=== PATIENT | male | born 1930 | race Hispanic/Latino ===

== ENCOUNTER 2016-05-16 09:26 | Inpatient (IN) | payer MEDICARE, MEDICAID ==
--- NOTE | 2016-05-16 10:05 | ED PDOC ---
Arrival/HPI - General Chief Complaint: Abnormal Labs Time Seen by Provider: 05/16/16 09:47 Historian: Patient - History of Present Illness Narrative History of Present Illness (Text): 05/16/16 10:06 Blair Juarez is an 85 year old male who presents to the emergency department sent from [facility] for history of abdominal pain and reportedly recent abnormal Abdomen CT. Patient complains of having diffused abdominal pain although he is an extremely poor historian due to dementia and reported history of mental retardation. PMD: Codi Pringle MD Past Medical History - Provider Review Nursing Documentation Reviewed: Yes - Cardiac Hx Pacemaker: No - Neurological Hx Paralysis: No - Hematological/Oncological Hx Blood Transfusions: No - Musculoskeletal/Rheumatological Hx Musculoskeletal Disorders: No - Psychiatric Hx Substance Use: No - Anesthesia Hx Anesthesia Reactions: No Hx Malignant Hyperthermia: No Family/Social History - Physician Review Nursing Documentation Reviewed: Yes Family/Social History: No Known Family HX Smoking Status: Unknown If Ever Smoked Hx Alcohol Use: No Hx Substance Use: No Allergies/Home Meds Allergies/Adverse Reactions: Allergies No Known Allergies Allergy (Verified 05/16/16 09:31) Home Medications: Home Meds Medication Instructions Recorded Confirmed Acetaminophen [Tylenol] 2 tab PO Q4H PRN 02/19/15 04/07/16 Docusate [Colace] 100 mg PO BID 02/19/15 04/07/16 Magnesium Hydroxide [Milk Of 30 ml PO PRN PRN 02/19/15 04/07/16 Magnesia] Ferrous Sulfate [Feosol] 324 mg PO DAILY 03/31/16 04/07/16 Review of Systems - Review of Systems Systems not reviewed;Unavailable: Dementia Constitutional: absent: Fevers Respiratory: absent: SOB, Cough Cardiovascular: absent: Chest Pain Gastrointestinal: Abdominal Pain. absent: Diarrhea, Nausea, Vomiting Genitourinary Male: absent: Dysuria, Frequency, Hematuria, Urinary Output Changes Musculoskeletal: absent: Back Pain, Neck Pain Neurological: absent: Headache, Dizziness Physical Exam - Physical Exam Narrative Physical Exam (Text): 05/16/16 10:04 Head: Atraumatic. Normocephalic. Eyes: PERRL. EOMI. Conjunctivae are not pale. ENT: Mucous membranes are moist and intact. No drooling or pooling of secretions. Neck: Supple. Full ROM. No JVD. No lymphadenopathy. No midline tenderness. Cardiovascular: Regular rate. Regular rhythm. Systolic murmur. Pulmonary/Chest: No evidence of respiratory distress. Clear to auscultation bilaterally. No wheezing, rales or rhonchi. Abdominal: Soft and non-distended. There is mild tenderness, but no focal rebound or guarding. There is fullness to bilateral inguinal regions, mild tenderness to palpation but soft. Genitourinary: bilateral scrotal swelling, right greater than left, no significant pain on palpation, no skin ulcerations, no penile drainage Back: No CVA tenderness. No midline tenderness. Extremities: No cyanosis. No clubbing. Full range of motion in all extremities. No calf tenderness. Distal pulses intact. Skin: Skin is warm and dry. No petechiae. No purpura. Neurological: Alert, awake. No facial droop. No slurred speech. No focal weakness noted. Psychiatric: Answers questions. Poor interaction. Does not follow all commands but answers some questions. Nontoxic appearing. Vital Signs Reviewed: Yes Vital Signs Temp Pulse Resp BP Pulse Ox 05/16/16 11:26 97 H 18 138/65 98 05/16/16 09:45 97.4 F L 107 H 18 140/68 98 Temperature: Afebrile Blood Pressure: Normal Pulse: Tachycardic Respiratory Rate: Normal Appearance: Positive for: Well-Appearing, Non-Toxic, Comfortable Pain Distress: None Medical Decision Making ED Course and Treatment: 05/16/16 10:06 Impression: 85 year old male presenting from [facility]term for abnormal Abdomen CT & and diffuse abdominal pain. Differential Diagnosis included but are not limited to: hernia, abdominal mass Plan: -- consult with PMD and package winder with review of recent ct abdomen -- Reassess and disposition CT Abdomen and Pelvis without intravenous contrast on 05/12/16 Dictator : Tyler Harris MD Impression: Right inguinal hernia containing distal/terminal ileum and cecum/ proximal ascending colon. Irregular thickening of the ileocecal valve suspicious for malignancy. Small pericolonic nodes are noted adjacent to the herniated cecum. There is also a small amount of stranding of the pericecal fat. No evidence of incarceration. Left inguinal hernia containing distal descending/ sigmoid colon. No evidence of incarceration. No bowel obstruction. The findings in this examination were discussed by telephone with Dr. Luna at 9:48 a.m. on 05/15/2016. Progress Notes: Patient sent from [facility]. snf report reviewed and further history obtained from PMD Dr. Himanshu Pringle. I reviewed patient's recent CT abdomen. On exam, there is lower abdominal inguinal swelling with scrotal swelling, although no vomiting, no melena or bright red blood per rectum. Patient with no pain on testicular palpation. Given ct findings, will consult GI, Henrietta Manueles from GI notified, and patient has been initiated on iv fluids. Repeat heart rate 88. Re-exam, no peritoneal signs. Will admit for evaluation for possible abdominal mass, re-eval hernias. 05/16/16 14:03 05/16/16 14:07 Hemoglobin 10.4. Most recent labs available from several years ago. NO MELENA OR BRIGHT RED BLOOD PER RECTUM NOTED. Cardiovascularly stable in ED with no hypotension. - Lab Interpretations Lab Results: 05/16/16 11:00 05/16/16 11:00 Lab Results 05/16/16 12:25: Blood Type Confirm O POSITIVE 05/16/16 11:15: Urine Color Yellow, Urine Appearance Clear, Urine pH 6.0, Ur Specific [place] 1.020, Urine Protein Negative, Urine Glucose (UA) Negative, Urine Ketones Negative, Urine Blood Negative, Urine Nitrate Negative, Urine Bilirubin Negative, Urine Urobilinogen 0.2, Ur Leukocyte Esterase Small H, Urine RBC 0 - 2, Urine WBC 2 - 5, Ur Epithelial Cells 0 - 2, Urine Bacteria Few 05/16/16 11:00: WBC 13.5 H, RBC 4.18, Hgb 10.4 L, Hct 34.1 L, MCV 81.6, MCH 24.9 L, MCHC 30.5 L, RDW 16.5 H, Plt Count 397, MPV 10.3, Gran % 72.5 H, Lymph % (Auto) 7.7 L, Dixon % (Auto) 16.2 H, Eos % (Auto) 3.4, Baso % (Auto) 0.2, Gran # 9.75 H, Lymph # 1.0 L, Dixon # 2.2 H, Eos # 0.5, Baso # 0.03, PT 11.9 H, INR 1.10 H, APTT 28.5, Sodium 140, Potassium 4.1, Chloride 104, Carbon Dioxide 27, Anion Gap 13, BUN 13, Creatinine 0.8, Est GFR ( Amer) > 60, Est GFR (Non- Af Amer) > 60, Random Glucose 85, Calcium 8.7, Total Bilirubin 0.3, AST 28, ALT 15, Alkaline Phosphatase 80, Lactate Dehydrogenase 445, Total Creatine Kinase 43 , Troponin I 0.01, Total Protein 7.1, Albumin 3.5, Globulin 3.6, Albumin/ Globulin Ratio 1.0 L, Blood Type O POSITIVE, Antibody Screen Negative, BBK History Checked No verified bt - RAD Interpretation Narrative RAD Interpretations (Text): 05/12/16 09:49 Procedure: CT Abdomen and Pelvis without intravenous contrast Dictator : Tyler Harris MD FINDINGS: LOWER THORAX: Unremarkable. LIVER: Unremarkable. No gross lesion or ductal dilatation. GALLBLADDER AND BILE DUCTS: Unremarkable. PANCREAS: Unremarkable. No gross lesion or ductal dilatation. SPLEEN: Unremarkable. ADRENALS: Unremarkable. No mass. KIDNEYS AND URETERS: Unremarkable. No hydronephrosis. No solid mass. VASCULATURE: Unremarkable. No aortic aneurysm. BOWEL: There are bilateral inguinal hernias. The right inguinal hernia contains the cecum and proximal ascending colon as well as a long segment of distal and terminal ileum. There is irregular mural thickening of the ileocecal valve suspicious for malignancy. There are multiple nonspecific small nodes in the pericolonic fat within the hernia sac. There is slight stranding of the adjacent pericolonic at the anterior inferior aspect of the ileocecal valve ( series 2, image 195 through 199). There is no evidence of incarceration. There is a loop of descending/sigmoid colon within the left hernia sac. Again, there is no evidence of incarceration. There are no other abnormal bowel loops identified. APPENDIX: Unremarkable. Normal appendix. PERITONEUM: Unremarkable. No free fluid. No free air. LYMPH NODES: No retroperitoneal or pelvic lymphadenopathy. BLADDER: Unremarkable. REPRODUCTIVE: Normal prostate BONES: No acute fracture. OTHER FINDINGS: None. Impression: Right inguinal hernia containing distal/terminal ileum and cecum/proximal ascending colon. Irregular thickening of the ileocecal valve suspicious for malignancy. Small pericolonic nodes are noted adjacent to the herniated cecum. There is also a small amount of stranding of the pericecal fat. No evidence of incarceration. Left inguinal hernia containing distal descending/ sigmoid colon. No evidence of incarceration. No bowel obstruction. The findings in this examination were discussed by telephone with Dr. Luna at 9:48 a.m. on 05/15/2016. Radiology Orders: 05/16/16 10:33 CHEST PORTABLE [RAD] Stat Regional Program Manager: Radiologist - EKG Interpretation EKG Interpretation (Text): 05/16/16 14:01 EKG at 1309 sinus tachycardia with premature atrial complexes, left anterior fascicular block Interpreted by ED Physician: Yes Type: 12 lead EKG - Medication Orders Current Medication Orders: Discontinued Medications Famotidine (Pepcid) 20 mg IVP STAT STA Stop: 05/16/16 14:09 - Scribe Statement The provider has reviewed the documentation as recorded by the Destiniibe Duglas Krishnan Provider Attestation: All medical record entries made by the Destiniibmaliha were at my direction and personally dictated by me. I have reviewed the chart and agree that the record accurately reflects my personal performance of the history, physical exam, medical decision making, and the department course for this patient. I have also personally directed, reviewed, and agree with the discharge instructions and disposition. Disposition/Present on Arrival - Present on Arrival Any Indicators Present on Arrival: No History of DVT/PE: No History of Uncontrolled Diabetes: No Urinary Catheter: No History of Decub. Ulcer: No History Surgical Site Infection Following: None - Disposition Have Diagnosis and Disposition been Completed?: Yes Diagnosis: Abdominal mass, Inguinal hernia Disposition Time: 12:00 Patient Plan: Admission Patient Problems: Current Active Problems Problem Status Diagnosed Abdominal mass Acute Inguinal hernia Acute Condition: FAIR
[2016-05-16 10:28] VITALS: BMI 21.6
[2016-05-16 11:23] LABS: ADD MANUAL DIFF? NO
[2016-05-16 11:34] LABS: BASO # 0.03 K/mm3 (0.0-2.0); BASO % 0.2 % (0.0-3.0); EOS # 0.5 (0.0-0.7); EOS % 3.4 % (1.5-5.0); GRAN # 9.75 (1.4-6.5); GRAN % 72.5 % (50.0-68.0); HEMATOCRIT 34.1 % (42.0-52.0); LYMPH % 7.7 % (22.0-35.0); MEAN CELL VOLUME 81.6 fL (80.0-105.0); MEAN CORPUSCULAR HEMOGLOBIN 24.9 pg (25.0-35.0); MEAN CORPUSCULAR HGB CONC 30.5 g/dl (31.0-37.0); MEAN PLATELET VOLUME 10.3 fl (7.0-11.0); MONO # 2.2 (0.1-0.6); MONO % 16.2 % (1.0-6.0); PLATELET COUNT 397 10^3/uL (120.0-450.0); RED CELL DISTRIBUTION WIDTH 16.5 % (11.5-14.5); WHITE BLOOD COUNT 13.5 10^3/ul (4.5-11.0)
[2016-05-16 11:39] LABS: ALKALINE PHOSPHATASE 80 U/L (38-133); ALT/SGPT 15 U/L (7-56); AST/SGOT 28 U/L (15-59); BILIRUBIN,TOTAL 0.3 mg/dL (0.2-1.3); BLOOD UREA NITROGEN 13 mg/dL (7-21); CALCIUM 8.7 mg/dL (8.4-10.5); CARBON DIOXIDE 27 mmol/L (21-33); CHLORIDE 104 mmol/L (98-107); GFR AFRICAN-AMERICAN > 60; GLUCOSE,RANDOM 85 mg/dL (70-110); POTASSIUM 4.1 mmol/L (3.6-5.0); SODIUM 140 mmol/L (132-148); TOTAL PROTEIN 7.1 g/dL (5.8-8.3)
[2016-05-16 11:41] LABS: INR 1.1 (0.93-1.08); PARTIAL THROMBOPLASTIN TIME 28.5 Seconds (23.7-30.8)
[2016-05-16 11:47] LABS: URINE BILIRUBIN NEGATIVE (NEGATIVE); URINE BLOOD NEGATIVE (NEGATIVE); URINE GLUCOSE (UA) NEGATIVE (NEGATIVE); URINE KETONE NEGATIVE (NEGATIVE); URINE LEUKOCYTE ESTERASE SMALL Leu/uL (NEGATIVE); URINE PROTEIN NEGATIVE mg/dL (<30 mg/dL); URINE UROBILINOGEN 0.2 E.U./dL (<1 E.U./dL)
[2016-05-16 11:51] LABS: TROPONIN I 0.01 ng/mL
[2016-05-16 11:54] LABS: URINE APPEARANCE CLEAR (CLEAR); URINE COLOR YELLOW (YELLOW)
[2016-05-16 11:56] LABS: URINE RBC 0 - 2 /hpf (0-2)
[2016-05-16 11:57] LABS: URINE BACTERIA FEW (NEG); URINE EPITHELIAL CELLS 0 - 2 /hpf (0-5)
--- NOTE | 2016-05-16 12:03 | RAD ---
HISTORY: abdominal pain COMPARISON: No prior. FINDINGS: LUNGS: No active pulmonary disease. PLEURA: No significant pleural effusion identified, no pneumothorax apparent. CARDIOVASCULAR: Normal. OSSEOUS STRUCTURES: No significant abnormalities. VISUALIZED UPPER ABDOMEN: Normal. OTHER FINDINGS: None. IMPRESSION: No active disease.
[2016-05-16] MEDS: Dextrose 5%/0.45% NS 1,000 ML IV SCH (15:18)
[2016-05-16] MEDS ORDERED: Pneumococcal 23-Valent Vaccine IM ONE (18:58)
[2016-05-16] MEDS ORDERED: Influenza Vaccine 45 MCG/0.5 ml IM ONE (18:58)
--- NOTE | 2016-05-16 23:50 | CON ---
DATE: 05/16/2016 The patient was seen and examined in chart reviewed this afternoon. REQUEST FOR CONSULT: For abdominal mass with hernia. HISTORY OF PRESENT ILLNESS: This is an 85-year-old male, who was sent from [facility] with history of abdominal pain and recent abnormal CT scan. The patient does complain of diffuse abdominal pain. He does have history of dementia and mental retardation and is a poor historian. History obtained from the nursing staff and medical chart. He had an endoscopy and a colonoscopy back in 04/07/16 for anemia. He was found to have internal hemorrhoids, diverticulosis, although it was an incomplete colonoscopy, due to hernia with redundancy of the sigmoid colon. So, the patient was sent for a CT scan of abdomen and pelvis that reported bilateral inguinal hernia with the right inguinal hernia containing cecum and proximal ascending colon. There was also irregular mural thickening of the IC valve, suspicious for malignancy; see CT scan report. 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 The polyps were removed by cold forceps, as well as nonbleeding angioectasias with APC. His gastric biopsies showed mild chronic gastritis with H. pylori negative. The gastric polyp shows mild chronic inflammation and was H. pylori negative. The patient does not complain of any nausea, minimal abdominal discomfort, but he does not appear to be in any distress. No shortness of breath or chest pain. PAST MEDICAL HISTORY: As stated above. PAST SURGICAL HISTORY: EGD, colonoscopy, 04/15/2016, as mentioned above. ALLERGIES: No known drug allergies. MEDICATIONS: Reviewed as per MAR. SOCIAL HISTORY: He comes from [facility]. He has no history of smoking, EtOH, or substance abuse. REVIEW OF SYSTEMS: Positive findings, see HPI. The patient is a poor historian. VITAL SIGNS: Temperature is 97.4, blood pressure 138/65, pulse 97, respirations 18, 98% on room air. LABORATORY WORK: WBC is 13.5, H and H is 10.4 and 34.1, platelets 397. PT 11.9 , INR 1.10, PTT 28.5. Sodium 140, K 4.1, chloride 104, BUN 13, creatinine is 0.8. Urinalysis did show small leukocyte esterase, negative for blood, ketones He had chest x-ray on admission and it did not show any active disease. PHYSICAL EXAMINATION: HEENT: Sclerae are anicteric. NECK: Supple. CARDIAC: S1, S2. LUNGS: Sounds with decreased breath sounds. Good air entry. No rales or wheeze. ABDOMEN: With bowel sounds, soft, nondistended, some mild tenderness, and visible and palpable bilateral inguinal hernia with tenderness and it is soft. He does have bilateral scrotal swelling, right feeling larger than left. EXTREMITIES: Positive pulses. No edema, no calf tenderness. NEUROLOGIC: He is awake and alert. Answers some questions, but does not follow commands well. Poor historian. ASSESSMENT: This is an 85-year-old male, from [facility], with history of anemia, dementia, and history of mental retardation, who came for further evaluation for abnormal CT scan. He has a history of inguinal hernia. PLAN: The patient can start on clear liquid diet. Monitor H and H and probably would recommend surgical evaluation. We will put him on some GI prophylaxis and DVT prophylaxis and put some SCD boots on. Thank you for this consult and for allowing us to participate in your patient's care. We will make further recommendations based upon the patient's clinical course. The patient was seen and case discussed with Dr. Luna. Henrietta KIRBY cc: [id number] TT: 05/16/2016 23:49:34 Confirmation # [id number] Dictation # [id number] GOFF
--- NOTE | 2016-05-17 05:50 | HP ---
HISTORY OF PRESENT ILLNESS: This 85-year-old male was examined earlier and discussed in detail with Dr. Hendrix from the Emergency Room and Dr. Ann Luna from GI. The patient is an 85-year-old and a resident of the [facility] in [place], [place]. He has chronic mental retardation, and there are no family members that I am aware of that can be called on his behalf. Recently, he was noted to have iron deficiency anemia, which prompted GI workup with Dr. Luna. He was unable to do a colonoscopy because of poor prep and proceed with an abdominal CAT scan that revealed bilateral inguinal hernias with the right inguinal hernia containing cecum and proximal ascending colon and showing irregular mural thickening of the ileocecal valve suspicious for malignancy. Dr. Luna was notified, and the patient was brought to the [facility] for further evaluation of the above. It should be noted that the patient does give his own consents and that there are no next of kin family members that are able to be reached on his behalf. PAST MEDICAL HISTORY: Also significant for mental retardation, probable dementia,degenerative arthritis and anemia. REVIEW OF SYSTEMS: HEAD: There was no headache or seizures. EYES: No change in visual acuity. EARS: No hearing loss. THROAT: No swallowing difficulty. NECK: No stiffness. CARDIAC: No chest pain. PULMONARY: No cough, no hemoptysis. GASTROINTESTINAL: No nausea, no vomiting, no bright red blood per rectum, no melena. GENITOURINARY: No dysuria. Bilateral inguinal hernias. SKIN: Without rash. VASCULAR: No claudication. PSYCHOLOGICAL: No anxiety. NEUROLOGICAL: No knowledge of stroke. ALLERGIES AND MEDICATIONS: He has no known allergies to medication and is on no chronic medications at this time. PHYSICAL EXAMINATION: VITAL SIGNS: Temperature 97.4, respirations 18, pulse 92, blood pressure 135/ 65 with a pulse ox of 98% on room air. HEENT: Head normocephalic, atraumatic. Eyes show no icterus. Ears were clear. Throat not injected. NECK: Supple. HEART: Regular S1, S2. No pathological rubs, murmurs, or gallops. LUNGS: Clear to auscultation. ABDOMEN: Obese, nontender, without palpable organomegaly. There was no rebound , no guarding, no tenderness. Audible bowel sounds in all 4 quadrants. GENITOURINARY: His scrotum showed bilateral inguinal hernias, right greater than left. EXTREMITIES: Showed no clubbing, no cyanosis, no edema. SKIN: Warm and dry with good turgor. VASCULAR: Legs warm to touch. PSYCHOLOGICAL: Alert. NEUROLOGIC: Grossly intact. LABORATORY DATA: White count 13,500; hemoglobin 10.4; hematocrit 34.1; platelets 397,000. Sodium 140, K 4.1, chloride 104, bicarb 27, BUN 13, creatinine 0.8. Random blood sugar was 85. All liver function testing was normal including bilirubin 0.3, AST 28, ALT 15 and alk phos 80. His CPK was normal at 43, and troponin was normal at 0.01. Urinalysis was unremarkable. IMPRESSION: An 85-year-old male with iron deficiency anemia, bilateral inguinal hernias and a suggestion of an ileocecal mass on his abdominal CT performed by Dr. Luna as an outpatient with the cecum being located in his scrotum because of the inguinal hernia. PLAN: At present consult Dr. Ann Luna regarding further evaluation of the CAT scan and what his next step will be to further evaluate these CAT scan findings. The patient has been placed on gentle IV fluids. He is receiving Pepcid 20 mg IV daily and a clear liquid diet and has been ordered to have blood and urine cultures given his recent leukocytosis in the absence of obvious infection, and we will repeat a CBC in the a.m., and I will hold on parenteral antibiotics at the present time. The patient is ordered also to have a repeat comprehensive metabolic panel, CBC. He will be placed on anti- embolism stockings and physical therapy for ambulation safety. I will place the patient on fall precautions and discuss further workup and interventions with Dr. Luna based on his clinical workup and progress. Overall prognosis is poor, but stable at present, and the patient does have some sense of the issues involved. Surgical and cardiology consults will be obtained. Greater than forty five minutes was spent in the care, review and discussion of this case with nursing, social service, case management and coconsultants. Codi Pringle MD cc: :[id number] TT: 05/17/2016 05:49:30 hn MTDD
[2016-05-17 07:32] LABS: ADD MANUAL DIFF? NO
[2016-05-17 07:35] LABS: BASO # 0.05 K/mm3 (0.0-2.0); BASO % 0.5 % (0.0-3.0); EOS # 0.7 (0.0-0.7); GRAN # 5.88 (1.4-6.5); GRAN % 59.3 % (50.0-68.0); HEMATOCRIT 32.3 % (42.0-52.0); LYMPH # 1.6 (1.2-3.4); LYMPH % 16.1 % (22.0-35.0); MEAN CELL VOLUME 81.8 fL (80.0-105.0); MEAN CORPUSCULAR HEMOGLOBIN 24.8 pg (25.0-35.0); MEAN CORPUSCULAR HGB CONC 30.3 g/dl (31.0-37.0); MEAN PLATELET VOLUME 9.7 fl (7.0-11.0); MONO # 1.7 (0.1-0.6); MONO % 17.1 % (1.0-6.0); PLATELET COUNT 369 10^3/uL (120.0-450.0); RED CELL DISTRIBUTION WIDTH 16.5 % (11.5-14.5); WHITE BLOOD COUNT 9.9 10^3/ul (4.5-11.0)
[2016-05-17 08:20] LABS: ALB/GLOB RATIO 0.9 (1.1-1.8); ALKALINE PHOSPHATASE 67 U/L (38-133); ALT/SGPT 16 U/L (7-56); AST/SGOT 30 U/L (15-59); BILIRUBIN,TOTAL 0.5 mg/dL (0.2-1.3); BLOOD UREA NITROGEN 8 mg/dL (7-21); CALCIUM 8.6 mg/dL (8.4-10.5); CARBON DIOXIDE 29 mmol/L (21-33); CHLORIDE 107 mmol/L (98-107); GFR AFRICAN-AMERICAN > 60; GLUCOSE,RANDOM 99 mg/dL (70-110); POTASSIUM 4.6 mmol/L (3.6-5.0); SODIUM 142 mmol/L (132-148); TOTAL PROTEIN 6.7 g/dL (5.8-8.3)
--- NOTE | 2016-05-17 09:06 | CARD ---
APPROVED REPORT EKG Measurement Heart [id number] CT [id number] <Conclusion> Sinus tachycardia with premature atrial complexes Left anterior fascicular block Abnormal ECG
--- NOTE | 2016-05-17 09:30 | CON ---
DATE: 05/16/2016 SUBJECTIVE: This patient was seen and evaluated earlier. The patient was initially seen in our offi ce for evaluation of iron deficiency anemia. Subsequently, the patient had an incomplete colonoscopy due to the large inguinal hernia which cannot be reduced. The patient had a CT scan done as an outp atient and found to have a large ileocecal area lesion and a large ventral hernia. The patient was a dmitted now for further evaluation. The patient also has anemia with a drop in blood count from 14.1 -10.4. PHYSICAL EXAMINATION: On examination, the patient does have bilateral large inguinal hernia which is not reducible. ABDOMEN: Softly distended. RECOMMENDATION: Iron deficiency anemia, large inguinal hernia, incomplete colonoscopy. The CT showe d a lesion in the ileocecal valve area. This patient would benefit from surgical evaluation in view of this large hernia in the cecal region. Follow up of the hemoglobin and hematocrit. We will start the patient on clear liquid diet. Thank you very much for allowing us to participate in the care of the patient. We will continue to c losely follow up his care and suggest further management based on the clinical course. Ann Luna MD cc: [id number] TT: 05/17/2016 09:30:16 Confirmation # [id number] Dictation # [id number]
--- NOTE | 2016-05-17 12:30 | PN ---
DATE: 05/17/2016 Seen and examined at the bedside earlier late this morning. Apparently, the patient did not sleep th roughout the night and currently is now sleeping, but he is arousable. No acute overnight events are reported. No reports of nausea, vomiting or abdominal pain or overt GI bleed. No shortness of pooja th or chest pain. VITAL SIGNS: Temperature is 98, his blood pressure is 103/54, pulse is 90, respirations 20, 95 on ro om air. LABORATORY DATA: Today, WBC is 9.9, his WBCs are improved, H and H is 9.8 and 32.3, platelets are 36 9. Sodium 142, K 4.6, chloride 107, carbon dioxide 29, BUN is 8, creatinine 0.7, total bilirubin 0.5 , AST 30, ALT 16, alk phos is 67. Urinalysis shows small leuko esterase. He did have a urine cultur e done which is showing gram-negative li. PHYSICAL EXAMINATION: HEENT: Sclerae are nonicteric. NECK: Supple. CARDIAC: S1, S2. LUNGS: With decreased breath sounds, but good air entry, no rales or wheeze. ABDOMEN: With bowel sounds. It is soft, nontender. Right now visible inguinal hernia. EXTREMITIES: No edema. NEUROLOGIC: Awake and alert. ASSESSMENT: This is an 85-year-old male with history of dementia who is a poor historian with histor y of iron deficiency anemia with abnormal CT scan. He has history of inguinal hernia, status post in complete colonoscopy. He had a CAT scan showing lesion in the ileocecal valve. Now, he is positive urinary tract infection with gram-negative li. PLAN: Right now, we will continue the clear liquid diet. He is going to be evaluated by surgery as well as cardiology for cardiac evaluation for possible surgery. Continue GI prophylaxis. He is on P epcid and on IV fluids, getting iron supplements. The patient was seen and case discussed with Dr. Nakita cherry. Henrietta Natali KOFI cc: [id number] TT: 05/17/2016 12:29:35 Confirmation # [id number] Dictation # [id number]
--- NOTE | 2016-05-17 12:58 | PN ---
DATE: 05/17/2016 This 85-year-old male was examined at the bedside in the presence of his nurse, Kim Valdez. Sabrina jett is admitted because of bilateral inguinal hernias and a questionable cecal mass on outpatient CAT s brittney that was performed by Dr. Ann Luna from GI. The patient has anemia. He was unable to have a successful colonoscopy, and the dilemma is how to proceed regarding these abnormal CAT scan fi ndings in an 85-year-old male who is retarded with dementia and no guardian. PHYSICAL EXAMINATION: VITAL SIGNS: At present, temperature 98, respirations 20, pulse 90, blood pressure 103/54 with a pul se ox of 95%. HEAD: Normocephalic, atraumatic. EYES: Show no icterus. EARS: Clear. THROAT: Noninjected. NECK: Supple. HEART: Regular S1, S2. LUNGS: Clear. ABDOMEN: Soft, nontender, no palpable organomegaly. He has bilateral inguinal hernias, right greate r than left. EXTREMITIES: Show no clubbing, no cyanosis, no edema. SKIN: Without rash. NEUROLOGIC: Intact. PSYCHOLOGICAL: Retarded and mild dementia. VASCULAR: Legs warm to touch. LABORATORY DATA: Urinalysis unremarkable except for few bacteria, white count 9900, hemoglobin 9.8, hematocrit 32.3, platelets 369,000. Chemistry: Sodium 142, K 4.6, chloride 107, bicarbonate 29, BUN 8, creatinine 0.7, random blood sugar is 99. Bilirubin 0.5, AST 30, ALT 16, alkaline phosphatase 67 . MICROBIOLOGY: Blood cultures show no growth and his urine is showing a gram-negative il. ID and se nsitivity to follow. IMPRESSION: An 85-year-old male with no legal guardian, chronic dementia, retardation and now with b ilateral inguinal hernias and a questionable cecal mass on outpatient CAT scan, as well as anemia. I have consulted Dr. Ann Luna from GI, Dr. Alberto Peterson from surgery and Dr. Edi Ayers from cardiology regarding the above. The patient will be treated with Ativan 0.5 mg IV q. 6 hours p.r.n. agitation, Colace 100 mg p.o. b.i.d., D5 0.45 saline at 80 mL per hour, Feosol 324 mg p.o. daily, Pe pcid 20 mg IV daily and he is on a liquid diet at present. He remains on fall precautions. I will o rder Bactrim for presumed urinary tract infections and check on his ID and sensitivity report. I praneeth l order a routine PSA, and it remains challenging how best to proceed in the care of this challenged patient. I will be discussing with all of the consultants and I did have a lengthy bedside discussio n with his nurse. Greater than 40 minutes was spent in the care, coordination of care, review of car e for this patient today. Codi Pringle MD cc: [id number] TT: 05/17/2016 12:58:26 Confirmation # [id number] Dictation # [id number] mn
[2016-05-17] MEDS: Tmp-Smz 400 mg-80 mg SS Tab PO SCH ×2 (14:54→22:05)
--- NOTE | 2016-05-17 15:08 | CP.PCM.CON ---
History of Present Illness - History of Present Illness History of Present Illness: Surgery: Dr. Peterson CC: Abd pain HPI: 85M w. pmh of mental retardation and Iron deficiency anemia presents to ED from [facility] w. abd pain. Pt is a poor historian and history was gathered from review of medical chart. Pt was initially seen by Dr. Luna for workup of iron deficiency anemia. A colonoscopy was attempted and was incomplete 2/2 a large inguinal hernia that could not be reduced. A CT of the abd and pelvis was subsequently performed and showed large B/L inguinal hernias containing bowel, R side concerning for mass. Per review of medical records, prior attempts to make contact w. family members has been unsuccessful. Attempts were made today to reach out to Sagar and Demetri Potter, and this too was unsuccessful. We will tentatively plan for OR this upcoming sunday for resection of cecal mass and repair of hernia. PMH: Iron deficiency anemia, MR, gastritis PSH: none Meds: MAR reviewed NKDA Social: lives in [place], no ETOH, tobacco, or drugs Fhx: Unknown Review of Systems - Review of Systems Systems not reviewed;Unavailable: Dementia Past Patient History - Past Social History Smoking Status: Former Smoker - CARDIAC Hx Cardiac Disorders: No Hx Pacemaker: No - PULMONARY Hx Respiratory Disorders: No - NEUROLOGICAL Hx Neurological Disorder: Yes Hx Dementia: Yes - HEENT Hx HEENT Problems: No - ENDOCRINE/METABOLIC Hx Endocrine Disorders: No - HEMATOLOGICAL/ONCOLOGICAL Hx Blood Disorders: Yes Hx Anemia: Yes - INTEGUMENTARY Hx Dermatological Problems: No - MUSCULOSKELETAL/RHEUMATOLOGICAL Hx Musculoskeletal Disorders: No Hx Falls: Yes Hx Unsteady Gait: Yes - GASTROINTESTINAL Hx Gastrointestinal Disorders: Yes (HERNIA) - GENITOURINARY/GYNECOLOGICAL Hx Genitourinary Disorders: Yes (ENLARGED PROSTATE) - PSYCHIATRIC Hx Psychophysiologic Disorder: No Hx Substance Use: No - SURGICAL HISTORY Hx Surgeries: No - ANESTHESIA Hx Anesthesia Reactions: No Hx Malignant Hyperthermia: No Meds Allergies/Adverse Reactions: Allergies Allergy/AdvReac Type Severity Reaction Status Date / Time No Known Allergies Allergy Verified 05/16/16 17:12 - Medications Medications: Current Medications Acetaminophen (Tylenol 325mg Tab) 650 mg PO Q4H PRN PRN Reason: FEVER, PAIN Docusate Sodium (Colace) 100 mg PO BID [facility] Last Admin: 05/17/16 11:09 Dose: Not Given Famotidine (Pepcid) 20 mg IVP DAILY [facility] Last Admin: 05/17/16 11:10 Dose: 20 mg Ferrous Sulfate (Feosol) 324 mg PO DAILY [facility] Last Admin: 05/17/16 11:09 Dose: Not Given Dextrose/Sodium Chloride (Dextrose 5%/0.45% Ns 1000 Ml) 1,000 mls @ 80 mls/hr IV .[id number] [facility] Last Admin: 05/16/16 15:18 Dose: 80 mls/hr Lorazepam (Ativan) 0.5 mg IVP Q6H PRN; Protocol PRN Reason: Anxiety Trimethoprim/Sulfamethoxazole (Bactrim Ss Tab) 1 tab PO Q12 [facility] PRN Reason: Protocol Physical Exam - Constitutional Appears: Non-toxic, No Acute Distress - Head Exam Head Exam: ATRAUMATIC, NORMOCEPHALIC - Eye Exam Eye Exam: EOMI - ENT Exam ENT Exam: Mucous Membranes Moist, Normal External Ear Exam - Neck Exam Neck exam: Positive for: Full Rom - Respiratory Exam Respiratory Exam: NORMAL BREATHING PATTERN. absent: Accessory Muscle Use, Respiratory Distress - GI/Abdominal Exam GI & Abdominal Exam: Soft. absent: Distended, Firm, Guarding, Rigid, Tenderness Additional comments: Large B/L inguinal hernias, non-reducible, non-tender - Extremities Exam Extremities exam: Negative for: calf tenderness, pedal edema - Neurological Exam Neurological exam: Alert - Psychiatric Exam Psychiatric exam: Normal Affect, Normal Mood Results - Vital Signs Recent Vital Signs: Last Vital Signs Temp 98.0 F 05/17/16 07:43 Pulse 90 05/17/16 07:43 Resp 20 05/17/16 07:43 BP 103/54 L 05/17/16 07:43 Pulse Ox 95 05/17/16 07:43 - Labs Result Diagrams: 05/17/16 07:24 05/17/16 07:24 Labs: Laboratory Results - last 24 hr 05/17/16 05/17/16 07:24 12:57 WBC 9.9 D RBC 3.95 Hgb 9.8 L Hct 32.3 L MCV 81.8 MCH 24.8 L MCHC 30.3 L RDW 16.5 H Plt Count 369 MPV 9.7 Gran % 59.3 Lymph % (Auto) 16.1 L [place] % (Auto) 17.1 H Eos % (Auto) 7.0 H Baso % (Auto) 0.5 Gran # 5.88 Lymph # 1.6 [place] # 1.7 H Eos # 0.7 Baso # 0.05 Sodium 142 Potassium 4.6 Chloride 107 Carbon Dioxide 29 Anion Gap 11 BUN 8 Creatinine 0.7 Est GFR ( Amer) > 60 Est GFR (Non-Af Amer) > 60 Random Glucose 99 Calcium 8.6 Total Bilirubin 0.5 AST 30 ALT 16 Alkaline Phosphatase 67 Total Protein 6.7 Albumin 3.2 Globulin 3.5 Albumin/Globulin Ratio 0.9 L Prostate Specific Ag 1.5 - Imaging and Cardiology CT scan - abdomen Status: Image reviewed by me, Report reviewed by me Assessment & Plan - Assessment and Plan (Free Text) Assessment: 85M w. B/L inguinal hernia and cecal mass -will tentatively plan for OR on Sunday for resection of cecal mass and hernia repair -c/w current medical management -will d/w attending Mily PGY2 Surgery
--- NOTE | 2016-05-17 15:20 | CON ---
DATE: 05/17/2016 REQUESTING PHYSICIAN: Dr. Pringle REASON FOR CONSULTATION: Preoperative cardiac evaluation. HISTORY OF PRESENT ILLNESS: This is an 85-year-old man, who has a history of mental retardation and is a fpc resident at [facility]. He apparently was recently found to have iron deficiency anemia and a GI workup was initiated. Colonoscopy was inconclusive because of a poor preparation. A CT of the abdomen revealed large bilateral inguinal hernias with the right inguinal hernia containing cecum and proximal ascending colon and showing evidence of mural thickening suspicious for malignancy. The patient is seen resting in bed on 5R. He gives very little history and is somewhat somnolent, but arousable. Attempts to contact next of kin, Sagar and Demetri Potter, but was unsuccessful. The rest of the history is obtained via the chart. PAST MEDICAL HISTORY: Notable for the problems mentioned above. He reportedly has a history of arthritis as well. CURRENT MEDICATIONS: Include Ativan p.r.n., Bactrim, Colace, ferrous sulfate, Pepcid and IV fluids. ALLERGIES: He has no reported allergies. SOCIAL HISTORY: He denies alcohol or tobacco use. FAMILY HISTORY: He cannot recall. REVIEW OF SYSTEMS: A 10-point is limited, but adds no further information. PHYSICAL EXAMINATION: GENERAL: He is an elderly man who appears comfortable at rest. VITAL SIGNS: His blood pressure is 102/50 with a pulse of 90, respirations are 14. He is afebrile. HEENT: Normocephalic, atraumatic. NECK: Supple, no JVD. CHEST: Bilateral scattered rhonchi. HEART: PMI normal position. No pathologic murmur or gallops noted. ABDOMEN: Soft with normoactive bowel sounds. Very large bilateral inguinal hernias are noted. EXTREMITIES: 1+ ankle edema is present. SKIN: Warm and dry. PSYCHIATRIC: Flat affect. NEUROLOGIC: No gross motor or sensory deficits appreciable. However, full evaluation is limited because of patient cooperation. DIAGNOSTIC DATA: Potassium is 4.6. BUN and creatinine are 8 and 0.7. Hemoglobin and hematocrit are 9.8 and 32.3 with a platelet count of 269,000, white count is 9.9. Troponin is 0.01. Electrocardiogram revealed sinus tachycardia with occasional supraventricular premature beats and left anterior hemiblock. Chest x-ray reveals a normal cardiac silhouette with clear lung carranza. IMPRESSION: 1. Iron deficiency anemia with large bilateral inguinal hernias and a suspicious area in his ileocecum suggestive of possible malignancy. 2. History of mental retardation. 3. No clear history of cardiac disorder. RECOMMENDATIONS: Attempts will be made to contact family members for further information. If surgery is to be undertaken, consideration may need to be given to a preoperative stress test given his advanced age and uncertain presence of cardiac risk factors. At the very least, an echocardiogram to assess his left ventricular function would be reasonable. Further recommendations will be made after decision has been made as to the appropriateness of surgery at this time. We will follow along and make further recommendations as appropriate. Vishal Fraser MD cc: [phone] TT: 05/17/2016 15:19:29 Confirmation # [id number] Dictation # [id number] en MTDD
[2016-05-17] MEDS: Dextrose 5%/0.45% NS 1,000 ML IV SCH (17:57)
--- NOTE | 2016-05-17 22:46 | PN ---
DATE: 05/17/2016 ADDENDUM This is an addendum to the GI progress report dictated by GUY Billy. The patient was seen and evaluated earlier. The patient does have the large, irreducible inguinal h ernia, and left inguinal hernia at the loop of sigmoid colon was in the hernia sac. This prevented t he advancement of the scope. Colonoscopy was incomplete. The CT scan showed a lesion in the ileocec al valve area. This patient further attempt of colonoscopy is not possible in view of the findings, and will discuss with the surgeon. The reasonable option is to consider intraoperative evaluation. Thank you very much for allowing us to participate in the care of the patient. Ann Luna MD cc: [phone] TT: 05/17/2016 22:45:59 Confirmation # [id number] Dictation # [id number] kate
[2016-05-18] MEDS: Dextrose 5%/0.45% NS 1,000 ML IV SCH ×2 (03:54→18:03)
--- NOTE | 2016-05-18 08:03 | CP.PCM.PN ---
Subjective - Date & Time of Evaluation Date of Evaluation: 05/18/16 Time of Evaluation: 08:00 - Subjective Subjective: Stable on 5R. No CP or SOB. Poor historian. Case D/W Dr. Pringle and Dr. Fraser. V/S noted PE: Lungs: clear Cor.: S1S2 Abd.: soft Ext.: mild edema Neuro.; alert ECG 05/16: RSR, LAHB, NSSTW changes CXR: NAD BC x2 NG at 48 hrs. Urine C+S + GNR Objective - Vital Signs/Intake and Output Vital Signs (last 24 hours): Temp Pulse Resp BP Pulse Ox 98.2 F 91 H 20 128/73 97 05/17/16 16:00 05/17/16 16:00 05/17/16 16:00 05/17/16 16:00 05/17/16 16:00 Intake and Output: 05/18/16 05/18/16 06:59 18:59 Intake Total 2280 Balance 2280 - Medications Medications: Current Medications Acetaminophen (Tylenol 325mg Tab) 650 mg PO Q4H PRN PRN Reason: FEVER, PAIN Docusate Sodium (Colace) 100 mg PO BID [facility] Last Admin: 05/17/16 17:25 Dose: 100 mg Famotidine (Pepcid) 20 mg IVP DAILY [facility] Last Admin: 05/17/16 11:10 Dose: 20 mg Ferrous Sulfate (Feosol) 324 mg PO DAILY [facility] Last Admin: 05/17/16 11:09 Dose: Not Given Dextrose/Sodium Chloride (Dextrose 5%/0.45% Ns 1000 Ml) 1,000 mls @ 80 mls/hr IV .[id number] [facility] Last Admin: 05/18/16 03:54 Dose: 80 mls/hr Lorazepam (Ativan) 0.5 mg IVP Q6H PRN; Protocol PRN Reason: Anxiety Last Admin: 05/18/16 01:08 Dose: 0.5 mg Trimethoprim/Sulfamethoxazole (Bactrim Ss Tab) 1 tab PO Q12 [facility] PRN Reason: Protocol Last Admin: 05/17/16 22:05 Dose: 1 tab - Labs Labs: 05/17/16 07:24 05/17/16 07:24 PT 11.9 Seconds (9.9-11.8) H 05/16/16 11:00 INR 1.10 (0.93-1.08) H 05/16/16 11:00 APTT 28.5 Seconds (23.7-30.8) 05/16/16 11:00 Assessment and Plan - Assessment and Plan (Free Text) Plan: Assessment: Bilat IHRs with incarcerated bowel and with 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 Anemia Mental Retardation/Dementia Limited medical history Abnormal ECG with LAHB UTI Plan: As per Dr. Pringle, Dr. Luna, Surgery Check echocardiogram If surgery is deemed necessary he should be considered at least moderately increased cardiac risk. Would contact nephews if possible to get their input on how to proceed. Perhaps a conservative approach would be best given his overall poor prognosis and limited quality of life. Case d/w Dr. Pringle and Dr. fraser.
--- NOTE | 2016-05-18 08:52 | CP.PCM.PN ---
Subjective - Date & Time of Evaluation Date of Evaluation: 05/18/16 Time of Evaluation: 08:47 - Subjective Subjective: SURGERY NOTE FOR DR. HERBERT 85M seen and examined at bedside. Patient resting comfortably. Complains of scrotal discomfort secondary to inguinal hernia. Denies nausea and vomiting, fevers and chills. Objective - Vital Signs/Intake and Output Vital Signs (last 24 hours): Temp Pulse Resp BP Pulse Ox 97.3 F L 87 18 111/69 94 L 05/18/16 08:00 05/18/16 08:00 05/18/16 08:00 05/18/16 08:00 05/18/16 08:00 Intake and Output: 05/18/16 05/18/16 06:59 18:59 Intake Total 2280 Balance 2280 - Medications Medications: Current Medications Acetaminophen (Tylenol 325mg Tab) 650 mg PO Q4H PRN PRN Reason: FEVER, PAIN Docusate Sodium (Colace) 100 mg PO BID [facility] Last Admin: 05/17/16 17:25 Dose: 100 mg Famotidine (Pepcid) 20 mg IVP DAILY [facility] Last Admin: 05/17/16 11:10 Dose: 20 mg Ferrous Sulfate (Feosol) 324 mg PO DAILY [facility] Last Admin: 05/17/16 11:09 Dose: Not Given Dextrose/Sodium Chloride (Dextrose 5%/0.45% Ns 1000 Ml) 1,000 mls @ 80 mls/hr IV .[id number] [facility] Last Admin: 05/18/16 03:54 Dose: 80 mls/hr Lorazepam (Ativan) 0.5 mg IVP Q6H PRN; Protocol PRN Reason: Anxiety Last Admin: 05/18/16 01:08 Dose: 0.5 mg Trimethoprim/Sulfamethoxazole (Bactrim Ss Tab) 1 tab PO Q12 [facility] PRN Reason: Protocol Last Admin: 05/17/16 22:05 Dose: 1 tab - Labs Labs: 05/17/16 07:24 05/17/16 07:24 PT 11.9 Seconds (9.9-11.8) H 05/16/16 11:00 INR 1.10 (0.93-1.08) H 05/16/16 11:00 APTT 28.5 Seconds (23.7-30.8) 05/16/16 11:00 - Constitutional Appears: Well, Non-toxic, No Acute Distress - Head Exam Head Exam: ATRAUMATIC - Respiratory Exam Respiratory Exam: Clear to Ausculation Bilateral, NORMAL BREATHING PATTERN - Cardiovascular Exam Cardiovascular Exam: REGULAR RHYTHM, +S1, +S2 - GI/Abdominal Exam GI & Abdominal Exam: Soft. absent: Distended, Firm, Guarding, Rigid, Tenderness , Rebound - Exam Exam: Testicular Tenderness (tenderness, hernia sac, mass felt within hernia , bowel within hernia) - Neurological Exam Neurological Exam: Alert, Awake - Skin Skin Exam: Dry, Intact, Normal Color, Warm Assessment and Plan - Assessment and Plan (Free Text) Assessment: 85M w. B/L inguinal hernia and cecal mass - tentatively plan for OR on Sunday - c/w current medical management - will d/w attending Further recs discuss with Dr. Nicholas Cordero, PGY1
[2016-05-18] MEDS: Tmp-Smz 400 mg-80 mg SS Tab PO SCH ×2 (11:06→22:10)
--- NOTE | 2016-05-18 11:40 | PN ---
DATE: 05/18/2016 This 85-year-old male was examined at his bedside. He remains alert, in no acute distress and is currently on a clear liquid diet as well as oral Bactrim for a urinary tract infection that is showing Proteus vulgaris sensitive to Bactrim. The patient has no fever or chills. 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 It should be noted that the patient has no next of kin that can be reached. He has no legal guardian that is available. Innumerable attempts have been made to try to reach a blood relative that have been unsuccessful and the patient has been undergoing testing for the above issues with administrative consents. PHYSICAL EXAMINATION: VITAL SIGNS: Temperature is 97.3, respirations 18, pulse 87 and blood pressure 111/69 with a pulse ox of 97% on room air. HEAD: Normocephalic, atraumatic. EYES: Show no icterus. EARS: Clear. THROAT: Noninjected. NECK: Supple. HEART: S1, S2. LUNGS: Clear. ABDOMEN: Soft. EXTREMITIES: Show no clubbing, no cyanosis, no edema. SKIN: Without rash. NEUROLOGICAL: Unchanged. PSYCHOLOGICAL: Alert. VASCULAR: Legs warm to touch. GENITOURINARY: He has bilateral inguinal hernias, right greater than left. They are not reducible. His PSA is 1.5. Sodium 142, K 4.6, chloride 107, bicarbonate 29, BUN 8, creatinine 0.7, random blood sugar is 99. All liver function testing is normal including bilirubin 0.5, AST 30, ALT 16, alkaline phosphatase 67. White count 9900, hemoglobin 9.8, hematocrit 32.3, platelets 369,000. Blood cultures show no growth at 24 hours. Urine culture shows Proteus vulgaris sensitive to Bactrim. IMPRESSION: An 85-year-old male with mental retardation, iron deficiency anemia , bilateral inguinal hernias, nonreducible, with a questionable cecal mass on outpatient CAT scan, Proteus vulgaris urinary tract infection and probable moderate risk for surgery intervention given advanced age and abnormal EKG. Consultants on case include Dr. Edi Ayers from cardiology, Dr. Alberto Peterson from surgery, Dr. Ann Luna from GI. The patient is undergoing elective workup including 2D echocardiogram and should his 2D echocardiogram be acceptable, he will still be a moderate risk for any surgical intervention. 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 He will be treated presently with Bactrim 1 tablet b.i.d., Colace 100 mg b.i.d., D5 0.45 saline at 80 mL per hour, Feosol 324 mg p.o. daily, Pepcid 20 mg IV daily. He remains on clear liquid diet, fall precautions, anti-embolism stockings and will have an order for physical therapy for gait training and prevention of deep venous thrombosis. Surgery tentatively has the patient on schedule for surgery on Sunday should he be cleared by cardiology evaluation. Overall prognosis remains poor, but stable at present. Greater than 40 minutes was spent in the care, coordination of care, discussion of care with co- consultants and review of testings and workup on this patient to date. Codi Pringle MD cc: [phone] TT: 05/18/2016 11:39:33 Confirmation # [id number] Dictation # [id number] MTDD
--- NOTE | 2016-05-18 17:05 | PN ---
DATE: 05/18/2016 Seen and examined at the bedside earlier today. The patient is more awake. No acute overnight event s. The patient denies nausea. No vomiting or abdominal pain, although the patient is a poor histori an, remains on full liquids. No complaints of difficulty swallowing. No reports of any diarrhea or overt GI bleed. VITAL SIGNS: Temperature is 97.3, blood pressure 111/69, pulse 87, respirations 18, and 94 on room a ir. LABORATORY DATA: WBC is 9.9, hemoglobin 9.8, hematocrit is 32.3, platelets of 369. No new labs toda y. PHYSICAL EXAMINATION: HEENT: Sclerae are anicteric. NECK: Supple. CARDIAC: S1, S2. LUNGS: With decreased breath sounds, but no rales or wheeze. ABDOMEN: With bowel sounds, soft, nontender, positive inguinal hernia. EXTREMITIES: Trace edema. NEUROLOGIC: He is awake and alert. Poor historian. ASSESSMENT: The patient with anemia, history of mental retardation, dementia, large unreducible ingu inal hernia and left inguinal hernia, loop of sigmoid colon with hernia sac and abnormal CT scan show ing lesion at the ileocecal valve. PLAN: The patient is tentatively scheduled for the OR on Sunday. Continue the full liquid diet. Mo nitor his H and H. Continue GI prophylaxis. He is on Pepcid. He is on iron p.o. and stool softener s. He is also on Bactrim, positive UTI, Proteus vulgaris as per surgery, cardiology. The patient wa s seen and case discussed with Dr. Luna. Henrietta KIRBY cc: [phone] TT: 05/18/2016 17:05:23 Confirmation # [id number] Dictation # [id number] tn
[2016-05-18] MEDS ORDERED: Peg-Electrolyte Oral Soln 4L (Golytely) PO ONE (20:22)
--- NOTE | 2016-05-18 21:01 | CP.PCM.PCO ---
Physician Communication Note - Physician Communication Note Physician Communication Note: Left Hernia Reduced(Sigmoid)=Starting bowel prep/ OK Colonoscopy
--- NOTE | 2016-05-19 06:37 | CP.PCM.PCO ---
Physician Communication Note - Physician Communication Note Physician Communication Note: L Hernia(Sigmoid)reduced-Pt refusing Golytely for colonoscopy
[2016-05-19 07:33] LABS: ADD MANUAL DIFF? NO
--- NOTE | 2016-05-19 07:33 | CARD ---
APPROVED REPORT EXAM: Two-dimensional and M-mode echocardiogram with Doppler and color Doppler. Other Information Quality : FairRhythm : INDICATION Edema, PRE-OP colon surgery. 2D DIMENSIONS Left Atrium (2D)3.7 (1.6-4.0cm)IVSd1.2 (0.7-1.1cm) LVDd3.3 (3.9-5.9cm)PWd1.2 (0.7-1.1cm) LVDs2.4 (2.5-4.0cm)FS (%) 21.8 % LVEF (%)55.0 (>50%) M-Mode DIMENSIONS Aortic Root3.20 (2.2-3.7cm)Aortic Cusp Exc.2.00 (1.5-2.0cm) Aortic Valve AoV Peak Wlfhdpqu781.0cm/s Mitral Valve MV E Quhljuqi78.5cm/sMV A Zmbzuipj74.5cm/sE/A ratio0.7 TDI E/Lateral E'0.0E/Medial E'0.0 Tricuspid Valve TR Peak [id number]/sRAP [id number] Peak Gr.32mmHg [id number] LEFT VENTRICLE The left ventricle is normal size. There is normal left ventricular wall thickness. The left ventricular function is normal. The left ventricular ejection fraction is in the low normal range. There is normal LV segmental wall motion. RIGHT VENTRICLE The right ventricle is normal size. ATRIA The left atrium size is normal. The right atrium size is normal. The interatrial septum is intact with no evidence for an atrial septal defect. AORTIC VALVE The aortic valve is normal in structure. MITRAL VALVE The mitral valve is normal in structure. Mitral regurgitation is trace. TRICUSPID VALVE The tricuspid valve is normal in structure. There is trace tricuspid regurgitation. PULMONIC VALVE The pulmonic valve is not well visualized. GREAT VESSELS The aortic root is normal in size. PERICARDIAL EFFUSION There is no pericardial effusion. <Conclusion> The left ventricle is normal size. There is normal left ventricular wall thickness. The left ventricular function is normal. The left ventricular ejection fraction is in the low normal range.
[2016-05-19 07:51] LABS: ALB/GLOB RATIO 0.9 (1.1-1.8); ALKALINE PHOSPHATASE 77 U/L (38-133); ALT/SGPT 18 U/L (7-56); AST/SGOT 32 U/L (15-59); BILIRUBIN,TOTAL 0.4 mg/dL (0.2-1.3); BLOOD UREA NITROGEN 6 mg/dL (7-21); CALCIUM 8.9 mg/dL (8.4-10.5); CARBON DIOXIDE 27 mmol/L (21-33); CHLORIDE 106 mmol/L (98-107); GFR AFRICAN-AMERICAN > 60; GLUCOSE,RANDOM 94 mg/dL (70-110); POTASSIUM 4.3 mmol/L (3.6-5.0); SODIUM 142 mmol/L (132-148)
[2016-05-19 08:04] LABS: BASO # 0.03 K/mm3 (0.0-2.0); BASO % 0.3 % (0.0-3.0); EOS % 8.8 % (1.5-5.0); GRAN # 6.56 (1.4-6.5); GRAN % 60.4 % (50.0-68.0); HEMATOCRIT 34.5 % (42.0-52.0); LYMPH # 1.7 (1.2-3.4); LYMPH % 15.7 % (22.0-35.0); MEAN CELL VOLUME 80.8 fL (80.0-105.0); MEAN CORPUSCULAR HEMOGLOBIN 24.6 pg (25.0-35.0); MEAN CORPUSCULAR HGB CONC 30.4 g/dl (31.0-37.0); MEAN PLATELET VOLUME 10.6 fl (7.0-11.0); MONO # 1.6 (0.1-0.6); MONO % 14.8 % (1.0-6.0); PLATELET COUNT 378 10^3/uL (120.0-450.0); RED CELL DISTRIBUTION WIDTH 16.6 % (11.5-14.5); WHITE BLOOD COUNT 10.9 10^3/ul (4.5-11.0)
[2016-05-19] MEDS: Tmp-Smz 400 mg-80 mg SS Tab PO SCH ×2 (09:54→21:54)
--- NOTE | 2016-05-19 10:19 | PN ---
DATE: 05/18/2016 This patient was seen and evaluated earlier during the rounds. This 85-year-old patient underwent CAT scan to evaluate iron deficiency anemia. The patient has a la rge inguinal hernia with a loop of the sigmoid colon in that preventing full colonoscopy to be comple edd. The patient subsequently had a CAT scan done, which showed abnormalities of the ileocecal area, rule out a mass lesion, rule out carcinoma. The patient is admitted for further evaluation. The pa yaneth is tolerating the liquid diet. He does have still large hernia present on examination. RECOMMENDATIONS: If the patient's hernia could be reduced completely, then we can reattempt a colono scopy. Otherwise, the patient needs surgical intervention as such. Will discuss with the surgical t eam again regarding this. Thank you very much for allowing me to participate in the care of the patient. Ann Luna MD cc: [phone] TT: 05/19/2016 10:18:08 Confirmation # [id number] Dictation # [id number] en
--- NOTE | 2016-05-19 12:08 | CP.PCM.PN ---
<JamiejohnAlbert rangel - Last Filed: 05/19/16 12:04> Subjective - Date & Time of Evaluation Date of Evaluation: 05/19/16 Time of Evaluation: 12:05 - Subjective Subjective: Surgery: Dr. Estrada covering for Dr. Peterson Pt seen and examined. Poor historian 04/20 MR. Per nursing no acute events overnight. Pt L side hernia was reduced yesterday. Would like GI to reattempt colonoscopy prior to OR. Pt currently refusing Go-Lytely Objective - Vital Signs/Intake and Output Vital Signs (last 24 hours): Temp Pulse Resp BP Pulse Ox 97.7 F 94 H 20 122/61 94 L 05/19/16 07:54 05/19/16 07:54 05/19/16 07:54 05/19/16 07:54 05/19/16 07:54 Intake and Output: 05/19/16 05/19/16 06:59 18:59 Intake Total 480 Balance 480 - Medications Medications: Current Medications Acetaminophen (Tylenol 325mg Tab) 650 mg PO Q4H PRN PRN Reason: FEVER, PAIN Docusate Sodium (Colace) 100 mg PO BID [facility] Last Admin: 05/19/16 09:53 Dose: 100 mg Famotidine (Pepcid) 20 mg IVP DAILY [facility] Last Admin: 05/19/16 09:54 Dose: 20 mg Ferrous Sulfate (Feosol) 324 mg PO DAILY [facility] Last Admin: 05/19/16 09:54 Dose: 324 mg Dextrose/Sodium Chloride (Dextrose 5%/0.45% Ns 1000 Ml) 1,000 mls @ 80 mls/hr IV .[id number] [facility] Last Admin: 05/18/16 18:03 Dose: 80 mls/hr Lorazepam (Ativan) 0.5 mg IVP Q6H PRN; Protocol PRN Reason: Anxiety Last Admin: 05/18/16 22:09 Dose: 0.5 mg Trimethoprim/Sulfamethoxazole (Bactrim Ss Tab) 1 tab PO Q12 SHARIF PRN Reason: Protocol Last Admin: 05/19/16 09:54 Dose: 1 tab - Labs Labs: 05/19/16 07:30 05/19/16 07:30 PT 11.9 Seconds (9.9-11.8) H 05/16/16 11:00 INR 1.10 (0.93-1.08) H 05/16/16 11:00 APTT 28.5 Seconds (23.7-30.8) 05/16/16 11:00 - Constitutional Appears: Non-toxic, No Acute Distress - Head Exam Head Exam: ATRAUMATIC, NORMOCEPHALIC - Eye Exam Eye Exam: EOMI - ENT Exam ENT Exam: Mucous Membranes Moist - Neck Exam Neck Exam: Full ROM - Respiratory Exam Respiratory Exam: NORMAL BREATHING PATTERN. absent: Accessory Muscle Use, Respiratory Distress - GI/Abdominal Exam GI & Abdominal Exam: Soft. absent: Distended, Firm, Guarding, Rigid, Tenderness - Rectal Exam Additional comments: Large R scrotal/inguinal hernia w. firm palpable mass in scrotum - Extremities Exam Extremities Exam: absent: Calf Tenderness, Pedal Edema - Neurological Exam Neurological Exam: Alert, Awake. absent: Oriented x3 Assessment and Plan - Assessment and Plan (Free Text) Assessment: 85M w. cecal mass -OR tentatively scheduled for this Sunday -Recommend GI reattempt colonoscopy -c/w current medical management -d/w attending Mily PGY2 <Fuentes Estrada - Last Filed: 05/26/16 09:39> Objective - Vital Signs/Intake and Output Vital Signs (last 24 hours): Temp Pulse Resp BP Pulse Ox 97.4 F L 84 28 H 132/73 96 05/26/16 04:00 05/26/16 06:00 05/26/16 06:00 05/26/16 06:00 05/26/16 06:00 Intake and Output: 05/26/16 05/26/16 06:59 18:59 Intake Total 1140 Balance 1140 - Medications Medications: Current Medications Acetaminophen (Tylenol 325mg Tab) 650 mg PO Q4H PRN PRN Reason: FEVER, PAIN Docusate Sodium (Colace) 100 mg PO BID [facility] Last Admin: 05/25/16 17:43 Dose: 100 mg Famotidine (Pepcid) 20 mg PO HS [facility] Last Admin: 05/25/16 21:34 Dose: 20 mg Ferrous Sulfate (Feosol) 324 mg PO DAILY [facility] Last Admin: 05/25/16 09:55 Dose: 324 mg Heparin Sodium (Porcine) (Heparin) 5,000 units SC 0100,1300 [facility] PRN Reason: Protocol Last Admin: 05/26/16 01:00 Dose: Not Given Potassium Chloride 20 meq/ (Dextrose/Sodium Chloride) 1,010 mls @ 70 mls/hr IV .[id number] [facility] Last Admin: 05/26/16 01:30 Dose: 70 mls/hr Metronidazole (Flagyl) 100 mls @ 100 mls/hr IVPB Q8 [facility]AR[facility] PRN Reason: Protocol Last Admin: 05/26/16 05:33 Dose: 100 mls/hr Cefepime HCl (Maxipime 1gm) 100 mls @ 100 mls/hr IVPB Q12 SHARIF PRN Reason: Protocol Last Admin: 05/26/16 09:23 Dose: 100 mls/hr Acetaminophen (Ofirmev) 100 mls @ 400 mls/hr IVPB Q6H PRN PRN Reason: Fever >100.4 F Stop: 05/28/16 03:33 Lorazepam (Ativan) 0.5 mg IVP Q6H PRN; Protocol PRN Reason: Anxiety Last Admin: 05/26/16 09:31 Dose: 0.5 mg Morphine Sulfate (Morphine) 2 mg IVP Q4H PRN PRN Reason: Pain, moderate (4-7) Last Admin: 05/26/16 03:48 Dose: 2 mg Ondansetron HCl (Zofran Inj) 4 mg IVP Q4H PRN PRN Reason: Nausea/Vomiting Last Admin: 05/25/16 17:53 Dose: 4 mg Oxycodone/Acetaminophen (Percocet 5/325 Mg Tab) 1 tab PO Q6H PRN PRN Reason: Pain, severe (8-10) Stop: 05/28/16 09:48 Last Admin: 05/25/16 09:55 Dose: 1 tab Pantoprazole Sodium (Protonix Inj) 40 mg IVP DAILY [facility] Last Admin: 05/26/16 09:24 Dose: 40 mg - Labs Labs: 05/26/16 07:30 05/26/16 04:00 PT 11.9 Seconds (9.9-11.8) H 05/16/16 11:00 INR 1.10 (0.93-1.08) H 05/16/16 11:00 APTT 28.5 Seconds (23.7-30.8) 05/16/16 11:00 Assessment and Plan - Assessment and Plan (Free Text) Plan: Left Inguinal Hernia reduced(sigmoid) but GI cant do Colonoscopy Consultation done under my direct supervision Nakita Estrada MD FACS
--- NOTE | 2016-05-19 14:39 | PN ---
DATE: 05/19/2016 Seen and examined earlier today. The patient refused to drink the GoLYTELY. He is out of bed to the chair this morning. Denies nausea, vomiting, or abdominal pain. The patient was reported to have a bowel movement. No reports of any overt GI bleed. LABORATORY DATA: WBC is 10.9, H and H is 10.5 and 34.5, platelets of 378. Sodium 142, K 4.3, BUN 6, creatinine is 0.7. LFTs are within normal limits. CEA is 2.5. PHYSICAL EXAMINATION: HEENT: Sclerae are anicteric. NECK: Supple. CARDIAC: S1, S2. LUNGS: With decreased breath sounds, but no rales or wheeze. ABDOMEN: With bowel sounds, soft, nontender, positive inguinal hernia. NEUROLOGIC: He is awake and alert. Poor historian. ASSESSMENT: The patient with cecal mass and inguinal hernia that was reduced by surgery yesterday. The patient refused to drink GoLYTELY prep for a possible colonoscopy. He has history of iron deficiency anemia, history of dementia. PLAN: The patient refusing to drink bowel prep. Currently, he is on liquid diet. He is on IV fluids at 80 mL an hour. He is on stool softeners, Bactrim, getting iron supple and on Pepcid. Surgery recommending repeat colonoscopy. Currently, patient is refusing to drink bowel prep. Tentatively on schedule for OR on Sunday Seen and discussed with Dr. Martinez who is covering rounds. Henrietta KIRBY cc: [phone] TT: 05/19/2016 14:38:51 Confirmation # [id number] Dictation # [id number] jessica GOFF
--- NOTE | 2016-05-19 15:03 | PN ---
DATE: 05/19/2016 This 85-year-old male was examined at his bedside with his nurse, Gabriela Braun. The patient was seen earlier today by Dr. Fuentes Estrada who was covering for Dr. Alberto Peterson for surgery, and he commented that he was able to reduce his inguinal hernia. I have called the surgical technology instructor, Albert Minor, to further discuss this case and have told him to discuss with Dr. 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 It is my feeling that if the patient does not have cecal carcinoma and is not obstructed, perhaps nothing further should be done at this time. Of note, I did reach a cousin of the patient, Sagar Potter (phone number [phone]), and I had a very lengthy discussion with him regarding all of the above. The cousin states that the patient has no legal guardian but this is his only living family that could be tracked down, and I am not sure if he is even appropriate for any consents on this case. The patient has completed a 2D echocardiogram by Dr. Edi Ayers from cardiology, which reveals that his left ventricular function is in the low normal range and that his left ventricular wall thickness is normal, and left ventricular function appears normal as well. I do feel that the patient would be at an increased risk for any elective surgery and feel that it should only proceed if absolutely necessary. PHYSICAL EXAMINATION: VITAL SIGNS: Temperature is 97.7, respirations 20, pulse 94 and blood pressure is 122/61 with a pulse ox of 95% on room air. HEAD: Normocephalic, atraumatic. EYES: Show no icterus. EARS: Clear. THROAT: Noninjected. NECK: Supple. HEART: Regular S1, S2. LUNGS: Clear. ABDOMEN: Soft. EXTREMITIES: Show no edema. SKIN: Without rash. NEUROLOGIC: Intact. PSYCHOLOGICAL: Retarded. VASCULAR: Legs warm to touch. LABORATORY DATA: White count 10,900, hemoglobin 10.5, hematocrit 34.5, platelets 378,000. Sodium 142, K 4.3, chloride 106, bicarbonate 27, BUN 6, creatinine 0.7, random blood sugar is 94. All liver function testing is normal including bilirubin 0.4, AST 32, ALT 18 and alkaline phosphatase 77. PSA is normal at 1.5. CEA is normal at 2.5. 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 Luna for iron deficiency anemia, also with a urinary tract infection. PLAN: At present, as I discussed with Dr. Albert Minor, surgical technology instructor, is for surgery to further discuss with Dr. Luna a plan for a possible colonoscopy to further evaluate the purported cecal mass on his CAT scan as an outpatient. I would not giraldo to do any elective surgery in the absence of obstruction or possible cancer on this patient, given his advanced age and high risk for morbidity and mortality. Unfortunately, he has no guardian that can help in this decision and the patient remains challenged to make an informed consent on his own. He will be treated in a conservative and supportive way at present with medication including Bactrim 1 tablet b.i.d. for urinary tract infection, Colace 100 mg b.i.d., D5 0.45 saline at 80 mL per hour, Feosol 324 mg p.o. daily, Pepcid 20 mg IV daily and a liquid diet until determined differently by GI. Greater than 40 minutes was spent in the care, discussion of care, coordination of care for this significantly ill and challenged gentleman with multiple risks for morbidity and mortality, given his advanced age and deconditioned state. I favor a conservative compassionate course. Codi Pringle MD cc: [phone] TT: 05/19/2016 15:02:41 Confirmation # [id number] Dictation # [id number] [email or web address] GOFF
[2016-05-20] MEDS: Dextrose 5%/0.45% NS 1,000 ML IV SCH (09:50)
[2016-05-20] MEDS: Tmp-Smz 400 mg-80 mg SS Tab PO SCH ×2 (09:50→21:41)
--- NOTE | 2016-05-20 11:55 | PN ---
DATE: 05/20/[address] Luna, I am covering this weekend. SUBJECTIVE: The patient is lying in bed. He appears comfortable. He is known to have bilateral ing uinal hernias. The left hernia apparently was reduced, the right-sided inguinal hernia contains a se gment of bowel and is nonreducible. The patient has anemia as well as a recent CT scan showing an ab normal cecum with possible mass. The cecum; however, is incarcerated in the right scrotum. PHYSICAL EXAMINATION: VITAL SIGNS: Reveal temperature of 97.8, blood pressure 126/71, heart rate of 89. ABDOMEN: Soft, nontender. GENITOURINARY: He has an incarcerated hernia in the right side of his scrotum which is firm and hard . LABORATORY DATA: Reveal hemoglobin 10.5 from 05/19. No new laboratory data are available for this mor kaylee. IMPRESSION: An 85-year-old male with anemia, an abnormal CT scan showing possible mass in the cecum with cecum incarcerated in a right scrotal hernia. The patient has been refusing a bowel prep for co lonoscopy; however, I do not believe that the cecum can be reached due to its position in the right s crotum with a colonoscopy. RECOMMENDATIONS: To obtain consent from his power of tread builder for surgery for a surgical reduction o f right scrotal hernia and at the same time right hemicolectomy given the suspicion for cecal cancer. Dontae Martinez MD cc: [phone] TT: 05/20/2016 11:55:07 Confirmation # [id number] Dictation # [id number] kate
--- NOTE | 2016-05-20 14:18 | PN ---
DATE: 05/20/2016 This 85-year-old male remains hospitalized. He has bilateral inguinal hernias and a questionable cec al carcinoma on outpatient CAT scan. I have reviewed the [facility] who feels that the patient will not be able to have a colonoscopy to reach his cecum due to a non reducible right scrotal hernia that would make it impossible to be reached on colonoscopy. It is his opinion that a surgical reduction of the right scrotal hernia be performed and at the same time, a r ight hemicolectomy for suspicion of cecal cancer. How to prep this patient who is refusing a bowel p rep is an issue as well. PHYSICAL EXAMINATION: VITAL SIGNS: His temperature is 97.8, respirations 20, pulse 89, and blood pressure 126/71 with a pu lse ox of 97% on room air. HEAD: Normocephalic, atraumatic. EYES: No icterus. EARS: Clear. THROAT: Noninjected. NECK: Supple. HEART: S1, S2. LUNGS: Clear. ABDOMEN: Soft. EXTREMITIES: No edema. SKIN: Without rash. NEUROLOGIC: Intact. PSYCHOLOGICAL: Alert. VASCULAR: Legs warm to touch. LABORATORY DATA: White count 10,900, hemoglobin 10.5, hematocrit 34.5, platelets 378,000. Sodium 14 2, K 4.3, chloride 106, bicarb 27, BUN 6, creatinine 0.7, random blood sugar is 94. All liver functi on testing is normal including bilirubin 0.4, AST 32, ALT 18 and alk phos 77. CEA is normal at 2.8, prostate antigen is normal at 1.5. IMPRESSION: An 85-year-old man with mental retardation and an iron deficiency anemia with a possible cecal mass and a nonreducible right inguinal hernia that makes it impossible for evaluation of cecal mass by colonoscopy. I will discuss this case further with Dr. Luna. He will discuss with surg tye the best next step. The patient, at present, will continue on Pepcid 20 mg p.o. at bedtime, ferr ous sulfate 324 mg p.o. daily, Colace 100 mg b.i.d. and Bactrim 1 tablet p.o. b.i.d. as well. I have requested a repeat urine culture. The patient remains on fall precautions. He remains on a clear l iquid diet and anti-embolism stockings. An order for physical therapy for ambulation safety has been ordered. Overall prognosis is poor, but stable at present. Codi Pringle MD cc: [phone] TT: 05/20/2016 14:17:11 Confirmation # [id number] Dictation # [id number] tn
--- NOTE | 2016-05-20 17:34 | CP.PCM.PN ---
Subjective - Date & Time of Evaluation Date of Evaluation: 05/20/16 Time of Evaluation: 17:31 - Subjective Subjective: Surgery for Dr. Peterson Pt s&e. ALIX. Denies pain. Tolerating PO. Denies F/C/N/V/D. +BM. Objective - Vital Signs/Intake and Output Vital Signs (last 24 hours): Temp Pulse Resp BP Pulse Ox 97.8 F 89 20 126/71 97 05/20/16 08:00 05/20/16 08:00 05/20/16 08:00 05/20/16 08:00 05/20/16 08:00 Intake and Output: 05/20/16 05/20/16 06:59 18:59 Intake Total 240 1000 Output Total 250 300 Balance -10 700 - Medications Medications: Current Medications Acetaminophen (Tylenol 325mg Tab) 650 mg PO Q4H PRN PRN Reason: FEVER, PAIN Docusate Sodium (Colace) 100 mg PO BID [facility] Last Admin: 05/20/16 17:24 Dose: Not Given Famotidine (Pepcid) 20 mg PO HS [facility] Ferrous Sulfate (Feosol) 324 mg PO DAILY [facility] Last Admin: 05/20/16 09:51 Dose: 324 mg Lorazepam (Ativan) 0.5 mg IVP Q6H PRN; Protocol PRN Reason: Anxiety Last Admin: 05/18/16 22:09 Dose: 0.5 mg Trimethoprim/Sulfamethoxazole (Bactrim Ss Tab) 1 tab PO Q12 [facility] PRN Reason: Protocol Last Admin: 05/20/16 09:50 Dose: 1 tab - Labs Labs: 05/19/16 07:30 05/19/16 07:30 PT 11.9 Seconds (9.9-11.8) H 05/16/16 11:00 INR 1.10 (0.93-1.08) H 05/16/16 11:00 APTT 28.5 Seconds (23.7-30.8) 05/16/16 11:00 - Constitutional Appears: No Acute Distress - Head Exam Head Exam: ATRAUMATIC, NORMAL INSPECTION, NORMOCEPHALIC - Eye Exam Eye Exam: EOMI, Normal appearance, PERRL Pupil Exam: NORMAL ACCOMODATION, PERRL - ENT Exam ENT Exam: Mucous Membranes Moist, Normal Exam - Neck Exam Neck Exam: Full ROM, Normal Inspection. absent: Lymphadenopathy - Respiratory Exam Respiratory Exam: Clear to Ausculation Bilateral, NORMAL BREATHING PATTERN. absent: Accessory Muscle Use, Respiratory Distress - Cardiovascular Exam Cardiovascular Exam: REGULAR RHYTHM, +S1, +S2. absent: Murmur - GI/Abdominal Exam GI & Abdominal Exam: Soft. absent: Distended, Firm, Tenderness, Rebound - Exam Exam: absent: Testicular Tenderness Additional comments: large R inguinal hernia. NT. non-reducible. - Extremities Exam Extremities Exam: Full ROM. absent: Tenderness - Neurological Exam Neurological Exam: Alert, Awake. absent: Altered - Psychiatric Exam Psychiatric exam: Normal Mood - Skin Skin Exam: Dry, Intact, Normal Color, Warm Assessment and Plan - Assessment and Plan (Free Text) Assessment: 85M w. cecal mass and inguinal hernia -OR tentatively scheduled for this Sunday -c/w current medical management -d/w attending
--- NOTE | 2016-05-20 22:42 | CP.PCM.PCO ---
Physician Communication Note - Physician Communication Note Physician Communication Note: OR Mon:R colectomy-herniorraphy:Cyndi
--- NOTE | 2016-05-21 11:28 | CP.PCM.PN ---
Subjective - Date & Time of Evaluation Date of Evaluation: 05/21/16 Time of Evaluation: 08:00 - Subjective Subjective: Surgery: Dr. Peterson Pt seen and examined. No acute events overnight. Pt denies any complaints at this time. Due to hx of MR pt is unaware of his health issues and current problem he is admitted for. Objective - Vital Signs/Intake and Output Vital Signs (last 24 hours): Temp Pulse Resp BP Pulse Ox 97.4 F L 84 18 118/68 94 L 05/21/16 07:30 05/21/16 07:30 05/21/16 07:30 05/21/16 07:30 05/21/16 07:30 - Medications Medications: Current Medications Acetaminophen (Tylenol 325mg Tab) 650 mg PO Q4H PRN PRN Reason: FEVER, PAIN Docusate Sodium (Colace) 100 mg PO BID [facility] Last Admin: 05/21/16 09:59 Dose: 100 mg Erythromycin (Erythromycin) 500 mg PO Q4 [facility]AR[facility] PRN Reason: Protocol Stop: 05/21/16 20:01 Last Admin: 05/21/16 09:59 Dose: 500 mg Famotidine (Pepcid) 20 mg PO HS [facility] Last Admin: 05/20/16 21:42 Dose: 20 mg Ferrous Sulfate (Feosol) 324 mg PO DAILY [facility] Last Admin: 05/21/16 10:00 Dose: 324 mg Lorazepam (Ativan) 0.5 mg IVP Q6H PRN; Protocol PRN Reason: Anxiety Last Admin: 05/20/16 23:00 Dose: 0.5 mg Neomycin Sulfate (Neomycin Tab) 1,000 mg PO Q6 SHARIF Stop: 05/22/16 00:01 Last Admin: 05/21/16 05:50 Dose: 1,000 mg Trimethoprim/Sulfamethoxazole (Bactrim Ss Tab) 1 tab PO Q12 [facility]AR[facility] PRN Reason: Protocol Last Admin: 05/20/16 21:41 Dose: 1 tab - Labs Labs: 05/19/16 07:30 05/19/16 07:30 PT 11.9 Seconds (9.9-11.8) H 05/16/16 11:00 INR 1.10 (0.93-1.08) H 05/16/16 11:00 APTT 28.5 Seconds (23.7-30.8) 05/16/16 11:00 - Constitutional Appears: No Acute Distress - Eye Exam Eye Exam: Normal appearance - ENT Exam ENT Exam: Mucous Membranes Moist - Respiratory Exam Respiratory Exam: NORMAL BREATHING PATTERN - Cardiovascular Exam Cardiovascular Exam: RRR - GI/Abdominal Exam GI & Abdominal Exam: Soft. absent: Distended, Tenderness - Exam Additional comments: incarcerated R inguinal hernia - Neurological Exam Neurological Exam: Awake - Skin Skin Exam: Dry, Warm Assessment and Plan - Assessment and Plan (Free Text) Assessment: 85M with b/l inguinal hernias and incarcerated R inguinal hernia with cecum/mass Plan: - pt is tentatively scheduled for OR tomorrow - however he is unable to consent himself and attempts to reach out to the family have been futile - will discuss further with Dr. Peterson regarding this issue Miryam James, PGY-2 Surgery
[2016-05-21] MEDS: Tmp-Smz 400 mg-80 mg SS Tab PO SCH (11:40)
--- NOTE | 2016-05-21 17:37 | PN ---
DATE: 05/21/2016 This 85-year-old male was examined at his bedside. He was agitated earlier today and according to vt s nurse, Kim Valdez, she spoke with Dr. Alberto Peterson from surgery who did explain the surgic al procedure to his nephew, Sagar Gar, from whom he obtained permission and consent. The patient is currently on a clear liquid diet, and he was ordered to receive neomycin and erythromycin preoper atively. PHYSICAL EXAMINATION: VITAL SIGNS: Temperature 97.4, respirations 18, pulse 84, blood pressure 118/68, pulse ox 96% on latosha m air. HEAD: Normocephalic, atraumatic. EYES: No icterus. EARS: Clear. THROAT: Noninjected. NECK: Supple. HEART: S1, S2. LUNGS: Clear. ABDOMEN: Soft. EXTREMITIES: No edema. SKIN: Without rash. Scrotal area with bilateral inguinal hernias. VASCULAR: Legs warm to touch. PSYCHOLOGICAL: Anxious. NEUROLOGIC: Intact. LABORATORY DATA: White count 10,900, hemoglobin 10.5, hematocrit 34.5, platelets 378,000. PT/INR 1. 10, PTT 28.5. Sodium 142, K 4.3, chloride 106, bicarbonate 27, BUN 6, creatinine 0.7. Random blood sugar is 94. All liver function testing is normal including bilirubin 0.4, AST 32, ALT 18, and alk p hos 77. Repeat urine culture shows no growth. Blood cultures show no growth. IMPRESSION: An 85-year-old male with bilateral inguinal hernias, a nonreducible right inguinal herni a with a cecal mass that could not be reached on outpatient colonoscopy for which the patient is wilfred le scheduled for elective hernia repair and right hemicolectomy; also with iron deficiency anemia; men jane retardation and anxiety neurosis. I have reviewed this case in detail with his nephew since he h as no next of kin that is closer, no guardian and no power of sports attorney. Dr. Peterson has obtained con sent from the nephew. The patient will continue on Ativan 0.5 mg IV q. 6 hours p.r.n. agitation, Col barrington 100 mg p.o. b.i.d., ferrous sulfate 324 mg p.o. daily, Pepcid 20 mg p.o. at bedtime, clear liquid diet preop, fall precautions. He is scheduled n.p.o. after midnight. He is wearing anti-embolism s tockings, receiving physical therapy for ambulation safety. He remains an increased risk for surgery given his advanced age and comorbidities, and ultimate plan will be to manage the patient postop and hopefully return him to his skilled nursing care at the [facility] where he is a resident. His o verall prognosis remains poor but stable at present. Codi Pringle MD cc: [phone] TT: 05/21/2016 17:36:39 Confirmation # [id number] Dictation # [id number] mn
--- NOTE | 2016-05-21 18:58 | PN ---
DATE: 05/21/2016 The patient is seen on the floor. We are planning an operation tomorrow, however, have been unable to contact the family for treatment. He has a Demetri and Sagar listed as relatives. However, we are not able to get consent at this time. I feel very uncomfortable using him as the consent. The plan is to get a consent, as this is not an emergency, from the family if possible and if not, to proceed to get a power of claims attorney through the matzo forming machine operator in the hospital and the oil well cable tool driller. This will mean delaying the case. We will try to get it today though. Alberto Peterson MD cc: [phone] TT: 05/21/2016 18:57:02 en MTDD
[2016-05-22 06:45] LABS: HEMATOCRIT 35.1 % (42.0-52.0); MEAN CELL VOLUME 81.4 fL (80.0-105.0); MEAN CORPUSCULAR HEMOGLOBIN 24.1 pg (25.0-35.0); MEAN CORPUSCULAR HGB CONC 29.6 g/dl (31.0-37.0); MEAN PLATELET VOLUME 9.9 fl (7.0-11.0); RED CELL DISTRIBUTION WIDTH 15.7 % (11.5-14.5); WHITE BLOOD COUNT 11.3 10^3/ul (4.5-11.0)
[2016-05-22 07:03] LABS: BLOOD UREA NITROGEN 7 mg/dL (7-21); CALCIUM 8.8 mg/dL (8.4-10.5); CARBON DIOXIDE 29 mmol/L (21-33); CHLORIDE 104 mmol/L (98-107); GFR AFRICAN-AMERICAN > 60; GLUCOSE,RANDOM 99 mg/dL (70-110); POTASSIUM 4.4 mmol/L (3.6-5.0); SODIUM 140 mmol/L (132-148)
[2016-05-22] MEDS ORDERED: ePHEDrine 50 mg/ml Inj ONE (12:26)
[2016-05-22] MEDS ORDERED: Propofol 10 mg/ml Inj (20 ML) ONE (12:26)
[2016-05-22] MEDS ORDERED: Succinylcholine 200 mg/10 ml Inj IV ONE (12:26)
[2016-05-22] MEDS ORDERED: Phenylephrine 10 mg/ml Inj ONE (12:26)
[2016-05-22] MEDS ORDERED: Sevoflurane - Inhalation Anesthetic Liq (250 ml) ONE (12:36)
--- NOTE | 2016-05-22 13:09 | PN ---
DATE: 05/22/2016 This 85-year-old male is on schedule for surgical repair of incarcerated right inguinal hernia and a cecal mass. I have discussed this case in detail with Dr. Alberto Peterson from surgery today who has spoken with his next of kin, his nephew (Sagar Potter), and has obtained consent for his surgery fr om him. Dr. Peterson feels comfortable with this consent and both he and I have expressed to his neph ew that the patient remains at an increased surgical risks given his advanced age and comorbidities. PHYSICAL EXAMINATION: VITAL SIGNS: Temperature is 97, respirations 20, pulse 92 and blood pressure 114/75 with a pulse ox of 97% room air. HEAD: Normocephalic, atraumatic. EYES: No icterus. NECK: Supple. HEART: S1, S2. LUNGS: Clear. ABDOMEN: Soft. Right inguinal hernia remains nonreducible. EXTREMITIES: No edema. SKIN: Without rash. NEUROLOGIC: Intact. PSYCHOLOGICAL: Unchanged. VASCULAR: Warm to touch. LABORATORY DATA: Latest urine culture shows no growth. White count 11,300, hemoglobin 10.4, hemato crit 35.1, platelets 384,000. Sodium 140, K 4.4, chloride 104, bicarb 29, BUN 7, creatinine 0.8, ran dom blood sugar is 99. IMPRESSION AND PLAN: An 85-year-old male with an incarcerated right inguinal hernia, a CAT scan show ing a cecal mass, rule out carcinoma, iron deficiency anemia, in need of surgical repair. He remains at increased risk for surgical intervention. This has been discussed with the patient's family and next of kin. He will be continued postoperatively on Colace, iron, Pepcid and pain meds. He is bein g followed by GI, surgery, cardiology. Overall prognosis, though poor, is stable at present. Codi Pringle MD cc: [id number] TT: 05/22/2016 13:08:31 Confirmation # [id number] Dictation # [id number] mn
[2016-05-22] MEDS ORDERED: Bupivacaine 0.5% Inj(30mL) ONE (13:15)
[2016-05-22] MEDS ORDERED: Ampicillin/Sulbactam 3 gm Inj ONE (13:33)
[2016-05-22] MEDS ORDERED: Rocuronium 10 mg/ml (5 ml) ONE ×2 (13:38→14:33)
[2016-05-22] MEDS ORDERED: Neostigmine Methylsulfate 3mg/3ml Syringe IV ONE (14:46)
[2016-05-22] MEDS ORDERED: Naloxone 0.4 mg/ml Inj (Adult) ONE (15:17)
--- NOTE | 2016-05-22 15:28 | PCM.SURG1 ---
Surgeon's Initial Post Op Note - Surgeon's Notes Surgeon: Nicholas Manager User Interface: Mily PGY1, Abundarin Type of Anesthesia: General Endo, Local Pre-Operative Diagnosis: Cecal mass and B/L inguinal hernias Operative Findings: Cecal mass and large B/L inguinal hernias Post-Operative Diagnosis: same Operation Performed: exploratory laparotomy w. right hemicolectomy and primary anastomosis Specimen/Specimens Removed: right colon Estimated Blood Loss: EBL {In ML}: 25 Blood Products Given: N/A Drains Used: No Drains Post-Op Condition: Good Date of Surgery/Procedure: 05/22/16 Time of Surgery/Procedure: 15:28
[2016-05-22] MEDS ORDERED: Lactated Ringer's 1,000 ML IV SCH ×2 (15:45)
[2016-05-22] MEDS: HYDROmorphone 0.5 mg/0.5 ml ISec IVP PRN ×4 (15:45→17:15)
[2016-05-22] MEDS ORDERED: HYDROmorphone 0.5 mg/0.5 ml ISec ONE ×3 (16:15→17:14)
--- NOTE | 2016-05-22 17:53 | PN ---
DATE: 05/22/2016 SUBJECTIVE: Seen and examined at the bedside earlier today. He is n.p.o. awaiting to go to OR, markel ent with no new complaints. LABORATORY DATA: WBC 11.3, H and H is 10.4 and 35.1, platelets is 384. Sodium 140, K is 4.4, BUN 7, creatinine is 0.8. PHYSICAL EXAMINATION: VITAL SIGNS: Temperature was 97, blood pressure 114/75, pulse 103, respirations 20, 97 on room air. HEENT: Sclera is anicteric. NECK: Supple. CARDIAC: S1, S2. LUNGS: Decreased breath sounds, but no rales or wheeze. ABDOMEN: With bowel sounds, soft right inguinal hernia present, nonreducible. EXTREMITIES: No edema. NEUROLOGIC: Awake and alert. ASSESSMENT: This is an 85-year-old male with incarcerated right inguinal hernia, also had abnormal C AT scan showing a cecal mass. He also had iron deficiency anemia. PLAN: The patient is going for surgery today with Dr. Peterson for surgical repair of incarcerated ri ght inguinal hernia and cecal mass. Dr. Luna spoke with Dr. Pringle after review again of CT scan. Recommendations were given. Currently, patient is on Pepcid for GI prophylaxis. He is getting sto ol softeners and iron supplements as per surgery. The patient was seen and case discussed with Dr. Nakita cherry. Henrietta KIRBY cc: [id number] TT: 05/22/2016 17:53:03 Confirmation # [id number] Dictation # [id number] hn
[2016-05-22] MEDS: metroNIDAZOLE IV 500 mg/100 ml 100 ML IVPB SCH (21:48)
[2016-05-23] MEDS: HYDROmorphone 1 mg/ml ISec IVP PRN (04:27)
[2016-05-23] MEDS: metroNIDAZOLE IV 500 mg/100 ml 100 ML IVPB SCH (05:29)
[2016-05-23 07:08] LABS: BLOOD UREA NITROGEN 8 mg/dL (7-21); CALCIUM 7.8 mg/dL (8.4-10.5); CARBON DIOXIDE 26 mmol/L (21-33); CHLORIDE 107 mmol/L (98-107); GFR AFRICAN-AMERICAN > 60; GLUCOSE,RANDOM 102 mg/dL (70-110); POTASSIUM 4.1 mmol/L (3.6-5.0); SODIUM 141 mmol/L (132-148)
[2016-05-23 07:18] LABS: HEMATOCRIT 23.7 % (42.0-52.0)
--- NOTE | 2016-05-23 10:41 | PN ---
DATE: 05/22/2016 ADDENDUM This is an addendum to the GE report dictated by Henrietta Hurst NP. This patient was seen and evaluated earlier, discussed with Dr. Pringle and also with Dr. Peterson in [facility]. PHYSICAL EXAMINATION: Showed bilateral inguinal hernia. The concern is even though the left hernia could be reduced, the right hernia is ____ into the scrotu m. This patient clearly will need a surgical intervention. The patient was already scheduled for [facility] in the afternoon at the time of surgery. The patient was reevaluated at 10:00 a.m. on 7. Ann Luna MD cc: [id number] TT: 05/23/2016 10:40:11 Confirmation # [id number] Dictation # [id number] kate
--- NOTE | 2016-05-23 14:00 | CP.PCM.PN ---
Subjective - Date & Time of Evaluation Date of Evaluation: 05/23/16 Time of Evaluation: 13:54 - Subjective Subjective: Surgery: Dr. Peterson Pt seen and examined. Resting comfortably in bed. Pain controlled. Pt states that he is hungry. Denies N/V. No Flatus/BM. Objective - Vital Signs/Intake and Output Vital Signs (last 24 hours): Temp Pulse Resp BP Pulse Ox 97.8 F 109 H 18 130/62 91 L 05/23/16 13:06 05/23/16 13:06 05/23/16 13:06 05/23/16 13:06 05/23/16 08:00 Intake and Output: 05/23/16 05/23/16 06:59 18:59 Intake Total 1300 0 Output Total 150 Balance 1150 0 - Medications Medications: Current Medications Acetaminophen (Tylenol 325mg Tab) 650 mg PO Q4H PRN PRN Reason: FEVER, PAIN Docusate Sodium (Colace) 100 mg PO BID [facility] Last Admin: 05/23/16 12:14 Dose: 100 mg Famotidine (Pepcid) 20 mg PO HS [facility] Last Admin: 05/22/16 21:49 Dose: Not Given Ferrous Sulfate (Feosol) 324 mg PO DAILY [facility] Last Admin: 05/23/16 12:14 Dose: 324 mg Heparin Sodium (Porcine) (Heparin) 5,000 units SC 0100,1300 SHARIF PRN Reason: Protocol Last Admin: 05/23/16 13:15 Dose: 5,000 units Hydromorphone HCl (Dilaudid) 1 mg IVP Q4H PRN PRN Reason: Pain, moderate (4-7) Last Admin: 05/23/16 04:27 Dose: 1 mg Potassium Chloride 20 meq/ (Dextrose/Sodium Chloride) 1,010 mls @ 70 mls/hr IV .[id number] [facility] Lorazepam (Ativan) 0.5 mg IVP Q6H PRN; Protocol PRN Reason: Anxiety Last Admin: 05/22/16 01:06 Dose: 0.5 mg Ondansetron HCl (Zofran Inj) 4 mg IVP Q4H PRN PRN Reason: Nausea/Vomiting - Labs Labs: 05/23/16 06:30 05/23/16 06:30 PT 11.9 Seconds (9.9-11.8) H 05/16/16 11:00 INR 1.10 (0.93-1.08) H 05/16/16 11:00 APTT 28.5 Seconds (23.7-30.8) 05/16/16 11:00 - Constitutional Appears: Non-toxic, No Acute Distress - Head Exam Head Exam: ATRAUMATIC, NORMOCEPHALIC - Eye Exam Eye Exam: EOMI. absent: Scleral icterus - ENT Exam ENT Exam: Mucous Membranes Moist - Neck Exam Neck Exam: Full ROM - Respiratory Exam Respiratory Exam: NORMAL BREATHING PATTERN. absent: Accessory Muscle Use, Respiratory Distress - GI/Abdominal Exam GI & Abdominal Exam: Soft, Tenderness (mild nuno-incisional ). absent: Distended, Firm, Guarding, Rigid, Rebound - Extremities Exam Extremities Exam: absent: Calf Tenderness, Pedal Edema - Neurological Exam Neurological Exam: Alert, Awake. absent: Oriented x3 - Psychiatric Exam Psychiatric exam: Normal Affect, Normal Mood - Skin Skin Exam: Dry, Normal Color, Warm Assessment and Plan - Assessment and Plan (Free Text) Assessment: 85M w. B/L inguinal hernias and cecal mass, s/p ex-lap w. R hemicolectomy, POD#1 -D/C Gleason -Start CLD, ADAT -Hgb 7.1, receiving PRBCs -OOB to chair -Encourage IS use -GI/DVT prophylaxis -d/w attending Amadeoitis PGY2
--- NOTE | 2016-05-23 14:24 | PN ---
DATE: 05/23/2016 Seen and examined at the bedside earlier today. The patient is postop day #1. He is status post exploratory laparotomy with reduction of the right inguinal hernia and a right hemicolectomy. The patient does have some postop pain, but is not in any acute distress. No reports of nausea, vomiting, fever or chills, shortness of breath or chest pain. He has not passed any flatus. No bowel movement. VITAL SIGNS: Temperature is 98.9, blood pressure is 111/61, respiratory rate is 20. LABORATORY DATA: His hemoglobin is 7.1, hematocrit is 23.7. Sodium 141, K is 4.1, BUN 8, creatinine is 0.7. PHYSICAL EXAMINATION: HEENT: Sclerae are anicteric. NECK: Supple. CARDIAC: S1, S2. LUNGS: Clear. ABDOMEN: He does have bowel sounds. Abdominal binder with surgical dressing that looks dry and intact. ASSESSMENT/PLAN: This is an 85-year-old male with incarcerated right inguinal hernia with history of iron deficiency anemia and abnormal CT scan reporting a cecal mass. The patient is status post exploratory laparotomy and right hemicolectomy. The patient is also going to be typed and crossed. He is on iron, on Pepcid. Continue stool softener. He is on IV fluids and as per surgery, he is going to start on clear liquid. Yesterday, the patient received 2 bags of Ancef. The last dose was today at 6:00 a.m. as per surgery. The patient was seen and case discussed with Dr. Luna. Henrietta KIRBY cc: [id number] TT: 05/23/2016 14:24:14 Confirmation # [id number] Dictation # [id number] jessica MTDChely
--- NOTE | 2016-05-23 14:40 | PN ---
DATE: 05/23/2016 This 85-year-old male is status post abdominal surgery where he had exploratory laparotomy, reduction of right inguinal hernia and a right hemicolectomy by Dr. Peterson who commented that the patient did have a cecal mass. This was excised. The patient is now day 1 postoperative. He was noted to be severely anemic this morning, part of which is felt to be dilutional secondary to IV fluids, but he is receiving a blood cell transfusion because of hemoglobin of 7.1 and hematocrit of 23.7. PHYSICAL EXAMINATION: VITAL SIGNS: Temperature was 98.9, respirations 20, pulse 105, blood pressure 111/61. HEAD: Normocephalic, atraumatic. EYES: Show no icterus. NECK: Supple. HEART: S1, S2. LUNGS: Clear. ABDOMEN: Soft. There is a surgical dressing in place. EXTREMITIES: Show no clubbing, no cyanosis, no edema. SKIN: Without rash. NEUROLOGIC: Intact. PSYCHOLOGICAL: Alert. VASCULAR: Legs warm to touch. LABORATORY DATA: Hemoglobin 7.1, hematocrit 23.7. Sodium 141, K 4.1, chloride 107, bicarbonate 26, BUN 8, creatinine 0.7, random blood sugar is 102. 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 PLAN: Transfuse 2 units of packed red blood cells. The patient continues on 0.45 saline at 70 mL per hour. He is receiving heparin 5000 units subQ b.i.d., Pepcid 20 mg p.o. at bedtime. He has been instructed on incentive spirometry. He has been advanced to a clear liquid diet by Dr. Peterson from surgery. He is wearing anti-embolism/SCD stockings. He remains on fall precautions and will have basic metabolic panel and hemoglobin, hematocrit in the a.m. Once pathology report is released, I will discuss in consultation with Dr. Barillas from oncology, if any further steps are necessary. All of this was discussed in detail and in person with Dr. Alberto ePterson from surgery. Greater than 40 minutes was spent in the care, coordination of care and discussion of care regarding this patient with Dr. Luna from GI, Dr. Peterson from surgery, nursing staff, and patient at bedside. Codi Pringle MD cc: [phone] TT: 05/23/2016 14:39:19 Confirmation # [id number] Dictation # [id number] mn MTDD
[2016-05-23] MEDS ORDERED: Potassium Chloride 20 MEQ in Dextrose 5%/0.45% NS 1,000 ML IV SCH (15:45)
[2016-05-23] MEDS: Potassium Chloride 20 MEQ in Dextrose 5%/0.45% NS 1,000 ML IV SCH (20:16)
--- NOTE | 2016-05-24 01:28 | PN ---
DATE: 05/23/2016 SUBJECTIVE: This patient was seen and evaluated earlier. This is an addendum to the GI progress rep ort dictated by Henrietta Hurst NP. The patient is status post hernia repair done and status post right hemicolectomy. PHYSICAL EXAMINATION: ABDOMEN: Soft. Surgical dressing present. Labs reviewed. IMPRESSION: This is an 85-year-old patient with post-op as per surgery and follow up of the pa thology. Thank you very much for allowing us to participate in the care of the patient. Ann Luna MD cc: [phone] TT: 05/24/2016 01:28:22 Confirmation # [id number] Dictation # [id number] hn
[2016-05-24 07:46] LABS: HEMATOCRIT 28.9 % (42.0-52.0); MEAN CORPUSCULAR HEMOGLOBIN 26.4 pg (25.0-35.0); MEAN CORPUSCULAR HGB CONC 31.8 g/dl (31.0-37.0); MEAN PLATELET VOLUME 10.5 fl (7.0-11.0); PLATELET COUNT 274 10^3/uL (120.0-450.0); RED CELL DISTRIBUTION WIDTH 15.7 % (11.5-14.5); WHITE BLOOD COUNT 21.3 10^3/ul (4.5-11.0)
[2016-05-24 07:48] LABS: ADD MANUAL DIFF? YES
[2016-05-24 08:03] LABS: BLOOD UREA NITROGEN 7 mg/dL (7-21); CARBON DIOXIDE 29 mmol/L (21-33); CHLORIDE 103 mmol/L (98-107); GFR AFRICAN-AMERICAN > 60; GLUCOSE,RANDOM 132 mg/dL (70-110); POTASSIUM 3.9 mmol/L (3.6-5.0); SODIUM 136 mmol/L (132-148)
[2016-05-24 08:46] LABS: ANISOCYTOSIS 1+; BAND 2 % (0-2); HYPOCHROMIA 1+; MICROCYTOSIS 1+; NEUTROPHIL 88 % (50.0-70.0); OVALOCYTES SLIGHT; PLATELET ESTIMATE NORMAL (NORMAL); POLYCHROMASIA SLIGHT
--- NOTE | 2016-05-24 08:58 | OP ---
PROCEDURE DATE: 05/22/2016 PREOPERATIVE DIAGNOSIS: Mass in the right scrotum that is not reducible. POSTOPERATIVE DIAGNOSIS: Mass in the right scrotum that is not reducible, almost certainly a cancer. OPERATION PERFORMED: Exploratory laparotomy, reduction of the hernia and right hemicolectomy. SURGEON: Dr. Peterson. CONSTRUCTION CRAFT LABORER: Dr. Minor. DRAINS: None. DESCRIPTION OF PROCEDURE: The patient is seen in the operating room and successful timeout is obtain ed. After the abdomen was prepped and draped, Gleason placed and an NG tube. The patient was identifi ed by name, number, procedure, laterality, my consent, his name, number and wrist band. Perioperativ e antibiotics according to the SKIP protocol. A lower midline incision was made. The scrotum having been prepped into the wound facilitated reduction of the mass. Liver was unremarkable. The abdomen was entered, crossing the midline during the opening. However, the abdomen was entered without issu e. The right colon was stuck into the scrotal defect and it required bimanual reduction, starting on the distal small bowel and the mass became mobile when we reduced the proximal colon and this allowe d the mass to squeeze out. The mass was obviously tumor. It was brought up. The line of Toldt was divided and the entire mass became very mobile. The mesentery was serially scored and taken with the LigaSure and the SLICK proximally and distally on the small bowel allowed removal of the entire right colon. The transverse colon was lined up with the distal ileum with silk. The mesentery was closed with 3-0 Vicryl and the GIAs were run in and fired through the edge of the intestines. It was closed with an Allis and a TA 60. It was reinforced with silk. This was flopped back. I elected not to d eal with the hernia at this time. The abdomen was closed with a running PDS above and below, tied in the middle. The incision was closed with fabiana in a subcuticular stitch. The patient was taken t o recovery room in good condition after sponge and needle count was declared correct. Alberto Peterson MD cc: [phone] TT: 05/23/2016 15:33:34 tn
[2016-05-24] MEDS: HYDROmorphone 1 mg/ml ISec IVP PRN ×2 (09:31→22:44)
[2016-05-24] MEDS: metroNIDAZOLE IV 500 mg/100 ml 100 ML IVPB SCH ×3 (09:41→22:35)
[2016-05-24] MEDS ORDERED: Ciprofloxacin 200mg/100ml D5W 100 ML IVPB SCH (10:00)
--- NOTE | 2016-05-24 10:36 | RAD ---
HISTORY: leukocystosis COMPARISON: No prior. FINDINGS: LUNGS: There is a small amount of free air beneath the right hemidiaphragm. I checked with the patient's nurse. The patient had abdominal surgery 2 days ago which explains the free air. PLEURA: No significant pleural effusion identified, no pneumothorax apparent. CARDIOVASCULAR: Normal. OSSEOUS STRUCTURES: No significant abnormalities. VISUALIZED UPPER ABDOMEN: Normal. OTHER FINDINGS: None. IMPRESSION: No active disease. Small amount of postoperative free air beneath the right hemidiaphragm. No evidence of pneumonia
[2016-05-24 11:24] LABS: URINE BILIRUBIN NEGATIVE (NEGATIVE); URINE BLOOD NEGATIVE (NEGATIVE); URINE GLUCOSE (UA) NEGATIVE (NEGATIVE); URINE KETONE NEGATIVE (NEGATIVE); URINE LEUKOCYTE ESTERASE NEGATIVE Leu/uL (NEGATIVE); URINE PROTEIN NEGATIVE mg/dL (<30 mg/dL); URINE UROBILINOGEN 0.2 E.U./dL (<1 E.U./dL)
[2016-05-24 11:27] LABS: URINE APPEARANCE CLEAR (CLEAR); URINE COLOR YELLOW (YELLOW)
--- NOTE | 2016-05-24 12:22 | PN ---
DATE: 05/24/2016 This 85-year-old male was examined at his bedside. He was out of bed to chair, wearing his abdominal binder and anti-embolism stockings. He had his incentive spirometer at his side. He is on a clear liquid diet. He denies any fever, chills, cough, dysuria, but was noted to have a postoperative white blood cell count of 21,300. He did undergo a chest x-ray that was reviewed by Dr. Rosario from radiology and shows no evidence of pneumonia, and no active disease. A small amount of postoperative free air being at the right hemidiaphragm was noted and expected. PHYSICAL EXAMINATION: VITAL SIGNS: Temperature is 97.7, respirations 22, pulse 98, blood pressure 140 /78 with a pulse ox of 95% on room air. HEAD: Normocephalic, atraumatic. EYES: No icterus. NECK: Supple. HEART: S1, S2. LUNGS: Clear. ABDOMEN: Without rebound, without guarding. Decreased breath sounds present. EXTREMITIES: No clubbing, no cyanosis, no edema. SKIN: Without rash. NEUROLOGIC: Unchanged. PSYCHOLOGICAL: Alert. VASCULAR: Legs warm to touch. LABORATORY DATA: White count 21,300, hemoglobin 9.2, hematocrit 28.9, platelets 274,000. Sodium 136, K 3.9, chloride 103, bicarb 29, BUN 7, creatinine 0.6, random blood sugar 132. Urinalysis unremarkable. IMPRESSION: An 85-year-old male status post right hemicolectomy for cecal mass and incarcerated right inguinal hernia with postoperative anemia, leukocytosis, iron deficiency anemia, chronic mental retardation. The patient has received blood cell transfusion. PLAN: At present is to continue Colace 100 mg b.i.d., D5.45 saline at 70 mL per hour, Feosol 324 mg p.o. daily, heparin 5000 units subQ b.i.d., Pepcid 20 mg p.o. at bedtime. Procalcitonin level has been drawn. Blood and urine cultures have been sent. Repeat CBC has been ordered for the a.m. I have discussed this case in detail with Dr. Fuentes Victoria from infectious disease who will evaluate the patient and determine antibiotic and duration. He has been instructed to incentive spirometry. His diet has been adjusted by surgery. He remains on fall precautions, and will have an order for physical therapy for ambulation safety. Pathology reports are pending on his cecal mass. Once this is determined, if any cancer is present, an oncological consultation will be obtained. The patient's overall prognosis remains poor, but stable at present. Greater than 40 minutes was spent in the care, coordination of care, review of care, and discussion of care for this patient today with nurse, the patient, and co-consultants today. Codi Pringle MD cc: [phone] TT: 05/24/2016 12:21:56 Confirmation # [id number] Dictation # [id number] jn MTDD
--- NOTE | 2016-05-24 12:51 | PN ---
DATE: 05/24/2016 Seen and examined at the bedside earlier today, postop day #2. The patient has no complaints of nausea, vomiting. Does have abdominal discomfort, but is in no acute distress. He is status post 2 units of packed RBC. Reported to have small BM per nursing staff. No report of overt GI bleed. VITAL SIGNS: Temperature is 97.7, blood pressure 140/78, pulse rate 98, respirations 22, and 95% on room air. LABORATORY DATA: WBC is 21.3, H and H is 9.2 and 28.9, platelets are 274. His sodium is 136, K is 3.9, BUN 7, creatinine is 0.6. The patient went for a chest x-ray, no active disease. Small amount postop free air beneath the right hemidiaphragm. No evidence of pneumonia. PHYSICAL EXAMINATION: HEENT: Sclera is anicteric. NECK: Supple. CARDIAC: S1, S2. LUNGS: Clear. ABDOMEN: He does have bowel sounds. A surgical dressing is in place with abdominal binder. Not much tenderness noted, although patient is a poor historian. EXTREMITIES: No edema. NEUROLOGIC: Awake, alert. ASSESSMENT AND PLAN: This is an 85-year-old male with history of iron deficiency anemia, incarcerated right inguinal hernia and abnormal CT scan reporting cecal mass, he is status post exploratory laparotomy with right hemicolectomy. The patient is status post 2 units of packed RBCs. His diet was advanced to a regular diet. He remains on antibiotics, Flagyl. He is also on iron and stool softeners as well as GI prophylaxis with Pepcid and gets Dilaudid for pain. He is on deep venous thrombosis prophylaxis, heparin SQ, incentive spirometer. He is noted to have leukocytosis. His blood culture and urine culture is pending. Follow up surgical pathology. Seen and examined with Dr. Luna, who is covering rounds. Henrietta KIRBY cc: [phone] TT: 05/24/2016 12:50:48 Confirmation # [id number] Dictation # [id number] cortez GOFF
[2016-05-24] MEDS: Potassium Chloride 20 MEQ in Dextrose 5%/0.45% NS 1,000 ML IV SCH ×2 (15:35→23:12)
--- NOTE | 2016-05-24 15:41 | CP.PCM.PN ---
Subjective - Date & Time of Evaluation Date of Evaluation: 05/24/16 Time of Evaluation: 08:30 - Subjective Subjective: General Surgery Dr. Peterson Pt S&E @bedside. 1 episode vomiting early this AM w/ bloody BM. pt has developmental delay - unable to answer all questions appropriately. denies abd pain. unsure if passing gas. denied vomiting though it is recorded in the nursing notes. unable to use incentive spirometer. Objective - Vital Signs/Intake and Output Vital Signs (last 24 hours): Temp Pulse Resp BP Pulse Ox 97.7 F 98 H 22 140/78 95 05/24/16 08:14 05/24/16 08:14 05/24/16 08:14 05/24/16 08:14 05/24/16 08:14 Intake and Output: 05/24/16 05/24/16 06:59 18:59 Intake Total 865 760 Output Total 200 Balance 665 760 - Medications Medications: Current Medications Acetaminophen (Tylenol 325mg Tab) 650 mg PO Q4H PRN PRN Reason: FEVER, PAIN Docusate Sodium (Colace) 100 mg PO BID [facility] Last Admin: 05/24/16 09:30 Dose: 100 mg Famotidine (Pepcid) 20 mg PO HS [facility] Last Admin: 05/23/16 21:59 Dose: 20 mg Ferrous Sulfate (Feosol) 324 mg PO DAILY [facility] Last Admin: 05/24/16 09:31 Dose: 324 mg Heparin Sodium (Porcine) (Heparin) 5,000 units SC 0100,1300 SHARIF PRN Reason: Protocol Last Admin: 05/24/16 14:30 Dose: 5,000 units Hydromorphone HCl (Dilaudid) 1 mg IVP Q4H PRN PRN Reason: Pain, moderate (4-7) Last Admin: 05/24/16 09:31 Dose: 1 mg Potassium Chloride 20 meq/ (Dextrose/Sodium Chloride) 1,010 mls @ 70 mls/hr IV .[id number] [facility] Last Admin: 05/23/16 20:16 Dose: 70 mls/hr Metronidazole (Flagyl) 100 mls @ 100 mls/hr IVPB Q8 SHARIF PRN Reason: Protocol Last Admin: 05/24/16 14:26 Dose: 100 mls/hr Lorazepam (Ativan) 0.5 mg IVP Q6H PRN; Protocol PRN Reason: Anxiety Last Admin: 05/22/16 01:06 Dose: 0.5 mg Ondansetron HCl (Zofran Inj) 4 mg IVP Q4H PRN PRN Reason: Nausea/Vomiting - Labs Labs: 05/24/16 06:55 05/24/16 06:55 Laboratory Tests 05/24/16 05/24/16 06:55 11:09 Calcium 8.0 L Urine Color Yellow Urine Appearance Clear Urine pH 8.0 Ur Specific [place] 1.020 Urine Protein Negative Urine Glucose (UA) Negative Urine Ketones Negative Urine Blood Negative Urine Nitrate Negative Urine Bilirubin Negative Urine Urobilinogen 0.2 Ur Leukocyte Esterase Negative - Constitutional Appears: Non-toxic, No Acute Distress - Head Exam Head Exam: NORMAL INSPECTION - Eye Exam Eye Exam: Normal appearance - ENT Exam ENT Exam: Mucous Membranes Moist - Respiratory Exam Respiratory Exam: NORMAL BREATHING PATTERN. absent: Accessory Muscle Use, Respiratory Distress - GI/Abdominal Exam GI & Abdominal Exam: Soft, Tenderness (RLQ). absent: Distended, Guarding, Rebound - Exam Exam: Scrotal Swelling External exam: Erythema (b/l inguinal hernia) - Neurological Exam Neurological Exam: Alert, Awake - Psychiatric Exam Psychiatric exam: Normal Affect, Normal Mood - Skin Skin Exam: Dry, Intact, Normal Color, Warm Assessment and Plan - Assessment and Plan (Free Text) Assessment: 85 y/o M w/ B/L inguinal hernias and cecal mass, POD#2 s/p ex-lap w/ R hemicolectomy - ADAT - chronic anemia - transfuse per primary - worsening leukocytosis - trend - cont abx - UA wnl - OOB to chair/Amb - Encourage IS use - GI/DVT prophylaxis Pt see and discussed w/ attending. Flor Holloway DO PGY1
--- NOTE | 2016-05-24 20:18 | CP.PCM.CON ---
History of Present Illness - History of Present Illness History of Present Illness: Infectious Disease Consultation: May 24, 2016 85 yo male with initial presentation for abdominal pain and abnormal CT scan sent from [facility] facility (I think [facility] [place]). 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 Currently the patient appears comfortable. He is unable to give any relevant information due to a severe developmental delay. Patient is currently post-operative day #2 and has been displaying increasing leukocytosis since the surgery. Patient himself is awake and alert and does not appear to be making any major complaints. PMHx: Iron deficiency anemia, Developmental delay, gastritis PSHx: none prior to the exploratory laparotomy on this hospitalization Allergies: NKDA Social Hx: no tobacco, EtOH, or illicit drug use. Shelter resident Active Medications Acetaminophen (Tylenol 325mg Tab) 650 mg PO Q4H PRN PRN Reason: FEVER, PAIN Docusate Sodium (Colace) 100 mg PO BID [facility] Last Admin: 05/24/16 17:38 Dose: 100 mg Famotidine (Pepcid) 20 mg PO HS [facility] Last Admin: 05/23/16 21:59 Dose: 20 mg Ferrous Sulfate (Feosol) 324 mg PO DAILY [facility] Last Admin: 05/24/16 09:31 Dose: 324 mg Heparin Sodium (Porcine) (Heparin) 5,000 units SC 0100,1300 SHARIF PRN Reason: Protocol Last Admin: 05/24/16 14:30 Dose: 5,000 units Hydromorphone HCl (Dilaudid) 1 mg IVP Q4H PRN PRN Reason: Pain, moderate (4-7) Last Admin: 05/24/16 09:31 Dose: 1 mg Potassium Chloride 20 meq/ (Dextrose/Sodium Chloride) 1,010 mls @ 70 mls/hr IV .[id number] [facility] Last Admin: 05/24/16 15:35 Dose: 70 mls/hr Metronidazole (Flagyl) 100 mls @ 100 mls/hr IVPB Q8 SHARIF PRN Reason: Protocol Last Admin: 05/24/16 14:26 Dose: 100 mls/hr Lorazepam (Ativan) 0.5 mg IVP Q6H PRN; Protocol PRN Reason: Anxiety Last Admin: 05/22/16 01:06 Dose: 0.5 mg Ondansetron HCl (Zofran Inj) 4 mg IVP Q4H PRN PRN Reason: Nausea/Vomiting Family Hx: Unable to obtain from the patient ROS: Unable to obtain from the patient Past Patient History - Past Social History Smoking Status: Former Smoker - CARDIAC Hx Pacemaker: No - PULMONARY Hx Respiratory Disorders: No - NEUROLOGICAL Hx Paralysis: No - HEENT Hx HEENT Problems: No - ENDOCRINE/METABOLIC Hx Endocrine Disorders: No - HEMATOLOGICAL/ONCOLOGICAL Hx Blood Transfusions: No Hx Blood Transfusion Reaction: No - INTEGUMENTARY Hx Dermatological Problems: No - MUSCULOSKELETAL/RHEUMATOLOGICAL Hx Musculoskeletal Disorders: No - GASTROINTESTINAL Hx Gastrointestinal Disorders: Yes (HERNIA) - GENITOURINARY/GYNECOLOGICAL Hx Genitourinary Disorders: Yes (ENLARGED PROSTATE) - PSYCHIATRIC Hx Substance Use: No - SURGICAL HISTORY Hx Surgeries: No - ANESTHESIA Hx Anesthesia Reactions: No Hx Malignant Hyperthermia: No Meds Allergies/Adverse Reactions: Allergies Allergy/AdvReac Type Severity Reaction Status Date / Time No Known Allergies Allergy Verified 05/16/16 17:12 - Medications Medications: Current Medications Acetaminophen (Tylenol 325mg Tab) 650 mg PO Q4H PRN PRN Reason: FEVER, PAIN Docusate Sodium (Colace) 100 mg PO BID [facility] Last Admin: 05/24/16 17:38 Dose: 100 mg Famotidine (Pepcid) 20 mg PO HS [facility] Last Admin: 05/23/16 21:59 Dose: 20 mg Ferrous Sulfate (Feosol) 324 mg PO DAILY [facility] Last Admin: 05/24/16 09:31 Dose: 324 mg Heparin Sodium (Porcine) (Heparin) 5,000 units SC 0100,1300 [facility] PRN Reason: Protocol Last Admin: 05/24/16 14:30 Dose: 5,000 units Hydromorphone HCl (Dilaudid) 1 mg IVP Q4H PRN PRN Reason: Pain, moderate (4-7) Last Admin: 05/24/16 09:31 Dose: 1 mg Potassium Chloride 20 meq/ (Dextrose/Sodium Chloride) 1,010 mls @ 70 mls/hr IV .[id number] [facility] Last Admin: 05/24/16 15:35 Dose: 70 mls/hr Metronidazole (Flagyl) 100 mls @ 100 mls/hr IVPB Q8 SHARIF PRN Reason: Protocol Last Admin: 03/08/17 14:26 Dose: 100 mls/hr Lorazepam (Ativan) 0.5 mg IVP Q6H PRN; Protocol PRN Reason: Anxiety Last Admin: 05/22/16 01:06 Dose: 0.5 mg Ondansetron HCl (Zofran Inj) 4 mg IVP Q4H PRN PRN Reason: Nausea/Vomiting Physical Exam - Constitutional Appears: Non-toxic, No Acute Distress, Confused, Chronically Ill - Head Exam Head Exam: ATRAUMATIC, NORMOCEPHALIC - Eye Exam Eye Exam: EOMI, PERRL Pupil Exam: NORMAL ACCOMODATION, PERRL - ENT Exam ENT Exam: Mucous Membranes Moist, Normal External Ear Exam, TM's Normal Bilaterally - Neck Exam Neck exam: Positive for: Full Rom, Normal Inspection - Respiratory Exam Respiratory Exam: Clear to Auscultation Bilateral, NORMAL BREATHING PATTERN. absent: Rales, Rhonchi, Wheezes - Cardiovascular Exam Cardiovascular Exam: REGULAR RHYTHM, RRR, +S1, +S2 - GI/Abdominal Exam Additional comments: abdominal binder in place. Recent exploratory laparotomy. He is not indicating any abdominal pain. - Extremities Exam Extremities exam: Positive for: full ROM, normal inspection - Neurological Exam Neurological exam: Alert, CN II-XII Intact Additional comments: mental retardation. Expresses what he wants to say. He doesn't necessarily answer questions given to him. Results - Vital Signs Recent Vital Signs: Last Vital Signs Temp 98 F 05/24/16 16:00 Pulse 95 H 05/24/16 16:00 Resp 21 05/24/16 16:00 BP 126/70 05/24/16 16:00 Pulse Ox 93 L 05/24/16 16:00 - Labs Result Diagrams: 05/24/16 06:55 05/24/16 06:55 Labs: Laboratory Results - last 24 hr 05/23/16 05/24/16 05/24/16 09:50 06:55 09:00 WBC 21.3 H D RBC 3.48 L Hgb 9.2 L Hct 28.9 L MCV 83.0 MCH 26.4 MCHC 31.8 RDW 15.7 H Plt Count 274 MPV 10.5 Neutrophils % (Manual) 88 H Band Neutrophils % 2 Lymphocytes % (Manual) 5 L Monocytes % (Manual) 5 Platelet Evaluation Normal Polychromasia Slight Hypochromasia 1+ Anisocytosis (manual) 1+ Microcytosis (manual) 1+ Ovalocytes Slight Sodium 136 Potassium 3.9 Chloride 103 Carbon Dioxide 29 Anion Gap 8 L BUN 7 Creatinine 0.6 Est GFR ( Amer) > 60 Est GFR (Non-Af Amer) > 60 Random Glucose 132 H Calcium 8.0 L Procalcitonin 0.10 L Urine Color Urine Appearance Urine pH Ur Specific [place] Urine Protein Urine Glucose (UA) Urine Ketones Urine Blood Urine Nitrate Urine Bilirubin Urine Urobilinogen Ur Leukocyte Esterase Crossmatch See Detail 05/24/16 11:09 WBC RBC Hgb Hct MCV MCH MCHC RDW Plt Count MPV Neutrophils % (Manual) Band Neutrophils % Lymphocytes % (Manual) Monocytes % (Manual) Platelet Evaluation Polychromasia Hypochromasia Anisocytosis (manual) Microcytosis (manual) Ovalocytes Sodium Potassium Chloride Carbon Dioxide Anion Gap BUN Creatinine Est GFR ( Amer) Est GFR (Non-Af Amer) Random Glucose Calcium Procalcitonin Urine Color Yellow Urine Appearance Clear Urine pH 8.0 Ur Specific [place] 1.020 Urine Protein Negative Urine Glucose (UA) Negative Urine Ketones Negative Urine Blood Negative Urine Nitrate Negative Urine Bilirubin Negative Urine Urobilinogen 0.2 Ur Leukocyte Esterase Negative Crossmatch Assessment & Plan - Assessment and Plan (Free Text) Assessment: 85 yo male with cecal mass and bilateral hernia had exploratory laparotomy with right hemicolectomy. The patient is unable to give any significant information when speaking with him. He is not complaining of pain. The patient had a sudden rise in his leukocytosis to 21.3. There is a mild left shift to the leukocytosis. Supportive care. Silva cultures sent. Had Proteus in urine culture over a week ago but more recent urine culture is negative for growth. Currently on Flagyl for antibiotic coverage. Will add Cefepime for now. Leukocytosis is more likely to be reactionary. Supportive care. Thank you for allowing me to participate in the care of the patient, we will follow with you.
[2016-05-24] MEDS: Cefepime 1gm in NS 100ml 100 ML IVPB SCH (22:35)
[2016-05-25] MEDS: HYDROmorphone 1 mg/ml ISec IVP PRN (03:52)
[2016-05-25] MEDS: metroNIDAZOLE IV 500 mg/100 ml 100 ML IVPB SCH ×3 (05:15→21:33)
[2016-05-25 07:26] LABS: ADD MANUAL DIFF? NO
[2016-05-25 07:31] LABS: BASO # 0.03 K/mm3 (0.0-2.0); BASO % 0.1 % (0.0-3.0); EOS % 0.1 % (1.5-5.0); GRAN # 20.25 (1.4-6.5); HEMATOCRIT 27.5 % (42.0-52.0); LYMPH # 2.2 (1.2-3.4); LYMPH % 8.7 % (22.0-35.0); MEAN CELL VOLUME 83.8 fL (80.0-105.0); MEAN CORPUSCULAR HEMOGLOBIN 26.8 pg (25.0-35.0); MEAN PLATELET VOLUME 10.4 fl (7.0-11.0); MONO # 3.1 (0.1-0.6); MONO % 12.1 % (1.0-6.0); PLATELET COUNT 280 10^3/uL (120.0-450.0); RED CELL DISTRIBUTION WIDTH 16.3 % (11.5-14.5)
[2016-05-25 07:38] LABS: WHITE BLOOD COUNT 25.6 10^3/ul (4.5-11.0)
[2016-05-25] MEDS ORDERED: Oxycodone/Acetaminophen 5/325 mg Tab PO PRN (09:47)
[2016-05-25] MEDS: Cefepime 1gm in NS 100ml 100 ML IVPB SCH ×2 (09:54→22:09)
[2016-05-25] MEDS: Potassium Chloride 20 MEQ in Dextrose 5%/0.45% NS 1,000 ML IV SCH (11:00)
--- NOTE | 2016-05-25 12:33 | CP.PCM.PN ---
Subjective - Date & Time of Evaluation Date of Evaluation: 05/25/16 Time of Evaluation: 12:31 - Subjective Subjective: Surgery: Dr. Peterson Pt seen and examined. Per nursing pt is having BM and blood per rectum. Pt is not a reliable historian but he denies any pain and denies N/V. Objective - Vital Signs/Intake and Output Vital Signs (last 24 hours): Temp Pulse Resp BP Pulse Ox 98.2 F 110 H 22 134/52 L 99 05/25/16 08:45 05/25/16 08:45 05/25/16 08:45 05/25/16 08:45 05/25/16 08:45 Intake and Output: 05/25/16 05/25/16 06:59 18:59 Intake Total 1500 Output Total 350 Balance 1150 - Medications Medications: Current Medications Acetaminophen (Tylenol 325mg Tab) 650 mg PO Q4H PRN PRN Reason: FEVER, PAIN Docusate Sodium (Colace) 100 mg PO BID [facility] Last Admin: 05/25/16 09:54 Dose: 100 mg Famotidine (Pepcid) 20 mg PO HS [facility] Last Admin: 05/24/16 22:35 Dose: 20 mg Ferrous Sulfate (Feosol) 324 mg PO DAILY [facility] Last Admin: 05/25/16 09:55 Dose: 324 mg Heparin Sodium (Porcine) (Heparin) 5,000 units SC 0100,1300 SHARIF PRN Reason: Protocol Last Admin: 05/25/16 02:11 Dose: 5,000 units Potassium Chloride 20 meq/ (Dextrose/Sodium Chloride) 1,010 mls @ 70 mls/hr IV .[id number] [facility] Last Admin: 05/24/16 23:12 Dose: Not Given Metronidazole (Flagyl) 100 mls @ 100 mls/hr IVPB Q8 SHARIF PRN Reason: Protocol Last Admin: 05/25/16 05:15 Dose: 100 mls/hr Cefepime HCl (Maxipime 1gm) 100 mls @ 100 mls/hr IVPB Q12 SHARIF PRN Reason: Protocol Last Admin: 05/25/16 09:54 Dose: 100 mls/hr Lorazepam (Ativan) 0.5 mg IVP Q6H PRN; Protocol PRN Reason: Anxiety Last Admin: 05/22/16 01:06 Dose: 0.5 mg Ondansetron HCl (Zofran Inj) 4 mg IVP Q4H PRN PRN Reason: Nausea/Vomiting Oxycodone/Acetaminophen (Percocet 5/325 Mg Tab) 1 tab PO Q6H PRN PRN Reason: Pain, severe (8-10) Stop: 05/28/16 09:48 Last Admin: 05/25/16 09:55 Dose: 1 tab - Labs Labs: 05/25/16 06:30 05/24/16 06:55 PT 11.9 Seconds (9.9-11.8) H 05/16/16 11:00 INR 1.10 (0.93-1.08) H 05/16/16 11:00 APTT 28.5 Seconds (23.7-30.8) 05/16/16 11:00 - Constitutional Appears: Non-toxic, No Acute Distress - Head Exam Head Exam: ATRAUMATIC, NORMOCEPHALIC - Eye Exam Eye Exam: EOMI. absent: Scleral icterus - ENT Exam ENT Exam: Mucous Membranes Moist, Normal External Ear Exam - Neck Exam Neck Exam: Full ROM - Respiratory Exam Respiratory Exam: NORMAL BREATHING PATTERN. absent: Accessory Muscle Use, Respiratory Distress - GI/Abdominal Exam GI & Abdominal Exam: Soft. absent: Distended, Firm, Guarding, Rigid, Tenderness Additional comments: incision C/D/I w. fabiana - Extremities Exam Extremities Exam: absent: Calf Tenderness, Pedal Edema - Neurological Exam Neurological Exam: Alert, Awake. absent: Oriented x3 Assessment and Plan - Assessment and Plan (Free Text) Assessment: 85M w. B/L inguinal hernias and cecal mass, s/p ex-lap w. R hemicolectomy, POD#3 -wbc trending up, pt is afebrile, no signs of surgical site infection, abd is soft and benign, likely reactive process vs. atelectasis, c/w abx -encourage OOB to chair, IS use, and c/w PT -c/w GI/DVT prophylaxis -will continue to follow closely -d/w attending Zemaitis PGY2
[2016-05-25] MEDS ORDERED: Barium Sulfate Susp 2.1% w/v, 2.0% w/w 450 mL Bottle PO ONE (12:34)
--- NOTE | 2016-05-25 12:52 | PN ---
DATE: 05/25/2016 The patient just returned from PT, no reports of acute overnight events. The patient was reported to have a bloody bowel movement last night. No further episodes reported this morning. The patient denies any nausea, vomiting, or any pain at this time. He is out of bed into the Ronit chair. VITAL SIGNS: Temperature 98.2, blood pressure 134/52, pulse 110, respirations 22, 99 on room air. His urine culture and blood cultures yesterday were negative. His white count was elevated yesterday. PHYSICAL EXAMINATION: HEENT: Sclerae anicteric. NECK: Supple. CARDIAC: S1, S2. LUNGS: Decreased breath sounds but good aeration, no rales or wheeze. ABDOMEN: With bowel sounds, soft with some tenderness, but no rebound or guarding. He has abdominal binder on right now. His Incision is clean and dry. EXTREMITIES: No edema. NEUROLOGIC: He is awake and alert. ASSESSMENT: An 85-year-old male with bilateral inguinal hernia and a cecal mass. He is status post exploratory lap with right hemicolectomy. He is also noted with anemia. He had status post blood transfusion of 2 units and increasing leukocytosis. His blood cultures and urine cultures are negative. He had a chest x-ray yesterday, which did not show any active disease, no evidence of pneumonia. PLAN: He is on IV antibiotics, Maxipime. He is on Flagyl. His heparin is currently on hold. Follow up pathology. He is on stool softener and getting Pepcid and iron supplement. The patient's WBCs are increasing. The patient is not reported to have any loose stools. If he has episodes, we will request stool for C. diff , ? repeat CT scan of abdomen and pelvis? Will discuss with attending, Dr. Luna. ADDENDUM: rectal exam: (+) violet blood with clots. STAT request for Bleeding scan and ct scan abdomen and pelvis no contrast. Diet changed to clear liquid. Henrietta Hurst KOFI cc: [id number] TT: 05/25/2016 12:51:37 Confirmation # [id number] Dictation # [id number] kate [facility]
--- NOTE | 2016-05-25 14:03 | PN ---
DATE: 05/25/2016 This 85-year-old male was examined at his bedside and the case was reviewed with Dr. Luna who is here as well. It was reported that the patient had a blood-tinged bowel movement yesterday as well as today and on further inspection , he is having bright red blood with clots on rectal exam as per Dr. Luna on his inspection today. The plan at present is to stop his subQ heparin. He is being ordered for an abdominal CAT scan with oral contrast as able and Dr. Luna is considering ordering a bleeding scan and will discuss further workup and intervention with Dr. Peterson from surgery. PHYSICAL EXAMINATION: VITAL SIGNS: Showed temperature 98.2, respirations 22, pulse 110, and blood pressure 134/52 with a pulse ox of 99%. HEAD: Normocephalic, atraumatic. EYES: Show no icterus. EARS: Clear. THROAT: Noninjected. NECK: Supple. HEART: S1, S2. LUNGS: Clear. ABDOMEN: With decreased bowel sounds. No rebound, no guarding. EXTREMITIES: No edema. SKIN: Without rash. NEUROLOGIC: Unchanged. PSYCHOLOGICAL: Alert. Chronic mental retardation. VASCULAR: Legs warm to touch. LABORATORY DATA: White count 25,600, hemoglobin 8.8, hematocrit 27.5, platelets 280,000. Sodium 136, K 3.9, chloride 103, bicarb is 29, BUN 7, creatinine 0.6, random blood sugar was 132. Procalcitonin level was low at 0.10. Urinalysis is negative. Urine culture is negative. Repeat blood cultures are negative. IMPRESSION: An 85-year-old mentally challenged male status post right hemicolectomy for cecal mass that was incarcerated in his right scrotum that has now been reduced with postoperative active gastrointestinal bleeding as well as leukocytosis. Rule out hemorrhage from the anastomosis site, rule out diverticulitis, rule out a gastrointestinal source of bleeding with probable dilutional anemia, iron deficiency anemia and no obvious source of sepsis at this time. PLAN: As discussed with nurse and Dr. Luna is to continue D5 0.45 saline at 70 mL per hour. He is also receiving Maxipime 1 gram IV q. 12, Flagyl 500 mg IV q. 8, Feosol 324 mg daily, Pepcid 20 mg p.o. daily. He is ordered to have a GI bleeding scan for this rectal bleeding, a CT of the abdomen stat and he has been downgraded to clear liquid diet as tolerated. He remains on fall precautions. I have discussed this case in detail with Dr. Peterson from surgery , Dr. Victoria from infectious disease and Dr. Luna who is at the patient's bedside with me at present. He will have a repeat CBC and a basic metabolic panel in the a.m. His prognosis is guarded at present. Greater than 40 minutes were spent in the care, discussion of care, coordination of care and review of this patient's chart presently today. Codi Pringle MD cc: [id number] TT: 05/25/2016 14:03:22 Confirmation # [id number] Dictation # [id number] tn MTDD
--- NOTE | 2016-05-25 14:50 | CT ---
PROCEDURE: CT Abdomen and Pelvis without intravenous contrast HISTORY: Rectal bleeding. Relevant surgical history: Exploratory laparotomy and right hemicolectomy. COMPARISON: 05/12/2016. TECHNIQUE: Unenhanced study. Neither oral nor intravenous contrast administered. Sensitivity and specificity for acute inflammatory processes limited by the absence of oral and intravenous contrast. Radiation dose: Total exam DLP = 986.33 MGy-cm. FINDINGS: LOWER THORAX: Lower lobe atelectasis/ infiltrates and small bilateral pleural effusions. These represent new findings compared to the preoperative CT scan 05/12/2016. LIVER: Unremarkable. No gross lesion or ductal dilatation. GALLBLADDER AND BILE DUCTS: Unremarkable. PANCREAS: Unremarkable. No gross lesion or ductal dilatation. SPLEEN: Unremarkable. ADRENALS: Unremarkable. No mass. KIDNEYS AND URETERS: Unremarkable. No hydronephrosis. No solid mass. VASCULATURE: Unremarkable. No aortic aneurysm. BOWEL: Bilateral inguinal hernias right larger than left again identified. Postoperative findings related to right hemicolectomy. No abnormalities at the anastomotic suture line. Likely incarcerated hernia on the right with proximal small bowel obstruction. Small bowel distal to the hernia is of normal luminal caliber. Fluid in the colon has an attenuation value of 59 compared to Hounsfield unit values of 15 and small bowel. This likely indicates a component of blood, hemorrhagic products throughout the colon. Approximately stable left inguinal hernia containing unremarkable loops of bowel. APPENDIX: Unremarkable. Normal appendix. PERITONEUM: Intra-abdominal free air related to recent surgery. LYMPH NODES: Unremarkable. No enlarged lymph nodes. BLADDER: Unremarkable. REPRODUCTIVE: Unremarkable. BONES: No acute fracture. OTHER FINDINGS: None. IMPRESSION: Small bowel obstruction proximal to the right hernia sac which contains dilated loops of small bowel. Findings are consistent with incarceration and secondary proximal bowel obstruction. Status post right hemicolectomy you with no abnormalities of consequence apparent at the anastomotic suture line. High attenuation fluid, blood throughout the colon. Critical results protocol: Study completed 14:10 Results conveyed verbally at 14:41. Interpretation finalized and available for review 14:47.
--- NOTE | 2016-05-25 16:42 | NM ---
PROCEDURE: Nuclear medicine gastrointestinal bleeding scan. HISTORY: rectal bleeding COMPARISON: None available. TECHNIQUE: 4 cc of patient blood was withdrawn and mixed with 25 mCi of technetium ultra tagged. Images of the abdomen and pelvis were obtained in the anterior and projection at 1 min intervals over a period of 45 min. FINDINGS: Focal accumulation of the radionuclide is seen on both sides of the pelvis. There is moderate activity which is seen early on the right side and more intense focal accumulation on the left side consistent with active hemorrhage in the sigmoid colon. Physiologic activity is seen in the vascular system. IMPRESSION: Active GI bleed on both sides of the pelvis probably within the sigmoid colon
--- NOTE | 2016-05-25 19:00 | CP.PCM.PN ---
Subjective - Date & Time of Evaluation Date of Evaluation: 05/25/16 Time of Evaluation: 17:15 - Subjective Subjective: Infectious Disease Follow Up: May 25, 2016 85 yo male with initial presentation for abdominal pain and abnormal CT scan sent from [facility] facility (I think [facility] [place]). 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 Currently the patient appears comfortable. He is unable to give any relevant information due to a severe developmental delay. Patient is currently post-operative day #3 and has been displaying increasing leukocytosis since the surgery. Patient himself is awake and alert and does not appear to be making any major complaints. Nursing reports BM but also blood in BM. Objective - Vital Signs/Intake and Output Vital Signs (last 24 hours): Temp Pulse Resp BP Pulse Ox 98 F 98 H 20 153/92 H 92 L 05/25/16 16:15 05/25/16 16:15 05/25/16 16:15 05/25/16 16:15 05/25/16 16:15 Intake and Output: 05/25/16 05/25/16 06:59 18:59 Intake Total 1500 640 Output Total 350 Balance 1150 640 - Medications Medications: Current Medications Acetaminophen (Tylenol 325mg Tab) 650 mg PO Q4H PRN PRN Reason: FEVER, PAIN Docusate Sodium (Colace) 100 mg PO BID [facility] Last Admin: 05/25/16 17:43 Dose: 100 mg Famotidine (Pepcid) 20 mg PO HS [facility] Last Admin: 05/24/16 22:35 Dose: 20 mg Ferrous Sulfate (Feosol) 324 mg PO DAILY [facility] Last Admin: 05/25/16 09:55 Dose: 324 mg Heparin Sodium (Porcine) (Heparin) 5,000 units SC 0100,1300 SHARIF PRN Reason: Protocol Last Admin: 05/25/16 02:11 Dose: 5,000 units Potassium Chloride 20 meq/ (Dextrose/Sodium Chloride) 1,010 mls @ 70 mls/hr IV .[id number] [facility] Last Admin: 05/25/16 11:00 Dose: 70 mls/hr Metronidazole (Flagyl) 100 mls @ 100 mls/hr IVPB Q8 SHARIF PRN Reason: Protocol Last Admin: 05/25/16 14:00 Dose: 100 mls/hr Cefepime HCl (Maxipime 1gm) 100 mls @ 100 mls/hr IVPB Q12 SHARIF PRN Reason: Protocol Last Admin: 05/25/16 09:54 Dose: 100 mls/hr Lorazepam (Ativan) 0.5 mg IVP Q6H PRN; Protocol PRN Reason: Anxiety Last Admin: 05/22/16 01:06 Dose: 0.5 mg Ondansetron HCl (Zofran Inj) 4 mg IVP Q4H PRN PRN Reason: Nausea/Vomiting Last Admin: 05/25/16 17:53 Dose: 4 mg Oxycodone/Acetaminophen (Percocet 5/325 Mg Tab) 1 tab PO Q6H PRN PRN Reason: Pain, severe (8-10) Stop: 05/28/16 09:48 Last Admin: 05/25/16 09:55 Dose: 1 tab - Labs Labs: 05/25/16 06:30 05/24/16 06:55 PT 11.9 Seconds (9.9-11.8) H 05/16/16 11:00 INR 1.10 (0.93-1.08) H 05/16/16 11:00 APTT 28.5 Seconds (23.7-30.8) 05/16/16 11:00 - Constitutional Appears: Non-toxic, No Acute Distress, Confused, Chronically Ill - Head Exam Head Exam: ATRAUMATIC, NORMOCEPHALIC - Eye Exam Eye Exam: EOMI, PERRL Pupil Exam: NORMAL ACCOMODATION, PERRL - ENT Exam ENT Exam: Mucous Membranes Moist, Normal External Ear Exam, TM's Normal Bilaterally - Neck Exam Neck Exam: Full ROM, Normal Inspection - Respiratory Exam Respiratory Exam: Clear to Ausculation Bilateral, NORMAL BREATHING PATTERN. absent: Rales, Rhonchi, Wheezes - Cardiovascular Exam Cardiovascular Exam: REGULAR RHYTHM, RRR, +S1, +S2 - GI/Abdominal Exam Additional comments: abdominal binder in place. Recent exploratory laparotomy. He is not indicating any abdominal pain. - Extremities Exam Extremities Exam: Full ROM, Normal Inspection - Neurological Exam Neurological Exam: Alert, Awake, CN II-XII Intact Additional comments: mental retardation. Expresses what he wants to say. He doesn't necessarily answer questions given to him. Assessment and Plan - Assessment and Plan (Free Text) Assessment: 85 yo male with cecal mass and bilateral hernia had exploratory laparotomy with right hemicolectomy. The patient is unable to give any significant information when speaking with him. He is not complaining of pain. The patient had a sudden rise in his leukocytosis to 21.3 and now to 25.6 today. There is a mild left shift to the leukocytosis. Supportive care. Silva cultures sent. Had Proteus in urine culture over a week ago but more recent urine culture is negative for growth. Currently on Cefepime and Flagyl for antibiotic coverage. Supportive care. CT Scan results noted with small bowel obstruction proximal to the right hernia sac containing dilated loops of small bowel. Findings consistent with incarceration and secondary proximal bowel obstruction. GI bleeding scan showing active bleed on both sides of the pelvis probably within the sigmoid colon. Surgery aware of findings. Thank you for allowing me to participate in the care of the patient, we will follow with you.
[2016-05-25 19:43] LABS: HEMATOCRIT 29.3 % (42.0-52.0); MEAN CORPUSCULAR HEMOGLOBIN 26.9 pg (25.0-35.0); MEAN CORPUSCULAR HGB CONC 32.1 g/dl (31.0-37.0); MEAN PLATELET VOLUME 10.4 fl (7.0-11.0); RED CELL DISTRIBUTION WIDTH 16.6 % (11.5-14.5); WHITE BLOOD COUNT 23.2 10^3/ul (4.5-11.0)
[2016-05-26 00:37] LABS: HEMATOCRIT 28.7 % (42.0-52.0); MEAN CELL VOLUME 84.2 fL (80.0-105.0); MEAN CORPUSCULAR HEMOGLOBIN 27.3 pg (25.0-35.0); MEAN CORPUSCULAR HGB CONC 32.4 g/dl (31.0-37.0); MEAN PLATELET VOLUME 10.3 fl (7.0-11.0); PLATELET COUNT 302 10^3/uL (120.0-450.0); RED CELL DISTRIBUTION WIDTH 16.6 % (11.5-14.5); WHITE BLOOD COUNT 22.6 10^3/ul (4.5-11.0)
[2016-05-26 00:39] LABS: ADD MANUAL DIFF? YES
[2016-05-26 01:07] LABS: ANISOCYTOSIS 1+; HYPOCHROMIA 1+; NEUTROPHIL 86 % (50.0-70.0); PLATELET ESTIMATE NORMAL (NORMAL)
[2016-05-26 01:08] LABS: POLYCHROMASIA 1+
[2016-05-26] MEDS: Potassium Chloride 20 MEQ in Dextrose 5%/0.45% NS 1,000 ML IV SCH (01:30)
--- NOTE | 2016-05-26 03:08 | CP.PCM.CON ---
<Addis Kelley - Last Filed: 05/26/16 03:04> History of Present Illness - History of Present Illness History of Present Illness: This is an 85Y M with PMH of mental retardation, dementia, degenerative arthritis and anemia admitted on 05/16/16 for a large, bilateral, non-reducible inguinal hernia with cecal mass seen on CT. The patient underwent a ex lap for the cecal mass (R Hemicolectomy) and bilateral hernia was not able to be repaired on 05/23/16. It was noted today that patient's WBC was trending upwards. Repeat CT was done which showed small bowel obstruction proximal to the R hernia sac which contains dilated looks of small bowel consistent to incarcerated hernia and large amount of fluid/blood throughout colon. A bleeding scan was done which was positive for bleed in pelvis in sigmoid colon. Patient was noted to have large blood bowel movement as well. He is a poor historian and will not answer to questioning. History obtained from records. 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 PMH: Anemia, MR, Dementia, Degenerative arthritis PSH: EGD, colonoscopy 03/2016 Meds: Please see MAR All: NKDA SH: Denies PMD: Dr. Pringle Review of Systems - Review of Systems Systems not reviewed;Unavailable: Dementia, Other (Mental Retardation) Past Patient History - Past Social History Smoking Status: Former Smoker - CARDIAC Hx Pacemaker: No - PULMONARY Hx Respiratory Disorders: No - NEUROLOGICAL Hx Paralysis: No - HEENT Hx HEENT Problems: No - ENDOCRINE/METABOLIC Hx Endocrine Disorders: No - HEMATOLOGICAL/ONCOLOGICAL Hx Blood Transfusions: No Hx Blood Transfusion Reaction: No - INTEGUMENTARY Hx Dermatological Problems: No - MUSCULOSKELETAL/RHEUMATOLOGICAL Hx Arthritis: Yes - GASTROINTESTINAL Hx Gastrointestinal Disorders: Yes (HERNIA) - GENITOURINARY/GYNECOLOGICAL Hx Genitourinary Disorders: Yes (ENLARGED PROSTATE) - PSYCHIATRIC Hx Substance Use: No - SURGICAL HISTORY Hx Surgeries: No - ANESTHESIA Hx Anesthesia Reactions: No Hx Malignant Hyperthermia: No Meds Allergies/Adverse Reactions: Allergies Allergy/AdvReac Type Severity Reaction Status Date / Time No Known Allergies Allergy Verified 05/16/16 17:12 - Medications Medications: Current Medications Acetaminophen (Tylenol 325mg Tab) 650 mg PO Q4H PRN PRN Reason: FEVER, PAIN Docusate Sodium (Colace) 100 mg PO BID [facility] Last Admin: 05/25/16 17:43 Dose: 100 mg Famotidine (Pepcid) 20 mg PO HS [facility] Last Admin: 05/25/16 21:34 Dose: 20 mg Ferrous Sulfate (Feosol) 324 mg PO DAILY [facility] Last Admin: 05/25/16 09:55 Dose: 324 mg Heparin Sodium (Porcine) (Heparin) 5,000 units SC 0100,1300 SH[facility] PRN Reason: Protocol Last Admin: 05/25/16 02:11 Dose: 5,000 units Potassium Chloride 20 meq/ (Dextrose/Sodium Chloride) 1,010 mls @ 70 mls/hr IV .[id number] [facility] Last Admin: 05/25/16 11:00 Dose: 70 mls/hr Metronidazole (Flagyl) 100 mls @ 100 mls/hr IVPB Q8 [facility] PRN Reason: Protocol Last Admin: 05/25/16 21:33 Dose: 100 mls/hr Cefepime HCl (Maxipime 1gm) 100 mls @ 100 mls/hr IVPB Q12 [facility] PRN Reason: Protocol Last Admin: 05/25/16 22:09 Dose: 100 mls/hr Lorazepam (Ativan) 0.5 mg IVP Q6H PRN; Protocol PRN Reason: Anxiety Last Admin: 05/25/16 21:57 Dose: 0.5 mg Ondansetron HCl (Zofran Inj) 4 mg IVP Q4H PRN PRN Reason: Nausea/Vomiting Last Admin: 05/25/16 17:53 Dose: 4 mg Oxycodone/Acetaminophen (Percocet 5/325 Mg Tab) 1 tab PO Q6H PRN PRN Reason: Pain, severe (8-10) Stop: 05/28/16 09:48 Last Admin: 05/25/16 09:55 Dose: 1 tab Physical Exam - Constitutional Appears: No Acute Distress - Head Exam Head Exam: ATRAUMATIC, NORMAL INSPECTION, NORMOCEPHALIC - Eye Exam Eye Exam: Normal appearance Pupil Exam: NORMAL ACCOMODATION - ENT Exam ENT Exam: Mucous Membranes Moist - Neck Exam Neck exam: Positive for: Normal Inspection - Respiratory Exam Respiratory Exam: Clear to Auscultation Bilateral, NORMAL BREATHING PATTERN. absent: Rales, Rhonchi, Wheezes, Respiratory Distress - Cardiovascular Exam Cardiovascular Exam: REGULAR RHYTHM, +S1, +S2. absent: Gallop, Rubs, Systolic Murmur - GI/Abdominal Exam GI & Abdominal Exam: Hyperactive Bowel Sounds, Soft, Tenderness. absent: Mass, Rebound, Rigid Additional comments: Binder in place, stables in place midline, no drainage seen - Rectal Exam Rectal Exam: Bloody Stool Additional comments: Multiple large bloody BM - Exam Exam: Scrotal Swelling (very large bilateral scrotal swelling ), Testicular Tenderness External exam: Swelling - Extremities Exam Extremities exam: Positive for: normal inspection. Negative for: calf tenderness, pedal edema - Neurological Exam Neurological exam: Alert, CN II-XII Intact - Skin Skin Exam: Dry, Intact, Normal Color, Warm Results - Vital Signs Recent Vital Signs: Last Vital Signs Temp 98.2 F 05/26/16 00:00 Pulse 98 H 05/26/16 00:00 Resp 24 05/26/16 00:00 BP 134/62 05/26/16 00:00 Pulse Ox 99 05/26/16 00:00 - Labs Result Diagrams: 05/26/16 00:20 05/24/16 06:55 Labs: Laboratory Results - last 24 hr 05/25/16 05/25/16 05/26/16 06:30 19:39 00:20 WBC 25.6 H* D 23.2 H 22.6 H RBC 3.28 L 3.49 L 3.41 L Hgb 8.8 L 9.4 L 9.3 L Hct 27.5 L 29.3 L 28.7 L MCV 83.8 84.0 84.2 MCH 26.8 26.9 27.3 MCHC 32.0 32.1 32.4 RDW 16.3 H 16.6 H 16.6 H Plt Count 280 312 302 MPV 10.4 10.4 10.3 Gran % 79.0 H Lymph % (Auto) 8.7 L [place] % (Auto) 12.1 H Eos % (Auto) 0.1 L Baso % (Auto) 0.1 Gran # 20.25 H Lymph # 2.2 [place] # 3.1 H Eos # 0.0 Baso # 0.03 Neutrophils % (Manual) 86 H Lymphocytes % (Manual) 8 L Monocytes % (Manual) 6 Platelet Evaluation Normal Polychromasia 1+ Hypochromasia 1+ Anisocytosis (manual) 1+ Assessment & Plan - Assessment and Plan (Free Text) Assessment: This is an 85Y M with PMH of mental retardation, dementia, degenerative arthritis and anemia with active GI bleed s/p R hemicolectomy. Plan: Neuro: Mental Retardation Maintain normothermia Pain control CV: Hemodynamically stable Maintain MAP >65 Pulm: Maintain Sp02>90 NC prn GI: Bloody BM NPO Protonix IV Hold PO meds Heme: CBC q4h Transfuse if Hgb <8 Renal/: Hernia partially reduced bilaterally On D5/1/2NS @70 Continue to monitor electrolytes will replace/replete as needed ID: Leukocystosis Silva- cultures pending Cefepime/Flagyl Endo: Maintain euglycemia GI ppx: PTX DVT ppx: SCDs Case seen, reviewed and discussed with attending Soledad Kelley PGY1 - Date & Time Date: 05/26/16 Time: 03:30 <Lida BARRERA,Albert - Last Filed: 05/26/16 05:41> Meds - Medications Medications: Current Medications Acetaminophen (Tylenol 325mg Tab) 650 mg PO Q4H PRN PRN Reason: FEVER, PAIN Docusate Sodium (Colace) 100 mg PO BID [facility] Last Admin: 05/25/16 17:43 Dose: 100 mg Famotidine (Pepcid) 20 mg PO HS [facility] Last Admin: 05/25/16 21:34 Dose: 20 mg Ferrous Sulfate (Feosol) 324 mg PO DAILY [facility] Last Admin: 05/25/16 09:55 Dose: 324 mg Heparin Sodium (Porcine) (Heparin) 5,000 units SC 0100,1300 [facility] PRN Reason: Protocol Last Admin: 05/26/16 01:00 Dose: Not Given Potassium Chloride 20 meq/ (Dextrose/Sodium Chloride) 1,010 mls @ 70 mls/hr IV .[id number] [facility] Last Admin: 05/26/16 01:30 Dose: 70 mls/hr Metronidazole (Flagyl) 100 mls @ 100 mls/hr IVPB Q8 [facility] PRN Reason: Protocol Last Admin: 05/26/16 05:33 Dose: 100 mls/hr Cefepime HCl (Maxipime 1gm) 100 mls @ 100 mls/hr IVPB Q12 [facility] PRN Reason: Protocol Last Admin: 05/25/16 22:09 Dose: 100 mls/hr Acetaminophen (Ofirmev) 100 mls @ 400 mls/hr IVPB Q6H PRN PRN Reason: Fever >100.4 F Stop: 05/28/16 03:33 Lorazepam (Ativan) 0.5 mg IVP Q6H PRN; Protocol PRN Reason: Anxiety Last Admin: 05/25/16 21:57 Dose: 0.5 mg Morphine Sulfate (Morphine) 2 mg IVP Q4H PRN PRN Reason: Pain, moderate (4-7) Last Admin: 05/26/16 03:48 Dose: 2 mg Ondansetron HCl (Zofran Inj) 4 mg IVP Q4H PRN PRN Reason: Nausea/Vomiting Last Admin: 05/25/16 17:53 Dose: 4 mg Oxycodone/Acetaminophen (Percocet 5/325 Mg Tab) 1 tab PO Q6H PRN PRN Reason: Pain, severe (8-10) Stop: 05/28/16 09:48 Last Admin: 05/25/16 09:55 Dose: 1 tab Pantoprazole Sodium (Protonix Inj) 40 mg IVP DAILY [facility] Results - Vital Signs Recent Vital Signs: Last Vital Signs Temp 97.4 F L 05/26/16 04:00 Pulse 90 05/26/16 04:00 Resp 34 H 05/26/16 04:00 BP 144/84 05/26/16 04:00 Pulse Ox 99 05/26/16 04:00 - Labs Result Diagrams: 05/26/16 04:00 05/26/16 04:00 Labs: Laboratory Results - last 24 hr 05/25/16 05/25/16 05/26/16 06:30 19:39 00:20 WBC 25.6 H* D 23.2 H 22.6 H RBC 3.28 L 3.49 L 3.41 L Hgb 8.8 L 9.4 L 9.3 L Hct 27.5 L 29.3 L 28.7 L MCV 83.8 84.0 84.2 MCH 26.8 26.9 27.3 MCHC 32.0 32.1 32.4 RDW 16.3 H 16.6 H 16.6 H Plt Count 280 312 302 MPV 10.4 10.4 10.3 Gran % 79.0 H Lymph % (Auto) 8.7 L [place] % (Auto) 12.1 H Eos % (Auto) 0.1 L Baso % (Auto) 0.1 Gran # 20.25 H Lymph # 2.2 [place] # 3.1 H Eos # 0.0 Baso # 0.03 Neutrophils % (Manual) 86 H Lymphocytes % (Manual) 8 L Monocytes % (Manual) 6 Platelet Evaluation Normal Polychromasia 1+ Hypochromasia 1+ Anisocytosis (manual) 1+ Sodium Potassium Chloride Carbon Dioxide Anion Gap BUN Creatinine Est GFR ( Amer) Est GFR (Non-Af Amer) Random Glucose Calcium Total Bilirubin AST ALT Alkaline Phosphatase Total Protein Albumin Globulin Albumin/Globulin Ratio 05/26/16 04:00 WBC 22.5 H RBC 3.67 Hgb 9.8 L Hct 31.5 L MCV 85.8 MCH 26.7 MCHC 31.1 RDW 17.5 H Plt Count 330 MPV 11.2 H Gran % Lymph % (Auto) [place] % (Auto) Eos % (Auto) Baso % (Auto) Gran # Lymph # [place] # Eos # Baso # Neutrophils % (Manual) 84 H Lymphocytes % (Manual) 6 L Monocytes % (Manual) 10 H Platelet Evaluation Normal Polychromasia Hypochromasia 1+ Anisocytosis (manual) 1+ Sodium 135 Potassium 3.9 Chloride 100 Carbon Dioxide 29 Anion Gap 10 BUN 9 Creatinine 0.5 Est GFR ( Amer) > 60 Est GFR (Non-Af Amer) > 60 Random Glucose 109 Calcium 8.0 L Total Bilirubin 0.4 AST 34 ALT 21 Alkaline Phosphatase 63 Total Protein 5.7 L Albumin 2.6 L Globulin 3.1 Albumin/Globulin Ratio 0.8 L Attending/Attestation - Attestation I have personally seen and examined this patient.: Yes I have fully participated in the care of the patient.: Yes I have reviewed all pertinent clinical information: Yes Notes (Text): 05/26/16 05:39 -I agree with the above H&P completed by the resident physician with the following changes and/or additions: The patient is a 66 year old man with a history of developmental delay, iron deficiency anemia, and degenerative arthritis who was [place] [facility] [place] bilateral, non-reducible inguinal hernias and a CT-scan showing a large cecal mass, concerning for malignancy. As a result, he underwent an exploratory laparotomy and right hemicolectomy 4 day ago (with pathology of cecal mass still pending). Because of the hemicolectomy, the patients bilateral inguinal hernias could not be repaired during the procedure. Post-operatively, the patient developed marked leukocytosis (presumed to be secondary to post-op reactive atelectasis) which is being treated empirically with IV Cefepime and Flagyl by ID consult. In addition, recently, he developed intermittent rectal bleeding, which prompted a stat nuclear bleeding scan and CT-AP to be done late yesterday afternoon. The CT scan shows an incarcerated right hernia sac with secondary small bowel obstruction, which general surgery manually reduced yesterday evening. The bleeding scan shows active bleeding most likely from the sigmoid colon. As a result of this active bleeding, the patient will be upgraded to the ICU for closer monitoring; especially given his age. He will be kept NPO with IVFs overnight and we will monitor CBCs Q4 hours.
[2016-05-26] MEDS ORDERED: Morphine 2 mg/ml ISec IVP PRN (03:23)
[2016-05-26] MEDS ORDERED: Levalbuterol 0.63 MG/3 ML Inhal Soln UD IH STA (03:25)
[2016-05-26 04:16] LABS: HEMATOCRIT 31.5 % (42.0-52.0); MEAN CELL VOLUME 85.8 fL (80.0-105.0); MEAN CORPUSCULAR HEMOGLOBIN 26.7 pg (25.0-35.0); MEAN CORPUSCULAR HGB CONC 31.1 g/dl (31.0-37.0); PLATELET COUNT 330 10^3/uL (120.0-450.0); RED CELL DISTRIBUTION WIDTH 17.5 % (11.5-14.5); WHITE BLOOD COUNT 22.5 10^3/ul (4.5-11.0)
[2016-05-26 04:17] LABS: ADD MANUAL DIFF? YES; MEAN PLATELET VOLUME 11.2 fl (7.0-11.0)
[2016-05-26 04:26] LABS: ALB/GLOB RATIO 0.8 (1.1-1.8); ALKALINE PHOSPHATASE 63 U/L (38-133); ALT/SGPT 21 U/L (7-56); AST/SGOT 34 U/L (15-59); BILIRUBIN,TOTAL 0.4 mg/dL (0.2-1.3); BLOOD UREA NITROGEN 9 mg/dL (7-21); CARBON DIOXIDE 29 mmol/L (21-33); CHLORIDE 100 mmol/L (98-107); GFR AFRICAN-AMERICAN > 60; GLUCOSE,RANDOM 109 mg/dL (70-110); POTASSIUM 3.9 mmol/L (3.6-5.0); SODIUM 135 mmol/L (132-148); TOTAL PROTEIN 5.7 g/dL (5.8-8.3)
[2016-05-26 05:15] LABS: NEUTROPHIL 84 % (50.0-70.0)
[2016-05-26 05:16] LABS: PLATELET ESTIMATE NORMAL (NORMAL)
[2016-05-26 05:17] LABS: HYPOCHROMIA 1+
[2016-05-26 05:18] LABS: ANISOCYTOSIS 1+
[2016-05-26] MEDS: metroNIDAZOLE IV 500 mg/100 ml 100 ML IVPB SCH ×3 (05:33→22:13)
--- NOTE | 2016-05-26 07:41 | PN ---
DATE: 05/25/2016 SUBJECTIVE: This patient was seen and evaluated earlier . This is an addendum to the GI progre ss report dictated by Henrietta Hurst. The patient did have a history of bleeding overnight. The patient had a bleeding per rectum. His he moglobin also has dropped before, transfusion had active bleeding. The patient's hemoglo bin on 05/23 dropped to 7.1 transfusion. Now, the hemoglobin remains . PHYSICAL EXAMINATION: ABDOMEN: Soft. Dressing present over the site of the surgery. RECTAL: Examination revealed dark several blood clots. RECOMMENDATION: Bleeding scan and also CT of the abdomen and pelvis with p.o. contrast. The patient could not tolerate the p.o. contrast; so, subsequently the patient went for CT without a contrast. Found to have hernia, which was subsequently reduced. This patient is status post laparotomy a nd right hemicolectomy, admitted high white cell count rule out sepsis, abdomen clinicall y is benign. CBD is borderline. Requested MRCP to further evaluate. Ann Luna MD cc: [id number] TT: 05/26/2016 04:19:41 Confirmation # [id number] Dictation # [id number] in 05/26/2016 05:17:14
[2016-05-26 08:47] LABS: ADD MANUAL DIFF? NO
[2016-05-26 08:48] LABS: BASO # 0.02 K/mm3 (0.0-2.0); BASO % 0.1 % (0.0-3.0); EOS # 0.1 (0.0-0.7); EOS % 0.2 % (1.5-5.0); GRAN # 20.27 (1.4-6.5); GRAN % 81.9 % (50.0-68.0); LYMPH # 1.2 (1.2-3.4); LYMPH % 4.8 % (22.0-35.0); MEAN CELL VOLUME 85.4 fL (80.0-105.0); MEAN CORPUSCULAR HEMOGLOBIN 26.7 pg (25.0-35.0); MEAN CORPUSCULAR HGB CONC 31.3 g/dl (31.0-37.0); MEAN PLATELET VOLUME 10.5 fl (7.0-11.0); MONO # 3.2 (0.1-0.6); PLATELET COUNT 319 10^3/uL (120.0-450.0); RED CELL DISTRIBUTION WIDTH 17.2 % (11.5-14.5); WHITE BLOOD COUNT 24.8 10^3/ul (4.5-11.0)
--- NOTE | 2016-05-26 09:19 | CP.CCUPN ---
Addendum entered and electronically signed by Roger Britton DO 05/26/16 10:54: Pt had coffee ground color vomiting this AM. Pt desaturated to 80s% and became tachycardic around 120s. Pt was intubated and OG tube placed. 300cc coffee ground fluids. -Place CVC -FFP -PRBC -Platelet -ETT -Surgery called. Original Note: <Roger Britton - Last Filed: 05/26/16 09:31> CCU Subjective - Physician Review Subjective (Free Text): 05/26/16 09:16 Pt s &e w ICU attending. Pt was transfered overnight for active lower GI bleeding. Unable to assess due to developemntal delay. Abd dressing was changed by surgical team this AM. Hernia was reduced while pt was on the floor but recurred. Irreducible. Pt continue to have large amount of lower GI bleed. Dark red blood clot noted. CCU Objective - Vital Signs / Intake & Output Vital Signs (Last 4 hours): Vital Signs Pulse Resp BP Pulse Ox 05/26/16 06:00 84 28 H 132/73 96 Intake and Output (Last 8hrs): Intake & Output 05/25/16 05/26/16 05/26/16 22:59 06:59 14:59 Intake Total 1140 Balance 1140 Intake: IV 1140 Left Forearm 1140 Other: # Bowel Movements 3 - Physical Exam Head: Positive for: Atraumatic, Normocephalic. Negative for: Ecchymosis Pupils: Positive for: PERRL Extroacular Muscles: Positive for: EOMI Conjunctiva: Positive for: Normal. Negative for: Icteric Mouth: Positive for: Moist Mucous Membranes Pharnyx: Negative for: ERYTHEMA Nose (Internal): Positive for: Normal Inspection, No Active Bleeding Respiratory/Chest: Negative for: Respiratory Distress, Tachypneic Cardiovascular: Positive for: Regular Rate and Rhythm, Normal S1, S2 Abdomen: Positive for: Tenderness, Hernias. Negative for: Distention, Peritoneal Signs, Rebound, Guarding Rectal: Positive for: Gross Blood Genitourinary Male: Positive for: Testicle Tenderness, Masses, Erythema, Hernias , Testicle Swelling, Other (Large [id number] R inguinal hernia: irreducible. 10x5cm L inguinal hernia : irreducible. Erythematous). Negative for: Normal External Genitalia Upper Extremity: Positive for: Normal Inspection Lower Extremity: Positive for: Normal Inspection Skin: Positive for: Warm, Dry, Normal Color Psychiatric: Negative for: Oriented x 3, Normal Insight - Medications Active Medications: Active Medications Generic Name Dose Route Start Last Admin Trade Name Freq PRN Reason Stop Dose Admin Acetaminophen 650 mg 05/17/16 08:33 Tylenol 325mg Tab PO Q4H PRN FEVER, PAIN Docusate Sodium 100 mg 05/17/16 10:00 05/25/16 17:43 Colace PO 100 mg BID SHARIF Administration Famotidine 20 mg 05/20/16 22:00 05/25/16 21:34 Pepcid PO 20 mg HS SHARIF Administration Ferrous Sulfate 324 mg 05/17/16 10:00 05/25/16 09:55 Feosol PO 324 mg DAILY SHARIF Administration Heparin Sodium (Porcine) 5,000 units 05/23/16 13:00 05/26/16 01:00 Heparin SC Not Given 0100,1300 SHARIF Protocol Potassium Chloride 20 meq/ 1,010 mls @ 70 mls/hr 05/23/16 15:45 05/26/16 01:30 Dextrose/Sodium Chloride IV 70 mls/hr .[id number] SHARIF Administration Metronidazole 100 mls @ 100 mls/hr 05/24/16 08:15 05/26/16 05:33 Flagyl IVPB 100 mls/hr Q8 SHARIF Administration Protocol Cefepime HCl 100 mls @ 100 mls/hr 05/24/16 22:00 05/25/16 22:09 Maxipime 1gm IVPB 100 mls/hr Q12 SHARIF Administration Protocol Acetaminophen 100 mls @ 400 mls/hr 05/26/16 03:32 Ofirmev IVPB 05/28/16 03:33 Q6H PRN Fever >100.4 F Lorazepam 0.5 mg 05/17/16 12:00 05/25/16 21:57 Ativan IVP 0.5 mg Q6H PRN Administration Anxiety Protocol Morphine Sulfate 2 mg 05/26/16 03:23 05/26/16 03:48 Morphine IVP 2 mg Q4H PRN Administration Pain, moderate (4-7) Ondansetron HCl 4 mg 05/22/16 15:43 05/25/16 17:53 Zofran Inj IVP 4 mg Q4H PRN Administration Nausea/Vomiting Oxycodone/Acetaminophen 1 tab 05/25/16 09:47 05/25/16 09:55 Percocet 5/325 Mg Tab PO 05/28/16 09:48 1 tab Q6H PRN Administration Pain, severe (8-10) Pantoprazole Sodium 40 mg 05/26/16 10:00 Protonix Inj IVP DAILY SHARIF - Patient Studies Lab Studies: Microbiology Studies 05/24/16 11:09 Urine Culture - Final Urine No Growth (<1,000 CFU/ML) 05/24/16 09:10 Blood Culture - Preliminary Blood-Venous NO GROWTH AFTER 24 HOURS 05/24/16 09:00 Blood Culture - Preliminary Blood-Venous NO GROWTH AFTER 24 HOURS Lab Studies 05/26/16 05/26/16 05/26/16 Range/Units 07:30 04:00 00:20 WBC 24.8 H 22.5 H 22.6 H (4.5-11.0) 10^3/ul RBC 3.63 3.67 3.41 L (3.5-6.1) 10^6/uL Hgb 9.7 L 9.8 L 9.3 L (14.0-18.0) gm/dL Hct 31.0 L 31.5 L 28.7 L (42.0-52.0) % MCV 85.4 85.8 84.2 (80.0-105.0) fL MCH 26.7 26.7 27.3 (25.0-35.0) pg MCHC 31.3 31.1 32.4 (31.0-37.0) g/dl RDW 17.2 H 17.5 H 16.6 H (11.5-14.5) % Plt Count 319 330 302 (120.0-450.0) 10^3/uL MPV 10.5 11.2 H 10.3 (7.0-11.0) fl Gran % 81.9 H (50.0-68.0) % Lymph % (Auto) 4.8 L (22.0-35.0) % Beadle % (Auto) 13.0 H (1.0-6.0) % Eos % (Auto) 0.2 L (1.5-5.0) % Baso % (Auto) 0.1 (0.0-3.0) % Gran # 20.27 H (1.4-6.5) Lymph # 1.2 (1.2-3.4) Beadle # 3.2 H (0.1-0.6) Eos # 0.1 (0.0-0.7) Baso # 0.02 (0.0-2.0) K/mm3 Neutrophils % (Manual) 84 H 86 H (50.0-70.0) % Lymphocytes % (Manual) 6 L 8 L (22.0-35.0) % Monocytes % (Manual) 10 H 6 (1.0-6.0) % Platelet Evaluation Normal Normal (NORMAL) Polychromasia 1+ Hypochromasia 1+ 1+ Anisocytosis (manual) 1+ 1+ Sodium 135 (132-148) mmol/L Potassium 3.9 (3.6-5.0) mmol/L Chloride 100 (98-107) mmol/L Carbon Dioxide 29 (21-33) mmol/L Anion Gap 10 (10-20) BUN 9 (7-21) mg/dL Creatinine 0.5 (0.5-1.4) mg/dL Est GFR ( Amer) > 60 Est GFR (Non-Af Amer) > 60 Random Glucose 109 (70-110) mg/dL Calcium 8.0 L (8.4-10.5) mg/dL Total Bilirubin 0.4 (0.2-1.3) mg/dL AST 34 (15-59) U/L ALT 21 (7-56) U/L Alkaline Phosphatase 63 (38-133) U/L Total Protein 5.7 L (5.8-8.3) g/dL Albumin 2.6 L (3.0-4.8) g/dL Globulin 3.1 gm/dL Albumin/Globulin Ratio 0.8 L (1.1-1.8) 05/25/16 Range/Units 19:39 WBC 23.2 H (4.5-11.0) 10^3/ul RBC 3.49 L (3.5-6.1) 10^6/uL Hgb 9.4 L (14.0-18.0) gm/dL Hct 29.3 L (42.0-52.0) % MCV 84.0 (80.0-105.0) fL MCH 26.9 (25.0-35.0) pg MCHC 32.1 (31.0-37.0) g/dl RDW 16.6 H (11.5-14.5) % Plt Count 312 (120.0-450.0) 10^3/uL MPV 10.4 (7.0-11.0) fl Gran % (50.0-68.0) % Lymph % (Auto) (22.0-35.0) % Beadle % (Auto) (1.0-6.0) % Eos % (Auto) (1.5-5.0) % Baso % (Auto) (0.0-3.0) % Gran # (1.4-6.5) Lymph # (1.2-3.4) Beadle # (0.1-0.6) Eos # (0.0-0.7) Baso # (0.0-2.0) K/mm3 Neutrophils % (Manual) (50.0-70.0) % Lymphocytes % (Manual) (22.0-35.0) % Monocytes % (Manual) (1.0-6.0) % Platelet Evaluation (NORMAL) Polychromasia Hypochromasia Anisocytosis (manual) Sodium (132-148) mmol/L Potassium (3.6-5.0) mmol/L Chloride (98-107) mmol/L Carbon Dioxide (21-33) mmol/L Anion Gap (10-20) BUN (7-21) mg/dL Creatinine (0.5-1.4) mg/dL Est GFR ( Amer) Est GFR (Non-Af Amer) Random Glucose (70-110) mg/dL Calcium (8.4-10.5) mg/dL Total Bilirubin (0.2-1.3) mg/dL AST (15-59) U/L ALT (7-56) U/L Alkaline Phosphatase (38-133) U/L Total Protein (5.8-8.3) g/dL Albumin (3.0-4.8) g/dL Globulin gm/dL Albumin/Globulin Ratio (1.1-1.8) Laboratory Results - last 24 hr 05/25/16 05/26/16 05/26/16 19:39 00:20 04:00 WBC 23.2 H 22.6 H 22.5 H RBC 3.49 L 3.41 L 3.67 Hgb 9.4 L 9.3 L 9.8 L Hct 29.3 L 28.7 L 31.5 L MCV 84.0 84.2 85.8 MCH 26.9 27.3 26.7 MCHC 32.1 32.4 31.1 RDW 16.6 H 16.6 H 17.5 H Plt Count 312 302 330 MPV 10.4 10.3 11.2 H Gran % Lymph % (Auto) Beadle % (Auto) Eos % (Auto) Baso % (Auto) Gran # Lymph # Beadle # Eos # Baso # Neutrophils % (Manual) 86 H 84 H Lymphocytes % (Manual) 8 L 6 L Monocytes % (Manual) 6 10 H Platelet Evaluation Normal Normal Polychromasia 1+ Hypochromasia 1+ 1+ Anisocytosis (manual) 1+ 1+ Sodium 135 Potassium 3.9 Chloride 100 Carbon Dioxide 29 Anion Gap 10 BUN 9 Creatinine 0.5 Est GFR ( Amer) > 60 Est GFR (Non-Af Amer) > 60 Random Glucose 109 Calcium 8.0 L Total Bilirubin 0.4 AST 34 ALT 21 Alkaline Phosphatase 63 Total Protein 5.7 L Albumin 2.6 L Globulin 3.1 Albumin/Globulin Ratio 0.8 L 05/26/16 07:30 WBC 24.8 H RBC 3.63 Hgb 9.7 L Hct 31.0 L MCV 85.4 MCH 26.7 MCHC 31.3 RDW 17.2 H Plt Count 319 MPV 10.5 Gran % 81.9 H Lymph % (Auto) 4.8 L Beadle % (Auto) 13.0 H Eos % (Auto) 0.2 L Baso % (Auto) 0.1 Gran # 20.27 H Lymph # 1.2 Beadle # 3.2 H Eos # 0.1 Baso # 0.02 Neutrophils % (Manual) Lymphocytes % (Manual) Monocytes % (Manual) Platelet Evaluation Polychromasia Hypochromasia Anisocytosis (manual) Sodium Potassium Chloride Carbon Dioxide Anion Gap BUN Creatinine Est GFR ( Amer) Est GFR (Non-Af Amer) Random Glucose Calcium Total Bilirubin AST ALT Alkaline Phosphatase Total Protein Albumin Globulin Albumin/Globulin Ratio Review of Systems - Review of Systems Systems not reviewed;Unavailable: Dementia - Constitutional Constitutional: absent: Fever Critical Care Progress Note - Ventilator Checklist DVT Prophylaxis: Yes - Nutrition Nutrition: Nutrition Category Date Time Status NPO Diet [DIET] Diets 05/26/16 Breakfast Ordered Assessment/Plan - Assessment and Plan (Free Text) Assessment: The patient is a 66 year old man with a history of developmental delay, iron deficiency anemia, and degenerative arthritis who was admitted to [facility] on with bilateral, non-reducible inguinal hernias and a CT-scan showing a large cecal mass, concerning for malignancy. As a result, he underwent an exploratory laparotomy and right hemicolectomy POD4(with pathology of cecal mass still pending). Because of the hemicolectomy, and the large size of the patients bilateral inguinal hernias could not be repaired during the procedure. Post- operatively, the patient developed marked leukocytosis (presumed to be secondary to post-op reactive atelectasis) which is being treated empirically with IV Cefepime and Flagyl by ID consult. In addition, recently, he developed intermittent rectal bleeding, which prompted a stat nuclear bleeding scan and CT -AP to be done late yesterday afternoon. The CT scan shows an incarcerated right hernia sac with secondary small bowel obstruction, which general surgery manually reduced but reccuring. The bleeding scan shows active bleeding most likely from the sigmoid colon. As a result of this active bleeding, the patient will be upgraded to the ICU for closer monitoring; especially given his age. He will be kept NPO with IVFs overnight and we will monitor CBCs Q4 hours. Neuro: Mental Retardation Maintain normothermia Pain control : Morphine, Ofirmev Ativan for anxiety CV: Hemodynamically stable Maintain MAP >65 IVF D5@70 f/u CBC q4hr, PT/PTT Pulm: Maintain Sp02>90 NC prn GI: Bloody BM NPO Protonix IV Hold PO meds Hold hepatin sub Q, colace GI on board Heme: 2PRBC given CBC q4h F/U PT PTT Transfuse if Hgb <8 Renal/: Hernia partially reduced bilaterally : recurrent On D5/1/2NS @70 Continue to monitor electrolytes will replace/replete as needed ID: Urine cx 05/16 : Proteus sentitive for cefetpime and Cipro Leukocystosis 22.5 today Silva- cultures pending Cefepime/Flagyl ID on board Endo: Maintain euglycemia GI ppx: PTX DVT ppx: SCDs Case seen, reviewed and discussed with attending <Javier Molina - Last Filed: 05/26/16 17:57> CCU Objective - Vital Signs / Intake & Output Vital Signs (Last 4 hours): Vital Signs Temp Pulse Resp BP 05/26/16 17:22 212 H 05/26/16 15:33 99.8 F H 115 H 26 H 80/30 L 05/26/16 14:29 142 H 118/40 L Intake and Output (Last 8hrs): Intake & Output 05/26/16 05/26/16 05/26/16 06:59 14:59 22:59 Intake Total 1140 0 300 Balance 1140 0 300 Intake: IV 1140 Left Forearm 1140 Blood Product 0 300 Red Blood Cells Cpd As1 0 Lr Unit [id number] Red Blood Cells Cp2d As3 0 300 Lr Unit [id number] Other: # Bowel Movements 3 - Medications Active Medications: Active Medications Generic Name Dose Route Start Last Admin Trade Name Lenq PRN Reason Stop Dose Admin Acetaminophen 650 mg 05/17/16 08:33 Tylenol 325mg Tab PO Q4H PRN FEVER, PAIN Docusate Sodium 100 mg 05/17/16 10:00 05/25/16 17:43 Colace PO 100 mg BID SHARIF Administration Famotidine 20 mg 05/20/16 22:00 05/25/16 21:34 Pepcid PO 20 mg HS SHARIF Administration Ferrous Sulfate 324 mg 05/17/16 10:00 05/25/16 09:55 Feosol PO 324 mg DAILY SHARIF Administration Potassium Chloride 20 meq/ 1,010 mls @ 70 mls/hr 05/23/16 15:45 05/26/16 01:30 Dextrose/Sodium Chloride IV 70 mls/hr .[id number] SHARIF Administration Metronidazole 100 mls @ 100 mls/hr 05/24/16 08:15 05/26/16 14:38 Flagyl IVPB 100 mls/hr Q8 SHARIF Administration Protocol Pantoprazole Sodium 100 mls @ 20 mls/hr 05/26/16 10:30 05/26/16 11:04 Protonix 40mg Ivpb IVPB 20 mls/hr .Q5H SHARIF Administration Fentanyl Citrate 100 mls @ 2 mls/hr 05/26/16 10:38 Fentanyl Citrate/Sodium Chloride 1 Mg/100 Ml IV .Q24H PRN TITRATE PER MD ORDER Protocol 20 MCG/HR Midazolam 100 mg/100ml in NS 100 mls @ 1 mls/hr 05/26/16 10:42 05/26/16 14:22 Midazolam 100 Mg/100ml In Ns IV 1 mls/hr .Q24H PRN Administration Pain, moderate (4-7) Protocol 1 MG/HR Propofol 100 mls @ 1.878 mls/hr 05/26/16 13:45 Diprivan IV .Q24H PRN TITRATE PER MD ORDER Protocol 5 MCG/KG/MIN Sodium Bicarbonate 75 meq/ 1,075 mls @ 100 mls/hr 05/26/16 14:30 05/26/16 17:29 Dextrose/Sodium Chloride IV 100 mls/hr .[id number] SHARIF Administration Norepinephrine Bitartrate 4 mg 254 mls @ 15.24 mls/hr 05/26/16 15:52 / Dextrose IV .[id number] PRN TITRATE PER MD ORDER Protocol 4 MCG/MIN Amiodarone HCl/Dextrose 200 mls @ 33.333 mls/hr 05/26/16 16:00 Nexterone 360 Mg In D5w 200 Ml (Premix) IV .Q6H SHARIF Protocol 1 MG/MIN Meropenem 1 gm/ Sodium 100 mls @ 100 mls/hr 05/26/16 17:00 Chloride IVPB 06/01/16 23:59 Q8 SHARIF Protocol Lorazepam 0.5 mg 05/17/16 12:00 05/26/16 09:31 Ativan IVP 0.5 mg Q6H PRN Administration Anxiety Protocol Morphine Sulfate 2 mg 05/26/16 03:23 05/26/16 03:48 Morphine IVP 2 mg Q4H PRN Administration Pain, moderate (4-7) Ondansetron HCl 4 mg 05/22/16 15:43 05/25/16 17:53 Zofran Inj IVP 4 mg Q4H PRN Administration Nausea/Vomiting Oxycodone/Acetaminophen 1 tab 05/25/16 09:47 05/25/16 09:55 Percocet 5/325 Mg Tab PO 05/28/16 09:48 1 tab Q6H PRN Administration Pain, severe (8-10) - Patient Studies Lab Studies: Microbiology Studies 05/24/16 09:10 Blood Culture - Preliminary Blood-Venous NO GROWTH AFTER 48 HOURS 05/24/16 09:00 Blood Culture - Preliminary Blood-Venous NO GROWTH AFTER 48 HOURS Lab Studies 05/26/16 05/26/16 05/26/16 Range/Units 16:52 15:49 14:15 WBC (4.5-11.0) 10^3/ul RBC (3.5-6.1) 10^6/uL Hgb (14.0-18.0) gm/dL Hct (42.0-52.0) % MCV (80.0-105.0) fL MCH (25.0-35.0) pg MCHC (31.0-37.0) g/dl RDW (11.5-14.5) % Plt Count (120.0-450.0) 10^3/uL MPV (7.0-11.0) fl Gran % (50.0-68.0) % Lymph % (Auto) (22.0-35.0) % Beadle % (Auto) (1.0-6.0) % Eos % (Auto) (1.5-5.0) % Baso % (Auto) (0.0-3.0) % Gran # (1.4-6.5) Lymph # (1.2-3.4) Beadle # (0.1-0.6) Eos # (0.0-0.7) Baso # (0.0-2.0) K/mm3 Neutrophils % (Manual) (50.0-70.0) % Lymphocytes % (Manual) (22.0-35.0) % Monocytes % (Manual) (1.0-6.0) % Platelet Evaluation (NORMAL) Polychromasia Hypochromasia Anisocytosis (manual) PT (9.9-11.8) Seconds INR (0.93-1.08) APTT (23.7-30.8) Seconds pCO2 57 H 53 H (35-45) mm/Hg pO2 46.0 L 36.0 L* (80-100) mm/Hg HCO3 16.1 L 17.2 L (21-28) mmol/L ABG pH 7.06 L* 7.12 L* (7.35-7.45) ABG Total CO2 17.8 L 18.8 L (22-28) mmol.L ABG O2 Saturation 76.3 L 60.3 L (95-98) % ABG Base Excess -14.5 L -12.0 L (-2.0-3.0) mmol/L ABG Potassium 3.3 L 4.0 (3.6-5.2) mmol/L Sodium 138.0 137.0 (132-148) mmol/L Chloride 113.0 H 114.0 H (98-107) mmol/L Glucose 123 H 145 H (75-110) mg/dl Lactate 8.1 H* 3.7 H (0.7-2.1) mmol/L FiO2 100.0 60.0 % Tidal Volume 400 PEEP 10 Potassium (3.6-5.0) mmol/L Carbon Dioxide (21-33) mmol/L Anion Gap (10-20) BUN (7-21) mg/dL Creatinine (0.5-1.4) mg/dL Est GFR ( Amer) Est GFR (Non-Af Amer) POC Glucose (mg/dL) 156 H (65-110) mg/dL Random Glucose (70-110) mg/dL Calcium (8.4-10.5) mg/dL Total Bilirubin (0.2-1.3) mg/dL AST (15-59) U/L ALT (7-56) U/L Alkaline Phosphatase (38-133) U/L Total Protein (5.8-8.3) g/dL Albumin (3.0-4.8) g/dL Globulin gm/dL Albumin/Globulin Ratio (1.1-1.8) Arterial Blood Potassium 3.3 L 4.0 (3.6-5.2) mmol/L Blood Type Antibody Screen Crossmatch BBK History Checked 05/26/16 05/26/16 05/26/16 Range/Units 11:30 07:30 04:00 WBC 21.2 H 24.8 H 22.5 H (4.5-11.0) 10^3/ul RBC 2.82 L 3.63 3.67 (3.5-6.1) 10^6/uL Hgb 7.6 L D 9.7 L 9.8 L (14.0-18.0) gm/dL Hct 24.3 L 31.0 L 31.5 L (42.0-52.0) % MCV 86.2 85.4 85.8 (80.0-105.0) fL MCH 27.0 26.7 26.7 (25.0-35.0) pg MCHC 31.3 31.3 31.1 (31.0-37.0) g/dl RDW 17.1 H 17.2 H 17.5 H (11.5-14.5) % Plt Count 295 319 330 (120.0-450.0) 10^3/uL MPV 10.1 10.5 11.2 H (7.0-11.0) fl Gran % 79.9 H 81.9 H (50.0-68.0) % Lymph % (Auto) 4.5 L 4.8 L (22.0-35.0) % Beadle % (Auto) 15.4 H 13.0 H (1.0-6.0) % Eos % (Auto) 0.2 L 0.2 L (1.5-5.0) % Baso % (Auto) 0.0 0.1 (0.0-3.0) % Gran # 16.91 H 20.27 H (1.4-6.5) Lymph # 1.0 L 1.2 (1.2-3.4) Beadle # 3.3 H 3.2 H (0.1-0.6) Eos # 0.0 0.1 (0.0-0.7) Baso # 0.01 0.02 (0.0-2.0) K/mm3 Neutrophils % (Manual) 84 H (50.0-70.0) % Lymphocytes % (Manual) 6 L (22.0-35.0) % Monocytes % (Manual) 10 H (1.0-6.0) % Platelet Evaluation Normal (NORMAL) Polychromasia Hypochromasia 1+ Anisocytosis (manual) 1+ PT 14.0 H (9.9-11.8) Seconds INR 1.30 H (0.93-1.08) APTT 30.3 (23.7-30.8) Seconds pCO2 (35-45) mm/Hg pO2 (80-100) mm/Hg HCO3 (21-28) mmol/L ABG pH (7.35-7.45) ABG Total CO2 (22-28) mmol.L ABG O2 Saturation (95-98) % ABG Base Excess (-2.0-3.0) mmol/L ABG Potassium (3.6-5.2) mmol/L Sodium 135 (132-148) mmol/L Chloride 100 (98-107) mmol/L Glucose (75-110) mg/dl Lactate (0.7-2.1) mmol/L FiO2 % Tidal Volume PEEP Potassium 3.9 (3.6-5.0) mmol/L Carbon Dioxide 29 (21-33) mmol/L Anion Gap 10 (10-20) BUN 9 (7-21) mg/dL Creatinine 0.5 (0.5-1.4) mg/dL Est GFR ( Amer) > 60 Est GFR (Non-Af Amer) > 60 POC Glucose (mg/dL) 138 H (65-110) mg/dL Random Glucose 109 (70-110) mg/dL Calcium 8.0 L (8.4-10.5) mg/dL Total Bilirubin 0.4 (0.2-1.3) mg/dL AST 34 (15-59) U/L ALT 21 (7-56) U/L Alkaline Phosphatase 63 (38-133) U/L Total Protein 5.7 L (5.8-8.3) g/dL Albumin 2.6 L (3.0-4.8) g/dL Globulin 3.1 gm/dL Albumin/Globulin Ratio 0.8 L (1.1-1.8) Arterial Blood Potassium (3.6-5.2) mmol/L Blood Type O POSITIVE Antibody Screen Negative Crossmatch See Detail BBK History Checked Patient has bt 05/26/16 05/25/16 Range/Units 00:20 19:39 WBC 22.6 H 23.2 H (4.5-11.0) 10^3/ul RBC 3.41 L 3.49 L (3.5-6.1) 10^6/uL Hgb 9.3 L 9.4 L (14.0-18.0) gm/dL Hct 28.7 L 29.3 L (42.0-52.0) % MCV 84.2 84.0 (80.0-105.0) fL MCH 27.3 26.9 (25.0-35.0) pg MCHC 32.4 32.1 (31.0-37.0) g/dl RDW 16.6 H 16.6 H (11.5-14.5) % Plt Count 302 312 (120.0-450.0) 10^3/uL MPV 10.3 10.4 (7.0-11.0) fl Gran % (50.0-68.0) % Lymph % (Auto) (22.0-35.0) % Beadle % (Auto) (1.0-6.0) % Eos % (Auto) (1.5-5.0) % Baso % (Auto) (0.0-3.0) % Gran # (1.4-6.5) Lymph # (1.2-3.4) Beadle # (0.1-0.6) Eos # (0.0-0.7) Baso # (0.0-2.0) K/mm3 Neutrophils % (Manual) 86 H (50.0-70.0) % Lymphocytes % (Manual) 8 L (22.0-35.0) % Monocytes % (Manual) 6 (1.0-6.0) % Platelet Evaluation Normal (NORMAL) Polychromasia 1+ Hypochromasia 1+ Anisocytosis (manual) 1+ PT (9.9-11.8) Seconds INR (0.93-1.08) APTT (23.7-30.8) Seconds pCO2 (35-45) mm/Hg pO2 (80-100) mm/Hg HCO3 (21-28) mmol/L ABG pH (7.35-7.45) ABG Total CO2 (22-28) mmol.L ABG O2 Saturation (95-98) % ABG Base Excess (-2.0-3.0) mmol/L ABG Potassium (3.6-5.2) mmol/L Sodium (132-148) mmol/L Chloride (98-107) mmol/L Glucose (75-110) mg/dl Lactate (0.7-2.1) mmol/L FiO2 % Tidal Volume PEEP Potassium (3.6-5.0) mmol/L Carbon Dioxide (21-33) mmol/L Anion Gap (10-20) BUN (7-21) mg/dL Creatinine (0.5-1.4) mg/dL Est GFR ( Amer) Est GFR (Non-Af Amer) POC Glucose (mg/dL) (65-110) mg/dL Random Glucose (70-110) mg/dL Calcium (8.4-10.5) mg/dL Total Bilirubin (0.2-1.3) mg/dL AST (15-59) U/L ALT (7-56) U/L Alkaline Phosphatase (38-133) U/L Total Protein (5.8-8.3) g/dL Albumin (3.0-4.8) g/dL Globulin gm/dL Albumin/Globulin Ratio (1.1-1.8) Arterial Blood Potassium (3.6-5.2) mmol/L Blood Type Antibody Screen Crossmatch BBK History Checked Laboratory Results - last 24 hr 05/25/16 05/26/16 05/26/16 19:39 00:20 04:00 WBC 23.2 H 22.6 H 22.5 H RBC 3.49 L 3.41 L 3.67 Hgb 9.4 L 9.3 L 9.8 L Hct 29.3 L 28.7 L 31.5 L MCV 84.0 84.2 85.8 MCH 26.9 27.3 26.7 MCHC 32.1 32.4 31.1 RDW 16.6 H 16.6 H 17.5 H Plt Count 312 302 330 MPV 10.4 10.3 11.2 H Gran % Lymph % (Auto) Beadle % (Auto) Eos % (Auto) Baso % (Auto) Gran # Lymph # Beadle # Eos # Baso # Neutrophils % (Manual) 86 H 84 H Lymphocytes % (Manual) 8 L 6 L Monocytes % (Manual) 6 10 H Platelet Evaluation Normal Normal Polychromasia 1+ Hypochromasia 1+ 1+ Anisocytosis (manual) 1+ 1+ PT INR APTT pCO2 pO2 HCO3 ABG pH ABG Total CO2 ABG O2 Saturation ABG Base Excess ABG Potassium Glucose Lactate FiO2 Tidal Volume PEEP Sodium 135 Potassium 3.9 Chloride 100 Carbon Dioxide 29 Anion Gap 10 BUN 9 Creatinine 0.5 Est GFR ( Amer) > 60 Est GFR (Non-Af Amer) > 60 POC Glucose (mg/dL) Random Glucose 109 Calcium 8.0 L Total Bilirubin 0.4 AST 34 ALT 21 Alkaline Phosphatase 63 Total Protein 5.7 L Albumin 2.6 L Globulin 3.1 Albumin/Globulin Ratio 0.8 L Arterial Blood Potassium Blood Type Antibody Screen Crossmatch BBK History Checked 05/26/16 05/26/16 05/26/16 07:30 11:30 14:15 WBC 24.8 H 21.2 H RBC 3.63 2.82 L Hgb 9.7 L 7.6 L D Hct 31.0 L 24.3 L MCV 85.4 86.2 MCH 26.7 27.0 MCHC 31.3 31.3 RDW 17.2 H 17.1 H Plt Count 319 295 MPV 10.5 10.1 Gran % 81.9 H 79.9 H Lymph % (Auto) 4.8 L 4.5 L [place]eadle % (Auto) 13.0 H 15.4 H Eos % (Auto) 0.2 L 0.2 L Baso % (Auto) 0.1 0.0 Gran # 20.27 H 16.91 H Lymph # 1.2 1.0 L Beadle # 3.2 H 3.3 H Eos # 0.1 0.0 Baso # 0.02 0.01 Neutrophils % (Manual) Lymphocytes % (Manual) Monocytes % (Manual) Platelet Evaluation Polychromasia Hypochromasia Anisocytosis (manual) PT 14.0 H INR 1.30 H APTT 30.3 pCO2 53 H pO2 36.0 L* HCO3 17.2 L ABG pH 7.12 L* ABG Total CO2 18.8 L ABG O2 Saturation 60.3 L ABG Base Excess -12.0 L ABG Potassium 4.0 Glucose 145 H Lactate 3.7 H FiO2 60.0 Tidal Volume PEEP Sodium 137.0 Potassium Chloride 114.0 H Carbon Dioxide Anion Gap BUN Creatinine Est GFR ( Amer) Est GFR (Non-Af Amer) POC Glucose (mg/dL) 138 H Random Glucose Calcium Total Bilirubin AST ALT Alkaline Phosphatase Total Protein Albumin Globulin Albumin/Globulin Ratio Arterial Blood Potassium 4.0 Blood Type O POSITIVE Antibody Screen Negative Crossmatch See Detail BBK History Checked Patient has bt 05/26/16 05/26/16 15:49 16:52 WBC RBC Hgb Hct MCV MCH MCHC RDW Plt Count MPV Gran % Lymph % (Auto) Beadle % (Auto) Eos % (Auto) Baso % (Auto) Gran # Lymph # Beadle # Eos # Baso # Neutrophils % (Manual) Lymphocytes % (Manual) Monocytes % (Manual) Platelet Evaluation Polychromasia Hypochromasia Anisocytosis (manual) PT INR APTT pCO2 57 H pO2 46.0 L HCO3 16.1 L ABG pH 7.06 L* ABG Total CO2 17.8 L ABG O2 Saturation 76.3 L ABG Base Excess -14.5 L ABG Potassium 3.3 L Glucose 123 H Lactate 8.1 H* FiO2 100.0 Tidal Volume 400 PEEP 10 Sodium 138.0 Potassium Chloride 113.0 H Carbon Dioxide Anion Gap BUN Creatinine Est GFR ( Amer) Est GFR (Non-Af Amer) POC Glucose (mg/dL) 156 H Random Glucose Calcium Total Bilirubin AST ALT Alkaline Phosphatase Total Protein Albumin Globulin Albumin/Globulin Ratio Arterial Blood Potassium 3.3 L Blood Type Antibody Screen Crossmatch BBK History Checked EKG/Cardiology Studies: Cardiology / EKG Studies 05/26/16 16:20 EKG [ELECTROCARDIOGRAM] Stat Comment: Reason For Exam: code Critical Care Progress Note - Nutrition Nutrition: Nutrition Category Date Time Status NPO Diet [DIET] Diets 05/26/16 Breakfast Ordered Addendum Addendum: 05/26/16 17:56 patient was seen, examined and discussed with Dr. Roger Britton. Agree with her note except as in my (Dr. Molina's) note
[2016-05-26] MEDS: Cefepime 1gm in NS 100ml 100 ML IVPB SCH (09:23)
[2016-05-26] MEDS ORDERED: Fentanyl 1000mcg/100ml NS 100 ML IV PRN (10:38)
[2016-05-26] MEDS: Pantoprazole 40mg/100ml IVPB 100 ML IVPB SCH ×2 (11:04→20:00)
[2016-05-26 11:35] LABS: ADD MANUAL DIFF? NO
[2016-05-26 11:38] LABS: BASO # 0.01 K/mm3 (0.0-2.0); EOS % 0.2 % (1.5-5.0); GRAN # 16.91 (1.4-6.5); GRAN % 79.9 % (50.0-68.0); HEMATOCRIT 24.3 % (42.0-52.0); LYMPH % 4.5 % (22.0-35.0); MEAN CELL VOLUME 86.2 fL (80.0-105.0); MEAN CORPUSCULAR HGB CONC 31.3 g/dl (31.0-37.0); MEAN PLATELET VOLUME 10.1 fl (7.0-11.0); MONO # 3.3 (0.1-0.6); MONO % 15.4 % (1.0-6.0); PLATELET COUNT 295 10^3/uL (120.0-450.0); RED CELL DISTRIBUTION WIDTH 17.1 % (11.5-14.5); WHITE BLOOD COUNT 21.2 10^3/ul (4.5-11.0)
[2016-05-26 11:49] LABS: INR 1.3 (0.93-1.08); PARTIAL THROMBOPLASTIN TIME 30.3 Seconds (23.7-30.8)
--- NOTE | 2016-05-26 12:25 | RAD ---
HISTORY: s/p intubated and NG tube COMPARISON: 05/24/2016 FINDINGS: LUNGS: No focal consolidation PLEURA: No significant pleural effusion identified, no pneumothorax apparent. CARDIOVASCULAR: Mild vascular congestion OSSEOUS STRUCTURES: No significant abnormalities. VISUALIZED UPPER ABDOMEN: Normal. OTHER FINDINGS: The endotracheal tube is in satisfactory position. The nasogastric tube is seen in the distal esophagus and should be advanced. IMPRESSION: Suboptimal position of nasogastric tube in the distal esophagus
--- NOTE | 2016-05-26 12:28 | RAD ---
HISTORY: gi bleed COMPARISON: No prior. FINDINGS: BOWEL: Normal. No obstruction. No free air. Mildly dilated loops of small bowel in the mid abdomen. Surgical clips on the right side of the pelvis BONES: Normal. OTHER FINDINGS: None. IMPRESSION: Mildly dilated small bowel loops
--- NOTE | 2016-05-26 12:30 | CON ---
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 At that time, the patient had an exploratory laparotomy for the cecal mass which was converted to right hemicolectomy. However, at that time bilateral hernia could not be repaired. Earlier last night, the patient started having bright red blood per rectum and borderline blood pressure. ICU consult was called and the patient was admitted to ICU after bleeding scan showed active bleed in the sigmoid area. PAST MEDICAL HISTORY: Anemia, mental retardation, dementia. ALLERGIES: NKDA. MEDICATIONS: Tylenol IV, Ativan p.r.n., Colace, normal saline with potassium, ferrous sulfate, Flagyl, cefepime, morphine p.r.n., Pepcid, Percocet p.r.n., Protonix drip, Versed drip and fentanyl drip. FAMILY HISTORY: Noncontributory. REVIEW OF SYSTEMS: Revealed 12 organ system other than mentioned in history of present illness is negative. PHYSICAL EXAMINATION: GENERAL: The patient currently is intubated, on PRVC 400/16/5/40. VITAL SIGNS: On that setting heart rate 112, blood pressure 120/68, oxygen saturation 99%. HEAD AND NECK: Atraumatic. LUNGS: Few crackles bilaterally. HEART: Regular rate and rhythm. S1, S2 normal. ABDOMEN: Soft, however bandage present and so exam was a bit difficult. However, surgical team at the bedside and performed thorough abdominal exam. NEUROLOGIC: The patient was moving all extremities before intubation. PSYCHIATRIC: The patient is very somnolent and unable to protect his airways. The patient is very poorly communicative prior to intubation. SKIN: Dry. LABORATORY DATA: WBC 24.8, hemoglobin 9.7, platelet count 319. Sodium 135, potassium 3.9, chloride 100, carbon dioxide 29, BUN 9, creatinine 0.5, glucose 109. AST 34, ALT 21. INR from 05/16 was 1.1. Bleeding scan from yesterday showed active gastrointestinal bleed, probably within sigmoid colon. Abdominal pelvic CAT scan revealed small-bowel obstruction proximal to the right hernia sac which contains dilated loops of small bowel. Findings are consistent with incarceration secondary to proximal bowel obstruction, status post right hemicolectomy with no abnormalities of consequence apparent at the anastomotic suture line, fluid, blood throughout the colon. ASSESSMENT AND PLAN: This is an 85-year-old gentleman with hemorrhagic shock due to massive lower GI bleed in the anastomotic area and superimposed upper GI bleed (EGD was done few weeks ago and based on my conversation with Dr. Luna --unlikley bleeding PUD is an etiology, but hemorrhagic gastritis is a possibility). At present time, we will proceed with ABC stabilization. The patient will be intubated. We will give 2 liters of normal saline for fluid resuscitation and then bicarb for maintainance fluid. We will trend lactic acid to gauge effectiveness of the resuscitation. We will maintain oxygen saturation more than 90%. We will keep the patient n.p.o. and put NG tube on suction. 4 units of blood, 4 units of FFP and 1 bag of platelets were ordered to avoid dilutional coagulopathy. Two large bore PIVs will be put in. CVC is in place. We will continue with serial CBC/BMP/ABG/coags/lactate/coags. We will avoid hypothermia--at present time patient is normothermic. Will start bicarb drip to avoid acidosis. Aspiration pneumonitis/pneumonia can not be ruled out--NGT suctioned out about 700 cc out of stomach prior to intubation, but some coffee ground matter was still present in hypopharynx during DL, which was also suctioned out. Will proceed with protective lung ventilation strategy ( Vt 6 cc/predicted body weight and Ppl<30) to avoid VILI ("double hit" hypothesis ), HOB>35, Protonix drip (for upper GI bleed), abx--ID service is following the patient and abx were upgraded to meropenem, flagyl and vanco. Will continue to target euvolemia, euglycemia, normothermia and oxygen saturation more than 90%. We will check CBC, CMP, lactic acid, chest x-ray, troponin level. We will continue with mechanical deep venous thrombosis prophylaxis (will avoid heparin in the setting of active bleed). I will transfuse PRBC to hemoglobin more than 9 as the patient is actively bleeding and is borderline hemodynamically. Surgical team is notified and Dr. Peterson is on his way. GI service is notified and aware. ccm time 40 min Javier Molina MD cc: [id number] TT: 05/26/2016 12:29:15 Confirmation # [id number] Dictation # [id number] jn MTDD
--- NOTE | 2016-05-26 12:35 | OP ---
PROCEDURE DATE: 05/26/2016 PROCEDURE: Right IJ CVC. INDICATION: IV therapy and hemodynamic monitoring. DESCRIPTION: After obtaining informed consent from lisaRadha, operational area was sterilized, maximum barrier precautions used, a right IJ was cannulated by modified sterile Seldinger technique. Guidewire removed. Hemostasis achieved. Sterile dressing applied. Blood loss minimal. Chest x- ray is pending. Javier Molina MD cc: [id number] TT: 05/26/2016 12:34:37 jn SHELL
--- NOTE | 2016-05-26 13:26 | PN ---
DATE: 05/26/2016 This 85-year-old male was examined at the bedside in critical care unit bed 1 in the presence of Dr. Molina, critical care metal rolling mill operator. We have reviewed his case in detail, which includes a bleeding scan from yesterday showing an active gastrointestinal bleed, probably within the colon secondary to bleeding at the anastomotic site. The patient also underwent an abdominal pelvic CAT scan that was reviewed that revealed small-bowel obstruction proximal to the right inguinal hernia sac which contains dilated loops of small bowel. Tthe patient is status post right hemicolectomy and no significant abnormalities were apparent at the anastomotic suture line. However fluid and blood were seen throughout the entire colon. The patient is status post a right hemicolectomy during exploratory laparotomy for cecal mass. His bilateral inguinal hernias were not repaired at the time of the laparotomy for fears of contamination; however, at that point in time the inguinal hernias were reduced. As of last night they recurred and a surgical team reduced them again. While in the intensive care unit today, the patient was electively intubated and noted to have coffee ground emesis and aspiration of the stomach contents. He now has an ET tube and NG tube which is draining guaiac positive coffee grounds. PHYSICAL EXAMINATION: VITAL SIGNS: Temperature was 97.4, respirations 16, pulse 96, blood pressure 132/73, pulse ox 96% on 40% FIO2. HEAD: Normocephalic, atraumatic. EYES: No icterus. NECK: Supple. HEART: Rapid S1, S2. LUNGS: With rhonchi and wheezing. ABDOMEN: With a surgical dressing and a binder in place. EXTREMITIES: No edema. SKIN: Without rash. PSYCHOLOGICAL: Sedated. VASCULAR: Legs warm to touch. LABORATORY DATA: White count 21,200, hemoglobin 7.6, hematocrit 24.3, platelets 295. PT/INR 1.30, PTT 30.3. Sodium 135, K 3.9, chloride 100, bicarbonate 29, BUN 9, creatinine 0.5, random blood sugar was 109, bilirubin 0.4 , AST 34, ALT 21, alkaline phosphatase 63, procalcitonin level 0.10 low. Blood and urine cultures from 05/24 no growth. Repeat chest x-ray done this morning showed mild vascular congestion, endotracheal tube in satisfactory position and nasogastric tube in distal esophagus, which requires it to be advanced. Abdominal x-ray this morning showed mildly dilated loops of small bowel in the mid abdomen. IMPRESSION: An 85-year-old male with a cecal mass status post resection and right hemicolectomy with comorbidities of mental retardation, inguinal hernias, postoperative gastrointestinal bleeding from both gastric and colonic sites, now with anemia and evolving hemorrhagic shock. PLAN: At the present time is to maintain intubation. The patient is receiving fluid resuscitation. He is receiving oxygen via ET tube and aspiration precautions. NG tube is placed to suction. Blood cell transfusion will be administered, blood transfusion will be aimed to maintain hemoglobin greater than 9. The patient will continue on IV antibiotics as per infectious disease. Currently Maxipime 1 gram IV q. 12 and Flagyl 500 mg IV q. 8. He continues on IV Protonix drip, Diprivan for sedation. He is receiving pulmonary toiletry with suctioning. The patient will be maintained n.p.o. He is being followed by Dr. Luna from gastroenterology, Dr. Alberto Peterson from surgery, Dr. Fuentes Victoria from infectious disease, Dr. Molina metal rolling mill operator, Dr. Edi Ayers from cardiology. His overall prognosis is guarded at present. He will receive aggressive supportive care. Greater than one hour was spent in the care, coordination of care and discussion of care for this patient in critical care today. His overall prognosis is guarded. Attempts to reach his nephew were unsuccessful to discuss further code status. Codi Pringle MD cc: [id number] TT: 05/26/2016 13:25:32 Confirmation # [id number] Dictation # [id number] jn MTDD
[2016-05-26] MEDS ORDERED: Metoprolol 1 mg/ml Inj IVP ONE (13:50)
--- NOTE | 2016-05-26 14:18 | PN ---
DATE: 05/26/2016 Seen and examined earlier this morning. The patient is in ICU. He was transferred yesterday. The patient had positive bleeding scan with active bleed on both sides of the pelvis, within the sigmoid colon. The patient is reported to be having bloody bowel movements. The patient this morning appears lethargic and congested. Earlier there were no reports of any hemetemesis, but later on called, the patient had coffee ground vomitus. The patient had NG tube inserted and is intubated. VITAL SIGNS: Last temperature is 97.4, blood pressure was 132/73, pulse 84, respirations 21, 96 nasal cannula. LABORATORY DATA: For this morning: WBC was 24.8, hemoglobin is 9.7 this was at 7:30, hematocrit 31.0, platelets of 319. Sodium 135, K 3.9, BUN 9, creatinine is 0.5. LFTs are within normal limits. IMAGING: He went for CT scan of abdomen and pelvis with oral contrast yesterday and that reported small-bowel obstruction proximal to the right hernia sac which contains dilated loops of the small bowel consistent with incarceration secondary to proximal bowel obstruction, shows status post right hemicolectomy with no abnormalities or consequence apparent at anastomotic suture line, shows high attenuation fluid, blood throughout the colon. PHYSICAL EXAMINATION: HEENT: Sclerae anicteric. NECK: Supple. CARDIAC: S1, S2. LUNGS: Sounds positive for rhonchi and few crackles. ABDOMEN: Soft with positive bandage. NEUROLOGIC: The patient appears lethargic, history of mental retardation, does not really answer questions. He is a poor historian, but this morning he was not really verbal. ASSESSMENT: This is an 85-year-old male with acute gastrointestinal bleed, status post bleeding scan showing bleeding in the pelvis and sigmoid colon. He has a history of bilateral inguinal hernia and cecal mass, status post exploratory laparotomy with right hemicolectomy and failed hernia repair, was having increasing leukocytosis. Went for a repeat CT scan, which is reporting bowel obstruction. The hernia is not able to be reduced. He has scrotal swelling. He does have a history of iron deficiency anemia which right now is secondary to active gastrointestinal bleed, status post coffee ground emesis, now intubated. PLAN: The patient is now on Protonix drip. He is getting IV antibiotics, Flagyl and cefepime. He is going to be transfused PRBC,FFP, and platelets, see orders. OGtube to LIS, monitor H/H, surgical follow up. We will continue to follow closely. The patient was seen and case discussed with Dr. Luna. Henrietta KIRBY cc: [id number] TT: 05/26/2016 14:17:28 Confirmation # [id number] Dictation # [id number] jn MTDD
[2016-05-26] MEDS: Midazolam 100 mg/100ml in NS 100 ML IV PRN (14:22)
[2016-05-26 14:53] LABS: ARTERIAL BLOOD GAS HCO3 17.2 mmol/L (21-28)
[2016-05-26 14:54] LABS: ARTERIAL BLOOD GAS PH 7.12 (7.35-7.45)
[2016-05-26] MEDS ORDERED: Vancomycin 1gm in NS 250ml 250 ML IVPB STA (15:17)
[2016-05-26] MEDS ORDERED: Sodium Chloride 0.9% 1,000 ML IV STA (15:18)
[2016-05-26] MEDS ORDERED: Amiodarone 360 mg/D5W 200 ml 200 ML IV SCH (16:00)
[2016-05-26] MEDS ORDERED: Amiodarone 150mg/3 ml vial ONE (16:05)
--- NOTE | 2016-05-26 16:21 | CP.PCM.PN ---
Subjective - Date & Time of Evaluation Date of Evaluation: 05/26/16 Time of Evaluation: 15:00 - Subjective Subjective: Infectious Disease Follow Up: May 26, 2016 85 yo male with initial presentation for abdominal pain and abnormal CT scan sent from [facility] facility (I think [facility]). 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 Currently the patient appears comfortable. He is unable to give any relevant information due to a severe developmental delay. Patient is currently post-operative day #4 and has been displaying increasing leukocytosis since the surgery. Patient himself is awake and alert and does not appear to be making any major complaints. Nursing reports BM but also blood in BM. He was brought to MICU this morning. He required intubation and ventilation. Signs of aspiration pneumonia. Will increase coverage to meropenem for now. Persistent leukocytosis. Patient in critical condition. Right IJ placed by MICU team. Case discussed with Dr. Pringle. Objective - Vital Signs/Intake and Output Vital Signs (last 24 hours): Temp Pulse Resp BP Pulse Ox 99.8 F H 115 H 26 H 80/30 L 96 05/26/16 15:33 05/26/16 15:33 05/26/16 15:33 05/26/16 15:33 05/26/16 11:17 Intake and Output: 05/26/16 05/26/16 06:59 18:59 Intake Total 1140 300 Balance 1140 300 - Medications Medications: Current Medications Acetaminophen (Tylenol 325mg Tab) 650 mg PO Q4H PRN PRN Reason: FEVER, PAIN Docusate Sodium (Colace) 100 mg PO BID [facility] Last Admin: 05/25/16 17:43 Dose: 100 mg Famotidine (Pepcid) 20 mg PO HS [facility] Last Admin: 05/25/16 21:34 Dose: 20 mg Ferrous Sulfate (Feosol) 324 mg PO DAILY [facility] Last Admin: 05/25/16 09:55 Dose: 324 mg Potassium Chloride 20 meq/ (Dextrose/Sodium Chloride) 1,010 mls @ 70 mls/hr IV .[id number] [facility] Last Admin: 05/26/16 01:30 Dose: 70 mls/hr Metronidazole (Flagyl) 100 mls @ 100 mls/hr IVPB Q8 SHARIF PRN Reason: Protocol Last Admin: 05/26/16 14:38 Dose: 100 mls/hr Cefepime HCl (Maxipime 1gm) 100 mls @ 100 mls/hr IVPB Q12 SHARIF PRN Reason: Protocol Last Admin: 05/26/16 09:23 Dose: 100 mls/hr Pantoprazole Sodium (Protonix 40mg Ivpb) 100 mls @ 20 mls/hr IVPB .Q5H SHARIF Last Admin: 05/26/16 11:04 Dose: 20 mls/hr Fentanyl Citrate (Fentanyl Citrate/Sodium Chloride 1 Mg/100 Ml) 100 mls @ 2 mls /hr IV .Q24H PRN; Protocol; 20 MCG/HR PRN Reason: TITRATE PER MD ORDER Midazolam 100 mg/100ml in NS (Midazolam 100 Mg/100ml In Ns) 100 mls @ 1 mls/hr IV .Q24H PRN; Protocol; 1 MG/HR PRN Reason: Pain, moderate (4-7) Last Admin: 05/26/16 14:22 Dose: 1 mls/hr Propofol (Diprivan) 100 mls @ 1.878 mls/hr IV .Q24H PRN; Protocol; 5 MCG/KG/MIN PRN Reason: TITRATE PER MD ORDER Sodium Bicarbonate 75 meq/ (Dextrose/Sodium Chloride) 1,075 mls @ 100 mls/hr IV .[id number] SHARIF Vancomycin HCl (Vancomycin 1gm) 250 mls @ 167 mls/hr IVPB STAT STA PRN Reason: Protocol Stop: 05/26/16 16:46 Sodium Chloride (Sodium Chloride 0.9%) 1,000 mls @ 999 mls/hr IV .Q1H1M STA Stop: 05/26/16 16:18 Norepinephrine Bitartrate 4 mg (/ Dextrose) 254 mls @ 15.24 mls/hr IV .[id number] PRN; Protocol; 4 MCG/MIN PRN Reason: TITRATE PER MD ORDER Lorazepam (Ativan) 0.5 mg IVP Q6H PRN; Protocol PRN Reason: Anxiety Last Admin: 05/26/16 09:31 Dose: 0.5 mg Morphine Sulfate (Morphine) 2 mg IVP Q4H PRN PRN Reason: Pain, moderate (4-7) Last Admin: 05/26/16 03:48 Dose: 2 mg Ondansetron HCl (Zofran Inj) 4 mg IVP Q4H PRN PRN Reason: Nausea/Vomiting Last Admin: 05/25/16 17:53 Dose: 4 mg Oxycodone/Acetaminophen (Percocet 5/325 Mg Tab) 1 tab PO Q6H PRN PRN Reason: Pain, severe (8-10) Stop: 05/28/16 09:48 Last Admin: 05/25/16 09:55 Dose: 1 tab - Labs Labs: 05/26/16 11:30 05/26/16 04:00 PT 14.0 Seconds (9.9-11.8) H 05/26/16 11:30 INR 1.30 (0.93-1.08) H 05/26/16 11:30 APTT 30.3 Seconds (23.7-30.8) 05/26/16 11:30 - Constitutional Appears: Toxic, Chronically Ill - Head Exam Head Exam: NORMOCEPHALIC Additional comments: intubated and ventilated - Eye Exam Eye Exam: EOMI, PERRL Pupil Exam: NORMAL ACCOMODATION, PERRL - ENT Exam ENT Exam: Mucous Membranes Moist, Normal External Ear Exam, TM's Normal Bilaterally - Neck Exam Neck Exam: Full ROM, Normal Inspection - Respiratory Exam Respiratory Exam: Clear to Ausculation Bilateral, NORMAL BREATHING PATTERN. absent: Rales, Rhonchi, Wheezes - Cardiovascular Exam Cardiovascular Exam: REGULAR RHYTHM, RRR, +S1, +S2 - GI/Abdominal Exam GI & Abdominal Exam: Soft, Normal Bowel Sounds. absent: Distended, Tenderness - Extremities Exam Extremities Exam: Full ROM, Normal Inspection - Neurological Exam Neurological Exam: absent: Alert, Awake Additional comments: Intubated and ventilated. - Psychiatric Exam Psychiatric exam: Normal Affect, Normal Mood - Skin Skin Exam: Intact, Normal Color Assessment and Plan - Assessment and Plan (Free Text) Assessment: 85 yo male with cecal mass and bilateral hernia had exploratory laparotomy with right hemicolectomy. The patient is unable to give any significant information when speaking with him. He is not complaining of pain. The patient had a sudden rise in his leukocytosis to 21.3 to 25.6 and now at 21.2 today. There is a mild left shift to the leukocytosis. Supportive care. Silva cultures sent. Had Proteus in urine culture over a week ago but more recent urine culture is negative for growth. Currently on Cefepime and Flagyl for antibiotic coverage. Supportive care. CT Scan results noted with small bowel obstruction proximal to the right hernia sac containing dilated loops of small bowel. Findings consistent with incarceration and secondary proximal bowel obstruction. GI bleeding scan showing active bleed on both sides of the pelvis probably within the sigmoid colon. Surgery aware of findings. Transferred to MICU and required intubation and ventilation. Will escalate antibiotics to Meropenem from Cefepime for now. Awaiting repeat cultures. Await to see if any further surgical interventions. Possible aspiration pneumonia. Thank you for allowing me to participate in the care of the patient, we will follow with you.
--- NOTE | 2016-05-26 16:27 | CP.PCM.PN ---
Subjective - Date & Time of Evaluation Date of Evaluation: 05/26/16 Time of Evaluation: 15:55 Objective - Vital Signs/Intake and Output Vital Signs (last 24 hours): Temp Pulse Resp BP Pulse Ox 99.8 F H 115 H 26 H 80/30 L 96 05/26/16 15:33 05/26/16 15:33 05/26/16 15:33 05/26/16 15:33 05/26/16 11:17 Intake and Output: 05/26/16 05/26/16 06:59 18:59 Intake Total 1140 300 Balance 1140 300 - Medications Medications: Current Medications Acetaminophen (Tylenol 325mg Tab) 650 mg PO Q4H PRN PRN Reason: FEVER, PAIN Docusate Sodium (Colace) 100 mg PO BID [facility] Last Admin: 05/25/16 17:43 Dose: 100 mg Famotidine (Pepcid) 20 mg PO HS [facility] Last Admin: 05/25/16 21:34 Dose: 20 mg Ferrous Sulfate (Feosol) 324 mg PO DAILY [facility] Last Admin: 05/25/16 09:55 Dose: 324 mg Potassium Chloride 20 meq/ (Dextrose/Sodium Chloride) 1,010 mls @ 70 mls/hr IV .[id number] [facility] Last Admin: 05/26/16 01:30 Dose: 70 mls/hr Metronidazole (Flagyl) 100 mls @ 100 mls/hr IVPB Q8 SHARIF PRN Reason: Protocol Last Admin: 05/26/16 14:38 Dose: 100 mls/hr Cefepime HCl (Maxipime 1gm) 100 mls @ 100 mls/hr IVPB Q12 SHARIF PRN Reason: Protocol Last Admin: 05/26/16 09:23 Dose: 100 mls/hr Pantoprazole Sodium (Protonix 40mg Ivpb) 100 mls @ 20 mls/hr IVPB .Q5H [facility] Last Admin: 05/26/16 11:04 Dose: 20 mls/hr Fentanyl Citrate (Fentanyl Citrate/Sodium Chloride 1 Mg/100 Ml) 100 mls @ 2 mls /hr IV .Q24H PRN; Protocol; 20 MCG/HR PRN Reason: TITRATE PER MD ORDER Midazolam 100 mg/100ml in NS (Midazolam 100 Mg/100ml In Ns) 100 mls @ 1 mls/hr IV .Q24H PRN; Protocol; 1 MG/HR PRN Reason: Pain, moderate (4-7) Last Admin: 05/26/16 14:22 Dose: 1 mls/hr Propofol (Diprivan) 100 mls @ 1.878 mls/hr IV .Q24H PRN; Protocol; 5 MCG/KG/MIN PRN Reason: TITRATE PER MD ORDER Sodium Bicarbonate 75 meq/ (Dextrose/Sodium Chloride) 1,075 mls @ 100 mls/hr IV .[id number] SHARIF Vancomycin HCl (Vancomycin 1gm) 250 mls @ 167 mls/hr IVPB STAT STA PRN Reason: Protocol Stop: 05/26/16 16:46 Norepinephrine Bitartrate 4 mg (/ Dextrose) 254 mls @ 15.24 mls/hr IV .[id number] PRN; Protocol; 4 MCG/MIN PRN Reason: TITRATE PER MD ORDER Amiodarone HCl/Dextrose (Nexterone 360 Mg In D5w 200 Ml (Premix)) 200 mls @ 33.333 mls/hr IV .Q6H SHARIF; 1 MG/MIN PRN Reason: Protocol Lorazepam (Ativan) 0.5 mg IVP Q6H PRN; Protocol PRN Reason: Anxiety Last Admin: 05/26/16 09:31 Dose: 0.5 mg Morphine Sulfate (Morphine) 2 mg IVP Q4H PRN PRN Reason: Pain, moderate (4-7) Last Admin: 05/26/16 03:48 Dose: 2 mg Ondansetron HCl (Zofran Inj) 4 mg IVP Q4H PRN PRN Reason: Nausea/Vomiting Last Admin: 05/25/16 17:53 Dose: 4 mg Oxycodone/Acetaminophen (Percocet 5/325 Mg Tab) 1 tab PO Q6H PRN PRN Reason: Pain, severe (8-10) Stop: 05/28/16 09:48 Last Admin: 05/25/16 09:55 Dose: 1 tab - Labs Labs: 05/26/16 11:30 05/26/16 04:00 PT 14.0 Seconds (9.9-11.8) H 05/26/16 11:30 INR 1.30 (0.93-1.08) H 05/26/16 11:30 APTT 30.3 Seconds (23.7-30.8) 05/26/16 11:30
[2016-05-26 16:55] LABS: ARTERIAL BLOOD GAS HCO3 16.1 mmol/L (21-28); ATERIAL BLOOD GAS PEEP 10
--- NOTE | 2016-05-26 17:05 | RAD ---
HISTORY: code sheila COMPARISON: 05/26/2016 at 11:38 a.m. FINDINGS: LUNGS: Extensive right upper and left perihilar pulmonary opacity is new since earlier examination of the same date. Possible pulmonary edema. Less likely bilateral pneumonia. Please correlate. PLEURA: Small right pleural effusion. No evidence of left pleural effusion. No pneumothorax. CARDIOVASCULAR: Normal heart size. ET tube, NG tube and right IJ central venous catheter are all noted. The nasogastric tube tip has been advanced to the left upper quadrant of the abdomen. OSSEOUS STRUCTURES: No significant abnormalities. VISUALIZED UPPER ABDOMEN: Normal. OTHER FINDINGS: None. IMPRESSION: Extensive right upper and left perihilar opacity new since earlier examination of the same date. Possible pulmonary edema. Nasogastric tube is now in satisfactory position.
[2016-05-26 17:10] LABS: ARTERIAL BLOOD GAS PH 7.06 (7.35-7.45)
[2016-05-26] MEDS: Sodium Bicarbonate 8.4% 75 MEQ in Dextrose 5%/0.45% NS 1,000 ML IV SCH (17:29)
--- NOTE | 2016-05-26 17:37 | CP.PCM.PN ---
Subjective - Date & Time of Evaluation Date of Evaluation: 05/26/16 Time of Evaluation: 17:33 - Subjective Subjective: Surgery: Dr. Peterson Pt seen and examined. Pt was transferred to ICU overnight for episodes of BRBPR and clots. This persisted through the day and was accompanied by coffee ground emesis. Pt became tachycardic and tachypnic and was subsequently intubated. Transfusion of blood products was initiated. Bleeding scan from 05/25/16 showed bleeding on R and L side of pelvis. Objective - Vital Signs/Intake and Output Vital Signs (last 24 hours): Temp Pulse Resp BP Pulse Ox 99.8 F H 115 H 26 H 80/30 L 96 05/26/16 15:33 05/26/16 15:33 05/26/16 15:33 05/26/16 15:33 05/26/16 11:17 Intake and Output: 05/26/16 05/26/16 06:59 18:59 Intake Total 1140 300 Balance 1140 300 - Medications Medications: Current Medications Acetaminophen (Tylenol 325mg Tab) 650 mg PO Q4H PRN PRN Reason: FEVER, PAIN Docusate Sodium (Colace) 100 mg PO BID [facility] Last Admin: 05/25/16 17:43 Dose: 100 mg Famotidine (Pepcid) 20 mg PO HS [facility] Last Admin: 05/25/16 21:34 Dose: 20 mg Ferrous Sulfate (Feosol) 324 mg PO DAILY [facility] Last Admin: 05/25/16 09:55 Dose: 324 mg Potassium Chloride 20 meq/ (Dextrose/Sodium Chloride) 1,010 mls @ 70 mls/hr IV .[id number] [facility] Last Admin: 05/26/16 01:30 Dose: 70 mls/hr Metronidazole (Flagyl) 100 mls @ 100 mls/hr IVPB Q8 [facility]AR[facility] PRN Reason: Protocol Last Admin: 05/26/16 14:38 Dose: 100 mls/hr Pantoprazole Sodium (Protonix 40mg Ivpb) 100 mls @ 20 mls/hr IVPB .Q5H [facility] Last Admin: 05/26/16 11:04 Dose: 20 mls/hr Fentanyl Citrate (Fentanyl Citrate/Sodium Chloride 1 Mg/100 Ml) 100 mls @ 2 mls /hr IV .Q24H PRN; Protocol; 20 MCG/HR PRN Reason: TITRATE PER MD ORDER Midazolam 100 mg/100ml in NS (Midazolam 100 Mg/100ml In Ns) 100 mls @ 1 mls/hr IV .Q24H PRN; Protocol; 1 MG/HR PRN Reason: Pain, moderate (4-7) Last Admin: 05/26/16 14:22 Dose: 1 mls/hr Propofol (Diprivan) 100 mls @ 1.878 mls/hr IV .Q24H PRN; Protocol; 5 MCG/KG/MIN PRN Reason: TITRATE PER MD ORDER Sodium Bicarbonate 75 meq/ (Dextrose/Sodium Chloride) 1,075 mls @ 100 mls/hr IV .[id number] [facility] Norepinephrine Bitartrate 4 mg (/ Dextrose) 254 mls @ 15.24 mls/hr IV .[id number] PRN; Protocol; 4 MCG/MIN PRN Reason: TITRATE PER MD ORDER Amiodarone HCl/Dextrose (Nexterone 360 Mg In D5w 200 Ml (Premix)) 200 mls @ 33.333 mls/hr IV .Q6H SHARIF; 1 MG/MIN PRN Reason: Protocol Meropenem 1 gm/ Sodium (Chloride) 100 mls @ 100 mls/hr IVPB Q8 SHARIF PRN Reason: Protocol Stop: 06/01/16 23:59 Lorazepam (Ativan) 0.5 mg IVP Q6H PRN; Protocol PRN Reason: Anxiety Last Admin: 05/26/16 09:31 Dose: 0.5 mg Morphine Sulfate (Morphine) 2 mg IVP Q4H PRN PRN Reason: Pain, moderate (4-7) Last Admin: 05/26/16 03:48 Dose: 2 mg Ondansetron HCl (Zofran Inj) 4 mg IVP Q4H PRN PRN Reason: Nausea/Vomiting Last Admin: 05/25/16 17:53 Dose: 4 mg Oxycodone/Acetaminophen (Percocet 5/325 Mg Tab) 1 tab PO Q6H PRN PRN Reason: Pain, severe (8-10) Stop: 05/28/16 09:48 Last Admin: 05/25/16 09:55 Dose: 1 tab - Labs Labs: 05/26/16 11:30 05/26/16 04:00 PT 14.0 Seconds (9.9-11.8) H 03/10/17 11:30 INR 1.30 (0.93-1.08) H 05/26/16 11:30 APTT 30.3 Seconds (23.7-30.8) 05/26/16 11:30 - Constitutional Appears: In Acute Distress - Head Exam Head Exam: ATRAUMATIC, NORMOCEPHALIC - Eye Exam Eye Exam: EOMI - ENT Exam ENT Exam: Normal External Ear Exam - Respiratory Exam Respiratory Exam: Accessory Muscle Use, Respiratory Distress - Cardiovascular Exam Cardiovascular Exam: Tachycardia - GI/Abdominal Exam GI & Abdominal Exam: Soft. absent: Distended, Firm, Guarding, Rigid, Tenderness Additional comments: midline incision c/d/i w. fabiana Large B/L inguinal hernia - Rectal Exam Additional comments: bright red blood and clots - Extremities Exam Extremities Exam: Calf Tenderness. absent: Pedal Edema - Neurological Exam Neurological Exam: Alert, Awake - Skin Skin Exam: Diaphoretic, Pallor Assessment and Plan - Assessment and Plan (Free Text) Assessment: 85M w. B/L inguinal hernias and cecal mass, s/p ex-lap w. R hemicolectomy, POD# 4 now w. GI bleed -GI bleed likely from anastomosis site vs. sigmoid -continue w. transfusion of blood products PRN -serial labs -if pt does not stabilize will plan for OR -Call and message was left w. next of kin Servando Potter at [phone] -case d/w Dr. Nicholas Minor PGY2
[2016-05-26 18:35] LABS: MEAN CELL VOLUME 91.1 fL (80.0-105.0); MEAN CORPUSCULAR HEMOGLOBIN 29.5 pg (25.0-35.0); MEAN CORPUSCULAR HGB CONC 32.4 g/dl (31.0-37.0); MEAN PLATELET VOLUME 10.8 fl (7.0-11.0); PLATELET COUNT 187 10^3/uL (120.0-450.0); RED CELL DISTRIBUTION WIDTH 16.2 % (11.5-14.5)
[2016-05-26 18:37] LABS: ADD MANUAL DIFF? YES
--- NOTE | 2016-05-26 18:38 | PROCN ---
DATE: 05/26/2016 PROCEDURE: Arterial line placement in the left axillary artery. INDICATIONS: Hemodynamic monitoring and frequent ABG's. The procedure was emergent as the patient deteriorated quickly. Unable to reach family. The operational area was sterilized. Maximum barrier precautions used. The left axillary artery was cannulated by sterile seldinger technique. Guidewire removed. Hemostasis achieved. Sterile dressing applied. The patient tolerated procedure well. Blood loss was minimal. Javier Molina MD cc: [id number] TT: 05/26/2016 18:38:11 Confirmation # [id number] Dictation # [id number] ashwini GOFF
--- NOTE | 2016-05-26 19:26 | PN ---
DATE: 05/26/2016 This patient was seen and evaluated earlier. Multiple discussions had with the hammerer tab and also with Dr. Peterson. The patient's nuclear medicine scan was reviewed and discussed with also Dr. Rosario,radiologist. The careful review of the nuclear medicine scan revealed that initial uptake is in the right side colon probable anastamosis area.. Progressively, the uptake increased to the left colon more , suggestive of the bleeding from the right side and that the pooling of the blood accumulates in the left colon. The patient does have abdominal x-ray also reviewed, shows multiple small bowel dilated loops suggestive of small bowel obstruction. NG tube was placed, draining dark fluid? feculant. The patient was intubated. PHYSICAL EXAMINATION: ABDOMEN: Distended. NG tube in place, on vent.Abdomen softly distended, Right inguinoscrotal hernia present. The patient is receiving transfusions. PLAN: To monitor closely the hemoglobin and hematocrit and transfuse. Continue the IV antibiotics. Close surgical followup. Flexible sigmoidoscopy at the present time will not be helpful because the left colon has mainly pooled blood. The patient did have an upper gastrointestinal endoscopy done only 6 weeks ago, diminutive arteriovenous malformations, which was cauterized. No ulcerations were noticed. We will empirically continue the proton pump inhibitor. Overall prognosis of the patient is guarded. We will continue to closely follow up his care and suggest further management based on the clinical course. Ann Luna MD cc: [id number] TT: 05/26/2016 19:25:46 Confirmation # [id number] Dictation # [id number] en MTDD
[2016-05-26] MEDS: Meropenem 1 GM in Sodium Chloride 0.9% 100 ML IVPB SCH ×2 (19:30→21:55)
[2016-05-26 20:19] LABS: ARTERIAL BLOOD GAS HCO3 22.1 mmol/L (21-28); ARTERIAL BLOOD GAS PH 7.35 (7.35-7.45)
[2016-05-26 20:31] LABS: INR 1.35 (0.93-1.08); PARTIAL THROMBOPLASTIN TIME 26.5 Seconds (23.7-30.8)
[2016-05-26 20:43] LABS: HEMATOCRIT 38.4 % (42.0-52.0); MEAN CELL VOLUME 89.5 fL (80.0-105.0); MEAN CORPUSCULAR HEMOGLOBIN 29.4 pg (25.0-35.0); MEAN CORPUSCULAR HGB CONC 32.8 g/dl (31.0-37.0); PLATELET COUNT 168 10^3/uL (120.0-450.0); WHITE BLOOD COUNT 20.3 10^3/ul (4.5-11.0)
[2016-05-26 23:05] LABS: NEUTROPHIL 60 % (50.0-70.0)
[2016-05-26 23:07] LABS: ATYPICAL LYMPHOCYTE 8 % (0.0-0.0); BAND 18 % (0-2); EOSINOPHIL 1 % (0.0-3.0); METAMYELOCYTE 2 %
[2016-05-26 23:08] LABS: PLATELET ESTIMATE NORMAL (NORMAL)
[2016-05-26 23:08] LABS: ADD MANUAL DIFF? NO
[2016-05-27 00:19] LABS: BLOOD UREA NITROGEN 18 mg/dL (7-21); CARBON DIOXIDE 29 mmol/L (21-33); CHLORIDE 105 mmol/L (98-107); GFR AFRICAN-AMERICAN > 60; GLUCOSE,RANDOM 106 mg/dL (70-110); POTASSIUM 3.1 mmol/L (3.6-5.0); SODIUM 141 mmol/L (132-148)
[2016-05-27 00:20] LABS: ALKALINE PHOSPHATASE 47 U/L (38-133); ALT/SGPT 50 U/L (7-56); AST/SGOT 80 U/L (15-59); BILIRUBIN,TOTAL 2.1 mg/dL (0.2-1.3); CALCIUM 7.1 mg/dL (8.4-10.5); MAGNESIUM 1.5 mg/dL (1.7-2.2); PHOSPHOROUS 1.8 mg/dL (2.5-4.5)
[2016-05-27] MEDS ORDERED: Magnesium Sulfate 2 GM in Sodium Chloride 0.9% 100 ML IVPB ONE (00:49)
[2016-05-27] MEDS: Pantoprazole 40mg/100ml IVPB 100 ML IVPB SCH ×4 (01:00→20:45)
[2016-05-27] MEDS: Potassium Chloride 20 mEq 100 ML IVPB SCH ×2 (01:13→03:00)
[2016-05-27 01:55] LABS: BASO # 0.03 K/mm3 (0.0-2.0); BASO % 0.1 % (0.0-3.0); GRAN # 18.04 (1.4-6.5); GRAN % 87.3 % (50.0-68.0); HEMATOCRIT 33.6 % (42.0-52.0); LYMPH # 1.1 (1.2-3.4); LYMPH % 5.1 % (22.0-35.0); MEAN CELL VOLUME 88.9 fL (80.0-105.0); MEAN CORPUSCULAR HEMOGLOBIN 29.6 pg (25.0-35.0); MEAN CORPUSCULAR HGB CONC 33.3 g/dl (31.0-37.0); MEAN PLATELET VOLUME 10.7 fl (7.0-11.0); MONO # 1.5 (0.1-0.6); MONO % 7.5 % (1.0-6.0); PLATELET COUNT 181 10^3/uL (120.0-450.0)
[2016-05-27 01:56] LABS: WHITE BLOOD COUNT 20.7 10^3/ul (4.5-11.0)
[2016-05-27 02:41] LABS: VENOUS BLOOD GAS BASE EXCESS 0.3 mmol/L (0.0-2.0); VENOUS BLOOD PH 7.42 (7.32-7.43)
[2016-05-27] MEDS: Sodium Bicarbonate 8.4% 75 MEQ in Dextrose 5%/0.45% NS 1,000 ML IV SCH (04:47)
[2016-05-27 04:57] LABS: ADD MANUAL DIFF? NO
[2016-05-27] MEDS: metroNIDAZOLE IV 500 mg/100 ml 100 ML IVPB SCH ×3 (05:02→21:45)
[2016-05-27] MEDS: Meropenem 1 GM in Sodium Chloride 0.9% 100 ML IVPB SCH ×3 (05:03→21:49)
[2016-05-27 05:12] LABS: INR 1.39 (0.93-1.08); PARTIAL THROMBOPLASTIN TIME 30.4 Seconds (23.7-30.8)
[2016-05-27 05:27] LABS: BASO # 0.02 K/mm3 (0.0-2.0); BASO % 0.1 % (0.0-3.0); GRAN # 23.92 (1.4-6.5); GRAN % 89.4 % (50.0-68.0); HEMATOCRIT 34.9 % (42.0-52.0); LYMPH # 0.8 (1.2-3.4); LYMPH % 3.1 % (22.0-35.0); MEAN CELL VOLUME 88.6 fL (80.0-105.0); MEAN CORPUSCULAR HEMOGLOBIN 29.2 pg (25.0-35.0); MEAN PLATELET VOLUME 10.5 fl (7.0-11.0); MONO % 7.4 % (1.0-6.0); PLATELET COUNT 205 10^3/uL (120.0-450.0); RED CELL DISTRIBUTION WIDTH 16.1 % (11.5-14.5)
[2016-05-27 05:28] LABS: ALKALINE PHOSPHATASE 46 U/L (38-133); ALT/SGPT 56 U/L (7-56); AST/SGOT 105 U/L (15-59); BILIRUBIN,TOTAL 1.7 mg/dL (0.2-1.3); BLOOD UREA NITROGEN 20 mg/dL (7-21); CALCIUM 7.2 mg/dL (8.4-10.5); CARBON DIOXIDE 28 mmol/L (21-33); CHLORIDE 107 mmol/L (98-107); GFR AFRICAN-AMERICAN > 60; GLUCOSE,RANDOM 102 mg/dL (70-110); POTASSIUM 3.8 mmol/L (3.6-5.0); SODIUM 143 mmol/L (132-148); TOTAL PROTEIN 5.1 g/dL (5.8-8.3); WHITE BLOOD COUNT 26.8 10^3/ul (4.5-11.0)
[2016-05-27 05:54] LABS: ADD MANUAL DIFF? NO
[2016-05-27 06:27] LABS: ARTERIAL BLOOD GAS HCO3 24.6 mmol/L (21-28); ARTERIAL BLOOD GAS O2 CAPACITY 13.6 mL/dl (16-24); ARTERIAL BLOOD GAS O2 CONTENT 13.3 ML/dl (15-23); ARTERIAL BLOOD GAS PH 7.43 (7.35-7.45); ARTERIAL BLOOD HGB O2 SAT 95.7 % (95.0-98.0); CARBOXYHEMOGLOBIN 1.9 % (0.5-1.5); HHB 2.3 % (0-5); METHEMOGLOBIN 0.1 % (0.0-3.0)
--- NOTE | 2016-05-27 07:56 | CP.PCM.PN ---
Subjective - Date & Time of Evaluation Date of Evaluation: 05/27/16 Time of Evaluation: 07:52 - Subjective Subjective: Surgery for Dr. Peterson Pt s&e. Pt intubated and sedated. Transfused 6PRBC, 4FFP, 1 plt yesterday. Melena present. 1L Coffee ground fluid /24hrs. Objective - Vital Signs/Intake and Output Vital Signs (last 24 hours): Temp Pulse Resp BP Pulse Ox 99 F 117 H 45 H 153/95 H 96 05/27/16 05:00 05/27/16 07:17 05/27/16 00:21 05/27/16 07:01 05/27/16 07:17 Intake and Output: 05/27/16 05/27/16 06:59 18:59 Intake Total 2669 Output Total 450 Balance 2219 - Medications Medications: Current Medications Acetaminophen (Tylenol 325mg Tab) 650 mg PO Q4H PRN PRN Reason: FEVER, PAIN Docusate Sodium (Colace) 100 mg PO BID [facility] Last Admin: 05/25/16 17:43 Dose: 100 mg Famotidine (Pepcid) 20 mg PO HS [facility] Last Admin: 05/25/16 21:34 Dose: 20 mg Ferrous Sulfate (Feosol) 324 mg PO DAILY [facility] Last Admin: 05/25/16 09:55 Dose: 324 mg Potassium Chloride 20 meq/ (Dextrose/Sodium Chloride) 1,010 mls @ 70 mls/hr IV .[id number] [facility] Last Admin: 05/26/16 01:30 Dose: 70 mls/hr Metronidazole (Flagyl) 100 mls @ 100 mls/hr IVPB Q8 SHARIF PRN Reason: Protocol Last Admin: 05/27/16 05:02 Dose: 100 mls/hr Pantoprazole Sodium (Protonix 40mg Ivpb) 100 mls @ 20 mls/hr IVPB .Q5H [facility] Last Admin: 05/27/16 05:40 Dose: 20 mls/hr Fentanyl Citrate (Fentanyl Citrate/Sodium Chloride 1 Mg/100 Ml) 100 mls @ 2 mls /hr IV .Q24H PRN; Protocol; 20 MCG/HR PRN Reason: TITRATE PER MD ORDER Midazolam 100 mg/100ml in NS (Midazolam 100 Mg/100ml In Ns) 100 mls @ 1 mls/hr IV .Q24H PRN; Protocol; 1 MG/HR PRN Reason: Pain, moderate (4-7) Last Admin: 05/26/16 14:22 Dose: 1 mls/hr Propofol (Diprivan) 100 mls @ 1.878 mls/hr IV .Q24H PRN; Protocol; 5 MCG/KG/MIN PRN Reason: TITRATE PER MD ORDER Last Admin: 05/27/16 01:49 Dose: 5 mls/hr Sodium Bicarbonate 75 meq/ (Dextrose/Sodium Chloride) 1,075 mls @ 100 mls/hr IV .[id number] [facility] Last Admin: 05/27/16 04:47 Dose: 100 mls/hr Norepinephrine Bitartrate 4 mg (/ Dextrose) 254 mls @ 15.24 mls/hr IV .[id number] PRN; Protocol; 4 MCG/MIN PRN Reason: TITRATE PER MD ORDER Last Admin: 05/26/16 19:02 Dose: 7.62 mls/hr Amiodarone HCl/Dextrose (Nexterone 360 Mg In D5w 200 Ml (Premix)) 200 mls @ 33.333 mls/hr IV .Q6H SHARIF; 1 MG/MIN PRN Reason: Protocol Meropenem 1 gm/ Sodium (Chloride) 100 mls @ 100 mls/hr IVPB Q8 SHARIF PRN Reason: Protocol Stop: 06/01/16 23:59 Last Admin: 05/27/16 05:03 Dose: 100 mls/hr Lorazepam (Ativan) 0.5 mg IVP Q6H PRN; Protocol PRN Reason: Anxiety Last Admin: 05/26/16 09:31 Dose: 0.5 mg Morphine Sulfate (Morphine) 2 mg IVP Q4H PRN PRN Reason: Pain, moderate (4-7) Last Admin: 05/26/16 03:48 Dose: 2 mg Ondansetron HCl (Zofran Inj) 4 mg IVP Q4H PRN PRN Reason: Nausea/Vomiting Last Admin: 05/25/16 17:53 Dose: 4 mg Oxycodone/Acetaminophen (Percocet 5/325 Mg Tab) 1 tab PO Q6H PRN PRN Reason: Pain, severe (8-10) Stop: 05/28/16 09:48 Last Admin: 05/25/16 09:55 Dose: 1 tab - Labs Labs: 05/27/16 04:45 05/27/16 04:45 PT 15.0 Seconds (9.9-11.8) H 05/27/16 04:45 INR 1.39 (0.93-1.08) H 05/27/16 04:45 APTT 30.4 Seconds (23.7-30.8) 05/27/16 04:45 - Constitutional Appears: Chronically Ill - Head Exam Head Exam: ATRAUMATIC, NORMAL INSPECTION, NORMOCEPHALIC - Eye Exam Eye Exam: Normal appearance - ENT Exam ENT Exam: Mucous Membranes Moist, Normal Exam - Neck Exam Neck Exam: Full ROM, Normal Inspection. absent: Lymphadenopathy - Respiratory Exam Respiratory Exam: Respiratory Distress. absent: NORMAL BREATHING PATTERN Additional comments: Intubated. 100% - Cardiovascular Exam Cardiovascular Exam: Tachycardia, +S1, +S2 - GI/Abdominal Exam GI & Abdominal Exam: Soft. absent: Distended, Firm, Tenderness - Rectal Exam Rectal Exam: Black Stool, Bloody Stool - Exam Exam: Scrotal Swelling Additional comments: Gleason in place: Inquinal hernia larger. erythematous. - Neurological Exam Neurological Exam: absent: Oriented x3 - Skin Skin Exam: Dry, Erythema, Intact Assessment and Plan - Assessment and Plan (Free Text) Assessment: 85M w. B/L inguinal hernias and cecal mass, s/p ex-lap w. R hemicolectomy, POD# 5 now w. GI bleed -GI bleed likely from anastomosis site vs. sigmoid -continue w. transfusion of blood products PRN -serial labs -if pt does not stabilize will plan for OR -Call and message was left w. next of kin Servando Potter at [phone] -case d/w Dr. Peterson
[2016-05-27 09:01] LABS: ADD MANUAL DIFF? NO
[2016-05-27] MEDS: Fentanyl 1000mcg/100ml NS 100 ML IV PRN ×2 (09:10→20:11)
[2016-05-27 09:15] LABS: BASO # 0.02 K/mm3 (0.0-2.0); BASO % 0.1 % (0.0-3.0); GRAN # 24.24 (1.4-6.5); GRAN % 90.3 % (50.0-68.0); HEMATOCRIT 33.3 % (42.0-52.0); LYMPH % 3.6 % (22.0-35.0); MEAN CELL VOLUME 88.1 fL (80.0-105.0); MEAN CORPUSCULAR HEMOGLOBIN 29.4 pg (25.0-35.0); MEAN CORPUSCULAR HGB CONC 33.3 g/dl (31.0-37.0); MEAN PLATELET VOLUME 10.4 fl (7.0-11.0); MONO # 1.6 (0.1-0.6); PLATELET COUNT 191 10^3/uL (120.0-450.0); RED CELL DISTRIBUTION WIDTH 16.5 % (11.5-14.5)
[2016-05-27 09:16] LABS: WHITE BLOOD COUNT 26.8 10^3/ul (4.5-11.0)
--- NOTE | 2016-05-27 11:49 | PN ---
DATE: 05/27/2016 The patient seen and examined at bedside. He is sedated with Versed 4 mg per hour. The patient is on PRVC 350/35/15/60. His oxygen saturation is 93%. Heart rate 101, blood pressure 96/53 with mean arterial pressure of 66. The patient is on bicarb drip at 100 mL per hour, Protonix drip, fentanyl drip at 75 mcg per hour and Versed 4 mg per hour. PHYSICAL EXAMINATION: HEAD AND NECK: Atraumatic. LUNGS: Few crackles bilaterally. HEART: Regular rate and rhythm. S1, S2 normal. ABDOMEN: Soft, nontender, nondistended. MUSCULOSKELETAL: No C/C/E. NEUROLOGIC: The patient is sedated. SKIN: Moist. LABORATORY DATA: Sodium 143, potassium 3.8, chloride 107, carbon dioxide 28, BUN 20, creatinine 0.9, glucose 88, AST 105, ALT 56. WBC 26.8, hemoglobin 11.1 down from 11.5, platelet count 191. INR 1.39. MEDICATIONS: Ativan p.r.n., fentanyl, Flagyl, meropenem, morphine p.r.n., Protonix drip, bicarb 100 mL per hour, Versed drip, Zofran p.r.n. Chest x-ray showed bilateral fluffy infiltrate and air bronchograms consistent with diagnosis of noncardiogenic pulmonary edema/ARDS. ASSESSMENT AND PLAN: This is an 85-year-old gentleman with hemorrhagic shock secondary to massive lower gastrointestinal bleed complicated by multiorgan system failure including adult respiratory distress syndrome and hypoxemic respiratory failure. 1. Neurologic: The patient is sedated. I will use neuromuscular blockade to improve the patient's ventilator synchrony. 2. Pulmonary: The patient has ARDS. We will proceed with strict protective lung ventilation strategy including 6 mL per predicted body weight and plateau pressure less than 30. We will proceed with neuromuscular blockade+deep sedation to improve the patient's ventilator synchrony. We will allow permissive hypercapnia. At present time, the settings include tidal volume 350 , PEEP15,, FIO2 60% and respiratory rate 35. We will repeat ABG and followup on the numbers. ARDS is likely due to aspiration pneumonitis/pneumonia. The patient is on broad-spectrum antibiotics for it. The infectious disease service is following him as well. We will continue with head of bed elevated more than 35 degrees. We will continue with VAP bundle. The patient is not a candidate for prone ventilation as he just had an abdominal surgery recently. Once hemodynamics improved--will proceed with conservative fluid management/ diuresis 3. Cardiovascular: The patient has borderline hemodynamics. We will maintain mean arterial pressure more than 65. Lactic acidosis substantially imrpoved 4. Gastrointestinal: The patient had massive lower gastrointestinal bleed, likely in the anastomotic area. It did slow down a bit--patient has melena but no bright red blood per rectum. Hb 11.1. The upper gastrointestinal bleed is most likely due to hemorrhagic gastritis. Upper GI bleed slowed down as well. Will continue with serial CBC. Will maintain Hb above 9.0. Discussed with Dr. Peterson--seems to hold off on OR for now.. The patient is also on Protonix drip. 5. Hematology/Oncology: The patient received PRBC:FFP, platelets to prevent dilutional cogulopathy. Overall, he received 4 units of blood. His hemoglobin today is 11.1. He received 4 units of fresh frozen plasma and he received 1 bag of platelets. It appears that the bleeding has slowed down a bit. The patient is not acidemic anymore and patient is normothermic as well. Surgical service ordered more FFP as bleeding continues even though appears to slow down quite a bit. 6. Infectious disease: The patient has aspiration pneumonitis/pneumonia. The patient is on meropenem and Flagyl. Vancomycin was given yesterday. Dr. Fuentes Victoria is following the patient as well. We will continue with septic workup, procalcitonin. 7. Endocrine: We will avoid hypoglycemia and we will continue with maintaining blood glucose between 140-180 range according to NICE-SUGAR trial. We will continue with mechanical deep venous thrombosis prophylaxis. Addendum: patient is on Nimbex drip, Versed and Fentanyl--on the setting above 02sat 97, BP substantially improved, Lasix 40 mg IV given with more then 1 L diuresis noted. Will repeat CBC and BMP to monitor electrolites, Hb and coags. I tried to reach Sagar Potter to update him, but to no avail. ccm time 40 min Javier Molina MD cc: [id number] TT: 05/27/2016 11:48:38 Confirmation # [id number] Dictation # [id number] tn MTDD
--- NOTE | 2016-05-27 11:55 | PN ---
DATE: 05/27/2016 The patient is in the ICU, intubated. His blood pressure and vital signs are stable. My initial int ention was to operate on him for a probably anastomotic bleeding, but I am not able to get in touch w ith the family. His bleeding seems to have slowed down and possibly stopped. The bright red blood w ith clots is now a slow ooze of melena. The NG tube is positive for some guaiac positive stuff. The re is probably an ulcer in addition to anything else. The bleeding scan was pretty clear about it be ing anastomotic. Presently, the heart rate is down to 100, 110. Urine seems adequate. His white co unt is disturbing at 26.8. Hemoglobin after a total of 6 units of blood is 11. Platelets are 191. P T is still elevated and we will correct the coagulopathy with more FFP. At the moment, I do not unde rstand why the white count is elevated to 26. It is 5 days postop. We will check for C. diff which is certainly a possibility. Has a chest x-ray that is done, but not reported, showing bilateral infi ltrates mostly in the upper lobes. The patient is intubated currently. At the moment, I do not thin k we need to operate on him, but I certainly have lots of questions. At some point, I think it would be productive to have an EGD because some of this bleeding is from the stomach and/or duodenum. The patient is in critical condition in the ICU with multiple complications. At this time, I have no conn rgical intention, but there are several unresolved questions. I will continue to follow. Alberto Peterson MD cc: [id number] TT: 05/27/2016 11:54:15 Confirmation # [id number] Dictation # [id number] tn
[2016-05-27 12:02] LABS: ARTERIAL BLOOD GAS HCO3 26.6 mmol/L (21-28); ARTERIAL BLOOD GAS O2 CAPACITY 14.1 mL/dl (16-24); ARTERIAL BLOOD GAS O2 CONTENT 13.3 ML/dl (15-23); ARTERIAL BLOOD GAS PH 7.37 (7.35-7.45); ARTERIAL BLOOD HGB O2 SAT 91.7 % (95.0-98.0); CARBOXYHEMOGLOBIN 2.2 % (0.5-1.5); HHB 5.4 % (0-5); METHEMOGLOBIN 0.7 % (0.0-3.0)
--- NOTE | 2016-05-27 12:50 | RAD ---
HISTORY: gi bleed COMPARISON: May 26, 2016. FINDINGS: BOWEL: Normal. No obstruction. No free air. Nasogastric tube in good position in the stomach. BONES: Normal. OTHER FINDINGS: None. IMPRESSION: Resolution of small bowel obstruction identified previously.
--- NOTE | 2016-05-27 13:02 | RAD ---
HISTORY: ARDS, hypoxemic respiratory failure COMPARISON: May 26, 2016. FINDINGS: LUNGS: Stable multifocal infiltrates bilaterally left greater than right. PLEURA: No significant pleural effusion identified, no pneumothorax apparent. CARDIOVASCULAR: Normal. OSSEOUS STRUCTURES: No significant abnormalities. VISUALIZED UPPER ABDOMEN: Normal. OTHER FINDINGS: Stable, satisfactory position ventilatory, vascular and nasogastric apparatus. IMPRESSION: No significant interval change compared to the prior examination(s).
--- NOTE | 2016-05-27 13:34 | CARD ---
APPROVED REPORT EKG Measurement Heart [id number] CO [id number] <Conclusion> Sinus tachycardia Left anterior fascicular block Abnormal ECG
[2016-05-27] MEDS: Midazolam 100 mg/100ml in NS 100 ML IV PRN (17:12)
[2016-05-27 17:41] LABS: ADD MANUAL DIFF? NO
[2016-05-27 17:55] LABS: BASO # 0.03 K/mm3 (0.0-2.0); BASO % 0.1 % (0.0-3.0); BLOOD UREA NITROGEN 20 mg/dL (7-21); CALCIUM 7.3 mg/dL (8.4-10.5); CARBON DIOXIDE 33 mmol/L (21-33); CHLORIDE 105 mmol/L (98-107); EOS # 0.1 (0.0-0.7); EOS % 0.2 % (1.5-5.0); GFR AFRICAN-AMERICAN > 60; GLUCOSE,RANDOM 91 mg/dL (70-110); GRAN # 27.69 (1.4-6.5); GRAN % 89.4 % (50.0-68.0); HEMATOCRIT 34.8 % (42.0-52.0); LYMPH # 0.9 (1.2-3.4); LYMPH % 2.9 % (22.0-35.0); MEAN CELL VOLUME 89.7 fL (80.0-105.0); MEAN CORPUSCULAR HEMOGLOBIN 29.1 pg (25.0-35.0); MEAN CORPUSCULAR HGB CONC 32.5 g/dl (31.0-37.0); MEAN PLATELET VOLUME 10.3 fl (7.0-11.0); MONO # 2.3 (0.1-0.6); MONO % 7.4 % (1.0-6.0); PLATELET COUNT 176 10^3/uL (120.0-450.0); POTASSIUM 3.5 mmol/L (3.6-5.0); RED CELL DISTRIBUTION WIDTH 17.1 % (11.5-14.5); SODIUM 145 mmol/L (132-148); VENOUS BLOOD GAS BASE EXCESS 3.9 mmol/L (0.0-2.0); VENOUS BLOOD PH 7.34 (7.32-7.43)
[2016-05-27 18:03] LABS: INR 1.55 (0.93-1.08); PARTIAL THROMBOPLASTIN TIME 28.1 Seconds (23.7-30.8)
--- NOTE | 2016-05-27 18:40 | CP.PCM.PN ---
Subjective - Date & Time of Evaluation Date of Evaluation: 05/27/16 Time of Evaluation: 16:45 - Subjective Subjective: Infectious Disease Follow Up: May 27, 2016 85 yo male with initial presentation for abdominal pain and abnormal CT scan sent from [facility] facility (I think [facility] [place]). 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 Currently the patient appears comfortable. He is unable to give any relevant information due to a severe developmental delay. Patient is currently post-operative day #5 and has been displaying increasing leukocytosis since the surgery. Patient himself is awake and alert and does not appear to be making any major complaints. Nursing reports BM but also blood in BM. He was brought to MICU yesterday morning. He required intubation and ventilation. Signs of aspiration pneumonia. Will increase coverage to meropenem for now. Persistent leukocytosis. Patient in critical condition. Right IJ placed by MICU team. Case discussed with Dr. Pringle and Dr. Molina. The patient is on Meropenem and Flagyl for antibiotic coverage. Leukocytosis has worsened to 31 today. Patient remains in critical condition but seems more stable compared to yesterday. Patient did receive 6 U of PRBCs, 4 U of FFP, and 1 U of platelets. OGT was draining black liquid yesterday. Surgery has asked for a C. diff study. Objective - Vital Signs/Intake and Output Vital Signs (last 24 hours): Temp Pulse Resp BP Pulse Ox 99 F 100 H 35 H 104/53 L 92 L 05/27/16 05:00 05/27/16 10:00 05/27/16 10:00 05/27/16 13:13 05/27/16 10:00 Intake and Output: 05/27/16 05/27/16 06:59 18:59 Intake Total 2669 Output Total 450 Balance 2219 - Medications Medications: Current Medications Acetaminophen (Tylenol 325mg Tab) 650 mg PO Q4H PRN PRN Reason: FEVER, PAIN Metronidazole (Flagyl) 100 mls @ 100 mls/hr IVPB Q8 SHARIF PRN Reason: Protocol Last Admin: 05/27/16 13:20 Dose: 100 mls/hr Pantoprazole Sodium (Protonix 40mg Ivpb) 100 mls @ 20 mls/hr IVPB .Q5H SHARIF Last Admin: 05/27/16 10:41 Dose: 20 mls/hr Midazolam 100 mg/100ml in NS (Midazolam 100 Mg/100ml In Ns) 100 mls @ 1 mls/hr IV .Q24H PRN; Protocol; 1 MG/HR PRN Reason: Pain, moderate (4-7) Last Admin: 05/27/16 17:12 Dose: 3 mls/hr Propofol (Diprivan) 100 mls @ 1.878 mls/hr IV .Q24H PRN; Protocol; 5 MCG/KG/MIN PRN Reason: TITRATE PER MD ORDER Last Admin: 05/27/16 01:49 Dose: 5 mls/hr Sodium Bicarbonate 75 meq/ (Dextrose/Sodium Chloride) 1,075 mls @ 100 mls/hr IV .[id number] SHARIF Last Admin: 05/27/16 04:47 Dose: 100 mls/hr Norepinephrine Bitartrate 4 mg (/ Dextrose) 254 mls @ 15.24 mls/hr IV .[id number] PRN; Protocol; 4 MCG/MIN PRN Reason: TITRATE PER MD ORDER Last Admin: 05/26/16 19:02 Dose: 7.62 mls/hr Amiodarone HCl/Dextrose (Nexterone 360 Mg In D5w 200 Ml (Premix)) 200 mls @ 33.333 mls/hr IV .Q6H SHARIF; 1 MG/MIN PRN Reason: Protocol Meropenem 1 gm/ Sodium (Chloride) 100 mls @ 100 mls/hr IVPB Q8 SHARIF PRN Reason: Protocol Stop: 06/01/16 23:59 Last Admin: 05/27/16 13:13 Dose: 100 mls/hr Fentanyl Citrate (Fentanyl Citrate/Sodium Chloride 1 Mg/100 Ml) 100 mls @ 7.5 mls/hr IV .[id number] PRN; Protocol; 75 MCG/HR PRN Reason: TITRATE PER MD ORDER Last Admin: 05/27/16 09:10 Dose: 7.5 mls/hr Cisatracurium Besylate 200 mg/ (Sodium Chloride) 200 mls @ 4.35 mls/hr IV .Q24H PRN; Protocol; 1 MCG/KG/MIN PRN Reason: TITRATE PER MD ORDER Last Admin: 05/27/16 12:43 Dose: 4.35 mls/hr Morphine Sulfate (Morphine) 2 mg IVP Q4H PRN PRN Reason: Pain, moderate (4-7) Last Admin: 05/26/16 03:48 Dose: 2 mg Ondansetron HCl (Zofran Inj) 4 mg IVP Q4H PRN PRN Reason: Nausea/Vomiting Last Admin: 05/25/16 17:53 Dose: 4 mg Oxycodone/Acetaminophen (Percocet 5/325 Mg Tab) 1 tab PO Q6H PRN PRN Reason: Pain, severe (8-10) Stop: 05/28/16 09:48 Last Admin: 05/25/16 09:55 Dose: 1 tab - Labs Labs: 05/27/16 17:35 05/27/16 04:45 PT 16.7 Seconds (9.9-11.8) H 05/27/16 17:35 INR 1.55 (0.93-1.08) H 05/27/16 17:35 APTT 28.1 Seconds (23.7-30.8) 05/27/16 17:35 - Constitutional Appears: Toxic, In Acute Distress, Chronically Ill - Head Exam Additional comments: intubated and ventilated. - Eye Exam Eye Exam: absent: Conjunctival injection, Scleral icterus Pupil Exam: NORMAL ACCOMODATION, PERRL - ENT Exam Additional comments: intubated and ventilated. - Neck Exam Neck Exam: Full ROM, Normal Inspection Additional comments: right IJ in place. - Cardiovascular Exam Cardiovascular Exam: Tachycardia, +S1, +S2 - GI/Abdominal Exam GI & Abdominal Exam: Soft, Normal Bowel Sounds. absent: Distended, Tenderness - Extremities Exam Extremities Exam: Normal Inspection Additional comments: thin and cachetic. - Neurological Exam Additional comments: Intubated, ventilated, and poorly responsive. - Psychiatric Exam Additional comments: Intubated, ventilated, and poorly responsive. - Skin Skin Exam: Intact, Normal Color Assessment and Plan - Assessment and Plan (Free Text) Assessment: 85 yo male with cecal mass and bilateral hernia had exploratory laparotomy with right hemicolectomy. The patient is unable to give any significant information when speaking with him. He is not complaining of pain. The patient had a rise in his leukocytosis to 31.0 today. There is a mild left shift to the leukocytosis. Supportive care. Silva cultures sent. Had Proteus in urine culture over a week ago but more recent urine culture is negative for growth. No growth in recent cultures so far. Currently on Meropenem and Flagyl for antibiotic coverage. Supportive care. CT Scan results noted with small bowel obstruction proximal to the right hernia sac containing dilated loops of small bowel. Findings consistent with incarceration and secondary proximal bowel obstruction. GI bleeding scan showing active bleed on both sides of the pelvis probably within the sigmoid colon. Surgery aware of findings. Transferred to MICU and required intubation and ventilation. On antibiotics of Meropenem and Flagyl currently. Awaiting repeat cultures. Await to see if any further surgical interventions. Possible aspiration pneumonia. Bleed at anastomotic site. Repeat Abdominal X-ray shows resolvement of SBO portion of disease. Patient remains critically ill and has a very poor prognosis. Thank you for allowing me to participate in the care of the patient, we will follow with you.
--- NOTE | 2016-05-27 19:39 | PN ---
DATE: 05/27/2016 This 85-year-old male was examined in bed 1 of the critical care unit, and his case was reviewed in detail with Drs. Albert Molina, social media coordinator, Dr. Alberto Peterson, surgery, and Dr. Fuentes Victoria from infectious disease. The patient is intubated, sedated, and receiving IV fluids, blood products, and pulmonary support, status post gastrointestinal bleeding of upper and lower tracks secondary to probable stress gastritis and surgical anastomotic colonic site lower colon bleeding. The patient has received 6 units of packed red blood cells, fresh frozen plasma and platelets, and his GI bleeding has slowed. He still has coffee ground emesis on his NG tube suctioning, and his lower gastrointestinal tract is showing melanotic stool. Of note, he had a chest x-ray earlier this morning showing stable multifocal infiltrates bilaterally, left greater than right, felt to be consistent with aspiration pneumonia, and his abdominal x-ray shows no obstruction, no free air , and that his nasogastric tube is in good position in his stomach. It is felt that the small-bowel obstruction is now resolved. On physical exam, temperature 99, respirations 36, pulse 100, blood pressure 102/60. He is on FIO2 of 70, and 15 of PEEP, and his respiratory rate is set for 35. I's and I's showed 8819 mL in, and 1450 mL out in 24 hours. Monitor NSR. HEAD: Normocephalic, atraumatic. EYES: Show no icterus. NECK: Supple. HEART: S1, S2. No pathological rubs, murmurs, or gallops. LUNGS: Have occasional rhonchi bilaterally. No wheezing, no rales. ABDOMEN: Soft. No palpable organomegaly. EXTREMITIES: No clubbing, no cyanosis, no edema. SKIN: Without rash. NEUROLOGICAL: Sedated. VASCULAR: Legs warm to touch. SKIN: Without rash or ulceration. LABORATORIES: White count 26,800, hemoglobin 11.1, hematocrit 33.3, platelets 191,000. PT/INR 1.39, PTT 30.4. Sodium 143, K 3.8, chloride 107, bicarbonate 28, BUN 20, creatinine 0.9. Random blood sugar was 88, bilirubin 1.7. AST 105, ALT 56, alkaline phosphatase 46. His guaiac on his NG tube was positive. IMPRESSION: An 85-year-old male, now intubated and sedated, with probable aspiration pneumonia and acute respiratory distress syndrome (ARDS) on ventilatory support with large AA gradient, and on broad spectrum antibiotics under the direction of Dr. Fuentes Victoria from infectious disease, which includes meropenem, Flagyl, and vancomycin. The patient also is status post hemorrhagic shock, and was treated with blood transfusion, and IV fluids, and IV Levophed, now discontinued. He is status post a major GI bleed of both upper and lower tracks, presumed secondary to stress gastritis and surgical anastomotic area bleeding which appears to have slowed down, since the patient has melena and no bright red blood per rectum with a stabilized hemoglobin, with the aim to keep his hemoglobin above 9. The patient also is being treated with sequential compression device anti- embolism stockings for deep vein thrombosis prophylaxis, and is not a candidate for heparin anticoagulation, given his coagulopathy. He will remain intubated. He will have serial labs. Blood and urine cultures show no growth at 24 hours. He remains on sedation while intubated. He is on an IV Protonix drip. He is ordered to have serial chest x-rays. He remains n.p.o., and his overall prognosis is indeed guarded. He remains on aspiration precautions, skin precautions, fall precautions, and multiple attempts by myself and all co-consultants to reach his next of kin, Sagar Potter, have been unsuccessful. The patient will be treated aggressively and supportively, and his overall prognosis is guarded. Greater than one hour was spent in critical care of this patient, discussion of care, coordination of care with his nurses, social media coordinator, surgeon, and co- consultants. Codi Pringle MD cc: [id number] TT: 05/27/2016 19:38:42 Confirmation # [id number] Dictation # [id number] [id number] MTDD
[2016-05-27 21:42] LABS: VENOUS BLOOD GAS BASE EXCESS 2.8 mmol/L (0.0-2.0); VENOUS BLOOD PH 7.32 (7.32-7.43)
[2016-05-28] MEDS: Pantoprazole 40mg/100ml IVPB 100 ML IVPB SCH ×5 (03:04→21:56)
--- NOTE | 2016-05-28 03:14 | PN ---
DATE: 05/27/2016 SUBJECTIVE: This patient was seen and evaluated earlier. Remains on vent, NG tube becoming more clearer. Has few episodes of dark stool. PHYSICAL EXAMINATION: VITAL SIGNS: Blood pressure 104/53, temperature is 99, pulse ox 92. HEENT: Atraumatic, anicteric. NECK: Supple. HEART: S1, S2 heard. LUNGS: Bilateral air entry present. ABDOMEN: Soft. Dressing present. He has scrotal hernia, right side. EXTREMITIES: Edema present. LABORATORY DATA: Hemoglobin 11.3, hematocrit 34.8, WBC 31,000, and platelets 176. INR 1.5. Chemistry shows sodium 145, potassium 3.5, BUN 20, creatinine 0.9. IMPRESSION: This 85-year-old patient with bilateral inguinal hernia underwent laparotomy and right hemicolectomy, postoperative course complicated with gastrointestinal bleeding, most likely from the anastomotic area and inguinal hernia, partial small-bowel obstruction. The patient did not have any GI bleeding. NG tube showed dark drainage, probably combination of and gastrointestinal bleeding, status post transfusion. Hemoglobin and hematocrit remains stable now. The patient had an upper GI endoscopy done 6 weeks ago, did not show any ulceration, had a small arteriovenous malformation which was treated. Less likely, the patient had developed an acute deep ulceration causing this bleeding. The patient did have small erosions possibility. Sepsis, increasing white cell count. The patient is being followed by ID, on IV antibiotics. RECOMMENDATIONS: 1. Close followup of the hemoglobin and hematocrit. 2. Continue the antibiotics. 3. Sepsis, status post cardiac arrest and resuscitation. Surgical note reviewed. At the present time, the patient may not benefit from any endoscopic evaluation in view of the above reasons, recent endoscopy revealed no ulceration. The patient has a mild coagulopathy and lavage did not reveal any active bleeding, when the upper endoscopy becoming more clear. Flexible sigmoidoscopy would not be helpful as the bleeding is most likely from the anastomotic area and the sigmoid colon probably showed pooled blood. Close surgical followup. We will continue to closely follow up his care and suggest further management based on the clinical course. Ann Luna MD cc: [id number] TT: 05/28/2016 03:14:13 Confirmation # [id number] Dictation # [id number] MTDD
[2016-05-28] MEDS: metroNIDAZOLE IV 500 mg/100 ml 100 ML IVPB SCH ×3 (05:18→21:19)
[2016-05-28] MEDS: Meropenem 1 GM in Sodium Chloride 0.9% 100 ML IVPB SCH ×3 (05:19→21:55)
[2016-05-28 05:41] LABS: ALB/GLOB RATIO 0.9 (1.1-1.8); ALKALINE PHOSPHATASE 65 U/L (38-133); ALT/SGPT 139 U/L (7-56); AST/SGOT 243 U/L (15-59); BLOOD UREA NITROGEN 22 mg/dL (7-21); CALCIUM 7.5 mg/dL (8.4-10.5); CARBON DIOXIDE 33 mmol/L (21-33); CHLORIDE 106 mmol/L (98-107); GFR AFRICAN-AMERICAN > 60; GLUCOSE,RANDOM 89 mg/dL (70-110); POTASSIUM 3.6 mmol/L (3.6-5.0); SODIUM 147 mmol/L (132-148); TOTAL PROTEIN 5.6 g/dL (5.8-8.3)
[2016-05-28 05:46] LABS: HEMATOCRIT 36.3 % (42.0-52.0); MEAN CELL VOLUME 91.2 fL (80.0-105.0); MEAN CORPUSCULAR HEMOGLOBIN 29.6 pg (25.0-35.0); MEAN CORPUSCULAR HGB CONC 32.5 g/dl (31.0-37.0); MEAN PLATELET VOLUME 10.3 fl (7.0-11.0); PLATELET COUNT 190 10^3/uL (120.0-450.0); RED CELL DISTRIBUTION WIDTH 17.4 % (11.5-14.5)
[2016-05-28 05:47] LABS: ADD MANUAL DIFF? YES; WHITE BLOOD COUNT 32.6 10^3/ul (4.5-11.0)
[2016-05-28 09:14] LABS: BAND 8 % (0-2); METAMYELOCYTE 2 %; MYELOCYTE 1 %; NEUTROPHIL 83 % (50.0-70.0)
[2016-05-28 09:24] LABS: ABG MECHANICAL RATE 35; ARTERIAL BLOOD GAS HCO3 28.5 mmol/L (21-28); ATERIAL BLOOD GAS PEEP 10
[2016-05-28] MEDS ORDERED: Linezolid 600 mg in D5W 300 ml 300 ML IVPB SCH (10:00)
[2016-05-28] MEDS: Fentanyl 1000mcg/100ml NS 100 ML IV PRN ×2 (10:49→22:35)
--- NOTE | 2016-05-28 13:04 | RAD ---
PROCEDURE: Portable chest single view HISTORY: ards hypoxemic respiratory failure COMPARISON: May 27, 2016. TECHNIQUE: Technique: Single view portable semi erect @ 05:56. FINDINGS: Improving bilateral infiltrates, pulmonary edema. Stable position of support apparatus including right IJ catheter, endotracheal tube and nasogastric tube. IMPRESSION: Improving multifocal infiltrates compared to the prior study May 27, 2016. Performed at 09:15.
--- NOTE | 2016-05-28 14:50 | PN ---
DATE: 05/28/2016 This 85-year-old male was examined at his bedside in bed 1 of the critical care unit. His case was reviewed in detail with his nurse, Madelin Del Rosario, registered nurse. The patient remains intubated, sedated and is being followed by co-consultants from infectious disease, surgery, intensive care, gastroenterology for postoperative colonic bleeding, presumed secondary to bleeding at the right hemicolectomy anastomotic site as well as stress gastritis. Since being admitted to the intensive care unit, the patient has received multiple packed red blood cell transfusions, fresh frozen plasma and platelets. At present, he has no bright red blood from his NG tube nor rectum. He did have a small amount of darkish blackened stool according to the nurse. He is still having small amounts of coffee ground NG tube drainage and is being treated with an IV Protonix drip. He is intubated. He has presumed aspiration pneumonia. He is receiving IV antibiotic therapy and is attempting to be weaned from the ventilator. Of note, yesterday he was on 100% FiO2 with 15 of PEEP and presently is on 70% FiO2 with 10 of PEEP. The patient is unresponsive to questioning secondary to sedation. Followup abdominal x-ray shows no evidence of small bowel obstruction and today's chest x-ray is showing improved bilateral infiltrates and improvement in pulmonary congestion. He was seen earlier today by Dr. Alberto Peterson from surgery, who reported that he has no immediate plans for surgical intervention. PHYSICAL EXAMINATION: VITAL SIGNS: quality assurance monitor chassis shows normal sinus rhythm. Temperature is 97.7, respirations 35, pulse 100, blood pressure 109/54, pulse ox 95%. HEAD: Normocephalic, atraumatic. EYES: Show no icterus. NECK: Supple. HEART: Regular S1, S2. No pathological rubs, murmurs, or gallops. LUNGS: Have decreased breath sounds bilaterally, occasional rhonchi, no wheezing, no rales. ABDOMEN: Has a binder in place. It is soft on palpation. There is no rebound , no guarding. GENITALIA: Scrotum shows bilateral inguinal hernias. EXTREMITIES: Show no clubbing, no cyanosis, no edema. His skin has good turgor. There is no rash. He is wearing anti-embolism sequential stockings, SCDs. NEUROLOGIC: He is sedated. LABORATORIES: White count 32,600, hemoglobin 11.8, hematocrit 36.3, platelets 190,000. PT/INR 1.55, PTT 28.1. Sodium 147, K 3.6, chloride 106, bicarbonate 33, BUN 22, creatinine 0.9, random blood sugar is 80, bilirubin 1.0, AST 243, ALT 139, alkaline phosphatase 65. His emesis was positive for blood. IMPRESSION: An 85-year-old male, status post right hemicolectomy for a cecal mass with postoperative bleeding, presumed secondary to hemorrhage at the surgical anastomotic site and also stress gastritis with comorbidities of probable aspiration pneumonia, leukocytosis, acute respiratory distress syndrome , resultant anemia requiring packed red blood cells, platelets and fresh frozen plasma transfusion, now with elevated liver function testings, probably on the basis of shock liver and need for sedation because of respiratory failure with hypoxemia requiring 70% FiO2 and PEEP. PLAN: To maintain sedation for this patient while he is receiving pulmonary support and IV antibiotic therapy. He continues on parenteral nutrition, sedation with fentanyl and Versed, IV Lasix for management of volume overload. He is on meropenem 1 gram IV q. 8, IV Flagyl 500 mg IV q. 8 under the direction of Dr. Victoria from infectious disease. IV Levophed has been weaned off. He remains on an IV Protonix drip. He has been weaned off his IV bicarbonate. He will have a repeat chest x-ray, input and output. He remains n.p.o. He is wearing anti-embolism stockings, remains on fall precautions. He is on a specialty mattress and on aspiration precautions as well. He is ordered to have bedside physical therapy and range of motion with the therapist and nursing staff. He is receiving skin care. He will be continued to be followed and care will be coordinated by co-consultants from infectious disease, cardiology, surgery, gastroenterology and intensive care. He is ordered to have a comprehensive metabolic panel and serial labs daily. Of note, blood cultures and urine cultures postoperatively are negative to date. He had no methicillin-resistant Staphylococcus aureus in his nares. Multiple attempts by myself as well as co-consultants to reach his only living relative, his nephew, Sagar Potter, have been unsuccessful and patient's code status remains full since no family members can be reached. Ultimate prognosis is poor. Supportive care will be maintained. Greater than sixty minutes was spent in the care, coordination of care, review of care and discussion of care for this patient at his bedside with his nurse and co-consultants today and overall prognosis is poor, but supportive and compassionate care will be continued while still trying to reach family members, unsuccessful to date. Codi Pringle MD cc: [phone] TT: 05/28/2016 14:49:43 Confirmation # [id number] Dictation # [id number] MTDD
--- NOTE | 2016-05-28 15:11 | CP.PCM.PN ---
Subjective - Date & Time of Evaluation Date of Evaluation: 05/28/16 Time of Evaluation: 07:08 - Subjective Subjective: General Surgery Progress note for Dr. Peterson This 85M was seen and examined by me this AM at bedside. Nurse reports no more bloody bowel movements overnight. Patient is currently sedated and intubated. Objective - Vital Signs/Intake and Output Vital Signs (last 24 hours): Temp Pulse Resp BP Pulse Ox 98.4 F 108 H 35 H 100/50 L 92 L 05/28/16 12:00 05/28/16 14:00 05/28/16 07:00 05/28/16 12:00 05/28/16 14:00 Intake and Output: 05/28/16 05/28/16 06:59 18:59 Intake Total Output Total 1000 Balance -1000 - Medications Medications: Current Medications Acetaminophen (Tylenol 325mg Tab) 650 mg PO Q4H PRN PRN Reason: FEVER, PAIN Furosemide (Lasix) 40 mg IVP Q12 SHARIF Last Admin: 05/28/16 09:47 Dose: Not Given Metronidazole (Flagyl) 100 mls @ 100 mls/hr IVPB Q8 SHARIF PRN Reason: Protocol Last Admin: 05/28/16 13:28 Dose: 100 mls/hr Pantoprazole Sodium (Protonix 40mg Ivpb) 100 mls @ 20 mls/hr IVPB .Q5H SHARIF Last Admin: 05/28/16 12:30 Dose: 20 mls/hr Midazolam 100 mg/100ml in NS (Midazolam 100 Mg/100ml In Ns) 100 mls @ 1 mls/hr IV .Q24H PRN; Protocol; 1 MG/HR PRN Reason: Pain, moderate (4-7) Last Admin: 05/27/16 17:12 Dose: 3 mls/hr Sodium Bicarbonate 75 meq/ (Dextrose/Sodium Chloride) 1,075 mls @ 100 mls/hr IV .[id number] SHARIF Last Admin: 05/27/16 04:47 Dose: 100 mls/hr Norepinephrine Bitartrate 4 mg (/ Dextrose) 254 mls @ 15.24 mls/hr IV .[id number] PRN; Protocol; 4 MCG/MIN PRN Reason: TITRATE PER MD ORDER Last Titration: 05/27/16 19:00 Dose: 0 mcg/min Amiodarone HCl/Dextrose (Nexterone 360 Mg In D5w 200 Ml (Premix)) 200 mls @ 33.333 mls/hr IV .Q6H SHARIF; 1 MG/MIN PRN Reason: Protocol Meropenem 1 gm/ Sodium (Chloride) 100 mls @ 100 mls/hr IVPB Q8 SHARIF PRN Reason: Protocol Stop: 06/01/16 23:59 Last Admin: 05/28/16 14:49 Dose: 100 mls/hr Fentanyl Citrate (Fentanyl Citrate/Sodium Chloride 1 Mg/100 Ml) 100 mls @ 7.5 mls/hr IV .[id number] PRN; Protocol; 75 MCG/HR PRN Reason: TITRATE PER MD ORDER Last Admin: 05/28/16 10:49 Dose: 7.5 mls/hr Cisatracurium Besylate 200 mg/ (Sodium Chloride) 200 mls @ 4.35 mls/hr IV .Q24H PRN; Protocol; 1 MCG/KG/MIN PRN Reason: TITRATE PER MD ORDER Last Titration: 05/28/16 09:09 Dose: 0 mcg/kg/min Multivitamins/Vitamin C 10 ml/Chromium/Copper/Manganese/Zinc 1 ml/ Amino Acids 1,011 mls @ 42 mls/hr IV .Q24H SHARIF Stop: 05/31/16 17:59 Morphine Sulfate (Morphine) 2 mg IVP Q4H PRN PRN Reason: Pain, moderate (4-7) Last Admin: 05/26/16 03:48 Dose: 2 mg - Labs Labs: 05/28/16 05:12 05/28/16 05:12 PT 16.7 Seconds (9.9-11.8) H 05/27/16 17:35 INR 1.55 (0.93-1.08) H 05/27/16 17:35 APTT 28.1 Seconds (23.7-30.8) 05/27/16 17:35 - Constitutional Appears: Chronically Ill - Head Exam Head Exam: ATRAUMATIC, NORMAL INSPECTION, NORMOCEPHALIC - Eye Exam Eye Exam: Normal appearance - ENT Exam ENT Exam: Mucous Membranes Moist, Normal Exam - Neck Exam Neck Exam: Full ROM, Normal Inspection. absent: Lymphadenopathy - Respiratory Exam Respiratory Exam: Respiratory Distress. absent: NORMAL BREATHING PATTERN Additional comments: Intubated. 100% - Cardiovascular Exam Cardiovascular Exam: Tachycardia, +S1, +S2 - GI/Abdominal Exam GI & Abdominal Exam: Soft. absent: Distended, Firm, Tenderness - Rectal Exam Rectal Exam: Black Stool, Bloody Stool - Exam Exam: Scrotal Swelling Additional comments: Gleason in place: Inquinal hernia larger. erythematous. - Neurological Exam Neurological Exam: absent: Oriented x3 - Skin Skin Exam: Dry, Erythema, Intact Assessment and Plan - Assessment and Plan (Free Text) Assessment: 85M w. B/L inguinal hernias and cecal mass, s/p ex-lap w. R hemicolectomy, POD# 6 now w. GI bleed -GI bleed likely from anastomosis site vs. sigmoid -continue w. transfusion of blood products PRN -Pt will need abdominal ct with PO contrast as soon as the ICU team feels its safe. -case d/w Dr. Peterson
--- NOTE | 2016-05-28 17:19 | RAD ---
PROCEDURE: Portable chest HISTORY: ards, hypoxic resp failure COMPARISON: Multiple serial examinations preceding the most recent study: May 28, 2016. At approximately 05:55. TECHNIQUE: Technique: Single view portable semi erect @ 16:45 FINDINGS: Worsening ARDS/multifocal infiltrates. Stable and satisfactory position of support apparatus. IMPRESSION: Worsening ARDS/ pulmonary edema.
[2016-05-28] MEDS: TRACE ELEMENTS IV SCH (17:28)
[2016-05-28] MEDS: AMINO IV SCH (17:28)
[2016-05-28] MEDS: [UNRECOGNIZED DRUG - OTHER] IV SCH (17:28)
[2016-05-28] MEDS: MULTIVITAMIN IV SCH (17:28)
[2016-05-28] MEDS: DEXT IV SCH (17:28)
--- NOTE | 2016-05-28 18:06 | CP.PCM.PN ---
Subjective - Date & Time of Evaluation Date of Evaluation: 05/28/16 Time of Evaluation: 16:15 - Subjective Subjective: Infectious Disease Follow Up: May 28, 2016 85 yo male with initial presentation for abdominal pain and abnormal CT scan sent from [facility] facility (I think [facility]). 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 Currently the patient appears comfortable. He is unable to give any relevant information due to a severe developmental delay. Patient is currently post-operative day #5 and has been displaying increasing leukocytosis since the surgery. Patient himself is awake and alert and does not appear to be making any major complaints. Nursing reports BM but also blood in BM. He was brought to MICU yesterday morning. He required intubation and ventilation. Signs of aspiration pneumonia. Will increase coverage to meropenem for now. Persistent leukocytosis. Patient in critical condition. Right IJ placed by MICU team. Case discussed with Dr. Pringle and Dr. Molina. The patient is on Meropenem and Flagyl for antibiotic coverage. Leukocytosis has worsened to 32.6 today. Patient remains in critical condition but seems more stable compared to yesterday. Patient did receive 6 U of PRBCs, 4 U of FFP , and 1 U of platelets. OGT was draining black liquid yesterday. Surgery has asked for a C. diff study which is negative. Cannot rule out bowel ischemia. Patient has an extremely poor prognosis. Vancomycin readded to regimen. Objective - Vital Signs/Intake and Output Vital Signs (last 24 hours): Temp Pulse Resp BP Pulse Ox 98.2 F 109 H 35 H 113/53 L 90 L 05/28/16 16:00 05/28/16 16:51 05/28/16 07:00 05/28/16 16:51 05/28/16 16:40 Intake and Output: 05/28/16 05/28/16 06:59 18:59 Intake Total Output Total 1575 Balance -1575 - Medications Medications: Current Medications Acetaminophen (Tylenol 325mg Tab) 650 mg PO Q4H PRN PRN Reason: FEVER, PAIN Furosemide (Lasix) 40 mg IVP Q12 SHARIF Last Admin: 05/28/16 09:47 Dose: Not Given Metronidazole (Flagyl) 100 mls @ 100 mls/hr IVPB Q8 SHARIF PRN Reason: Protocol Last Admin: 05/28/16 13:28 Dose: 100 mls/hr Pantoprazole Sodium (Protonix 40mg Ivpb) 100 mls @ 20 mls/hr IVPB .Q5H SHARIF Last Admin: 05/28/16 17:35 Dose: 20 mls/hr Midazolam 100 mg/100ml in NS (Midazolam 100 Mg/100ml In Ns) 100 mls @ 1 mls/hr IV .Q24H PRN; Protocol; 1 MG/HR PRN Reason: Pain, moderate (4-7) Last Titration: 05/28/16 17:27 Dose: 7 mg/hr Sodium Bicarbonate 75 meq/ (Dextrose/Sodium Chloride) 1,075 mls @ 100 mls/hr IV .[id number] SHARIF Last Admin: 05/27/16 04:47 Dose: 100 mls/hr Norepinephrine Bitartrate 4 mg (/ Dextrose) 254 mls @ 15.24 mls/hr IV .[id number] PRN; Protocol; 4 MCG/MIN PRN Reason: TITRATE PER MD ORDER Last Titration: 05/27/16 19:00 Dose: 0 mcg/min Amiodarone HCl/Dextrose (Nexterone 360 Mg In D5w 200 Ml (Premix)) 200 mls @ 33.333 mls/hr IV .Q6H SHARIF; 1 MG/MIN PRN Reason: Protocol Meropenem 1 gm/ Sodium (Chloride) 100 mls @ 100 mls/hr IVPB Q8 SHARIF PRN Reason: Protocol Stop: 06/01/16 23:59 Last Admin: 05/28/16 14:49 Dose: 100 mls/hr Fentanyl Citrate (Fentanyl Citrate/Sodium Chloride 1 Mg/100 Ml) 100 mls @ 7.5 mls/hr IV .[id number] PRN; Protocol; 75 MCG/HR PRN Reason: TITRATE PER MD ORDER Last Titration: 05/28/16 17:26 Dose: 100 mcg/hr Cisatracurium Besylate 200 mg/ (Sodium Chloride) 200 mls @ 4.35 mls/hr IV .Q24H PRN; Protocol; 1 MCG/KG/MIN PRN Reason: TITRATE PER MD ORDER Last Titration: 05/28/16 09:09 Dose: 0 mcg/kg/min Multivitamins/Vitamin C 10 ml/Chromium/Copper/Manganese/Zinc 1 ml/ Amino Acids 1,011 mls @ 42 mls/hr IV .Q24H SHARIF Stop: 05/31/16 17:59 Last Admin: 05/28/16 17:28 Dose: 42 mls/hr Morphine Sulfate (Morphine) 2 mg IVP Q4H PRN PRN Reason: Pain, moderate (4-7) Last Admin: 05/26/16 03:48 Dose: 2 mg - Labs Labs: 05/28/16 05:12 05/28/16 05:12 PT 16.7 Seconds (9.9-11.8) H 05/27/16 17:35 INR 1.55 (0.93-1.08) H 05/27/16 17:35 APTT 28.1 Seconds (23.7-30.8) 05/27/16 17:35 - Constitutional Appears: Toxic, Chronically Ill - Head Exam Additional comments: intubated and ventilated. - Eye Exam Eye Exam: PERRL. absent: Conjunctival injection, Scleral icterus Pupil Exam: NORMAL ACCOMODATION - ENT Exam ENT Exam: Mucous Membranes Moist, Normal External Ear Exam, TM's Normal Bilaterally Additional comments: intubated and ventilated. - Neck Exam Neck Exam: Full ROM, Normal Inspection - Respiratory Exam Respiratory Exam: Decreased Breath Sounds, Rhonchi. absent: Rales, Wheezes - Cardiovascular Exam Cardiovascular Exam: Tachycardia, +S1, +S2 - GI/Abdominal Exam GI & Abdominal Exam: Distended, Soft, Normal Bowel Sounds. absent: Tenderness Additional comments: mild distension. - Extremities Exam Extremities Exam: Normal Inspection Additional comments: thin and cachetic. edema +1-2 of the bilateral upper extremities. Scrotal swelling. mild edema of the lower extremities. - Neurological Exam Additional comments: Intubated, ventilated, and poorly responsive. - Psychiatric Exam Additional comments: Intubated, ventilated, and poorly responsive. Assessment and Plan - Assessment and Plan (Free Text) Assessment: 85 yo male with cecal mass and bilateral hernia had exploratory laparotomy with right hemicolectomy. The patient is unable to give any significant information when speaking with him. He is not complaining of pain. The patient leukocytosis continued to rise to 32.6 today. There is a mild left shift to the leukocytosis. Supportive care. Silva cultures sent. Had Proteus in urine culture over a week ago but more recent urine culture is negative for growth. No growth in recent cultures so far. C. Diff studies negative. Currently on Meropenem and Flagyl for antibiotic coverage. Supportive care. CT Scan results noted with small bowel obstruction proximal to the right hernia sac containing dilated loops of small bowel. Findings consistent with incarceration and secondary proximal bowel obstruction. GI bleeding scan showing active bleed on both sides of the pelvis probably within the sigmoid colon. Surgery aware of findings. Remains in MICU and required intubation and ventilation. On antibiotics of Meropenem and Flagyl currently. Awaiting repeat cultures - negative to date. Await to see if any further surgical interventions. Possible aspiration pneumonia. Bleed at anastomotic site. Cannot rule out ischemic bowel. Patient remains unstable. Repeat Abdominal X-ray shows resolvement of SBO portion of disease. Patient remains critically ill and has an extremely poor prognosis. Thank you for allowing me to participate in the care of the patient, we will follow with you.
[2016-05-28] MEDS: Vancomycin 1gm in NS 250ml 250 ML IVPB SCH (18:42)
[2016-05-28] MEDS: Midazolam 100 mg/100ml in NS 100 ML IV PRN (20:59)
[2016-05-29] MEDS: Pantoprazole 40mg/100ml IVPB 100 ML IVPB SCH ×4 (03:16→21:28)
[2016-05-29] MEDS: Vancomycin 1gm in NS 250ml 250 ML IVPB SCH ×2 (05:00→17:02)
[2016-05-29] MEDS: Meropenem 1 GM in Sodium Chloride 0.9% 100 ML IVPB SCH ×3 (05:35→21:56)
[2016-05-29] MEDS: metroNIDAZOLE IV 500 mg/100 ml 100 ML IVPB SCH ×3 (05:36→21:30)
[2016-05-29 05:41] LABS: HEMATOCRIT 33.5 % (42.0-52.0); MEAN CELL VOLUME 92.5 fL (80.0-105.0); MEAN CORPUSCULAR HGB CONC 31.3 g/dl (31.0-37.0); MEAN PLATELET VOLUME 10.6 fl (7.0-11.0); PLATELET COUNT 189 10^3/uL (120.0-450.0); RED CELL DISTRIBUTION WIDTH 17.8 % (11.5-14.5)
[2016-05-29 06:08] LABS: ALKALINE PHOSPHATASE 70 U/L (38-133); ALT/SGPT 145 U/L (7-56); AST/SGOT 173 U/L (15-59); BILIRUBIN,TOTAL 0.7 mg/dL (0.2-1.3); BLOOD UREA NITROGEN 30 mg/dL (7-21); CALCIUM 7.4 mg/dL (8.4-10.5); CARBON DIOXIDE 36 mmol/L (21-33); CHLORIDE 105 mmol/L (95-110); GFR AFRICAN-AMERICAN > 60; GLUCOSE,RANDOM 106 mg/dL (70-110); SODIUM 147 mmol/L (132-148)
[2016-05-29 06:16] LABS: WHITE BLOOD COUNT 28.3 10^3/ul (4.5-11.0)
[2016-05-29 06:47] LABS: BAND 5 % (0-2); NEUTROPHIL 81 % (50.0-70.0)
[2016-05-29 06:48] LABS: ANISOCYTOSIS 1+; HYPOCHROMIA 1+; PLATELET ESTIMATE NORMAL (NORMAL)
[2016-05-29 07:26] LABS: ALB/GLOB RATIO 0.9 (1.1-1.8); POTASSIUM 2.9 mmol/L (3.6-5.0)
[2016-05-29] MEDS ORDERED: Albumin Human 5% (12.5 gm/250 ml) IV ONE (07:33)
[2016-05-29] MEDS ORDERED: Potassium Ch 20mEq in D5-1/2NS 1,000 ML IV SCH (07:45)
--- NOTE | 2016-05-29 07:51 | PN ---
DATE: 05/28/2016 The patient is seen and examined at bedside. He is comfortable. However, he is on neuromuscular blockade, which was just stopped, and unlikely to wear off completely. The patient is on 75 mcg per hour of fentanyl and Versed 3 mg per hour. The patient is also on Protonix drip at 8 mg per hour as well. The patient is on PRVC 350/35/10/40 (setting just decreased about half an hour ago from 60-40 FiO2, and from 15 PEEP to 10 PEEP. On that setting, oxygen saturation is 97%. Heart rate is 112, blood pressure 118/75. The patient was diuresed yesterday with net fluid balance -433. Goal for today will be -1 liter , as hemodynamics allow. PHYSICAL EXAMINATION: HEAD AND NECK: Atraumatic. LUNGS: Few crackles bilaterally. HEART: Regular rate and rhythm. S1, S2 distant. ABDOMEN: Soft, nontender, nondistended. MUSCULOSKELETAL: Trace bilateral pedal and ankle edema. NEUROLOGIC: The patient is NMB'd. SKIN: Moist. LABORATORY DATA: Sodium 147, potassium 3.6, chloride 106, carbon dioxide 33. BUN 22, creatinine 0.9. Glucose 89 (glucose appeared to be trending down - the patient is unlikely to be able to tolerate enteral nutrition within 7 days after surgery, thus PPN will be started to prevent hypoglycemia). AST 243, ALT 139. (We will bring these up to attention of Dr. Luna). Bilirubin is, however, 1.0. Alkaline phosphatase 65, albumin 2.6. WBC is 32.6 ( Procalcitonin ordered. Zyvox added until ID input on this question available. We will continue with Merrem and Flagyl). Hemoglobin 11.8, . Chest x-ray from today appears to be either unchanged or slightly better in terms of bilateral fluffy infiltrate consistent with diagnosis of ARDS. MEDICATIONS: Fentanyl drip, Flagyl, Lasix 40 mg IV q. 12, meropenem, Protonix drip, Tylenol p.r.n., midazolam, Zyvox. ASSESSMENT AND PLAN: This is an 85-year-old gentleman who was admitted to ICU with hemorrhagic shock after postoperative bleeding in the anastomotic area/ status post right hemicolectomy for cecal mass. The patient has undergone massive blood transfusion protocol with subsequent cessation of significant bleed. His hemoglobin remains stable, around 11.8 today. The coffee-ground discharge from the nasogastric tube has also slowed down substantially. The patient remains hemodynamically stable from that perspective. Leukocytosis may be reactive to significant blood loss. However, I think it is very prudent to consider ongoing infectious process, as leukocytosis is fairly significant. Potential source may be in the stomach or in the lungs. If the patient hemodynamically and respiratory remains stable, CAT scan of the belly to rule out abdominal abscess would help a lot. The other possibility is aspiration pneumonitis converting to aspiration pneumonia. The patient is on meropenem and Flagyl. I added Zyvox. We will also order procalcitonin, which may give us a bit more information about presence of severe sepsis. Respiratory-sigala, the patient showed strides toward improvement. His acute respiratory distress syndrome based on gas exchange parameters and compliance substantially improved. His FiO2 weaned down from 60% to 40%, and PEEP went down from 14 cm of water down to 10 cm of water. We will try to wean NMB, and will reassess his respiratory status shortly. We will proceed with conservative fluid management. The patient is negative about 500 mL over a 24- hour period. We will aim at -1 liter of total fluid balance today. The patient is on furosemide 40 mg IV b.i.d. We will continue with conservative oxygen management to maintain PaO2 between 70 and 100. We will continue sedation to improve the patient's ventilator synchrony. We will continue with head of bed elevated more than 35 degrees and deep venous thrombosis and gastrointestinal prophylaxis. Deep venous thrombosis prophylaxis will be mechanical due to recent hemorrhagic shock. The patient is unlikely to be able to tolerate enteral nutrition within the next 7 days, thus we will start PPN that will also allow us to prevent hypoglycemia. I will maintain blood glucose within 140-180 range. ccm time 40 min Javier Molina MD cc: [id number] TT: 05/28/2016 11:40:13 Confirmation # [id number] Dictation # [id number] kate 05/29/2016 06:50:39 MTDD
[2016-05-29] MEDS: Potassium Chloride 20 mEq 100 ML IVPB SCH ×4 (07:56→15:57)
--- NOTE | 2016-05-29 07:59 | CP.CCUPN ---
<Roger Britton - Last Filed: 05/29/16 11:11> CCU Subjective - Physician Review Subjective (Free Text): Pt s&e w ICU attending. Pt is sedated and is on neuromuscular blockade. Pt is intubated at fio2 40%, 12, 35, 350. On PPN. Melena slowing down. CCU Objective - Vital Signs / Intake & Output Vital Signs (Last 4 hours): Vital Signs Temp Pulse Resp Pulse Ox 05/29/16 06:20 108 H 35 H 93 L 05/29/16 06:00 103 H 35 H 93 L 05/29/16 05:50 105 H 26 H 93 L 05/29/16 05:40 101 H 35 H 93 L 05/29/16 05:20 105 H 35 H 92 L 05/29/16 05:13 114 H 35 H 92 L 05/29/16 05:11 116 H 36 H 92 L 05/29/16 05:00 113 H 35 H 92 L 05/29/16 04:40 105 H 35 H 92 L 05/29/16 04:20 102 H 35 H 91 L 05/29/16 04:00 98.5 F 111 H 35 H 91 L Intake and Output (Last 8hrs): Intake & Output 05/28/16 05/29/16 05/29/16 22:59 06:59 14:59 Intake Total 982 1032 Output Total 575 1550 Balance 407 -518 Weight 156 lb 1.6 oz Intake: IV 982 1032 Left Forearm 240 522 Right Internal Jugular 742 510 Output: Urine 575 1550 2-way Urethral 575 1550 Other: Voiding Method Indwelling Catheter Indwelling Catheter # Bowel Movements 1 - Physical Exam Head: Positive for: Atraumatic, Normocephalic. Negative for: Ecchymosis Conjunctiva: Positive for: Normal. Negative for: Injected, Icteric Mouth: Positive for: Moist Mucous Membranes Pharnyx: Negative for: ERYTHEMA Nose (Internal): Positive for: Normal Inspection, No Active Bleeding Respiratory/Chest: Negative for: Respiratory Distress, Tachypneic Cardiovascular: Positive for: Regular Rate and Rhythm, Normal S1, S2 Abdomen: Positive for: Hernias. Negative for: Tenderness, Distention, Peritoneal Signs, Rebound, Guarding Rectal: Positive for: Gross Blood, Melena Genitourinary Male: Positive for: Testicle Tenderness, Masses, Erythema, Hernias , Testicle Swelling, Other (Large [id number] R inguinal hernia: irreducible. 10x5cm L inguinal hernia : irreducible. Erythematous). Negative for: Normal External Genitalia Upper Extremity: Positive for: Edema, Swelling. Negative for: Erythema Lower Extremity: Positive for: Edema, Swelling. Negative for: Cyanosis Skin: Positive for: Warm, Dry Psychiatric: Negative for: Alert, Oriented x 3, Normal Insight - Medications Active Medications: Active Medications Generic Name Dose Route Start Last Admin Trade Name Freq PRN Reason Stop Dose Admin Acetaminophen 650 mg 05/17/16 08:33 Tylenol 325mg Tab PO Q4H PRN FEVER, PAIN Furosemide 40 mg 05/28/16 10:00 05/28/16 21:19 Lasix IVP 40 mg Q12 SHARIF Administration Metronidazole 100 mls @ 100 mls/hr 05/24/16 08:15 05/29/16 05:36 Flagyl IVPB 100 mls/hr Q8 SHARIF Administration Protocol Pantoprazole Sodium 100 mls @ 20 mls/hr 05/26/16 10:30 05/29/16 03:16 Protonix 40mg Ivpb IVPB 20 mls/hr .Q5H SHARIF Administration Midazolam 100 mg/100ml in NS 100 mls @ 1 mls/hr 05/26/16 10:42 05/28/16 20:59 Midazolam 100 Mg/100ml In Ns IV 7 mls/hr .Q24H PRN Administration Pain, moderate (4-7) Protocol 1 MG/HR Sodium Bicarbonate 75 meq/ 1,075 mls @ 100 mls/hr 05/26/16 14:30 05/27/16 04:47 Dextrose/Sodium Chloride IV 100 mls/hr .[id number] SHARIF Administration Norepinephrine Bitartrate 4 mg 254 mls @ 15.24 mls/hr 05/26/16 15:52 05/27/16 19:00 / Dextrose IV 0 mcg/min .[id number] PRN Titration TITRATE PER MD ORDER Protocol 4 MCG/MIN Amiodarone HCl/Dextrose 200 mls @ 33.333 mls/hr 05/26/16 16:00 Nexterone 360 Mg In D5w 200 Ml (Premix) IV .Q6H SHARIF Protocol 1 MG/MIN Meropenem 1 gm/ Sodium 100 mls @ 100 mls/hr 05/26/16 17:00 05/29/16 05:35 Chloride IVPB 06/01/16 23:59 100 mls/hr Q8 SHARIF Administration Protocol Fentanyl Citrate 100 mls @ 7.5 mls/hr 05/27/16 09:07 05/28/16 22:35 Fentanyl Citrate/Sodium Chloride 1 Mg/100 Ml IV 10 mls/hr .[id number] PRN Administration TITRATE PER MD ORDER Protocol 75 MCG/HR Cisatracurium Besylate 200 mg/ 200 mls @ 4.35 mls/hr 05/27/16 12:21 05/28/16 18 :27 Sodium Chloride IV 4.35 mls/hr .Q24H PRN Administration TITRATE PER MD ORDER Protocol 1 MCG/KG/MIN Multivitamins/Vitamin C 10 ml/ 1,011 mls @ 42 mls/hr 05/28/16 18:00 05/28/16 17 :28 Chromium/Copper/Manganese/ IV 05/31/16 17:59 42 mls/hr Zinc 1 ml/ Amino Acids .Q24H SHARIF Administration Vancomycin HCl 250 mls @ 167 mls/hr 05/28/16 18:00 05/29/16 05:00 Vancomycin 1gm IVPB 167 mls/hr Q12H SHARIF Administration Protocol Potassium Chloride 100 mls @ 50 mls/hr 05/29/16 07:45 Potassium Chloride 20 Meq/100 Ml IVPB 05/29/16 11:44 Q2H SHARIF Morphine Sulfate 2 mg 05/26/16 03:23 05/26/16 03:48 Morphine IVP 2 mg Q4H PRN Administration Pain, moderate (4-7) - Patient Studies Lab Studies: Microbiology Studies 05/28/16 06:15 C. difficile Antigen & Toxin A,B (M - Final Stool 05/24/16 09:10 Blood Culture - Preliminary Blood-Venous NO GROWTH AFTER 4 DAYS 05/24/16 09:00 Blood Culture - Preliminary Blood-Venous NO GROWTH AFTER 4 DAYS Lab Studies 05/29/16 05/29/16 05/29/16 Range/Units 05:58 05:15 01:09 WBC 28.3 H* (4.5-11.0) 10^3/ul RBC 3.62 (3.5-6.1) 10^6/uL Hgb 10.5 L (14.0-18.0) gm/dL Hct 33.5 L (42.0-52.0) % MCV 92.5 (80.0-105.0) fL MCH 29.0 (25.0-35.0) pg MCHC 31.3 (31.0-37.0) g/dl RDW 17.8 H (11.5-14.5) % Plt Count 189 (120.0-450.0) 10^3/uL MPV 10.6 (7.0-11.0) fl Neutrophils % (Manual) 81 H (50.0-70.0) % Band Neutrophils % 5 H (0-2) % Lymphocytes % (Manual) 3 L (22.0-35.0) % Monocytes % (Manual) 11 H (1.0-6.0) % Metamyelocytes % % Myelocytes % % Platelet Evaluation Normal (NORMAL) Hypochromasia 1+ Anisocytosis (manual) 1+ pCO2 (35-45) mm/Hg pO2 (80-100) mm/Hg HCO3 (21-28) mmol/L ABG pH (7.35-7.45) ABG Total CO2 (22-28) mmol.L ABG O2 Saturation (95-98) % ABG Base Excess (-2.0-3.0) mmol/L ABG Potassium (3.6-5.2) mmol/L Glucose (75-110) mg/dl Lactate (0.7-2.1) mmol/L Mechanical Rate FiO2 % Tidal Volume PEEP Sodium 147 (132-148) mmol/L Potassium 2.9 L* (3.6-5.0) mmol/L Chloride 105 (95-110) mmol/L Carbon Dioxide 36 H (21-33) mmol/L Anion Gap 9 L (10-20) BUN 30 H (7-21) mg/dL Creatinine 1.0 (0.5-1.4) mg/dL Est GFR ( Amer) > 60 Est GFR (Non-Af Amer) > 60 POC Glucose (mg/dL) 116 H 106 (65-110) mg/dL Random Glucose 106 (70-110) mg/dL Calcium 7.4 L (8.4-10.5) mg/dL Total Bilirubin 0.7 (0.2-1.3) mg/dL AST 173 H (15-59) U/L ALT 145 H (7-56) U/L Alkaline Phosphatase 70 (38-133) U/L Total Protein 5.0 L (5.8-8.3) g/dL Albumin 2.3 L (3.0-4.8) g/dL Globulin 2.7 gm/dL Albumin/Globulin Ratio 0.9 L (1.1-1.8) Procalcitonin (0.19-0.49) NG/ML Arterial Blood Potassium (3.6-5.2) mmol/L 05/28/16 05/28/16 05/28/16 Range/Units 21:10 17:23 16:21 WBC (4.5-11.0) 10^3/ul RBC (3.5-6.1) 10^6/uL Hgb (14.0-18.0) gm/dL Hct (42.0-52.0) % MCV (80.0-105.0) fL MCH (25.0-35.0) pg MCHC (31.0-37.0) g/dl RDW (11.5-14.5) % Plt Count (120.0-450.0) 10^3/uL MPV (7.0-11.0) fl Neutrophils % (Manual) (50.0-70.0) % Band Neutrophils % (0-2) % Lymphocytes % (Manual) (22.0-35.0) % Monocytes % (Manual) (1.0-6.0) % Metamyelocytes % % Myelocytes % % Platelet Evaluation (NORMAL) Hypochromasia Anisocytosis (manual) pCO2 (35-45) mm/Hg pO2 (80-100) mm/Hg HCO3 (21-28) mmol/L ABG pH (7.35-7.45) ABG Total CO2 (22-28) mmol.L ABG O2 Saturation (95-98) % ABG Base Excess (-2.0-3.0) mmol/L ABG Potassium (3.6-5.2) mmol/L Glucose (75-110) mg/dl Lactate (0.7-2.1) mmol/L Mechanical Rate FiO2 % Tidal Volume PEEP Sodium (132-148) mmol/L Potassium (3.6-5.0) mmol/L Chloride (95-110) mmol/L Carbon Dioxide (21-33) mmol/L Anion Gap (10-20) BUN (7-21) mg/dL Creatinine (0.5-1.4) mg/dL Est GFR ( Amer) Est GFR (Non-Af Amer) POC Glucose (mg/dL) 104 98 99 (65-110) mg/dL Random Glucose (70-110) mg/dL Calcium (8.4-10.5) mg/dL Total Bilirubin (0.2-1.3) mg/dL AST (15-59) U/L ALT (7-56) U/L Alkaline Phosphatase (38-133) U/L Total Protein (5.8-8.3) g/dL Albumin (3.0-4.8) g/dL Globulin gm/dL Albumin/Globulin Ratio (1.1-1.8) Procalcitonin (0.19-0.49) NG/ML Arterial Blood Potassium (3.6-5.2) mmol/L 05/28/16 05/28/16 05/28/16 Range/Units 15:06 13:52 13:05 WBC (4.5-11.0) 10^3/ul RBC (3.5-6.1) 10^6/uL Hgb (14.0-18.0) gm/dL Hct (42.0-52.0) % MCV (80.0-105.0) fL MCH (25.0-35.0) pg MCHC (31.0-37.0) g/dl RDW (11.5-14.5) % Plt Count (120.0-450.0) 10^3/uL MPV (7.0-11.0) fl Neutrophils % (Manual) (50.0-70.0) % Band Neutrophils % (0-2) % Lymphocytes % (Manual) (22.0-35.0) % Monocytes % (Manual) (1.0-6.0) % Metamyelocytes % % Myelocytes % % Platelet Evaluation (NORMAL) Hypochromasia Anisocytosis (manual) pCO2 (35-45) mm/Hg pO2 (80-100) mm/Hg HCO3 (21-28) mmol/L ABG pH (7.35-7.45) ABG Total CO2 (22-28) mmol.L ABG O2 Saturation (95-98) % ABG Base Excess (-2.0-3.0) mmol/L ABG Potassium (3.6-5.2) mmol/L Glucose (75-110) mg/dl Lactate (0.7-2.1) mmol/L Mechanical Rate FiO2 % Tidal Volume PEEP Sodium (132-148) mmol/L Potassium (3.6-5.0) mmol/L Chloride (95-110) mmol/L Carbon Dioxide (21-33) mmol/L Anion Gap (10-20) BUN (7-21) mg/dL Creatinine (0.5-1.4) mg/dL Est GFR ( Amer) Est GFR (Non-Af Amer) POC Glucose (mg/dL) 105 92 99 (65-110) mg/dL Random Glucose (70-110) mg/dL Calcium (8.4-10.5) mg/dL Total Bilirubin (0.2-1.3) mg/dL AST (15-59) U/L ALT (7-56) U/L Alkaline Phosphatase (38-133) U/L Total Protein (5.8-8.3) g/dL Albumin (3.0-4.8) g/dL Globulin gm/dL Albumin/Globulin Ratio (1.1-1.8) Procalcitonin (0.19-0.49) NG/ML Arterial Blood Potassium (3.6-5.2) mmol/L 05/28/16 05/28/16 05/28/16 Range/Units 11:56 11:08 09:52 WBC (4.5-11.0) 10^3/ul RBC (3.5-6.1) 10^6/uL Hgb (14.0-18.0) gm/dL Hct (42.0-52.0) % MCV (80.0-105.0) fL MCH (25.0-35.0) pg MCHC (31.0-37.0) g/dl RDW (11.5-14.5) % Plt Count (120.0-450.0) 10^3/uL MPV (7.0-11.0) fl Neutrophils % (Manual) (50.0-70.0) % Band Neutrophils % (0-2) % Lymphocytes % (Manual) (22.0-35.0) % Monocytes % (Manual) (1.0-6.0) % Metamyelocytes % % Myelocytes % % Platelet Evaluation (NORMAL) Hypochromasia Anisocytosis (manual) pCO2 (35-45) mm/Hg pO2 (80-100) mm/Hg HCO3 (21-28) mmol/L ABG pH (7.35-7.45) ABG Total CO2 (22-28) mmol.L ABG O2 Saturation (95-98) % ABG Base Excess (-2.0-3.0) mmol/L ABG Potassium (3.6-5.2) mmol/L Glucose (75-110) mg/dl Lactate (0.7-2.1) mmol/L Mechanical Rate FiO2 % Tidal Volume PEEP Sodium (132-148) mmol/L Potassium (3.6-5.0) mmol/L Chloride (95-110) mmol/L Carbon Dioxide (21-33) mmol/L Anion Gap (10-20) BUN (7-21) mg/dL Creatinine (0.5-1.4) mg/dL Est GFR ( Amer) Est GFR (Non-Af Amer) POC Glucose (mg/dL) 116 H 127 H 98 (65-110) mg/dL Random Glucose (70-110) mg/dL Calcium (8.4-10.5) mg/dL Total Bilirubin (0.2-1.3) mg/dL AST (15-59) U/L ALT (7-56) U/L Alkaline Phosphatase (38-133) U/L Total Protein (5.8-8.3) g/dL Albumin (3.0-4.8) g/dL Globulin gm/dL Albumin/Globulin Ratio (1.1-1.8) Procalcitonin (0.19-0.49) NG/ML Arterial Blood Potassium (3.6-5.2) mmol/L 05/28/16 05/28/16 05/28/16 Range/Units 09:33 09:17 09:03 WBC (4.5-11.0) 10^3/ul RBC (3.5-6.1) 10^6/uL Hgb (14.0-18.0) gm/dL Hct (42.0-52.0) % MCV (80.0-105.0) fL MCH (25.0-35.0) pg MCHC (31.0-37.0) g/dl RDW (11.5-14.5) % Plt Count (120.0-450.0) 10^3/uL MPV (7.0-11.0) fl Neutrophils % (Manual) (50.0-70.0) % Band Neutrophils % (0-2) % Lymphocytes % (Manual) (22.0-35.0) % Monocytes % (Manual) (1.0-6.0) % Metamyelocytes % % Myelocytes % % Platelet Evaluation (NORMAL) Hypochromasia Anisocytosis (manual) pCO2 46 H (35-45) mm/Hg pO2 72.0 L (80-100) mm/Hg HCO3 28.5 H (21-28) mmol/L ABG pH 7.40 (7.35-7.45) ABG Total CO2 29.9 H (22-28) mmol.L ABG O2 Saturation 96.8 (95-98) % ABG Base Excess 3.0 (-2.0-3.0) mmol/L ABG Potassium 3.0 L (3.6-5.2) mmol/L Glucose 87 (75-110) mg/dl Lactate 1.9 (0.7-2.1) mmol/L Mechanical Rate 35 FiO2 40.0 % Tidal Volume 350 PEEP 10 Sodium 146.0 (132-148) mmol/L Potassium (3.6-5.0) mmol/L Chloride 115.0 H (95-110) mmol/L Carbon Dioxide (21-33) mmol/L Anion Gap (10-20) BUN (7-21) mg/dL Creatinine (0.5-1.4) mg/dL Est GFR ( Amer) Est GFR (Non-Af Amer) POC Glucose (mg/dL) 77 (65-110) mg/dL Random Glucose (70-110) mg/dL Calcium (8.4-10.5) mg/dL Total Bilirubin (0.2-1.3) mg/dL AST (15-59) U/L ALT (7-56) U/L Alkaline Phosphatase (38-133) U/L Total Protein (5.8-8.3) g/dL Albumin (3.0-4.8) g/dL Globulin gm/dL Albumin/Globulin Ratio (1.1-1.8) Procalcitonin 9.05 H (0.19-0.49) NG/ML Arterial Blood Potassium 3.0 L (3.6-5.2) mmol/L 05/28/16 05/28/16 05/28/16 Range/Units 08:32 06:12 05:12 WBC (4.5-11.0) 10^3/ul RBC (3.5-6.1) 10^6/uL Hgb (14.0-18.0) gm/dL Hct (42.0-52.0) % MCV (80.0-105.0) fL MCH (25.0-35.0) pg MCHC (31.0-37.0) g/dl RDW (11.5-14.5) % Plt Count (120.0-450.0) 10^3/uL MPV (7.0-11.0) fl Neutrophils % (Manual) 83 H (50.0-70.0) % Band Neutrophils % 8 H (0-2) % Lymphocytes % (Manual) 2 L (22.0-35.0) % Monocytes % (Manual) 4 (1.0-6.0) % Metamyelocytes % 2 % Myelocytes % 1 % Platelet Evaluation (NORMAL) Hypochromasia Anisocytosis (manual) pCO2 (35-45) mm/Hg pO2 (80-100) mm/Hg HCO3 (21-28) mmol/L ABG pH (7.35-7.45) ABG Total CO2 (22-28) mmol.L ABG O2 Saturation (95-98) % ABG Base Excess (-2.0-3.0) mmol/L ABG Potassium (3.6-5.2) mmol/L Glucose (75-110) mg/dl Lactate (0.7-2.1) mmol/L Mechanical Rate FiO2 % Tidal Volume PEEP Sodium (132-148) mmol/L Potassium (3.6-5.0) mmol/L Chloride (95-110) mmol/L Carbon Dioxide (21-33) mmol/L Anion Gap (10-20) BUN (7-21) mg/dL Creatinine (0.5-1.4) mg/dL Est GFR ( Amer) Est GFR (Non-Af Amer) POC Glucose (mg/dL) 81 80 (65-110) mg/dL Random Glucose (70-110) mg/dL Calcium (8.4-10.5) mg/dL Total Bilirubin (0.2-1.3) mg/dL AST (15-59) U/L ALT (7-56) U/L Alkaline Phosphatase (38-133) U/L Total Protein (5.8-8.3) g/dL Albumin (3.0-4.8) g/dL Globulin gm/dL Albumin/Globulin Ratio (1.1-1.8) Procalcitonin (0.19-0.49) NG/ML Arterial Blood Potassium (3.6-5.2) mmol/L 05/27/16 Range/Units 21:24 WBC (4.5-11.0) 10^3/ul RBC (3.5-6.1) 10^6/uL Hgb (14.0-18.0) gm/dL Hct (42.0-52.0) % MCV (80.0-105.0) fL MCH (25.0-35.0) pg MCHC (31.0-37.0) g/dl RDW (11.5-14.5) % Plt Count (120.0-450.0) 10^3/uL MPV (7.0-11.0) fl Neutrophils % (Manual) (50.0-70.0) % Band Neutrophils % (0-2) % Lymphocytes % (Manual) (22.0-35.0) % Monocytes % (Manual) (1.0-6.0) % Metamyelocytes % % Myelocytes % % Platelet Evaluation (NORMAL) Hypochromasia Anisocytosis (manual) pCO2 (35-45) mm/Hg pO2 (80-100) mm/Hg HCO3 (21-28) mmol/L ABG pH (7.35-7.45) ABG Total CO2 (22-28) mmol.L ABG O2 Saturation (95-98) % ABG Base Excess (-2.0-3.0) mmol/L ABG Potassium (3.6-5.2) mmol/L Glucose (75-110) mg/dl Lactate (0.7-2.1) mmol/L Mechanical Rate FiO2 % Tidal Volume PEEP Sodium (132-148) mmol/L Potassium (3.6-5.0) mmol/L Chloride (95-110) mmol/L Carbon Dioxide (21-33) mmol/L Anion Gap (10-20) BUN (7-21) mg/dL Creatinine (0.5-1.4) mg/dL Est GFR ( Amer) Est GFR (Non-Af Amer) POC Glucose (mg/dL) 89 (65-110) mg/dL Random Glucose (70-110) mg/dL Calcium (8.4-10.5) mg/dL Total Bilirubin (0.2-1.3) mg/dL AST (15-59) U/L ALT (7-56) U/L Alkaline Phosphatase (38-133) U/L Total Protein (5.8-8.3) g/dL Albumin (3.0-4.8) g/dL Globulin gm/dL Albumin/Globulin Ratio (1.1-1.8) Procalcitonin (0.19-0.49) NG/ML Arterial Blood Potassium (3.6-5.2) mmol/L Laboratory Results - last 24 hr 05/27/16 05/28/16 05/28/16 21:24 05:12 06:12 WBC RBC Hgb Hct MCV MCH MCHC RDW Plt Count MPV Neutrophils % (Manual) 83 H Band Neutrophils % 8 H Lymphocytes % (Manual) 2 L Monocytes % (Manual) 4 Metamyelocytes % 2 Myelocytes % 1 Platelet Evaluation Hypochromasia Anisocytosis (manual) pCO2 pO2 HCO3 ABG pH ABG Total CO2 ABG O2 Saturation ABG Base Excess ABG Potassium Sodium Chloride Glucose Lactate Mechanical Rate FiO2 Tidal Volume PEEP Potassium Carbon Dioxide Anion Gap BUN Creatinine Est GFR ( Amer) Est GFR (Non-Af Amer) POC Glucose (mg/dL) 89 80 Random Glucose Calcium Total Bilirubin AST ALT Alkaline Phosphatase Total Protein Albumin Globulin Albumin/Globulin Ratio Procalcitonin Arterial Blood Potassium 05/28/16 05/28/16 05/28/16 08:32 09:03 09:17 WBC RBC Hgb Hct MCV MCH MCHC RDW Plt Count MPV Neutrophils % (Manual) Band Neutrophils % Lymphocytes % (Manual) Monocytes % (Manual) Metamyelocytes % Myelocytes % Platelet Evaluation Hypochromasia Anisocytosis (manual) pCO2 46 H pO2 72.0 L HCO3 28.5 H ABG pH 7.40 ABG Total CO2 29.9 H ABG O2 Saturation 96.8 ABG Base Excess 3.0 ABG Potassium 3.0 L Sodium 146.0 Chloride 115.0 H Glucose 87 Lactate 1.9 Mechanical Rate 35 FiO2 40.0 Tidal Volume 350 PEEP 10 Potassium Carbon Dioxide Anion Gap BUN Creatinine Est GFR ( Amer) Est GFR (Non-Af Amer) POC Glucose (mg/dL) 81 77 Random Glucose Calcium Total Bilirubin AST ALT Alkaline Phosphatase Total Protein Albumin Globulin Albumin/Globulin Ratio Procalcitonin Arterial Blood Potassium 3.0 L 05/28/16 05/28/16 05/28/16 09:33 09:52 11:08 WBC RBC Hgb Hct MCV MCH MCHC RDW Plt Count MPV Neutrophils % (Manual) Band Neutrophils % Lymphocytes % (Manual) Monocytes % (Manual) Metamyelocytes % Myelocytes % Platelet Evaluation Hypochromasia Anisocytosis (manual) pCO2 pO2 HCO3 ABG pH ABG Total CO2 ABG O2 Saturation ABG Base Excess ABG Potassium Sodium Chloride Glucose Lactate Mechanical Rate FiO2 Tidal Volume PEEP Potassium Carbon Dioxide Anion Gap BUN Creatinine Est GFR ( Amer) Est GFR (Non-Af Amer) POC Glucose (mg/dL) 98 127 H Random Glucose Calcium Total Bilirubin AST ALT Alkaline Phosphatase Total Protein Albumin Globulin Albumin/Globulin Ratio Procalcitonin 9.05 H Arterial Blood Potassium 05/28/16 05/28/16 05/28/16 11:56 13:05 13:52 WBC RBC Hgb Hct MCV MCH MCHC RDW Plt Count MPV Neutrophils % (Manual) Band Neutrophils % Lymphocytes % (Manual) Monocytes % (Manual) Metamyelocytes % Myelocytes % Platelet Evaluation Hypochromasia Anisocytosis (manual) pCO2 pO2 HCO3 ABG pH ABG Total CO2 ABG O2 Saturation ABG Base Excess ABG Potassium Sodium Chloride Glucose Lactate Mechanical Rate FiO2 Tidal Volume PEEP Potassium Carbon Dioxide Anion Gap BUN Creatinine Est GFR ( Amer) Est GFR (Non-Af Amer) POC Glucose (mg/dL) 116 H 99 92 Random Glucose Calcium Total Bilirubin AST ALT Alkaline Phosphatase Total Protein Albumin Globulin Albumin/Globulin Ratio Procalcitonin Arterial Blood Potassium 05/28/16 05/28/16 05/28/16 15:06 16:21 17:23 WBC RBC Hgb Hct MCV MCH MCHC RDW Plt Count MPV Neutrophils % (Manual) Band Neutrophils % Lymphocytes % (Manual) Monocytes % (Manual) Metamyelocytes % Myelocytes % Platelet Evaluation Hypochromasia Anisocytosis (manual) pCO2 pO2 HCO3 ABG pH ABG Total CO2 ABG O2 Saturation ABG Base Excess ABG Potassium Sodium Chloride Glucose Lactate Mechanical Rate FiO2 Tidal Volume PEEP Potassium Carbon Dioxide Anion Gap BUN Creatinine Est GFR ( Amer) Est GFR (Non-Af Amer) POC Glucose (mg/dL) 105 99 98 Random Glucose Calcium Total Bilirubin AST ALT Alkaline Phosphatase Total Protein Albumin Globulin Albumin/Globulin Ratio Procalcitonin Arterial Blood Potassium 05/28/16 05/29/16 05/29/16 21:10 01:09 05:15 WBC 28.3 H* RBC 3.62 Hgb 10.5 L Hct 33.5 L MCV 92.5 MCH 29.0 MCHC 31.3 RDW 17.8 H Plt Count 189 MPV 10.6 Neutrophils % (Manual) 81 H Band Neutrophils % 5 H Lymphocytes % (Manual) 3 L Monocytes % (Manual) 11 H Metamyelocytes % Myelocytes % Platelet Evaluation Normal Hypochromasia 1+ Anisocytosis (manual) 1+ pCO2 pO2 HCO3 ABG pH ABG Total CO2 ABG O2 Saturation ABG Base Excess ABG Potassium Sodium 147 Chloride 105 Glucose Lactate Mechanical Rate FiO2 Tidal Volume PEEP Potassium 2.9 L* Carbon Dioxide 36 H Anion Gap 9 L BUN 30 H Creatinine 1.0 Est GFR ( Amer) > 60 Est GFR (Non-Af Amer) > 60 POC Glucose (mg/dL) 104 106 Random Glucose 106 Calcium 7.4 L Total Bilirubin 0.7 AST 173 H ALT 145 H Alkaline Phosphatase 70 Total Protein 5.0 L Albumin 2.3 L Globulin 2.7 Albumin/Globulin Ratio 0.9 L Procalcitonin Arterial Blood Potassium 05/29/16 05:58 WBC RBC Hgb Hct MCV MCH MCHC RDW Plt Count MPV Neutrophils % (Manual) Band Neutrophils % Lymphocytes % (Manual) Monocytes % (Manual) Metamyelocytes % Myelocytes % Platelet Evaluation Hypochromasia Anisocytosis (manual) pCO2 pO2 HCO3 ABG pH ABG Total CO2 ABG O2 Saturation ABG Base Excess ABG Potassium Sodium Chloride Glucose Lactate Mechanical Rate FiO2 Tidal Volume PEEP Potassium Carbon Dioxide Anion Gap BUN Creatinine Est GFR ( Amer) Est GFR (Non-Af Amer) POC Glucose (mg/dL) 116 H Random Glucose Calcium Total Bilirubin AST ALT Alkaline Phosphatase Total Protein Albumin Globulin Albumin/Globulin Ratio Procalcitonin Arterial Blood Potassium Fingerstick Blood Sugar Results: 116 Review of Systems - Review of Systems Systems not reviewed;Unavailable: Intubated Critical Care Progress Note - Ventilator Checklist Head of Bed 30 Degrees: Yes Daily Sedation Vacation: Yes PUD Prophalyxis: Yes DVT Prophylaxis: Yes - Vent Settings TIDAL VOLUME:: 350 RESP RATE:: 35 FIO2:: 40 PEEP:: 12 - Extremities/Vascular Does the Patient have a Central Venous Catheter?: Yes Does the Patient need a Central Venous Catheter?: Yes Does the Patient have a Gleason Catheter?: Yes Does the Patient need a Gleason Catheter?: Yes - Prophylaxis GI Prophylaxis GI: PPI - Nutrition Nutrition: Nutrition Category Date Time Status NPO Diet [DIET] Diets 05/26/16 Breakfast Ordered Assessment/Plan - Assessment and Plan (Free Text) Assessment: The patient is a 66 year old man with a history of developmental delay, iron deficiency anemia, and degenerative arthritis who was admitted to [facility] on with bilateral, non-reducible inguinal hernias and a CT-scan showing a large cecal mass, concerning for malignancy. As a result, he underwent an exploratory laparotomy and right hemicolectomy (with pathology of cecal mass still pending) . Because of the hemicolectomy, and the large size of the patients bilateral inguinal hernias could not be repaired during the procedure. Post-operatively, the patient developed marked leukocytosis (presumed to be secondary to post-op reactive atelectasis) which is being treated with IV Merrem and Flagyl by ID consult. In addition, recently, he developed intermittent rectal bleeding, which prompted a stat nuclear bleeding scan and CT-AP. The CT scan shows an incarcerated right hernia sac with secondary small bowel obstruction, which general surgery manually reduced but reccuring. The bleeding scan shows active bleeding most likely from the sigmoid colon. Bleeding resolving. Pt intubated. Hypoxic respiratory failure ventilator dependent 2/2 aspiration pneumonia and ARDS Hemorrhagic shock 2/2 GI bleed: resolving Neuro: Mental Retardation Maintain normothermia -Fentanyl/versed/Nimbex drips CV: Hemodynamically stable: Off pressors Maintain MAP >65 Albumin Pulm: CXR : b/l infiltration Maintain Sp02>90 Vent setting at 40% fio2/12/35/250 ABX Lasix Possible trach GI: S/P R nimo for SBO and tumor Bloody BM: resolving NPO Protonix drip Hold PO meds Hold hepatin sub Q, colace GI on board Heme: 6 PRBC given CBC 10 today Transfuse if Hgb <8 Renal/: Urine output 3L /24hrs. Cr1 Hernia recurrent bilaterally Continue to monitor electrolytes will replace/replete as needed Lasix ID: Urine cx 05/16 : Proteus sentitive for cefetpime and Cipro Leukocystosis 28.3 today Silva- cultures pending Merrem/Flagyl ID on board Endo: Maintain euglycemia GI ppx: PTX DVT ppx: SCDs Disposition: Guarded. Contact family for possible DNR/DNI Case seen, reviewed and discussed with attending <Javier Molina - Last Filed: 05/29/16 17:28> CCU Objective - Vital Signs / Intake & Output Vital Signs (Last 4 hours): Vital Signs Pulse Resp BP Pulse Ox 05/29/16 15:09 101 H 35 H 101/53 L 92 L 05/29/16 13:30 99 H 35 H 94/49 L 95 Intake and Output (Last 8hrs): Intake & Output 05/29/16 05/29/16 05/29/16 06:59 14:59 22:59 Intake Total 1032 2410 Output Total 1550 950 Balance -518 1460 Weight 156 lb 1.6 oz Intake: IV 1032 Left Forearm 522 Right Internal Jugular 510 TPN/PPN 504 Albumin 400 Other 1506 Output: Urine 1550 950 2-way Urethral 1550 950 Emesis 0 Other: Voiding Method Indwelling Catheter # Bowel Movements 1 0 - Medications Active Medications: Active Medications Generic Name Dose Route Start Last Admin Trade Name Freq PRN Reason Stop Dose Admin Acetaminophen 650 mg 05/17/16 08:33 Tylenol 325mg Tab PO Q4H PRN FEVER, PAIN Furosemide 40 mg 05/28/16 10:00 05/29/16 09:17 Lasix IVP 40 mg Q12 SHARIF Administration Metronidazole 100 mls @ 100 mls/hr 05/24/16 08:15 05/29/16 13:04 Flagyl IVPB 100 mls/hr Q8 SHARIF Administration Protocol Pantoprazole Sodium 100 mls @ 20 mls/hr 05/26/16 10:30 05/29/16 13:26 Protonix 40mg Ivpb IVPB 20 mls/hr .Q5H SHARIF Administration Midazolam 100 mg/100ml in NS 100 mls @ 1 mls/hr 05/26/16 10:42 05/29/16 10:01 Midazolam 100 Mg/100ml In Ns IV 7 mls/hr .Q24H PRN Administration Pain, moderate (4-7) Protocol 1 MG/HR Sodium Bicarbonate 75 meq/ 1,075 mls @ 100 mls/hr 05/26/16 14:30 05/27/16 04:47 Dextrose/Sodium Chloride IV 100 mls/hr .[id number] SHARIF Administration Norepinephrine Bitartrate 4 mg 254 mls @ 15.24 mls/hr 05/26/16 15:52 05/27/16 19:00 / Dextrose IV 0 mcg/min .[id number] PRN Titration TITRATE PER MD ORDER Protocol 4 MCG/MIN Amiodarone HCl/Dextrose 200 mls @ 33.333 mls/hr 05/26/16 16:00 Nexterone 360 Mg In D5w 200 Ml (Premix) IV .Q6H SHARIF Protocol 1 MG/MIN Meropenem 1 gm/ Sodium 100 mls @ 100 mls/hr 05/26/16 17:00 05/29/16 13:03 Chloride IVPB 06/01/16 23:59 100 mls/hr Q8 SHARIF Administration Protocol Fentanyl Citrate 100 mls @ 7.5 mls/hr 05/27/16 09:07 05/29/16 16:58 Fentanyl Citrate/Sodium Chloride 1 Mg/100 Ml IV 10 mls/hr .[id number] PRN Administration TITRATE PER MD ORDER Protocol 75 MCG/HR Cisatracurium Besylate 200 mg/ 200 mls @ 4.35 mls/hr 05/27/16 12:21 05/28/16 18 :27 Sodium Chloride IV 4.35 mls/hr .Q24H PRN Administration TITRATE PER MD ORDER Protocol 1 MCG/KG/MIN Multivitamins/Vitamin C 10 ml/ 1,011 mls @ 42 mls/hr 05/28/16 18:00 03/13/17 17 :01 Chromium/Copper/Manganese/ IV 05/31/16 17:59 42 mls/hr Zinc 1 ml/ Amino Acids .Q24H SHARIF Administration Vancomycin HCl 250 mls @ 167 mls/hr 05/28/16 18:00 05/29/16 17:02 Vancomycin 1gm IVPB 167 mls/hr Q12H SHARIF Administration Protocol Potassium Chloride 100 mls @ 50 mls/hr 05/29/16 13:45 05/29/16 15:57 Potassium Chloride 20 Meq/100 Ml IVPB 05/29/16 17:44 50 mls/hr Q2H SHARIF Administration Morphine Sulfate 2 mg 05/26/16 03:23 05/26/16 03:48 Morphine IVP 2 mg Q4H PRN Administration Pain, moderate (4-7) - Patient Studies Lab Studies: Microbiology Studies 05/24/16 09:10 Blood Culture - Final Blood-Venous NO GROWTH AFTER 5 DAYS Gram Stain - Final TEST NOT PERFORMED 05/24/16 09:00 Blood Culture - Final Blood-Venous NO GROWTH AFTER 5 DAYS Gram Stain - Final TEST NOT PERFORMED 05/28/16 06:15 C. difficile Antigen & Toxin A,B (M - Final Stool Lab Studies 05/29/16 05/29/16 05/29/16 Range/Units 13:44 12:57 08:59 WBC (4.5-11.0) 10^3/ul RBC (3.5-6.1) 10^6/uL Hgb (14.0-18.0) gm/dL Hct (42.0-52.0) % MCV (80.0-105.0) fL MCH (25.0-35.0) pg MCHC (31.0-37.0) g/dl RDW (11.5-14.5) % Plt Count (120.0-450.0) 10^3/uL MPV (7.0-11.0) fl Neutrophils % (Manual) (50.0-70.0) % Band Neutrophils % (0-2) % Lymphocytes % (Manual) (22.0-35.0) % Monocytes % (Manual) (1.0-6.0) % Platelet Evaluation (NORMAL) Hypochromasia Anisocytosis (manual) pCO2 (35-45) mm/Hg pO2 (80-100) mm/Hg HCO3 (21-28) mmol/L ABG pH (7.35-7.45) ABG Total CO2 (22-28) mmol.L ABG O2 Saturation (95-98) % ABG Base Excess (-2.0-3.0) mmol/L ABG Potassium (3.6-5.2) mmol/L Sodium (132-148) mmol/L Chloride (98-107) mmol/L Glucose (75-110) mg/dl Lactate (0.7-2.1) mmol/L Mechanical Rate FiO2 % Tidal Volume PEEP Potassium (3.6-5.0) mmol/L Carbon Dioxide (21-33) mmol/L Anion Gap (10-20) BUN (7-21) mg/dL Creatinine (0.5-1.4) mg/dL Est GFR ( Amer) Est GFR (Non-Af Amer) POC Glucose (mg/dL) 89 98 (65-110) mg/dL Random Glucose (70-110) mg/dL Calcium (8.4-10.5) mg/dL Magnesium 2.1 (1.7-2.2) mg/dL Total Bilirubin (0.2-1.3) mg/dL AST (15-59) U/L ALT (7-56) U/L Alkaline Phosphatase (38-133) U/L Total Protein (5.8-8.3) g/dL Albumin (3.0-4.8) g/dL Globulin gm/dL Albumin/Globulin Ratio (1.1-1.8) Arterial Blood Potassium (3.6-5.2) mmol/L Crossmatch 05/29/16 05/29/16 05/29/16 Range/Units 07:55 05:58 05:15 WBC 28.3 H* (4.5-11.0) 10^3/ul RBC 3.62 (3.5-6.1) 10^6/uL Hgb 10.5 L (14.0-18.0) gm/dL Hct 33.5 L (42.0-52.0) % MCV 92.5 (80.0-105.0) fL MCH 29.0 (25.0-35.0) pg MCHC 31.3 (31.0-37.0) g/dl RDW 17.8 H (11.5-14.5) % Plt Count 189 (120.0-450.0) 10^3/uL MPV 10.6 (7.0-11.0) fl Neutrophils % (Manual) 81 H (50.0-70.0) % Band Neutrophils % 5 H (0-2) % Lymphocytes % (Manual) 3 L (22.0-35.0) % Monocytes % (Manual) 11 H (1.0-6.0) % Platelet Evaluation Normal (NORMAL) Hypochromasia 1+ Anisocytosis (manual) 1+ pCO2 53 H (35-45) mm/Hg pO2 64.0 L (80-100) mm/Hg HCO3 32.8 H (21-28) mmol/L ABG pH 7.40 (7.35-7.45) ABG Total CO2 34.4 H (22-28) mmol.L ABG O2 Saturation 94.1 L (95-98) % ABG Base Excess 6.5 H (-2.0-3.0) mmol/L ABG Potassium 2.6 L (3.6-5.2) mmol/L Sodium 145.0 147 (132-148) mmol/L Chloride 115.0 H 105 (98-107) mmol/L Glucose 102 (75-110) mg/dl Lactate 1.5 (0.7-2.1) mmol/L Mechanical Rate 35 FiO2 40.0 % Tidal Volume 350 PEEP 12 Potassium 2.9 L* (3.6-5.0) mmol/L Carbon Dioxide 36 H (21-33) mmol/L Anion Gap 9 L (10-20) BUN 30 H (7-21) mg/dL Creatinine 1.0 (0.5-1.4) mg/dL Est GFR ( Amer) > 60 Est GFR (Non-Af Amer) > 60 POC Glucose (mg/dL) 116 H (65-110) mg/dL Random Glucose 106 (70-110) mg/dL Calcium 7.4 L (8.4-10.5) mg/dL Magnesium (1.7-2.2) mg/dL Total Bilirubin 0.7 (0.2-1.3) mg/dL AST 173 H (15-59) U/L ALT 145 H (7-56) U/L Alkaline Phosphatase 70 (38-133) U/L Total Protein 5.0 L (5.8-8.3) g/dL Albumin 2.3 L (3.0-4.8) g/dL Globulin 2.7 gm/dL Albumin/Globulin Ratio 0.9 L (1.1-1.8) Arterial Blood Potassium 2.6 L (3.6-5.2) mmol/L Crossmatch 05/29/16 05/28/16 05/28/16 Range/Units 01:09 21:10 17:23 WBC (4.5-11.0) 10^3/ul RBC (3.5-6.1) 10^6/uL Hgb (14.0-18.0) gm/dL Hct (42.0-52.0) % MCV (80.0-105.0) fL MCH (25.0-35.0) pg MCHC (31.0-37.0) g/dl RDW (11.5-14.5) % Plt Count (120.0-450.0) 10^3/uL MPV (7.0-11.0) fl Neutrophils % (Manual) (50.0-70.0) % Band Neutrophils % (0-2) % Lymphocytes % (Manual) (22.0-35.0) % Monocytes % (Manual) (1.0-6.0) % Platelet Evaluation (NORMAL) Hypochromasia Anisocytosis (manual) pCO2 (35-45) mm/Hg pO2 (80-100) mm/Hg HCO3 (21-28) mmol/L ABG pH (7.35-7.45) ABG Total CO2 (22-28) mmol.L ABG O2 Saturation (95-98) % ABG Base Excess (-2.0-3.0) mmol/L ABG Potassium (3.6-5.2) mmol/L Sodium (132-148) mmol/L Chloride (98-107) mmol/L Glucose (75-110) mg/dl Lactate (0.7-2.1) mmol/L Mechanical Rate FiO2 % Tidal Volume PEEP Potassium (3.6-5.0) mmol/L Carbon Dioxide (21-33) mmol/L Anion Gap (10-20) BUN (7-21) mg/dL Creatinine (0.5-1.4) mg/dL Est GFR ( Amer) Est GFR (Non-Af Amer) POC Glucose (mg/dL) 106 104 98 (65-110) mg/dL Random Glucose (70-110) mg/dL Calcium (8.4-10.5) mg/dL Magnesium (1.7-2.2) mg/dL Total Bilirubin (0.2-1.3) mg/dL AST (15-59) U/L ALT (7-56) U/L Alkaline Phosphatase (38-133) U/L Total Protein (5.8-8.3) g/dL Albumin (3.0-4.8) g/dL Globulin gm/dL Albumin/Globulin Ratio (1.1-1.8) Arterial Blood Potassium (3.6-5.2) mmol/L Crossmatch 05/28/16 05/28/16 05/28/16 Range/Units 16:21 15:06 13:52 WBC (4.5-11.0) 10^3/ul RBC (3.5-6.1) 10^6/uL Hgb (14.0-18.0) gm/dL Hct (42.0-52.0) % MCV (80.0-105.0) fL MCH (25.0-35.0) pg MCHC (31.0-37.0) g/dl RDW (11.5-14.5) % Plt Count (120.0-450.0) 10^3/uL MPV (7.0-11.0) fl Neutrophils % (Manual) (50.0-70.0) % Band Neutrophils % (0-2) % Lymphocytes % (Manual) (22.0-35.0) % Monocytes % (Manual) (1.0-6.0) % Platelet Evaluation (NORMAL) Hypochromasia Anisocytosis (manual) pCO2 (35-45) mm/Hg pO2 (80-100) mm/Hg HCO3 (21-28) mmol/L ABG pH (7.35-7.45) ABG Total CO2 (22-28) mmol.L ABG O2 Saturation (95-98) % ABG Base Excess (-2.0-3.0) mmol/L ABG Potassium (3.6-5.2) mmol/L Sodium (132-148) mmol/L Chloride (98-107) mmol/L Glucose (75-110) mg/dl Lactate (0.7-2.1) mmol/L Mechanical Rate FiO2 % Tidal Volume PEEP Potassium (3.6-5.0) mmol/L Carbon Dioxide (21-33) mmol/L Anion Gap (10-20) BUN (7-21) mg/dL Creatinine (0.5-1.4) mg/dL Est GFR ( Amer) Est GFR (Non-Af Amer) POC Glucose (mg/dL) 99 105 92 (65-110) mg/dL Random Glucose (70-110) mg/dL Calcium (8.4-10.5) mg/dL Magnesium (1.7-2.2) mg/dL Total Bilirubin (0.2-1.3) mg/dL AST (15-59) U/L ALT (7-56) U/L Alkaline Phosphatase (38-133) U/L Total Protein (5.8-8.3) g/dL Albumin (3.0-4.8) g/dL Globulin gm/dL Albumin/Globulin Ratio (1.1-1.8) Arterial Blood Potassium (3.6-5.2) mmol/L Crossmatch 05/28/16 05/28/16 05/28/16 Range/Units 13:05 11:56 11:08 WBC (4.5-11.0) 10^3/ul RBC (3.5-6.1) 10^6/uL Hgb (14.0-18.0) gm/dL Hct (42.0-52.0) % MCV (80.0-105.0) fL MCH (25.0-35.0) pg MCHC (31.0-37.0) g/dl RDW (11.5-14.5) % Plt Count (120.0-450.0) 10^3/uL MPV (7.0-11.0) fl Neutrophils % (Manual) (50.0-70.0) % Band Neutrophils % (0-2) % Lymphocytes % (Manual) (22.0-35.0) % Monocytes % (Manual) (1.0-6.0) % Platelet Evaluation (NORMAL) Hypochromasia Anisocytosis (manual) pCO2 (35-45) mm/Hg pO2 (80-100) mm/Hg HCO3 (21-28) mmol/L ABG pH (7.35-7.45) ABG Total CO2 (22-28) mmol.L ABG O2 Saturation (95-98) % ABG Base Excess (-2.0-3.0) mmol/L ABG Potassium (3.6-5.2) mmol/L Sodium (132-148) mmol/L Chloride (98-107) mmol/L Glucose (75-110) mg/dl Lactate (0.7-2.1) mmol/L Mechanical Rate FiO2 % Tidal Volume PEEP Potassium (3.6-5.0) mmol/L Carbon Dioxide (21-33) mmol/L Anion Gap (10-20) BUN (7-21) mg/dL Creatinine (0.5-1.4) mg/dL Est GFR ( Amer) Est GFR (Non-Af Amer) POC Glucose (mg/dL) 99 116 H 127 H (65-110) mg/dL Random Glucose (70-110) mg/dL Calcium (8.4-10.5) mg/dL Magnesium (1.7-2.2) mg/dL Total Bilirubin (0.2-1.3) mg/dL AST (15-59) U/L ALT (7-56) U/L Alkaline Phosphatase (38-133) U/L Total Protein (5.8-8.3) g/dL Albumin (3.0-4.8) g/dL Globulin gm/dL Albumin/Globulin Ratio (1.1-1.8) Arterial Blood Potassium (3.6-5.2) mmol/L Crossmatch 05/28/16 05/28/16 05/28/16 Range/Units 09:52 09:03 08:32 WBC (4.5-11.0) 10^3/ul RBC (3.5-6.1) 10^6/uL Hgb (14.0-18.0) gm/dL Hct (42.0-52.0) % MCV (80.0-105.0) fL MCH (25.0-35.0) pg MCHC (31.0-37.0) g/dl RDW (11.5-14.5) % Plt Count (120.0-450.0) 10^3/uL MPV (7.0-11.0) fl Neutrophils % (Manual) (50.0-70.0) % Band Neutrophils % (0-2) % Lymphocytes % (Manual) (22.0-35.0) % Monocytes % (Manual) (1.0-6.0) % Platelet Evaluation (NORMAL) Hypochromasia Anisocytosis (manual) pCO2 (35-45) mm/Hg pO2 (80-100) mm/Hg HCO3 (21-28) mmol/L ABG pH (7.35-7.45) ABG Total CO2 (22-28) mmol.L ABG O2 Saturation (95-98) % ABG Base Excess (-2.0-3.0) mmol/L ABG Potassium (3.6-5.2) mmol/L Sodium (132-148) mmol/L Chloride (98-107) mmol/L Glucose (75-110) mg/dl Lactate (0.7-2.1) mmol/L Mechanical Rate FiO2 % Tidal Volume PEEP Potassium (3.6-5.0) mmol/L Carbon Dioxide (21-33) mmol/L Anion Gap (10-20) BUN (7-21) mg/dL Creatinine (0.5-1.4) mg/dL Est GFR ( Amer) Est GFR (Non-Af Amer) POC Glucose (mg/dL) 98 77 81 (65-110) mg/dL Random Glucose (70-110) mg/dL Calcium (8.4-10.5) mg/dL Magnesium (1.7-2.2) mg/dL Total Bilirubin (0.2-1.3) mg/dL AST (15-59) U/L ALT (7-56) U/L Alkaline Phosphatase (38-133) U/L Total Protein (5.8-8.3) g/dL Albumin (3.0-4.8) g/dL Globulin gm/dL Albumin/Globulin Ratio (1.1-1.8) Arterial Blood Potassium (3.6-5.2) mmol/L Crossmatch 05/26/16 Range/Units 11:30 WBC (4.5-11.0) 10^3/ul RBC (3.5-6.1) 10^6/uL Hgb (14.0-18.0) gm/dL Hct (42.0-52.0) % MCV (80.0-105.0) fL MCH (25.0-35.0) pg MCHC (31.0-37.0) g/dl RDW (11.5-14.5) % Plt Count (120.0-450.0) 10^3/uL MPV (7.0-11.0) fl Neutrophils % (Manual) (50.0-70.0) % Band Neutrophils % (0-2) % Lymphocytes % (Manual) (22.0-35.0) % Monocytes % (Manual) (1.0-6.0) % Platelet Evaluation (NORMAL) Hypochromasia Anisocytosis (manual) pCO2 (35-45) mm/Hg pO2 (80-100) mm/Hg HCO3 (21-28) mmol/L ABG pH (7.35-7.45) ABG Total CO2 (22-28) mmol.L ABG O2 Saturation (95-98) % ABG Base Excess (-2.0-3.0) mmol/L ABG Potassium (3.6-5.2) mmol/L Sodium (132-148) mmol/L Chloride (98-107) mmol/L Glucose (75-110) mg/dl Lactate (0.7-2.1) mmol/L Mechanical Rate FiO2 % Tidal Volume PEEP Potassium (3.6-5.0) mmol/L Carbon Dioxide (21-33) mmol/L Anion Gap (10-20) BUN (7-21) mg/dL Creatinine (0.5-1.4) mg/dL Est GFR ( Amer) Est GFR (Non-Af Amer) POC Glucose (mg/dL) (65-110) mg/dL Random Glucose (70-110) mg/dL Calcium (8.4-10.5) mg/dL Magnesium (1.7-2.2) mg/dL Total Bilirubin (0.2-1.3) mg/dL AST (15-59) U/L ALT (7-56) U/L Alkaline Phosphatase (38-133) U/L Total Protein (5.8-8.3) g/dL Albumin (3.0-4.8) g/dL Globulin gm/dL Albumin/Globulin Ratio (1.1-1.8) Arterial Blood Potassium (3.6-5.2) mmol/L Crossmatch See Detail Laboratory Results - last 24 hr 05/26/16 05/28/16 05/28/16 11:30 08:32 09:03 WBC RBC Hgb Hct MCV MCH MCHC RDW Plt Count MPV Neutrophils % (Manual) Band Neutrophils % Lymphocytes % (Manual) Monocytes % (Manual) Platelet Evaluation Hypochromasia Anisocytosis (manual) pCO2 pO2 HCO3 ABG pH ABG Total CO2 ABG O2 Saturation ABG Base Excess ABG Potassium Glucose Lactate Mechanical Rate FiO2 Tidal Volume PEEP Sodium Potassium Chloride Carbon Dioxide Anion Gap BUN Creatinine Est GFR ( Amer) Est GFR (Non-Af Amer) POC Glucose (mg/dL) 81 77 Random Glucose Calcium Magnesium Total Bilirubin AST ALT Alkaline Phosphatase Total Protein Albumin Globulin Albumin/Globulin Ratio Arterial Blood Potassium Crossmatch See Detail 05/28/16 05/28/16 05/28/16 09:52 11:08 11:56 WBC RBC Hgb Hct MCV MCH MCHC RDW Plt Count MPV Neutrophils % (Manual) Band Neutrophils % Lymphocytes % (Manual) Monocytes % (Manual) Platelet Evaluation Hypochromasia Anisocytosis (manual) pCO2 pO2 HCO3 ABG pH ABG Total CO2 ABG O2 Saturation ABG Base Excess ABG Potassium Glucose Lactate Mechanical Rate FiO2 Tidal Volume PEEP Sodium Potassium Chloride Carbon Dioxide Anion Gap BUN Creatinine Est GFR ( Amer) Est GFR (Non-Af Amer) POC Glucose (mg/dL) 98 127 H 116 H Random Glucose Calcium Magnesium Total Bilirubin AST ALT Alkaline Phosphatase Total Protein Albumin Globulin Albumin/Globulin Ratio Arterial Blood Potassium Crossmatch 05/28/16 05/28/16 05/28/16 13:05 13:52 15:06 WBC RBC Hgb Hct MCV MCH MCHC RDW Plt Count MPV Neutrophils % (Manual) Band Neutrophils % Lymphocytes % (Manual) Monocytes % (Manual) Platelet Evaluation Hypochromasia Anisocytosis (manual) pCO2 pO2 HCO3 ABG pH ABG Total CO2 ABG O2 Saturation ABG Base Excess ABG Potassium Glucose Lactate Mechanical Rate FiO2 Tidal Volume PEEP Sodium Potassium Chloride Carbon Dioxide Anion Gap BUN Creatinine Est GFR ( Amer) Est GFR (Non-Af Amer) POC Glucose (mg/dL) 99 92 105 Random Glucose Calcium Magnesium Total Bilirubin AST ALT Alkaline Phosphatase Total Protein Albumin Globulin Albumin/Globulin Ratio Arterial Blood Potassium Crossmatch 05/28/16 05/28/16 05/28/16 16:21 17:23 21:10 WBC RBC Hgb Hct MCV MCH MCHC RDW Plt Count MPV Neutrophils % (Manual) Band Neutrophils % Lymphocytes % (Manual) Monocytes % (Manual) Platelet Evaluation Hypochromasia Anisocytosis (manual) pCO2 pO2 HCO3 ABG pH ABG Total CO2 ABG O2 Saturation ABG Base Excess ABG Potassium Glucose Lactate Mechanical Rate FiO2 Tidal Volume PEEP Sodium Potassium Chloride Carbon Dioxide Anion Gap BUN Creatinine Est GFR ( Amer) Est GFR (Non-Af Amer) POC Glucose (mg/dL) 99 98 104 Random Glucose Calcium Magnesium Total Bilirubin AST ALT Alkaline Phosphatase Total Protein Albumin Globulin Albumin/Globulin Ratio Arterial Blood Potassium Crossmatch 05/29/16 05/29/16 05/29/16 01:09 05:15 05:58 WBC 28.3 H* RBC 3.62 Hgb 10.5 L Hct 33.5 L MCV 92.5 MCH 29.0 MCHC 31.3 RDW 17.8 H Plt Count 189 MPV 10.6 Neutrophils % (Manual) 81 H Band Neutrophils % 5 H Lymphocytes % (Manual) 3 L Monocytes % (Manual) 11 H Platelet Evaluation Normal Hypochromasia 1+ Anisocytosis (manual) 1+ pCO2 pO2 HCO3 ABG pH ABG Total CO2 ABG O2 Saturation ABG Base Excess ABG Potassium Glucose Lactate Mechanical Rate FiO2 Tidal Volume PEEP Sodium 147 Potassium 2.9 L* Chloride 105 Carbon Dioxide 36 H Anion Gap 9 L BUN 30 H Creatinine 1.0 Est GFR ( Amer) > 60 Est GFR (Non-Af Amer) > 60 POC Glucose (mg/dL) 106 116 H Random Glucose 106 Calcium 7.4 L Magnesium Total Bilirubin 0.7 AST 173 H ALT 145 H Alkaline Phosphatase 70 Total Protein 5.0 L Albumin 2.3 L Globulin 2.7 Albumin/Globulin Ratio 0.9 L Arterial Blood Potassium Crossmatch 05/29/16 05/29/16 05/29/16 07:55 08:59 12:57 WBC RBC Hgb Hct MCV MCH MCHC RDW Plt Count MPV Neutrophils % (Manual) Band Neutrophils % Lymphocytes % (Manual) Monocytes % (Manual) Platelet Evaluation Hypochromasia Anisocytosis (manual) pCO2 53 H pO2 64.0 L HCO3 32.8 H ABG pH 7.40 ABG Total CO2 34.4 H ABG O2 Saturation 94.1 L ABG Base Excess 6.5 H ABG Potassium 2.6 L Glucose 102 Lactate 1.5 Mechanical Rate 35 FiO2 40.0 Tidal Volume 350 PEEP 12 Sodium 145.0 Potassium Chloride 115.0 H Carbon Dioxide Anion Gap BUN Creatinine Est GFR ( Amer) Est GFR (Non-Af Amer) POC Glucose (mg/dL) 98 89 Random Glucose Calcium Magnesium Total Bilirubin AST ALT Alkaline Phosphatase Total Protein Albumin Globulin Albumin/Globulin Ratio Arterial Blood Potassium 2.6 L Crossmatch 05/29/16 13:44 WBC RBC Hgb Hct MCV MCH MCHC RDW Plt Count MPV Neutrophils % (Manual) Band Neutrophils % Lymphocytes % (Manual) Monocytes % (Manual) Platelet Evaluation Hypochromasia Anisocytosis (manual) pCO2 pO2 HCO3 ABG pH ABG Total CO2 ABG O2 Saturation ABG Base Excess ABG Potassium Glucose Lactate Mechanical Rate FiO2 Tidal Volume PEEP Sodium Potassium Chloride Carbon Dioxide Anion Gap BUN Creatinine Est GFR ( Amer) Est GFR (Non-Af Amer) POC Glucose (mg/dL) Random Glucose Calcium Magnesium 2.1 Total Bilirubin AST ALT Alkaline Phosphatase Total Protein Albumin Globulin Albumin/Globulin Ratio Arterial Blood Potassium Crossmatch Critical Care Progress Note - Nutrition Nutrition: Nutrition Category Date Time Status NPO Diet [DIET] Diets 05/26/16 Breakfast Ordered Addendum Addendum: 05/29/16 17:27 patient was seen and examined at bedside with Dr. Roger Britton. Please see Dr. Molina note
[2016-05-29 08:00] LABS: ABG MECHANICAL RATE 35; ARTERIAL BLOOD GAS HCO3 32.8 mmol/L (21-28); ATERIAL BLOOD GAS PEEP 12
[2016-05-29] MEDS: Fentanyl 1000mcg/100ml NS 100 ML IV PRN ×2 (08:10→16:58)
--- NOTE | 2016-05-29 09:15 | RAD ---
HISTORY: ards hypoxemic respiratory failure COMPARISON: 05/28/2016 FINDINGS: LUNGS: No significant change in bilateral infiltrates and vascular congestion PLEURA: No significant pleural effusion identified, no pneumothorax apparent. CARDIOVASCULAR: Normal. OSSEOUS STRUCTURES: No significant abnormalities. VISUALIZED UPPER ABDOMEN: Normal. OTHER FINDINGS: Endotracheal and nasogastric tube in satisfactory position IMPRESSION: No change in bilateral infiltrates
--- NOTE | 2016-05-29 09:16 | PN ---
DATE: 05/29/2016 The patient seen and examined at bedside. PHYSICAL EXAMINATION: VITAL SIGNS: He is on Nimbex drip 0.7 mcg/kg/minute, Versed 7 mg per hour and fentanyl at 100 mcg per hour. The patient is on Protonix drip 8 mg per hour. On that setting, his blood pressure is 99/50, heart rate 120, oxygen saturation 93% on 40% FIO2 and PEEP 12 (down from 15), plateau pressure 30, peak pressure 40, tidal volume 350, respiratory rate 35, FIO2 40%. HEAD AND NECK: Atraumatic. LUNGS: A few crackles bilaterally, but better than yesterday. HEART: Irregular rate and rhythm. S1, S2 distant. ABDOMEN: Soft, nontender and nondistended. MUSCULOSKELETAL: No C/C/E. NEUROLOGIC AND PSYCHIATRIC: The patient is sedated and on neuromuscular blockade. SKIN: Moist. LABORATORY DATA: WBC 283, hemoglobin 10.5, platelet count 189. Sodium 147, potassium 2.9 (supplemented), chloride 105, BUN 30, creatinine 1 (up from 0.9). AST 173 (down from 245), ALT 145, albumin 2.3 (down from 2.6). MEDICATIONS: TPN, Fentanyl drip, Flagyl, Lasix 40 mg IV q. 12, meropenem, morphine p.r.n., ____, Protonix drip, Tylenol p.r.n., vancomycin, Versed drip. Chest x-ray showed improvement in bilateral fluffy infiltrates. ASSESSMENT AND PLAN: This is an 85-year-old gentleman who is recovering from hemorrhagic shock post exploratory laparotomy with cecal mask resection and hemicolectomy which was complicated by anastomotic bleeding resulting in hemorrhagic shock. The patient also had some coffee ground vomiting which is thought to be secondary to synchronous upper gastrointestinal bleed due to hemorrhagic gastritis (as per gastroenterology service) complicated by aspiration pneumonitis/pneumonia and ARDS requiring intubation and protective lung ventilation strategy. The bleeding resolved and hemoglobin relatively stable. After aggressive conservative fluid management/diuresis to optimize his respiratory status, hemodynamics relatively stable. His blood pressure is low normotensive. Will give bolus of iso-oncotic albumin and will continue with conservative fluid management. The patient is sedated and on neuromuscular blockade with Nimbex drip. Concern for intra-abdominal abscess or other process that would account for rising leukocytosis present, however, patient too unstable for CAT scan of the abdomen and pelvis at present time. The patient is on broad-spectrum antibiotics. ID service is following him and septic workup is in progress. Electrolytes will be supplemented. 1. Neurology: The patient is sedated with fentanyl and Versed and he is on neuromuscular blockade. 2. Pulmonary: The patient has acute respiratory distress syndrome, which is improving. Chest x-ray showed some improvement in bilateral fluffy infiltrates. We are employing protective lung ventilation strategy with tidal volume 6 mL per predicted body weight and Ppl less than 30. His dynamic compliance somewhat improved, which allowed weaning PEEP from 15 to 12. Fi02 still at 40. 02 sat 93-95. ABG shows some increase in pc02 which worrisome as may indicate increased space which can be a poor prognostic feature in ARDS. Will continue with conservative fluid management after correction of his electrolytes (potassium 2.9 and being aggressively supplemented). The patient will receive several boluses of albumin while continuing lasix iv.. Will continue with head of bed elevated more than 35 degrees. Will continue with VAP bundle. The patient is not a candidate for prone position ventilation as he recently had surgery. 3. Cardiovascular: The patient is hemodynamically relatively stable except for mild tachycardia. He does have some premature atrial contractions and occasional premature ventricular contractions. Will supplement aggressively his electrolytes. 4. Gastrointestinal: The patient's bleeding stopped. He is on Protonix drip for his hemorrhagic gastritis. Gastroenterology service is following him as well. 5. Renal. The patient's creatinine is 1. He is still making good urine. He is negative more than 1 liter over the last 24 hour period. We will give a bolus of albumin to maintain intravascular volume. Will continue with euvolemia , euglycemia for additional nephroprotective effect. 6. Infectious disease: The patient is too unstable for a CAT scan of the abdomen and pelvis to rule out abscess or other intraabdominal pathology. However, patient is on broad-spectrum antibiotics and septic workup is ongoing. ID service is following him as well. His leukocytosis slightly trended down. He is afebrile. 7. Endocrine: Will maintain euglycemia for additional nephroprotective effect. Will avoid hypoglycemia. The patient is on PPN. ccm time 40 min Javier Molina MD cc: [id number] TT: 05/29/2016 09:15:53 Confirmation # [id number] Dictation # [id number] MTDD
[2016-05-29] MEDS: Midazolam 100 mg/100ml in NS 100 ML IV PRN (10:01)
[2016-05-29] MEDS ORDERED: Barium Sulfate Susp 2.1% w/v, 2.0% w/w 450 mL Bottle PO ONE (10:39)
--- NOTE | 2016-05-29 11:50 | CP.PCM.PN ---
Subjective - Date & Time of Evaluation Date of Evaluation: 05/29/16 Time of Evaluation: 11:47 - Subjective Subjective: Surgery: Dr. Peterson Pt seen and examined. Intubated and unresponsive. Per nursing no acute events overnight. No more bleeding/clots from rectum. Objective - Vital Signs/Intake and Output Vital Signs (last 24 hours): Temp Pulse Resp BP Pulse Ox 97.6 F 108 H 35 H 95/50 L 97 05/29/16 08:21 05/29/16 09:40 05/29/16 09:40 05/29/16 09:20 05/29/16 09:40 Intake and Output: 05/29/16 05/29/16 06:59 18:59 Intake Total 1032 Output Total 1550 Balance -518 - Medications Medications: Current Medications Acetaminophen (Tylenol 325mg Tab) 650 mg PO Q4H PRN PRN Reason: FEVER, PAIN Furosemide (Lasix) 40 mg IVP Q12 SHARIF Last Admin: 05/29/16 09:17 Dose: 40 mg Metronidazole (Flagyl) 100 mls @ 100 mls/hr IVPB Q8 SHARIF PRN Reason: Protocol Last Admin: 05/29/16 05:36 Dose: 100 mls/hr Pantoprazole Sodium (Protonix 40mg Ivpb) 100 mls @ 20 mls/hr IVPB .Q5H SHARIF Last Admin: 05/29/16 08:14 Dose: 20 mls/hr Midazolam 100 mg/100ml in NS (Midazolam 100 Mg/100ml In Ns) 100 mls @ 1 mls/hr IV .Q24H PRN; Protocol; 1 MG/HR PRN Reason: Pain, moderate (4-7) Last Admin: 05/29/16 10:01 Dose: 7 mls/hr Sodium Bicarbonate 75 meq/ (Dextrose/Sodium Chloride) 1,075 mls @ 100 mls/hr IV .[id number] SHARIF Last Admin: 05/27/16 04:47 Dose: 100 mls/hr Norepinephrine Bitartrate 4 mg (/ Dextrose) 254 mls @ 15.24 mls/hr IV .[id number] PRN; Protocol; 4 MCG/MIN PRN Reason: TITRATE PER MD ORDER Last Titration: 05/27/16 19:00 Dose: 0 mcg/min Amiodarone HCl/Dextrose (Nexterone 360 Mg In D5w 200 Ml (Premix)) 200 mls @ 33.333 mls/hr IV .Q6H SHARIF; 1 MG/MIN PRN Reason: Protocol Meropenem 1 gm/ Sodium (Chloride) 100 mls @ 100 mls/hr IVPB Q8 SHARIF PRN Reason: Protocol Stop: 06/01/16 23:59 Last Admin: 05/29/16 05:35 Dose: 100 mls/hr Fentanyl Citrate (Fentanyl Citrate/Sodium Chloride 1 Mg/100 Ml) 100 mls @ 7.5 mls/hr IV .[id number] PRN; Protocol; 75 MCG/HR PRN Reason: TITRATE PER MD ORDER Last Admin: 05/29/16 08:10 Dose: 10 mls/hr Cisatracurium Besylate 200 mg/ (Sodium Chloride) 200 mls @ 4.35 mls/hr IV .Q24H PRN; Protocol; 1 MCG/KG/MIN PRN Reason: TITRATE PER MD ORDER Last Admin: 05/28/16 18:27 Dose: 4.35 mls/hr Multivitamins/Vitamin C 10 ml/Chromium/Copper/Manganese/Zinc 1 ml/ Amino Acids 1,011 mls @ 42 mls/hr IV .Q24H SHARIF Stop: 05/31/16 17:59 Last Admin: 05/28/16 17:28 Dose: 42 mls/hr Vancomycin HCl (Vancomycin 1gm) 250 mls @ 167 mls/hr IVPB Q12H SHARIF PRN Reason: Protocol Last Admin: 05/29/16 05:00 Dose: 167 mls/hr Morphine Sulfate (Morphine) 2 mg IVP Q4H PRN PRN Reason: Pain, moderate (4-7) Last Admin: 05/26/16 03:48 Dose: 2 mg - Labs Labs: 05/29/16 05:15 05/29/16 05:15 PT 16.7 Seconds (9.9-11.8) H 05/27/16 17:35 INR 1.55 (0.93-1.08) H 05/27/16 17:35 APTT 28.1 Seconds (23.7-30.8) 05/27/16 17:35 - Constitutional Appears: Non-toxic, No Acute Distress - Head Exam Head Exam: ATRAUMATIC, NORMOCEPHALIC - ENT Exam Additional comments: OGT in place - Neck Exam Neck Exam: Full ROM - Respiratory Exam Additional comments: intubated - GI/Abdominal Exam GI & Abdominal Exam: Soft. absent: Distended, Firm, Guarding, Rigid, Tenderness Additional comments: Incision C/D/I, large B/L inguinal hernia, reducible - Extremities Exam Extremities Exam: Pedal Edema. absent: Calf Tenderness - Neurological Exam Neurological Exam: absent: Alert, Awake, Oriented x3 - Skin Skin Exam: Dry, Normal Color, Warm Assessment and Plan - Assessment and Plan (Free Text) Assessment: 85M w. B/L inguinal hernias and cecal mass, s/p ex-lap w. R hemicolectomy, POD#7 , complicated by GI bleed which is resolving -GI bleed likely from anastomosis site -H/H stable, continue to monitor, transfuse PRN -repeat CT w. PO contrast when pt is stable enough to go to CT scan -c/w abx -will continue to follow closely -d/w attending Mily PGY2
--- NOTE | 2016-05-29 13:01 | PN ---
DATE: 05/29/2016 This 85-year-old male was examined in critical care unit bed #1 in the presence of Dr. Javier Molina, lead etl developer. The patient remains intubated, sedated and is being treated for multiple complications status post a right hemicolectomy for a cecal mass. Postoperatively, his clinical course was complicated by massive GI bleeding, bright red blood per rectum, hematemesis and now aspiration pneumonia. The patient is now in critical care, intubated, sedated, receiving blood cell transfusion products including blood, fresh frozen plasma, platelets and albumin, and also has been treated aggressively with Levophed IV, bicarbonate drips, Lasix and peripheral nutrition. PHYSICAL EXAMINATION: GENERAL: The patient is sedated and intubated. VITAL SIGNS: Temperature is 98.3, respirations 35, pulse 100, blood pressure 95 /50. I and O thus far today: 1032 mL in, 1550 mL out. HEAD: Normocephalic, atraumatic. EYES: No icterus. EARS: Clear. THROAT: With ET tube in place. NECK: Supple. HEART: S1, S2. LUNGS: With occasional rhonchi bilaterally. ABDOMEN: Soft. SCROTUM: Bilateral inguinal hernias. EXTREMITIES: No edema. Wearing SCD compression stockings. VASCULAR: Legs warm to touch. PSYCHOLOGICAL: Sedated. NEUROLOGIC: Sedated. LABORATORY DATA: White count 28,300, hemoglobin 10.5, hematocrit 33.5, platelets 189,000. Sodium 147, K 2.9, chloride 105, bicarbonate 36, BUN 30, creatinine 1.0, random blood sugar 116. Bilirubin 0.7, AST 173, ALT 145, alkaline phosphatase 70, albumin low 2.3. Chest x-ray this morning shows bilateral infiltrates and vascular congestion. 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 Victoria from infectious disease , also with volume overload which is being treated aggressively with diuretics ventilation support now with an FIO2 of 40% and PEEP of 12, with electrolyte imbalances including hypokalemia which is now being supplemented and hypoalbuminemia which is being supplemented with intravenous albumin, also with tachycardia, gastrointestinal bleeding for which he is receiving intravenous Protonix drip, and patient is being treated supportively with parenteral nutrition and remains too unstable for a CT of the abdomen to rule out any intraabdominal abscess or pathology at this point in time. PLAN: To continue IV albumin, IV PPN, IV sedation, IV Flagyl, IV Lasix while monitoring I's and O's and electrolytes, IV meropenem, IV Protonix drip, IV vancomycin, pulmonary toiletry, pulmonary ventilatory support. The patient remains n.p.o. He has an NG tube draining gastric contents. He is wearing anti -embolism SCD (sequential compression device) stockings. He is being followed by surgery, infectious disease, cardiology, gastroenterology and intensive care consultants. He is scheduled for serial labs and supportive therapy. Innumerable attempts to reach his nephew, Sagar Potter, who is his next of kin who had given consent prior to this event in time, have been unsuccessfull. The patient's overall prognosis remains extremely poor. The patient would probably best be served by a DNR status with supportive comfort measures, and overall prognosis remains guarded at present. Approximately 60 minutes was spent in the care, coordination of care, review of care and discussion of care with co-consultants regarding this patient today, and attempts to reach the patient's family member were again unsuccessful. I have asked social service to help with this problem if possible. Codi Pringle MD cc: [phone] TT: 05/29/2016 13:00:38 Confirmation # [id number] Dictation # [id number] GOFF
--- NOTE | 2016-05-29 13:38 | PN ---
DATE: 05/29/2016 SUBJECTIVE: Seen and examined at the bedside. The patient remains sedated with neuro block and carlos alberto ins intubated, remains with an OG tube. The last drain is about 25 mL from 05/28. A few drops are se en in the canister. VITAL SIGNS: Temperature is 98.3 axillary, pulse is 108, respirations 35, blood pressure 95/50. LABORATORY DATA: WBC is 28.3, H and H is 10.5 and 33.5, platelets of 189. Chem: Sodium is 147, K i s 2.9. BUN 30, creatinine is 1.0. Total bilirubin is 0.7, AST 173, ALT 145, alkaline phosphatase is 70. The patient had a chest x-ray this morning. There is no significant change in bilateral infilt rates and vascular congestion. No significant pleural effusion identified. No pneumothorax. ET tub e and NG tube is in satisfactory position. IMPRESSION: No change in bilateral infiltrates. PHYSICAL EXAMINATION: HEENT: Sclerae are anicteric. NECK: Supple. The patient is intubated and unresponsive. LUNGS: Decreased breath sounds. ABDOMEN: Soft, not distended. Incision is clean, dry and intact with large bilateral inguinal herni as. EXTREMITIES: Positive for pedal edema. NEUROLOGIC: The patient is unresponsive. He is sedated. Neuro block. ASSESSMENT: An 85-year-old male with bilateral inguinal hernias, cecal mass, status post exploratory lap with right hemicolectomy. The patient with gastrointestinal bleed, likely from the anastomotic site. He has had no further bleeding or clots. Improving leukocytosis. The patient is status post blood transfusion. His H and H is stable now. The patient did have endoscopy done about 6 weeks ago . No ulcerations were seen. 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 PLAN: Once stable, the patient will get repeat CT scan of abdomen and pelvis. The patient had stool for C. diff sent, which was negative. Continue to monitor H and H. He is also hypokalemic, receivin g potassium replacement. Continue Protonix drip. He is getting IV antibiotics, vancomycin. He is o n meropenem and Flagyl. He is also getting PPN, getting Lasix. He is on a fentanyl drip. Continue close surgical followup. ID as per ICU team. Follow up pathology. The patient was seen and case dis cussed with Dr. Luna. Henrietta KIRBY cc: [phone] TT: 05/29/2016 13:37:42 Confirmation # [id number] Dictation # [id number] rn
--- NOTE | 2016-05-29 13:52 | CP.PCM.CON ---
History of Present Illness - History of Present Illness History of Present Illness: Palliative care consult requested by Dr Pringle Reason: Goals of care 85 year old resident of [facility]([place]) sent for evaluation of large ileocecal lesion and ventral hernia. The patient had a right hemicolectomy for cecal mass. He suffered a GI bleed after surgery. The patient is now in hemorrhagic shock, intubated on Levophed and Bicarbonate. Receiving blood products. Family History: Unknown Social History: Former smoker,no alcohol or dug abuse. Advance Care Planning: There is no Advance Directive. Shirin, Sagar Potter and Demetri Potter are listed as next of kin Review of systems: Unable to obtain Past Patient History - Past Social History Smoking Status: Former Smoker - CARDIAC Hx Pacemaker: No - PULMONARY Hx Respiratory Disorders: No - NEUROLOGICAL Hx Paralysis: No - HEENT Hx HEENT Problems: No - ENDOCRINE/METABOLIC Hx Endocrine Disorders: No - HEMATOLOGICAL/ONCOLOGICAL Hx Blood Transfusions: No Hx Blood Transfusion Reaction: No - INTEGUMENTARY Hx Dermatological Problems: No - MUSCULOSKELETAL/RHEUMATOLOGICAL Hx Arthritis: Yes - GASTROINTESTINAL Hx Gastrointestinal Disorders: Yes (HERNIA) - GENITOURINARY/GYNECOLOGICAL Hx Genitourinary Disorders: Yes (ENLARGED PROSTATE) - PSYCHIATRIC Hx Substance Use: No - SURGICAL HISTORY Hx Surgeries: No - ANESTHESIA Hx Anesthesia Reactions: No Hx Malignant Hyperthermia: No Meds Allergies/Adverse Reactions: Allergies Allergy/AdvReac Type Severity Reaction Status Date / Time No Known Allergies Allergy Verified 05/16/16 17:12 - Medications Medications: Current Medications Acetaminophen (Tylenol 325mg Tab) 650 mg PO Q4H PRN PRN Reason: FEVER, PAIN Albumin Human (Albumin Human 25% (12.5 Gm/50 Ml)) 12.5 gm IV Q1H SHARIF Stop: 05/29/16 15:46 Furosemide (Lasix) 40 mg IVP Q12 SHARIF Last Admin: 05/29/16 09:17 Dose: 40 mg Metronidazole (Flagyl) 100 mls @ 100 mls/hr IVPB Q8 SHARIF PRN Reason: Protocol Last Admin: 05/29/16 13:04 Dose: 100 mls/hr Pantoprazole Sodium (Protonix 40mg Ivpb) 100 mls @ 20 mls/hr IVPB .Q5H SHARIF Last Admin: 05/29/16 13:26 Dose: 20 mls/hr Midazolam 100 mg/100ml in NS (Midazolam 100 Mg/100ml In Ns) 100 mls @ 1 mls/hr IV .Q24H PRN; Protocol; 1 MG/HR PRN Reason: Pain, moderate (4-7) Last Admin: 05/29/16 10:01 Dose: 7 mls/hr Sodium Bicarbonate 75 meq/ (Dextrose/Sodium Chloride) 1,075 mls @ 100 mls/hr IV .[id number] SHARIF Last Admin: 05/27/16 04:47 Dose: 100 mls/hr Norepinephrine Bitartrate 4 mg (/ Dextrose) 254 mls @ 15.24 mls/hr IV .[id number] PRN; Protocol; 4 MCG/MIN PRN Reason: TITRATE PER MD ORDER Last Titration: 05/27/16 19:00 Dose: 0 mcg/min Amiodarone HCl/Dextrose (Nexterone 360 Mg In D5w 200 Ml (Premix)) 200 mls @ 33.333 mls/hr IV .Q6H SHARIF; 1 MG/MIN PRN Reason: Protocol Meropenem 1 gm/ Sodium (Chloride) 100 mls @ 100 mls/hr IVPB Q8 SHARIF PRN Reason: Protocol Stop: 06/01/16 23:59 Last Admin: 05/29/16 13:03 Dose: 100 mls/hr Fentanyl Citrate (Fentanyl Citrate/Sodium Chloride 1 Mg/100 Ml) 100 mls @ 7.5 mls/hr IV .[id number] PRN; Protocol; 75 MCG/HR PRN Reason: TITRATE PER MD ORDER Last Admin: 05/29/16 08:10 Dose: 10 mls/hr Cisatracurium Besylate 200 mg/ (Sodium Chloride) 200 mls @ 4.35 mls/hr IV .Q24H PRN; Protocol; 1 MCG/KG/MIN PRN Reason: TITRATE PER MD ORDER Last Admin: 05/28/16 18:27 Dose: 4.35 mls/hr Multivitamins/Vitamin C 10 ml/Chromium/Copper/Manganese/Zinc 1 ml/ Amino Acids 1,011 mls @ 42 mls/hr IV .Q24H SHARIF Stop: 05/31/16 17:59 Last Admin: 05/28/16 17:28 Dose: 42 mls/hr Vancomycin HCl (Vancomycin 1gm) 250 mls @ 167 mls/hr IVPB Q12H SHARIF PRN Reason: Protocol Last Admin: 05/29/16 05:00 Dose: 167 mls/hr Potassium Chloride (Potassium Chloride 20 Meq/100 Ml) 100 mls @ 50 mls/hr IVPB Q2H [facility] Stop: 05/29/16 17:44 Magnesium Sulfate/Dextrose (Magnesium Sulfate 1 Gm/100 Ml D5w) 100 mls @ 100 mls/hr IVPB ONCE ONE Stop: 05/29/16 14:32 Morphine Sulfate (Morphine) 2 mg IVP Q4H PRN PRN Reason: Pain, moderate (4-7) Last Admin: 05/26/16 03:48 Dose: 2 mg Physical Exam - Constitutional Appears: Chronically Ill - Head Exam Head Exam: NORMAL INSPECTION - Eye Exam Eye Exam: Normal appearance, PERRL - ENT Exam ENT Exam: Mucous Membranes Moist - Respiratory Exam Respiratory Exam: Decreased Breath Sounds, Rhonchi, NORMAL BREATHING PATTERN - Cardiovascular Exam Cardiovascular Exam: REGULAR RHYTHM, +S1, +S2 - GI/Abdominal Exam GI & Abdominal Exam: Soft - Extremities Exam Extremities exam: Positive for: normal inspection, pedal pulses present - Neurological Exam Neurological exam: Altered - Skin Skin Exam: Dry, Pallor - Additional Findings Additional findings: Palliate performance scale rating 10 % Results - Vital Signs Recent Vital Signs: Last Vital Signs Temp 98.3 F 05/29/16 11:58 Pulse 99 H 05/29/16 13:30 Resp 35 H 05/29/16 13:30 BP 94/49 L 05/29/16 13:30 Pulse Ox 95 05/29/16 13:30 - Labs Result Diagrams: 05/29/16 05:15 05/29/16 05:15 Labs: Laboratory Results - last 24 hr 05/26/16 05/28/16 05/28/16 11:30 08:32 09:03 WBC RBC Hgb Hct MCV MCH MCHC RDW Plt Count MPV Neutrophils % (Manual) Band Neutrophils % Lymphocytes % (Manual) Monocytes % (Manual) Platelet Evaluation Hypochromasia Anisocytosis (manual) pCO2 pO2 HCO3 ABG pH ABG Total CO2 ABG O2 Saturation ABG Base Excess ABG Potassium Glucose Lactate Mechanical Rate FiO2 Tidal Volume PEEP Sodium Potassium Chloride Carbon Dioxide Anion Gap BUN Creatinine Est GFR ( Amer) Est GFR (Non-Af Amer) POC Glucose (mg/dL) 81 77 Random Glucose Calcium Total Bilirubin AST ALT Alkaline Phosphatase Total Protein Albumin Globulin Albumin/Globulin Ratio Procalcitonin Arterial Blood Potassium Crossmatch See Detail 05/28/16 05/28/16 05/28/16 09:33 09:52 11:08 WBC RBC Hgb Hct MCV MCH MCHC RDW Plt Count MPV Neutrophils % (Manual) Band Neutrophils % Lymphocytes % (Manual) Monocytes % (Manual) Platelet Evaluation Hypochromasia Anisocytosis (manual) pCO2 pO2 HCO3 ABG pH ABG Total CO2 ABG O2 Saturation ABG Base Excess ABG Potassium Glucose Lactate Mechanical Rate FiO2 Tidal Volume PEEP Sodium Potassium Chloride Carbon Dioxide Anion Gap BUN Creatinine Est GFR ( Amer) Est GFR (Non-Af Amer) POC Glucose (mg/dL) 98 127 H Random Glucose Calcium Total Bilirubin AST ALT Alkaline Phosphatase Total Protein Albumin Globulin Albumin/Globulin Ratio Procalcitonin 9.05 H Arterial Blood Potassium Crossmatch 05/28/16 05/28/16 05/28/16 11:56 13:05 13:52 WBC RBC Hgb Hct MCV MCH MCHC RDW Plt Count MPV Neutrophils % (Manual) Band Neutrophils % Lymphocytes % (Manual) Monocytes % (Manual) Platelet Evaluation Hypochromasia Anisocytosis (manual) pCO2 pO2 HCO3 ABG pH ABG Total CO2 ABG O2 Saturation ABG Base Excess ABG Potassium Glucose Lactate Mechanical Rate FiO2 Tidal Volume PEEP Sodium Potassium Chloride Carbon Dioxide Anion Gap BUN Creatinine Est GFR ( Amer) Est GFR (Non-Af Amer) POC Glucose (mg/dL) 116 H 99 92 Random Glucose Calcium Total Bilirubin AST ALT Alkaline Phosphatase Total Protein Albumin Globulin Albumin/Globulin Ratio Procalcitonin Arterial Blood Potassium Crossmatch 05/28/16 05/28/16 05/28/16 15:06 16:21 17:23 WBC RBC Hgb Hct MCV MCH MCHC RDW Plt Count MPV Neutrophils % (Manual) Band Neutrophils % Lymphocytes % (Manual) Monocytes % (Manual) Platelet Evaluation Hypochromasia Anisocytosis (manual) pCO2 pO2 HCO3 ABG pH ABG Total CO2 ABG O2 Saturation ABG Base Excess ABG Potassium Glucose Lactate Mechanical Rate FiO2 Tidal Volume PEEP Sodium Potassium Chloride Carbon Dioxide Anion Gap BUN Creatinine Est GFR ( Amer) Est GFR (Non-Af Amer) POC Glucose (mg/dL) 105 99 98 Random Glucose Calcium Total Bilirubin AST ALT Alkaline Phosphatase Total Protein Albumin Globulin Albumin/Globulin Ratio Procalcitonin Arterial Blood Potassium Crossmatch 05/28/16 05/29/16 05/29/16 21:10 01:09 05:15 WBC 28.3 H* RBC 3.62 Hgb 10.5 L Hct 33.5 L MCV 92.5 MCH 29.0 MCHC 31.3 RDW 17.8 H Plt Count 189 MPV 10.6 Neutrophils % (Manual) 81 H Band Neutrophils % 5 H Lymphocytes % (Manual) 3 L Monocytes % (Manual) 11 H Platelet Evaluation Normal Hypochromasia 1+ Anisocytosis (manual) 1+ pCO2 pO2 HCO3 ABG pH ABG Total CO2 ABG O2 Saturation ABG Base Excess ABG Potassium Glucose Lactate Mechanical Rate FiO2 Tidal Volume PEEP Sodium 147 Potassium 2.9 L* Chloride 105 Carbon Dioxide 36 H Anion Gap 9 L BUN 30 H Creatinine 1.0 Est GFR ( Amer) > 60 Est GFR (Non-Af Amer) > 60 POC Glucose (mg/dL) 104 106 Random Glucose 106 Calcium 7.4 L Total Bilirubin 0.7 AST 173 H ALT 145 H Alkaline Phosphatase 70 Total Protein 5.0 L Albumin 2.3 L Globulin 2.7 Albumin/Globulin Ratio 0.9 L Procalcitonin Arterial Blood Potassium Crossmatch 05/29/16 05/29/16 05:58 07:55 WBC RBC Hgb Hct MCV MCH MCHC RDW Plt Count MPV Neutrophils % (Manual) Band Neutrophils % Lymphocytes % (Manual) Monocytes % (Manual) Platelet Evaluation Hypochromasia Anisocytosis (manual) pCO2 53 H pO2 64.0 L HCO3 32.8 H ABG pH 7.40 ABG Total CO2 34.4 H ABG O2 Saturation 94.1 L ABG Base Excess 6.5 H ABG Potassium 2.6 L Glucose 102 Lactate 1.5 Mechanical Rate 35 FiO2 40.0 Tidal Volume 350 PEEP 12 Sodium 145.0 Potassium Chloride 115.0 H Carbon Dioxide Anion Gap BUN Creatinine Est GFR ( Amer) Est GFR (Non-Af Amer) POC Glucose (mg/dL) 116 H Random Glucose Calcium Total Bilirubin AST ALT Alkaline Phosphatase Total Protein Albumin Globulin Albumin/Globulin Ratio Procalcitonin Arterial Blood Potassium 2.6 L Crossmatch Assessment & Plan - Assessment and Plan (Free Text) Assessment: 85 year male s/p right nimo colectomy and ventral hernia repair,GI bleeding, hemmorhagic shock. Patient is sedated, unresponsive. He remains on pressor agents. Attempts have been made by Dr. Molina, Dr Pringle and correctional casework specialist to reach patient's nephews. SWJacque has also contacted [place] certified social workers in health care to inquire about additional contacts or relevant patient information. I was asked to reach out to family members to discuss future goals of care and advance care planning, specifically resuscitation status. Patient's prognosis is extremely guarded, would also discuss benefits and burdens of continuing aggressive medical interventions. Will offer option for comfort care. Plan: Will attempt to reach nephews to discuss goals of care. If unable to reach nephew's and patient's condition continues to deteriorate to the point of futility, would recommend ethics consult.
[2016-05-29] MEDS: Albumin Human 25% (12.5 gm/50 ml) IV SCH ×3 (14:41→17:01)
[2016-05-29] MEDS: MULTIVITAMIN IV SCH (17:01)
[2016-05-29] MEDS: AMINO IV SCH (17:01)
[2016-05-29] MEDS: TRACE ELEMENTS IV SCH (17:01)
[2016-05-29] MEDS: [UNRECOGNIZED DRUG - OTHER] IV SCH (17:01)
[2016-05-29] MEDS: DEXT IV SCH (17:01)
--- NOTE | 2016-05-29 18:22 | CP.PCM.PN ---
Subjective - Date & Time of Evaluation Date of Evaluation: 05/29/16 Time of Evaluation: 17:00 - Subjective Subjective: Infectious Disease Follow Up: May 29, 2016 85 yo male with initial presentation for abdominal pain and abnormal CT scan sent from [facility] facility (I think [facility]). 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 Currently the patient appears comfortable. He is unable to give any relevant information due to a severe developmental delay. Patient is currently post-operative day #5 and has been displaying increasing leukocytosis since the surgery. Patient himself is awake and alert and does not appear to be making any major complaints. Nursing reports BM but also blood in BM. He was brought to MICU yesterday morning. He required intubation and ventilation. Signs of aspiration pneumonia. Will increase coverage to meropenem for now. Persistent leukocytosis. Patient in critical condition. Right IJ placed by MICU team. Case discussed with Dr. Pringle and Dr. Molina. The patient is on Meropenem and Flagyl for antibiotic coverage. Leukocytosis has worsened to 32.6 today. Patient remains in critical condition but seems more stable compared initial transfer to ICU. Patient did receive 6 U of PRBCs , 4 U of FFP, and 1 U of platelets during the first 24 hours in ICU. Surgery has asked for a C. diff study which is negative. Melena and blood clots from rectum have slowed down considerably. Patient has an extremely poor prognosis. Objective - Vital Signs/Intake and Output Vital Signs (last 24 hours): Temp Pulse Resp BP Pulse Ox 98.8 F 101 H 35 H 103/53 L 94 L 05/29/16 18:11 05/29/16 18:11 05/29/16 18:11 05/29/16 18:11 05/29/16 18:11 Intake and Output: 05/29/16 05/29/16 06:59 18:59 Intake Total 1032 2410 Output Total 1550 950 Balance -518 1460 - Medications Medications: Current Medications Acetaminophen (Tylenol 325mg Tab) 650 mg PO Q4H PRN PRN Reason: FEVER, PAIN Furosemide (Lasix) 40 mg IVP Q12 SHARIF Last Admin: 05/29/16 09:17 Dose: 40 mg Metronidazole (Flagyl) 100 mls @ 100 mls/hr IVPB Q8 SHARIF PRN Reason: Protocol Last Admin: 05/29/16 13:04 Dose: 100 mls/hr Pantoprazole Sodium (Protonix 40mg Ivpb) 100 mls @ 20 mls/hr IVPB .Q5H SHARIF Last Admin: 05/29/16 13:26 Dose: 20 mls/hr Midazolam 100 mg/100ml in NS (Midazolam 100 Mg/100ml In Ns) 100 mls @ 1 mls/hr IV .Q24H PRN; Protocol; 1 MG/HR PRN Reason: Pain, moderate (4-7) Last Admin: 05/29/16 10:01 Dose: 7 mls/hr Sodium Bicarbonate 75 meq/ (Dextrose/Sodium Chloride) 1,075 mls @ 100 mls/hr IV .[id number] SHARIF Last Admin: 05/27/16 04:47 Dose: 100 mls/hr Norepinephrine Bitartrate 4 mg (/ Dextrose) 254 mls @ 15.24 mls/hr IV .[id number] PRN; Protocol; 4 MCG/MIN PRN Reason: TITRATE PER MD ORDER Last Titration: 05/27/16 19:00 Dose: 0 mcg/min Amiodarone HCl/Dextrose (Nexterone 360 Mg In D5w 200 Ml (Premix)) 200 mls @ 33.333 mls/hr IV .Q6H SHARIF; 1 MG/MIN PRN Reason: Protocol Meropenem 1 gm/ Sodium (Chloride) 100 mls @ 100 mls/hr IVPB Q8 SHARIF PRN Reason: Protocol Stop: 06/01/16 23:59 Last Admin: 05/29/16 13:03 Dose: 100 mls/hr Fentanyl Citrate (Fentanyl Citrate/Sodium Chloride 1 Mg/100 Ml) 100 mls @ 7.5 mls/hr IV .[id number] PRN; Protocol; 75 MCG/HR PRN Reason: TITRATE PER MD ORDER Last Admin: 05/29/16 16:58 Dose: 10 mls/hr Cisatracurium Besylate 200 mg/ (Sodium Chloride) 200 mls @ 4.35 mls/hr IV .Q24H PRN; Protocol; 1 MCG/KG/MIN PRN Reason: TITRATE PER MD ORDER Last Admin: 05/28/16 18:27 Dose: 4.35 mls/hr Multivitamins/Vitamin C 10 ml/Chromium/Copper/Manganese/Zinc 1 ml/ Amino Acids 1,011 mls @ 42 mls/hr IV .Q24H SHARIF Stop: 05/31/16 17:59 Last Admin: 05/29/16 17:01 Dose: 42 mls/hr Vancomycin HCl (Vancomycin 1gm) 250 mls @ 167 mls/hr IVPB Q12H SHARIF PRN Reason: Protocol Last Admin: 05/29/16 17:02 Dose: 167 mls/hr Morphine Sulfate (Morphine) 2 mg IVP Q4H PRN PRN Reason: Pain, moderate (4-7) Last Admin: 05/26/16 03:48 Dose: 2 mg - Labs Labs: 05/29/16 05:15 05/29/16 05:15 PT 16.7 Seconds (9.9-11.8) H 05/27/16 17:35 INR 1.55 (0.93-1.08) H 05/27/16 17:35 APTT 28.1 Seconds (23.7-30.8) 05/27/16 17:35 - Constitutional Appears: Toxic, No Acute Distress, Chronically Ill - Head Exam Additional comments: intubated and ventilated. - Eye Exam Eye Exam: EOMI, PERRL Pupil Exam: NORMAL ACCOMODATION, PERRL - ENT Exam ENT Exam: Mucous Membranes Moist, Normal External Ear Exam, TM's Normal Bilaterally Additional comments: intubated and ventilated. - Respiratory Exam Respiratory Exam: Decreased Breath Sounds, Rhonchi. absent: Rales, Wheezes - Cardiovascular Exam Cardiovascular Exam: Tachycardia, +S1, +S2 - GI/Abdominal Exam GI & Abdominal Exam: Distended, Soft. absent: Tenderness Additional comments: mild distension - Extremities Exam Additional comments: thin and cachetic. edema +1-2 of the bilateral upper extremities. Scrotal swelling. mild edema of the lower extremities. - Neurological Exam Additional comments: Intubated, ventilated, and poorly responsive. - Psychiatric Exam Additional comments: Intubated, ventilated, and poorly responsive. Assessment and Plan - Assessment and Plan (Free Text) Assessment: 85 yo male with cecal mass and bilateral hernia had exploratory laparotomy with right hemicolectomy. The patient is unable to give any significant information when speaking with him. He is not complaining of pain. The patient leukocytosis continued to rise to 32.6 yesterday and is 28.3 now. There is a mild left shift to the leukocytosis. Supportive care. Silva cultures sent. Had Proteus in urine culture over a week ago but more recent urine culture is negative for growth. No growth in recent cultures so far. C. Diff studies negative. Currently on Meropenem and Flagyl for antibiotic coverage. Supportive care. CT Scan results noted with small bowel obstruction proximal to the right hernia sac containing dilated loops of small bowel. Findings consistent with incarceration and secondary proximal bowel obstruction. GI bleeding scan showing active bleed on both sides of the pelvis probably within the sigmoid colon. Surgery aware of findings. Remains in MICU and required intubation and ventilation. On antibiotics of Vancomycin, Meropenem, and Flagyl currently. Awaiting repeat cultures - negative to date. Await to see if any further surgical interventions. Possible aspiration pneumonia. Bleed at anastomotic site. Patient remains unstable. CT when patient stable enough to do so. Repeat Abdominal X-ray shows resolvement of SBO portion of disease. Patient remains critically ill and has an extremely poor prognosis. Thank you for allowing me to participate in the care of the patient, we will follow with you.
[2016-05-30] MEDS: Fentanyl 1000mcg/100ml NS 100 ML IV PRN ×2 (00:10→11:19)
[2016-05-30] MEDS: Midazolam 100 mg/100ml in NS 100 ML IV PRN (00:12)
[2016-05-30] MEDS: Pantoprazole 40mg/100ml IVPB 100 ML IVPB SCH ×4 (00:19→22:21)
[2016-05-30] MEDS: Vancomycin 1gm in NS 250ml 250 ML IVPB SCH ×2 (05:11→17:07)
[2016-05-30 05:13] LABS: ARTERIAL BLOOD GAS HCO3 31.8 mmol/L (21-28); ARTERIAL BLOOD GAS PH 7.42 (7.35-7.45)
[2016-05-30] MEDS: Meropenem 1 GM in Sodium Chloride 0.9% 100 ML IVPB SCH ×3 (06:02→21:00)
[2016-05-30 06:28] LABS: HEMATOCRIT 32.5 % (42.0-52.0); MEAN CELL VOLUME 92.6 fL (80.0-105.0); MEAN CORPUSCULAR HEMOGLOBIN 29.1 pg (25.0-35.0); MEAN CORPUSCULAR HGB CONC 31.4 g/dl (31.0-37.0); RED CELL DISTRIBUTION WIDTH 18.7 % (11.5-14.5)
[2016-05-30 06:46] LABS: ALB/GLOB RATIO 0.9 (1.1-1.8); ALKALINE PHOSPHATASE 78 U/L (38-133); ALT/SGPT 81 U/L (7-56); AST/SGOT 79 U/L (15-59); BILIRUBIN,TOTAL 0.9 mg/dL (0.2-1.3); BLOOD UREA NITROGEN 34 mg/dL (7-21); CALCIUM 7.5 mg/dL (8.4-10.5); CARBON DIOXIDE 35 mmol/L (21-33); CHLORIDE 109 mmol/L (98-107); GFR AFRICAN-AMERICAN > 60; GLUCOSE,RANDOM 95 mg/dL (70-110); POTASSIUM 3.1 mmol/L (3.6-5.0); SODIUM 149 mmol/L (132-148)
--- NOTE | 2016-05-30 06:57 | CP.PCM.PN ---
Subjective - Date & Time of Evaluation Date of Evaluation: 05/30/16 Time of Evaluation: 06:55 - Subjective Subjective: Surgery: Dr. Peterson Pt seen and examined. Remains intubated. Per nursing, no acute events overnight. Unable to do CT yesterday due to pt's condition. Objective - Vital Signs/Intake and Output Vital Signs (last 24 hours): Temp Pulse Resp BP Pulse Ox 100.1 F H 105 H 35 H 98/49 L 92 L 05/30/16 06:12 05/30/16 06:12 05/30/16 06:12 05/30/16 06:12 05/30/16 03:00 Intake and Output: 05/29/16 05/30/16 18:59 06:59 Intake Total 2410 1454 Output Total 950 1200 Balance 1460 254 - Medications Medications: Current Medications Acetaminophen (Tylenol 325mg Tab) 650 mg PO Q4H PRN PRN Reason: FEVER, PAIN Furosemide (Lasix) 40 mg IVP Q12 SHARIF Last Admin: 05/29/16 21:55 Dose: 40 mg Metronidazole (Flagyl) 100 mls @ 100 mls/hr IVPB Q8 SHARIF PRN Reason: Protocol Last Admin: 05/29/16 21:30 Dose: 100 mls/hr Pantoprazole Sodium (Protonix 40mg Ivpb) 100 mls @ 20 mls/hr IVPB .Q5H SHARIF Last Admin: 05/30/16 05:11 Dose: 20 mls/hr Midazolam 100 mg/100ml in NS (Midazolam 100 Mg/100ml In Ns) 100 mls @ 1 mls/hr IV .Q24H PRN; Protocol; 1 MG/HR PRN Reason: Pain, moderate (4-7) Last Admin: 05/30/16 00:12 Dose: 7 mls/hr Sodium Bicarbonate 75 meq/ (Dextrose/Sodium Chloride) 1,075 mls @ 100 mls/hr IV .[id number] SHARIF Last Admin: 05/27/16 04:47 Dose: 100 mls/hr Norepinephrine Bitartrate 4 mg (/ Dextrose) 254 mls @ 15.24 mls/hr IV .[id number] PRN; Protocol; 4 MCG/MIN PRN Reason: TITRATE PER MD ORDER Last Titration: 05/27/16 19:00 Dose: 0 mcg/min Amiodarone HCl/Dextrose (Nexterone 360 Mg In D5w 200 Ml (Premix)) 200 mls @ 33.333 mls/hr IV .Q6H SHARIF; 1 MG/MIN PRN Reason: Protocol Meropenem 1 gm/ Sodium (Chloride) 100 mls @ 100 mls/hr IVPB Q8 SHARIF PRN Reason: Protocol Stop: 06/01/16 23:59 Last Admin: 05/29/16 21:56 Dose: 100 mls/hr Fentanyl Citrate (Fentanyl Citrate/Sodium Chloride 1 Mg/100 Ml) 100 mls @ 7.5 mls/hr IV .[id number] PRN; Protocol; 75 MCG/HR PRN Reason: TITRATE PER MD ORDER Last Admin: 05/30/16 00:10 Dose: 10 mls/hr Cisatracurium Besylate 200 mg/ (Sodium Chloride) 200 mls @ 4.35 mls/hr IV .Q24H PRN; Protocol; 1 MCG/KG/MIN PRN Reason: TITRATE PER MD ORDER Last Admin: 05/30/16 04:17 Dose: 4.35 mls/hr Multivitamins/Vitamin C 10 ml/Chromium/Copper/Manganese/Zinc 1 ml/ Amino Acids 1,011 mls @ 42 mls/hr IV .Q24H SHARIF Stop: 05/31/16 17:59 Last Admin: 05/29/16 17:01 Dose: 42 mls/hr Vancomycin HCl (Vancomycin 1gm) 250 mls @ 167 mls/hr IVPB Q12H SHARIF PRN Reason: Protocol Last Admin: 05/30/16 05:11 Dose: 167 mls/hr - Labs Labs: 05/29/16 05:15 05/29/16 05:15 PT 16.7 Seconds (9.9-11.8) H 05/27/16 17:35 INR 1.55 (0.93-1.08) H 05/27/16 17:35 APTT 28.1 Seconds (23.7-30.8) 05/27/16 17:35 - Constitutional Appears: No Acute Distress, Chronically Ill - Head Exam Head Exam: ATRAUMATIC, NORMOCEPHALIC - ENT Exam ENT Exam: Normal External Ear Exam Additional comments: OGT in place - Respiratory Exam Additional comments: intubated - GI/Abdominal Exam GI & Abdominal Exam: Soft. absent: Distended, Firm, Guarding, Rigid, Tenderness Additional comments: incision C/D/I B/L inguinal hernia, large, reduceible - Neurological Exam Neurological Exam: absent: Alert, Awake Assessment and Plan - Assessment and Plan (Free Text) Assessment: 85M w. B/L inguinal hernias and cecal mass, s/p ex-lap w. R hemicolectomy, POD#8 , complicated by GI bleed which is resolving -GI bleed likely from anastomosis site -H/H stable, continue to monitor, transfuse PRN -minimal OGT output -repeat CT w. PO contrast when pt is stable enough to go to CT scan -c/w abx -will continue to follow closely -d/w attending Mily PGY2
[2016-05-30 06:59] LABS: WHITE BLOOD COUNT 25.9 10^3/ul (4.5-11.0)
[2016-05-30] MEDS: metroNIDAZOLE IV 500 mg/100 ml 100 ML IVPB SCH ×3 (06:59→21:00)
--- NOTE | 2016-05-30 08:10 | RAD ---
HISTORY: ARDS, hypoxemic respiratory failure. Technique: Single view portable semi erect @ 05:06. COMPARISON: No prior. FINDINGS: LUNGS: Stable multifocal infiltrates bilaterally. PLEURA: No significant pleural effusion identified, no pneumothorax apparent. CARDIOVASCULAR: No radiographic findings to suggest acute or significant cardiovascular disease. OSSEOUS STRUCTURES: No significant abnormalities. VISUALIZED UPPER ABDOMEN: Normal. OTHER FINDINGS: Stable, satisfactory position ventilatory, vascular and nasogastric apparatus. IMPRESSION: No significant interval change compared to the prior examination(s).
[2016-05-30] MEDS: Potassium Chloride 10 mEq 100 ML IVPB SCH ×2 (08:38→09:35)
[2016-05-30] MEDS ORDERED: Potassium Chloride 20 mEq 100 ML IVPB ONE (09:50)
[2016-05-30] MEDS ORDERED: Magnesium Sulfate 2 GM in Dextrose 5% In Water 100 ML IVPB ONE (09:50)
[2016-05-30] MEDS: MethylPREDNISolone 40 mg Vial IVP SCH ×2 (10:40→21:01)
--- NOTE | 2016-05-30 11:19 | CP.CCUPN ---
<Roger Britton - Last Filed: 05/30/16 12:33> CCU Subjective - Physician Review Events Since Last Encounter (Free Text): 05/30/16 12:33 Subjective (Free Text): Pt s&e w ICU attending. Pt is sedated. Neuromuscular blockade is stopped. Pt is intubated at fio2 40, 12, 35, 350. On PPN. Regular BM. 05/30/16 12:35 CCU Objective - Vital Signs / Intake & Output Vital Signs (Last 4 hours): Vital Signs Pulse Resp BP Pulse Ox 05/30/16 09:35 103/53 L 05/30/16 08:49 104 H 05/30/16 08:37 103 H 35 H 102/51 L 92 L Intake and Output (Last 8hrs): Intake & Output 05/29/16 05/30/16 05/30/16 22:59 06:59 14:59 Intake Total 2410 1454 Output Total 950 1200 Balance 1460 254 Weight 156 lb 6.4 oz Intake: IV 1454 Right Internal Jugular 1454 TPN/PPN 504 Albumin 400 Other 1506 Output: Urine 950 1200 2-way Urethral 950 1200 Emesis 0 Other: Voiding Method Indwelling Catheter Indwelling Catheter # Bowel Movements 0 - Physical Exam Head: Positive for: Atraumatic, Normocephalic. Negative for: Ecchymosis Conjunctiva: Positive for: Normal. Negative for: Injected, Icteric Mouth: Positive for: Moist Mucous Membranes Pharnyx: Negative for: ERYTHEMA Nose (Internal): Positive for: Normal Inspection, No Active Bleeding Respiratory/Chest: Positive for: Respiratory Distress, Other (Intubated. ). Negative for: Tachypneic Cardiovascular: Positive for: Regular Rate and Rhythm, Normal S1, S2 Abdomen: Positive for: Hernias. Negative for: Tenderness, Distention, Peritoneal Signs, Rebound, Guarding Genitourinary Male: Positive for: Testicle Tenderness, Masses, Erythema, Hernias , Testicle Swelling, Other (Large [id number] R inguinal hernia: irreducible. 10x5cm L inguinal hernia : irreducible. Erythematous). Negative for: Normal External Genitalia Upper Extremity: Positive for: Edema, Swelling. Negative for: Erythema Lower Extremity: Positive for: Edema, Swelling. Negative for: Cyanosis Skin: Positive for: Warm, Dry Psychiatric: Negative for: Alert, Oriented x 3, Normal Insight - Medications Active Medications: Active Medications Generic Name Dose Route Start Last Admin Trade Name Freq PRN Reason Stop Dose Admin Acetaminophen 650 mg 05/17/16 08:33 Tylenol 325mg Tab PO Q4H PRN FEVER, PAIN Albuterol/Ipratropium 3 ml 05/30/16 14:00 Duoneb 3 Mg/0.5 Mg (3 Ml) Ud IH [id number] SHARIF Furosemide 40 mg 05/28/16 10:00 05/30/16 09:35 Lasix IVP 40 mg Q12 SHARIF Administration Metronidazole 100 mls @ 100 mls/hr 05/24/16 08:15 05/30/16 06:59 Flagyl IVPB 100 mls/hr Q8 SHARIF Administration Protocol Pantoprazole Sodium 100 mls @ 20 mls/hr 05/26/16 10:30 05/30/16 05:11 Protonix 40mg Ivpb IVPB 20 mls/hr .Q5H SHARIF Administration Midazolam 100 mg/100ml in NS 100 mls @ 1 mls/hr 05/26/16 10:42 05/30/16 00:12 Midazolam 100 Mg/100ml In Ns IV 7 mls/hr .Q24H PRN Administration Pain, moderate (4-7) Protocol 1 MG/HR Sodium Bicarbonate 75 meq/ 1,075 mls @ 100 mls/hr 05/26/16 14:30 05/27/16 04:47 Dextrose/Sodium Chloride IV 100 mls/hr .[id number] SHARIF Administration Norepinephrine Bitartrate 4 mg 254 mls @ 15.24 mls/hr 05/26/16 15:52 05/27/16 19:00 / Dextrose IV 0 mcg/min .[id number] PRN Titration TITRATE PER MD ORDER Protocol 4 MCG/MIN Amiodarone HCl/Dextrose 200 mls @ 33.333 mls/hr 05/26/16 16:00 Nexterone 360 Mg In D5w 200 Ml (Premix) IV .Q6H SHARIF Protocol 1 MG/MIN Meropenem 1 gm/ Sodium 100 mls @ 100 mls/hr 05/26/16 17:00 05/30/16 06:02 Chloride IVPB 06/01/16 23:59 100 mls/hr Q8 SHARIF Administration Protocol Fentanyl Citrate 100 mls @ 7.5 mls/hr 05/27/16 09:07 05/30/16 00:10 Fentanyl Citrate/Sodium Chloride 1 Mg/100 Ml IV 10 mls/hr .[id number] PRN Administration TITRATE PER MD ORDER Protocol 75 MCG/HR Cisatracurium Besylate 200 mg/ 200 mls @ 4.35 mls/hr 05/27/16 12:21 05/30/16 04 :17 Sodium Chloride IV 4.35 mls/hr .Q24H PRN Administration TITRATE PER MD ORDER Protocol 1 MCG/KG/MIN Multivitamins/Vitamin C 10 ml/ 1,011 mls @ 42 mls/hr 05/28/16 18:00 05/29/16 17 :01 Chromium/Copper/Manganese/ IV 05/31/16 17:59 42 mls/hr Zinc 1 ml/ Amino Acids .Q24H SHARIF Administration Vancomycin HCl 250 mls @ 167 mls/hr 05/28/16 18:00 05/30/16 05:11 Vancomycin 1gm IVPB 167 mls/hr Q12H SHARIF Administration Protocol Potassium Chloride 100 mls @ 50 mls/hr 05/30/16 09:50 05/30/16 11:14 Potassium Chloride 20 Meq/100 Ml IVPB 05/30/16 11:49 50 mls/hr ONCE ONE Administration Magnesium Sulfate 2 gm/ 104 mls @ 50 mls/hr 05/30/16 09:50 05/30/16 10:41 Dextrose IVPB 05/30/16 11:54 50 mls/hr ONCE ONE Administration Methylprednisolone 40 mg 05/30/16 10:00 05/30/16 10:40 Solu-Medrol IVP 40 mg Q12 SHARIF Administration - Patient Studies Lab Studies: Microbiology Studies 05/24/16 09:10 Blood Culture - Final Blood-Venous NO GROWTH AFTER 5 DAYS Gram Stain - Final TEST NOT PERFORMED 05/24/16 09:00 Blood Culture - Final Blood-Venous NO GROWTH AFTER 5 DAYS Gram Stain - Final TEST NOT PERFORMED Lab Studies 05/30/16 05/30/16 05/29/16 Range/Units 06:02 04:50 18:11 WBC 25.9 H* (4.5-11.0) 10^3/ul RBC 3.51 (3.5-6.1) 10^6/uL Hgb 10.2 L (14.0-18.0) gm/dL Hct 32.5 L (42.0-52.0) % MCV 92.6 (80.0-105.0) fL MCH 29.1 (25.0-35.0) pg MCHC 31.4 (31.0-37.0) g/dl RDW 18.7 H (11.5-14.5) % Plt Count 178 (120.0-450.0) 10^3/uL MPV 11.0 (7.0-11.0) fl pCO2 49 H (35-45) mm/Hg pO2 63.0 L (80-100) mm/Hg HCO3 31.8 H (21-28) mmol/L ABG pH 7.42 (7.35-7.45) ABG Total CO2 33.3 H (22-28) mmol.L ABG O2 Saturation 94.5 L (95-98) % ABG Base Excess 6.1 H (-2.0-3.0) mmol/L ABG Potassium 2.8 L (3.6-5.2) mmol/L Glucose 88 (75-110) mg/dl Lactate 1.3 (0.7-2.1) mmol/L FiO2 40.0 % Sodium 149 H 147.0 (132-148) mmol/L Potassium 3.1 L (3.6-5.0) mmol/L Chloride 109 H 116.0 H (98-107) mmol/L Carbon Dioxide 35 H (21-33) mmol/L Anion Gap 8 L (10-20) BUN 34 H (7-21) mg/dL Creatinine 0.9 (0.5-1.4) mg/dL Est GFR ( Amer) > 60 Est GFR (Non-Af Amer) > 60 POC Glucose (mg/dL) 88 (65-110) mg/dL Random Glucose 95 (70-110) mg/dL Calcium 7.5 L (8.4-10.5) mg/dL Magnesium (1.7-2.2) mg/dL Total Bilirubin 0.9 (0.2-1.3) mg/dL AST 79 H (15-59) U/L ALT 81 H (7-56) U/L Alkaline Phosphatase 78 (38-133) U/L Total Protein 5.0 L (5.8-8.3) g/dL Albumin 2.4 L (3.0-4.8) g/dL Globulin 2.6 gm/dL Albumin/Globulin Ratio 0.9 L (1.1-1.8) Arterial Blood Potassium 2.8 L (3.6-5.2) mmol/L Crossmatch 05/29/16 05/29/16 05/29/16 Range/Units 13:44 12:57 08:59 WBC (4.5-11.0) 10^3/ul RBC (3.5-6.1) 10^6/uL Hgb (14.0-18.0) gm/dL Hct (42.0-52.0) % MCV (80.0-105.0) fL MCH (25.0-35.0) pg MCHC (31.0-37.0) g/dl RDW (11.5-14.5) % Plt Count (120.0-450.0) 10^3/uL MPV (7.0-11.0) fl pCO2 (35-45) mm/Hg pO2 (80-100) mm/Hg HCO3 (21-28) mmol/L ABG pH (7.35-7.45) ABG Total CO2 (22-28) mmol.L ABG O2 Saturation (95-98) % ABG Base Excess (-2.0-3.0) mmol/L ABG Potassium (3.6-5.2) mmol/L Glucose (75-110) mg/dl Lactate (0.7-2.1) mmol/L FiO2 % Sodium (132-148) mmol/L Potassium (3.6-5.0) mmol/L Chloride (98-107) mmol/L Carbon Dioxide (21-33) mmol/L Anion Gap (10-20) BUN (7-21) mg/dL Creatinine (0.5-1.4) mg/dL Est GFR ( Amer) Est GFR (Non-Af Amer) POC Glucose (mg/dL) 89 98 (65-110) mg/dL Random Glucose (70-110) mg/dL Calcium (8.4-10.5) mg/dL Magnesium 2.1 (1.7-2.2) mg/dL Total Bilirubin (0.2-1.3) mg/dL AST (15-59) U/L ALT (7-56) U/L Alkaline Phosphatase (38-133) U/L Total Protein (5.8-8.3) g/dL Albumin (3.0-4.8) g/dL Globulin gm/dL Albumin/Globulin Ratio (1.1-1.8) Arterial Blood Potassium (3.6-5.2) mmol/L Crossmatch 05/26/16 Range/Units 11:30 WBC (4.5-11.0) 10^3/ul RBC (3.5-6.1) 10^6/uL Hgb (14.0-18.0) gm/dL Hct (42.0-52.0) % MCV (80.0-105.0) fL MCH (25.0-35.0) pg MCHC (31.0-37.0) g/dl RDW (11.5-14.5) % Plt Count (120.0-450.0) 10^3/uL MPV (7.0-11.0) fl pCO2 (35-45) mm/Hg pO2 (80-100) mm/Hg HCO3 (21-28) mmol/L ABG pH (7.35-7.45) ABG Total CO2 (22-28) mmol.L ABG O2 Saturation (95-98) % ABG Base Excess (-2.0-3.0) mmol/L ABG Potassium (3.6-5.2) mmol/L Glucose (75-110) mg/dl Lactate (0.7-2.1) mmol/L FiO2 % Sodium (132-148) mmol/L Potassium (3.6-5.0) mmol/L Chloride (98-107) mmol/L Carbon Dioxide (21-33) mmol/L Anion Gap (10-20) BUN (7-21) mg/dL Creatinine (0.5-1.4) mg/dL Est GFR ( Amer) Est GFR (Non-Af Amer) POC Glucose (mg/dL) (65-110) mg/dL Random Glucose (70-110) mg/dL Calcium (8.4-10.5) mg/dL Magnesium (1.7-2.2) mg/dL Total Bilirubin (0.2-1.3) mg/dL AST (15-59) U/L ALT (7-56) U/L Alkaline Phosphatase (38-133) U/L Total Protein (5.8-8.3) g/dL Albumin (3.0-4.8) g/dL Globulin gm/dL Albumin/Globulin Ratio (1.1-1.8) Arterial Blood Potassium (3.6-5.2) mmol/L Crossmatch See Detail Laboratory Results - last 24 hr 05/26/16 05/29/16 05/29/16 11:30 08:59 12:57 WBC RBC Hgb Hct MCV MCH MCHC RDW Plt Count MPV pCO2 pO2 HCO3 ABG pH ABG Total CO2 ABG O2 Saturation ABG Base Excess ABG Potassium Sodium Chloride Glucose Lactate FiO2 Potassium Carbon Dioxide Anion Gap BUN Creatinine Est GFR ( Amer) Est GFR (Non-Af Amer) POC Glucose (mg/dL) 98 89 Random Glucose Calcium Magnesium Total Bilirubin AST ALT Alkaline Phosphatase Total Protein Albumin Globulin Albumin/Globulin Ratio Arterial Blood Potassium Crossmatch See Detail 05/29/16 05/29/16 05/30/16 13:44 18:11 04:50 WBC RBC Hgb Hct MCV MCH MCHC RDW Plt Count MPV pCO2 49 H pO2 63.0 L HCO3 31.8 H ABG pH 7.42 ABG Total CO2 33.3 H ABG O2 Saturation 94.5 L ABG Base Excess 6.1 H ABG Potassium 2.8 L Sodium 147.0 Chloride 116.0 H Glucose 88 Lactate 1.3 FiO2 40.0 Potassium Carbon Dioxide Anion Gap BUN Creatinine Est GFR ( Amer) Est GFR (Non-Af Amer) POC Glucose (mg/dL) 88 Random Glucose Calcium Magnesium 2.1 Total Bilirubin AST ALT Alkaline Phosphatase Total Protein Albumin Globulin Albumin/Globulin Ratio Arterial Blood Potassium 2.8 L Crossmatch 05/30/16 06:02 WBC 25.9 H* RBC 3.51 Hgb 10.2 L Hct 32.5 L MCV 92.6 MCH 29.1 MCHC 31.4 RDW 18.7 H Plt Count 178 MPV 11.0 pCO2 pO2 HCO3 ABG pH ABG Total CO2 ABG O2 Saturation ABG Base Excess ABG Potassium Sodium 149 H Chloride 109 H Glucose Lactate FiO2 Potassium 3.1 L Carbon Dioxide 35 H Anion Gap 8 L BUN 34 H Creatinine 0.9 Est GFR ( Amer) > 60 Est GFR (Non-Af Amer) > 60 POC Glucose (mg/dL) Random Glucose 95 Calcium 7.5 L Magnesium Total Bilirubin 0.9 AST 79 H ALT 81 H Alkaline Phosphatase 78 Total Protein 5.0 L Albumin 2.4 L Globulin 2.6 Albumin/Globulin Ratio 0.9 L Arterial Blood Potassium Crossmatch Fingerstick Blood Sugar Results: 999 Review of Systems - Review of Systems Systems not reviewed;Unavailable: Intubated Critical Care Progress Note - Ventilator Checklist Head of Bed 30 Degrees: Yes Daily Sedation Vacation: Yes - Nutrition Nutrition: Nutrition Category Date Time Status NPO Diet [DIET] Diets 05/26/16 Breakfast Ordered Assessment/Plan - Assessment and Plan (Free Text) Assessment: The patient is a 66 year old man with a history of developmental delay, iron deficiency anemia, and degenerative arthritis who was admitted to [facility] on with bilateral, non-reducible inguinal hernias and a CT-scan showing a large cecal mass, concerning for malignancy. As a result, he underwent an exploratory laparotomy and right hemicolectomy (with pathology of cecal mass still pending) . Because of the hemicolectomy, and the large size of the patients bilateral inguinal hernias could not be repaired during the procedure. Post-operatively, the patient developed marked leukocytosis (presumed to be secondary to post-op reactive atelectasis) which is being treated with IV Merrem, vanco and Flagyl by ID consult. The CT scan shows an incarcerated right hernia sac with secondary small bowel obstruction, which general surgery manually reduced but reccuring. The bleeding scan shows active bleeding most likely from the sigmoid colon. Bleeding resolving. Pt intubated. Hypoxic respiratory failure ventilator dependent 2/2 aspiration pneumonia and ARDS Hemorrhagic shock 2/2 GI bleed: resolving Neuro: Mental Retardation Maintain normothermia -Vversed drip CV: Hemodynamically stable: Off pressors Maintain MAP >65 DC Lasix Pulm: CXR : b/l infiltration Maintain Sp02>90 Vent setting at 40% fio2/12/35/350 ABX Lasix DCed Possible trach Duoneb Steroid GI: S/P R nimo for SBO and tumor Bloody BM: resolved NPO Protonix drip Hold PO meds Hold hepatin sub Q, colace GI on board CT w PO contrast when Pt stable Poss Tube feed after CT NGT Heme: 6 PRBC given CBC 10 today Transfuse if Hgb <8 Renal/: Urine output 2L /24hrs. Cr 0.9 Hernia recurrent bilaterally Continue to monitor electrolytes will replace/replete as needed Lasix held ID: Urine cx 05/16 : Proteus sensitive for cefetpime and Cipro Leukocystosis 26 today. Trending down Silva- cultures pending Vanc/Merrem/Flagyl ID on board Endo: Maintain euglycemia GI ppx: PTX DVT ppx: SCDs Disposition: Guarded. Contact family for possible DNR/DNI Case seen, reviewed and discussed with attending <Albert Mojica - Last Filed: 05/30/16 12:57> CCU Objective - Vital Signs / Intake & Output Vital Signs (Last 4 hours): Vital Signs Pulse Resp BP Pulse Ox 05/30/16 11:35 107 H 28 H 96/47 L 93 L 05/30/16 10:20 108 H 21 92 L 05/30/16 10:00 110 H 22 92 L 05/30/16 09:40 107 H 23 92 L 05/30/16 09:35 103/53 L 05/30/16 09:20 106 H 35 H 91 L 05/30/16 09:00 108 H 35 H 91 L Intake and Output (Last 8hrs): Intake & Output 05/29/16 05/30/16 05/30/16 22:59 06:59 14:59 Intake Total 2410 1454 Output Total 950 1200 Balance 1460 254 Weight 156 lb 6.4 oz Intake: IV 1454 Right Internal Jugular 1454 TPN/PPN 504 Albumin 400 Other 1506 Output: Urine 950 1200 2-way Urethral 950 1200 Emesis 0 Other: Voiding Method Indwelling Catheter Indwelling Catheter # Bowel Movements 0 - Medications Active Medications: Active Medications Generic Name Dose Route Start Last Admin Trade Name Freq PRN Reason Stop Dose Admin Acetaminophen 650 mg 05/17/16 08:33 Tylenol 325mg Tab PO Q4H PRN FEVER, PAIN Albuterol/Ipratropium 3 ml 05/30/16 14:00 Duoneb 3 Mg/0.5 Mg (3 Ml) Ud IH [id number] SHARIF Furosemide 40 mg 05/28/16 10:00 05/30/16 09:35 Lasix IVP 40 mg Q12 SHARIF Administration Metronidazole 100 mls @ 100 mls/hr 05/24/16 08:15 05/30/16 06:59 Flagyl IVPB 100 mls/hr Q8 SHARIF Administration Protocol Pantoprazole Sodium 100 mls @ 20 mls/hr 05/26/16 10:30 05/30/16 05:11 Protonix 40mg Ivpb IVPB 20 mls/hr .Q5H SHARIF Administration Midazolam 100 mg/100ml in NS 100 mls @ 1 mls/hr 05/26/16 10:42 05/30/16 00:12 Midazolam 100 Mg/100ml In Ns IV 7 mls/hr .Q24H PRN Administration Pain, moderate (4-7) Protocol 1 MG/HR Sodium Bicarbonate 75 meq/ 1,075 mls @ 100 mls/hr 05/26/16 14:30 05/27/16 04:47 Dextrose/Sodium Chloride IV 100 mls/hr .[id number] SHARIF Administration Norepinephrine Bitartrate 4 mg 254 mls @ 15.24 mls/hr 05/26/16 15:52 05/27/16 19:00 / Dextrose IV 0 mcg/min .[id number] PRN Titration TITRATE PER MD ORDER Protocol 4 MCG/MIN Amiodarone HCl/Dextrose 200 mls @ 33.333 mls/hr 05/26/16 16:00 Nexterone 360 Mg In D5w 200 Ml (Premix) IV .Q6H SHARIF Protocol 1 MG/MIN Meropenem 1 gm/ Sodium 100 mls @ 100 mls/hr 05/26/16 17:00 05/30/16 06:02 Chloride IVPB 06/01/16 23:59 100 mls/hr Q8 SHARIF Administration Protocol Fentanyl Citrate 100 mls @ 7.5 mls/hr 05/27/16 09:07 05/30/16 11:19 Fentanyl Citrate/Sodium Chloride 1 Mg/100 Ml IV 9 mls/hr .[id number] PRN Administration TITRATE PER MD ORDER Protocol 75 MCG/HR Cisatracurium Besylate 200 mg/ 200 mls @ 4.35 mls/hr 05/27/16 12:21 05/30/16 04 :17 Sodium Chloride IV 4.35 mls/hr .Q24H PRN Administration TITRATE PER MD ORDER Protocol 1 MCG/KG/MIN Multivitamins/Vitamin C 10 ml/ 1,011 mls @ 42 mls/hr 05/28/16 18:00 05/29/16 17 :01 Chromium/Copper/Manganese/ IV 05/31/16 17:59 42 mls/hr Zinc 1 ml/ Amino Acids .Q24H SHARIF Administration Vancomycin HCl 250 mls @ 167 mls/hr 05/28/16 18:00 05/30/16 05:11 Vancomycin 1gm IVPB 167 mls/hr Q12H SHARIF Administration Protocol Methylprednisolone 40 mg 05/30/16 10:00 05/30/16 10:40 Solu-Medrol IVP 40 mg Q12 SHARIF Administration - Patient Studies Lab Studies: Microbiology Studies 05/24/16 09:10 Blood Culture - Final Blood-Venous NO GROWTH AFTER 5 DAYS Gram Stain - Final TEST NOT PERFORMED 05/24/16 09:00 Blood Culture - Final Blood-Venous NO GROWTH AFTER 5 DAYS Gram Stain - Final TEST NOT PERFORMED Lab Studies 05/30/16 05/30/16 05/29/16 Range/Units 06:02 04:50 18:11 WBC 25.9 H* (4.5-11.0) 10^3/ul RBC 3.51 (3.5-6.1) 10^6/uL Hgb 10.2 L (14.0-18.0) gm/dL Hct 32.5 L (42.0-52.0) % MCV 92.6 (80.0-105.0) fL MCH 29.1 (25.0-35.0) pg MCHC 31.4 (31.0-37.0) g/dl RDW 18.7 H (11.5-14.5) % Plt Count 178 (120.0-450.0) 10^3/uL MPV 11.0 (7.0-11.0) fl pCO2 49 H (35-45) mm/Hg pO2 63.0 L (80-100) mm/Hg HCO3 31.8 H (21-28) mmol/L ABG pH 7.42 (7.35-7.45) ABG Total CO2 33.3 H (22-28) mmol.L ABG O2 Saturation 94.5 L (95-98) % ABG Base Excess 6.1 H (-2.0-3.0) mmol/L ABG Potassium 2.8 L (3.6-5.2) mmol/L Glucose 88 (75-110) mg/dl Lactate 1.3 (0.7-2.1) mmol/L FiO2 40.0 % Sodium 149 H 147.0 (132-148) mmol/L Potassium 3.1 L (3.6-5.0) mmol/L Chloride 109 H 116.0 H (98-107) mmol/L Carbon Dioxide 35 H (21-33) mmol/L Anion Gap 8 L (10-20) BUN 34 H (7-21) mg/dL Creatinine 0.9 (0.5-1.4) mg/dL Est GFR ( Amer) > 60 Est GFR (Non-Af Amer) > 60 POC Glucose (mg/dL) 88 (65-110) mg/dL Random Glucose 95 (70-110) mg/dL Calcium 7.5 L (8.4-10.5) mg/dL Magnesium (1.7-2.2) mg/dL Total Bilirubin 0.9 (0.2-1.3) mg/dL AST 79 H (15-59) U/L ALT 81 H (7-56) U/L Alkaline Phosphatase 78 (38-133) U/L Total Protein 5.0 L (5.8-8.3) g/dL Albumin 2.4 L (3.0-4.8) g/dL Globulin 2.6 gm/dL Albumin/Globulin Ratio 0.9 L (1.1-1.8) Arterial Blood Potassium 2.8 L (3.6-5.2) mmol/L Crossmatch 05/29/16 05/29/16 05/29/16 Range/Units 13:44 12:57 08:59 WBC (4.5-11.0) 10^3/ul RBC (3.5-6.1) 10^6/uL Hgb (14.0-18.0) gm/dL Hct (42.0-52.0) % MCV (80.0-105.0) fL MCH (25.0-35.0) pg MCHC (31.0-37.0) g/dl RDW (11.5-14.5) % Plt Count (120.0-450.0) 10^3/uL MPV (7.0-11.0) fl pCO2 (35-45) mm/Hg pO2 (80-100) mm/Hg HCO3 (21-28) mmol/L ABG pH (7.35-7.45) ABG Total CO2 (22-28) mmol.L ABG O2 Saturation (95-98) % ABG Base Excess (-2.0-3.0) mmol/L ABG Potassium (3.6-5.2) mmol/L Glucose (75-110) mg/dl Lactate (0.7-2.1) mmol/L FiO2 % Sodium (132-148) mmol/L Potassium (3.6-5.0) mmol/L Chloride (98-107) mmol/L Carbon Dioxide (21-33) mmol/L Anion Gap (10-20) BUN (7-21) mg/dL Creatinine (0.5-1.4) mg/dL Est GFR ( Amer) Est GFR (Non-Af Amer) POC Glucose (mg/dL) 89 98 (65-110) mg/dL Random Glucose (70-110) mg/dL Calcium (8.4-10.5) mg/dL Magnesium 2.1 (1.7-2.2) mg/dL Total Bilirubin (0.2-1.3) mg/dL AST (15-59) U/L ALT (7-56) U/L Alkaline Phosphatase (38-133) U/L Total Protein (5.8-8.3) g/dL Albumin (3.0-4.8) g/dL Globulin gm/dL Albumin/Globulin Ratio (1.1-1.8) Arterial Blood Potassium (3.6-5.2) mmol/L Crossmatch 05/26/16 Range/Units 11:30 WBC (4.5-11.0) 10^3/ul RBC (3.5-6.1) 10^6/uL Hgb (14.0-18.0) gm/dL Hct (42.0-52.0) % MCV (80.0-105.0) fL MCH (25.0-35.0) pg MCHC (31.0-37.0) g/dl RDW (11.5-14.5) % Plt Count (120.0-450.0) 10^3/uL MPV (7.0-11.0) fl pCO2 (35-45) mm/Hg pO2 (80-100) mm/Hg HCO3 (21-28) mmol/L ABG pH (7.35-7.45) ABG Total CO2 (22-28) mmol.L ABG O2 Saturation (95-98) % ABG Base Excess (-2.0-3.0) mmol/L ABG Potassium (3.6-5.2) mmol/L Glucose (75-110) mg/dl Lactate (0.7-2.1) mmol/L FiO2 % Sodium (132-148) mmol/L Potassium (3.6-5.0) mmol/L Chloride (98-107) mmol/L Carbon Dioxide (21-33) mmol/L Anion Gap (10-20) BUN (7-21) mg/dL Creatinine (0.5-1.4) mg/dL Est GFR ( Amer) Est GFR (Non-Af Amer) POC Glucose (mg/dL) (65-110) mg/dL Random Glucose (70-110) mg/dL Calcium (8.4-10.5) mg/dL Magnesium (1.7-2.2) mg/dL Total Bilirubin (0.2-1.3) mg/dL AST (15-59) U/L ALT (7-56) U/L Alkaline Phosphatase (38-133) U/L Total Protein (5.8-8.3) g/dL Albumin (3.0-4.8) g/dL Globulin gm/dL Albumin/Globulin Ratio (1.1-1.8) Arterial Blood Potassium (3.6-5.2) mmol/L Crossmatch See Detail Laboratory Results - last 24 hr 05/26/16 05/29/16 05/29/16 11:30 08:59 12:57 WBC RBC Hgb Hct MCV MCH MCHC RDW Plt Count MPV pCO2 pO2 HCO3 ABG pH ABG Total CO2 ABG O2 Saturation ABG Base Excess ABG Potassium Sodium Chloride Glucose Lactate FiO2 Potassium Carbon Dioxide Anion Gap BUN Creatinine Est GFR ( Amer) Est GFR (Non-Af Amer) POC Glucose (mg/dL) 98 89 Random Glucose Calcium Magnesium Total Bilirubin AST ALT Alkaline Phosphatase Total Protein Albumin Globulin Albumin/Globulin Ratio Arterial Blood Potassium Crossmatch See Detail 05/29/16 05/29/16 05/30/16 13:44 18:11 04:50 WBC RBC Hgb Hct MCV MCH MCHC RDW Plt Count MPV pCO2 49 H pO2 63.0 L HCO3 31.8 H ABG pH 7.42 ABG Total CO2 33.3 H ABG O2 Saturation 94.5 L ABG Base Excess 6.1 H ABG Potassium 2.8 L Sodium 147.0 Chloride 116.0 H Glucose 88 Lactate 1.3 FiO2 40.0 Potassium Carbon Dioxide Anion Gap BUN Creatinine Est GFR ( Amer) Est GFR (Non-Af Amer) POC Glucose (mg/dL) 88 Random Glucose Calcium Magnesium 2.1 Total Bilirubin AST ALT Alkaline Phosphatase Total Protein Albumin Globulin Albumin/Globulin Ratio Arterial Blood Potassium 2.8 L Crossmatch 05/30/16 06:02 WBC 25.9 H* RBC 3.51 Hgb 10.2 L Hct 32.5 L MCV 92.6 MCH 29.1 MCHC 31.4 RDW 18.7 H Plt Count 178 MPV 11.0 pCO2 pO2 HCO3 ABG pH ABG Total CO2 ABG O2 Saturation ABG Base Excess ABG Potassium Sodium 149 H Chloride 109 H Glucose Lactate FiO2 Potassium 3.1 L Carbon Dioxide 35 H Anion Gap 8 L BUN 34 H Creatinine 0.9 Est GFR ( Amer) > 60 Est GFR (Non-Af Amer) > 60 POC Glucose (mg/dL) Random Glucose 95 Calcium 7.5 L Magnesium Total Bilirubin 0.9 AST 79 H ALT 81 H Alkaline Phosphatase 78 Total Protein 5.0 L Albumin 2.4 L Globulin 2.6 Albumin/Globulin Ratio 0.9 L Arterial Blood Potassium Crossmatch Critical Care Progress Note - Nutrition Nutrition: Nutrition Category Date Time Status NPO Diet [DIET] Diets 05/26/16 Breakfast Ordered Attending/Attestation - Attestation I have personally seen and examined this patient.: Yes I have fully participated in the care of the patient.: Yes I have reviewed all pertinent clinical information: Yes Notes (Text): 05/30/16 12:54 The patient was seen and examined at the bedside. Patient care was discussed with resident Medical records, lab studies, and imaging were reviewed and management issues were discussed and formulated. Last 24H events reviewed. Agree with above treatment plans as outlined in 's note with addition of the following: -hemodynamic monitoring to maintain MAP>65 -mechanical ventilation and o2 supplementation to maintain Spo2 >90 Pao2>60 -monitor for TV 6ml\kg IBW and plateau pressure <30 -ABG in AM reviewed -continue fio2 40% and PEEP 12 -continue nebs and start solumedrol -f\u repeat CXR -continue broad spectrum Abx as per ID team ; f\u cultures -f\u Bun\Cr and U\o; contraction alkalosis noted; will hold lasix at this time -monitor and replace e-lites -d\c Nimbex after 48hrs and continue sedation -NPO and aspiration precautions -surgical team following -CT A\P when more stable -DVT \ PUD prophylaxis CCM f\u 38min
--- NOTE | 2016-05-30 11:21 | PN ---
DATE: 05/30/2016 The patient is seen on the floor in the ICU. He is intubated with paralytics and sedation. His abdo men is soft, somewhat distended. Having bowel movements and they are no longer bloody. NG tube is d raining bilious material without obvious blood. White count is down to 25.9 with a shift. SMA-18 is basically a low potassium, BUN is 35. AST and A LT both in the 80s. I would like to get a CAT scan just to look, but I am less and less concerned; he is having bowel mov ements as we speak. Theoretically, we could convert the NG tube to feeding. Now he is pretty much h as been stable for the last couple of days. Will try to wean and start him on a diet, but we need a CAT scan. Will also try to get in touch with the family. Alberto Peterson MD cc: [id number] TT: 05/30/2016 11:20:51 Confirmation # [id number] Dictation # [id number] mn
[2016-05-30] MEDS: Albuterol-Ipratrop 3 mg / 0.5 (3 ml) UD IH SCH ×2 (13:25→19:50)
--- NOTE | 2016-05-30 13:42 | PN ---
DATE: 05/29/2016 This is an addendum to the GI progress report dictated by Henrietta Hurst NP. The patient was seen and evaluated at 10:00 a.m. on 05/29/2016. Discussed with the nursing staff. Di scussed with also Dr. Molina, examiner rating clerk. The plan is to schedule for CAT scan when optimized. C ontinue the antibiotics. NG tube still remains, drained 20 mL coffee ground. We will continue to cl osely follow up his care and suggest further recommendations based on the clinical course. Ann Luna MD cc: [id number] TT: 05/30/2016 13:41:37 Confirmation # [id number] Dictation # [id number] tn
[2016-05-30 14:59] LABS: BASO # 0.05 K/mm3 (0.0-2.0); BASO % 0.2 % (0.0-3.0); EOS % 0.1 % (1.5-5.0); GRAN % 93.2 % (50.0-68.0); HEMATOCRIT 35.9 % (42.0-52.0); LYMPH # 0.9 (1.2-3.4); LYMPH % 2.8 % (22.0-35.0); MEAN CELL VOLUME 92.5 fL (80.0-105.0); MEAN CORPUSCULAR HEMOGLOBIN 28.6 pg (25.0-35.0); MEAN CORPUSCULAR HGB CONC 30.9 g/dl (31.0-37.0); MEAN PLATELET VOLUME 10.6 fl (7.0-11.0); MONO # 1.2 (0.1-0.6); MONO % 3.7 % (1.0-6.0); PLATELET COUNT 180 10^3/uL (120.0-450.0); RED CELL DISTRIBUTION WIDTH 18.9 % (11.5-14.5)
[2016-05-30 15:01] LABS: WHITE BLOOD COUNT 31.5 10^3/ul (4.5-11.0)
[2016-05-30 15:02] LABS: ADD MANUAL DIFF? NO
[2016-05-30 15:05] LABS: ALB/GLOB RATIO 0.9 (1.1-1.8); ALKALINE PHOSPHATASE 81 U/L (38-133); ALT/SGPT 72 U/L (7-56); AST/SGOT 70 U/L (15-59); BILIRUBIN,TOTAL 0.8 mg/dL (0.2-1.3); BLOOD UREA NITROGEN 34 mg/dL (7-21); CALCIUM 7.5 mg/dL (8.4-10.5); CARBON DIOXIDE 34 mmol/L (21-33); CHLORIDE 109 mmol/L (98-107); GFR AFRICAN-AMERICAN > 60; GLUCOSE,RANDOM 109 mg/dL (70-110); MAGNESIUM 2.6 mg/dL (1.7-2.2); PHOSPHOROUS 1.5 mg/dL (2.5-4.5); POTASSIUM 3.6 mmol/L (3.6-5.0); SODIUM 147 mmol/L (132-148); TOTAL PROTEIN 5.1 g/dL (5.8-8.3)
[2016-05-30] MEDS ORDERED: Morphine 2 mg/ml ISec IVP PRN (17:00)
[2016-05-30] MEDS ORDERED: Potassium Phosphate 3 mmol/ml Inj IV STA (17:02)
[2016-05-30] MEDS ORDERED: Potassium Phosphate 15 MMOLE in Sodium Chloride 0.9% 250 ML IVPB ONE ×3 (17:07→17:15)
[2016-05-30] MEDS: AMINO IV SCH (17:08)
[2016-05-30] MEDS: MULTIVITAMIN IV SCH (17:08)
[2016-05-30] MEDS: TRACE ELEMENTS IV SCH (17:08)
[2016-05-30] MEDS: [UNRECOGNIZED DRUG - OTHER] IV SCH (17:08)
[2016-05-30] MEDS: DEXT IV SCH (17:08)
--- NOTE | 2016-05-30 20:47 | PN ---
DATE: 05/30/2016 This 85-year-old male remains hospitalized in ICU, bed 1. His case was reviewed at the bedside with his nurse, Yesika. The patient had all of his neuromuscular blockade discontinued earlier this afternoon and he remains unresponsive and sedated. He was seen earlier today by Dr. Alberto Peterson from surgery, who has no plans for any further surgery at this time and the patient is scheduled for a CAT scan of the abdomen to rule out abscess or focus of infection when he is more clinically stable. He remains intubated and has multiple comorbidities including hemorrhagic shock, status post right hemicolectomy for cecal mass that was complicated by marked GI bleeding, felt to be secondary to bleeding at the anastomotic site of his hemicolectomy as well as stress gastritis. The patient subsequently aspirated, has aspiration pneumonia and ARDS and is in respiratory failure, requiring ventilatory support , and is currently receiving 40% FIO2 with 12 of PEEP. 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 The patient is still with bilateral inguinal hernias that have been reduced by Dr. Peterson, on repeated occasions. There is no evidence of small-bowel obstruction on recent abdominal x-rays and he is also being treated for presumed sepsis with vancomycin, meropenem, and Flagyl; by Dr. Fuentes Victoria, from infectious disease. PHYSICAL EXAMINATION: VITAL SIGNS: Temperature 100, respirations 26, pulse 109, blood pressure 96/46 with a pulse ox of 92%. HEAD: Normocephalic, atraumatic. EYES: No icterus. NECK: Supple. HEART: S1, S2. No pathological rubs, murmurs, or gallops. LUNGS: With rhonchi bilaterally. ABDOMEN: Soft. He has a vertical incisional scar with fabiana holding the wound in place with no purulent discharge. Scrotum shows bilateral inguinal hernias. He has a Gleason draining clear yellow urine. EXTREMITIES: Show no clubbing, cyanosis, or edema. He is wearing anti- embolism stockings and SCD compression device stockings. His legs are elevated on pillows to prevent pressure ulcers. SKIN: Without rash. NEUROLOGIC: Sedated. PSYCHOLOGICAL: Sedated. LABORATORY DATA: White count 31,500, hemoglobin 11.1, hematocrit 35.9, platelets 180,000. Latest PT/INR 1.55 with a PTT of 28.1, sodium 147, K 3.6, chloride 109, bicarbonate 34, BUN 34, creatinine 0.8, random blood sugar was 109 , magnesium 2.6, AST is down to 70, ALT is down to 72, bilirubin 0.8, alkaline phosphatase 81. Albumin is low at 2.4, emesis was positive for blood. Chest x-ray shows no change in the persistent bilateral infiltrates and that all tubes including endotracheal and nasogastric are in place. IMPRESSION: An 85-year-old male status post right hemicolectomy for cecal mass , pathology still pending, with comorbidities of postoperative hemorrhagic shock , presumed bleeding at the anastomotic site of the right hemicolectomy as well as stress gastritis, and aspiration pneumonia, acute respiratory distress syndrome, respiratory failure requiring ventilatory support, chronic mental retardation, sepsis, electrolyte imbalances being corrected including hypomagnesemia, hypokalemia. PLAN: The patient remains on ventilatory support, being weaned as able. He remains n.p.o. and is receiving parenteral alimentation as tolerated. He remains on fall precautions, aspiration precautions, and is wearing anti- embolism stockings and having skin monitored for breakdown. He is having bedside range of motion of his limbs. He will continue on IV vancomycin, IV Protonix drip, IV potassium phosphate replacement, IV meropenem, IV Lasix, DuoNeb nebulizer, and IV albumin. He is scheduled to have CBC and comprehensive metabolic panel in the a.m. Stool for C. diff toxin, dated 05/28 shows negative antigen, negative toxin. There was no MRSA detected from his nares. Urine culture shows no growth. The latest blood cultures show no growth after 5 days. The patient will be treated supportively. All attempts that I have made, Dr. Peterson has made, Intensive Care has made, and staff members, including social service director, Felicia Pizano, Equip Tech, Roberta Fuentes , as well as Equip Tech, Ignacia Bob; have been unsuccessful at reaching any family members regarding this patient's hospital course or discussions for DNR. The patient will be treated in a conservative compassionate way. Overall prognosis remains poor. Approximately 60 minutes was spent in the critical care of this patient and discussion of his care with nursing, co-consultants, pillowcase cutter, and his prognosis is indeed guarded. Codi Pringle MD cc: [id number] TT: 05/30/2016 20:46:38 Confirmation # [id number] Dictation # [id number] ln MTDD
--- NOTE | 2016-05-31 01:24 | CP.PCM.PN ---
Subjective - Date & Time of Evaluation Date of Evaluation: 05/30/16 Time of Evaluation: 18:45 - Subjective Subjective: Infectious Disease Follow Up: May 30, 2016 85 yo male with initial presentation for abdominal pain and abnormal CT scan sent from [facility] facility (I think [facility] [place]). 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 Currently the patient appears comfortable. He is unable to give any relevant information due to a severe developmental delay. Patient is currently post-operative day #8 and has been displaying increased leukocytosis since the surgery. Patient himself is intubated and ventilated. He was brought to MICU and remain here since. He required intubation and ventilation. Signs of aspiration pneumonia. On meropenem for now. Persistent leukocytosis. Patient in critical condition. Right IJ placed by MICU team. Case discussed with Dr. Pringle and Dr. Molina. The patient is on Meropenem and Flagyl for antibiotic coverage. Leukocytosis has worsened to 31.5 today. Patient remains in critical condition but seems to have no further deterioration. Patient did receive 6 U of PRBCs, 4 U of FFP, and 1 U of platelets during the first 24 hours in ICU. Surgery has asked for a C. diff study which is negative. Melena and blood clots from rectum have slowed down considerably. Patient has an extremely poor prognosis. Objective - Vital Signs/Intake and Output Vital Signs (last 24 hours): Temp Pulse Resp BP Pulse Ox 99.2 F 109 H 24 96/46 L 95 05/30/16 20:00 05/30/16 23:20 05/30/16 23:20 05/30/16 17:21 05/30/16 23:20 Intake and Output: 05/30/16 05/31/16 18:59 06:59 Intake Total 1268 Output Total 1999 Balance -732 - Medications Medications: Current Medications Acetaminophen (Tylenol 325mg Tab) 650 mg PO Q4H PRN PRN Reason: FEVER, PAIN Albuterol/Ipratropium (Duoneb 3 Mg/0.5 Mg (3 Ml) Ud) 3 ml IH [id number] SHARIF Last Admin: 05/30/16 19:50 Dose: 3 ml Furosemide (Lasix) 40 mg IVP Q12 SHARIF Last Admin: 05/30/16 09:35 Dose: 40 mg Metronidazole (Flagyl) 100 mls @ 100 mls/hr IVPB Q8 SHARIF PRN Reason: Protocol Last Admin: 05/30/16 21:00 Dose: 100 mls/hr Pantoprazole Sodium (Protonix 40mg Ivpb) 100 mls @ 20 mls/hr IVPB .Q5H SHARIF Last Admin: 05/30/16 22:21 Dose: 20 mls/hr Midazolam 100 mg/100ml in NS (Midazolam 100 Mg/100ml In Ns) 100 mls @ 1 mls/hr IV .Q24H PRN; Protocol; 1 MG/HR PRN Reason: Pain, moderate (4-7) Last Admin: 05/30/16 00:12 Dose: 7 mls/hr Sodium Bicarbonate 75 meq/ (Dextrose/Sodium Chloride) 1,075 mls @ 100 mls/hr IV .[id number] SHARIF Last Admin: 05/27/16 04:47 Dose: 100 mls/hr Norepinephrine Bitartrate 4 mg (/ Dextrose) 254 mls @ 15.24 mls/hr IV .[id number] PRN; Protocol; 4 MCG/MIN PRN Reason: TITRATE PER MD ORDER Last Titration: 05/27/16 19:00 Dose: 0 mcg/min Amiodarone HCl/Dextrose (Nexterone 360 Mg In D5w 200 Ml (Premix)) 200 mls @ 33.333 mls/hr IV .Q6H SHARIF; 1 MG/MIN PRN Reason: Protocol Meropenem 1 gm/ Sodium (Chloride) 100 mls @ 100 mls/hr IVPB Q8 SHARIF PRN Reason: Protocol Stop: 06/01/16 23:59 Last Admin: 05/30/16 21:00 Dose: 100 mls/hr Fentanyl Citrate (Fentanyl Citrate/Sodium Chloride 1 Mg/100 Ml) 100 mls @ 7.5 mls/hr IV .[id number] PRN; Protocol; 75 MCG/HR PRN Reason: TITRATE PER MD ORDER Last Admin: 05/30/16 11:19 Dose: 9 mls/hr Cisatracurium Besylate 200 mg/ (Sodium Chloride) 200 mls @ 4.35 mls/hr IV .Q24H PRN; Protocol; 1 MCG/KG/MIN PRN Reason: TITRATE PER MD ORDER Last Admin: 05/30/16 04:17 Dose: 4.35 mls/hr Multivitamins/Vitamin C 10 ml/Chromium/Copper/Manganese/Zinc 1 ml/ Amino Acids 1,011 mls @ 42 mls/hr IV .Q24H SHARIF Stop: 05/31/16 17:59 Last Admin: 05/30/16 17:08 Dose: 42 mls/hr Vancomycin HCl (Vancomycin 1gm) 250 mls @ 167 mls/hr IVPB Q12H SHARIF PRN Reason: Protocol Last Admin: 05/30/16 17:07 Dose: 167 mls/hr Lorazepam (Ativan) 2 mg IVP Q3 PRN; Protocol PRN Reason: Agitation Methylprednisolone (Solu-Medrol) 40 mg IVP Q12 SHARIF Last Admin: 05/30/16 21:01 Dose: 40 mg Morphine Sulfate (Morphine) 2 mg IVP Q2H PRN PRN Reason: Agitation - Labs Labs: 05/30/16 14:40 05/30/16 14:40 PT 16.7 Seconds (9.9-11.8) H 05/27/16 17:35 INR 1.55 (0.93-1.08) H 05/27/16 17:35 APTT 28.1 Seconds (23.7-30.8) 05/27/16 17:35 - Constitutional Appears: Non-toxic, No Acute Distress, Chronically Ill - Head Exam Head Exam: ATRAUMATIC, NORMOCEPHALIC - Eye Exam Eye Exam: EOMI, PERRL Pupil Exam: NORMAL ACCOMODATION, PERRL - ENT Exam ENT Exam: Mucous Membranes Moist, Normal External Ear Exam, TM's Normal Bilaterally - Neck Exam Additional comments: intubated and ventilated. - Respiratory Exam Respiratory Exam: Clear to Ausculation Bilateral, NORMAL BREATHING PATTERN. absent: Rales, Rhonchi, Wheezes - Cardiovascular Exam Cardiovascular Exam: REGULAR RHYTHM, RRR, +S1, +S2 - GI/Abdominal Exam GI & Abdominal Exam: Distended, Soft, Normal Bowel Sounds. absent: Tenderness Additional comments: mild distension - Extremities Exam Additional comments: thin and cachetic. edema +1-2 of the bilateral upper extremities. Scrotal swelling. mild edema of the lower extremities. - Neurological Exam Additional comments: Intubated, ventilated, and poorly responsive. - Psychiatric Exam Additional comments: Intubated, ventilated, and poorly responsive. Assessment and Plan - Assessment and Plan (Free Text) Assessment: 85 yo male with cecal mass and bilateral hernia had exploratory laparotomy with right hemicolectomy. The patient is unable to give any significant information when speaking with him. He is not complaining of pain. The patient leukocytosis remains elevated at 31.5. There is a mild left shift to the leukocytosis. Supportive care. Silva cultures sent. Had Proteus in urine culture over a week ago but more recent urine culture is negative for growth. No growth in recent cultures so far. C. Diff studies negative. Currently on Meropenem and Flagyl for antibiotic coverage. Supportive care. CT Scan results noted with small bowel obstruction proximal to the right hernia sac containing dilated loops of small bowel. Findings consistent with incarceration and secondary proximal bowel obstruction. GI bleeding scan showing active bleed on both sides of the pelvis probably within the sigmoid colon. Surgery aware of findings - no intervention at this time. Remains in MICU and required intubation and ventilation. On antibiotics of Vancomycin, Meropenem, and Flagyl currently. Awaiting repeat cultures - negative to date at 5 days. No further surgical interventions. Possible aspiration pneumonia. Bleed at anastomotic site. Patient remains unstable. CT when patient stable enough to do so. Repeat Abdominal X-ray shows resolvement of SBO portion of disease. Patient remains critically ill and has an extremely poor prognosis. Thank you for allowing me to participate in the care of the patient, we will follow with you.
[2016-05-31] MEDS: Albuterol-Ipratrop 3 mg / 0.5 (3 ml) UD IH SCH ×4 (01:35→19:55)
--- NOTE | 2016-05-31 02:02 | PN ---
DATE: 05/30/2016 SUBJECTIVE: This patient was seen and evaluated earlier. The patient remains on the ventilator. PHYSICAL EXAMINATION: VITAL SIGNS: Temperature is afebrile, heart rate is 104, blood pressure is 102/ 51, O2 sat is 92%. HEENT: Atraumatic, anicteric. NECK: Supple. HEART: S1, S2 heard. LUNGS: Bilateral air entry present. ABDOMEN: Soft. Dressing present. EXTREMITIES: No cyanosis, no clubbing. LABORATORY DATA: Hemoglobin 10.2, hematocrit 32.5, WBC still remains elevated at 25.9. BUN 34, creatinine 0.9, mildly elevated transaminases, AST 79, ALT 81. IMPRESSION: This 85-year-old patient is status post laparotomy with postop anastomotic bleeding. Has inguinal hernia, sepsis and respiratory failure on vent. RECOMMENDATIONS: 1. Followup of the hemoglobin. 2. Continue his antibiotics as per ID for sepsis. The patient is code, status post cardiac resuscitation, the CAT scan is pending further clinical improvement. The patient will go to CAT scan when he is stable enough to go for the scan. At the present time, he is considered too high a risk for transportation to the CAT scan. Continue the antibiotics, close followup. Continue the PPI. The patient did have a history of iron deficiency anemia. Endoscopy revealed tiny, small AVM in the stomach, which was cauterized. The patient will continue the PPI. We will continue to closely follow up his care and suggest further management based on the clinical course. Ann Luna MD cc: [phone] TT: 05/31/2016 02:01:23 Confirmation # [id number] Dictation # [id number] tn MTDChely
[2016-05-31] MEDS: Pantoprazole 40mg/100ml IVPB 100 ML IVPB SCH ×4 (04:14→21:20)
[2016-05-31] MEDS: metroNIDAZOLE IV 500 mg/100 ml 100 ML IVPB SCH ×3 (05:03→21:45)
[2016-05-31] MEDS: Vancomycin 1gm in NS 250ml 250 ML IVPB SCH ×2 (05:04→19:12)
[2016-05-31] MEDS: Meropenem 1 GM in Sodium Chloride 0.9% 100 ML IVPB SCH (05:04)
[2016-05-31 05:19] LABS: ARTERIAL BLOOD GAS HCO3 33.1 mmol/L (21-28); ARTERIAL BLOOD GAS PH 7.38 (7.35-7.45)
[2016-05-31 06:04] LABS: HEMATOCRIT 36.1 % (42.0-52.0); MEAN CELL VOLUME 93.8 fL (80.0-105.0); MEAN CORPUSCULAR HEMOGLOBIN 28.8 pg (25.0-35.0); MEAN CORPUSCULAR HGB CONC 30.7 g/dl (31.0-37.0); MEAN PLATELET VOLUME 11.1 fl (7.0-11.0); PLATELET COUNT 198 10^3/uL (120.0-450.0)
[2016-05-31 06:14] LABS: WHITE BLOOD COUNT 29.6 10^3/ul (4.5-11.0)
[2016-05-31 06:27] LABS: ALB/GLOB RATIO 0.8 (1.1-1.8); ALKALINE PHOSPHATASE 71 U/L (38-133); ALT/SGPT 67 U/L (7-56); AST/SGOT 52 U/L (15-59); BILIRUBIN,TOTAL 0.6 mg/dL (0.2-1.3); BLOOD UREA NITROGEN 37 mg/dL (7-21); CALCIUM 7.4 mg/dL (8.4-10.5); CARBON DIOXIDE 35 mmol/L (21-33); CHLORIDE 110 mmol/L (98-107); GFR AFRICAN-AMERICAN > 60; GLUCOSE,RANDOM 139 mg/dL (70-110); POTASSIUM 3.7 mmol/L (3.6-5.0); SODIUM 150 mmol/L (132-148)
[2016-05-31 07:05] LABS: BAND 2 % (0-2); NEUTROPHIL 90 % (50.0-70.0); PLATELET ESTIMATE NORMAL (NORMAL)
[2016-05-31 07:06] LABS: HYPOCHROMIA 1+
[2016-05-31 08:01] LABS: MAGNESIUM 2.6 mg/dL (1.7-2.2); PHOSPHOROUS 2.7 mg/dL (2.5-4.5)
--- NOTE | 2016-05-31 08:31 | CP.PCM.PN ---
Subjective - Date & Time of Evaluation Date of Evaluation: 05/31/16 Time of Evaluation: 08:28 - Subjective Subjective: Surgery: Dr. Peterson Pt seen and examined. Per nursing no acute events overnight. Pt remains intubated. Off paralytics. Per nursing no bloody BMs, and minimal OGT output. Objective - Vital Signs/Intake and Output Vital Signs (last 24 hours): Temp Pulse Resp BP Pulse Ox 98.3 F 98 H 29 H 96/46 L 94 L 05/31/16 04:00 05/31/16 06:20 05/31/16 07:27 05/30/16 17:21 05/31/16 07:27 Intake and Output: 05/31/16 05/31/16 06:59 18:59 Intake Total 1334 Output Total 825 Balance 509 - Medications Medications: Current Medications Acetaminophen (Tylenol 325mg Tab) 650 mg PO Q4H PRN PRN Reason: FEVER, PAIN Albuterol/Ipratropium (Duoneb 3 Mg/0.5 Mg (3 Ml) Ud) 3 ml IH [id number] SHARIF Last Admin: 05/31/16 07:16 Dose: 3 ml Furosemide (Lasix) 40 mg IVP Q12 SHARIF Last Admin: 05/30/16 09:35 Dose: 40 mg Metronidazole (Flagyl) 100 mls @ 100 mls/hr IVPB Q8 SHARIF PRN Reason: Protocol Last Admin: 05/31/16 05:03 Dose: 100 mls/hr Pantoprazole Sodium (Protonix 40mg Ivpb) 100 mls @ 20 mls/hr IVPB .Q5H SHARIF Last Admin: 05/31/16 04:14 Dose: 20 mls/hr Midazolam 100 mg/100ml in NS (Midazolam 100 Mg/100ml In Ns) 100 mls @ 1 mls/hr IV .Q24H PRN; Protocol; 1 MG/HR PRN Reason: Pain, moderate (4-7) Last Admin: 05/30/16 00:12 Dose: 7 mls/hr Sodium Bicarbonate 75 meq/ (Dextrose/Sodium Chloride) 1,075 mls @ 100 mls/hr IV .[id number] [facility] Last Admin: 05/27/16 04:47 Dose: 100 mls/hr Norepinephrine Bitartrate 4 mg (/ Dextrose) 254 mls @ 15.24 mls/hr IV .[id number] PRN; Protocol; 4 MCG/MIN PRN Reason: TITRATE PER MD ORDER Last Titration: 05/27/16 19:00 Dose: 0 mcg/min Amiodarone HCl/Dextrose (Nexterone 360 Mg In D5w 200 Ml (Premix)) 200 mls @ 33.333 mls/hr IV .Q6H SHARIF; 1 MG/MIN PRN Reason: Protocol Meropenem 1 gm/ Sodium (Chloride) 100 mls @ 100 mls/hr IVPB Q8 SHARIF PRN Reason: Protocol Stop: 06/01/16 23:59 Last Admin: 05/31/16 05:04 Dose: 100 mls/hr Fentanyl Citrate (Fentanyl Citrate/Sodium Chloride 1 Mg/100 Ml) 100 mls @ 7.5 mls/hr IV .[id number] PRN; Protocol; 75 MCG/HR PRN Reason: TITRATE PER MD ORDER Last Admin: 05/30/16 11:19 Dose: 9 mls/hr Cisatracurium Besylate 200 mg/ (Sodium Chloride) 200 mls @ 4.35 mls/hr IV .Q24H PRN; Protocol; 1 MCG/KG/MIN PRN Reason: TITRATE PER MD ORDER Last Admin: 05/30/16 04:17 Dose: 4.35 mls/hr Multivitamins/Vitamin C 10 ml/Chromium/Copper/Manganese/Zinc 1 ml/ Amino Acids 1,011 mls @ 42 mls/hr IV .Q24H SHARIF Stop: 05/31/16 17:59 Last Admin: 05/30/16 17:08 Dose: 42 mls/hr Vancomycin HCl (Vancomycin 1gm) 250 mls @ 167 mls/hr IVPB Q12H SHARIF PRN Reason: Protocol Last Admin: 05/31/16 05:04 Dose: 167 mls/hr Lorazepam (Ativan) 2 mg IVP Q3 PRN; Protocol PRN Reason: Agitation Methylprednisolone (Solu-Medrol) 40 mg IVP Q12 SHARIF Last Admin: 05/30/16 21:01 Dose: 40 mg Morphine Sulfate (Morphine) 2 mg IVP Q2H PRN PRN Reason: Agitation - Labs Labs: 05/31/16 05:56 05/31/16 05:56 PT 16.7 Seconds (9.9-11.8) H 05/27/16 17:35 INR 1.55 (0.93-1.08) H 05/27/16 17:35 APTT 28.1 Seconds (23.7-30.8) 05/27/16 17:35 - Constitutional Appears: Non-toxic, Chronically Ill - Head Exam Head Exam: ATRAUMATIC, NORMOCEPHALIC - ENT Exam Additional comments: OGT in place - Respiratory Exam Additional comments: Intubated - GI/Abdominal Exam GI & Abdominal Exam: Soft. absent: Distended, Firm, Guarding, Rigid, Tenderness Additional comments: Incision, C/D/I Large B/L inguinal hernias - Extremities Exam Additional comments: B/L UE and LE edema - Neurological Exam Neurological Exam: absent: Alert, Awake Assessment and Plan - Assessment and Plan (Free Text) Assessment: 85M w. B/L inguinal hernias and cecal mass, s/p ex-lap w. R hemicolectomy, POD#9 , complicated by GI bleed which is resolved -GI bleed likely from anastomosis site -H/H stable, continue to monitor, transfuse PRN -minimal OGT output -repeat CT w. PO contrast when pt is stable enough to go to CT scan -c/w abx -several attempts have been made through out hospital to contact family, Servando Potter [phone], these attempts have been unsuccessful -will continue to follow closely -d/w attending Mily PGY2
--- NOTE | 2016-05-31 09:15 | CP.CCUPN ---
Addendum entered and electronically signed by Roger Britton DO 05/31/16 11:00: PEEP decreased to 10. Pt can go to CT abd with PO contrast once vent PEEP below 7. Neuro consult for AMS f/u Vanco trough Original Note: <Roger Britton - Last Filed: 05/31/16 09:08> CCU Subjective - Physician Review Subjective (Free Text): Pt s&e w ICU attending. Pt is sedated on Morphine, Ativan PRN. Pt is intubated at fio2 55, 12, 20, 350. On PPN. Regular BM. No blood. Pt in unarousable. 05/31/16 09:08 CCU Objective - Vital Signs / Intake & Output Vital Signs (Last 4 hours): Vital Signs Pulse Resp Pulse Ox 05/31/16 07:27 29 H 94 L 05/31/16 06:20 98 H 27 H 94 L 05/31/16 06:00 99 H 22 93 L 05/31/16 05:40 103 H 23 92 L 05/31/16 05:20 101 H 24 91 L Intake and Output (Last 8hrs): Intake & Output 05/30/16 05/31/16 05/31/16 22:59 06:59 14:59 Intake Total 1268 1334 Output Total 1999 825 Balance -732 509 Weight 158 lb 3.2 oz Intake: IV 870 Right Internal Jugular 870 TPN/PPN 504 464 Other 764 Output: Urine 1999 825 2-way Urethral 1999 825 Emesis 0 Other: Voiding Method Indwelling Catheter Indwelling Catheter # Bowel Movements 0 - Physical Exam Head: Positive for: Atraumatic, Normocephalic. Negative for: Ecchymosis Conjunctiva: Negative for: Injected, Icteric Mouth: Positive for: Moist Mucous Membranes Pharnyx: Negative for: ERYTHEMA Nose (Internal): Positive for: Normal Inspection, No Active Bleeding Respiratory/Chest: Positive for: Respiratory Distress, Other (Intubated. ). Negative for: Tachypneic Cardiovascular: Positive for: Regular Rate and Rhythm, Normal S1, S2 Abdomen: Positive for: Hernias. Negative for: Tenderness, Distention, Peritoneal Signs, Rebound, Guarding Genitourinary Male: Positive for: Testicle Tenderness, Hernias, Testicle Swelling, Other (Large [id number] R inguinal hernia: irreducible. 10x5cm L inguinal hernia : irreducible.). Negative for: Normal External Genitalia Upper Extremity: Positive for: Edema, Swelling. Negative for: Erythema Lower Extremity: Positive for: Edema, Swelling. Negative for: Cyanosis Skin: Positive for: Warm, Dry Psychiatric: Negative for: Alert, Oriented x 3, Normal Insight - Medications Active Medications: Active Medications Generic Name Dose Route Start Last Admin Trade Name Freq PRN Reason Stop Dose Admin Acetaminophen 650 mg 05/17/16 08:33 Tylenol 325mg Tab PO Q4H PRN FEVER, PAIN Albuterol/Ipratropium 3 ml 05/30/16 14:00 05/31/16 07:16 Duoneb 3 Mg/0.5 Mg (3 Ml) Ud IH 3 ml [id number] SHARIF Administration Furosemide 40 mg 05/28/16 10:00 05/30/16 09:35 Lasix IVP 40 mg Q12 SHARIF Administration Metronidazole 100 mls @ 100 mls/hr 05/24/16 08:15 05/31/16 05:03 Flagyl IVPB 100 mls/hr Q8 SHARIF Administration Protocol Pantoprazole Sodium 100 mls @ 20 mls/hr 05/26/16 10:30 05/31/16 04:14 Protonix 40mg Ivpb IVPB 20 mls/hr .Q5H SHARIF Administration Midazolam 100 mg/100ml in NS 100 mls @ 1 mls/hr 05/26/16 10:42 05/30/16 00:12 Midazolam 100 Mg/100ml In Ns IV 7 mls/hr .Q24H PRN Administration Pain, moderate (4-7) Protocol 1 MG/HR Sodium Bicarbonate 75 meq/ 1,075 mls @ 100 mls/hr 05/26/16 14:30 05/27/16 04:47 Dextrose/Sodium Chloride IV 100 mls/hr .[id number] SHARIF Administration Norepinephrine Bitartrate 4 mg 254 mls @ 15.24 mls/hr 05/26/16 15:52 05/27/16 19:00 / Dextrose IV 0 mcg/min .[id number] PRN Titration TITRATE PER MD ORDER Protocol 4 MCG/MIN Amiodarone HCl/Dextrose 200 mls @ 33.333 mls/hr 05/26/16 16:00 Nexterone 360 Mg In D5w 200 Ml (Premix) IV .Q6H SHARIF Protocol 1 MG/MIN Meropenem 1 gm/ Sodium 100 mls @ 100 mls/hr 05/26/16 17:00 05/31/16 05:04 Chloride IVPB 06/01/16 23:59 100 mls/hr Q8 SHARIF Administration Protocol Fentanyl Citrate 100 mls @ 7.5 mls/hr 05/27/16 09:07 05/30/16 11:19 Fentanyl Citrate/Sodium Chloride 1 Mg/100 Ml IV 9 mls/hr .[id number] PRN Administration TITRATE PER MD ORDER Protocol 75 MCG/HR Cisatracurium Besylate 200 mg/ 200 mls @ 4.35 mls/hr 05/27/16 12:21 05/30/16 04 :17 Sodium Chloride IV 4.35 mls/hr .Q24H PRN Administration TITRATE PER MD ORDER Protocol 1 MCG/KG/MIN Multivitamins/Vitamin C 10 ml/ 1,011 mls @ 42 mls/hr 05/28/16 18:00 05/30/16 17 :08 Chromium/Copper/Manganese/ IV 05/31/16 17:59 42 mls/hr Zinc 1 ml/ Amino Acids .Q24H SHARIF Administration Vancomycin HCl 250 mls @ 167 mls/hr 05/28/16 18:00 05/31/16 05:04 Vancomycin 1gm IVPB 167 mls/hr Q12H SHARIF Administration Protocol Lorazepam 2 mg 05/30/16 17:01 Ativan IVP Q3 PRN Agitation Protocol Methylprednisolone 40 mg 05/30/16 10:00 05/30/16 21:01 Solu-Medrol IVP 40 mg Q12 SHARIF Administration Morphine Sulfate 2 mg 05/30/16 17:00 Morphine IVP Q2H PRN Agitation - Patient Studies Lab Studies: Lab Studies 05/31/16 05/31/16 05/31/16 Range/Units 05:56 05:30 05:16 WBC 29.6 H* (4.5-11.0) 10^3/ul RBC 3.85 (3.5-6.1) 10^6/uL Hgb 11.1 L (14.0-18.0) gm/dL Hct 36.1 L (42.0-52.0) % MCV 93.8 (80.0-105.0) fL MCH 28.8 (25.0-35.0) pg MCHC 30.7 L (31.0-37.0) g/dl RDW 19.0 H (11.5-14.5) % Plt Count 198 (120.0-450.0) 10^3/uL MPV 11.1 H (7.0-11.0) fl Gran % (50.0-68.0) % Lymph % (Auto) (22.0-35.0) % [place] % (Auto) (1.0-6.0) % Eos % (Auto) (1.5-5.0) % Baso % (Auto) (0.0-3.0) % Gran # (1.4-6.5) Lymph # (1.2-3.4) [place] # (0.1-0.6) Eos # (0.0-0.7) Baso # (0.0-2.0) K/mm3 Neutrophils % (Manual) 90 H (50.0-70.0) % Band Neutrophils % 2 (0-2) % Lymphocytes % (Manual) 6 L (22.0-35.0) % Monocytes % (Manual) 2 (1.0-6.0) % Platelet Evaluation Normal (NORMAL) Hypochromasia 1+ pCO2 56 H (35-45) mm/Hg pO2 87.0 (80-100) mm/Hg HCO3 33.1 H (21-28) mmol/L ABG pH 7.38 (7.35-7.45) ABG Total CO2 34.8 H (22-28) mmol.L ABG O2 Saturation 97.6 (95-98) % ABG Base Excess 6.3 H (-2.0-3.0) mmol/L ABG Potassium 3.5 L (3.6-5.2) mmol/L Glucose 141 H (75-110) mg/dl Lactate 1.3 (0.7-2.1) mmol/L FiO2 55.0 % Sodium 150 H 148.0 (132-148) mmol/L Potassium 3.7 (3.6-5.0) mmol/L Chloride 110 H 119.0 H (98-107) mmol/L Carbon Dioxide 35 H (21-33) mmol/L Anion Gap 9 L (10-20) BUN 37 H (7-21) mg/dL Creatinine 0.7 (0.5-1.4) mg/dL Est GFR ( Amer) > 60 Est GFR (Non-Af Amer) > 60 Random Glucose 139 H (70-110) mg/dL Calcium 7.4 L (8.4-10.5) mg/dL Phosphorus 2.7 (2.5-4.5) mg/dL Magnesium 2.6 H (1.7-2.2) mg/dL Total Bilirubin 0.6 (0.2-1.3) mg/dL AST 52 (15-59) U/L ALT 67 H (7-56) U/L Alkaline Phosphatase 71 (38-133) U/L Total Protein 5.0 L (5.8-8.3) g/dL Albumin 2.2 L (3.0-4.8) g/dL Globulin 2.8 gm/dL Albumin/Globulin Ratio 0.8 L (1.1-1.8) Arterial Blood Potassium 3.5 L (3.6-5.2) mmol/L / Range/Units 14:40 WBC 31.5 H* D (4.5-11.0) 10^3/ul RBC 3.88 (3.5-6.1) 10^6/uL Hgb 11.1 L (14.0-18.0) gm/dL Hct 35.9 L (42.0-52.0) % MCV 92.5 (80.0-105.0) fL MCH 28.6 (25.0-35.0) pg MCHC 30.9 L (31.0-37.0) g/dl RDW 18.9 H (11.5-14.5) % Plt Count 180 (120.0-450.0) 10^3/uL MPV 10.6 (7.0-11.0) fl Gran % 93.2 H (50.0-68.0) % Lymph % (Auto) 2.8 L (22.0-35.0) % [place] % (Auto) 3.7 (1.0-6.0) % Eos % (Auto) 0.1 L (1.5-5.0) % Baso % (Auto) 0.2 (0.0-3.0) % Gran # 29.40 H (1.4-6.5) Lymph # 0.9 L (1.2-3.4) [place] # 1.2 H (0.1-0.6) Eos # 0.0 (0.0-0.7) Baso # 0.05 (0.0-2.0) K/mm3 Neutrophils % (Manual) (50.0-70.0) % Band Neutrophils % (0-2) % Lymphocytes % (Manual) (22.0-35.0) % Monocytes % (Manual) (1.0-6.0) % Platelet Evaluation (NORMAL) Hypochromasia pCO2 (35-45) mm/Hg pO2 (80-100) mm/Hg HCO3 (21-28) mmol/L ABG pH (7.35-7.45) ABG Total CO2 (22-28) mmol.L ABG O2 Saturation (95-98) % ABG Base Excess (-2.0-3.0) mmol/L ABG Potassium (3.6-5.2) mmol/L Glucose (75-110) mg/dl Lactate (0.7-2.1) mmol/L FiO2 % Sodium 147 (132-148) mmol/L Potassium 3.6 (3.6-5.0) mmol/L Chloride 109 H (98-107) mmol/L Carbon Dioxide 34 H (21-33) mmol/L Anion Gap 8 L (10-20) BUN 34 H (7-21) mg/dL Creatinine 0.8 (0.5-1.4) mg/dL Est GFR ( Amer) > 60 Est GFR (Non-Af Amer) > 60 Random Glucose 109 (70-110) mg/dL Calcium 7.5 L (8.4-10.5) mg/dL Phosphorus 1.5 L (2.5-4.5) mg/dL Magnesium 2.6 H (1.7-2.2) mg/dL Total Bilirubin 0.8 (0.2-1.3) mg/dL AST 70 H (15-59) U/L ALT 72 H (7-56) U/L Alkaline Phosphatase 81 (38-133) U/L Total Protein 5.1 L (5.8-8.3) g/dL Albumin 2.4 L (3.0-4.8) g/dL Globulin 2.7 gm/dL Albumin/Globulin Ratio 0.9 L (1.1-1.8) Arterial Blood Potassium (3.6-5.2) mmol/L Laboratory Results - last 24 hr 05/30/16 05/31/16 05/31/16 14:40 05:16 05:30 WBC 31.5 H* D RBC 3.88 Hgb 11.1 L Hct 35.9 L MCV 92.5 MCH 28.6 MCHC 30.9 L RDW 18.9 H Plt Count 180 MPV 10.6 Gran % 93.2 H Lymph % (Auto) 2.8 L [place] % (Auto) 3.7 Eos % (Auto) 0.1 L Baso % (Auto) 0.2 Gran # 29.40 H Lymph # 0.9 L [place] # 1.2 H Eos # 0.0 Baso # 0.05 Neutrophils % (Manual) Band Neutrophils % Lymphocytes % (Manual) Monocytes % (Manual) Platelet Evaluation Hypochromasia pCO2 56 H pO2 87.0 HCO3 33.1 H ABG pH 7.38 ABG Total CO2 34.8 H ABG O2 Saturation 97.6 ABG Base Excess 6.3 H ABG Potassium 3.5 L Glucose 141 H Lactate 1.3 FiO2 55.0 Sodium 147 148.0 Potassium 3.6 Chloride 109 H 119.0 H Carbon Dioxide 34 H Anion Gap 8 L BUN 34 H Creatinine 0.8 Est GFR ( Amer) > 60 Est GFR (Non-Af Amer) > 60 Random Glucose 109 Calcium 7.5 L Phosphorus 1.5 L 2.7 Magnesium 2.6 H 2.6 H Total Bilirubin 0.8 AST 70 H ALT 72 H Alkaline Phosphatase 81 Total Protein 5.1 L Albumin 2.4 L Globulin 2.7 Albumin/Globulin Ratio 0.9 L Arterial Blood Potassium 3.5 L 05/31/16 05:56 WBC 29.6 H* RBC 3.85 Hgb 11.1 L Hct 36.1 L MCV 93.8 MCH 28.8 MCHC 30.7 L RDW 19.0 H Plt Count 198 MPV 11.1 H Gran % Lymph % (Auto) [place] % (Auto) Eos % (Auto) Baso % (Auto) Gran # Lymph # [place] # Eos # Baso # Neutrophils % (Manual) 90 H Band Neutrophils % 2 Lymphocytes % (Manual) 6 L Monocytes % (Manual) 2 Platelet Evaluation Normal Hypochromasia 1+ pCO2 pO2 HCO3 ABG pH ABG Total CO2 ABG O2 Saturation ABG Base Excess ABG Potassium Glucose Lactate FiO2 Sodium 150 H Potassium 3.7 Chloride 110 H Carbon Dioxide 35 H Anion Gap 9 L BUN 37 H Creatinine 0.7 Est GFR ( Amer) > 60 Est GFR (Non-Af Amer) > 60 Random Glucose 139 H Calcium 7.4 L Phosphorus Magnesium Total Bilirubin 0.6 AST 52 ALT 67 H Alkaline Phosphatase 71 Total Protein 5.0 L Albumin 2.2 L Globulin 2.8 Albumin/Globulin Ratio 0.8 L Arterial Blood Potassium Fingerstick Blood Sugar Results: 141 Review of Systems - Review of Systems Systems not reviewed;Unavailable: Intubated Critical Care Progress Note - Ventilator Checklist Head of Bed 30 Degrees: Yes PUD Prophalyxis: Yes DVT Prophylaxis: Yes - Nutrition Nutrition: Nutrition Category Date Time Status NPO Diet [DIET] Diets 05/26/16 Breakfast Ordered Assessment/Plan - Assessment and Plan (Free Text) Assessment: The patient is a 66 year old man with a history of developmental delay, iron deficiency anemia, and degenerative arthritis who was admitted to [facility] on with bilateral, non-reducible inguinal hernias and a CT-scan showing a large cecal mass, concerning for malignancy. As a result, he underwent an exploratory laparotomy and right hemicolectomy (with pathology of cecal mass still pending) . Because of the hemicolectomy, and the large size of the patients bilateral inguinal hernias could not be repaired during the procedure. Post-operatively, the patient developed marked leukocytosis which is being treated with IV Merrem , vanco and Flagyl by ID consult. The CT scan shows an incarcerated right hernia sac with secondary small bowel obstruction, which general surgery manually reduced but reccuring. The bleeding scan shows active bleeding most likely from the sigmoid colon. Bleeding resolved. Pt intubated. Hypoxic respiratory failure ventilator dependent 2/2 aspiration pneumonia and ARDS Hemorrhagic shock 2/2 GI bleed: resolved. off pressors Neuro: Mental Retardation Maintain normothermia -Morphine, Ativan PRN CV: Hemodynamically stable: Off pressors Maintain MAP >65 DC Lasix Pulm: CXR : b/l infiltration Maintain Sp02>90 , TV 6ml/kg IBW, Plateau pressure <30 Vent setting at 55% fio2/12/20/350 ABX Lasix DCed Possible trach Duoneb Steroid GI: S/P R nimo for SBO and cecal mass Bloody BM: resolved NPO Protonix drip Hold PO meds Hold hepatin sub Q, colace GI on board CT w PO contrast when Pt stable Poss Tube feed after CT NGT Heme: 6 PRBC given CBC 11 today Transfuse if Hgb <8 Renal/: Urine output 3L /24hrs. Cr 0.7 Hernia recurrent bilaterally Continue to monitor electrolytes will replace/replete as needed Lasix held ID: Urine cx 05/16 : Proteus sensitive for cefetpime and Cipro Leukocystosis 30 today. Silva- cultures pending Vanc/Merrem/Flagyl ID on board Endo: Maintain euglycemia GI ppx: PTX DVT ppx: SCDs Disposition: Guarded. Contact family for possible DNR/DNI Case seen, reviewed and discussed with attending <Albert Mojica - Last Filed: 05/31/16 11:52> CCU Objective - Vital Signs / Intake & Output Vital Signs (Last 4 hours): Vital Signs Temp Pulse Resp BP Pulse Ox 05/31/16 10:20 108 H 94 L 05/31/16 10:00 108 H 31 H 126/63 94 L 05/31/16 09:40 108 H 93 L 05/31/16 09:20 115 H 93 L 05/31/16 09:00 97.9 F 102 H 34 H 128/63 93 L 05/31/16 08:40 111 H 93 L 05/31/16 08:23 112 H 93 L 05/31/16 08:20 112 H 93 L 05/31/16 08:00 97.9 F 116 H 21 132/64 95 Intake and Output (Last 8hrs): Intake & Output 05/30/16 05/31/16 05/31/16 22:59 06:59 14:59 Intake Total 1268 1334 Output Total 1999 825 Balance -732 509 Weight 158 lb 3.2 oz Intake: IV 870 Right Internal Jugular 870 TPN/PPN 504 464 Other 764 Output: Urine 1999 825 2-way Urethral 1999 825 Emesis 0 Other: Voiding Method Indwelling Catheter Indwelling Catheter # Bowel Movements 0 - Medications Active Medications: Active Medications Generic Name Dose Route Start Last Admin Trade Name Freq PRN Reason Stop Dose Admin Acetaminophen 650 mg 05/17/16 08:33 Tylenol 325mg Tab PO Q4H PRN FEVER, PAIN Albuterol/Ipratropium 3 ml 05/30/16 14:00 05/31/16 07:16 Duoneb 3 Mg/0.5 Mg (3 Ml) Ud IH 3 ml [id number] SHARIF Administration Furosemide 40 mg 05/28/16 10:00 05/30/16 09:35 Lasix IVP 40 mg Q12 SHARIF Administration Metronidazole 100 mls @ 100 mls/hr 05/24/16 08:15 05/31/16 05:03 Flagyl IVPB 100 mls/hr Q8 SHARIF Administration Protocol Pantoprazole Sodium 100 mls @ 20 mls/hr 05/26/16 10:30 05/31/16 10:53 Protonix 40mg Ivpb IVPB 20 mls/hr .Q5H SHARIF Administration Midazolam 100 mg/100ml in NS 100 mls @ 1 mls/hr 05/26/16 10:42 05/30/16 00:12 Midazolam 100 Mg/100ml In Ns IV 7 mls/hr .Q24H PRN Administration Pain, moderate (4-7) Protocol 1 MG/HR Sodium Bicarbonate 75 meq/ 1,075 mls @ 100 mls/hr 05/26/16 14:30 05/27/16 04:47 Dextrose/Sodium Chloride IV 100 mls/hr .[id number] SHARIF Administration Norepinephrine Bitartrate 4 mg 254 mls @ 15.24 mls/hr 05/26/16 15:52 05/27/16 19:00 / Dextrose IV 0 mcg/min .[id number] PRN Titration TITRATE PER MD ORDER Protocol 4 MCG/MIN Amiodarone HCl/Dextrose 200 mls @ 33.333 mls/hr 05/26/16 16:00 Nexterone 360 Mg In D5w 200 Ml (Premix) IV .Q6H SHARIF Protocol 1 MG/MIN Meropenem 1 gm/ Sodium 100 mls @ 100 mls/hr 05/26/16 17:00 05/31/16 05:04 Chloride IVPB 06/01/16 23:59 100 mls/hr Q8 SHARIF Administration Protocol Fentanyl Citrate 100 mls @ 7.5 mls/hr 05/27/16 09:07 05/30/16 11:19 Fentanyl Citrate/Sodium Chloride 1 Mg/100 Ml IV 9 mls/hr .[id number] PRN Administration TITRATE PER MD ORDER Protocol 75 MCG/HR Cisatracurium Besylate 200 mg/ 200 mls @ 4.35 mls/hr 05/27/16 12:21 05/30/16 04 :17 Sodium Chloride IV 4.35 mls/hr .Q24H PRN Administration TITRATE PER MD ORDER Protocol 1 MCG/KG/MIN Multivitamins/Vitamin C 10 ml/ 1,011 mls @ 42 mls/hr 05/28/16 18:00 05/30/16 17 :08 Chromium/Copper/Manganese/ IV 05/31/16 17:59 42 mls/hr Zinc 1 ml/ Amino Acids .Q24H SHARIF Administration Vancomycin HCl 250 mls @ 167 mls/hr 05/28/16 18:00 05/31/16 05:04 Vancomycin 1gm IVPB 167 mls/hr Q12H SHARIF Administration Protocol Dextrose 1,000 mls @ 100 mls/hr 05/31/16 11:15 05/31/16 11:16 Dextrose 5% In Water 1000 Ml IV 100 mls/hr .Q10H SHARIF Administration Lorazepam 2 mg 05/30/16 17:01 Ativan IVP Q3 PRN Agitation Protocol Methylprednisolone 40 mg 05/30/16 10:00 05/31/16 10:41 Solu-Medrol IVP 40 mg Q12 SHARIF Administration Morphine Sulfate 2 mg 05/30/16 17:00 Morphine IVP Q2H PRN Agitation - Patient Studies Lab Studies: Lab Studies 05/31/16 05/31/16 05/31/16 Range/Units 10:59 05:56 05:30 WBC 29.6 H* (4.5-11.0) 10^3/ul RBC 3.85 (3.5-6.1) 10^6/uL Hgb 11.1 L (14.0-18.0) gm/dL Hct 36.1 L (42.0-52.0) % MCV 93.8 (80.0-105.0) fL MCH 28.8 (25.0-35.0) pg MCHC 30.7 L (31.0-37.0) g/dl RDW 19.0 H (11.5-14.5) % Plt Count 198 (120.0-450.0) 10^3/uL MPV 11.1 H (7.0-11.0) fl Gran % (50.0-68.0) % Lymph % (Auto) (22.0-35.0) % [place] % (Auto) (1.0-6.0) % Eos % (Auto) (1.5-5.0) % Baso % (Auto) (0.0-3.0) % Gran # (1.4-6.5) Lymph # (1.2-3.4) [place] # (0.1-0.6) Eos # (0.0-0.7) Baso # (0.0-2.0) K/mm3 Neutrophils % (Manual) 90 H (50.0-70.0) % Band Neutrophils % 2 (0-2) % Lymphocytes % (Manual) 6 L (22.0-35.0) % Monocytes % (Manual) 2 (1.0-6.0) % Platelet Evaluation Normal (NORMAL) Hypochromasia 1+ pCO2 (35-45) mm/Hg pO2 (80-100) mm/Hg HCO3 (21-28) mmol/L ABG pH (7.35-7.45) ABG Total CO2 (22-28) mmol.L ABG O2 Saturation (95-98) % ABG Base Excess (-2.0-3.0) mmol/L ABG Potassium (3.6-5.2) mmol/L Glucose (75-110) mg/dl Lactate (0.7-2.1) mmol/L FiO2 % Sodium 150 H (132-148) mmol/L Potassium 3.7 (3.6-5.0) mmol/L Chloride 110 H (98-107) mmol/L Carbon Dioxide 35 H (21-33) mmol/L Anion Gap 9 L (10-20) BUN 37 H (7-21) mg/dL Creatinine 0.7 (0.5-1.4) mg/dL Est GFR ( Amer) > 60 Est GFR (Non-Af Amer) > 60 Random Glucose 139 H (70-110) mg/dL Calcium 7.4 L (8.4-10.5) mg/dL Phosphorus 2.7 (2.5-4.5) mg/dL Magnesium 2.6 H (1.7-2.2) mg/dL Total Bilirubin 0.6 (0.2-1.3) mg/dL AST 52 (15-59) U/L ALT 67 H (7-56) U/L Alkaline Phosphatase 71 (38-133) U/L Total Protein 5.0 L (5.8-8.3) g/dL Albumin 2.2 L (3.0-4.8) g/dL Globulin 2.8 gm/dL Albumin/Globulin Ratio 0.8 L (1.1-1.8) Arterial Blood Potassium (3.6-5.2) mmol/L Vancomycin Trough 15.0 H (5.0-10.0) ug/mL 05/31/16 05/30/16 Range/Units 05:16 14:40 WBC 31.5 H* D (4.5-11.0) 10^3/ul RBC 3.88 (3.5-6.1) 10^6/uL Hgb 11.1 L (14.0-18.0) gm/dL Hct 35.9 L (42.0-52.0) % MCV 92.5 (80.0-105.0) fL MCH 28.6 (25.0-35.0) pg MCHC 30.9 L (31.0-37.0) g/dl RDW 18.9 H (11.5-14.5) % Plt Count 180 (120.0-450.0) 10^3/uL MPV 10.6 (7.0-11.0) fl Gran % 93.2 H (50.0-68.0) % Lymph % (Auto) 2.8 L (22.0-35.0) % [place] % (Auto) 3.7 (1.0-6.0) % Eos % (Auto) 0.1 L (1.5-5.0) % Baso % (Auto) 0.2 (0.0-3.0) % Gran # 29.40 H (1.4-6.5) Lymph # 0.9 L (1.2-3.4) [place] # 1.2 H (0.1-0.6) Eos # 0.0 (0.0-0.7) Baso # 0.05 (0.0-2.0) K/mm3 Neutrophils % (Manual) (50.0-70.0) % Band Neutrophils % (0-2) % Lymphocytes % (Manual) (22.0-35.0) % Monocytes % (Manual) (1.0-6.0) % Platelet Evaluation (NORMAL) Hypochromasia pCO2 56 H (35-45) mm/Hg pO2 87.0 (80-100) mm/Hg HCO3 33.1 H (21-28) mmol/L ABG pH 7.38 (7.35-7.45) ABG Total CO2 34.8 H (22-28) mmol.L ABG O2 Saturation 97.6 (95-98) % ABG Base Excess 6.3 H (-2.0-3.0) mmol/L ABG Potassium 3.5 L (3.6-5.2) mmol/L Glucose 141 H (75-110) mg/dl Lactate 1.3 (0.7-2.1) mmol/L FiO2 55.0 % Sodium 148.0 147 (132-148) mmol/L Potassium 3.6 (3.6-5.0) mmol/L Chloride 119.0 H 109 H (98-107) mmol/L Carbon Dioxide 34 H (21-33) mmol/L Anion Gap 8 L (10-20) BUN 34 H (7-21) mg/dL Creatinine 0.8 (0.5-1.4) mg/dL Est GFR ( Amer) > 60 Est GFR (Non-Af Amer) > 60 Random Glucose 109 (70-110) mg/dL Calcium 7.5 L (8.4-10.5) mg/dL Phosphorus 1.5 L (2.5-4.5) mg/dL Magnesium 2.6 H (1.7-2.2) mg/dL Total Bilirubin 0.8 (0.2-1.3) mg/dL AST 70 H (15-59) U/L ALT 72 H (7-56) U/L Alkaline Phosphatase 81 (38-133) U/L Total Protein 5.1 L (5.8-8.3) g/dL Albumin 2.4 L (3.0-4.8) g/dL Globulin 2.7 gm/dL Albumin/Globulin Ratio 0.9 L (1.1-1.8) Arterial Blood Potassium 3.5 L (3.6-5.2) mmol/L Vancomycin Trough (5.0-10.0) ug/mL Laboratory Results - last 24 hr 05/30/16 05/31/16 05/31/16 14:40 05:16 05:30 WBC 31.5 H* D RBC 3.88 Hgb 11.1 L Hct 35.9 L MCV 92.5 MCH 28.6 MCHC 30.9 L RDW 18.9 H Plt Count 180 MPV 10.6 Gran % 93.2 H Lymph % (Auto) 2.8 L [place] % (Auto) 3.7 Eos % (Auto) 0.1 L Baso % (Auto) 0.2 Gran # 29.40 H Lymph # 0.9 L [place] # 1.2 H Eos # 0.0 Baso # 0.05 Neutrophils % (Manual) Band Neutrophils % Lymphocytes % (Manual) Monocytes % (Manual) Platelet Evaluation Hypochromasia pCO2 56 H pO2 87.0 HCO3 33.1 H ABG pH 7.38 ABG Total CO2 34.8 H ABG O2 Saturation 97.6 ABG Base Excess 6.3 H ABG Potassium 3.5 L Glucose 141 H Lactate 1.3 FiO2 55.0 Sodium 147 148.0 Potassium 3.6 Chloride 109 H 119.0 H Carbon Dioxide 34 H Anion Gap 8 L BUN 34 H Creatinine 0.8 Est GFR ( Amer) > 60 Est GFR (Non-Af Amer) > 60 Random Glucose 109 Calcium 7.5 L Phosphorus 1.5 L 2.7 Magnesium 2.6 H 2.6 H Total Bilirubin 0.8 AST 70 H ALT 72 H Alkaline Phosphatase 81 Total Protein 5.1 L Albumin 2.4 L Globulin 2.7 Albumin/Globulin Ratio 0.9 L Arterial Blood Potassium 3.5 L Vancomycin Trough 05/31/16 05/31/16 05:56 10:59 WBC 29.6 H* RBC 3.85 Hgb 11.1 L Hct 36.1 L MCV 93.8 MCH 28.8 MCHC 30.7 L RDW 19.0 H Plt Count 198 MPV 11.1 H Gran % Lymph % (Auto) [place] % (Auto) Eos % (Auto) Baso % (Auto) Gran # Lymph # [place] # Eos # Baso # Neutrophils % (Manual) 90 H Band Neutrophils % 2 Lymphocytes % (Manual) 6 L Monocytes % (Manual) 2 Platelet Evaluation Normal Hypochromasia 1+ pCO2 pO2 HCO3 ABG pH ABG Total CO2 ABG O2 Saturation ABG Base Excess ABG Potassium Glucose Lactate FiO2 Sodium 150 H Potassium 3.7 Chloride 110 H Carbon Dioxide 35 H Anion Gap 9 L BUN 37 H Creatinine 0.7 Est GFR ( Amer) > 60 Est GFR (Non-Af Amer) > 60 Random Glucose 139 H Calcium 7.4 L Phosphorus Magnesium Total Bilirubin 0.6 AST 52 ALT 67 H Alkaline Phosphatase 71 Total Protein 5.0 L Albumin 2.2 L Globulin 2.8 Albumin/Globulin Ratio 0.8 L Arterial Blood Potassium Vancomycin Trough 15.0 H Critical Care Progress Note - Nutrition Nutrition: Nutrition Category Date Time Status NPO Diet [DIET] Diets 05/26/16 Breakfast Ordered Attending/Attestation - Attestation I have personally seen and examined this patient.: Yes I have fully participated in the care of the patient.: Yes I have reviewed all pertinent clinical information: Yes Notes (Text): 05/31/16 11:50 The patient was seen and examined at the bedside. Patient care was discussed with resident Medical records, lab studies, and imaging were reviewed and management issues were discussed and formulated. Last 24H events reviewed. Agree with above treatment plans as outlined in 's note with addition of the following: -hemodynamic monitoring to maintain MAP>65 -mechanical ventilation and o2 supplementation to maintain Spo2 >90 Pao2>60 -monitor for TV 6ml\kg IBW and plateau pressure <30 -ABG in AM reviewed -decreased PEEP to 10 -continue nebs and solumedrol -repeat CXR reviewed -continue broad spectrum Abx as per ID team ; f\u cultures and levels -f\u Bun\Cr and U\o -monitor and replace e-lites -off Nimbex ; remains unresponsive; will get neurology team eval -NPO and aspiration precautions -continue TPN -surgical team following -CT A\P when more stable -DVT \ PUD prophylaxis CCM f\u 39min
--- NOTE | 2016-05-31 10:23 | RAD ---
HISTORY: ett COMPARISON: 05/30/2016 FINDINGS: LUNGS: No change in bilateral infiltrates and vascular congestion PLEURA: No significant pleural effusion identified, no pneumothorax apparent. CARDIOVASCULAR: Normal. OSSEOUS STRUCTURES: No significant abnormalities. VISUALIZED UPPER ABDOMEN: Normal. OTHER FINDINGS: Central lines and tubes unchanged IMPRESSION: No change in bilateral infiltrates and vascular congestion
[2016-05-31] MEDS: MethylPREDNISolone 40 mg Vial IVP SCH ×2 (10:41→21:45)
[2016-05-31] MEDS: Meropenem 1 GM in Dextrose 5% In Water 100 ML IVPB SCH ×2 (14:32→21:44)
--- NOTE | 2016-05-31 14:53 | CP.PCM.PN ---
Subjective - Date & Time of Evaluation Date of Evaluation: 05/31/16 Time of Evaluation: 13:00 - Subjective Subjective: Intubated ventilator dependent, unresponsive, continuos sedation on hold, Morphine/Ativan as needed, off vasopressor agents. Objective - Vital Signs/Intake and Output Vital Signs (last 24 hours): Temp Pulse Resp BP Pulse Ox 97.8 F 95 H 28 H 113/59 L 96 05/31/16 12:00 05/31/16 13:00 05/31/16 13:00 05/31/16 12:00 05/31/16 13:00 Intake and Output: 05/31/16 05/31/16 06:59 18:59 Intake Total 1334 Output Total 825 400 Balance 509 -400 - Medications Medications: Current Medications Acetaminophen (Tylenol 325mg Tab) 650 mg PO Q4H PRN PRN Reason: FEVER, PAIN Albuterol/Ipratropium (Duoneb 3 Mg/0.5 Mg (3 Ml) Ud) 3 ml IH [id number] [facility] Last Admin: 05/31/16 12:59 Dose: 3 ml Furosemide (Lasix) 40 mg IVP Q12 [facility] Last Admin: 05/30/16 09:35 Dose: 40 mg Metronidazole (Flagyl) 100 mls @ 100 mls/hr IVPB Q8 [facility] PRN Reason: Protocol Last Admin: 05/31/16 05:03 Dose: 100 mls/hr Pantoprazole Sodium (Protonix 40mg Ivpb) 100 mls @ 20 mls/hr IVPB .Q5H [facility] Last Admin: 05/31/16 10:53 Dose: 20 mls/hr Midazolam 100 mg/100ml in NS (Midazolam 100 Mg/100ml In Ns) 100 mls @ 1 mls/hr IV .Q24H PRN; Protocol; 1 MG/HR PRN Reason: Pain, moderate (4-7) Last Admin: 05/30/16 00:12 Dose: 7 mls/hr Sodium Bicarbonate 75 meq/ (Dextrose/Sodium Chloride) 1,075 mls @ 100 mls/hr IV .[id number] [facility] Last Admin: 05/27/16 04:47 Dose: 100 mls/hr Norepinephrine Bitartrate 4 mg (/ Dextrose) 254 mls @ 15.24 mls/hr IV .[id number] PRN; Protocol; 4 MCG/MIN PRN Reason: TITRATE PER MD ORDER Last Titration: 05/27/16 19:00 Dose: 0 mcg/min Amiodarone HCl/Dextrose (Nexterone 360 Mg In D5w 200 Ml (Premix)) 200 mls @ 33.333 mls/hr IV .Q6H [facility]; 1 MG/MIN PRN Reason: Protocol Fentanyl Citrate (Fentanyl Citrate/Sodium Chloride 1 Mg/100 Ml) 100 mls @ 7.5 mls/hr IV .[id number] PRN; Protocol; 75 MCG/HR PRN Reason: TITRATE PER MD ORDER Last Admin: 05/30/16 11:19 Dose: 9 mls/hr Cisatracurium Besylate 200 mg/ (Sodium Chloride) 200 mls @ 4.35 mls/hr IV .Q24H PRN; Protocol; 1 MCG/KG/MIN PRN Reason: TITRATE PER MD ORDER Last Admin: 05/30/16 04:17 Dose: 4.35 mls/hr Multivitamins/Vitamin C 10 ml/Chromium/Copper/Manganese/Zinc 1 ml/ Amino Acids 1,011 mls @ 42 mls/hr IV .Q24H [facility] Stop: 05/31/16 17:59 Last Admin: 05/30/16 17:08 Dose: 42 mls/hr Vancomycin HCl (Vancomycin 1gm) 250 mls @ 167 mls/hr IVPB Q12H [facility] PRN Reason: Protocol Last Admin: 05/31/16 05:04 Dose: 167 mls/hr Dextrose (Dextrose 5% In Water 1000 Ml) 1,000 mls @ 100 mls/hr IV .Q10H [facility] Last Admin: 05/31/16 11:16 Dose: 100 mls/hr Meropenem 1 gm/ Dextrose 100 mls @ 100 mls/hr IVPB Q8 [facility] PRN Reason: Protocol Stop: 06/01/16 23:59 Last Admin: 05/31/16 14:32 Dose: 100 mls/hr Lorazepam (Ativan) 2 mg IVP Q3 PRN; Protocol PRN Reason: Agitation Methylprednisolone (Solu-Medrol) 40 mg IVP Q12 [facility] Last Admin: 05/31/16 10:41 Dose: 40 mg Morphine Sulfate (Morphine) 2 mg IVP Q2H PRN PRN Reason: Agitation - Labs Labs: 05/31/16 05:56 05/31/16 05:56 PT 16.7 Seconds (9.9-11.8) H 05/27/16 17:35 INR 1.55 (0.93-1.08) H 05/27/16 17:35 APTT 28.1 Seconds (23.7-30.8) 05/27/16 17:35 - Constitutional Appears: Chronically Ill - Eye Exam Eye Exam: Normal appearance, PERRL - Respiratory Exam Respiratory Exam: NORMAL BREATHING PATTERN Additional comments: intubated vent dependent - Cardiovascular Exam Cardiovascular Exam: REGULAR RHYTHM, +S1, +S2 - GI/Abdominal Exam GI & Abdominal Exam: Soft, Diminished Bowel Sounds - Exam Additional comments: bilateral inguinal hernias - Extremities Exam Additional comments: 2+ edema of both lower extremities - Skin Skin Exam: Dry, Pallor Assessment and Plan - Assessment and Plan (Free Text) Assessment: 85 year old male s/p right hemicolectomy, GI bleed which has resolved, respiratory failure,ventilator dependent, ARDS, sepsis, resolving SBO, bilateral inguinal hernias. Unable to reach Sagar croft and Demetri Potter. Jacque VIVAS has tried to contact [facility] for further contact information and to determine whether the patient had an Advance Directive. Plan: As discussed with cannon pinion adjuster, Dr. Mojica and attending, Dr Pringle, will arrange for ethics committee consult
--- NOTE | 2016-05-31 15:03 | PN ---
DATE: 05/31/2016 This 85-year-old male was examined in ICU bed 1 and his case was reviewed in detail with intensive critical care managing manager, Dr. Albert Mojica. The patient remains intubated. His sedation has been adjusted and he still remains unresponsive. A neurological consult has been called for further evaluation of altered mental status and an ethics committee meeting has been scheduled within 24 hours to discuss his overall clinical situation, code status and the fact that no family members are presently available to help in the management of his medical problems. 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 It is reported as invasive, moderately differentiated, with resected margins negative for cancer, with tumor invading through the muscularis into the subserosa with 16 benign lymph nodes. the patient is rated a T3 node 0 status. There have been no reports of further bright red blood per NG or rectum, and he is having formed small melanotic stools. PHYSICAL EXAMINATION: VITAL SIGNS: Temperature 97.9, respirations 34, pulse 102, and blood pressure 128/63 with a pulse ox of 93%. HEAD: Normocephalic, atraumatic. EYES: No icterus. EARS: Clear. NECK: With intubation apparatus. Neck is supple. HEART: S1, S2. LUNGS: With rhonchi at both bases. ABDOMEN: Soft. There is a vertical incisional scar that is healing with no exudate. VASCULAR: Legs warm to touch. He is wearing SCD anti-embolism stockings. SKIN: Warm, good turgor. PSYCHOLOGICAL: Sedated. NEUROLOGIC: Unresponsive. LABORATORY DATA: White count 29,600, hemoglobin 11.1, hematocrit 36.1, platelets 198,000. Sodium 150, K 3.7, chloride 110, bicarbonate 35, BUN 37, creatinine 0.7, random blood sugar was 139, phosphorus is 2.6. Bilirubin 0.6, AST 52, ALT is down to 67, alkaline phosphatase normal 71, albumin low 2.2. Emesis for blood positive. Chest x-ray shows persistent bilateral infiltrates and pulmonary vascular congestion. IMPRESSION: An 85-year-old male with multiple medical problems as outlined above, admitted to intensive care unit after surgery for a large cecal mass, pathology positive for adenocarcinoma, with surgery complicated by bleeding, presumed at the anastomotic right hemicolectomy site as well as stress gastritis with persistent bilateral inguinal hernias; postoperative small bowel obstruction, resolved; postoperative aspiration pneumonia and acute respiratory distress syndrome, currently on intravenous antibiotics per infectious disease including meropenem, vancomycin and Flagyl; also with hypoxic respiratory failure secondary to aspiration pneumonia and acute respiratory distress syndrome. Now patient is ventilatory dependent on FIO2 of 50 and PEEP of 12, status post hemorrhagic shock, now off pressors, with chronic mental retardation , now unresponsive, on morphine and Ativan p.r.n.; status post congestive heart failure, improved; with persistent leukocytosis, rule out stress leukocytosis, rule out intraabdominal abscess, with CT on hold until patient is more stable on the ventilator; status post massive gastrointestinal bleed that required packed red blood cell transfusion, fresh frozen plasma and platelets; and persistent inguinal hernias that are reducible as needed. The patient's current clinical status is guarded. No family members can be contacted for DNR/DNI. He remains ventilatory dependent but is being attempted at weaning on a daily basis. He is being followed by co-consultants from neurology, gastroenterology, surgery, intensive care, cardiology, infectious disease and members of the ethics committee. He is ordered to have PPN, IV fluids with D5W for his hypernatremia, pulmonary toiletry, IV antibiotics, IV Protonix drip. He has been scheduled for a head CT without contrast because of altered mental status. He remains on ventilatory support. He is scheduled for an EEG. Palliative care consultation has been with nurse, Christy Harris, which whom I have discussed this case in detail. He remains on fall and aspiration precautions. He is wearing anti-embolism stockings. He is on a specialty mattress. His overall prognosis is poor and guarded. Greater than 1 hour was spent in the care, coordination of care, review of care and discussion of care for this critically ill patient today whose overall prognosis is indeed poor. No family members can be reached to date despite multiple attempts by myself and the co-consultants, hospital staff, gearcase assembler and social workers. Codi Pringle MD cc: [phone] TT: 05/31/2016 15:02:48 Confirmation # [id number] Dictation # [id number] mn MTDD
--- NOTE | 2016-05-31 15:12 | CP.PCM.PN ---
Subjective - Date & Time of Evaluation Date of Evaluation: 05/31/16 Time of Evaluation: 13:45 - Subjective Subjective: Infectious Disease Follow Up: May 31, 2016 85 yo male with initial presentation for abdominal pain and abnormal CT scan sent [facility] (I [facility] [place] 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 Currently the patient appears comfortable. He is unable to give any relevant information due to a severe developmental delay. Patient is currently post-operative day #9 and has been displaying increased leukocytosis since the surgery. Patient himself is intubated and ventilated. He was brought to MICU and remain here since. He required intubation and ventilation. Signs of aspiration pneumonia. On meropenem for now. Persistent leukocytosis. Patient in critical condition. Right IJ placed by MICU team. Case discussed with Dr. Pringle and Dr. Molina. The patient is on Meropenem and Flagyl for antibiotic coverage. Leukocytosis remains elevated at 29.6 today. Patient remains in critical condition but seems to have no further deterioration. Patient did receive 6 U of PRBCs, 4 U of FFP, and 1 U of platelets during the first 24 hours in ICU. Surgery has asked for a C. diff study which is negative. Melena and blood clots from rectum have slowed down considerably. Patient has an extremely poor prognosis. Currently off pressors and sedation. Objective - Vital Signs/Intake and Output Vital Signs (last 24 hours): Temp Pulse Resp BP Pulse Ox 97.8 F 95 H 28 H 113/59 L 96 05/31/16 12:00 05/31/16 13:00 05/31/16 13:00 05/31/16 12:00 05/31/16 13:00 Intake and Output: 05/31/16 05/31/16 06:59 18:59 Intake Total 1334 Output Total 825 400 Balance 509 -400 - Medications Medications: Current Medications Acetaminophen (Tylenol 325mg Tab) 650 mg PO Q4H PRN PRN Reason: FEVER, PAIN Albuterol/Ipratropium (Duoneb 3 Mg/0.5 Mg (3 Ml) Ud) 3 ml IH [id number] [facility] Last Admin: 05/31/16 12:59 Dose: 3 ml Furosemide (Lasix) 40 mg IVP Q12 [facility] Last Admin: 05/30/16 09:35 Dose: 40 mg Metronidazole (Flagyl) 100 mls @ 100 mls/hr IVPB Q8 [facility] PRN Reason: Protocol Last Admin: 05/31/16 05:03 Dose: 100 mls/hr Pantoprazole Sodium (Protonix 40mg Ivpb) 100 mls @ 20 mls/hr IVPB .Q5H [facility] Last Admin: 05/31/16 10:53 Dose: 20 mls/hr Midazolam 100 mg/100ml in NS (Midazolam 100 Mg/100ml In Ns) 100 mls @ 1 mls/hr IV .Q24H PRN; Protocol; 1 MG/HR PRN Reason: Pain, moderate (4-7) Last Admin: 05/30/16 00:12 Dose: 7 mls/hr Sodium Bicarbonate 75 meq/ (Dextrose/Sodium Chloride) 1,075 mls @ 100 mls/hr IV .[id number] [facility] Last Admin: 05/27/16 04:47 Dose: 100 mls/hr Norepinephrine Bitartrate 4 mg (/ Dextrose) 254 mls @ 15.24 mls/hr IV .[id number] PRN; Protocol; 4 MCG/MIN PRN Reason: TITRATE PER MD ORDER Last Titration: 05/27/16 19:00 Dose: 0 mcg/min Amiodarone HCl/Dextrose (Nexterone 360 Mg In D5w 200 Ml (Premix)) 200 mls @ 33.333 mls/hr IV .Q6H [facility]; 1 MG/MIN PRN Reason: Protocol Fentanyl Citrate (Fentanyl Citrate/Sodium Chloride 1 Mg/100 Ml) 100 mls @ 7.5 mls/hr IV .[id number] PRN; Protocol; 75 MCG/HR PRN Reason: TITRATE PER MD ORDER Last Admin: 05/30/16 11:19 Dose: 9 mls/hr Cisatracurium Besylate 200 mg/ (Sodium Chloride) 200 mls @ 4.35 mls/hr IV .Q24H PRN; Protocol; 1 MCG/KG/MIN PRN Reason: TITRATE PER MD ORDER Last Admin: 05/30/16 04:17 Dose: 4.35 mls/hr Multivitamins/Vitamin C 10 ml/Chromium/Copper/Manganese/Zinc 1 ml/ Amino Acids 1,011 mls @ 42 mls/hr IV .Q24H [facility] Stop: 05/31/16 17:59 Last Admin: 05/30/16 17:08 Dose: 42 mls/hr Vancomycin HCl (Vancomycin 1gm) 250 mls @ 167 mls/hr IVPB Q12H [facility] PRN Reason: Protocol Last Admin: 05/31/16 05:04 Dose: 167 mls/hr Dextrose (Dextrose 5% In Water 1000 Ml) 1,000 mls @ 100 mls/hr IV .Q10H [facility] Last Admin: 05/31/16 11:16 Dose: 100 mls/hr Meropenem 1 gm/ Dextrose 100 mls @ 100 mls/hr IVPB Q8 [facility] PRN Reason: Protocol Stop: 06/01/16 23:59 Last Admin: 05/31/16 14:32 Dose: 100 mls/hr Lorazepam (Ativan) 2 mg IVP Q3 PRN; Protocol PRN Reason: Agitation Methylprednisolone (Solu-Medrol) 40 mg IVP Q12 [facility] Last Admin: 05/31/16 10:41 Dose: 40 mg Morphine Sulfate (Morphine) 2 mg IVP Q2H PRN PRN Reason: Agitation - Labs Labs: 05/31/16 05:56 05/31/16 05:56 PT 16.7 Seconds (9.9-11.8) H 05/27/16 17:35 INR 1.55 (0.93-1.08) H 05/27/16 17:35 APTT 28.1 Seconds (23.7-30.8) 05/27/16 17:35 - Constitutional Appears: Chronically Ill - Head Exam Additional comments: intubated and ventilated - Eye Exam Eye Exam: EOMI, PERRL Pupil Exam: NORMAL ACCOMODATION, PERRL - ENT Exam ENT Exam: Mucous Membranes Moist, Normal External Ear Exam, TM's Normal Bilaterally Additional comments: intubated and ventilated - Neck Exam Additional comments: intubated and ventilated - Respiratory Exam Respiratory Exam: Decreased Breath Sounds. absent: Rales, Rhonchi, Wheezes Additional comments: intubated and ventilated - Cardiovascular Exam Cardiovascular Exam: REGULAR RHYTHM, RRR, +S1, +S2 - GI/Abdominal Exam GI & Abdominal Exam: Soft, Normal Bowel Sounds Additional comments: mild distension - Extremities Exam Additional comments: thin and cachetic. edema +1-2 of the bilateral upper extremities. Scrotal swelling. mild edema of the lower extremities. - Neurological Exam Additional comments: Intubated, ventilated, and poorly responsive. - Psychiatric Exam Additional comments: Intubated, ventilated, and poorly responsive. Assessment and Plan - Assessment and Plan (Free Text) Assessment: 85 yo male with cecal mass and bilateral hernia had exploratory laparotomy with right hemicolectomy. The patient is unable to give any significant information when speaking with him. He is not complaining of pain. The patient leukocytosis remains elevated at 29.6. There is a mild left shift to the leukocytosis. Supportive care. Silva cultures sent. Had Proteus in urine culture over a week ago but more recent urine culture is negative for growth. No growth in recent cultures so far. C. Diff studies negative. Currently on Meropenem and Flagyl for antibiotic coverage. Supportive care. CT Scan results noted with small bowel obstruction proximal to the right hernia sac containing dilated loops of small bowel. Findings consistent with incarceration and secondary proximal bowel obstruction. GI bleeding scan showing active bleed on both sides of the pelvis probably within the sigmoid colon. Surgery aware of findings - no intervention at this time. Remains in MICU and required intubation and ventilation. On antibiotics of Vancomycin, Meropenem, and Flagyl currently. Awaiting repeat cultures - negative to date at 5+ days. No further surgical interventions. Possible aspiration pneumonia. Bleed at anastomotic site. Patient remains unstable. CT when patient stable enough to do so. He is currently off pressors and sedation. Repeat Abdominal X-ray shows resolvement of SBO portion of disease. Patient remains critically ill and has an extremely poor prognosis. Thank you for allowing me to participate in the care of the patient, we will follow with you.
[2016-05-31] MEDS ORDERED: Folic Acid 1 MG, Thiamine 100 MG, Multivitamin (MVI) 10 ML in Dextrose 5% In Water 1,00... IV SCH (18:15)
--- NOTE | 2016-05-31 20:45 | PN ---
DATE: 05/31/2016 SUBJECTIVE: This patient still remains on vent, on high PEEP, considered high risk to go down for a CAT scan. PHYSICAL EXAMINATION: VITAL SIGNS: He remains afebrile, blood pressure 114/58, pulse 91, respirations 29, O2 saturation 97 . HEENT: Atraumatic, anicteric. NECK: Supple. HEART: S1, S2 heard. LUNGS: Bilateral air entry present present. ABDOMEN: Soft. Surgical dressing present. The patient has a right scrotal hernia. EXTREMITIES: Mild edema present. LABORATORY DATA: White cell count remains elevated at 29.6, hemoglobin 11.1, hematocrit 36.1, platel ets 198. Chemistry showed total bilirubin 0.6, AST 52, ALT 67. IMPRESSION: This is an 85-year-old patient status post right hemicolectomy for a cecal mass, history of inguinal hernia, postoperative course complicated with GI bleeding, possibly from the anastomotic area, sepsis, small-bowel obstruction. The patient is status post cardiac arrest, status post resus citation, on vent with high PEEP. RECOMMENDATIONS: Would recommend: 1. Consider CT of the abdomen and pelvis with p.o. contrast, considering the feeding. 2. Orogastric tube, has history of pharyngeal pouch, orogastric tube. No active bleeding noticed no w. 3. Sepsis, lung infiltrate, rule out intraabdominal source, awaiting for a CAT scan. Continue the a ntibiotics as per ID. 4. We will continue to closely follow up his care and suggest further management based on the clinic al course. Ann Luna MD cc: [phone] TT: 05/31/2016 20:44:16 Confirmation # [id number] Dictation # [id number] cortez
[2016-05-31] MEDS: Insulin Lispro (humaLOG) MEDIUM Coverage SC SCH (21:38)
[2016-05-31] MEDS ORDERED: Insulin Lispro (humaLOG) LOW Coverage SC SCH (22:00)
[2016-06-01 01:29] LABS: VENOUS BLOOD GAS BASE EXCESS 6.9 mmol/L (0.0-2.0); VENOUS BLOOD PH 7.41 (7.32-7.43)
[2016-06-01 01:49] LABS: PH,URINE 6.5 (4.7-8.0); URINE BILIRUBIN NEGATIVE (NEGATIVE); URINE BLOOD TRACE-INTACT (NEGATIVE); URINE GLUCOSE (UA) NEGATIVE (NEGATIVE); URINE KETONE NEGATIVE (NEGATIVE); URINE LEUKOCYTE ESTERASE NEGATIVE Leu/uL (NEGATIVE); URINE PROTEIN TRACE mg/dL (<30 mg/dL); URINE UROBILINOGEN 0.2 E.U./dL (<1 E.U./dL)
[2016-06-01 02:00] LABS: URINE APPEARANCE SLIGHT-CLOUDY (CLEAR); URINE COLOR YELLOW (YELLOW)
[2016-06-01] MEDS: Pantoprazole 40mg/100ml IVPB 100 ML IVPB SCH ×2 (02:01→07:00)
[2016-06-01 02:05] LABS: URINE WBC 0 - 2 /hpf (0-6)
[2016-06-01 02:06] LABS: URINE EPITHELIAL CELLS 0 - 2 /hpf (0-5)
[2016-06-01] MEDS: Albuterol-Ipratrop 3 mg / 0.5 (3 ml) UD IH SCH ×4 (02:45→21:22)
[2016-06-01] MEDS: Vancomycin 1gm in NS 250ml 250 ML IVPB SCH ×2 (05:04→17:34)
[2016-06-01] MEDS: Meropenem 1 GM in Dextrose 5% In Water 100 ML IVPB SCH ×3 (05:05→22:13)
[2016-06-01] MEDS: metroNIDAZOLE IV 500 mg/100 ml 100 ML IVPB SCH ×3 (05:06→22:13)
[2016-06-01] MEDS ORDERED: Folic Acid 1 MG, Thiamine 100 MG, Multivitamin (MVI) 10 ML in Dextrose 5% In Water 1,00... IV SCH ×3 (05:08→09:26)
[2016-06-01] MEDS ORDERED: Potassium Chl 20mEq & D5W 1,000 ML IV SCH (05:30)
[2016-06-01 07:12] LABS: HEMATOCRIT 38.7 % (42.0-52.0); MEAN CELL VOLUME 93.5 fL (80.0-105.0); MEAN CORPUSCULAR HEMOGLOBIN 28.7 pg (25.0-35.0); MEAN CORPUSCULAR HGB CONC 30.7 g/dl (31.0-37.0); MEAN PLATELET VOLUME 11.6 fl (7.0-11.0); PLATELET COUNT 241 10^3/uL (120.0-450.0); RED CELL DISTRIBUTION WIDTH 18.9 % (11.5-14.5)
[2016-06-01 07:24] LABS: ALB/GLOB RATIO 0.8 (1.1-1.8); ALKALINE PHOSPHATASE 83 U/L (38-133); ALT/SGPT 56 U/L (7-56); AST/SGOT 54 U/L (15-59); BILIRUBIN,TOTAL 0.4 mg/dL (0.2-1.3); BLOOD UREA NITROGEN 35 mg/dL (7-21); CALCIUM 7.4 mg/dL (8.4-10.5); CARBON DIOXIDE 35 mmol/L (21-33); CHLORIDE 106 mmol/L (95-110); GFR AFRICAN-AMERICAN > 60; GLUCOSE,RANDOM 132 mg/dL (70-110); SODIUM 150 mmol/L (132-148); TOTAL PROTEIN 5.3 g/dL (5.8-8.3)
[2016-06-01 07:28] LABS: POTASSIUM 3.2 mmol/L (3.6-5.0)
[2016-06-01] MEDS ORDERED: Potassium Chloride 10 mEq 100 ML IVPB ONE (07:42)
[2016-06-01] MEDS: Insulin Lispro (humaLOG) MEDIUM Coverage SC SCH ×4 (08:00→21:58)
[2016-06-01 08:03] LABS: WHITE BLOOD COUNT 38.9 10^3/ul (4.5-11.0)
[2016-06-01 08:29] LABS: BASO # 0.04 K/mm3 (0.0-2.0); BASO % 0.1 % (0.0-3.0); GRAN # 34.85 (1.4-6.5); GRAN % 91.8 % (50.0-68.0); LYMPH # 1.4 (1.2-3.4); LYMPH % 3.7 % (22.0-35.0); MONO # 1.7 (0.1-0.6); MONO % 4.4 % (1.0-6.0)
[2016-06-01 08:30] LABS: ADD MANUAL DIFF? NO
--- NOTE | 2016-06-01 08:31 | CP.PCM.PN ---
Subjective - Date & Time of Evaluation Date of Evaluation: 06/01/16 Time of Evaluation: 08:21 - Subjective Subjective: Surgery: Dr. Peterson Pt seen and examined. Per nursing, pt had black BMs overnight. Otherwise no acute events, pt remains intubated. PEEP down to 8. Objective - Vital Signs/Intake and Output Vital Signs (last 24 hours): Temp Pulse Resp BP Pulse Ox 97.9 F 116 H 29 H 144/68 91 L 06/01/16 04:00 06/01/16 06:00 05/31/16 18:00 06/01/16 06:00 06/01/16 06:00 Intake and Output: 06/01/16 06/01/16 06:59 18:59 Intake Total 1420 Output Total 800 Balance 620 - Medications Medications: Current Medications Acetaminophen (Tylenol 325mg Tab) 650 mg PO Q4H PRN PRN Reason: FEVER, PAIN Albuterol/Ipratropium (Duoneb 3 Mg/0.5 Mg (3 Ml) Ud) 3 ml IH [id number] [facility] Last Admin: 06/01/16 07:29 Dose: 3 ml Metronidazole (Flagyl) 100 mls @ 100 mls/hr IVPB Q8 [facility] PRN Reason: Protocol Last Admin: 06/01/16 05:06 Dose: 100 mls/hr Pantoprazole Sodium (Protonix 40mg Ivpb) 100 mls @ 20 mls/hr IVPB .Q5H [facility] Last Admin: 06/01/16 07:00 Dose: 20 mls/hr Vancomycin HCl (Vancomycin 1gm) 250 mls @ 167 mls/hr IVPB Q12H [facility] PRN Reason: Protocol Last Admin: 06/01/16 05:04 Dose: 167 mls/hr Meropenem 1 gm/ Dextrose 100 mls @ 100 mls/hr IVPB Q8 [facility] PRN Reason: Protocol Stop: 06/01/16 23:59 Last Admin: 06/01/16 05:05 Dose: 100 mls/hr Multivitamins/Vitamin C 10 ml/Chromium/Copper/Manganese/Zinc 1 ml/ Amino Acids 1,011 mls @ 42 mls/hr IV .Q24H [facility] Folic Acid 1 mg/ Thiamine HCl 100 mg/ Multivitamins/Vitamin C 10 ml/ Dextrose 1 ,011.2 mls @ 40 mls/hr IV .Q24H [facility] Stop: 06/01/16 18:00 Last Admin: 06/01/16 05:15 Dose: 40 mls/hr Potassium Chloride/Dextrose (Potassium Chl 20 Meq In D5w) 1,000 mls @ 60 mls/ hr IV .[id number] [facility] Last Admin: 06/01/16 05:59 Dose: 60 mls/hr Potassium Chloride (Potassium Chloride 10 Meq/100 Ml) 100 mls @ 100 mls/hr IVPB ONCE ONE Stop: 06/01/16 08:41 Last Admin: 06/01/16 08:06 Dose: 100 mls/hr Insulin Human Lispro (Humalog Med) 0 units SC ACHS [facility] PRN Reason: Protocol Last Admin: 06/01/16 08:00 Dose: Not Given Lorazepam (Ativan) 2 mg IVP Q3 PRN; Protocol PRN Reason: Agitation Methylprednisolone (Solu-Medrol) 40 mg IVP Q12 [facility] Last Admin: 05/31/16 21:45 Dose: 40 mg Morphine Sulfate (Morphine) 2 mg IVP Q2H PRN PRN Reason: Agitation - Labs Labs: 06/01/16 07:00 06/01/16 07:00 PT 16.7 Seconds (9.9-11.8) H 05/27/16 17:35 INR 1.55 (0.93-1.08) H 05/27/16 17:35 APTT 28.1 Seconds (23.7-30.8) 05/27/16 17:35 - Constitutional Appears: No Acute Distress, Chronically Ill - Head Exam Head Exam: ATRAUMATIC, NORMOCEPHALIC - ENT Exam ENT Exam: Mucous Membranes Moist Additional comments: OGT - Respiratory Exam Additional comments: intubated - GI/Abdominal Exam GI & Abdominal Exam: Soft. absent: Distended, Firm, Guarding, Rigid, Tenderness Additional comments: Midline incision, C/D/I, large B/L inguinal hernias - Extremities Exam Additional comments: B/L UE and LE edema - Neurological Exam Neurological Exam: absent: Alert, Awake Assessment and Plan - Assessment and Plan (Free Text) Assessment: 85M w. B/L inguinal hernias and cecal mass, s/p ex-lap w. R hemicolectomy, POD# 10, complicated by GI bleed which is resolved -GI bleed likely from anastomosis site -H/H stable, continue to monitor, transfuse PRN -minimal OGT output -leukocytosis is worsening -Per yesterdays discussion w. strap buckler, pt would be stable for CT when PEEP was down to 8, PEEP is 8 today, recommend CT of chest/abd/pelvis w. PO contrast -c/w abx -several attempts have been made through out hospital to contact Servando castellano [phone], these attempts have been unsuccessful, per review of charts, ethic comittee will be contacted -will continue to follow closely -d/w attending Mily PGY2
[2016-06-01] MEDS: MethylPREDNISolone 40 mg Vial IVP SCH ×2 (09:04→10:05)
[2016-06-01] MEDS ORDERED: Barium Sulfate Susp 2.1% w/v, 2.0% w/w 450 mL Bottle PO ONE (09:33)
[2016-06-01 09:35] LABS: MAGNESIUM 2.7 mg/dL (1.7-2.2); PHOSPHOROUS 2.8 mg/dL (2.5-4.5)
--- NOTE | 2016-06-01 09:46 | PN ---
DATE: 06/01/2016 This 85-year-old male remains intubated in ICU bed 1. His case was reviewed in detail with Dr. Albert Mojica, the contracts attorney. The patient remains with respiratory failure on an FiO2 of 50% and PEEP of 8. Attempts at weaning him have been unsuccessful and further attempts to lower his PEEP have been met with desaturation. The patient is being followed postoperatively by neurology because of unresponsiveness after tapering of his sedatives and he is scheduled for a CAT scan of the head, chest, abdomen and pelvis when clinically stable. An EEG has yet to be done. The patient had some melenic stool this morning. He remains in multisystem failure. He is ventilatory dependent and still no relatives have returned any phone calls to discuss code status and DNR. PHYSICAL EXAMINATION: VITAL SIGNS: Temperature 97.9, pulse 101, blood pressure 144/79, O2 sat 91%. I 's and O's thus far today 1420 in, 800 out with a positive fluid balance of 620. HEAD: Normocephalic, atraumatic. EYES: No icterus. NECK: Supple. He is intubated. HEART: S1, S2, no pathological rubs, murmurs or gallops. LUNGS: Rhonchi bilaterally. No wheezing. ABDOMEN: Soft, nontender, no palpable organomegaly. EXTREMITIES: He is wearing anti-embolism stockings and SCDs. There is no clubbing, cyanosis, or edema. SKIN: Without rash. PSYCHOLOGIC: Sedated. VASCULAR: Legs warm to touch. NEUROLOGIC: Unresponsive. LABORATORIES: White count 38,900, hemoglobin 11.9, hematocrit 38.7, platelets 241,000. Chemistry: Sodium 150, K 3.2, chloride 106, bicarbonate 35, BUN 35, creatinine 0.6, random blood sugar is 132. Phosphorus was 2.7, magnesium was 2.6, bilirubin 0.4, AST 54, ALT 56, alk phos 83, albumin 2.4, low. IMPRESSION: An 85-year-old male status post right hemicolectomy for cecal adenocarcinoma removal with postoperative course complication of gastrointestinal bleeding secondary to probable bleeding at the right hemicolectomy anastomotic site as well as stress gastritis, also complicated by aspiration pneumonia and adult respiratory distress syndrome with postoperative small bowel obstruction, resolved, persistent bilateral inguinal hernias, IV sepsis, respiratory failure, ventilatory dependency, status post hemorrhagic shock, status post shock liver, now off pressors and remaining unresponsive with congestive heart failure secondary to fluid resuscitation, persistent leukocytosis in the setting of aspiration pneumonia, acute respiratory distress syndrome, sepsis and steroids, history of chronic mental retardation and now with no family members reachable to discuss further code status for this patient at the present time. PLAN: As discussed with Dr. Mojica, the contracts attorney, the patient will remain on D5W and peripheral alimentation while monitoring serial labs. He is receiving IV potassium replacement and is receiving pulmonary toiletry of DuoNeb nebulizers and antibiotics including meropenem, Flagyl and vancomycin. He will continue on Solu-Medrol while attempting to wean him off the vent. If this is unsuccessful, he will need to be considered for a tracheostomy. He continues on an IV Protonix drip. When stable he will be scheduled for head, chest, abdomen and pelvic CT. EEG is pending. He remains n.p.o. He is having his blood sugar checked and insulin administered as needed. He remains on fall and aspiration precautions. He is wearing sequential compression device anti- embolism stockings. He cannot be anticoagulated because of recent major gastrointestinal bleeding. He is being treated supportively and aggressively in the absence of a do not resuscitate code status and as discussed with Dr. Mojica, consideration will need to be given for possible tracheostomy and ventilator rehabilitation if patient cannot be weaned off the ventilator. Repeat blood, urine, stool and stool Clostridium difficile toxins are pending and a stool for Clostridium difficile antigen and toxin dated 05/28 were indeed negative. The patient's overall prognosis is extremely poor and he will be treated in an aggressive and compassionate way. Approximately 60 minutes was spent in the care, coordination of care, discussion of care with the ethics committee this morning as well as his coconsultants. His overall prognosis remains poor. Codi Pringle MD cc: [id number] TT: 06/01/2016 09:45:10 Confirmation # [id number] Dictation # [id number] en MTDD
[2016-06-01] MEDS: Potassium Chloride 20 mEq 100 ML IVPB SCH ×2 (09:49→12:15)
--- NOTE | 2016-06-01 10:38 | CON ---
DATE: 06/01/2016 REASON FOR CONSULTATION: The patient is not waking up off sedation. HISTORY OF PRESENTING ILLNESS: The patient is an 85-year-old male who has been asked for neurologic evaluation as patient is not waking up. The patient was admitted to the hospital on 05/16/2016 from [facility] after he was noted to have ileocecal mass. The patient is status post right hemicolectom y for cecal mass. Postoperative course was complicated by GI bleeding, possibly from the anastomotic area and sepsis. The patient was intubated and was kept on sedation. Now patient is off sedation f or the last 2 days and he is not waking up. The patient apparently also requiring high PEEP. The pa tient unable to give history. History is mainly from the chart. PAST MEDICAL HISTORY: Includes anemia. CURRENT MEDICATIONS: Include Flagyl, folic acid, insulin, meropenem, morphine, potassium, Protonix, Solu-Medrol, vancomycin and Ativan 2 mg p.r.n. ALLERGIES: No known drug allergy. SOCIAL HISTORY: The patient is a long term resident. He is a former smoker. Does not use any al cohol or illicit drugs. FAMILY HISTORY: Unknown. PHYSICAL EXAMINATION: GENERAL: The patient is an elderly male, lying on the bed, on a ventilator, in no acute distress. VITAL SIGNS: His blood pressure is 144/76, heart rate is 115 per minute, he is breathing at a rate o f 30 per minute, his temperature is 96.2 degrees Fahrenheit. HEENT: Head is normocephalic, atraumatic. NECK: Supple. There are no carotid bruits. LUNGS: Clear. CARDIOVASCULAR: S1 and S2 audible with no murmurs. ABDOMEN: Soft and nontender. Bowel sounds are present. NEUROLOGIC EXAMINATION: MENTAL STATUS: The patient is not responding to verbal or noxious painful stimuli. He does not foll ow any commands. He is off sedation. CRANIAL NERVES: Pupils are 4 mm bilaterally, reactive to light. There is positive doll's eye moveme nt. There is positive corneal, however, it is very weak. He has minimal gag. SENSORY: He does not withdraw any extremities to noxious painful stimuli. MOTOR: Reflexes absent. Plantars no response. GAIT: Untestable. LABORATORIES: Reviewed, shows WBC of 38.9, hemoglobin of 11.9, hematocrit of 38.7 and platelets of 2 41. Sodium is 150, potassium is 3.2, chloride of 106, carbon dioxide content of 35, BUN of 35, creat inine of 0.6, and glucose of 132. IMPRESSION: 1. Altered mental status, which is secondary to toxic metabolic encephalopathy. 2. Sepsis. 3. Hypernatremia. 4. Respiratory failure. 5. Status post hemicolectomy. RECOMMENDATIONS: 1. The patient to have a CT scan of the head without contrast. 2. The patient also to have an electroencephalogram. 3. The patient to be continued on IV antibiotics. 4. The patient to have ventilatory support. 5. Please continue other treatment and supportive care. 6. The patient's prognosis appears to be guarded. Thank you for the opportunity to participate in the care of this patient. Sofía Zepeda MD cc: [id number] TT: 06/01/2016 10:38:05 Confirmation # [id number] Dictation # [id number] en
--- NOTE | 2016-06-01 11:17 | PN ---
DATE: 06/01/2016 Seen and examined at the bedside earlier today in ICU. The patient remains intubated, reporting to fredrick landa when moved. No reports of any further bleeding. VITAL SIGNS: Temperature 97.9, blood pressure 144/76, pulse is 115, respirations on ventilator. LABORATORY DATA: WBC is 38.9, hemoglobin is 11.9 and 38.7, platelets of 241. H and H have been stea dy. Chem: Sodium 150, K is 3.2, BUN 35, creatinine 0.6. LFTs are within normal limits. PHYSICAL EXAMINATION: HEENT: Sclerae are anicteric. NECK: Supple. The patient is intubated. CARDIAC: S1, S2. LUNGS: With decreased breath sounds. ABDOMEN: Soft. Surgical incision is dry and intact. His right scrotal hernia appears more edematou s than before. EXTREMITIES: Positive mild bilateral edema. ASSESSMENT: This is an 85-year-old patient with a history of inguinal hernia and cecal mass. He is status post right hemicolectomy with postoperative complications of gastrointestinal bleeding which m ay be from the anastomotic area. The patient with small bowel obstruction, sepsis, also status post cardiac arrest, remains on ventilator with high PEEP. PLAN: The patient's CT scan abdomen with oral contrast was recommended. The patient will go when op timal. The patient is reported to desaturate with any movement, so he is not stable right now. He h as orogastric tube. History of pharyngeal pouch now. The patient status post GI bleed, has no activ e bleeding now. H and H are steady. Continue to monitor that. Continue IV antibiotics. He is on m eropenem and Flagyl. He is also on PPN. Continue GI prophylaxis. He is on Protonix q. 12. He is a lso getting vancomycin IV. Follow up stool for C. difficile. Continue surgical followup, ID. The p abbi was seen and case discussed with Dr. 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 Resection margins are negative for carcinoma/dysplasi a, benign appendix and terminal ileum. Henrietta KIRBY cc: [id number] TT: 06/01/2016 11:17:12 Confirmation # [id number] Dictation # [id number]
--- NOTE | 2016-06-01 11:46 | CP.CCUPN ---
<Roger Britton - Last Filed: 06/01/16 11:38> CCU Subjective - Physician Review Subjective (Free Text): Pt s&e w ICU attending. Pt is off sedation, Morphine, Ativan PRN. Pt is intubated at fio2 55, 6, 20, 350. On PPN. Regular BM. No blood. Pt is unarousable. Planned for noonan CT and EEG today. CCU Objective - Vital Signs / Intake & Output Vital Signs (Last 4 hours): Vital Signs Pulse 06/01/16 08:00 115 H Intake and Output (Last 8hrs): Intake & Output 05/31/16 06/01/16 06/01/16 22:59 06:59 14:59 Intake Total 860 1420 Output Total 601 800 Balance 259 620 Weight 159 lb 1.6 oz Intake: IV 1420 Right Internal Jugular 1420 TPN/PPN 420 Other 440 Output: Urine 600 800 2-way Urethral 600 800 Stool 1 Other: Voiding Method Indwelling Catheter Indwelling Catheter # Bowel Movements 2 - Physical Exam Head: Positive for: Atraumatic, Normocephalic. Negative for: Ecchymosis Pupils: Positive for: PERRL Conjunctiva: Negative for: Injected, Icteric Mouth: Positive for: Moist Mucous Membranes Pharnyx: Negative for: ERYTHEMA Nose (Internal): Positive for: Normal Inspection, No Active Bleeding Respiratory/Chest: Positive for: Respiratory Distress, Other (Intubated. ). Negative for: Tachypneic Cardiovascular: Positive for: Regular Rate and Rhythm, Normal S1, S2 Abdomen: Positive for: Hernias. Negative for: Tenderness, Distention, Peritoneal Signs, Rebound, Guarding Genitourinary Male: Positive for: Testicle Tenderness, Hernias, Testicle Swelling, Other (Large [id number] R inguinal hernia: irreducible. 10x5cm L inguinal hernia : irreducible.). Negative for: Normal External Genitalia Upper Extremity: Positive for: Edema, Swelling. Negative for: Erythema Lower Extremity: Positive for: Edema, Swelling. Negative for: Cyanosis Skin: Positive for: Warm, Dry Psychiatric: Negative for: Alert, Oriented x 3, Normal Insight - Medications Active Medications: Active Medications Generic Name Dose Route Start Last Admin Trade Name Freq PRN Reason Stop Dose Admin Acetaminophen 650 mg 05/17/16 08:33 Tylenol 325mg Tab PO Q4H PRN FEVER, PAIN Albuterol/Ipratropium 3 ml 05/30/16 14:00 06/01/16 07:29 Duoneb 3 Mg/0.5 Mg (3 Ml) Ud IH 3 ml [id number] SHARIF Administration Metronidazole 100 mls @ 100 mls/hr 05/24/16 08:15 06/01/16 05:06 Flagyl IVPB 100 mls/hr Q8 SHARIF Administration Protocol Vancomycin HCl 250 mls @ 167 mls/hr 05/28/16 18:00 06/01/16 05:04 Vancomycin 1gm IVPB 167 mls/hr Q12H SHARIF Administration Protocol Meropenem 1 gm/ Dextrose 100 mls @ 100 mls/hr 05/31/16 13:36 06/01/16 05:05 IVPB 06/01/16 23:59 100 mls/hr Q8 SHARIF Administration Protocol Multivitamins/Vitamin C 10 ml/ 1,011 mls @ 42 mls/hr 06/01/16 18:00 Chromium/Copper/Manganese/ IV 06/04/16 17:59 Zinc 1 ml/ Amino Acids .Q24H SHARIF Folic Acid 1 mg/ Thiamine HCl 1,011.2 mls @ 75 mls/hr 06/01/16 09:26 06/01/16 09:49 100 mg/ Multivitamins/Vitamin IV 06/01/16 18:00 75 mls/hr C 10 ml/ Dextrose .[id number] SHARIF Administration Potassium Chloride 100 mls @ 50 mls/hr 06/01/16 09:30 06/01/16 09:49 Potassium Chloride 20 Meq/100 Ml IVPB 06/01/16 13:29 50 mls/hr Q2H SHARIF Administration Insulin Human Lispro 0 units 05/31/16 22:00 06/01/16 08:00 Humalog Med SC Not Given ACHS SHARIF Protocol Lorazepam 2 mg 05/30/16 17:01 Ativan IVP Q3 PRN Agitation Protocol Methylprednisolone 40 mg 06/01/16 10:00 06/01/16 10:05 Solu-Medrol IVP Not Given DAILY SHARIF Morphine Sulfate 2 mg 05/30/16 17:00 Morphine IVP Q2H PRN Agitation Pantoprazole Sodium 40 mg 06/01/16 10:00 06/01/16 09:50 Protonix Inj IVP 40 mg Q12 SHARIF Administration - Patient Studies Lab Studies: Microbiology Studies 05/31/16 09:30 Gram Stain - Final Sputum Sputum Culture - Preliminary Lab Studies 06/01/16 06/01/16 06/01/16 Range/Units 07:00 06:00 01:25 WBC 38.9 H* D (4.5-11.0) 10^3/ul RBC 4.14 (3.5-6.1) 10^6/uL Hgb 11.9 L (14.0-18.0) gm/dL Hct 38.7 L (42.0-52.0) % MCV 93.5 (80.0-105.0) fL MCH 28.7 (25.0-35.0) pg MCHC 30.7 L (31.0-37.0) g/dl RDW 18.9 H (11.5-14.5) % Plt Count 241 (120.0-450.0) 10^3/uL MPV 11.6 H (7.0-11.0) fl Gran % 91.8 H (50.0-68.0) % Lymph % (Auto) 3.7 L (22.0-35.0) % [place] % (Auto) 4.4 (1.0-6.0) % Eos % (Auto) 0.0 L (1.5-5.0) % Baso % (Auto) 0.1 (0.0-3.0) % Gran # 34.85 H (1.4-6.5) Lymph # 1.4 (1.2-3.4) [place] # 1.7 H (0.1-0.6) Eos # 0.0 (0.0-0.7) Baso # 0.04 (0.0-2.0) K/mm3 pO2 (30-55) mm/Hg VBG pH (7.32-7.43) VBG pCO2 (40-60) VBG HCO3 (21-28) mmol/l VBG Total CO2 (22-28) mmol.L VBG O2 Sat (Calc) (40-65) % VBG Base Excess (0.0-2.0) mmol/L VBG Potassium (3.6-5.2) mmol/L Glucose (75-110) mg/dl Lactate (0.7-2.1) mmol/L FiO2 % Sodium 150 H (132-148) mmol/L Potassium 3.2 L (3.6-5.0) mmol/L Chloride 106 (95-110) mmol/L Carbon Dioxide 35 H (21-33) mmol/L Anion Gap 12 (10-20) BUN 35 H (7-21) mg/dL Creatinine 0.6 (0.5-1.4) mg/dL Est GFR ( Amer) > 60 Est GFR (Non-Af Amer) > 60 Random Glucose 132 H (70-110) mg/dL Calcium 7.4 L (8.4-10.5) mg/dL Phosphorus 2.8 (2.5-4.5) mg/dL Magnesium 2.7 H (1.7-2.2) mg/dL Total Bilirubin 0.4 (0.2-1.3) mg/dL AST 54 (15-59) U/L ALT 56 (7-56) U/L Alkaline Phosphatase 83 (38-133) U/L Total Protein 5.3 L (5.8-8.3) g/dL Albumin 2.4 L (3.0-4.8) g/dL Globulin 2.9 gm/dL Albumin/Globulin Ratio 0.8 L (1.1-1.8) Venous Blood Potassium (3.6-5.2) mmol/L Urine Color Yellow (YELLOW) Urine Appearance Slight-cloudy (CLEAR) Urine pH 6.5 (4.7-8.0) Ur Specific [place] 1.020 (1.005-1.035) Urine Protein Trace H (<30 mg/dL) mg/dL Urine Glucose (UA) Negative (NEGATIVE) mg/dL Urine Ketones Negative (NEGATIVE) mg/dL Urine Blood Trace-intact H (NEGATIVE) Urine Nitrate Negative (NEGATIVE) Urine Bilirubin Negative (NEGATIVE) Urine Urobilinogen 0.2 (<1 E.U./dL) E.U./dL Ur Leukocyte Esterase Negative (NEGATIVE) Aakash/uL Urine RBC 1 - 3 (0-2) /hpf Urine WBC 0 - 2 (0-6) /hpf Ur Epithelial Cells 0 - 2 (0-5) /hpf Vancomycin Trough (5.0-10.0) ug/mL 06/01/16 05/31/16 Range/Units 00:50 10:59 WBC (4.5-11.0) 10^3/ul RBC (3.5-6.1) 10^6/uL Hgb (14.0-18.0) gm/dL Hct (42.0-52.0) % MCV (80.0-105.0) fL MCH (25.0-35.0) pg MCHC (31.0-37.0) g/dl RDW (11.5-14.5) % Plt Count (120.0-450.0) 10^3/uL MPV (7.0-11.0) fl Gran % (50.0-68.0) % Lymph % (Auto) (22.0-35.0) % [place] % (Auto) (1.0-6.0) % Eos % (Auto) (1.5-5.0) % Baso % (Auto) (0.0-3.0) % Gran # (1.4-6.5) Lymph # (1.2-3.4) [place] # (0.1-0.6) Eos # (0.0-0.7) Baso # (0.0-2.0) K/mm3 pO2 102 H (30-55) mm/Hg VBG pH 7.41 (7.32-7.43) VBG pCO2 52.0 (40-60) VBG HCO3 33.0 H (21-28) mmol/l VBG Total CO2 34.6 H (22-28) mmol.L VBG O2 Sat (Calc) 98.0 H (40-65) % VBG Base Excess 6.9 H (0.0-2.0) mmol/L VBG Potassium 2.7 L (3.6-5.2) mmol/L Glucose 193 H (75-110) mg/dl Lactate 1.6 (0.7-2.1) mmol/L FiO2 21.0 % Sodium 145.0 (132-148) mmol/L Potassium (3.6-5.0) mmol/L Chloride 116.0 H (95-110) mmol/L Carbon Dioxide (21-33) mmol/L Anion Gap (10-20) BUN (7-21) mg/dL Creatinine (0.5-1.4) mg/dL Est GFR ( Amer) Est GFR (Non-Af Amer) Random Glucose (70-110) mg/dL Calcium (8.4-10.5) mg/dL Phosphorus (2.5-4.5) mg/dL Magnesium (1.7-2.2) mg/dL Total Bilirubin (0.2-1.3) mg/dL AST (15-59) U/L ALT (7-56) U/L Alkaline Phosphatase (38-133) U/L Total Protein (5.8-8.3) g/dL Albumin (3.0-4.8) g/dL Globulin gm/dL Albumin/Globulin Ratio (1.1-1.8) Venous Blood Potassium 2.7 L (3.6-5.2) mmol/L Urine Color (YELLOW) Urine Appearance (CLEAR) Urine pH (4.7-8.0) Ur Specific [place] (1.005-1.035) Urine Protein (<30 mg/dL) mg/dL Urine Glucose (UA) (NEGATIVE) mg/dL Urine Ketones (NEGATIVE) mg/dL Urine Blood (NEGATIVE) Urine Nitrate (NEGATIVE) Urine Bilirubin (NEGATIVE) Urine Urobilinogen (<1 E.U./dL) E.U./dL Ur Leukocyte Esterase (NEGATIVE) Aakash/uL Urine RBC (0-2) /hpf Urine WBC (0-6) /hpf Ur Epithelial Cells (0-5) /hpf Vancomycin Trough 15.0 H (5.0-10.0) ug/mL Laboratory Results - last 24 hr 05/31/16 06/01/16 06/01/16 10:59 00:50 01:25 WBC RBC Hgb Hct MCV MCH MCHC RDW Plt Count MPV Gran % Lymph % (Auto) [place] % (Auto) Eos % (Auto) Baso % (Auto) Gran # Lymph # [place] # Eos # Baso # pO2 102 H VBG pH 7.41 VBG pCO2 52.0 VBG HCO3 33.0 H VBG Total CO2 34.6 H VBG O2 Sat (Calc) 98.0 H VBG Base Excess 6.9 H VBG Potassium 2.7 L Sodium 145.0 Chloride 116.0 H Glucose 193 H Lactate 1.6 FiO2 21.0 Potassium Carbon Dioxide Anion Gap BUN Creatinine Est GFR ( Amer) Est GFR (Non-Af Amer) Random Glucose Calcium Phosphorus Magnesium Total Bilirubin AST ALT Alkaline Phosphatase Total Protein Albumin Globulin Albumin/Globulin Ratio Venous Blood Potassium 2.7 L Urine Color Yellow Urine Appearance Slight-cloudy Urine pH 6.5 Ur Specific [place] 1.020 Urine Protein Trace H Urine Glucose (UA) Negative Urine Ketones Negative Urine Blood Trace-intact H Urine Nitrate Negative Urine Bilirubin Negative Urine Urobilinogen 0.2 Ur Leukocyte Esterase Negative Urine RBC 1 - 3 Urine WBC 0 - 2 Ur Epithelial Cells 0 - 2 Vancomycin Trough 15.0 H 06/01/16 06/01/16 06:00 07:00 WBC 38.9 H* D RBC 4.14 Hgb 11.9 L Hct 38.7 L MCV 93.5 MCH 28.7 MCHC 30.7 L RDW 18.9 H Plt Count 241 MPV 11.6 H Gran % 91.8 H Lymph % (Auto) 3.7 L [place] % (Auto) 4.4 Eos % (Auto) 0.0 L Baso % (Auto) 0.1 Gran # 34.85 H Lymph # 1.4 [place] # 1.7 H Eos # 0.0 Baso # 0.04 pO2 VBG pH VBG pCO2 VBG HCO3 VBG Total CO2 VBG O2 Sat (Calc) VBG Base Excess VBG Potassium Sodium 150 H Chloride 106 Glucose Lactate FiO2 Potassium 3.2 L Carbon Dioxide 35 H Anion Gap 12 BUN 35 H Creatinine 0.6 Est GFR ( Amer) > 60 Est GFR (Non-Af Amer) > 60 Random Glucose 132 H Calcium 7.4 L Phosphorus 2.8 Magnesium 2.7 H Total Bilirubin 0.4 AST 54 ALT 56 Alkaline Phosphatase 83 Total Protein 5.3 L Albumin 2.4 L Globulin 2.9 Albumin/Globulin Ratio 0.8 L Venous Blood Potassium Urine Color Urine Appearance Urine pH Ur Specific [place] Urine Protein Urine Glucose (UA) Urine Ketones Urine Blood Urine Nitrate Urine Bilirubin Urine Urobilinogen Ur Leukocyte Esterase Urine RBC Urine WBC Ur Epithelial Cells Vancomycin Trough Fingerstick Blood Sugar Results: 132 Review of Systems - Review of Systems Systems not reviewed;Unavailable: Intubated Critical Care Progress Note - Ventilator Checklist Head of Bed 30 Degrees: Yes Daily Sedation Vacation: No PUD Prophalyxis: Yes DVT Prophylaxis: Yes - Nutrition Nutrition: Nutrition Category Date Time Status NPO Diet [DIET] Diets 05/26/16 Breakfast Ordered Assessment/Plan - Assessment and Plan (Free Text) Assessment: The patient is a 66 year old man with a history of developmental delay, iron deficiency anemia, and degenerative arthritis who was admitted to [facility] on with bilateral, non-reducible inguinal hernias and a CT-scan showing a large cecal mass, concerning for malignancy. As a result, he underwent an exploratory laparotomy and right hemicolectomy (with pathology of cecal mass still pending) . Because of the hemicolectomy, and the large size of the patients bilateral inguinal hernias could not be repaired during the procedure. Post-operatively, the patient developed marked leukocytosis which is being treated with IV Merrem , vanco and Flagyl by ID consult. The CT scan shows an incarcerated right hernia sac with secondary small bowel obstruction, which general surgery manually reduced but reccuring. The bleeding scan shows active bleeding most likely from the sigmoid colon. Bleeding resolved. Pt intubated. Hypoxic respiratory failure ventilator dependent 2/2 aspiration pneumonia and ARDS Hemorrhagic shock 2/2 GI bleed: resolved. off pressors Neuro: AAO x 0 , unresponsive Mental Retardation Maintain normothermia -Morphine, Ativan PRN -Off sedation Neuro following: f/u EEG, f/u CT head CV: Hemodynamically stable: Off pressors Maintain MAP >65 Pulm: CXR : b/l infiltration Maintain Sp02>90 , TV 6ml/kg IBW, Plateau pressure <30 Vent setting at 55% fio2/6/20/350 ABX per ID Lasix DCed Possible trach by surgery/ PEG by GI Duoneb Steroid Wean vent GI: Colon CA: S/P R nimo for SBO and cecal mass: Path-Invasive adenoCA of colon 4x5cm T3N0 Bloody BM: resolved NPO/OGT/PPN Protonix IV 40mg Hold PO meds Hold hepatin sub Q, colace GI on board f/u CT w PO contrast Poss Tube feed after CT Heme: 6 PRBC given WBC 39 today hgb: 12 Transfuse if Hgb <8 Heme/Onc consult for Colon CA Renal/: Urine output 2L /24hrs. Cr 0.6 Hernia recurrent bilaterally Continue to monitor electrolytes will replace/replete as needed Lasix held ID: Urine cx 05/16 : Proteus sensitive for cefetpime and Cipro Leukocystosis 39 today. Noonan- cultures pending Vanc/Merrem/Flagyl ID on board Endo: SSI , Accucheck q2 Maintain euglycemia GI ppx: PTX DVT ppx: SCDs Disposition: Guarded. Contact family for possible DNR/DNI Case seen, reviewed and discussed with attending <Albert Mojica - Last Filed: 06/01/16 11:58> CCU Objective - Vital Signs / Intake & Output Vital Signs (Last 4 hours): Vital Signs Pulse 06/01/16 08:00 115 H Intake and Output (Last 8hrs): Intake & Output 05/31/16 06/01/16 06/01/16 22:59 06:59 14:59 Intake Total 860 1420 Output Total 601 800 Balance 259 620 Weight 159 lb 1.6 oz Intake: IV 1420 Right Internal Jugular 1420 TPN/PPN 420 Other 440 Output: Urine 600 800 2-way Urethral 600 800 Stool 1 Other: Voiding Method Indwelling Catheter Indwelling Catheter # Bowel Movements 2 - Medications Active Medications: Active Medications Generic Name Dose Route Start Last Admin Trade Name Freq PRN Reason Stop Dose Admin Acetaminophen 650 mg 05/17/16 08:33 Tylenol 325mg Tab PO Q4H PRN FEVER, PAIN Albuterol/Ipratropium 3 ml 05/30/16 14:00 06/01/16 07:29 Duoneb 3 Mg/0.5 Mg (3 Ml) Ud IH 3 ml [id number] SHARIF Administration Metronidazole 100 mls @ 100 mls/hr 05/24/16 08:15 06/01/16 05:06 Flagyl IVPB 100 mls/hr Q8 SHARIF Administration Protocol Vancomycin HCl 250 mls @ 167 mls/hr 05/28/16 18:00 06/01/16 05:04 Vancomycin 1gm IVPB 167 mls/hr Q12H SHARIF Administration Protocol Meropenem 1 gm/ Dextrose 100 mls @ 100 mls/hr 05/31/16 13:36 06/01/16 05:05 IVPB 06/01/16 23:59 100 mls/hr Q8 SHARIF Administration Protocol Multivitamins/Vitamin C 10 ml/ 1,011 mls @ 42 mls/hr 06/01/16 18:00 Chromium/Copper/Manganese/ IV 06/04/16 17:59 Zinc 1 ml/ Amino Acids .Q24H SHARIF Folic Acid 1 mg/ Thiamine HCl 1,011.2 mls @ 75 mls/hr 06/01/16 09:26 06/01/16 09:49 100 mg/ Multivitamins/Vitamin IV 06/01/16 18:00 75 mls/hr C 10 ml/ Dextrose .[id number] SHARIF Administration Potassium Chloride 100 mls @ 50 mls/hr 06/01/16 09:30 06/01/16 09:49 Potassium Chloride 20 Meq/100 Ml IVPB 06/01/16 13:29 50 mls/hr Q2H SHARIF Administration Insulin Human Lispro 0 units 05/31/16 22:00 06/01/16 08:00 Humalog Med SC Not Given ACHS SHARIF Protocol Lorazepam 2 mg 05/30/16 17:01 Ativan IVP Q3 PRN Agitation Protocol Methylprednisolone 40 mg 06/01/16 10:00 06/01/16 10:05 Solu-Medrol IVP Not Given DAILY SHARIF Morphine Sulfate 2 mg 05/30/16 17:00 Morphine IVP Q2H PRN Agitation Pantoprazole Sodium 40 mg 06/01/16 10:00 06/01/16 09:50 Protonix Inj IVP 40 mg Q12 SHARIF Administration - Patient Studies Lab Studies: Microbiology Studies 05/31/16 09:30 Gram Stain - Final Sputum Sputum Culture - Preliminary Lab Studies 06/01/16 06/01/16 06/01/16 Range/Units 07:00 06:00 01:25 WBC 38.9 H* D (4.5-11.0) 10^3/ul RBC 4.14 (3.5-6.1) 10^6/uL Hgb 11.9 L (14.0-18.0) gm/dL Hct 38.7 L (42.0-52.0) % MCV 93.5 (80.0-105.0) fL MCH 28.7 (25.0-35.0) pg MCHC 30.7 L (31.0-37.0) g/dl RDW 18.9 H (11.5-14.5) % Plt Count 241 (120.0-450.0) 10^3/uL MPV 11.6 H (7.0-11.0) fl Gran % 91.8 H (50.0-68.0) % Lymph % (Auto) 3.7 L (22.0-35.0) % [place] % (Auto) 4.4 (1.0-6.0) % Eos % (Auto) 0.0 L (1.5-5.0) % Baso % (Auto) 0.1 (0.0-3.0) % Gran # 34.85 H (1.4-6.5) Lymph # 1.4 (1.2-3.4) [place] # 1.7 H (0.1-0.6) Eos # 0.0 (0.0-0.7) Baso # 0.04 (0.0-2.0) K/mm3 pO2 (30-55) mm/Hg VBG pH (7.32-7.43) VBG pCO2 (40-60) VBG HCO3 (21-28) mmol/l VBG Total CO2 (22-28) mmol.L VBG O2 Sat (Calc) (40-65) % VBG Base Excess (0.0-2.0) mmol/L VBG Potassium (3.6-5.2) mmol/L Glucose (75-110) mg/dl Lactate (0.7-2.1) mmol/L FiO2 % Sodium 150 H (132-148) mmol/L Potassium 3.2 L (3.6-5.0) mmol/L Chloride 106 (95-110) mmol/L Carbon Dioxide 35 H (21-33) mmol/L Anion Gap 12 (10-20) BUN 35 H (7-21) mg/dL Creatinine 0.6 (0.5-1.4) mg/dL Est GFR ( Amer) > 60 Est GFR (Non-Af Amer) > 60 Random Glucose 132 H (70-110) mg/dL Calcium 7.4 L (8.4-10.5) mg/dL Phosphorus 2.8 (2.5-4.5) mg/dL Magnesium 2.7 H (1.7-2.2) mg/dL Total Bilirubin 0.4 (0.2-1.3) mg/dL AST 54 (15-59) U/L ALT 56 (7-56) U/L Alkaline Phosphatase 83 (38-133) U/L Total Protein 5.3 L (5.8-8.3) g/dL Albumin 2.4 L (3.0-4.8) g/dL Globulin 2.9 gm/dL Albumin/Globulin Ratio 0.8 L (1.1-1.8) Venous Blood Potassium (3.6-5.2) mmol/L Urine Color Yellow (YELLOW) Urine Appearance Slight-cloudy (CLEAR) Urine pH 6.5 (4.7-8.0) Ur Specific [place] 1.020 (1.005-1.035) Urine Protein Trace H (<30 mg/dL) mg/dL Urine Glucose (UA) Negative (NEGATIVE) mg/dL Urine Ketones Negative (NEGATIVE) mg/dL Urine Blood Trace-intact H (NEGATIVE) Urine Nitrate Negative (NEGATIVE) Urine Bilirubin Negative (NEGATIVE) Urine Urobilinogen 0.2 (<1 E.U./dL) E.U./dL Ur Leukocyte Esterase Negative (NEGATIVE) Aakash/uL Urine RBC 1 - 3 (0-2) /hpf Urine WBC 0 - 2 (0-6) /hpf Ur Epithelial Cells 0 - 2 (0-5) /hpf 06/01/16 Range/Units 00:50 WBC (4.5-11.0) 10^3/ul RBC (3.5-6.1) 10^6/uL Hgb (14.0-18.0) gm/dL Hct (42.0-52.0) % MCV (80.0-105.0) fL MCH (25.0-35.0) pg MCHC (31.0-37.0) g/dl RDW (11.5-14.5) % Plt Count (120.0-450.0) 10^3/uL MPV (7.0-11.0) fl Gran % (50.0-68.0) % Lymph % (Auto) (22.0-35.0) % [place] % (Auto) (1.0-6.0) % Eos % (Auto) (1.5-5.0) % Baso % (Auto) (0.0-3.0) % Gran # (1.4-6.5) Lymph # (1.2-3.4) [place] # (0.1-0.6) Eos # (0.0-0.7) Baso # (0.0-2.0) K/mm3 pO2 102 H (30-55) mm/Hg VBG pH 7.41 (7.32-7.43) VBG pCO2 52.0 (40-60) VBG HCO3 33.0 H (21-28) mmol/l VBG Total CO2 34.6 H (22-28) mmol.L VBG O2 Sat (Calc) 98.0 H (40-65) % VBG Base Excess 6.9 H (0.0-2.0) mmol/L VBG Potassium 2.7 L (3.6-5.2) mmol/L Glucose 193 H (75-110) mg/dl Lactate 1.6 (0.7-2.1) mmol/L FiO2 21.0 % Sodium 145.0 (132-148) mmol/L Potassium (3.6-5.0) mmol/L Chloride 116.0 H (95-110) mmol/L Carbon Dioxide (21-33) mmol/L Anion Gap (10-20) BUN (7-21) mg/dL Creatinine (0.5-1.4) mg/dL Est GFR ( Amer) Est GFR (Non-Af Amer) Random Glucose (70-110) mg/dL Calcium (8.4-10.5) mg/dL Phosphorus (2.5-4.5) mg/dL Magnesium (1.7-2.2) mg/dL Total Bilirubin (0.2-1.3) mg/dL AST (15-59) U/L ALT (7-56) U/L Alkaline Phosphatase (38-133) U/L Total Protein (5.8-8.3) g/dL Albumin (3.0-4.8) g/dL Globulin gm/dL Albumin/Globulin Ratio (1.1-1.8) Venous Blood Potassium 2.7 L (3.6-5.2) mmol/L Urine Color (YELLOW) Urine Appearance (CLEAR) Urine pH (4.7-8.0) Ur Specific [place] (1.005-1.035) Urine Protein (<30 mg/dL) mg/dL Urine Glucose (UA) (NEGATIVE) mg/dL Urine Ketones (NEGATIVE) mg/dL Urine Blood (NEGATIVE) Urine Nitrate (NEGATIVE) Urine Bilirubin (NEGATIVE) Urine Urobilinogen (<1 E.U./dL) E.U./dL Ur Leukocyte Esterase (NEGATIVE) Aakash/uL Urine RBC (0-2) /hpf Urine WBC (0-6) /hpf Ur Epithelial Cells (0-5) /hpf Laboratory Results - last 24 hr 06/01/16 06/01/16 06/01/16 00:50 01:25 06:00 WBC RBC Hgb Hct MCV MCH MCHC RDW Plt Count MPV Gran % Lymph % (Auto) [place] % (Auto) Eos % (Auto) Baso % (Auto) Gran # Lymph # [place] # Eos # Baso # pO2 102 H VBG pH 7.41 VBG pCO2 52.0 VBG HCO3 33.0 H VBG Total CO2 34.6 H VBG O2 Sat (Calc) 98.0 H VBG Base Excess 6.9 H VBG Potassium 2.7 L Sodium 145.0 Chloride 116.0 H Glucose 193 H Lactate 1.6 FiO2 21.0 Potassium Carbon Dioxide Anion Gap BUN Creatinine Est GFR ( Amer) Est GFR (Non-Af Amer) Random Glucose Calcium Phosphorus 2.8 Magnesium 2.7 H Total Bilirubin AST ALT Alkaline Phosphatase Total Protein Albumin Globulin Albumin/Globulin Ratio Venous Blood Potassium 2.7 L Urine Color Yellow Urine Appearance Slight-cloudy Urine pH 6.5 Ur Specific [place] 1.020 Urine Protein Trace H Urine Glucose (UA) Negative Urine Ketones Negative Urine Blood Trace-intact H Urine Nitrate Negative Urine Bilirubin Negative Urine Urobilinogen 0.2 Ur Leukocyte Esterase Negative Urine RBC 1 - 3 Urine WBC 0 - 2 Ur Epithelial Cells 0 - 2 06/01/16 07:00 WBC 38.9 H* D RBC 4.14 Hgb 11.9 L Hct 38.7 L MCV 93.5 MCH 28.7 MCHC 30.7 L RDW 18.9 H Plt Count 241 MPV 11.6 H Gran % 91.8 H Lymph % (Auto) 3.7 L [place] % (Auto) 4.4 Eos % (Auto) 0.0 L Baso % (Auto) 0.1 Gran # 34.85 H Lymph # 1.4 [place] # 1.7 H Eos # 0.0 Baso # 0.04 pO2 VBG pH VBG pCO2 VBG HCO3 VBG Total CO2 VBG O2 Sat (Calc) VBG Base Excess VBG Potassium Sodium 150 H Chloride 106 Glucose Lactate FiO2 Potassium 3.2 L Carbon Dioxide 35 H Anion Gap 12 BUN 35 H Creatinine 0.6 Est GFR ( Amer) > 60 Est GFR (Non-Af Amer) > 60 Random Glucose 132 H Calcium 7.4 L Phosphorus Magnesium Total Bilirubin 0.4 AST 54 ALT 56 Alkaline Phosphatase 83 Total Protein 5.3 L Albumin 2.4 L Globulin 2.9 Albumin/Globulin Ratio 0.8 L Venous Blood Potassium Urine Color Urine Appearance Urine pH Ur Specific [place] Urine Protein Urine Glucose (UA) Urine Ketones Urine Blood Urine Nitrate Urine Bilirubin Urine Urobilinogen Ur Leukocyte Esterase Urine RBC Urine WBC Ur Epithelial Cells Critical Care Progress Note - Nutrition Nutrition: Nutrition Category Date Time Status NPO Diet [DIET] Diets 05/26/16 Breakfast Ordered Attending/Attestation - Attestation I have personally seen and examined this patient.: Yes I have fully participated in the care of the patient.: Yes I have reviewed all pertinent clinical information: Yes Notes (Text): 06/01/16 11:55 The patient was seen and examined at the bedside. Patient care was discussed with resident Medical records, lab studies, and imaging were reviewed and management issues were discussed and formulated. Last 24H events reviewed. Agree with above treatment plans as outlined in 's note with addition of the following: -hemodynamic monitoring to maintain MAP>65 -mechanical ventilation and o2 supplementation to maintain Spo2 >90 Pao2>60 -monitor for TV 6ml\kg IBW and plateau pressure <30 -ABG in AM reviewed -decreased PEEP to 6 -continue nebs and taper off solumedrol -continue broad spectrum Abx as per ID team ; f\u cultures and levels -f\u Bun\Cr and U\o; monitor Na+ and continue D5w -monitor and replace e-lites -off Nimbex ; remains unresponsive -neurology team eval -f\u Ct head and EEG -NPO and aspiration precautions -continue TPN -surgical team following -f\u CT A\P -heme\onc f\u -surgical team eval for Trach and PEG as pt prognosis for extubation is very poor -DVT \ PUD prophylaxis CCM f\u 37min
--- NOTE | 2016-06-01 12:01 | CP.PCM.PN ---
Subjective - Date & Time of Evaluation Date of Evaluation: 06/01/16 Time of Evaluation: 12:00 - Subjective Subjective: Intubated, ventilator dependent, off sedation,unresponsive. Objective - Vital Signs/Intake and Output Vital Signs (last 24 hours): Temp Pulse Resp BP Pulse Ox 97.9 F 115 H 29 H 144/76 90 L 06/01/16 04:00 06/01/16 08:00 05/31/16 18:00 06/01/16 07:00 06/01/16 07:00 Intake and Output: 06/01/16 06/01/16 06:59 18:59 Intake Total 1420 Output Total 800 Balance 620 - Medications Medications: Current Medications Acetaminophen (Tylenol 325mg Tab) 650 mg PO Q4H PRN PRN Reason: FEVER, PAIN Albuterol/Ipratropium (Duoneb 3 Mg/0.5 Mg (3 Ml) Ud) 3 ml IH [id number] SHARIF Last Admin: 06/01/16 07:29 Dose: 3 ml Metronidazole (Flagyl) 100 mls @ 100 mls/hr IVPB Q8 [facility] PRN Reason: Protocol Last Admin: 06/01/16 05:06 Dose: 100 mls/hr Vancomycin HCl (Vancomycin 1gm) 250 mls @ 167 mls/hr IVPB Q12H [facility] PRN Reason: Protocol Last Admin: 06/01/16 05:04 Dose: 167 mls/hr Meropenem 1 gm/ Dextrose 100 mls @ 100 mls/hr IVPB Q8 [facility] PRN Reason: Protocol Stop: 06/01/16 23:59 Last Admin: 06/01/16 05:05 Dose: 100 mls/hr Multivitamins/Vitamin C 10 ml/Chromium/Copper/Manganese/Zinc 1 ml/ Amino Acids 1,011 mls @ 42 mls/hr IV .Q24H [facility] Stop: 06/04/16 17:59 Folic Acid 1 mg/ Thiamine HCl 100 mg/ Multivitamins/Vitamin C 10 ml/ Dextrose 1 ,011.2 mls @ 75 mls/hr IV .[id number] [facility] Stop: 06/01/16 18:00 Last Admin: 06/01/16 09:49 Dose: 75 mls/hr Potassium Chloride (Potassium Chloride 20 Meq/100 Ml) 100 mls @ 50 mls/hr IVPB Q2H [facility] Stop: 06/01/16 13:29 Last Admin: 06/01/16 09:49 Dose: 50 mls/hr Insulin Human Lispro (Humalog Med) 0 units SC ACHS [facility] PRN Reason: Protocol Last Admin: 06/01/16 08:00 Dose: Not Given Lorazepam (Ativan) 2 mg IVP Q3 PRN; Protocol PRN Reason: Agitation Methylprednisolone (Solu-Medrol) 40 mg IVP DAILY [facility] Last Admin: 06/01/16 10:05 Dose: Not Given Morphine Sulfate (Morphine) 2 mg IVP Q2H PRN PRN Reason: Agitation Pantoprazole Sodium (Protonix Inj) 40 mg IVP Q12 [facility] Last Admin: 06/01/16 09:50 Dose: 40 mg - Labs Labs: 06/01/16 07:00 06/01/16 07:00 PT 16.7 Seconds (9.9-11.8) H 05/27/16 17:35 INR 1.55 (0.93-1.08) H 05/27/16 17:35 APTT 28.1 Seconds (23.7-30.8) 05/27/16 17:35 - Constitutional Appears: Chronically Ill - Eye Exam Eye Exam: Normal appearance, PERRL - ENT Exam ENT Exam: Mucous Membranes Moist - Respiratory Exam Respiratory Exam: Decreased Breath Sounds, NORMAL BREATHING PATTERN - Cardiovascular Exam Cardiovascular Exam: Tachycardia, +S1, +S2 - GI/Abdominal Exam GI & Abdominal Exam: Soft, Diminished Bowel Sounds - Neurological Exam Neurological Exam: Altered - Skin Skin Exam: Dry, Pallor Assessment and Plan - Assessment and Plan (Free Text) Assessment: 85 year old male with newly diagnosed adenocarcinoma of cecum,s/p right nimo colectomy,GI bleed,sepsis, respiratory failure, ventilator dependent,altered mental status. Multiple prior attempts have been made to locate nephews Sagar and Demetri Potter to update them of patients condition. An Advance Directive has been located. The directive names Sagar Potter and friend, Bobby Cardenas as health care proxies. I left voice messages for both Sagar and Bobby, but have received no response. Plan: Continue current medical management. Will assist with establishing future goals of care
--- NOTE | 2016-06-01 14:08 | CON ---
DATE: 06/01/2016 HISTORY OF PRESENT ILLNESS: This is an 85-year-old man who is intubated and cannot give me any histo ry. Essentially, the patient was admitted when he started having abdominal pains and increasing scrot al masses. He was found to have a colon carcinoma in his right side with pressure pushing down the h ernias deeper into the scrotal sacs. PHYSICAL EXAMINATION: GENERAL: At present, the patient is intubated and not alert. SKIN: No petechiae, no bruises. HEENT: Anicteric. NODES: None palpable in the axillary, cervical or supraclavicular regions. LUNGS: Seem to be clear. He is intubated. HEART: S1, S2. ABDOMEN: Shows a recent scar but no liver, no spleen, no tenderness, and the scrotum shows massive s crotal sacs with probably bowel inside the scrotal sacs. EXTREMITIES: No edema. CENTRAL NERVOUS SYSTEM: Plantars are downgoing bilaterally. LABORATORY DATA: The white count has been drifting up. It was 31,000 two days ago. It is now 39,00 0, hemoglobin of 11.9, platelet count is 241 and granulocytes are 92%, so this is a leukocytosis, but the platelets are adequate and did not imply a severe DIC or sepsis involving thrombocytopenia. The lactate is normal. His liver function tests are only mildly elevated. The pathology shows a colon cancer with 0 out of 16 lymph nodes positive, so it is relatively early cancer, but he is not improve d and it seems probably that this is infectious or reactive leukocytosis. He is scheduled to go for a CAT scan. We will see if he does have an abscess or obstruction of his i ntestine or gangrene somewhere to explain the elevated white counts. So at this point, there is not m uch else to be done except for searching for an abscess and continue the antibiotics. Deep Barillas MD cc: [id number] TT: 06/01/2016 14:07:58 Confirmation # [id number] Dictation # [id number] cortez
--- NOTE | 2016-06-01 14:51 | CT ---
PROCEDURE: CT HEAD WITHOUT CONTRAST. HISTORY: change ms COMPARISON: None available. TECHNIQUE: Axial computed tomography images were obtained through the head/brain without intravenous contrast. Radiation dose: Total exam DLP = 800.04 mGy-cm. FINDINGS: HEMORRHAGE: No intracranial hemorrhage. 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 Moderate atrophy is noted. Moderate to extensive white matter changes are also noted likely due to chronic microvascular ischemic disease. VENTRICLES: Asymmetrical in the size of the lateral ventricle with the right is larger than the left of uncertain etiology and may be due to normal variant. CALVARIUM: Unremarkable. PARANASAL SINUSES: Unremarkable as visualized. No significant inflammatory changes. MASTOID AIR CELLS: Unremarkable as visualized. No inflammatory changes. OTHER FINDINGS: None. IMPRESSION: No evidence of acute intracranial hemorrhage intracranial collection acute territorial infarct mass effect or midline shift. Moderate atrophy and moderate white matter changes likely represent chronic microvascular ischemic disease. Foci of encephalomalacia at the right cerebellum. Asymmetry in the size of the lateral ventricles with the right is larger than the left.
--- NOTE | 2016-06-01 15:00 | CT ---
PROCEDURE: CT NECK WITHOUT CONTRAST HISTORY: EVAL COMPARISON: None. TECHNIQUE: CT of the neck without intravenous contrast. Coronal and sagittal reformats generated. Radiation dose: DLP 315.59 mGy-cm FINDINGS: NASOPHARYNX: Unremarkable. SUPRAHYOID NECK: Limited assessment due to the presence of ET tube and NG tube and lack of IV contrast administration. Oropharynx, oral cavity, parapharyngeal space and retropharyngeal space demonstrate no evidence of mass lesion fluid collection or definite evidence of acute pathology this limited study. The assessment of the oropharynx is limited with the presence of ET tube. . INFRAHYOID NECK: Limited assessment of the larynx hypopharynx and subglottic area due to the presence of ETT and ETT cuff. MASS: None. GLANDS: Parotid and submandibular glands unremarkable. Normal size thyroid gland, without nodule. LYMPH NODES: Normal. No lymphadenopathy. CERVICAL SPINE: Advanced degenerative changes seen at the thoracic spine. Large anterior and posterior osteophyte formation. OTHER FINDINGS: Right jugular central line is seen in place. Patchy ground-glass opacity seen at the lung apices of uncertain etiology. IMPRESSION: Limited assessment due to the presence of ET tube and NG tube and lack of IV contrast administration. No evidence of acute pathology, suspicious mass or lymphadenopathy in the neck in this limited study. Appropriate position of the ETT NG tube and right jugular central line. Nonspecific patchy ground-glass opacities in the lung apices.
--- NOTE | 2016-06-01 15:05 | CT ---
PROCEDURE: CT Chest, Abdomen and Pelvis without intravenous contrast HISTORY: aspiration pneumonia COMPARISON: CT abdomen/pelvis 05/25/2016 TECHNIQUE: Radiation dose: Total exam DLP = 1392.49 mGy-cm. FINDINGS: CT CHEST WITHOUT CONTRAST: LUNGS: Bilateral lower lobe consolidation/atelectasis. Consolidation posterior segment right upper lobe. Ground-glass opacity both upper lobes with some areas of likely emphysematous change. Likely infectious or inflammatory. Ground-glass opacity in the left upper lobe extends to lingula. MEDIASTINUM: Mild cardiomegaly. Normal caliber ascending thoracic aorta and main pulmonary artery. Right central venous infusion port terminating in the SVC. Endotracheal tube positioned approximately 2.7 cm above the tracheal flako. Nasogastric tube extends to gastric lumen. . LYMPH NODES: Unremarkable. PLEURA: Small bilateral pleural effusion. This is grossly unchanged in extent when compared to the prior abdominal CT of 05/25/2016. BONES: Unremarkable. OTHER FINDINGS: None. CT ABDOMEN AND PELVIS: LIVER: Unremarkable. No gross lesion or ductal dilatation. GALLBLADDER AND BILE DUCTS: Unremarkable. PANCREAS: Unremarkable. No gross lesion or ductal dilatation. SPLEEN: Unremarkable. ADRENALS: Unremarkable. No mass. KIDNEYS AND URETERS: Unremarkable. No hydronephrosis. No solid mass. VASCULATURE: Unremarkable. No aortic aneurysm. BOWEL: Partial right hemicolectomy with ileocolic anastomosis. Suspect sigmoidectomy with followup college anastomosis. Bilateral inguinal hernias. Mucosal thickening of numerous loops of small bowel in right inguinal hernia sac. No evidence of obstruction. Right hydrocele. Herniated left colon in the left inguinal hernia sac. Minimal left hydrocele. APPENDIX: Partial right hemicolectomy PERITONEUM: Trace ascites LYMPH NODES: Unremarkable. No enlarged lymph nodes. BLADDER: Poorly distended. Gleason catheter balloon. REPRODUCTIVE: Unremarkable prostate. BONES: Thoracolumbar levoscoliosis. No fracture identified. . OTHER FINDINGS: None. IMPRESSION: Multifocal pulmonary consolidation. Ground-glass opacities in both upper lobes including lingular segment left upper lobe. Likely infectious/ inflammatory. Small bilateral pleural effusion. Bilateral inguinal hernias. Mucosal thickening of multiple loops of small bowel in right inguinal hernia sac. No bowel obstruction. Nonobstructed left colon in the left inguinal hernia sac. Bilateral hydrocele, right greater than left. Trace ascites. ETT. NG tube. Gleason catheter. Partial right hemicolectomy and suspected sigmoidectomy.
[2016-06-01] MEDS: AMINO IV SCH (17:35)
[2016-06-01] MEDS: DEXT IV SCH (17:35)
[2016-06-01] MEDS: MULTIVITAMIN IV SCH (17:35)
[2016-06-01] MEDS: TRACE ELEMENTS IV SCH (17:35)
[2016-06-01] MEDS: [UNRECOGNIZED DRUG - OTHER] IV SCH (17:35)
--- NOTE | 2016-06-01 18:42 | CP.PCM.PN ---
Subjective - Date & Time of Evaluation Date of Evaluation: 06/01/16 Time of Evaluation: 17:30 - Subjective Subjective: Infectious Disease Follow Up: June 01, 2016 85 yo male with initial presentation for abdominal pain and abnormal CT scan sent from [facility] facility (I think [facility] [place]). 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 Currently the patient appears comfortable. He is unable to give any relevant information due to a severe developmental delay. Patient is currently post-operative day #9 and has been displaying increased leukocytosis since the surgery. Patient himself is intubated and ventilated. He was brought to MICU and remain here since. He required intubation and ventilation. Signs of aspiration pneumonia. On meropenem for now. Persistent leukocytosis. Patient in critical condition. Right IJ placed by MICU team. Case discussed with Dr. Pringle and Dr. Molina. The patient is on Meropenem and Flagyl for antibiotic coverage. Leukocytosis remains elevated at 29.6 today. Patient remains in critical condition but seems to have no further deterioration. Patient did receive 6 U of PRBCs, 4 U of FFP, and 1 U of platelets during the first 24 hours in ICU. Surgery has asked for a C. diff study which is negative. Melena and blood clots from rectum have slowed down considerably. Patient has an extremely poor prognosis. Currently off pressors and sedation. Poorly responsive. Very poor prognosis. Remains intubated and ventilated. Objective - Vital Signs/Intake and Output Vital Signs (last 24 hours): Temp Pulse Resp BP Pulse Ox 97.9 F 80 29 H 105/61 87 L 06/01/16 04:00 06/01/16 17:00 05/31/16 18:00 06/01/16 17:00 06/01/16 17:00 Intake and Output: 06/01/16 06/01/16 06:59 18:59 Intake Total 1420 1150 Output Total 800 750 Balance 620 400 - Medications Medications: Current Medications Acetaminophen (Tylenol 325mg Tab) 650 mg PO Q4H PRN PRN Reason: FEVER, PAIN Albuterol/Ipratropium (Duoneb 3 Mg/0.5 Mg (3 Ml) Ud) 3 ml IH [id number] SHARIF Last Admin: 06/01/16 13:00 Dose: 3 ml Metronidazole (Flagyl) 100 mls @ 100 mls/hr IVPB Q8 [facility] PRN Reason: Protocol Last Admin: 06/01/16 13:15 Dose: 100 mls/hr Vancomycin HCl (Vancomycin 1gm) 250 mls @ 167 mls/hr IVPB Q12H [facility] PRN Reason: Protocol Last Admin: 06/01/16 17:34 Dose: 167 mls/hr Meropenem 1 gm/ Dextrose 100 mls @ 100 mls/hr IVPB Q8 [facility]AR[facility] PRN Reason: Protocol Stop: 06/01/16 23:59 Last Admin: 06/01/16 13:15 Dose: 100 mls/hr Multivitamins/Vitamin C 10 ml/Chromium/Copper/Manganese/Zinc 1 ml/ Amino Acids 1,011 mls @ 42 mls/hr IV .Q24H [facility] Stop: 06/04/16 17:59 Last Admin: 06/01/16 17:35 Dose: 42 mls/hr Insulin Human Lispro (Humalog Med) 0 units SC ACHS SHARIF PRN Reason: Protocol Last Admin: 06/01/16 17:12 Dose: Not Given Methylprednisolone (Solu-Medrol) 40 mg IVP DAILY [facility] Last Admin: 06/01/16 10:05 Dose: Not Given Pantoprazole Sodium (Protonix Inj) 40 mg IVP Q12 [facility] Last Admin: 06/01/16 09:50 Dose: 40 mg - Labs Labs: 06/01/16 07:00 06/01/16 07:00 PT 16.7 Seconds (9.9-11.8) H 05/27/16 17:35 INR 1.55 (0.93-1.08) H 05/27/16 17:35 APTT 28.1 Seconds (23.7-30.8) 05/27/16 17:35 - Constitutional Appears: Chronically Ill - Head Exam Additional comments: intubated and ventilated. - Eye Exam Eye Exam: EOMI, PERRL Pupil Exam: NORMAL ACCOMODATION, PERRL - ENT Exam ENT Exam: Mucous Membranes Moist, Normal External Ear Exam, TM's Normal Bilaterally Additional comments: intubated and ventilated - Neck Exam Additional comments: intubated and ventilated - Respiratory Exam Respiratory Exam: Clear to Ausculation Bilateral, NORMAL BREATHING PATTERN. absent: Rales, Rhonchi, Wheezes - Cardiovascular Exam Cardiovascular Exam: REGULAR RHYTHM, RRR, +S1, +S2 - GI/Abdominal Exam GI & Abdominal Exam: Soft, Normal Bowel Sounds. absent: Distended, Tenderness Additional comments: mild distension - Extremities Exam Additional comments: thin and cachetic. edema +1-2 of the bilateral upper extremities. Scrotal swelling. mild edema of the lower extremities. - Neurological Exam Additional comments: Intubated, ventilated, and poorly responsive. - Psychiatric Exam Additional comments: Intubated, ventilated, and poorly responsive. Assessment and Plan - Assessment and Plan (Free Text) Assessment: 85 yo male with cecal mass and bilateral hernia had exploratory laparotomy with right hemicolectomy. The patient is unable to give any significant information when speaking with him. He is not complaining of pain. The patient leukocytosis remains elevated at 29.6. There is a mild left shift to the leukocytosis. Supportive care. Silva cultures sent. Had Proteus in urine culture over a week ago but more recent urine culture is negative for growth. No growth in recent cultures so far. C. Diff studies negative. Currently on Meropenem and Flagyl for antibiotic coverage. Supportive care. CT Scan results noted with small bowel obstruction proximal to the right hernia sac containing dilated loops of small bowel. Findings consistent with incarceration and secondary proximal bowel obstruction. GI bleeding scan showing active bleed on both sides of the pelvis probably within the sigmoid colon. Surgery aware of findings - no intervention at this time. Remains in MICU and required intubation and ventilation. On antibiotics of Vancomycin, Meropenem, and Flagyl currently. Awaiting repeat cultures - negative to date at 5+ days. No further surgical interventions. Possible aspiration pneumonia. Bleed at anastomotic site. Patient remains unstable. CT when patient stable enough to do so. He is currently off pressors and sedation. Repeat Abdominal X-ray shows resolvement of SBO portion of disease. Patient remains critically ill and has an extremely poor prognosis. He remains intubated and ventilated. Thank you for allowing me to participate in the care of the patient, we will follow with you.
--- NOTE | 2016-06-01 20:40 | EEG ---
DATE: 06/01/2016 INTRODUCTION: This is a digitally recorded EEG monitoring using standard EEG montages. BACKGROUND RHYTHM: The EEG shows a background activity of 3-4 Hz delta activity. This EEG activity is present diffusely. The EEG activity is bilaterally symmetrical and synchronous. No eye opening w as seen. ABNORMAL POTENTIALS: No spikes, sharp waves or focal slowing was seen. PHOTIC STIMULATION AND HYPERVENTILATION: Photic stimulation did not reveal any abnormality. Hyperve ntilation was not performed. IMPRESSION: Abnormal EEG. The above findings are consistent with severe bihemispheric cerebral dysf unction. No epileptiform activity seen in this EEG recording. Sofía Zepeda MD cc: [id number] TT: 06/01/2016 20:39:33 Confirmation # [id number] Dictation # [id number] cortez
[2016-06-02] MEDS: Albuterol-Ipratrop 3 mg / 0.5 (3 ml) UD IH SCH ×4 (01:35→20:00)
--- NOTE | 2016-06-02 01:47 | PN ---
DATE: 06/01/2016 ADDENDUM: This is an addendum to gastrointestinal progress report dictated by Henrietta Hurst NP. At the time of examination, the patient was on vent. The plan was to have the CT scan done. History of status post laparotomy and right hemicolectomy for cecal lesion. The patient has a large inguina l scrotal hernia. The CAT scan showed the pathology was reported as adenocarcinoma of the cecum. __ ___ benign lymph nodes. The patient has an inguinal scrotal hernia, small-bowel obstruction se psis, status post cardiac arrest . PHYSICAL EXAMINATION: ABDOMEN: Softly distended. Dressing present. Large inguinal scrotal hernia present. It was review ed, the CAT scan. Continue the antibiotics. Thank you for allowing me to participate in the care of the patient. Ann Luna MD cc: [id number] TT: 06/02/2016 01:46:20 Confirmation # [id number] Dictation # [id number] mn
[2016-06-02] MEDS: metroNIDAZOLE IV 500 mg/100 ml 100 ML IVPB SCH ×3 (05:44→22:00)
[2016-06-02] MEDS: Vancomycin 1gm in NS 250ml 250 ML IVPB SCH (05:45)
[2016-06-02 08:24] LABS: BASO # 0.04 K/mm3 (0.0-2.0); BASO % 0.1 % (0.0-3.0); GRAN # 28.57 (1.4-6.5); GRAN % 89.8 % (50.0-68.0); HEMATOCRIT 39.6 % (42.0-52.0); LYMPH # 1.7 (1.2-3.4); LYMPH % 5.5 % (22.0-35.0); MEAN CELL VOLUME 92.5 fL (80.0-105.0); MEAN CORPUSCULAR HEMOGLOBIN 28.5 pg (25.0-35.0); MEAN CORPUSCULAR HGB CONC 30.8 g/dl (31.0-37.0); MEAN PLATELET VOLUME 11.6 fl (7.0-11.0); MONO # 1.5 (0.1-0.6); MONO % 4.6 % (1.0-6.0); PLATELET COUNT 283 10^3/uL (120.0-450.0); RED CELL DISTRIBUTION WIDTH 19.1 % (11.5-14.5)
[2016-06-02 08:26] LABS: WHITE BLOOD COUNT 31.8 10^3/ul (4.5-11.0)
[2016-06-02 08:27] LABS: ADD MANUAL DIFF? NO
[2016-06-02 08:34] LABS: ARTERIAL BLOOD GAS HCO3 32.7 mmol/L (21-28); ARTERIAL BLOOD GAS O2 CAPACITY 16.7 mL/dl (16-24); ARTERIAL BLOOD GAS O2 CONTENT 16.2 ML/dl (15-23); ARTERIAL BLOOD GAS PH 7.45 (7.35-7.45); ARTERIAL BLOOD HGB O2 SAT 94.8 % (95.0-98.0); CARBOXYHEMOGLOBIN 1.8 % (0.5-1.5); HHB 2.8 % (0-5); METHEMOGLOBIN 0.6 % (0.0-3.0)
[2016-06-02 08:35] LABS: ALB/GLOB RATIO 0.7 (1.1-1.8); ALKALINE PHOSPHATASE 85 U/L (38-133); ALT/SGPT 42 U/L (7-56); AST/SGOT 49 U/L (15-59); BILIRUBIN,TOTAL 0.6 mg/dL (0.2-1.3); BLOOD UREA NITROGEN 34 mg/dL (7-21); CALCIUM 7.6 mg/dL (8.4-10.5); CARBON DIOXIDE 36 mmol/L (21-33); CHLORIDE 108 mmol/L (98-107); GFR AFRICAN-AMERICAN > 60; GLUCOSE,RANDOM 119 mg/dL (70-110); MAGNESIUM 2.7 mg/dL (1.7-2.2); PHOSPHOROUS 2.1 mg/dL (2.5-4.5); POTASSIUM 3.5 mmol/L (3.6-5.0); SODIUM 147 mmol/L (132-148); TOTAL PROTEIN 5.3 g/dL (5.8-8.3)
[2016-06-02] MEDS: Insulin Lispro (humaLOG) MEDIUM Coverage SC SCH ×4 (10:02→22:35)
[2016-06-02] MEDS: MethylPREDNISolone 40 mg Vial IVP SCH (10:04)
--- NOTE | 2016-06-02 10:39 | PN ---
DATE: 06/02/2016 The patient is lying on the bed, on ventilator. No acute distress. PHYSICAL EXAMINATION: VITAL SIGNS: His blood pressure is 174/81, heart rate is 108 per minute. He is breathing at a rate of 21 per minute and his temperature is 97.6 degrees Fahrenheit. HEENT: Head is normocephalic, atraumatic. NECK: Supple. There are no carotid bruits. LUNGS: Clear. CARDIOVASCULAR: S1 and S2 audible. No murmurs. ABDOMEN: Soft and nontender. Bowel sounds are present. NEUROLOGIC EXAMINATION: MENTAL STATUS: The patient does not respond to verbal or noxious painful stimuli. CRANIAL NERVES: Pupils are 3 mm bilaterally, reactive to light. There is positive doll's eye. Posi tive corneal reflex. There is no withdrawal of extremities to noxious painful stimuli. Positive gag reflex. Plantars, no response. LABORATORIES: Reviewed, shows WBC of 31.8, hemoglobin 12.2, hematocrit 39.6 and platelets of 283. S odium is 147, potassium 3.5, chloride 108, carbon dioxide content 36, BUN of 34, creatinine of 0.5 an d glucose of 126. He had a CT scan of the head done on 05/31/2016 and it showed no evidence of acute intracranial hemorr annita, intracranial collection, acute territorial infarct, mass effect or midline shift. Moderate atr ophy and moderate white matter changes likely represent chronic microvascular ischemic changes. He a lso had an electroencephalogram, which was abnormal, consistent with severe bihemispheric cerebral dy sfunction. IMPRESSION: 1. Altered mental status, secondary to toxic metabolic encephalopathy. 2. Sepsis. 3. Respiratory failure. 4. Status post hemicolectomy. RECOMMENDATIONS: 1. The patient to be continued on IV antibiotics. 2. There is no improvement in patient's neurologic status. 3. The patient's prognosis remains guarded to poor. 4. Please continue supportive care and other treatment. Thank you for the opportunity to participate in the care of this patient. Sofía Zepeda MD cc: [id number] TT: 06/02/2016 10:38:41 Confirmation # [id number] Dictation # [id number]
--- NOTE | 2016-06-02 11:02 | RAD ---
HISTORY: intubated COMPARISON: 05/31/2016 FINDINGS: Endotracheal tube terminates 3.2 cm proximal to the flako. The nasogastric tube terminates in the stomach. The right IJV line terminates at the cavoatrial junction LUNGS: The lungs are hyperinflated and there are chronic changes in both lungs. There is multifocal airspace disease in the right upper lobe and left lower lobe. PLEURA: No significant pleural effusion identified, no pneumothorax apparent. CARDIOVASCULAR: Normal. OSSEOUS STRUCTURES: No significant abnormalities. VISUALIZED UPPER ABDOMEN: Normal. OTHER FINDINGS: None. IMPRESSION: Presumable multifocal pneumonia in the right upper lobe and left lower lobe superimposed on COPD.
[2016-06-02] MEDS: Potassium Chloride 20 mEq 100 ML IVPB SCH ×2 (12:15→14:00)
[2016-06-02] MEDS ORDERED: Fluconazole IV 400mg/200ml NS 200 ML IVPB STA (13:19)
--- NOTE | 2016-06-02 13:32 | PN ---
DATE: 06/02/2016 This 85-year-old male was examined at his bedside in the presence of his nurse, Madelin Thacker, registered nurse. 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 At the time of his transfer to ICU, he was noted to aspirate and now is being treated for aspiration pneumonia and ARDS. The patient is unable to be weaned off the ventilator at this time and remains unresponsive off sedation. He has been seen in consultation by Dr. Zepeda from neurology who has performed a CAT scan and EEG. The CAT scan showed no evidence of acute intracranial hemorrhage or stroke and he had an EEG which was consistent with severe bihemispheric cerebral dysfunction. He feels that the patient is manifesting altered mental status secondary to toxic metabolic encephalopathy. The patient has multiple other comorbidities at this time and is being treated supportively with parenteral antibiotics, IV fluids, IV parenteral nutrition, ventilatory support, PPN and electrolyte replacement as indicated. He is in a sinus tachycardia on the monitor. PHYSICAL EXAMINATION: TODAY'S VITAL SIGNS: Show temperature 97.4, pulse 111, blood pressure 162/72 and his blood gas shows pH of 7.45, pO2 of 76, pCO2 of 47, and bicarbonate 32 on an FIO2 of 55%, and PEEP of 6. I's and O's thus far today are 1054 in and 825 mL out. HEAD: Normocephalic, atraumatic. EYES: Show no icterus. NECK: Supple. ET tube in place. HEART: Rapid S1, S2. LUNGS: With rhonchi bilaterally, occasional wheezing, no rales. ABDOMEN: Soft. No palpable organomegaly, vertical incisional scar is clean and dry. EXTREMITIES: No clubbing, no cyanosis, no edema. The patient is wearing SCD anti-embolism stockings. SKIN: Shows no rashes. VASCULAR: Legs warm to touch. PSYCHOLOGICAL: Sedated. NEUROLOGIC: Unresponsive. LABORATORY DATA: White count 31,800, hemoglobin 12.2, hematocrit 39.6, platelets 283,000. Chemistries: Sodium 147, K 3.5, chloride 108, bicarbonate 36, BUN 34, creatinine 0.5, random blood sugar 119. Phosphorus 2.1, magnesium 2.7, bilirubin 0.6, AST 49, ALT 42, alkaline phosphatase 85. Emesis for blood was positive. Chest x-ray today shows multifocal pneumonia in the right upper lobe and the left lower lobe superimposed on chronic obstructive pulmonary disease. 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 Now patient is with respiratory failure, unable to be weaned off the vent and remains unresponsive with sedation being held in the setting of toxic metabolic encephalopathy and multisystem failure with comorbidities of shock liver improved, electrolyte imbalances including hypokalemia, hypomagnesemia, hypophosphatemia, hypernatremia, with probable stress gastritis, anemia of gastrointestinal bleeding, bilateral inguinal hernias and sepsis. PLAN: The patient continues on antibiotics under the direction of Dr. Victoria from infectious disease including IV vancomycin and IV Flagyl. He continues on PPN, duo nebulizers, insulin coverage, mineral replacements including IV potassium chloride. He remains on IV Protonix 40 mg IV q. 12. His IV Solu-Medrol is being tapered. He is receiving ventilatory support, anti-embolism stockings, insulin coverage, fall precaution, aspiration precautions, skin precautions, bedside physical therapy. He continues to be followed by hematology/oncology, Dr. Barillas; Dr. Luna, GI; Dr. Peterson, surgery; Dr. Victoria, infectious disease, Dr. Zepeda, neurology; the client delivery specialist and Shannan KIRBY from palliative care. Of note, no family members are able to be reached at this time to discuss further management including code status DNR. The patient remains a full code. Social service is attempting to reach the patient's next of kin. To my knowledge a certified letter has been sent and patient will be treated aggressively given his past desires for a full code. All of this was discussed in the ethics committee. The patient's overall prognosis is extremely poor and he continues to be monitored in critical care. Approximately one hour was spent in the care, coordination of care and discussion of care with the multiple disciplines involved in this patient's intensive medical care at the present time. Overall prognosis is poor. Codi Pringle MD cc: [id number] TT: 06/02/2016 13:30:55 Confirmation # [id number] Dictation # [id number]
--- NOTE | 2016-06-02 13:51 | CP.CCUPN ---
CCU Subjective - Physician Review Events Since Last Encounter (Free Text): 06/02/16 13:43 No acute events. pt is weaned off vasopressors thus far . No improvement in mental status . Was able to tolerate P.S trial x 90 min this a.m Critical Care Time Spent (in minutes): 65 CCU Objective - Vital Signs / Intake & Output Vital Signs (Last 4 hours): Vital Signs Pulse BP Pulse Ox 06/02/16 11:58 162/72 H 06/02/16 10:00 111 H 162/72 H 81 L Intake and Output (Last 8hrs): Intake & Output 06/01/16 06/02/16 06/02/16 22:59 06:59 14:59 Intake Total 1150 1054 Output Total 750 825 Balance 400 229 Weight 160 lb 11.2 oz Intake: IV 1150 1054 Right Internal Jugular 1150 1054 Output: Urine 750 825 2-way Urethral 750 825 Other: Voiding Method Indwelling Catheter Indwelling Catheter # Bowel Movements 2 - Physical Exam Head: Positive for: Atraumatic, Normocephalic. Negative for: Ecchymosis Pupils: Positive for: PERRL Extroacular Muscles: Positive for: EOMI Conjunctiva: Positive for: Normal. Negative for: Injected, Icteric Mouth: Positive for: Moist Mucous Membranes Pharnyx: Positive for: Normal. Negative for: ERYTHEMA Nose (Internal): Positive for: Normal Inspection, No Active Bleeding Neck: Positive for: Normal Range of Motion Respiratory/Chest: Positive for: Respiratory Distress, Other (Intubated. ). Negative for: Tachypneic Cardiovascular: Positive for: Regular Rate and Rhythm, Normal S1, S2 Abdomen: Positive for: Normal Bowel Sounds, Hernias. Negative for: Tenderness, Distention, Peritoneal Signs, Rebound, Guarding Rectal: Positive for: Gross Blood, Melena Genitourinary Male: Positive for: Testicle Tenderness, Hernias, Testicle Swelling, Other (Large [id number] R inguinal hernia: irreducible. 10x5cm L inguinal hernia : irreducible.). Negative for: Normal External Genitalia Upper Extremity: Positive for: Normal Inspection, Edema, Swelling. Negative for : Erythema Lower Extremity: Positive for: Normal Inspection, Edema, Swelling. Negative for : Cyanosis Neurological: Positive for: Other (no withdrawl from pain ) Skin: Positive for: Warm, Dry Psychiatric: Negative for: Alert, Oriented x 3, Normal Insight - Medications Active Medications: Active Medications Generic Name Dose Route Start Last Admin Trade Name Freq PRN Reason Stop Dose Admin Acetaminophen 650 mg 05/17/16 08:33 Tylenol 325mg Tab PO Q4H PRN FEVER, PAIN Albuterol/Ipratropium 3 ml 05/30/16 14:00 06/02/16 13:13 Duoneb 3 Mg/0.5 Mg (3 Ml) Ud IH 3 ml [id number] SHARIF Administration Metronidazole 100 mls @ 100 mls/hr 05/24/16 08:15 06/02/16 05:44 Flagyl IVPB 100 mls/hr Q8 SHARIF Administration Protocol Multivitamins/Vitamin C 10 ml/ 1,011 mls @ 42 mls/hr 06/01/16 18:00 06/01/16 17 :35 Chromium/Copper/Manganese/ IV 06/04/16 17:59 42 mls/hr Zinc 1 ml/ Amino Acids .Q24H SHARIF Administration Potassium Chloride 100 mls @ 50 mls/hr 06/02/16 10:45 06/02/16 12:15 Potassium Chloride 20 Meq/100 Ml IVPB 06/02/16 14:44 50 mls/hr Q2H SHARIF Administration Vancomycin HCl 1 gm/ Dextrose 250 mls @ 166.667 mls/hr 06/02/16 22:00 IVPB Q12 SHARIF Meropenem 1 gm/ Sodium 100 mls @ 100 mls/hr 06/02/16 14:00 Chloride IVPB 06/02/16 22:59 Q8 SHARIF Protocol Fluconazole 200 mls @ 100 mls/hr 06/02/16 13:19 Diflucan Iv 400mg/200ml Ns IVPB 06/02/16 15:18 STAT STA Protocol Insulin Human Lispro 0 units 05/31/16 22:00 06/02/16 10:02 Humalog Med SC Not Given ACHS SHARIF Protocol Methylprednisolone 40 mg 06/01/16 10:00 06/02/16 10:04 Solu-Medrol IVP 40 mg DAILY SHARIF Administration Pantoprazole Sodium 40 mg 06/01/16 10:00 06/02/16 10:03 Protonix Inj IVP 40 mg Q12 SHARIF Administration - Patient Studies Lab Studies: Microbiology Studies 05/31/16 09:30 Gram Stain - Final Sputum Sputum Culture - Final Yeast Species 06/01/16 01:25 Urine Culture - Final UrineRosibel No Growth (<1,000 CFU/ML) 06/01/16 00:50 Blood Culture - Preliminary Blood-Venous NO GROWTH AFTER 24 HOURS 06/01/16 00:47 Blood Culture - Preliminary Blood-Venous NO GROWTH AFTER 24 HOURS 06/01/16 06:00 C. difficile Antigen & Toxin A,B (M - Final Stool Lab Studies 06/02/16 06/02/16 06/02/16 Range/Units 08:30 08:00 05:31 WBC 31.8 H* (4.5-11.0) 10^3/ul RBC 4.28 (3.5-6.1) 10^6/uL Hgb 12.2 L (14.0-18.0) gm/dL Hct 39.6 L (42.0-52.0) % MCV 92.5 (80.0-105.0) fL MCH 28.5 (25.0-35.0) pg MCHC 30.8 L (31.0-37.0) g/dl RDW 19.1 H (11.5-14.5) % Plt Count 283 (120.0-450.0) 10^3/uL MPV 11.6 H (7.0-11.0) fl Gran % 89.8 H (50.0-68.0) % Lymph % (Auto) 5.5 L (22.0-35.0) % [place] % (Auto) 4.6 (1.0-6.0) % Eos % (Auto) 0.0 L (1.5-5.0) % Baso % (Auto) 0.1 (0.0-3.0) % Gran # 28.57 H (1.4-6.5) Lymph # 1.7 (1.2-3.4) [place] # 1.5 H (0.1-0.6) Eos # 0.0 (0.0-0.7) Baso # 0.04 (0.0-2.0) K/mm3 pCO2 47 H (35-45) mm/Hg pO2 76.0 L (80-100) mm/Hg HCO3 32.7 H (21-28) mmol/L ABG pH 7.45 (7.35-7.45) ABG Total CO2 34.1 H (22-28) mmol.L ABG O2 Saturation 97.1 (95-98) % ABG O2 Content 16.2 (15-23) ML/dl ABG Base Excess 7.6 H (-2.0-3.0) mmol/L ABG Hemoglobin 12.1 (11.7-17.4) g/dL ABG Carboxyhemoglobin 1.8 H (0.5-1.5) % POC ABG HHb (Measured) 2.8 (0-5) % ABG Methemoglobin 0.6 (0.0-3.0) % ABG O2 Capacity 16.7 (16-24) mL/dl Hgb O2 Saturation 94.8 L (95.0-98.0) % FiO2 55.0 % Sodium 147 (132-148) mmol/L Potassium 3.5 L (3.6-5.0) mmol/L Chloride 108 H (98-107) mmol/L Carbon Dioxide 36 H (21-33) mmol/L Anion Gap 7 L (10-20) BUN 34 H (7-21) mg/dL Creatinine 0.5 (0.5-1.4) mg/dL Est GFR ( Amer) > 60 Est GFR (Non-Af Amer) > 60 POC Glucose (mg/dL) 126 H (65-110) mg/dL Random Glucose 119 H (70-110) mg/dL Calcium 7.6 L (8.4-10.5) mg/dL Phosphorus 2.1 L (2.5-4.5) mg/dL Magnesium 2.7 H (1.7-2.2) mg/dL Total Bilirubin 0.6 (0.2-1.3) mg/dL AST 49 (15-59) U/L ALT 42 (7-56) U/L Alkaline Phosphatase 85 (38-133) U/L Total Protein 5.3 L (5.8-8.3) g/dL Albumin 2.2 L (3.0-4.8) g/dL Globulin 3.1 gm/dL Albumin/Globulin Ratio 0.7 L (1.1-1.8) Procalcitonin (0.19-0.49) NG/ML Crossmatch 06/02/16 06/01/16 06/01/16 Range/Units 01:11 21:08 16:11 WBC (4.5-11.0) 10^3/ul RBC (3.5-6.1) 10^6/uL Hgb (14.0-18.0) gm/dL Hct (42.0-52.0) % MCV (80.0-105.0) fL MCH (25.0-35.0) pg MCHC (31.0-37.0) g/dl RDW (11.5-14.5) % Plt Count (120.0-450.0) 10^3/uL MPV (7.0-11.0) fl Gran % (50.0-68.0) % Lymph % (Auto) (22.0-35.0) % [place] % (Auto) (1.0-6.0) % Eos % (Auto) (1.5-5.0) % Baso % (Auto) (0.0-3.0) % Gran # (1.4-6.5) Lymph # (1.2-3.4) [place] # (0.1-0.6) Eos # (0.0-0.7) Baso # (0.0-2.0) K/mm3 pCO2 (35-45) mm/Hg pO2 (80-100) mm/Hg HCO3 (21-28) mmol/L ABG pH (7.35-7.45) ABG Total CO2 (22-28) mmol.L ABG O2 Saturation (95-98) % ABG O2 Content (15-23) ML/dl ABG Base Excess (-2.0-3.0) mmol/L ABG Hemoglobin (11.7-17.4) g/dL ABG Carboxyhemoglobin (0.5-1.5) % POC ABG HHb (Measured) (0-5) % ABG Methemoglobin (0.0-3.0) % ABG O2 Capacity (16-24) mL/dl Hgb O2 Saturation (95.0-98.0) % FiO2 % Sodium (132-148) mmol/L Potassium (3.6-5.0) mmol/L Chloride (98-107) mmol/L Carbon Dioxide (21-33) mmol/L Anion Gap (10-20) BUN (7-21) mg/dL Creatinine (0.5-1.4) mg/dL Est GFR ( Amer) Est GFR (Non-Af Amer) POC Glucose (mg/dL) 127 H 131 H 136 H (65-110) mg/dL Random Glucose (70-110) mg/dL Calcium (8.4-10.5) mg/dL Phosphorus (2.5-4.5) mg/dL Magnesium (1.7-2.2) mg/dL Total Bilirubin (0.2-1.3) mg/dL AST (15-59) U/L ALT (7-56) U/L Alkaline Phosphatase (38-133) U/L Total Protein (5.8-8.3) g/dL Albumin (3.0-4.8) g/dL Globulin gm/dL Albumin/Globulin Ratio (1.1-1.8) Procalcitonin (0.19-0.49) NG/ML Crossmatch 06/01/16 06/01/16 06/01/16 Range/Units 12:51 11:02 08:52 WBC (4.5-11.0) 10^3/ul RBC (3.5-6.1) 10^6/uL Hgb (14.0-18.0) gm/dL Hct (42.0-52.0) % MCV (80.0-105.0) fL MCH (25.0-35.0) pg MCHC (31.0-37.0) g/dl RDW (11.5-14.5) % Plt Count (120.0-450.0) 10^3/uL MPV (7.0-11.0) fl Gran % (50.0-68.0) % Lymph % (Auto) (22.0-35.0) % [place] % (Auto) (1.0-6.0) % Eos % (Auto) (1.5-5.0) % Baso % (Auto) (0.0-3.0) % Gran # (1.4-6.5) Lymph # (1.2-3.4) [place] # (0.1-0.6) Eos # (0.0-0.7) Baso # (0.0-2.0) K/mm3 pCO2 (35-45) mm/Hg pO2 (80-100) mm/Hg HCO3 (21-28) mmol/L ABG pH (7.35-7.45) ABG Total CO2 (22-28) mmol.L ABG O2 Saturation (95-98) % ABG O2 Content (15-23) ML/dl ABG Base Excess (-2.0-3.0) mmol/L ABG Hemoglobin (11.7-17.4) g/dL ABG Carboxyhemoglobin (0.5-1.5) % POC ABG HHb (Measured) (0-5) % ABG Methemoglobin (0.0-3.0) % ABG O2 Capacity (16-24) mL/dl Hgb O2 Saturation (95.0-98.0) % FiO2 % Sodium (132-148) mmol/L Potassium (3.6-5.0) mmol/L Chloride (98-107) mmol/L Carbon Dioxide (21-33) mmol/L Anion Gap (10-20) BUN (7-21) mg/dL Creatinine (0.5-1.4) mg/dL Est GFR ( Amer) Est GFR (Non-Af Amer) POC Glucose (mg/dL) 125 H 138 H 106 (65-110) mg/dL Random Glucose (70-110) mg/dL Calcium (8.4-10.5) mg/dL Phosphorus (2.5-4.5) mg/dL Magnesium (1.7-2.2) mg/dL Total Bilirubin (0.2-1.3) mg/dL AST (15-59) U/L ALT (7-56) U/L Alkaline Phosphatase (38-133) U/L Total Protein (5.8-8.3) g/dL Albumin (3.0-4.8) g/dL Globulin gm/dL Albumin/Globulin Ratio (1.1-1.8) Procalcitonin (0.19-0.49) NG/ML Crossmatch 06/01/16 06/01/16 06/01/16 Range/Units 04:58 01:09 00:50 WBC (4.5-11.0) 10^3/ul RBC (3.5-6.1) 10^6/uL Hgb (14.0-18.0) gm/dL Hct (42.0-52.0) % MCV (80.0-105.0) fL MCH (25.0-35.0) pg MCHC (31.0-37.0) g/dl RDW (11.5-14.5) % Plt Count (120.0-450.0) 10^3/uL MPV (7.0-11.0) fl Gran % (50.0-68.0) % Lymph % (Auto) (22.0-35.0) % [place] % (Auto) (1.0-6.0) % Eos % (Auto) (1.5-5.0) % Baso % (Auto) (0.0-3.0) % Gran # (1.4-6.5) Lymph # (1.2-3.4) [place] # (0.1-0.6) Eos # (0.0-0.7) Baso # (0.0-2.0) K/mm3 pCO2 (35-45) mm/Hg pO2 (80-100) mm/Hg HCO3 (21-28) mmol/L ABG pH (7.35-7.45) ABG Total CO2 (22-28) mmol.L ABG O2 Saturation (95-98) % ABG O2 Content (15-23) ML/dl ABG Base Excess (-2.0-3.0) mmol/L ABG Hemoglobin (11.7-17.4) g/dL ABG Carboxyhemoglobin (0.5-1.5) % POC ABG HHb (Measured) (0-5) % ABG Methemoglobin (0.0-3.0) % ABG O2 Capacity (16-24) mL/dl Hgb O2 Saturation (95.0-98.0) % FiO2 % Sodium (132-148) mmol/L Potassium (3.6-5.0) mmol/L Chloride (98-107) mmol/L Carbon Dioxide (21-33) mmol/L Anion Gap (10-20) BUN (7-21) mg/dL Creatinine (0.5-1.4) mg/dL Est GFR ( Amer) Est GFR (Non-Af Amer) POC Glucose (mg/dL) 217 H 164 H (65-110) mg/dL Random Glucose (70-110) mg/dL Calcium (8.4-10.5) mg/dL Phosphorus (2.5-4.5) mg/dL Magnesium (1.7-2.2) mg/dL Total Bilirubin (0.2-1.3) mg/dL AST (15-59) U/L ALT (7-56) U/L Alkaline Phosphatase (38-133) U/L Total Protein (5.8-8.3) g/dL Albumin (3.0-4.8) g/dL Globulin gm/dL Albumin/Globulin Ratio (1.1-1.8) Procalcitonin 1.61 H (0.19-0.49) NG/ML Crossmatch 05/31/16 05/31/16 05/31/16 Range/Units 21:17 16:58 12:53 WBC (4.5-11.0) 10^3/ul RBC (3.5-6.1) 10^6/uL Hgb (14.0-18.0) gm/dL Hct (42.0-52.0) % MCV (80.0-105.0) fL MCH (25.0-35.0) pg MCHC (31.0-37.0) g/dl RDW (11.5-14.5) % Plt Count (120.0-450.0) 10^3/uL MPV (7.0-11.0) fl Gran % (50.0-68.0) % Lymph % (Auto) (22.0-35.0) % [place] % (Auto) (1.0-6.0) % Eos % (Auto) (1.5-5.0) % Baso % (Auto) (0.0-3.0) % Gran # (1.4-6.5) Lymph # (1.2-3.4) [place] # (0.1-0.6) Eos # (0.0-0.7) Baso # (0.0-2.0) K/mm3 pCO2 (35-45) mm/Hg pO2 (80-100) mm/Hg HCO3 (21-28) mmol/L ABG pH (7.35-7.45) ABG Total CO2 (22-28) mmol.L ABG O2 Saturation (95-98) % ABG O2 Content (15-23) ML/dl ABG Base Excess (-2.0-3.0) mmol/L ABG Hemoglobin (11.7-17.4) g/dL ABG Carboxyhemoglobin (0.5-1.5) % POC ABG HHb (Measured) (0-5) % ABG Methemoglobin (0.0-3.0) % ABG O2 Capacity (16-24) mL/dl Hgb O2 Saturation (95.0-98.0) % FiO2 % Sodium (132-148) mmol/L Potassium (3.6-5.0) mmol/L Chloride (98-107) mmol/L Carbon Dioxide (21-33) mmol/L Anion Gap (10-20) BUN (7-21) mg/dL Creatinine (0.5-1.4) mg/dL Est GFR ( Amer) Est GFR (Non-Af Amer) POC Glucose (mg/dL) 198 H 193 H 149 H (65-110) mg/dL Random Glucose (70-110) mg/dL Calcium (8.4-10.5) mg/dL Phosphorus (2.5-4.5) mg/dL Magnesium (1.7-2.2) mg/dL Total Bilirubin (0.2-1.3) mg/dL AST (15-59) U/L ALT (7-56) U/L Alkaline Phosphatase (38-133) U/L Total Protein (5.8-8.3) g/dL Albumin (3.0-4.8) g/dL Globulin gm/dL Albumin/Globulin Ratio (1.1-1.8) Procalcitonin (0.19-0.49) NG/ML Crossmatch 05/31/16 05/31/16 05/31/16 Range/Units 11:35 05:27 01:39 WBC (4.5-11.0) 10^3/ul RBC (3.5-6.1) 10^6/uL Hgb (14.0-18.0) gm/dL Hct (42.0-52.0) % MCV (80.0-105.0) fL MCH (25.0-35.0) pg MCHC (31.0-37.0) g/dl RDW (11.5-14.5) % Plt Count (120.0-450.0) 10^3/uL MPV (7.0-11.0) fl Gran % (50.0-68.0) % Lymph % (Auto) (22.0-35.0) % [place] % (Auto) (1.0-6.0) % Eos % (Auto) (1.5-5.0) % Baso % (Auto) (0.0-3.0) % Gran # (1.4-6.5) Lymph # (1.2-3.4) [place] # (0.1-0.6) Eos # (0.0-0.7) Baso # (0.0-2.0) K/mm3 pCO2 (35-45) mm/Hg pO2 (80-100) mm/Hg HCO3 (21-28) mmol/L ABG pH (7.35-7.45) ABG Total CO2 (22-28) mmol.L ABG O2 Saturation (95-98) % ABG O2 Content (15-23) ML/dl ABG Base Excess (-2.0-3.0) mmol/L ABG Hemoglobin (11.7-17.4) g/dL ABG Carboxyhemoglobin (0.5-1.5) % POC ABG HHb (Measured) (0-5) % ABG Methemoglobin (0.0-3.0) % ABG O2 Capacity (16-24) mL/dl Hgb O2 Saturation (95.0-98.0) % FiO2 % Sodium (132-148) mmol/L Potassium (3.6-5.0) mmol/L Chloride (98-107) mmol/L Carbon Dioxide (21-33) mmol/L Anion Gap (10-20) BUN (7-21) mg/dL Creatinine (0.5-1.4) mg/dL Est GFR ( Amer) Est GFR (Non-Af Amer) POC Glucose (mg/dL) 146 H 141 H 140 H (65-110) mg/dL Random Glucose (70-110) mg/dL Calcium (8.4-10.5) mg/dL Phosphorus (2.5-4.5) mg/dL Magnesium (1.7-2.2) mg/dL Total Bilirubin (0.2-1.3) mg/dL AST (15-59) U/L ALT (7-56) U/L Alkaline Phosphatase (38-133) U/L Total Protein (5.8-8.3) g/dL Albumin (3.0-4.8) g/dL Globulin gm/dL Albumin/Globulin Ratio (1.1-1.8) Procalcitonin (0.19-0.49) NG/ML Crossmatch 05/30/16 05/30/16 05/30/16 Range/Units 22:19 17:19 11:53 WBC (4.5-11.0) 10^3/ul RBC (3.5-6.1) 10^6/uL Hgb (14.0-18.0) gm/dL Hct (42.0-52.0) % MCV (80.0-105.0) fL MCH (25.0-35.0) pg MCHC (31.0-37.0) g/dl RDW (11.5-14.5) % Plt Count (120.0-450.0) 10^3/uL MPV (7.0-11.0) fl Gran % (50.0-68.0) % Lymph % (Auto) (22.0-35.0) % [place] % (Auto) (1.0-6.0) % Eos % (Auto) (1.5-5.0) % Baso % (Auto) (0.0-3.0) % Gran # (1.4-6.5) Lymph # (1.2-3.4) [place] # (0.1-0.6) Eos # (0.0-0.7) Baso # (0.0-2.0) K/mm3 pCO2 (35-45) mm/Hg pO2 (80-100) mm/Hg HCO3 (21-28) mmol/L ABG pH (7.35-7.45) ABG Total CO2 (22-28) mmol.L ABG O2 Saturation (95-98) % ABG O2 Content (15-23) ML/dl ABG Base Excess (-2.0-3.0) mmol/L ABG Hemoglobin (11.7-17.4) g/dL ABG Carboxyhemoglobin (0.5-1.5) % POC ABG HHb (Measured) (0-5) % ABG Methemoglobin (0.0-3.0) % ABG O2 Capacity (16-24) mL/dl Hgb O2 Saturation (95.0-98.0) % FiO2 % Sodium (132-148) mmol/L Potassium (3.6-5.0) mmol/L Chloride (98-107) mmol/L Carbon Dioxide (21-33) mmol/L Anion Gap (10-20) BUN (7-21) mg/dL Creatinine (0.5-1.4) mg/dL Est GFR ( Amer) Est GFR (Non-Af Amer) POC Glucose (mg/dL) 135 H 109 93 (65-110) mg/dL Random Glucose (70-110) mg/dL Calcium (8.4-10.5) mg/dL Phosphorus (2.5-4.5) mg/dL Magnesium (1.7-2.2) mg/dL Total Bilirubin (0.2-1.3) mg/dL AST (15-59) U/L ALT (7-56) U/L Alkaline Phosphatase (38-133) U/L Total Protein (5.8-8.3) g/dL Albumin (3.0-4.8) g/dL Globulin gm/dL Albumin/Globulin Ratio (1.1-1.8) Procalcitonin (0.19-0.49) NG/ML Crossmatch 05/30/16 05/30/16 05/29/16 Range/Units 08:48 04:48 20:56 WBC (4.5-11.0) 10^3/ul RBC (3.5-6.1) 10^6/uL Hgb (14.0-18.0) gm/dL Hct (42.0-52.0) % MCV (80.0-105.0) fL MCH (25.0-35.0) pg MCHC (31.0-37.0) g/dl RDW (11.5-14.5) % Plt Count (120.0-450.0) 10^3/uL MPV (7.0-11.0) fl Gran % (50.0-68.0) % Lymph % (Auto) (22.0-35.0) % [place] % (Auto) (1.0-6.0) % Eos % (Auto) (1.5-5.0) % Baso % (Auto) (0.0-3.0) % Gran # (1.4-6.5) Lymph # (1.2-3.4) [place] # (0.1-0.6) Eos # (0.0-0.7) Baso # (0.0-2.0) K/mm3 pCO2 (35-45) mm/Hg pO2 (80-100) mm/Hg HCO3 (21-28) mmol/L ABG pH (7.35-7.45) ABG Total CO2 (22-28) mmol.L ABG O2 Saturation (95-98) % ABG O2 Content (15-23) ML/dl ABG Base Excess (-2.0-3.0) mmol/L ABG Hemoglobin (11.7-17.4) g/dL ABG Carboxyhemoglobin (0.5-1.5) % POC ABG HHb (Measured) (0-5) % ABG Methemoglobin (0.0-3.0) % ABG O2 Capacity (16-24) mL/dl Hgb O2 Saturation (95.0-98.0) % FiO2 % Sodium (132-148) mmol/L Potassium (3.6-5.0) mmol/L Chloride (98-107) mmol/L Carbon Dioxide (21-33) mmol/L Anion Gap (10-20) BUN (7-21) mg/dL Creatinine (0.5-1.4) mg/dL Est GFR ( Amer) Est GFR (Non-Af Amer) POC Glucose (mg/dL) 99 88 94 (65-110) mg/dL Random Glucose (70-110) mg/dL Calcium (8.4-10.5) mg/dL Phosphorus (2.5-4.5) mg/dL Magnesium (1.7-2.2) mg/dL Total Bilirubin (0.2-1.3) mg/dL AST (15-59) U/L ALT (7-56) U/L Alkaline Phosphatase (38-133) U/L Total Protein (5.8-8.3) g/dL Albumin (3.0-4.8) g/dL Globulin gm/dL Albumin/Globulin Ratio (1.1-1.8) Procalcitonin (0.19-0.49) NG/ML Crossmatch 05/26/16 Range/Units 11:30 WBC (4.5-11.0) 10^3/ul RBC (3.5-6.1) 10^6/uL Hgb (14.0-18.0) gm/dL Hct (42.0-52.0) % MCV (80.0-105.0) fL MCH (25.0-35.0) pg MCHC (31.0-37.0) g/dl RDW (11.5-14.5) % Plt Count (120.0-450.0) 10^3/uL MPV (7.0-11.0) fl Gran % (50.0-68.0) % Lymph % (Auto) (22.0-35.0) % [place] % (Auto) (1.0-6.0) % Eos % (Auto) (1.5-5.0) % Baso % (Auto) (0.0-3.0) % Gran # (1.4-6.5) Lymph # (1.2-3.4) [place] # (0.1-0.6) Eos # (0.0-0.7) Baso # (0.0-2.0) K/mm3 pCO2 (35-45) mm/Hg pO2 (80-100) mm/Hg HCO3 (21-28) mmol/L ABG pH (7.35-7.45) ABG Total CO2 (22-28) mmol.L ABG O2 Saturation (95-98) % ABG O2 Content (15-23) ML/dl ABG Base Excess (-2.0-3.0) mmol/L ABG Hemoglobin (11.7-17.4) g/dL ABG Carboxyhemoglobin (0.5-1.5) % POC ABG HHb (Measured) (0-5) % ABG Methemoglobin (0.0-3.0) % ABG O2 Capacity (16-24) mL/dl Hgb O2 Saturation (95.0-98.0) % FiO2 % Sodium (132-148) mmol/L Potassium (3.6-5.0) mmol/L Chloride (98-107) mmol/L Carbon Dioxide (21-33) mmol/L Anion Gap (10-20) BUN (7-21) mg/dL Creatinine (0.5-1.4) mg/dL Est GFR ( Amer) Est GFR (Non-Af Amer) POC Glucose (mg/dL) (65-110) mg/dL Random Glucose (70-110) mg/dL Calcium (8.4-10.5) mg/dL Phosphorus (2.5-4.5) mg/dL Magnesium (1.7-2.2) mg/dL Total Bilirubin (0.2-1.3) mg/dL AST (15-59) U/L ALT (7-56) U/L Alkaline Phosphatase (38-133) U/L Total Protein (5.8-8.3) g/dL Albumin (3.0-4.8) g/dL Globulin gm/dL Albumin/Globulin Ratio (1.1-1.8) Procalcitonin (0.19-0.49) NG/ML Crossmatch See Detail Laboratory Results - last 24 hr 05/26/16 05/29/16 05/30/16 11:30 20:56 04:48 WBC RBC Hgb Hct MCV MCH MCHC RDW Plt Count MPV Gran % Lymph % (Auto) [place] % (Auto) Eos % (Auto) Baso % (Auto) Gran # Lymph # [place] # Eos # Baso # pCO2 pO2 HCO3 ABG pH ABG Total CO2 ABG O2 Saturation ABG O2 Content ABG Base Excess ABG Hemoglobin ABG Carboxyhemoglobin POC ABG HHb (Measured) ABG Methemoglobin ABG O2 Capacity Hgb O2 Saturation FiO2 Sodium Potassium Chloride Carbon Dioxide Anion Gap BUN Creatinine Est GFR ( Amer) Est GFR (Non-Af Amer) POC Glucose (mg/dL) 94 88 Random Glucose Calcium Phosphorus Magnesium Total Bilirubin AST ALT Alkaline Phosphatase Total Protein Albumin Globulin Albumin/Globulin Ratio Procalcitonin Crossmatch See Detail 05/30/16 05/30/1605/30/17 08:48 11:53 17:19 WBC RBC Hgb Hct MCV MCH MCHC RDW Plt Count MPV Gran % Lymph % (Auto) [place] % (Auto) Eos % (Auto) Baso % (Auto) Gran # Lymph # [place] # Eos # Baso # pCO2 pO2 HCO3 ABG pH ABG Total CO2 ABG O2 Saturation ABG O2 Content ABG Base Excess ABG Hemoglobin ABG Carboxyhemoglobin POC ABG HHb (Measured) ABG Methemoglobin ABG O2 Capacity Hgb O2 Saturation FiO2 Sodium Potassium Chloride Carbon Dioxide Anion Gap BUN Creatinine Est GFR ( Amer) Est GFR (Non-Af Amer) POC Glucose (mg/dL) 99 93 109 Random Glucose Calcium Phosphorus Magnesium Total Bilirubin AST ALT Alkaline Phosphatase Total Protein Albumin Globulin Albumin/Globulin Ratio Procalcitonin Crossmatch 05/30/16 05/31/16 05/31/16 22:19 01:39 05:27 WBC RBC Hgb Hct MCV MCH MCHC RDW Plt Count MPV Gran % Lymph % (Auto) [place] % (Auto) Eos % (Auto) Baso % (Auto) Gran # Lymph # [place] # Eos # Baso # pCO2 pO2 HCO3 ABG pH ABG Total CO2 ABG O2 Saturation ABG O2 Content ABG Base Excess ABG Hemoglobin ABG Carboxyhemoglobin POC ABG HHb (Measured) ABG Methemoglobin ABG O2 Capacity Hgb O2 Saturation FiO2 Sodium Potassium Chloride Carbon Dioxide Anion Gap BUN Creatinine Est GFR ( Amer) Est GFR (Non-Af Amer) POC Glucose (mg/dL) 135 H 140 H 141 H Random Glucose Calcium Phosphorus Magnesium Total Bilirubin AST ALT Alkaline Phosphatase Total Protein Albumin Globulin Albumin/Globulin Ratio Procalcitonin Crossmatch 05/31/16 05/31/16 05/31/16 11:35 12:53 16:58 WBC RBC Hgb Hct MCV MCH MCHC RDW Plt Count MPV Gran % Lymph % (Auto) [place] % (Auto) Eos % (Auto) Baso % (Auto) Gran # Lymph # [place] # Eos # Baso # pCO2 pO2 HCO3 ABG pH ABG Total CO2 ABG O2 Saturation ABG O2 Content ABG Base Excess ABG Hemoglobin ABG Carboxyhemoglobin POC ABG HHb (Measured) ABG Methemoglobin ABG O2 Capacity Hgb O2 Saturation FiO2 Sodium Potassium Chloride Carbon Dioxide Anion Gap BUN Creatinine Est GFR ( Amer) Est GFR (Non-Af Amer) POC Glucose (mg/dL) 146 H 149 H 193 H Random Glucose Calcium Phosphorus Magnesium Total Bilirubin AST ALT Alkaline Phosphatase Total Protein Albumin Globulin Albumin/Globulin Ratio Procalcitonin Crossmatch 05/31/16 06/01/16 06/01/16 21:17 00:50 01:09 WBC RBC Hgb Hct MCV MCH MCHC RDW Plt Count MPV Gran % Lymph % (Auto) [place] % (Auto) Eos % (Auto) Baso % (Auto) Gran # Lymph # [place] # Eos # Baso # pCO2 pO2 HCO3 ABG pH ABG Total CO2 ABG O2 Saturation ABG O2 Content ABG Base Excess ABG Hemoglobin ABG Carboxyhemoglobin POC ABG HHb (Measured) ABG Methemoglobin ABG O2 Capacity Hgb O2 Saturation FiO2 Sodium Potassium Chloride Carbon Dioxide Anion Gap BUN Creatinine Est GFR ( Amer) Est GFR (Non-Af Amer) POC Glucose (mg/dL) 198 H 164 H Random Glucose Calcium Phosphorus Magnesium Total Bilirubin AST ALT Alkaline Phosphatase Total Protein Albumin Globulin Albumin/Globulin Ratio Procalcitonin 1.61 H Crossmatch 06/01/16 06/01/16 06/01/16 04:58 08:52 11:02 WBC RBC Hgb Hct MCV MCH MCHC RDW Plt Count MPV Gran % Lymph % (Auto) [place] % (Auto) Eos % (Auto) Baso % (Auto) Gran # Lymph # [place] # Eos # Baso # pCO2 pO2 HCO3 ABG pH ABG Total CO2 ABG O2 Saturation ABG O2 Content ABG Base Excess ABG Hemoglobin ABG Carboxyhemoglobin POC ABG HHb (Measured) ABG Methemoglobin ABG O2 Capacity Hgb O2 Saturation FiO2 Sodium Potassium Chloride Carbon Dioxide Anion Gap BUN Creatinine Est GFR ( Amer) Est GFR (Non-Af Amer) POC Glucose (mg/dL) 217 H 106 138 H Random Glucose Calcium Phosphorus Magnesium Total Bilirubin AST ALT Alkaline Phosphatase Total Protein Albumin Globulin Albumin/Globulin Ratio Procalcitonin Crossmatch 06/01/16 06/01/16 06/01/16 12:51 16:11 21:08 WBC RBC Hgb Hct MCV MCH MCHC RDW Plt Count MPV Gran % Lymph % (Auto) [place] % (Auto) Eos % (Auto) Baso % (Auto) Gran # Lymph # [place] # Eos # Baso # pCO2 pO2 HCO3 ABG pH ABG Total CO2 ABG O2 Saturation ABG O2 Content ABG Base Excess ABG Hemoglobin ABG Carboxyhemoglobin POC ABG HHb (Measured) ABG Methemoglobin ABG O2 Capacity Hgb O2 Saturation FiO2 Sodium Potassium Chloride Carbon Dioxide Anion Gap BUN Creatinine Est GFR ( Amer) Est GFR (Non-Af Amer) POC Glucose (mg/dL) 125 H 136 H 131 H Random Glucose Calcium Phosphorus Magnesium Total Bilirubin AST ALT Alkaline Phosphatase Total Protein Albumin Globulin Albumin/Globulin Ratio Procalcitonin Crossmatch 06/02/16 06/02/16 06/02/16 01:11 05:31 08:00 WBC 31.8 H* RBC 4.28 Hgb 12.2 L Hct 39.6 L MCV 92.5 MCH 28.5 MCHC 30.8 L RDW 19.1 H Plt Count 283 MPV 11.6 H Gran % 89.8 H Lymph % (Auto) 5.5 L [place] % (Auto) 4.6 Eos % (Auto) 0.0 L Baso % (Auto) 0.1 Gran # 28.57 H Lymph # 1.7 [place] # 1.5 H Eos # 0.0 Baso # 0.04 pCO2 pO2 HCO3 ABG pH ABG Total CO2 ABG O2 Saturation ABG O2 Content ABG Base Excess ABG Hemoglobin ABG Carboxyhemoglobin POC ABG HHb (Measured) ABG Methemoglobin ABG O2 Capacity Hgb O2 Saturation FiO2 Sodium 147 Potassium 3.5 L Chloride 108 H Carbon Dioxide 36 H Anion Gap 7 L BUN 34 H Creatinine 0.5 Est GFR ( Amer) > 60 Est GFR (Non-Af Amer) > 60 POC Glucose (mg/dL) 127 H 126 H Random Glucose 119 H Calcium 7.6 L Phosphorus 2.1 L Magnesium 2.7 H Total Bilirubin 0.6 AST 49 ALT 42 Alkaline Phosphatase 85 Total Protein 5.3 L Albumin 2.2 L Globulin 3.1 Albumin/Globulin Ratio 0.7 L Procalcitonin Crossmatch 06/02/16 08:30 WBC RBC Hgb Hct MCV MCH MCHC RDW Plt Count MPV Gran % Lymph % (Auto) [place] % (Auto) Eos % (Auto) Baso % (Auto) Gran # Lymph # [place] # Eos # Baso # pCO2 47 H pO2 76.0 L HCO3 32.7 H ABG pH 7.45 ABG Total CO2 34.1 H ABG O2 Saturation 97.1 ABG O2 Content 16.2 ABG Base Excess 7.6 H ABG Hemoglobin 12.1 ABG Carboxyhemoglobin 1.8 H POC ABG HHb (Measured) 2.8 ABG Methemoglobin 0.6 ABG O2 Capacity 16.7 Hgb O2 Saturation 94.8 L FiO2 55.0 Sodium Potassium Chloride Carbon Dioxide Anion Gap BUN Creatinine Est GFR ( Amer) Est GFR (Non-Af Amer) POC Glucose (mg/dL) Random Glucose Calcium Phosphorus Magnesium Total Bilirubin AST ALT Alkaline Phosphatase Total Protein Albumin Globulin Albumin/Globulin Ratio Procalcitonin Crossmatch Fingerstick Blood Sugar Results: 126 Critical Care Progress Note - Ventilator Checklist Daily Sedation Vacation: Yes Daily Assessment of Readiness to Wean: Yes Daily Spontaneous Breathing Trial: Yes PUD Prophalyxis: Yes DVT Prophylaxis: Yes - Vent Settings MODE:: ASSIST CONTROL - Extremities/Vascular Does the Patient have a Central Venous Catheter?: Yes Insertion Site: Internal Jugular Vein - Nutrition Nutrition: Nutrition Category Date Time Status NPO Diet [DIET] Diets 05/26/16 Breakfast Ordered Assessment/Plan - Assessment and Plan (Free Text) Assessment: 85 y/o M w/ Presumed metabolic encephalopathy S/P colectomy and subsequent g.i bleed and respiratory failure S/P massive transfusion and hemodynamic stability . Currently off all vasopressors MAp>65 Elevated WBC for 7 days, w/o a source . CT abd /pelvis done without any acute findings . CX pending with empiric abx on board , Vanc, Meropenum and Flagyl Mental status not improved since intubation and ARDS, EEg shows slowing but + gag, respiratory centers and + Dolls eye present . PCP and paliative care team is working on finding a POA to decide on ultimate prognosis and management during this critical state. We will continue to support the patient during this time. cc time 65 min
--- NOTE | 2016-06-02 13:51 | CP.PCM.PN ---
Subjective - Date & Time of Evaluation Date of Evaluation: 06/02/16 Time of Evaluation: 13:48 - Subjective Subjective: Surgery: Dr. Peterson Pt seen and examined. Per nursing no acute events overnight. Pt had 2 black BMs overnight. Remains intubated. Unresponsive to stimuli. Objective - Vital Signs/Intake and Output Vital Signs (last 24 hours): Temp Pulse Resp BP Pulse Ox 97.4 F L 111 H 29 H 162/72 H 81 L 06/02/16 08:00 06/02/16 10:00 05/31/16 18:00 06/02/16 11:58 06/02/16 10:00 Intake and Output: 06/02/16 06/02/16 06:59 18:59 Intake Total 1054 Output Total 825 Balance 229 - Medications Medications: Current Medications Acetaminophen (Tylenol 325mg Tab) 650 mg PO Q4H PRN PRN Reason: FEVER, PAIN Albuterol/Ipratropium (Duoneb 3 Mg/0.5 Mg (3 Ml) Ud) 3 ml IH [id number] [facility] Last Admin: 06/02/16 13:13 Dose: 3 ml Metronidazole (Flagyl) 100 mls @ 100 mls/hr IVPB Q8 [facility] PRN Reason: Protocol Last Admin: 06/02/16 05:44 Dose: 100 mls/hr Multivitamins/Vitamin C 10 ml/Chromium/Copper/Manganese/Zinc 1 ml/ Amino Acids 1,011 mls @ 42 mls/hr IV .Q24H [facility] Stop: 06/04/16 17:59 Last Admin: 06/01/16 17:35 Dose: 42 mls/hr Potassium Chloride (Potassium Chloride 20 Meq/100 Ml) 100 mls @ 50 mls/hr IVPB Q2H [facility] Stop: 06/02/16 14:44 Last Admin: 06/02/16 12:15 Dose: 50 mls/hr Vancomycin HCl 1 gm/ Dextrose 250 mls @ 166.667 mls/hr IVPB Q12 [facility] Meropenem 1 gm/ Sodium (Chloride) 100 mls @ 100 mls/hr IVPB Q8 [facility] PRN Reason: Protocol Stop: 06/02/16 22:59 Fluconazole (Diflucan Iv 400mg/200ml Ns) 200 mls @ 100 mls/hr IVPB STAT STA PRN Reason: Protocol Stop: 06/02/16 15:18 Insulin Human Lispro (Humalog Med) 0 units SC ACHS [facility] PRN Reason: Protocol Last Admin: 06/02/16 10:02 Dose: Not Given Methylprednisolone (Solu-Medrol) 40 mg IVP DAILY [facility] Last Admin: 06/02/16 10:04 Dose: 40 mg Pantoprazole Sodium (Protonix Inj) 40 mg IVP Q12 [facility] Last Admin: 06/02/16 10:03 Dose: 40 mg - Labs Labs: 06/02/16 08:00 06/02/16 08:00 PT 16.7 Seconds (9.9-11.8) H 05/27/16 17:35 INR 1.55 (0.93-1.08) H 05/27/16 17:35 APTT 28.1 Seconds (23.7-30.8) 05/27/16 17:35 - Constitutional Appears: No Acute Distress, Chronically Ill - Head Exam Head Exam: ATRAUMATIC, NORMOCEPHALIC - ENT Exam ENT Exam: Mucous Membranes Moist, Normal External Ear Exam Additional comments: OGT in place - Respiratory Exam Additional comments: intubated - GI/Abdominal Exam GI & Abdominal Exam: Soft. absent: Distended, Firm, Guarding, Rigid, Tenderness Additional comments: Midline incision C/D/I w. fabiana Large B/L inguinal hernias, these have been reduced several times in the past - Extremities Exam Additional comments: Edema in extremities x4 - Neurological Exam Neurological Exam: absent: Alert, Awake Assessment and Plan - Assessment and Plan (Free Text) Assessment: 85M w. B/L inguinal hernias and cecal mass, s/p ex-lap w. R hemicolectomy, POD# 12, complicated by GI bleed which is resolved -GI bleed likely from anastomosis site -H/H stable, continue to monitor, transfuse PRN -CT from 06/01/16 reviewed, no intra-abdominal abscess, no signs of obstruction -minimal OGT output -Ok to start enteral tube feeds from surgical standpoint -persistent leukocytosis, c/w abx -surgery has been asked for trach placement, however pt does not have POA -several attempts have been made through out hospital course to contact family, Servando Potter [phone], these attempts have been unsuccessful, per review of charts, ethics comittee has been contacted -will continue to follow closely and plan for trach accordingly -d/w attending Mily PGY2
--- NOTE | 2016-06-02 14:13 | PN ---
DATE: 06/02/2016 Seen and examined at the bedside earlier today. The patient was reported to have black greenish pablo y stool this morning. Otherwise, no acute overnight events. VITAL SIGNS: Temperature is 97.4, blood pressure is 162/72, pulse 111. LABORATORIES: Today, WBC is 31.8, H and H is 12.2 and 39.6 hematocrit, platelets is 283. Chem: Sod ium 147, K 3.5, BUN 34, creatinine 0.5. LFTs are within normal limits. The patient had a CT scan of the chest, abdomen and pelvis and it shows multifocal pulmonary consolid ation. There is ground glass opacities in both upper lobes including lingular segments of the left u pper lobe, likely infectious or inflammatory. There are small bilateral pleural effusions, bilateral inguinal hernias, mucosal thickening of multiple loops of small bowel in the right inguinal hernia s ac, no bowel obstruction, nonobstructive left colon in the left inguinal hernia sac. There is bilate ral hydrocele, right greater than left, trace ascites partial right hemicolectomy and suspected sigmoidectomy. Chest x-ray was also done this morning, which shows multifocal pneumonia in the right upper lobe and left lower lobe, superimposed on COPD. PHYSICAL EXAMINATION: HEENT: Sclerae anicteric. The patient is intubated. NECK: Supple. CARDIAC: S1, S2. LUNG SOUNDS: With decreased breath sounds, but good air entry. ABDOMEN: With bowel sounds. It is soft. His fabiana are dry and intact. GENITALIA: Scrotum, groin is edematous with hernia. He has a large inguinal scrotal hernia. ASSESSMENT: An 85-year-old male with history of inguinal hernia and cecal mass, status post right he micolectomy with postop complications of gastrointestinal bleeding, which may be from the anastomotic area, inguinal hernia was not repaired. He had a CT scan, status post CT scan, which is not showing any obstruction. 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 PLAN: His hemoglobin has been stable. He is on IV antibiotics, Flagyl. He is on vancomycin and he is going to be started on fluconazole. He is on Solu-Medrol, PPN. Continue GI prophylaxis, Protonix , and he is getting potassium replacement. As per ID, oncology, surgery, cardiology. The patient was seen and case discussed with Dr. Luna. Henrietta KIRBY cc: [phone] TT: 06/02/2016 14:12:54 Confirmation # [id number] Dictation # [id number]
[2016-06-02] MEDS: Meropenem 1 GM in Sodium Chloride 0.9% 100 ML IVPB SCH ×2 (15:00→22:00)
[2016-06-02] MEDS: Dexmedetomidine HCl 4mcg/ml 100 ML IV PRN ×2 (16:00→18:11)
--- NOTE | 2016-06-02 16:40 | CP.PCM.PN ---
Subjective - Date & Time of Evaluation Date of Evaluation: 06/02/16 Time of Evaluation: 15:00 - Subjective Subjective: Infectious Disease Follow Up: June 02, 2016 85 yo male with initial presentation for abdominal pain and abnormal CT scan sent from [facility] facility (I think [facility] [place]). 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 Currently the patient appears comfortable. He is unable to give any relevant information due to a severe developmental delay. Patient is currently post-operative day #9 and has been displaying increased leukocytosis since the surgery. Patient himself is intubated and ventilated. He was brought to MICU and remain here since. He required intubation and ventilation. Signs of aspiration pneumonia. On meropenem for now. Persistent leukocytosis. Patient in critical condition. Right IJ placed by MICU team. Case discussed with Dr. Pringle and Dr. Molina. The patient is on Meropenem and Flagyl for antibiotic coverage. Leukocytosis remains elevated at 29.6 today. Patient remains in critical condition but seems to have no further deterioration. Patient did receive 6 U of PRBCs, 4 U of FFP, and 1 U of platelets during the first 24 hours in ICU. Surgery has asked for a C. diff study which is negative. Melena and blood clots from rectum have slowed down considerably. Patient has an extremely poor prognosis. 2 episode of black stools in the past 24 hours. There has been no improvement of the patient's mental status over the past few days. Currently off pressors and sedation. Poorly responsive. Very poor prognosis. Remains intubated and ventilated. Objective - Vital Signs/Intake and Output Vital Signs (last 24 hours): Temp Pulse Resp BP Pulse Ox 97.4 F L 111 H 29 H 162/72 H 81 L 06/02/16 08:00 06/02/16 10:00 05/31/16 18:00 06/02/16 11:58 06/02/16 10:00 Intake and Output: 06/02/16 06/02/16 06:59 18:59 Intake Total 1054 Output Total 825 Balance 229 - Medications Medications: Current Medications Acetaminophen (Tylenol 325mg Tab) 650 mg PO Q4H PRN PRN Reason: FEVER, PAIN Albuterol/Ipratropium (Duoneb 3 Mg/0.5 Mg (3 Ml) Ud) 3 ml IH [id number] [facility] Last Admin: 06/02/16 13:13 Dose: 3 ml Metronidazole (Flagyl) 100 mls @ 100 mls/hr IVPB Q8 [facility] PRN Reason: Protocol Last Admin: 06/02/16 15:47 Dose: 100 mls/hr Multivitamins/Vitamin C 10 ml/Chromium/Copper/Manganese/Zinc 1 ml/ Amino Acids 1,011 mls @ 42 mls/hr IV .Q24H [facility] Stop: 06/04/16 17:59 Last Admin: 06/01/16 17:35 Dose: 42 mls/hr Vancomycin HCl 1 gm/ Dextrose 250 mls @ 166.667 mls/hr IVPB Q12 [facility] Meropenem 1 gm/ Sodium (Chloride) 100 mls @ 100 mls/hr IVPB Q8 [facility] PRN Reason: Protocol Stop: 06/02/16 22:59 Last Admin: 06/02/16 15:00 Dose: 100 mls/hr Dexmedetomidine HCl (Precedex 4 Mcg/Ml (100 Ml)) 100 mls @ 3.645 mls/hr IV .Q24H PRN; Protocol; 0.2 MCG/KG/HR PRN Reason: Agitation Insulin Human Lispro (Humalog Med) 0 units SC ACHS [facility] PRN Reason: Protocol Last Admin: 06/02/16 10:02 Dose: Not Given Methylprednisolone (Solu-Medrol) 40 mg IVP DAILY [facility] Last Admin: 06/02/16 10:04 Dose: 40 mg Pantoprazole Sodium (Protonix Inj) 40 mg IVP Q12 [facility] Last Admin: 06/02/16 10:03 Dose: 40 mg - Labs Labs: 06/02/16 08:00 06/02/16 08:00 PT 16.7 Seconds (9.9-11.8) H 05/27/16 17:35 INR 1.55 (0.93-1.08) H 05/27/16 17:35 APTT 28.1 Seconds (23.7-30.8) 05/27/16 17:35 - Constitutional Appears: Chronically Ill - Head Exam Additional comments: intubated and ventilated - Eye Exam Eye Exam: EOMI, PERRL Pupil Exam: NORMAL ACCOMODATION, PERRL - ENT Exam ENT Exam: Mucous Membranes Moist, Normal External Ear Exam, TM's Normal Bilaterally Additional comments: intubated and ventilated - Neck Exam Additional comments: intubated and ventilated - Respiratory Exam Respiratory Exam: Clear to Ausculation Bilateral, NORMAL BREATHING PATTERN. absent: Rales, Rhonchi, Wheezes - Cardiovascular Exam Cardiovascular Exam: REGULAR RHYTHM, RRR, +S1, +S2 - GI/Abdominal Exam GI & Abdominal Exam: Soft, Normal Bowel Sounds. absent: Distended, Tenderness Additional comments: mild distension. - Extremities Exam Additional comments: thin and cachetic. edema +1-2 of the bilateral upper extremities. Scrotal swelling. mild edema of the lower extremities. - Neurological Exam Additional comments: Intubated, ventilated, and poorly responsive. - Psychiatric Exam Additional comments: Intubated, ventilated, and poorly responsive. Assessment and Plan - Assessment and Plan (Free Text) Assessment: 85 yo male with cecal mass and bilateral hernia had exploratory laparotomy with right hemicolectomy. The patient is unable to give any significant information when speaking with him. He is not complaining of pain. The patient leukocytosis remains elevated at 31.8 and was 38.9 yesterday. There is a mild left shift to the leukocytosis. Supportive care. Silva cultures sent. Had Proteus in urine culture over a week ago but more recent urine culture is negative for growth. No growth in recent cultures so far. C. Diff studies negative. Currently on Meropenem and Flagyl for antibiotic coverage. Supportive care. Extremely poor prognosis with care bordering on futility at this point. No improvement in mental status over the past few days. Remains in MICU and required intubation and ventilation. On antibiotics of Vancomycin, Meropenem, and Flagyl currently. Awaiting repeat cultures - negative to date at 5+ days. No further surgical interventions. Possible aspiration pneumonia. Bleed at anastomotic site. Patient is hemodynamically stable. CT when patient stable enough to do so. He is currently off pressors and sedation. Repeat Abdominal X-ray shows resolvement of SBO portion of disease. Patient remains critically ill and has an extremely poor prognosis. He remains intubated and ventilated. Thank you for allowing me to participate in the care of the patient, we will follow with you.
[2016-06-02] MEDS: AMINO IV SCH (17:56)
[2016-06-02] MEDS: [UNRECOGNIZED DRUG - OTHER] IV SCH (17:56)
[2016-06-02] MEDS: DEXT IV SCH (17:56)
[2016-06-02] MEDS: MULTIVITAMIN IV SCH (17:56)
[2016-06-02] MEDS: TRACE ELEMENTS IV SCH (17:56)
[2016-06-02] MEDS ORDERED: Vancomycin 1 GM in Dextrose 5% In Water 250 ML IVPB SCH (18:00)
[2016-06-02] MEDS: Vancomycin 1 GM in Dextrose 5% In Water 250 ML IVPB SCH (22:36)
[2016-06-03] MEDS: Dexmedetomidine HCl 4mcg/ml 100 ML IV PRN ×3 (00:50→23:30)
[2016-06-03] MEDS: Albuterol-Ipratrop 3 mg / 0.5 (3 ml) UD IH SCH ×4 (01:43→21:21)
--- NOTE | 2016-06-03 03:09 | PN ---
DATE: 06/02/2016 ADDENDUM: This is an addendum to the GI progress report dictated by Henrietta Hurst APN. The patient was seen and evaluated earlier. The patient still remains on the vent. Abdomen softly distended. There was a right inguinoscrotal hernia present. LABORATORY DATA: Reveal a white cell count still elevated to 31.8. Hemoglobin is stable at 12.2. The patient still remains unstable for a CAT scan. CT scan of the abdomen and pelvis was done yesterday, which was reviewed, multifocal pulmonary consolidation. 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 Postoperative course was complicated with small- bowel obstruction, recurrent right inguinoscrotal hernia., gastrointestinal bleeding, hemodynamically stable. The patient has orogastric tube with minimal drainage. The present plan is to continue conservative management, continue with antibiotics. Surgical note was reviewed, trying to contact the family for tracheostomy placement. Continue the PPI. Followup of the hemoglobin and hematocrit. Thank you very much for allowing me to participate in the care of the patient. We will continue to closely follow up his care and suggest further management based on the clinical course. Ann Luna MD cc: [id number] TT: 06/03/2016 03:08:31 Confirmation # [id number] Dictation # [id number] [facility]
[2016-06-03 05:35] LABS: ARTERIAL BLOOD GAS O2 CONTENT 14.8 ML/dl (15-23); ARTERIAL BLOOD GAS PH 7.44 (7.35-7.45); ARTERIAL BLOOD HGB O2 SAT 96.6 % (95.0-98.0); CARBOXYHEMOGLOBIN 1.3 % (0.5-1.5); HHB 1.2 % (0-5); METHEMOGLOBIN 0.9 % (0.0-3.0)
[2016-06-03] MEDS: metroNIDAZOLE IV 500 mg/100 ml 100 ML IVPB SCH ×3 (05:56→22:18)
[2016-06-03 06:08] LABS: MEAN CELL VOLUME 93.1 fL (80.0-105.0); MEAN CORPUSCULAR HEMOGLOBIN 28.7 pg (25.0-35.0); MEAN CORPUSCULAR HGB CONC 30.9 g/dl (31.0-37.0); MEAN PLATELET VOLUME 12.3 fl (7.0-11.0); PLATELET COUNT 316 10^3/uL (120.0-450.0); RED CELL DISTRIBUTION WIDTH 19.1 % (11.5-14.5); WHITE BLOOD COUNT 24.4 10^3/ul (4.5-11.0)
[2016-06-03 06:14] LABS: ADD MANUAL DIFF? YES
[2016-06-03 06:15] LABS: ALKALINE PHOSPHATASE 74 U/L (38-133); ALT/SGPT 38 U/L (7-56); AST/SGOT 45 U/L (15-59); BILIRUBIN,TOTAL 0.6 mg/dL (0.2-1.3); BLOOD UREA NITROGEN 41 mg/dL (7-21); CALCIUM 7.5 mg/dL (8.4-10.5); CARBON DIOXIDE 37 mmol/L (21-33); CHLORIDE 109 mmol/L (95-110); GFR AFRICAN-AMERICAN > 60; GLUCOSE,RANDOM 130 mg/dL (70-110); MAGNESIUM 2.5 mg/dL (1.7-2.2); PHOSPHOROUS 2.4 mg/dL (2.5-4.5); POTASSIUM 3.9 mmol/L (3.6-5.0); SODIUM 148 mmol/L (132-148); TOTAL PROTEIN 4.7 g/dL (5.8-8.3)
[2016-06-03 06:18] LABS: ALB/GLOB RATIO 0.7 (1.1-1.8)
[2016-06-03] MEDS: Insulin Lispro (humaLOG) MEDIUM Coverage SC SCH ×4 (08:13→22:00)
[2016-06-03 08:59] LABS: BAND 5 % (0-2); NEUTROPHIL 91 % (50.0-70.0); PLATELET ESTIMATE NORMAL (NORMAL)
[2016-06-03 09:00] LABS: ANISOCYTOSIS 1+; HYPOCHROMIA 1+; LARGE PLATELETS PRESENT; POLYCHROMASIA SLIGHT
[2016-06-03] MEDS: Meropenem 1 GM in Sodium Chloride 0.9% 100 ML IVPB SCH ×3 (09:04→22:19)
[2016-06-03] MEDS: Vancomycin 1 GM in Dextrose 5% In Water 250 ML IVPB SCH ×2 (09:08→22:19)
[2016-06-03] MEDS: MethylPREDNISolone 40 mg Vial IVP SCH (09:10)
--- NOTE | 2016-06-03 11:00 | RAD ---
HISTORY: ett COMPARISON: Chest x-ray performed 05/30/16 TECHNIQUE: Chest, one view. FINDINGS: The flako is not well visualized. Endotracheal tube, nasogastric tube, and right IJ approach central venous catheter appear in similar positioning. LUNGS: Hyperinflation. Chronic interstitial markings. Bilateral upper lobe and left lower lobe suspected to reflect superimposed infection. Please note that chest x-ray has limited sensitivity for the detection of pulmonary masses. PLEURA: No significant pleural effusion identified. No definite pneumothorax . CARDIOVASCULAR: The cardiomediastinal silhouette appears within normal limits of size. OSSEOUS STRUCTURES: Degenerative changes. VISUALIZED UPPER ABDOMEN: Unremarkable. OTHER FINDINGS: None. IMPRESSION: Hyperinflation. Chronic interstitial markings. Bilateral upper lobe and left lower lobe suspected to reflect superimposed infection. The flako is not well visualized. Endotracheal tube, nasogastric tube, and right IJ approach central venous catheter appear in similar positioning.
--- NOTE | 2016-06-03 11:31 | CP.CCUPN ---
CCU Subjective - Physician Review Events Since Last Encounter (Free Text): 06/03/16 11:27 no acute events Critical Care Time Spent (in minutes): 55 CCU Objective - Vital Signs / Intake & Output Vital Signs (Last 4 hours): Vital Signs Temp Pulse BP Pulse Ox 06/03/16 09:00 86 124/53 L 95 06/03/16 08:00 97.7 F 75 123/52 L 96 Intake and Output (Last 8hrs): Intake & Output 06/02/16 06/03/16 06/03/16 22:59 06:59 14:59 Intake Total 1254 1165 Output Total 2500 900 Balance -1246 265 Weight 158 lb Intake: IV 500 Right Internal Jugular 500 TPN/PPN 504 Other 750 665 Output: Urine 2500 900 2-way Urethral 2500 900 Emesis 0 Other: Voiding Method Indwelling Catheter Indwelling Catheter # Bowel Movements 3 0 - Physical Exam Head: Positive for: Atraumatic, Normocephalic. Negative for: Ecchymosis Pupils: Positive for: PERRL Extroacular Muscles: Positive for: EOMI Conjunctiva: Positive for: Normal. Negative for: Injected, Icteric Mouth: Positive for: Moist Mucous Membranes Pharnyx: Positive for: Normal. Negative for: ERYTHEMA Nose (Internal): Positive for: Normal Inspection, No Active Bleeding Neck: Positive for: Normal Range of Motion Respiratory/Chest: Positive for: Respiratory Distress, Other (Intubated. ). Negative for: Tachypneic Cardiovascular: Positive for: Regular Rate and Rhythm, Normal S1, S2 Abdomen: Positive for: Normal Bowel Sounds, Hernias. Negative for: Tenderness, Distention, Peritoneal Signs, Rebound, Guarding Rectal: Positive for: Gross Blood, Melena Genitourinary Male: Positive for: Testicle Tenderness, Hernias, Testicle Swelling, Other (Large [id number] R inguinal hernia: irreducible. 10x5cm L inguinal hernia : irreducible.). Negative for: Normal External Genitalia Upper Extremity: Positive for: Normal Inspection, Edema, Swelling. Negative for : Erythema Lower Extremity: Positive for: Normal Inspection, Edema, Swelling. Negative for : Cyanosis Neurological: Positive for: Other (no withdrawl from pain ) Skin: Positive for: Warm, Dry Psychiatric: Negative for: Alert, Oriented x 3, Normal Insight - Medications Active Medications: Active Medications Generic Name Dose Route Start Last Admin Trade Name Freq PRN Reason Stop Dose Admin Acetaminophen 650 mg 05/17/16 08:33 Tylenol 325mg Tab PO Q4H PRN FEVER, PAIN Albuterol/Ipratropium 3 ml 05/30/16 14:00 06/03/16 08:29 Duoneb 3 Mg/0.5 Mg (3 Ml) Ud IH 3 ml [id number] SHARIF Administration Metronidazole 100 mls @ 100 mls/hr 05/24/16 08:15 06/03/16 05:56 Flagyl IVPB 100 mls/hr Q8 SHARIF Administration Protocol Multivitamins/Vitamin C 10 ml/ 1,011 mls @ 42 mls/hr 06/01/16 18:00 06/02/16 17 :56 Chromium/Copper/Manganese/ IV 06/04/16 17:59 42 mls/hr Zinc 1 ml/ Amino Acids .Q24H SHARIF Administration Vancomycin HCl 1 gm/ Dextrose 250 mls @ 166.667 mls/hr 06/02/16 22:00 06/03/16 09:08 IVPB 166.667 mls/hr Q12 SHARIF Administration Dexmedetomidine HCl 100 mls @ 3.645 mls/hr 06/02/16 14:15 06/03/16 00:50 Precedex 4 Mcg/Ml (100 Ml) IV 9.4 mls/hr .Q24H PRN Administration Agitation Protocol 0.2 MCG/KG/HR Meropenem 1 gm/ Sodium 100 mls @ 100 mls/hr 06/03/16 08:45 06/03/16 09:04 Chloride IVPB 100 mls/hr Q8 SHARIF Administration Protocol Insulin Human Lispro 0 units 05/31/16 22:00 06/03/16 08:13 Humalog Med SC Not Given ACHS SHARIF Protocol Methylprednisolone 40 mg 06/01/16 10:00 06/03/16 09:10 Solu-Medrol IVP 40 mg DAILY SHARIF Administration Pantoprazole Sodium 40 mg 06/01/16 10:00 06/03/16 09:10 Protonix Inj IVP 40 mg Q12 SHARIF Administration - Patient Studies Lab Studies: Microbiology Studies 06/01/16 06:00 Stool Culture - Final Stool NO SALMONELLA, SHIGELLA OR CAMPYLOBACTER ISOLATED. 06/01/16 00:50 Blood Culture - Preliminary Blood-Venous NO GROWTH AFTER 48 HOURS 06/01/16 00:47 Blood Culture - Preliminary Blood-Venous NO GROWTH AFTER 48 HOURS 05/31/16 09:30 Gram Stain - Final Sputum Sputum Culture - Final Yeast Species 06/01/16 01:25 Urine Culture - Final Urine,Gleason No Growth (<1,000 CFU/ML) Lab Studies 06/03/16 06/03/16 06/02/16 Range/Units 05:15 03:45 21:45 WBC 24.4 H D (4.5-11.0) 10^3/ul RBC 3.76 (3.5-6.1) 10^6/uL Hgb 10.8 L (14.0-18.0) gm/dL Hct 35.0 L (42.0-52.0) % MCV 93.1 (80.0-105.0) fL MCH 28.7 (25.0-35.0) pg MCHC 30.9 L (31.0-37.0) g/dl RDW 19.1 H (11.5-14.5) % Plt Count 316 (120.0-450.0) 10^3/uL MPV 12.3 H (7.0-11.0) fl Neutrophils % (Manual) 91 H (50.0-70.0) % Band Neutrophils % 5 H (0-2) % Lymphocytes % (Manual) 3 L (22.0-35.0) % Monocytes % (Manual) 1 (1.0-6.0) % Platelet Evaluation Normal (NORMAL) Large Platelets Present Polychromasia Slight Hypochromasia 1+ Anisocytosis (manual) 1+ pCO2 53 H (35-45) mm/Hg pO2 259.0 H (80-100) mm/Hg HCO3 36.0 H (21-28) mmol/L ABG pH 7.44 (7.35-7.45) ABG Total CO2 37.6 H (22-28) mmol.L ABG O2 Saturation 98.8 H (95-98) % ABG O2 Content 14.8 L (15-23) ML/dl ABG Base Excess 10.3 H (-2.0-3.0) mmol/L ABG Hemoglobin 10.4 L (11.7-17.4) g/dL ABG Carboxyhemoglobin 1.3 (0.5-1.5) % POC ABG HHb (Measured) 1.2 (0-5) % ABG Methemoglobin 0.9 (0.0-3.0) % ABG O2 Capacity 15.0 L (16-24) mL/dl Hgb O2 Saturation 96.6 (95.0-98.0) % FiO2 100.0 % Sodium 148 (132-148) mmol/L Potassium 3.9 (3.6-5.0) mmol/L Chloride 109 (95-110) mmol/L Carbon Dioxide 37 H (21-33) mmol/L Anion Gap 6 L (10-20) BUN 41 H (7-21) mg/dL Creatinine 0.6 (0.5-1.4) mg/dL Est GFR ( Amer) > 60 Est GFR (Non-Af Amer) > 60 POC Glucose (mg/dL) 104 (65-110) mg/dL Random Glucose 130 H (70-110) mg/dL Calcium 7.5 L (8.4-10.5) mg/dL Phosphorus 2.4 L (2.5-4.5) mg/dL Magnesium 2.5 H (1.7-2.2) mg/dL Total Bilirubin 0.6 (0.2-1.3) mg/dL AST 45 (15-59) U/L ALT 38 (7-56) U/L Alkaline Phosphatase 74 (38-133) U/L Total Protein 4.7 L (5.8-8.3) g/dL Albumin 2.0 L (3.0-4.8) g/dL Globulin 2.7 gm/dL Albumin/Globulin Ratio 0.7 L (1.1-1.8) Crossmatch 06/02/16 05/26/16 Range/Units 17:51 11:30 WBC (4.5-11.0) 10^3/ul RBC (3.5-6.1) 10^6/uL Hgb (14.0-18.0) gm/dL Hct (42.0-52.0) % MCV (80.0-105.0) fL MCH (25.0-35.0) pg MCHC (31.0-37.0) g/dl RDW (11.5-14.5) % Plt Count (120.0-450.0) 10^3/uL MPV (7.0-11.0) fl Neutrophils % (Manual) (50.0-70.0) % Band Neutrophils % (0-2) % Lymphocytes % (Manual) (22.0-35.0) % Monocytes % (Manual) (1.0-6.0) % Platelet Evaluation (NORMAL) Large Platelets Polychromasia Hypochromasia Anisocytosis (manual) pCO2 (35-45) mm/Hg pO2 (80-100) mm/Hg HCO3 (21-28) mmol/L ABG pH (7.35-7.45) ABG Total CO2 (22-28) mmol.L ABG O2 Saturation (95-98) % ABG O2 Content (15-23) ML/dl ABG Base Excess (-2.0-3.0) mmol/L ABG Hemoglobin (11.7-17.4) g/dL ABG Carboxyhemoglobin (0.5-1.5) % POC ABG HHb (Measured) (0-5) % ABG Methemoglobin (0.0-3.0) % ABG O2 Capacity (16-24) mL/dl Hgb O2 Saturation (95.0-98.0) % FiO2 % Sodium (132-148) mmol/L Potassium (3.6-5.0) mmol/L Chloride (95-110) mmol/L Carbon Dioxide (21-33) mmol/L Anion Gap (10-20) BUN (7-21) mg/dL Creatinine (0.5-1.4) mg/dL Est GFR ( Amer) Est GFR (Non-Af Amer) POC Glucose (mg/dL) 114 H (65-110) mg/dL Random Glucose (70-110) mg/dL Calcium (8.4-10.5) mg/dL Phosphorus (2.5-4.5) mg/dL Magnesium (1.7-2.2) mg/dL Total Bilirubin (0.2-1.3) mg/dL AST (15-59) U/L ALT (7-56) U/L Alkaline Phosphatase (38-133) U/L Total Protein (5.8-8.3) g/dL Albumin (3.0-4.8) g/dL Globulin gm/dL Albumin/Globulin Ratio (1.1-1.8) Crossmatch See Detail Laboratory Results - last 24 hr 05/26/16 06/02/16 06/02/16 11:30 17:51 21:45 WBC RBC Hgb Hct MCV MCH MCHC RDW Plt Count MPV Neutrophils % (Manual) Band Neutrophils % Lymphocytes % (Manual) Monocytes % (Manual) Platelet Evaluation Large Platelets Polychromasia Hypochromasia Anisocytosis (manual) pCO2 pO2 HCO3 ABG pH ABG Total CO2 ABG O2 Saturation ABG O2 Content ABG Base Excess ABG Hemoglobin ABG Carboxyhemoglobin POC ABG HHb (Measured) ABG Methemoglobin ABG O2 Capacity Hgb O2 Saturation FiO2 Sodium Potassium Chloride Carbon Dioxide Anion Gap BUN Creatinine Est GFR ( Amer) Est GFR (Non-Af Amer) POC Glucose (mg/dL) 114 H 104 Random Glucose Calcium Phosphorus Magnesium Total Bilirubin AST ALT Alkaline Phosphatase Total Protein Albumin Globulin Albumin/Globulin Ratio Crossmatch See Detail 06/03/16 06/03/16 03:45 05:15 WBC 24.4 H D RBC 3.76 Hgb 10.8 L Hct 35.0 L MCV 93.1 MCH 28.7 MCHC 30.9 L RDW 19.1 H Plt Count 316 MPV 12.3 H Neutrophils % (Manual) 91 H Band Neutrophils % 5 H Lymphocytes % (Manual) 3 L Monocytes % (Manual) 1 Platelet Evaluation Normal Large Platelets Present Polychromasia Slight Hypochromasia 1+ Anisocytosis (manual) 1+ pCO2 53 H pO2 259.0 H HCO3 36.0 H ABG pH 7.44 ABG Total CO2 37.6 H ABG O2 Saturation 98.8 H ABG O2 Content 14.8 L ABG Base Excess 10.3 H ABG Hemoglobin 10.4 L ABG Carboxyhemoglobin 1.3 POC ABG HHb (Measured) 1.2 ABG Methemoglobin 0.9 ABG O2 Capacity 15.0 L Hgb O2 Saturation 96.6 FiO2 100.0 Sodium 148 Potassium 3.9 Chloride 109 Carbon Dioxide 37 H Anion Gap 6 L BUN 41 H Creatinine 0.6 Est GFR ( Amer) > 60 Est GFR (Non-Af Amer) > 60 POC Glucose (mg/dL) Random Glucose 130 H Calcium 7.5 L Phosphorus 2.4 L Magnesium 2.5 H Total Bilirubin 0.6 AST 45 ALT 38 Alkaline Phosphatase 74 Total Protein 4.7 L Albumin 2.0 L Globulin 2.7 Albumin/Globulin Ratio 0.7 L Crossmatch Fingerstick Blood Sugar Results: 111 Critical Care Progress Note - Ventilator Checklist Daily Sedation Vacation: Yes Daily Assessment of Readiness to Wean: Yes Daily Spontaneous Breathing Trial: Yes PUD Prophalyxis: Yes DVT Prophylaxis: Yes - Vent Settings MODE:: ASSIST CONTROL - Extremities/Vascular Does the Patient have a Central Venous Catheter?: Yes - Nutrition Nutrition: Nutrition Category Date Time Status NPO Diet [DIET] Diets 05/26/16 Breakfast Ordered Assessment/Plan - Assessment and Plan (Free Text) Assessment: 86 y/o M w/ resolving ARDS Intubated, on SBt daily, today tolerated 45 minutes before becoming tacypneic Mental status not improving , despite off all sedation. Precedex started for tachypnea during intubation. On broad spectrum abx with improving WBC with ID following. All cx remain negative EEg shows slowing with reduced brain activity, no withdrawl from pain. respiratory and brainstem center intact. Poor prognosis residential. Awaiting decision from POA on possible tracheostomy / PEG placement cc time 65 min
--- NOTE | 2016-06-03 14:25 | PN ---
DATE: 06/03/2016 The patient is looking better, he is more awake, his vital signs are stable with an increased blood p ressure. He is still intubated on 100% and 6 of PEEP. The abdomen is soft. He is pooping and the N G tube is re-used as a source of nutrition. We are still waiting to hear from the family who have no t responded to any of our multiple calls. Alberto Peterson MD cc: [id number] TT: 06/03/2016 14:25:15 Confirmation # [id number] Dictation # [id number] cn
--- NOTE | 2016-06-03 14:26 | PN ---
DATE: 06/03/2016 This 86-year-old male was examined at his bedside ICU bed one. His case was reviewed in detail with his nurse and the glass calibrator, Dr. Zepeda, as well as Dr. Peterson from surgery. The patient remains intubated, unresponsive and no family members have made contact to date regarding updates and further discussion of his code status and possible tracheostomy. The patient is ventilatory dependent. He is currently on an FIO2 of 100% and 6 of PEEP. He has not been able to be weaned off the ventilator and he is unresponsive off all sedation. His last bowel movement was 2 days ago which was melanotic and there have been no reports of bright red blood per rectum nor hematemesis in the past 48 hours. On the compliance monitor, he is in a sinus rhythm. PHYSICAL EXAMINATION VITAL SIGNS: On the compliance monitor, he is in a sinus rhythm. Temperature is 97.7, pulse is 77, blood pressure 124/53. I's and O's 1165 in, 900 out HEAD: Normocephalic, atraumatic. EYES: No icterus. EARS: Clear. THROAT: Noninjected. NECK: Supple. HEART: S1, S2. LUNGS: With occasional rhonchi bilaterally. No wheezing, no rales. ABDOMEN: Soft. No palpable organomegaly, no rebound, no tenderness, no guarding. Healing vertical incisional scar noted. EXTREMITIES: Scrotum shows bilateral inguinal hernias. VASCULAR: Legs warm to touch. He is wearing anti-embolism stockings and SCD compression stockings. PSYCHOLOGICAL: Unresponsive. NEUROLOGIC: Remains unresponsive. LABORATORY DATA: White count 24,400, hemoglobin 10.8, hematocrit 35.0, platelets 316,000. Latest blood gas showed a pH of 7.44, pCO2 of 53, pO2 of 259 , and a bicarb of 36 on an FIO2 of 100% and 6 of PEEP. Chest x-ray this morning shows bilateral upper right and left lower lobe infiltrates. 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, nodes 0, with postoperative complications of massive gastrointestinal bleeding, presumed secondary to the anastomotic site, also with hematemesis, probably secondary to stress gastritis and aspiration pneumonia and adult respiratory distress syndrome, now ventilatory dependent and unable to be weaned off the ventilator with unresponsive state off all sedation in the setting of toxic metabolic encephalopathy and comorbidities of septic shock, hemorrhagic shock, chronic obstructive pulmonary disease, aspiration pneumonia, anemia of gastrointestinal bleeding, sepsis, leukocytosis , bilateral inguinal hernias and mental retardation. PLAN: To date no family members have been reached to give consent for DNR or tracheostomy. The patient is receiving IV PPN and surgery will discuss timing of NG tube feeds with the glass calibrator. He remains on respiratory support. Attempts to wean him have been unsuccessful to date. He is receiving pulmonary toiletry with Duo nebulizers. Antibiotics continue including IV vancomycin, IV Flagyl and IV meropenem under the direction of Dr. Fuentes Victoria from infectious disease. He continues on insulin coverage before meals and at bedtime. He is receiving Protonix 40 mg IV q. 12, Solu-Medrol 40 mg IV daily. Palliative care is following the case daily as well. He remains on fall precautions, aspiration precautions and anti-embolism stockings. He is not a candidate for anticoagulation given his massive GI bleeding. He is receiving skin care and a specialty mattress to avoid sacral ulceration and overall prognosis remains dismal. He is scheduled for serial labs. Social service is attempting to reach next of kin for further guidance. The patient will continue to be treated supportively. Approximately 60 minutes were spent in the care, discussion of care, review of care and coordination of care with co-consultants on this patient in intensive care today. Prognosis remains guarded. Codi Pringle MD cc: [phone] TT: 06/03/2016 14:25:35 Confirmation # [id number] Dictation # [id number] tn [id number]
--- NOTE | 2016-06-03 15:14 | CP.PCM.PN ---
Subjective - Date & Time of Evaluation Date of Evaluation: 06/03/16 Time of Evaluation: 07:40 - Subjective Subjective: General Surgery progress note for Dr. Peterson Pt s/e at bedside this AM. NAEO. Patient is sedated for intubation with mechanical ventilation. No signs of pain on physical exam. Objective - Vital Signs/Intake and Output Vital Signs (last 24 hours): Temp Pulse Resp BP Pulse Ox 97.9 F 78 29 H 137/62 95 06/03/16 12:00 06/03/16 13:00 05/31/16 18:00 06/03/16 13:00 06/03/16 13:00 Intake and Output: 06/03/16 06/03/16 06:59 18:59 Intake Total 1165 Output Total 900 Balance 265 - Medications Medications: Current Medications Acetaminophen (Tylenol 325mg Tab) 650 mg PO Q4H PRN PRN Reason: FEVER, PAIN Albuterol/Ipratropium (Duoneb 3 Mg/0.5 Mg (3 Ml) Ud) 3 ml IH [id number] SHARIF Last Admin: 06/03/16 13:53 Dose: 3 ml Metronidazole (Flagyl) 100 mls @ 100 mls/hr IVPB Q8 SHARIF PRN Reason: Protocol Last Admin: 06/03/16 13:32 Dose: 100 mls/hr Multivitamins/Vitamin C 10 ml/Chromium/Copper/Manganese/Zinc 1 ml/ Amino Acids 1,011 mls @ 42 mls/hr IV .Q24H SHARIF Stop: 06/04/16 17:59 Last Admin: 06/02/16 17:56 Dose: 42 mls/hr Vancomycin HCl 1 gm/ Dextrose 250 mls @ 166.667 mls/hr IVPB Q12 SHARIF Last Admin: 06/03/16 09:08 Dose: 166.667 mls/hr Dexmedetomidine HCl (Precedex 4 Mcg/Ml (100 Ml)) 100 mls @ 3.645 mls/hr IV .Q24H PRN; Protocol; 0.2 MCG/KG/HR PRN Reason: Agitation Last Admin: 06/03/16 12:28 Dose: 9.294 mls/hr Meropenem 1 gm/ Sodium (Chloride) 100 mls @ 100 mls/hr IVPB Q8 SHARIF PRN Reason: Protocol Last Admin: 06/03/16 09:04 Dose: 100 mls/hr Insulin Human Lispro (Humalog Med) 0 units SC ACHS [facility] PRN Reason: Protocol Last Admin: 06/03/16 12:26 Dose: 1 units Methylprednisolone (Solu-Medrol) 40 mg IVP DAILY [facility] Last Admin: 06/03/16 09:10 Dose: 40 mg Pantoprazole Sodium (Protonix Inj) 40 mg IVP Q12 [facility] Last Admin: 06/03/16 09:10 Dose: 40 mg - Labs Labs: 06/03/16 03:45 06/03/16 03:45 PT 16.7 Seconds (9.9-11.8) H 05/27/16 17:35 INR 1.55 (0.93-1.08) H 05/27/16 17:35 APTT 28.1 Seconds (23.7-30.8) 05/27/16 17:35 - Constitutional Appears: No Acute Distress - Head Exam Head Exam: ATRAUMATIC, NORMOCEPHALIC - ENT Exam ENT Exam: Mucous Membranes Moist - Respiratory Exam Respiratory Exam: absent: Accessory Muscle Use, Respiratory Distress Additional comments: Mechanically ventilated - Cardiovascular Exam Cardiovascular Exam: absent: Bradycardia, Tachycardia - GI/Abdominal Exam GI & Abdominal Exam: Soft. absent: Tenderness Additional comments: Midline incision approximated with fabiana, no erythema or purulent drainage. Superior pole skin edges not approximated for approximately 0.5cm length after removal of fabiana - Exam Exam: Scrotal Swelling (no erythema or cellulitis). absent: Testicular Tenderness - Neurological Exam Neurological Exam: Altered (sedated) - Psychiatric Exam Additional comments: sedated - Skin Skin Exam: Dry, Intact, Normal Color
--- NOTE | 2016-06-03 16:28 | CP.PCM.PN ---
Subjective - Date & Time of Evaluation Date of Evaluation: 06/03/16 Time of Evaluation: 14:15 - Subjective Subjective: Infectious Disease Follow Up: June 03, 2016 85 yo male with initial presentation for abdominal pain and abnormal CT scan sent from [facility] facility (I think [facility] [place]). 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 Currently the patient appears comfortable. He is unable to give any relevant information due to a severe developmental delay. Patient is currently post-operative day #9 and has been displaying increased leukocytosis since the surgery. Patient himself is intubated and ventilated. He was brought to MICU and remain here since. He required intubation and ventilation. Signs of aspiration pneumonia. On meropenem for now. Persistent leukocytosis. Patient in critical condition. Right IJ placed by MICU team. Case discussed with Dr. Pringle and Dr. Molina. The patient is on Meropenem and Flagyl for antibiotic coverage. Leukocytosis remains elevated at 29.6 today. Patient remains in critical condition but seems to have no further deterioration. Patient did receive 6 U of PRBCs, 4 U of FFP, and 1 U of platelets during the first 24 hours in ICU. Surgery has asked for a C. diff study which is negative. Melena and blood clots from rectum have slowed down considerably. Patient has an extremely poor prognosis. 2 episode of black stools in the past 24 hours. There has been no improvement of the patient's mental status over the past few days. Currently off pressors and sedation. Poorly responsive. Very poor prognosis. Remains intubated and ventilated. Attempts to wean off ventilator. Mentally, no improvement. Objective - Vital Signs/Intake and Output Vital Signs (last 24 hours): Temp Pulse Resp BP Pulse Ox 97.9 F 76 29 H 147/64 95 06/03/16 12:00 06/03/16 14:00 05/31/16 18:00 06/03/16 14:00 06/03/16 14:00 Intake and Output: 06/03/16 06/03/16 06:59 18:59 Intake Total 1165 Output Total 900 Balance 265 - Medications Medications: Current Medications Acetaminophen (Tylenol 325mg Tab) 650 mg PO Q4H PRN PRN Reason: FEVER, PAIN Albuterol/Ipratropium (Duoneb 3 Mg/0.5 Mg (3 Ml) Ud) 3 ml IH [id number] [facility] Last Admin: 06/03/16 13:53 Dose: 3 ml Metronidazole (Flagyl) 100 mls @ 100 mls/hr IVPB Q8 SHARIF PRN Reason: Protocol Last Admin: 06/03/16 13:32 Dose: 100 mls/hr Multivitamins/Vitamin C 10 ml/Chromium/Copper/Manganese/Zinc 1 ml/ Amino Acids 1,011 mls @ 42 mls/hr IV .Q24H [facility] Stop: 06/04/16 17:59 Last Admin: 06/02/16 17:56 Dose: 42 mls/hr Vancomycin HCl 1 gm/ Dextrose 250 mls @ 166.667 mls/hr IVPB Q12 [facility] Last Admin: 06/03/16 09:08 Dose: 166.667 mls/hr Dexmedetomidine HCl (Precedex 4 Mcg/Ml (100 Ml)) 100 mls @ 3.645 mls/hr IV .Q24H PRN; Protocol; 0.2 MCG/KG/HR PRN Reason: Agitation Last Admin: 06/03/16 12:28 Dose: 9.294 mls/hr Meropenem 1 gm/ Sodium (Chloride) 100 mls @ 100 mls/hr IVPB Q8 SHARIF PRN Reason: Protocol Last Admin: 06/03/16 09:04 Dose: 100 mls/hr Insulin Human Lispro (Humalog Med) 0 units SC ACHS SHARIF PRN Reason: Protocol Last Admin: 06/03/16 12:26 Dose: 1 units Methylprednisolone (Solu-Medrol) 40 mg IVP DAILY [facility] Last Admin: 06/03/16 09:10 Dose: 40 mg Pantoprazole Sodium (Protonix Inj) 40 mg IVP Q12 [facility] Last Admin: 06/03/16 09:10 Dose: 40 mg - Labs Labs: 06/03/16 03:45 06/03/16 03:45 PT 16.7 Seconds (9.9-11.8) H 05/27/16 17:35 INR 1.55 (0.93-1.08) H 05/27/16 17:35 APTT 28.1 Seconds (23.7-30.8) 05/27/16 17:35 - Constitutional Appears: Chronically Ill - Head Exam Additional comments: intubated and ventilated - Eye Exam Eye Exam: EOMI, PERRL Pupil Exam: NORMAL ACCOMODATION, PERRL - ENT Exam ENT Exam: Mucous Membranes Moist, Normal External Ear Exam, TM's Normal Bilaterally - Neck Exam Additional comments: intubated and ventilated. - Respiratory Exam Respiratory Exam: Clear to Ausculation Bilateral, NORMAL BREATHING PATTERN. absent: Rales, Rhonchi, Wheezes - Cardiovascular Exam Cardiovascular Exam: REGULAR RHYTHM, RRR, +S1, +S2 - GI/Abdominal Exam GI & Abdominal Exam: Soft, Normal Bowel Sounds. absent: Distended, Tenderness - Extremities Exam Additional comments: thin and cachetic. edema +1-2 of the bilateral upper extremities. Scrotal swelling. mild edema of the lower extremities. - Neurological Exam Additional comments: Intubated, ventilated, and poorly responsive. - Psychiatric Exam Additional comments: Intubated, ventilated, and poorly responsive. Assessment and Plan - Assessment and Plan (Free Text) Assessment: 85 yo male with cecal mass and bilateral hernia had exploratory laparotomy with right hemicolectomy. The patient is unable to give any significant information when speaking with him. He is not complaining of pain. The patient leukocytosis remains elevated at 31.8 and was 38.9 yesterday. There is a mild left shift to the leukocytosis. Supportive care. Silva cultures sent. Had Proteus in urine culture over a week ago but more recent urine culture is negative for growth. No growth in recent cultures so far. C. Diff studies negative. Currently on Meropenem and Flagyl for antibiotic coverage. Supportive care. Extremely poor prognosis with care bordering on futility at this point. No improvement in mental status over the past few days. Remains in MICU and required intubation and ventilation. On antibiotics of Vancomycin, Meropenem, and Flagyl currently. Awaiting repeat cultures - negative to date at 5+ days. No further surgical interventions. Possible aspiration pneumonia. Bleed at anastomotic site. Patient is hemodynamically stable. CT when patient stable enough to do so. He is currently off pressors and sedation. Repeat Abdominal X-ray shows resolvement of SBO portion of disease. Patient remains critically ill and has an extremely poor prognosis. He remains intubated and ventilated. There are attempts to wean off ventilator. Thank you for allowing me to participate in the care of the patient, we will follow with you.
--- NOTE | 2016-06-03 17:32 | PN ---
DATE: 06/03/2016 The patient is lying on the bed, in no acute distress, on a ventilator. PHYSICAL EXAMINATION: VITAL SIGNS: Her blood pressure is 147/64, heart rate is 76 per minute, breathing at a rate of 16 pe r minute, temperature is 97.9 degrees Fahrenheit. HEENT: Head is normocephalic, atraumatic. NECK: Supple. There are no carotid bruits. LUNGS: Clear. CARDIOVASCULAR: S1, S2 audible. No murmurs. ABDOMEN: Soft, nontender. Bowel sounds are present. NEUROLOGIC EXAMINATION: MENTAL STATUS: The patient is minimally responsive with noxious painful stimuli with minimal opening of the eyes. He does not follow any commands. CRANIAL NERVES: Pupils are 3 mm, bilaterally reactive to light. Positive doll's eye. Positive corn eal reflex. Positive gag reflex. There is no withdrawal of extremities to noxious painful stimuli. LABORATORY DATA: Labs reviewed, show WBC of 24.4, hemoglobin of 10.8, hematocrit 35.0 and platelets of 316. Sodium is 148, potassium 3.9, chloride is 109, carbon dioxide content of 37, BUN of 41, crea tinine 0.6, and glucose of 130. IMPRESSION: 1. Toxic metabolic encephalopathy. 2. Sepsis. 3. Respiratory failure. RECOMMENDATIONS: 1. The patient had an electroencephalogram which shows severe bihemispheric cerebral dysfunction. 2. The patient has shown minimal improvement in neurologic status with the patient minimally opening his eyes to noxious stimuli. 3. The patient to be continued on IV antibiotics. 4. The patient to have ventilatory support. 5. Please continue supportive care and other treatment. Thank you for the opportunity to participate in the care of this patient. Sofía Zepeda MD cc: [id number] TT: 06/03/2016 17:32:06 Confirmation # [id number] Dictation # [id number] tn
--- NOTE | 2016-06-03 17:55 | PN ---
DATE: 06/03/2016 SUBJECTIVE: This patient was seen and evaluated earlier today. The patient still remains intubated on vent, on PEEP 6 with 100% FIO2. Off the sedation. PHYSICAL EXAMINATION: VITAL SIGNS: Afebrile, pulse 82, blood pressure 134/68. HEENT: Atraumatic, anicteric. NECK: Supple. HEART: S1, S2 heard. LUNGS: Bilateral air entry present, reduced in the bases, occasional rhonchi present bilaterally. ABDOMEN: Soft. There is a surgical incision noticed. Right inguinal scrotal swelling noticed. EXTREMITIES: Bilateral thromboembolic stockings present. NEUROLOGIC: Unresponsive. LABORATORY DATA: WBC is 24,000, hemoglobin 10.8, hematocrit 35, and platelets 316. IMPRESSION: This patient is an 86-year-old patient, status post right hemicolectomy for cecal mass.adenocarcinoma.. Postoperative course complicated with a small-bowel intestinal obstruction, gastrointestinal bleeding, Pneumonia. and sepsis. The patient on ventilator, off the sedation, not responsive. Awaiting family members to call back. Hemoglobin remains stable now. The patient on PEEP, 100% FIO2. RECOMMENDATIONS: Continue the antibiotics and present treatment as above. Overall prognosis remains guarded. Thank you very much for allowing us to participate in the care of the patient. Ann Luna MD cc: [id number] TT: 06/03/2016 17:54:48 Confirmation # [id number] Dictation # [id number] ln MTDD
--- NOTE | 2016-06-03 23:50 | CP.PCM.PN ---
Subjective - Date & Time of Evaluation Date of Evaluation: 06/04/16 Time of Evaluation: 06:00 - Subjective Subjective: General Surgery progress note for Dr. Peterson Pt s/e at bedside. NAEO. Patient remains on mechanical ventilation decreased to 60% FiO2 and 6 PEEP. Objective - Vital Signs/Intake and Output Vital Signs (last 24 hours): Temp Pulse Resp BP Pulse Ox 97.3 F L 88 29 H 137/69 93 L 06/03/16 16:00 06/03/16 17:00 05/31/16 18:00 06/03/16 17:00 06/03/16 17:00 Intake and Output: 06/03/16 06/04/16 18:59 06:59 Intake Total 1232 Output Total 1100 Balance 132 - Medications Medications: Current Medications Acetaminophen (Tylenol 325mg Tab) 650 mg PO Q4H PRN PRN Reason: FEVER, PAIN Albuterol/Ipratropium (Duoneb 3 Mg/0.5 Mg (3 Ml) Ud) 3 ml IH [id number] COUNTS INCLUDE 234 BEDS AT THE [facility] Last Admin: 06/03/16 21:21 Dose: 3 ml Metronidazole (Flagyl) 100 mls @ 100 mls/hr IVPB Q8 SHARIF PRN Reason: Protocol Last Admin: 06/03/16 22:18 Dose: 100 mls/hr Vancomycin HCl 1 gm/ Dextrose 250 mls @ 166.667 mls/hr IVPB Q12 SHARIF Last Admin: 06/03/16 22:19 Dose: 166.667 mls/hr Dexmedetomidine HCl (Precedex 4 Mcg/Ml (100 Ml)) 100 mls @ 3.645 mls/hr IV .Q24H PRN; Protocol; 0.2 MCG/KG/HR PRN Reason: Agitation Last Admin: 06/03/16 23:30 Dose: 7.289 mls/hr Meropenem 1 gm/ Sodium (Chloride) 100 mls @ 100 mls/hr IVPB Q8 SHARIF PRN Reason: Protocol Last Admin: 06/03/16 22:19 Dose: 100 mls/hr Insulin Human Lispro (Humalog Med) 0 units SC ACHS SHARIF PRN Reason: Protocol Last Admin: 06/03/16 16:49 Dose: Not Given Methylprednisolone (Solu-Medrol) 40 mg IVP DAILY COUNTS INCLUDE 234 BEDS AT THE [facility] Last Admin: 03/18/17 09:10 Dose: 40 mg Pantoprazole Sodium (Protonix Inj) 40 mg IVP Q12 SHARIF Last Admin: 06/03/16 22:19 Dose: 40 mg - Labs Labs: 06/03/16 03:45 06/03/16 03:45 PT 16.7 Seconds (9.9-11.8) H 05/27/16 17:35 INR 1.55 (0.93-1.08) H 05/27/16 17:35 APTT 28.1 Seconds (23.7-30.8) 05/27/16 17:35 - Constitutional Appears: No Acute Distress - Head Exam Head Exam: ATRAUMATIC, NORMOCEPHALIC - ENT Exam Additional comments: ETT and OGT in place - Respiratory Exam Additional comments: Mechanically ventilated with voluntary respiratory effort - Cardiovascular Exam Cardiovascular Exam: absent: Bradycardia, Tachycardia - GI/Abdominal Exam GI & Abdominal Exam: Soft, Hernia (Right inguinal hernia with bowel in the right scrotum). absent: Distended, Tenderness Additional comments: midline surgical incision well approximated except for one 0.5 cm opening in the superior pole. 2 fabiana in the superior pole and one in the inferior pole - Extremities Exam Extremities Exam: absent: Joint Swelling, Pedal Edema - Neurological Exam Neurological Exam: Altered (medically sedated) - Psychiatric Exam Additional comments: medically sedated - Skin Skin Exam: Dry, Normal Color, Warm Assessment and Plan - Assessment and Plan (Free Text) Assessment: 85M w. B/L inguinal hernias and cecal mass, s/p ex-lap w. R hemicolectomy, POD# 13, complicated by GI bleed Plan -f/u today's H/H,continue to monitor, transfuse PRN -Continue tube feeds with residual checks -f/u WBC -f/u with family/ethics committee decision regarding possible tracheostomy -will continue to follow closely and plan for trach accordingly d/w Dr. Nicholas Mcgovern, PGY1
[2016-06-04] MEDS: Albuterol-Ipratrop 3 mg / 0.5 (3 ml) UD IH SCH ×4 (02:15→20:09)
[2016-06-04] MEDS: Meropenem 1 GM in Sodium Chloride 0.9% 100 ML IVPB SCH ×3 (06:10→21:51)
[2016-06-04] MEDS: metroNIDAZOLE IV 500 mg/100 ml 100 ML IVPB SCH ×3 (06:15→21:48)
[2016-06-04 06:33] LABS: ARTERIAL BLOOD GAS HCO3 34.7 mmol/L (21-28); ARTERIAL BLOOD GAS O2 CAPACITY 16.7 mL/dl (16-24); ARTERIAL BLOOD GAS O2 CONTENT 16.2 ML/dl (15-23); ARTERIAL BLOOD HGB O2 SAT 94.6 % (95.0-98.0); CARBOXYHEMOGLOBIN 2.1 % (0.5-1.5); HHB 2.9 % (0-5); METHEMOGLOBIN 0.4 % (0.0-3.0)
[2016-06-04 06:50] LABS: ADD MANUAL DIFF? NO
--- NOTE | 2016-06-04 06:52 | CP.PCM.PN ---
Subjective - Date & Time of Evaluation Date of Evaluation: 06/04/16 Time of Evaluation: 06:00 - Subjective Subjective: General Surgery progress note for Dr. Peterson Pt s/e at bedside. NAEO. Patient remains on mechanical ventilation decreased to 60% FiO2 and 6 PEEP. Objective - Vital Signs/Intake and Output Vital Signs (last 24 hours): Temp Pulse Resp BP Pulse Ox 97.3 F L 88 29 H 137/69 93 L 06/03/16 16:00 06/03/16 17:00 05/31/16 18:00 06/03/16 17:00 06/03/16 17:00 Intake and Output: 06/03/16 06/04/16 18:59 06:59 Intake Total 1232 Output Total 1100 Balance 132 - Medications Medications: Current Medications Acetaminophen (Tylenol 325mg Tab) 650 mg PO Q4H PRN PRN Reason: FEVER, PAIN Albuterol/Ipratropium (Duoneb 3 Mg/0.5 Mg (3 Ml) Ud) 3 ml IH [id number] [facility] Last Admin: 06/03/16 21:21 Dose: 3 ml Metronidazole (Flagyl) 100 mls @ 100 mls/hr IVPB Q8 SHARIF PRN Reason: Protocol Last Admin: 06/04/16 06:15 Dose: 100 mls/hr Vancomycin HCl 1 gm/ Dextrose 250 mls @ 166.667 mls/hr IVPB Q12 SHARIF Last Admin: 06/03/16 22:19 Dose: 166.667 mls/hr Dexmedetomidine HCl (Precedex 4 Mcg/Ml (100 Ml)) 100 mls @ 3.645 mls/hr IV .Q24H PRN; Protocol; 0.2 MCG/KG/HR PRN Reason: Agitation Last Admin: 06/03/16 23:30 Dose: 7.289 mls/hr Meropenem 1 gm/ Sodium (Chloride) 100 mls @ 100 mls/hr IVPB Q8 SHARIF PRN Reason: Protocol Last Admin: 06/04/16 06:10 Dose: 100 mls/hr Insulin Human Lispro (Humalog Med) 0 units SC ACHS SHARIF PRN Reason: Protocol Last Admin: 06/03/16 22:00 Dose: Not Given Methylprednisolone (Solu-Medrol) 40 mg IVP DAILY [facility] Last Admin: 03/18/17 09:10 Dose: 40 mg Pantoprazole Sodium (Protonix Inj) 40 mg IVP Q12 SHARIF Last Admin: 06/03/16 22:19 Dose: 40 mg - Labs Labs: 06/03/16 03:45 06/03/16 03:45 PT 16.7 Seconds (9.9-11.8) H 05/27/16 17:35 INR 1.55 (0.93-1.08) H 05/27/16 17:35 APTT 28.1 Seconds (23.7-30.8) 05/27/16 17:35 - Constitutional Appears: No Acute Distress - Head Exam Head Exam: ATRAUMATIC, NORMOCEPHALIC - ENT Exam Additional comments: ETT and OGT in place - Respiratory Exam Additional comments: mechanically ventilated with voluntary respiratory effort - Cardiovascular Exam Cardiovascular Exam: absent: Bradycardia, Tachycardia - GI/Abdominal Exam GI & Abdominal Exam: Soft, Hernia (right inguinal hernia with bowel extending into the scrotum). absent: Distended, Tenderness Additional comments: midline surgical incision well approximated except for one 0.5 cm opening in the superior pole. 2 fabiana in the superior pole and one in the inferior pole - Extremities Exam Extremities Exam: absent: Joint Swelling, Pedal Edema - Neurological Exam Additional comments: medically sedated - Psychiatric Exam Additional comments: medically sedated - Skin Skin Exam: Dry, Normal Color, Warm Assessment and Plan - Assessment and Plan (Free Text) Assessment: 85M w. B/L inguinal hernias and cecal mass, s/p ex-lap w. R hemicolectomy, POD# 13, complicated by GI bleed Plan -f/u today's H/H,continue to monitor, transfuse PRN -Continue tube feeds with residual checks -f/u WBC -f/u with family/ethics committee decision regarding possible tracheostomy -will continue to follow closely and plan for trach accordingly d/w Dr. Nicholas Mcgovern, PGY1
[2016-06-04 07:05] LABS: BLOOD UREA NITROGEN 35 mg/dL (7-21); CARBON DIOXIDE 33 mmol/L (21-33); CHLORIDE 109 mmol/L (98-107); GFR AFRICAN-AMERICAN > 60; GLUCOSE,RANDOM 114 mg/dL (70-110); POTASSIUM 3.9 mmol/L (3.6-5.0); SODIUM 147 mmol/L (132-148)
[2016-06-04 07:06] LABS: ALB/GLOB RATIO 0.7 (1.1-1.8); ALKALINE PHOSPHATASE 126 U/L (38-133); ALT/SGPT 69 U/L (7-56); AST/SGOT 98 U/L (15-59); BILIRUBIN,TOTAL 0.8 mg/dL (0.2-1.3); CALCIUM 7.9 mg/dL (8.4-10.5); MAGNESIUM 2.5 mg/dL (1.7-2.2); TOTAL PROTEIN 5.4 g/dL (5.8-8.3)
[2016-06-04 07:09] LABS: BASO # 0.03 K/mm3 (0.0-2.0); BASO % 0.1 % (0.0-3.0); GRAN # 34.14 (1.4-6.5); GRAN % 92.6 % (50.0-68.0); HEMATOCRIT 39.9 % (42.0-52.0); LYMPH # 1.6 (1.2-3.4); LYMPH % 4.3 % (22.0-35.0); MEAN CELL VOLUME 92.1 fL (80.0-105.0); MEAN CORPUSCULAR HEMOGLOBIN 28.4 pg (25.0-35.0); MEAN CORPUSCULAR HGB CONC 30.8 g/dl (31.0-37.0); MEAN PLATELET VOLUME 12.4 fl (7.0-11.0); MONO # 1.1 (0.1-0.6); PLATELET COUNT 433 10^3/uL (120.0-450.0); RED CELL DISTRIBUTION WIDTH 19.3 % (11.5-14.5)
[2016-06-04] MEDS: Insulin Lispro (humaLOG) MEDIUM Coverage SC SCH ×4 (07:21→21:50)
[2016-06-04 07:56] LABS: WHITE BLOOD COUNT 36.9 10^3/ul (4.5-11.0)
[2016-06-04] MEDS: MethylPREDNISolone 40 mg Vial IVP SCH (09:01)
[2016-06-04] MEDS: Vancomycin 1 GM in Dextrose 5% In Water 250 ML IVPB SCH ×2 (09:01→21:52)
--- NOTE | 2016-06-04 11:55 | PN ---
DATE: 06/04/2016 NEUROLOGY PROGRESS NOTE The patient is lying on the bed, in no acute distress, on a ventilator. PHYSICAL EXAMINATION: VITAL SIGNS: Her blood pressure is 137/69. Heart rate is 88 per minute, breathing at a rate of 21 p er minute. His temperature is 98.6 degrees Fahrenheit. HEENT: Normocephalic, atraumatic. NECK: Supple. There are no carotid bruits. LUNGS: Clear. CARDIOVASCULAR: S1, S2 audible. No murmurs. ABDOMEN: Soft, nontender. Bowel sounds present. NEUROLOGIC EXAMINATION: MENTAL STATUS: The patient opens eyes on mild noxious stimuli. He does not follow any commands. CRANIAL NERVES: Pupils are 3 mm bilaterally reactive to light. Positive doll's eye movement. There is no facial asymmetry. He is not withdrawing any extremity to noxious painful stimuli. Reflexes a re absent. Plantars no response. LABORATORY DATA: Labs reviewed show WBC of 36.9, hemoglobin of 12.3, hematocrit of 39.9, and platele ts of 433. His sodium is 147, potassium 3.9, chloride 109, carbon dioxide content 33, BUN of 35, cre atinine 0.6, and glucose of 114. IMPRESSION: 1. Toxic metabolic encephalopathy. 2. Sepsis. 3. Respiratory failure. RECOMMENDATIONS: 1. The patient's mental status is slightly better with the patient opening his eyes more briskly to noxious stimuli. 2. The patient to be continued on IV antibiotics. 3. The patient to have ventilatory support. 4. Please continue supportive care and other treatment. Thank you for the opportunity to participate in the care of this patient. Sofía Zepeda MD cc: [id number] TT: 06/04/2016 11:55:18 Confirmation # [id number] Dictation # [id number] kate
--- NOTE | 2016-06-04 12:25 | RAD ---
HISTORY: ett COMPARISON: Chest x-ray performed 06/03/16 TECHNIQUE: Chest, one view. FINDINGS: Right IJ approach central venous catheter extends the cavoatrial junction. Nasogastric tube extends expected location of the stomach. Endotracheal tube extends expected location of the 3.5 cm. LUNGS: Hyperinflation. Chronic interstitial markings. Bilateral upper lobe and left lower lobe suspected to reflect superimposed infection. Please note that chest x-ray has limited sensitivity for the detection of pulmonary masses. PLEURA: Probable small left pleural effusion. No definite pneumothorax . CARDIOVASCULAR: The cardiomediastinal silhouette appears within normal limits of size. OSSEOUS STRUCTURES: Degenerative changes. VISUALIZED UPPER ABDOMEN: Unremarkable. OTHER FINDINGS: None. IMPRESSION: Right IJ approach central venous catheter extends the cavoatrial junction. Nasogastric tube extends expected location of the stomach. Endotracheal tube extends expected location of the 3.5 cm. Hyperinflation. Chronic interstitial markings. Bilateral upper lobe and left lower lobe suspected to reflect superimposed infection. Probable small left pleural effusion.
[2016-06-04] MEDS: Dexmedetomidine HCl 4mcg/ml 100 ML IV PRN (12:41)
--- NOTE | 2016-06-04 13:23 | CP.CCUPN ---
CCU Subjective - Physician Review Events Since Last Encounter (Free Text): 06/04/16 13:18 No acute events overnight No change in neurological function CCU Objective - Vital Signs / Intake & Output Intake and Output (Last 8hrs): Intake & Output 06/03/16 06/04/16 06/04/16 22:59 06:59 14:59 Intake Total 1232 1294 Output Total 1100 700 Balance 132 594 Weight 157 lb Intake: IV 564 734 Right Internal Jugular 564 734 Tube Feeding 90 360 TPN/PPN 378 Other 200 200 Output: Gastric Amount 0 0 Stomach 0 0 Urine 1100 700 2-way Urethral 1100 700 Emesis 0 0 Other: Voiding Method Indwelling Catheter Indwelling Catheter # Bowel Movements 0 3 - Physical Exam Head: Positive for: Atraumatic, Normocephalic. Negative for: Ecchymosis Pupils: Positive for: PERRL Extroacular Muscles: Positive for: EOMI Conjunctiva: Positive for: Normal. Negative for: Injected, Icteric Mouth: Positive for: Moist Mucous Membranes Pharnyx: Positive for: Normal. Negative for: ERYTHEMA Nose (Internal): Positive for: Normal Inspection, No Active Bleeding Neck: Positive for: Normal Range of Motion Respiratory/Chest: Positive for: Respiratory Distress, Other (Intubated. ). Negative for: Tachypneic Cardiovascular: Positive for: Regular Rate and Rhythm, Normal S1, S2 Abdomen: Positive for: Normal Bowel Sounds, Hernias. Negative for: Tenderness, Distention, Peritoneal Signs, Rebound, Guarding Rectal: Positive for: Gross Blood, Melena Genitourinary Male: Positive for: Testicle Tenderness, Hernias, Testicle Swelling, Other (Large [id number] R inguinal hernia: irreducible. 10x5cm L inguinal hernia : irreducible.). Negative for: Normal External Genitalia Upper Extremity: Positive for: Normal Inspection, Edema, Swelling. Negative for : Erythema Lower Extremity: Positive for: Normal Inspection, Edema, Swelling. Negative for : Cyanosis Neurological: Positive for: Other (no withdrawl from pain ) Skin: Positive for: Warm, Dry Psychiatric: Negative for: Alert, Oriented x 3, Normal Insight - Medications Active Medications: Active Medications Generic Name Dose Route Start Last Admin Trade Name Freq PRN Reason Stop Dose Admin Acetaminophen 650 mg 05/17/16 08:33 Tylenol 325mg Tab PO Q4H PRN FEVER, PAIN Albuterol/Ipratropium 3 ml 05/30/16 14:00 06/04/16 13:09 Duoneb 3 Mg/0.5 Mg (3 Ml) Ud IH 3 ml [id number] SHARIF Administration Metronidazole 100 mls @ 100 mls/hr 05/24/16 08:15 06/04/16 06:15 Flagyl IVPB 100 mls/hr Q8 SHARIF Administration Protocol Vancomycin HCl 1 gm/ Dextrose 250 mls @ 166.667 mls/hr 06/02/16 22:00 06/04/16 09:01 IVPB 166.667 mls/hr Q12 SHARIF Administration Dexmedetomidine HCl 100 mls @ 3.645 mls/hr 06/02/16 14:15 06/04/16 12:41 Precedex 4 Mcg/Ml (100 Ml) IV 7.289 mls/hr .Q24H PRN Administration Agitation Protocol 0.2 MCG/KG/HR Meropenem 1 gm/ Sodium 100 mls @ 100 mls/hr 06/03/16 08:45 06/04/16 06:10 Chloride IVPB 100 mls/hr Q8 SHARIF Administration Protocol Insulin Human Lispro 0 units 05/31/16 22:00 06/04/16 12:32 Humalog Med SC 1 units ACHS SHARIF Administration Protocol Methylprednisolone 40 mg 06/01/16 10:00 06/04/16 09:01 Solu-Medrol IVP 40 mg DAILY SHARIF Administration Pantoprazole Sodium 40 mg 06/01/16 10:00 06/04/16 09:01 Protonix Inj IVP 40 mg Q12 SHARIF Administration - Patient Studies Lab Studies: Microbiology Studies 06/01/16 00:50 Blood Culture - Preliminary Blood-Venous NO GROWTH AFTER 3 DAYS 06/01/16 00:47 Blood Culture - Preliminary Blood-Venous NO GROWTH AFTER 3 DAYS 06/01/16 06:00 Stool Culture - Final Stool NO SALMONELLA, SHIGELLA OR CAMPYLOBACTER ISOLATED. Lab Studies 06/04/16 06/04/16 06/03/16 Range/Units 06:49 06:28 15:59 WBC 36.9 H* D (4.5-11.0) 10^3/ul RBC 4.33 (3.5-6.1) 10^6/uL Hgb 12.3 L (14.0-18.0) gm/dL Hct 39.9 L (42.0-52.0) % MCV 92.1 (80.0-105.0) fL MCH 28.4 (25.0-35.0) pg MCHC 30.8 L (31.0-37.0) g/dl RDW 19.3 H (11.5-14.5) % Plt Count 433 (120.0-450.0) 10^3/uL MPV 12.4 H (7.0-11.0) fl Gran % 92.6 H (50.0-68.0) % Lymph % (Auto) 4.3 L (22.0-35.0) % [place] % (Auto) 3.0 (1.0-6.0) % Eos % (Auto) 0.0 L (1.5-5.0) % Baso % (Auto) 0.1 (0.0-3.0) % Gran # 34.14 H (1.4-6.5) Lymph # 1.6 (1.2-3.4) [place] # 1.1 H (0.1-0.6) Eos # 0.0 (0.0-0.7) Baso # 0.03 (0.0-2.0) K/mm3 pCO2 56 H (35-45) mm/Hg pO2 80.0 (80-100) mm/Hg HCO3 34.7 H (21-28) mmol/L ABG pH 7.40 (7.35-7.45) ABG Total CO2 36.4 H (22-28) mmol.L ABG O2 Saturation 97.0 (95-98) % ABG O2 Content 16.2 (15-23) ML/dl ABG Base Excess 8.2 H (-2.0-3.0) mmol/L ABG Hemoglobin 12.1 (11.7-17.4) g/dL ABG Carboxyhemoglobin 2.1 H (0.5-1.5) % POC ABG HHb (Measured) 2.9 (0-5) % ABG Methemoglobin 0.4 (0.0-3.0) % ABG O2 Capacity 16.7 (16-24) mL/dl Hgb O2 Saturation 94.6 L (95.0-98.0) % FiO2 60.0 % Sodium 147 (132-148) mmol/L Potassium 3.9 (3.6-5.0) mmol/L Chloride 109 H (98-107) mmol/L Carbon Dioxide 33 (21-33) mmol/L Anion Gap 9 L (10-20) BUN 35 H (7-21) mg/dL Creatinine 0.6 (0.5-1.4) mg/dL Est GFR ( Amer) > 60 Est GFR (Non-Af Amer) > 60 POC Glucose (mg/dL) 149 H (65-110) mg/dL Random Glucose 114 H (70-110) mg/dL Calcium 7.9 L (8.4-10.5) mg/dL Phosphorus 3.0 (2.5-4.5) mg/dL Magnesium 2.5 H (1.7-2.2) mg/dL Total Bilirubin 0.8 (0.2-1.3) mg/dL AST 98 H (15-59) U/L ALT 69 H (7-56) U/L Alkaline Phosphatase 126 (38-133) U/L Total Protein 5.4 L (5.8-8.3) g/dL Albumin 2.3 L (3.0-4.8) g/dL Globulin 3.2 gm/dL Albumin/Globulin Ratio 0.7 L (1.1-1.8) 06/03/16 06/03/16 06/03/16 Range/Units 11:15 07:20 04:42 WBC (4.5-11.0) 10^3/ul RBC (3.5-6.1) 10^6/uL Hgb (14.0-18.0) gm/dL Hct (42.0-52.0) % MCV (80.0-105.0) fL MCH (25.0-35.0) pg MCHC (31.0-37.0) g/dl RDW (11.5-14.5) % Plt Count (120.0-450.0) 10^3/uL MPV (7.0-11.0) fl Gran % (50.0-68.0) % Lymph % (Auto) (22.0-35.0) % [place] % (Auto) (1.0-6.0) % Eos % (Auto) (1.5-5.0) % Baso % (Auto) (0.0-3.0) % Gran # (1.4-6.5) Lymph # (1.2-3.4) [place] # (0.1-0.6) Eos # (0.0-0.7) Baso # (0.0-2.0) K/mm3 pCO2 (35-45) mm/Hg pO2 (80-100) mm/Hg HCO3 (21-28) mmol/L ABG pH (7.35-7.45) ABG Total CO2 (22-28) mmol.L ABG O2 Saturation (95-98) % ABG O2 Content (15-23) ML/dl ABG Base Excess (-2.0-3.0) mmol/L ABG Hemoglobin (11.7-17.4) g/dL ABG Carboxyhemoglobin (0.5-1.5) % POC ABG HHb (Measured) (0-5) % ABG Methemoglobin (0.0-3.0) % ABG O2 Capacity (16-24) mL/dl Hgb O2 Saturation (95.0-98.0) % FiO2 % Sodium (132-148) mmol/L Potassium (3.6-5.0) mmol/L Chloride (98-107) mmol/L Carbon Dioxide (21-33) mmol/L Anion Gap (10-20) BUN (7-21) mg/dL Creatinine (0.5-1.4) mg/dL Est GFR ( Amer) Est GFR (Non-Af Amer) POC Glucose (mg/dL) 169 H 111 H 119 H (65-110) mg/dL Random Glucose (70-110) mg/dL Calcium (8.4-10.5) mg/dL Phosphorus (2.5-4.5) mg/dL Magnesium (1.7-2.2) mg/dL Total Bilirubin (0.2-1.3) mg/dL AST (15-59) U/L ALT (7-56) U/L Alkaline Phosphatase (38-133) U/L Total Protein (5.8-8.3) g/dL Albumin (3.0-4.8) g/dL Globulin gm/dL Albumin/Globulin Ratio (1.1-1.8) 06/02/16 06/02/16 Range/Units 12:56 08:56 WBC (4.5-11.0) 10^3/ul RBC (3.5-6.1) 10^6/uL Hgb (14.0-18.0) gm/dL Hct (42.0-52.0) % MCV (80.0-105.0) fL MCH (25.0-35.0) pg MCHC (31.0-37.0) g/dl RDW (11.5-14.5) % Plt Count (120.0-450.0) 10^3/uL MPV (7.0-11.0) fl Gran % (50.0-68.0) % Lymph % (Auto) (22.0-35.0) % [place] % (Auto) (1.0-6.0) % Eos % (Auto) (1.5-5.0) % Baso % (Auto) (0.0-3.0) % Gran # (1.4-6.5) Lymph # (1.2-3.4) [place] # (0.1-0.6) Eos # (0.0-0.7) Baso # (0.0-2.0) K/mm3 pCO2 (35-45) mm/Hg pO2 (80-100) mm/Hg HCO3 (21-28) mmol/L ABG pH (7.35-7.45) ABG Total CO2 (22-28) mmol.L ABG O2 Saturation (95-98) % ABG O2 Content (15-23) ML/dl ABG Base Excess (-2.0-3.0) mmol/L ABG Hemoglobin (11.7-17.4) g/dL ABG Carboxyhemoglobin (0.5-1.5) % POC ABG HHb (Measured) (0-5) % ABG Methemoglobin (0.0-3.0) % ABG O2 Capacity (16-24) mL/dl Hgb O2 Saturation (95.0-98.0) % FiO2 % Sodium (132-148) mmol/L Potassium (3.6-5.0) mmol/L Chloride (98-107) mmol/L Carbon Dioxide (21-33) mmol/L Anion Gap (10-20) BUN (7-21) mg/dL Creatinine (0.5-1.4) mg/dL Est GFR ( Amer) Est GFR (Non-Af Amer) POC Glucose (mg/dL) 98 111 H (65-110) mg/dL Random Glucose (70-110) mg/dL Calcium (8.4-10.5) mg/dL Phosphorus (2.5-4.5) mg/dL Magnesium (1.7-2.2) mg/dL Total Bilirubin (0.2-1.3) mg/dL AST (15-59) U/L ALT (7-56) U/L Alkaline Phosphatase (38-133) U/L Total Protein (5.8-8.3) g/dL Albumin (3.0-4.8) g/dL Globulin gm/dL Albumin/Globulin Ratio (1.1-1.8) Laboratory Results - last 24 hr 06/02/16 06/02/16 06/03/16 08:56 12:56 04:42 WBC RBC Hgb Hct MCV MCH MCHC RDW Plt Count MPV Gran % Lymph % (Auto) [place] % (Auto) Eos % (Auto) Baso % (Auto) Gran # Lymph # [place] # Eos # Baso # pCO2 pO2 HCO3 ABG pH ABG Total CO2 ABG O2 Saturation ABG O2 Content ABG Base Excess ABG Hemoglobin ABG Carboxyhemoglobin POC ABG HHb (Measured) ABG Methemoglobin ABG O2 Capacity Hgb O2 Saturation FiO2 Sodium Potassium Chloride Carbon Dioxide Anion Gap BUN Creatinine Est GFR ( Amer) Est GFR (Non-Af Amer) POC Glucose (mg/dL) 111 H 98 119 H Random Glucose Calcium Phosphorus Magnesium Total Bilirubin AST ALT Alkaline Phosphatase Total Protein Albumin Globulin Albumin/Globulin Ratio 06/03/16 06/03/16 06/03/16 07:20 11:15 15:59 WBC RBC Hgb Hct MCV MCH MCHC RDW Plt Count MPV Gran % Lymph % (Auto) [place] % (Auto) Eos % (Auto) Baso % (Auto) Gran # Lymph # [place] # Eos # Baso # pCO2 pO2 HCO3 ABG pH ABG Total CO2 ABG O2 Saturation ABG O2 Content ABG Base Excess ABG Hemoglobin ABG Carboxyhemoglobin POC ABG HHb (Measured) ABG Methemoglobin ABG O2 Capacity Hgb O2 Saturation FiO2 Sodium Potassium Chloride Carbon Dioxide Anion Gap BUN Creatinine Est GFR ( Amer) Est GFR (Non-Af Amer) POC Glucose (mg/dL) 111 H 169 H 149 H Random Glucose Calcium Phosphorus Magnesium Total Bilirubin AST ALT Alkaline Phosphatase Total Protein Albumin Globulin Albumin/Globulin Ratio 06/04/16 06/04/16 06:28 06:49 WBC 36.9 H* D RBC 4.33 Hgb 12.3 L Hct 39.9 L MCV 92.1 MCH 28.4 MCHC 30.8 L RDW 19.3 H Plt Count 433 MPV 12.4 H Gran % 92.6 H Lymph % (Auto) 4.3 L [place] % (Auto) 3.0 Eos % (Auto) 0.0 L Baso % (Auto) 0.1 Gran # 34.14 H Lymph # 1.6 [place] # 1.1 H Eos # 0.0 Baso # 0.03 pCO2 56 H pO2 80.0 HCO3 34.7 H ABG pH 7.40 ABG Total CO2 36.4 H ABG O2 Saturation 97.0 ABG O2 Content 16.2 ABG Base Excess 8.2 H ABG Hemoglobin 12.1 ABG Carboxyhemoglobin 2.1 H POC ABG HHb (Measured) 2.9 ABG Methemoglobin 0.4 ABG O2 Capacity 16.7 Hgb O2 Saturation 94.6 L FiO2 60.0 Sodium 147 Potassium 3.9 Chloride 109 H Carbon Dioxide 33 Anion Gap 9 L BUN 35 H Creatinine 0.6 Est GFR ( Amer) > 60 Est GFR (Non-Af Amer) > 60 POC Glucose (mg/dL) Random Glucose 114 H Calcium 7.9 L Phosphorus 3.0 Magnesium 2.5 H Total Bilirubin 0.8 AST 98 H ALT 69 H Alkaline Phosphatase 126 Total Protein 5.4 L Albumin 2.3 L Globulin 3.2 Albumin/Globulin Ratio 0.7 L Fingerstick Blood Sugar Results: 157 Critical Care Progress Note - Ventilator Checklist Daily Sedation Vacation: Yes Daily Assessment of Readiness to Wean: Yes Daily Spontaneous Breathing Trial: Yes PUD Prophalyxis: Yes DVT Prophylaxis: Yes - Vent Settings MODE:: ASSIST CONTROL - Nutrition Nutrition: Nutrition Category Date Time Status NPO Diet [DIET] Diets 05/26/16 Breakfast Ordered Assessment/Plan - Assessment and Plan (Free Text) Assessment: 86 y/o m w/ resolving ARDS septic shock - off all vasopressors , vitals are WNL VDRF FIO2 50-60% keep pa02>55 AMS in the setting of developmental delay Able to withstand PS sbt trial x 90 minutes. Unclear if he would be able to sustain clearing secretions and maintain airway Also awaiting POA decisions on Trach and PEG? Currently on empiric abx, cx pending. ID following On PPn and Fedds per surgery , post op > 1 week . Poor prognosis director long term care. full code . cc time 55 min
--- NOTE | 2016-06-04 18:27 | CP.PCM.PN ---
Subjective - Date & Time of Evaluation Date of Evaluation: 06/04/16 Time of Evaluation: 16:30 - Subjective Subjective: Infectious Disease Follow Up: June 04, 2016 85 yo male with initial presentation for abdominal pain and abnormal CT scan sent from [facility] facility (I think [facility]). 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 Currently the patient appears comfortable. He is unable to give any relevant information due to a severe developmental delay. Patient is currently post-operative day #9 and has been displaying increased leukocytosis since the surgery. Patient himself is intubated and ventilated. He was brought to MICU and remain here since. He required intubation and ventilation. Signs of aspiration pneumonia. On meropenem for now. Persistent leukocytosis. Patient in critical condition. Right IJ placed by MICU team. Case discussed with Dr. Pringle and Dr. Molina. The patient is on Meropenem and Flagyl for antibiotic coverage. Leukocytosis remains elevated at 29.6 today. Patient remains in critical condition but seems to have no further deterioration. Patient did receive 6 U of PRBCs, 4 U of FFP, and 1 U of platelets during the first 24 hours in ICU. Surgery has asked for a C. diff study which is negative. Melena and blood clots from rectum have slowed down considerably. Patient has an extremely poor prognosis. 2 episode of black stools in the past 24 hours. There has been no improvement of the patient's mental status over the past few days. Currently off pressors and sedation. Poorly responsive. Very poor prognosis. Remains intubated and ventilated. Attempts to wean off ventilator. Mentally, no improvement. No family available. Objective - Vital Signs/Intake and Output Vital Signs (last 24 hours): Temp Pulse Resp BP Pulse Ox 98.6 F 108 H 34 H 150/76 94 L 06/04/16 16:00 06/04/16 16:00 06/04/16 08:00 06/04/16 15:00 06/04/16 15:00 Intake and Output: 06/04/16 06/04/16 06:59 18:59 Intake Total 1294 Output Total 700 Balance 594 - Medications Medications: Current Medications Acetaminophen (Tylenol 325mg Tab) 650 mg PO Q4H PRN PRN Reason: FEVER, PAIN Albuterol/Ipratropium (Duoneb 3 Mg/0.5 Mg (3 Ml) Ud) 3 ml IH [id number] [facility] Last Admin: 06/04/16 13:09 Dose: 3 ml Metronidazole (Flagyl) 100 mls @ 100 mls/hr IVPB Q8 SHARIF PRN Reason: Protocol Last Admin: 06/04/16 14:32 Dose: 100 mls/hr Vancomycin HCl 1 gm/ Dextrose 250 mls @ 166.667 mls/hr IVPB Q12 [facility] Last Admin: 06/04/16 09:01 Dose: 166.667 mls/hr Dexmedetomidine HCl (Precedex 4 Mcg/Ml (100 Ml)) 100 mls @ 3.645 mls/hr IV .Q24H PRN; Protocol; 0.2 MCG/KG/HR PRN Reason: Agitation Last Admin: 06/04/16 12:41 Dose: 7.289 mls/hr Meropenem 1 gm/ Sodium (Chloride) 100 mls @ 100 mls/hr IVPB Q8 SHARIF PRN Reason: Protocol Last Admin: 06/04/16 14:32 Dose: 100 mls/hr Insulin Human Lispro (Humalog Med) 0 units SC ACHS SHARIF PRN Reason: Protocol Last Admin: 06/04/16 16:32 Dose: 1 units Methylprednisolone (Solu-Medrol) 40 mg IVP DAILY [facility] Last Admin: 06/04/16 09:01 Dose: 40 mg Pantoprazole Sodium (Protonix Inj) 40 mg IVP Q12 [facility] Last Admin: 06/04/16 09:01 Dose: 40 mg - Labs Labs: 06/04/16 06:49 06/04/16 06:49 PT 16.7 Seconds (9.9-11.8) H 05/27/16 17:35 INR 1.55 (0.93-1.08) H 05/27/16 17:35 APTT 28.1 Seconds (23.7-30.8) 05/27/16 17:35 - Constitutional Appears: Non-toxic, No Acute Distress, Chronically Ill - Head Exam Additional comments: intubated and ventilated - Eye Exam Eye Exam: EOMI, PERRL Pupil Exam: NORMAL ACCOMODATION, PERRL - ENT Exam ENT Exam: Mucous Membranes Moist, Normal External Ear Exam, TM's Normal Bilaterally - Neck Exam Additional comments: intubated and ventilated - Respiratory Exam Respiratory Exam: Clear to Ausculation Bilateral, NORMAL BREATHING PATTERN. absent: Rales, Rhonchi, Wheezes - Cardiovascular Exam Cardiovascular Exam: REGULAR RHYTHM, RRR, +S1, +S2 - GI/Abdominal Exam GI & Abdominal Exam: Soft, Normal Bowel Sounds. absent: Distended, Tenderness - Extremities Exam Additional comments: thin and cachetic. edema +1-2 of the bilateral upper extremities. Scrotal swelling. mild edema of the lower extremities. - Neurological Exam Additional comments: Intubated, ventilated, and poorly responsive. - Psychiatric Exam Additional comments: Intubated, ventilated, and poorly responsive. Assessment and Plan - Assessment and Plan (Free Text) Assessment: 85 yo male with cecal mass and bilateral hernia had exploratory laparotomy with right hemicolectomy. The patient is unable to give any significant information when speaking with him. He is not complaining of pain. The patient leukocytosis remains elevated at 31.8 and was 38.9 yesterday. There is a mild left shift to the leukocytosis. Supportive care. Silva cultures sent. Had Proteus in urine culture over a week ago but more recent urine culture is negative for growth. No growth in recent cultures so far. C. Diff studies negative. Currently on Meropenem and Flagyl for antibiotic coverage. Supportive care. Extremely poor prognosis with care bordering on futility at this point. No improvement in mental status over the past few days. Remains in MICU and required intubation and ventilation. On antibiotics of Vancomycin, Meropenem, and Flagyl currently. Awaiting repeat cultures - negative to date at 5+ days. No further surgical interventions. Possible aspiration pneumonia. Bleed at anastomotic site. Patient is hemodynamically stable. CT when patient stable enough to do so. He is currently off pressors and sedation. Repeat Abdominal X-ray shows resolvement of SBO portion of disease. Patient remains critically ill and has an extremely poor prognosis. He remains intubated and ventilated. There are attempts to wean off ventilator. No family available for decision making for the patient. Thank you for allowing me to participate in the care of the patient, we will follow with you.
[2016-06-05] MEDS: Dexmedetomidine HCl 4mcg/ml 100 ML IV PRN ×3 (00:50→18:41)
[2016-06-05] MEDS: Albuterol-Ipratrop 3 mg / 0.5 (3 ml) UD IH SCH ×2 (02:20→20:20)
[2016-06-05] MEDS: metroNIDAZOLE IV 500 mg/100 ml 100 ML IVPB SCH ×3 (05:43→21:30)
[2016-06-05] MEDS: Meropenem 1 GM in Sodium Chloride 0.9% 100 ML IVPB SCH ×3 (05:44→22:00)
[2016-06-05 06:11] LABS: MEAN CELL VOLUME 91.9 fL (80.0-105.0); MEAN CORPUSCULAR HEMOGLOBIN 28.1 pg (25.0-35.0); MEAN CORPUSCULAR HGB CONC 30.6 g/dl (31.0-37.0); PLATELET COUNT 405 10^3/uL (120.0-450.0); RED CELL DISTRIBUTION WIDTH 19.1 % (11.5-14.5)
[2016-06-05 06:18] LABS: ALB/GLOB RATIO 0.7 (1.1-1.8); ALKALINE PHOSPHATASE 112 U/L (38-133); ALT/SGPT 43 U/L (7-56); AST/SGOT 54 U/L (15-59); BILIRUBIN,TOTAL 0.8 mg/dL (0.2-1.3); BLOOD UREA NITROGEN 29 mg/dL (7-21); CALCIUM 7.7 mg/dL (8.4-10.5); CARBON DIOXIDE 32 mmol/L (21-33); CHLORIDE 109 mmol/L (98-107); GFR AFRICAN-AMERICAN > 60; GLUCOSE,RANDOM 100 mg/dL (70-110); MAGNESIUM 2.3 mg/dL (1.7-2.2); PHOSPHOROUS 2.3 mg/dL (2.5-4.5); POTASSIUM 3.8 mmol/L (3.6-5.0); SODIUM 146 mmol/L (132-148); TOTAL PROTEIN 4.8 g/dL (5.8-8.3)
[2016-06-05 06:27] LABS: WHITE BLOOD COUNT 35.4 10^3/ul (4.5-11.0)
[2016-06-05 06:28] LABS: ADD MANUAL DIFF? YES
[2016-06-05 06:31] LABS: ARTERIAL BLOOD GAS O2 CAPACITY 15.2 mL/dl (16-24); ARTERIAL BLOOD GAS PH 7.46 (7.35-7.45); ARTERIAL BLOOD HGB O2 SAT 95.3 % (95.0-98.0); CARBOXYHEMOGLOBIN 2.1 % (0.5-1.5); HHB 1.4 % (0-5); METHEMOGLOBIN 1.2 % (0.0-3.0)
[2016-06-05 07:03] LABS: NEUTROPHIL 94 % (50.0-70.0); PLATELET ESTIMATE NORMAL (NORMAL)
[2016-06-05 07:04] LABS: HYPOCHROMIA 2+; LARGE PLATELETS PRESENT
--- NOTE | 2016-06-05 07:16 | PN ---
DATE: 06/04/2016 SUBJECTIVE: This patient was seen and evaluated earlier and discussed with mission commander. Remains on vent. PHYSICAL EXAMINATION: VITAL SIGNS: Afebrile, blood pressure 150/74, heart rate 106, O2 saturation is 94%. HEENT: Atraumatic, anicteric. NECK: Supple. HEART: S1, S2 heard. LUNGS: Bilateral air entry present. ABDOMEN: Soft. There is a surgical incision noticed. There is a right inguinal scrotal swelling no ticed. LOWER EXTREMITIES: Mild edema present. LABORATORY DATA: Hemoglobin 12.3, hematocrit 39.9, WBC is 36.9, platelets 433. 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 Postoperative course complicated by gastrointestinal bleeding, small bowel obstruction, sepsis, pneumonia. The patient remains on vent, unresponsive. Awaiting for the family to communicate. RECOMMENDATIONS: At the present time the decision is to continue antibiotics. Continue the present medications of the treatment. Prognosis remains guarded. Followup of the hemoglobin and hematocrit. Thank you very much for allowing us to participate in the care of the patient. Ann Luna MD cc: [id number] TT: 06/05/2016 07:15:45 Confirmation # [id number] Dictation # [id number]
--- NOTE | 2016-06-05 08:19 | PN ---
DATE: 06/04/2016 This 86-year-old male remains hospitalized in ICU bed #1. He remains ventilatory dependent in the setting of aspiration pneumonia, ARDS and respiratory failure. The concern about extubation besides altered mental status and would he be safe to sustain clearing secretions and maintain an airway. To date, there has been no response from his family members and this delays decisions regarding tracheostomy and PEG tube placement. The patient remains with altered mental status. He has no response withdrawing to any noxious painful stimuli, peripheral reflexes remain absent and plantar testing elicit no response. PHYSICAL EXAMINATION: GENERAL: He is in a sinus rhythm on the monitoring specialist. VITAL SIGNS: His temperature is 98.6, pulse 88, blood pressure 137/69. He is on 60% FiO2, 6 of PEEP with blood gas showing pH 7.40, pCO2 56, pO2 80, and bicarbonate 34. HEAD: Normocephalic, atraumatic. EYES: No icterus. EARS: Clear. THROAT: Noninjected. NECK: Supple. HEART: S1, S2. LUNGS: With occasional rhonchi bilaterally. ABDOMEN: With a well-healed vertical incisional scar. No organomegaly, no rebound, no guarding. EXTREMITIES: He is wearing sequential anti-embolism stockings. No edema. Legs are warm to touch. PSYCHOLOGICAL: Sedated. NEUROLOGICAL: Unresponsive. SKIN: Without rash or breakdown. LABORATORIES: White count 36,900, hemoglobin 12.3, hematocrit 39.9, platelets 433,000. Sodium 147, K 3.9, chloride 109, bicarbonate 33, BUN 35, creatinine 0.6, random blood sugar was 114. Phosphorus 3.0, normal. Magnesium 2.5. Bilirubin 0.8, AST 98, ALT 69, alkaline phosphatase 126. Emesis for blood positive. Stool, no salmonella, Shigella or campylobacter. Stool C. diff toxin from 06/01, negative antigen, negative toxin. Blood no growth. Urine culture no growth. IMPRESSION: An 86-year-old male status post right hemicolectomy for adenocarcinoma of the colon with postoperative complication of gastrointestinal hemorrhage, presumed secondary at the anastomotic site and stress gastritis, complicated by aspiration pneumonia, acute respiratory distress syndrome, respiratory failure, toxic metabolic encephalopathy and now sepsis, failure to wean off the ventilator, anemia, leukocytosis with multiple electrolyte and hematological disturbances. PLAN: At present is to maintain ventilatory support. He remains a full code in the absence of a family member to discuss the case with further. The ethics committee has been involved. They have sent a certified letter to his cousin requesting his help in this matter. At present, he remains on IV antibiotics under the direction of Dr. Victoria from infectious disease including vancomycin 1 gram q. 12, meropenem 1 gram IV q. 8 and Flagyl 500 mg IV q. 8. He receives Solu-Medrol 40 mg IV daily, Protonix 40 mg IV q. 12, regular insulin, medium Humalog insulin coverage protocol before mealtime and at bedtime, DuoNeb nebulizers and pulmonary toiletry. He continues to be followed by neurology, infectious disease, surgery, gastroenterology, the carrier driver and palliative care as well as oncology/hematology. He will have repeat blood gases CBC, comprehensive metabolic panel, phosphorus and magnesium levels in the morning. His overall prognosis remains guarded. Approximately sixty minutes was spent in the care, coordination of care, discussion of care with the nursing staff, co -consultants of this patient and overall prognosis is poor. Codi Pringle MD cc: [id number] TT: 06/04/2016 14:24:15 Confirmation # [id number] Dictation # [id number] [id number]
--- NOTE | 2016-06-05 08:31 | CP.PCM.PN ---
Subjective - Date & Time of Evaluation Date of Evaluation: 06/05/16 Time of Evaluation: 08:26 - Subjective Subjective: SURGERY NOTE FOR DR. HERBERT 86M seen and examined at bedside. Patient is intubated on FiO2 of 60% and PEEP6. Sedated on precedex. Objective - Vital Signs/Intake and Output Vital Signs (last 24 hours): Temp Pulse Resp BP Pulse Ox 98.6 F 91 H 34 H 127/66 94 L 06/05/16 04:00 06/05/16 05:00 06/04/16 08:00 06/05/16 05:00 06/05/16 05:00 Intake and Output: 06/05/16 06/05/16 06:59 18:59 Intake Total 806 Output Total 1000 Balance -194 - Medications Medications: Current Medications Acetaminophen (Tylenol 325mg Tab) 650 mg PO Q4H PRN PRN Reason: FEVER, PAIN Albuterol/Ipratropium (Duoneb 3 Mg/0.5 Mg (3 Ml) Ud) 3 ml IH [id number] SHARIF Last Admin: 06/05/16 02:20 Dose: 3 ml Metronidazole (Flagyl) 100 mls @ 100 mls/hr IVPB Q8 SHARIF PRN Reason: Protocol Last Admin: 06/05/16 05:43 Dose: 100 mls/hr Vancomycin HCl 1 gm/ Dextrose 250 mls @ 166.667 mls/hr IVPB Q12 SHARIF Last Admin: 06/04/16 21:52 Dose: 166.667 mls/hr Dexmedetomidine HCl (Precedex 4 Mcg/Ml (100 Ml)) 100 mls @ 3.645 mls/hr IV .Q24H PRN; Protocol; 0.2 MCG/KG/HR PRN Reason: Agitation Last Admin: 06/05/16 00:50 Dose: 13 mls/hr Meropenem 1 gm/ Sodium (Chloride) 100 mls @ 100 mls/hr IVPB Q8 SHARIF PRN Reason: Protocol Last Admin: 06/05/16 05:44 Dose: 100 mls/hr Insulin Human Lispro (Humalog Med) 0 units SC ACHS SHARIF PRN Reason: Protocol Last Admin: 06/04/16 21:50 Dose: Not Given Methylprednisolone (Solu-Medrol) 40 mg IVP DAILY COUNTS INCLUDE 234 BEDS AT THE [facility] Last Admin: 03/19/17 09:01 Dose: 40 mg Pantoprazole Sodium (Protonix Inj) 40 mg IVP Q12 SHARIF Last Admin: 06/04/16 21:52 Dose: 40 mg - Labs Labs: 06/05/16 05:30 06/05/16 05:30 PT 16.7 Seconds (9.9-11.8) H 05/27/16 17:35 INR 1.55 (0.93-1.08) H 05/27/16 17:35 APTT 28.1 Seconds (23.7-30.8) 05/27/16 17:35 - Respiratory Exam Respiratory Exam: Clear to Ausculation Bilateral, NORMAL BREATHING PATTERN Additional comments: Intubated - Cardiovascular Exam Cardiovascular Exam: REGULAR RHYTHM, +S1, +S2 - GI/Abdominal Exam GI & Abdominal Exam: Soft. absent: Distended, Firm, Guarding, Rigid, Rebound Additional comments: incision CDI, three fabiana in place, bilateral inguinal hernias - Skin Skin Exam: Dry, Normal Color, Warm Assessment and Plan - Assessment and Plan (Free Text) Assessment: 85M w. B/L inguinal hernias and cecal mass, s/p ex-lap w. R hemicolectomy, POD# 14, with persistently elevated WBC Plan: -Continue tube feeds with residual checks -Monitor WBC -f/u with family/ethics committee decision regarding possible tracheostomy -will continue to follow closely and plan for trach accordingly - Repeat C-Diff Further recs discuss with Dr. Nicholas Cordero, PGY1
[2016-06-05] MEDS: Insulin Lispro (humaLOG) MEDIUM Coverage SC SCH ×3 (09:03→22:04)
[2016-06-05] MEDS: Vancomycin 1 GM in Dextrose 5% In Water 250 ML IVPB SCH ×2 (10:57→22:05)
--- NOTE | 2016-06-05 10:58 | PN ---
DATE: 06/05/2016 The patient is lying on the bed, on a ventilator, mildly sedated. PHYSICAL EXAMINATION: VITAL SIGNS: His blood pressure is 127/66, heart rate is 91 per minute, breathing at a rate of 20 pe r minute, and his temperature is 98.6 degrees Fahrenheit. HEENT: Normocephalic, atraumatic. NECK: Supple. There are no carotid bruits. LUNGS: Clear. CARDIOVASCULAR: S1, S2 audible. No murmurs. ABDOMEN: Soft and nontender. Bowel sounds are present. NEUROLOGIC EXAMINATION: MENTAL STATUS: The patient is mildly sedated. He minimally opens eyes to noxious painful stimuli. He does not follow any commands. CRANIAL NERVES: Pupils are 3 mm bilaterally reactive to light. Positive doll's eye. Positive corne al reflex. He does not withdraw to noxious painful stimuli; however, he does grimace to pain. LABORATORY DATA: Reviewed, shows WBC of 35.4, hemoglobin of 10.7, hematocrit 35.0 and platelets of 4 05. His sodium is 146, potassium 3.8, chloride 109, carbon dioxide 32, BUN of 29, creatinine of 0.5, and glucose of 100. IMPRESSION: 1. Toxic metabolic encephalopathy. 2. Sepsis. 3. Respiratory failure. RECOMMENDATIONS: 1. The patient to be continued on IV antibiotics. 2. The patient has shown very minimal improvement in his neurologic status with minimal opening of t he eyes. 3. The patient to continue to have ventilatory support. 4. Please continue supportive care and other treatment. Thank you for the opportunity to participate in the care of this patient. Sofía Zepeda MD cc: [id number] TT: 06/05/2016 10:56:52 Confirmation # [id number] Dictation # [id number] maliha
[2016-06-05] MEDS: MethylPREDNISolone 40 mg Vial IVP SCH (11:06)
--- NOTE | 2016-06-05 11:48 | CP.CCUPN ---
<Roger Britton - Last Filed: 06/05/16 11:53> CCU Subjective - Physician Review Subjective (Free Text): Pt s&e w ICU attending. Pt is on sedation, intubated. fio2 60, 6, 20, 350. On tube feed. watery bilious BM. No blood. Pt is minimally unarousable. Able to withstand PS sbt trial x 90 minutes over the weekend. 06/05/16 12:01 CCU Objective - Vital Signs / Intake & Output Intake and Output (Last 8hrs): Intake & Output 06/04/16 06/05/16 06/05/16 22:59 06:59 14:59 Intake Total 1669 806 Output Total 1175 1000 Balance 494 -194 Weight 161 lb 6.4 oz Intake: IV 564 156 Right Internal Jugular 564 156 Tube Feeding 705 Other 400 650 Output: Gastric Amount 0 Stomach 0 Urine 900 1000 2-way Urethral 900 1000 Stool 275 Emesis 0 Other: Voiding Method Indwelling Catheter # Bowel Movements 100 - Physical Exam Head: Positive for: Atraumatic, Normocephalic. Negative for: Ecchymosis Conjunctiva: Negative for: Injected, Icteric Mouth: Positive for: Moist Mucous Membranes Pharnyx: Positive for: Normal. Negative for: ERYTHEMA Nose (Internal): Positive for: Normal Inspection, No Active Bleeding Respiratory/Chest: Positive for: Respiratory Distress, Other (Intubated. ). Negative for: Tachypneic Cardiovascular: Positive for: Regular Rate and Rhythm, Normal S1, S2 Abdomen: Positive for: Normal Bowel Sounds, Hernias. Negative for: Tenderness, Distention, Peritoneal Signs, Rebound, Guarding Genitourinary Male: Positive for: Testicle Tenderness, Hernias, Testicle Swelling, Other (Large [id number] R inguinal hernia: irreducible. 10x5cm L inguinal hernia : irreducible.). Negative for: Normal External Genitalia Upper Extremity: Positive for: Edema, Swelling. Negative for: Erythema Lower Extremity: Positive for: Edema, Swelling. Negative for: Cyanosis Neurological: Positive for: Other (no withdrawl from pain ) Skin: Positive for: Warm, Dry Psychiatric: Negative for: Alert, Oriented x 3, Normal Insight - Medications Active Medications: Active Medications Generic Name Dose Route Start Last Admin Trade Name Freq PRN Reason Stop Dose Admin Acetaminophen 650 mg 05/17/16 08:33 Tylenol 325mg Tab PO Q4H PRN FEVER, PAIN Albuterol/Ipratropium 3 ml 05/30/16 14:00 06/05/16 02:20 Duoneb 3 Mg/0.5 Mg (3 Ml) Ud IH 3 ml [id number] SHARIF Administration Metronidazole 100 mls @ 100 mls/hr 05/24/16 08:15 06/05/16 05:43 Flagyl IVPB 100 mls/hr Q8 SHARIF Administration Protocol Vancomycin HCl 1 gm/ Dextrose 250 mls @ 166.667 mls/hr 06/02/16 22:00 06/05/16 10:57 IVPB 166.667 mls/hr Q12 SHARIF Administration Dexmedetomidine HCl 100 mls @ 3.645 mls/hr 06/02/16 14:15 06/05/16 09:05 Precedex 4 Mcg/Ml (100 Ml) IV 12.756 mls/hr .Q24H PRN Administration Agitation Protocol 0.2 MCG/KG/HR Meropenem 1 gm/ Sodium 100 mls @ 100 mls/hr 06/03/16 08:45 06/05/16 05:44 Chloride IVPB 100 mls/hr Q8 SHARIF Administration Protocol Insulin Human Lispro 0 units 05/31/16 22:00 06/05/16 11:39 Humalog Med SC Not Given ACHS [facility] Protocol Methylprednisolone 40 mg 06/01/16 10:00 06/05/16 11:06 Solu-Medrol IVP 40 mg DAILY SHARIF Administration Pantoprazole Sodium 40 mg 06/01/16 10:00 06/05/16 11:06 Protonix Inj IVP 40 mg Q12 SHARIF Administration - Patient Studies Lab Studies: Microbiology Studies 06/01/16 00:50 Blood Culture - Preliminary Blood-Venous NO GROWTH AFTER 4 DAYS 06/01/16 00:47 Blood Culture - Preliminary Blood-Venous NO GROWTH AFTER 4 DAYS Lab Studies 06/05/16 06/05/16 Range/Units 06:15 05:30 WBC 35.4 H* (4.5-11.0) 10^3/ul RBC 3.81 (3.5-6.1) 10^6/uL Hgb 10.7 L (14.0-18.0) gm/dL Hct 35.0 L (42.0-52.0) % MCV 91.9 (80.0-105.0) fL MCH 28.1 (25.0-35.0) pg MCHC 30.6 L (31.0-37.0) g/dl RDW 19.1 H (11.5-14.5) % Plt Count 405 (120.0-450.0) 10^3/uL MPV 12.0 H (7.0-11.0) fl Gran % Selling Underwriter Lymph % (Auto) Selling Underwriter Mcnairy % (Auto) Selling Underwriter Eos % (Auto) Selling Underwriter Baso % (Auto) Selling Underwriter Gran # Selling Underwriter Lymph # Selling Underwriter Mcnairy # Selling Underwriter Eos # Selling Underwriter Baso # Selling Underwriter Neutrophils % (Manual) 94 H (50.0-70.0) % Lymphocytes % (Manual) 3 L (22.0-35.0) % Monocytes % (Manual) 3 (1.0-6.0) % Platelet Evaluation Normal (NORMAL) Large Platelets Present Hypochromasia 2+ pCO2 45 (35-45) mm/Hg pO2 96.0 (80-100) mm/Hg HCO3 32.0 H (21-28) mmol/L ABG pH 7.46 H (7.35-7.45) ABG Total CO2 33.4 H (22-28) mmol.L ABG O2 Saturation 98.6 H (95-98) % ABG O2 Content 15.0 (15-23) ML/dl ABG Base Excess 7.3 H (-2.0-3.0) mmol/L ABG Hemoglobin 11.1 L (11.7-17.4) g/dL ABG Carboxyhemoglobin 2.1 H (0.5-1.5) % POC ABG HHb (Measured) 1.4 (0-5) % ABG Methemoglobin 1.2 (0.0-3.0) % ABG O2 Capacity 15.2 L (16-24) mL/dl Hgb O2 Saturation 95.3 (95.0-98.0) % FiO2 60.0 % Sodium 146 (132-148) mmol/L Potassium 3.8 (3.6-5.0) mmol/L Chloride 109 H (98-107) mmol/L Carbon Dioxide 32 (21-33) mmol/L Anion Gap 9 L (10-20) BUN 29 H (7-21) mg/dL Creatinine 0.5 (0.5-1.4) mg/dL Est GFR ( Amer) > 60 Est GFR (Non-Af Amer) > 60 Random Glucose 100 (70-110) mg/dL Calcium 7.7 L (8.4-10.5) mg/dL Phosphorus 2.3 L (2.5-4.5) mg/dL Magnesium 2.3 H (1.7-2.2) mg/dL Total Bilirubin 0.8 (0.2-1.3) mg/dL AST 54 (15-59) U/L ALT 43 (7-56) U/L Alkaline Phosphatase 112 (38-133) U/L Total Protein 4.8 L (5.8-8.3) g/dL Albumin 2.0 L (3.0-4.8) g/dL Globulin 2.8 gm/dL Albumin/Globulin Ratio 0.7 L (1.1-1.8) Laboratory Results - last 24 hr 06/05/16 06/05/16 05:30 06:15 WBC 35.4 H* RBC 3.81 Hgb 10.7 L Hct 35.0 L MCV 91.9 MCH 28.1 MCHC 30.6 L RDW 19.1 H Plt Count 405 MPV 12.0 H Gran % Selling Underwriter Lymph % (Auto) Selling Underwriter Mcnairy % (Auto) Selling Underwriter Eos % (Auto) Selling Underwriter Baso % (Auto) Selling Underwriter Gran # Selling Underwriter Lymph # Selling Underwriter Mcnairy # Selling Underwriter Eos # Selling Underwriter Baso # Selling Underwriter Neutrophils % (Manual) 94 H Lymphocytes % (Manual) 3 L Monocytes % (Manual) 3 Platelet Evaluation Normal Large Platelets Present Hypochromasia 2+ pCO2 45 pO2 96.0 HCO3 32.0 H ABG pH 7.46 H ABG Total CO2 33.4 H ABG O2 Saturation 98.6 H ABG O2 Content 15.0 ABG Base Excess 7.3 H ABG Hemoglobin 11.1 L ABG Carboxyhemoglobin 2.1 H POC ABG HHb (Measured) 1.4 ABG Methemoglobin 1.2 ABG O2 Capacity 15.2 L Hgb O2 Saturation 95.3 FiO2 60.0 Sodium 146 Potassium 3.8 Chloride 109 H Carbon Dioxide 32 Anion Gap 9 L BUN 29 H Creatinine 0.5 Est GFR ( Amer) > 60 Est GFR (Non-Af Amer) > 60 Random Glucose 100 Calcium 7.7 L Phosphorus 2.3 L Magnesium 2.3 H Total Bilirubin 0.8 AST 54 ALT 43 Alkaline Phosphatase 112 Total Protein 4.8 L Albumin 2.0 L Globulin 2.8 Albumin/Globulin Ratio 0.7 L Fingerstick Blood Sugar Results: 142 Critical Care Progress Note - Nutrition Nutrition: Nutrition Category Date Time Status NPO Diet [DIET] Diets 05/26/16 Breakfast Ordered Assessment/Plan - Assessment and Plan (Free Text) Assessment: The patient is a 66 year old man with a history of developmental delay, iron deficiency anemia, and degenerative arthritis who was admitted to [facility] [place] [facility] [place] with bilateral, non-reducible inguinal hernias and a CT-scan showing a large cecal mass, concerning for malignancy. As a result, he underwent an exploratory laparotomy and right hemicolectomy (with pathology of cecal mass still pending) . Because of the hemicolectomy, and the large size of the patients bilateral inguinal hernias could not be repaired during the procedure. Post-operatively, the patient developed marked leukocytosis which is being treated with IV Merrem , vanco and Flagyl by ID consult. The CT scan shows an incarcerated right hernia sac with secondary small bowel obstruction, which general surgery manually reduced but reccuring. The bleeding scan shows active bleeding most likely from the sigmoid colon. Bleeding resolved. Pt intubated. Hypoxic respiratory failure ventilator dependent 2/2 aspiration pneumonia and ARDS Hemorrhagic shock 2/2 GI bleed: resolved. off pressors Neuro: Minimal response Mental Retardation Maintain normothermia EEG: Severe bihemispheric cerebral dysfunction CT: Old ischemia -Morphine, Ativan PRN -sedation: Precedex Neuro following CV: Hemodynamically stable: Off pressors Maintain MAP >65 Pulm: Able to withstand PS sbt trial x 90 minutes. CXR : b/l infiltration Maintain Sp02>90 , TV 6ml/kg IBW, Plateau pressure <30 PaO2 >55% Vent setting at 60% fio2/6/20/350 ABX per ID Lasix DCed Possible trach by surgery/ PEG by GI Duoneb Steroid Wean vent GI: Colon CA: S/P R nimo for SBO and cecal mass: Path-Invasive adenoCA of colon 4x5cm T3N0 Bloody BM: resolved, diarrhea now. Tube feed w OGT Protonix IV 40mg Hold PO meds Hold hepatin sub Q, colace GI on board Heme: 6 PRBC given WBC 35.4 today hgb: 10.7 Transfuse if Hgb <8 Heme/Onc consult for Colon CA persistent leukocytosis Renal/: Urine output 2L /24hrs. Cr 0.5 Hernia recurrent bilaterally Continue to monitor electrolytes will replace/replete as needed Lasix held ID: Urine cx 05/16 : Proteus sensitive for cefetpime and Cipro, Sputum cx: Yeast Leukocystosis 35.4 today. Silva- cultures pending Vanc/Merrem/Flagyl ID on board Endo: SSI , Accucheck q2 Maintain euglycemia GI ppx: PTX DVT ppx: SCDs Disposition: Guarded. Contact family for possible DNR/DNI Case seen, reviewed and discussed with attending <Duane BARRERA,Herbie H - Last Filed: 06/05/16 12:21> CCU Objective - Vital Signs / Intake & Output Intake and Output (Last 8hrs): Intake & Output 06/04/16 06/05/16 06/05/16 22:59 06:59 14:59 Intake Total 1669 806 Output Total 1175 1000 Balance 494 -194 Weight 161 lb 6.4 oz Intake: IV 564 156 Right Internal Jugular 564 156 Tube Feeding 705 Other 400 650 Output: Gastric Amount 0 Stomach 0 Urine 900 1000 2-way Urethral 900 1000 Stool 275 Emesis 0 Other: Voiding Method Indwelling Catheter # Bowel Movements 100 - Medications Active Medications: Active Medications Generic Name Dose Route Start Last Admin Trade Name Freq PRN Reason Stop Dose Admin Acetaminophen 650 mg 05/17/16 08:33 Tylenol 325mg Tab PO Q4H PRN FEVER, PAIN Albuterol/Ipratropium 3 ml 05/30/16 14:00 06/05/16 02:20 Duoneb 3 Mg/0.5 Mg (3 Ml) Ud IH 3 ml [id number] SHARIF Administration Metronidazole 100 mls @ 100 mls/hr 05/24/16 08:15 06/05/16 05:43 Flagyl IVPB 100 mls/hr Q8 SHARIF Administration Protocol Vancomycin HCl 1 gm/ Dextrose 250 mls @ 166.667 mls/hr 06/02/16 22:00 06/05/16 10:57 IVPB 166.667 mls/hr Q12 SHARIF Administration Dexmedetomidine HCl 100 mls @ 3.645 mls/hr 06/02/16 14:15 06/05/16 09:05 Precedex 4 Mcg/Ml (100 Ml) IV 12.756 mls/hr .Q24H PRN Administration Agitation Protocol 0.2 MCG/KG/HR Meropenem 1 gm/ Sodium 100 mls @ 100 mls/hr 06/03/16 08:45 06/05/16 05:44 Chloride IVPB 100 mls/hr Q8 SHARIF Administration Protocol Insulin Human Lispro 0 units 05/31/16 22:00 06/05/16 11:39 Humalog Med SC Not Given ACHS SHARIF Protocol Methylprednisolone 40 mg 06/01/16 10:00 06/05/16 11:06 Solu-Medrol IVP 40 mg DAILY SHARIF Administration Pantoprazole Sodium 40 mg 06/01/16 10:00 06/05/16 11:06 Protonix Inj IVP 40 mg Q12 SHARIF Administration - Patient Studies Lab Studies: Microbiology Studies 06/01/16 00:50 Blood Culture - Preliminary Blood-Venous NO GROWTH AFTER 4 DAYS 06/01/16 00:47 Blood Culture - Preliminary Blood-Venous NO GROWTH AFTER 4 DAYS Lab Studies 06/05/16 06/05/16 Range/Units 06:15 05:30 WBC 35.4 H* (4.5-11.0) 10^3/ul RBC 3.81 (3.5-6.1) 10^6/uL Hgb 10.7 L (14.0-18.0) gm/dL Hct 35.0 L (42.0-52.0) % MCV 91.9 (80.0-105.0) fL MCH 28.1 (25.0-35.0) pg MCHC 30.6 L (31.0-37.0) g/dl RDW 19.1 H (11.5-14.5) % Plt Count 405 (120.0-450.0) 10^3/uL MPV 12.0 H (7.0-11.0) fl Gran % Selling Underwriter Lymph % (Auto) Selling Underwriter Mcnairy % (Auto) Selling Underwriter Eos % (Auto) Selling Underwriter Baso % (Auto) Selling Underwriter Gran # Selling Underwriter Lymph # Selling Underwriter Mcnairy # Selling Underwriter Eos # Selling Underwriter Baso # Selling Underwriter Neutrophils % (Manual) 94 H (50.0-70.0) % Lymphocytes % (Manual) 3 L (22.0-35.0) % Monocytes % (Manual) 3 (1.0-6.0) % Platelet Evaluation Normal (NORMAL) Large Platelets Present Hypochromasia 2+ pCO2 45 (35-45) mm/Hg pO2 96.0 (80-100) mm/Hg HCO3 32.0 H (21-28) mmol/L ABG pH 7.46 H (7.35-7.45) ABG Total CO2 33.4 H (22-28) mmol.L ABG O2 Saturation 98.6 H (95-98) % ABG O2 Content 15.0 (15-23) ML/dl ABG Base Excess 7.3 H (-2.0-3.0) mmol/L ABG Hemoglobin 11.1 L (11.7-17.4) g/dL ABG Carboxyhemoglobin 2.1 H (0.5-1.5) % POC ABG HHb (Measured) 1.4 (0-5) % ABG Methemoglobin 1.2 (0.0-3.0) % ABG O2 Capacity 15.2 L (16-24) mL/dl Hgb O2 Saturation 95.3 (95.0-98.0) % FiO2 60.0 % Sodium 146 (132-148) mmol/L Potassium 3.8 (3.6-5.0) mmol/L Chloride 109 H (98-107) mmol/L Carbon Dioxide 32 (21-33) mmol/L Anion Gap 9 L (10-20) BUN 29 H (7-21) mg/dL Creatinine 0.5 (0.5-1.4) mg/dL Est GFR ( Amer) > 60 Est GFR (Non-Af Amer) > 60 Random Glucose 100 (70-110) mg/dL Calcium 7.7 L (8.4-10.5) mg/dL Phosphorus 2.3 L (2.5-4.5) mg/dL Magnesium 2.3 H (1.7-2.2) mg/dL Total Bilirubin 0.8 (0.2-1.3) mg/dL AST 54 (15-59) U/L ALT 43 (7-56) U/L Alkaline Phosphatase 112 (38-133) U/L Total Protein 4.8 L (5.8-8.3) g/dL Albumin 2.0 L (3.0-4.8) g/dL Globulin 2.8 gm/dL Albumin/Globulin Ratio 0.7 L (1.1-1.8) Laboratory Results - last 24 hr 06/05/16 06/05/16 05:30 06:15 WBC 35.4 H* RBC 3.81 Hgb 10.7 L Hct 35.0 L MCV 91.9 MCH 28.1 MCHC 30.6 L RDW 19.1 H Plt Count 405 MPV 12.0 H Gran % Selling Underwriter Lymph % (Auto) Selling Underwriter Mcnairy % (Auto) Selling Underwriter Eos % (Auto) Selling Underwriter Baso % (Auto) Selling Underwriter Gran # Selling Underwriter Lymph # Selling Underwriter Mcnairy # Selling Underwriter Eos # Selling Underwriter Baso # Selling Underwriter Neutrophils % (Manual) 94 H Lymphocytes % (Manual) 3 L Monocytes % (Manual) 3 Platelet Evaluation Normal Large Platelets Present Hypochromasia 2+ pCO2 45 pO2 96.0 HCO3 32.0 H ABG pH 7.46 H ABG Total CO2 33.4 H ABG O2 Saturation 98.6 H ABG O2 Content 15.0 ABG Base Excess 7.3 H ABG Hemoglobin 11.1 L ABG Carboxyhemoglobin 2.1 H POC ABG HHb (Measured) 1.4 ABG Methemoglobin 1.2 ABG O2 Capacity 15.2 L Hgb O2 Saturation 95.3 FiO2 60.0 Sodium 146 Potassium 3.8 Chloride 109 H Carbon Dioxide 32 Anion Gap 9 L BUN 29 H Creatinine 0.5 Est GFR ( Amer) > 60 Est GFR (Non-Af Amer) > 60 Random Glucose 100 Calcium 7.7 L Phosphorus 2.3 L Magnesium 2.3 H Total Bilirubin 0.8 AST 54 ALT 43 Alkaline Phosphatase 112 Total Protein 4.8 L Albumin 2.0 L Globulin 2.8 Albumin/Globulin Ratio 0.7 L Critical Care Progress Note - Nutrition Nutrition: Nutrition Category Date Time Status NPO Diet [DIET] Diets 05/26/16 Breakfast Ordered Attending/Attestation - Attestation I have personally seen and examined this patient.: Yes I have fully participated in the care of the patient.: Yes I have reviewed all pertinent clinical information: Yes Notes (Text): 06/05/16 12:19 86 y/o M w/ resolving ARDS Currently on 60% FIO@ able to withstand SBT P.S trial 90 minutes today with RR 30-34. Unable to extubate as the mental status is unstable to protect airway. Would be safer to plan for Trachesotomy and PEG, would need guidance from POA/ Paliative care . On empiric abx for elevated leukocytosis , w/o fevers. CT abd done last week without source. Need to discuss with ID and Surgery if there is any utility for repeat CT? On Tube feeds tolerating with some loose stools. Poor outcome secondary to oncology hx and resolving ARDS and Septic shock with baseline Developmental delay. cc time 55 min
--- NOTE | 2016-06-05 12:52 | PN ---
DATE: 06/05/2016 CRITICAL CARE PROGRESS NOTE This 86-year-old male was examined at his bedside in the presence of his nurse, Madelin Thacker. The patient remains intubated. He is being sedated with Precedex because of agitation when not mildly sedated. The patient is responsive to painful stimuli by trying to open his eyes. He is ventilatory dependent for secretions and respiratory failure and is being treated with parenteral antibiotics for aspiration pneumonia and sepsis. The patient has not been able to be weaned successfully off the ventilator. To date, no family members have been reached regarding further discussion of management including code status or tracheostomy and patient has had no further active GI bleeding from his rectum or NG tubes and is being fed half strength Jevity at 60 mL per hour with aspiration precautions. ekg monitor tech shows a sinus rhythm to sinus tachycardia. PHYSICAL EXAMINATION: VITAL SIGNS: Temperature 98.6. His vent is set for 30 breaths per minute. Pulse is 91 and blood pressure 127/66. His ventilator is delivering 60% FiO2 with a PEEP of 6. I's and O's show 806 mL in and 1000 mL out to date. HEAD: Normocephalic, atraumatic. EYES: No icterus. EARS: Clear. THROAT: Noninjected, with ET tube in place. NECK: Supple. HEART: Regular S1, S2. LUNGS: With rhonchi bilaterally and occasional rhonchi and wheezing. ABDOMEN: Soft. EXTREMITIES: No clubbing, no cyanosis, no edema. He is wearing anti-embolism stockings and SCD compression stockings. VASCULAR: Legs warm to touch. NEUROLOGIC: Sedated. PSYCHOLOGICAL: Unresponsive. SKIN: Without rash. LABORATORY DATA: White count 35,400. Hemoglobin 10.7, hematocrit 35.0, platelets 405,000. His blood gas showed a pH of 7.46, pCO2 of 45, pO2 of 96, bicarb of 33 on an FiO2 of 60 with a PEEP of 6. Sodium 146, K 3.8, chloride 109 , bicarb 32, BUN 29, creatinine 0.5. Random blood sugar is 100. Magnesium level 2.3, bilirubin 0.8, AST 54, ALT 43 and alk phos 112. 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 PLAN: The plan at present is to await social service intervention in trying to reach a family member regarding decisions on code status and possible tracheostomy. He continues on IV vanco, IV Flagyl, IV meropenem under the direction of Dr. Fuentes Victoria from infectious disease. He continues on IV Protonix 40 mg IV q.12, Solu-Medrol 40 mg IV daily, Humalog insulin coverage before meals and at bedtime, DuoNeb nebulizers and pulmonary toiletry. He remains on palliative care followup, aspiration precautions, fall precautions, and DVT precautions with sequential compression device stockings. He is being monitored with daily blood work. He remains a FULL CODE in the absence of family members to advise other and his overall prognosis remains poor. Approximately sixty minutes was spent in the care, coordination of care, review of care and discussion of care with co-consultants today. Codi Pringle MD cc: [id number] TT: 06/05/2016 12:51:30 Confirmation # [id number] Dictation # [id number] MTDD
--- NOTE | 2016-06-05 15:04 | RAD ---
HISTORY: ett COMPARISON: 06/04/2016 FINDINGS: LUNGS: Extensive new opacity in the upper right lung suspicious for pneumonia. Increasing opacity at left lung base. PLEURA: No significant pleural effusion identified, no pneumothorax apparent. CARDIOVASCULAR: Normal heart size. Endotracheal tube positioned at least 2.5 cm above the tracheal flako. Appreciation of the flako is limited due to oblique positioning. Nasogastric tube extends to upper abdomen. Right internal jugular central venous catheter noted, grossly unchanged. OSSEOUS STRUCTURES: No significant abnormalities. VISUALIZED UPPER ABDOMEN: Normal. OTHER FINDINGS: None. IMPRESSION: New extensive opacity in the upper right lung and increasing opacity at left lung base. Findings suspicious for pneumonia. ET tube, NG tube and right IJ central venous catheter noted, all in grossly appropriate position.
--- NOTE | 2016-06-05 16:37 | CP.PCM.PN ---
Subjective - Date & Time of Evaluation Date of Evaluation: 06/05/16 Time of Evaluation: 14:30 - Subjective Subjective: Infectious Disease Follow Up: June 05, 2016 85 yo male with initial presentation for abdominal pain and abnormal CT scan sent from [facility] facility (I think [facility] [place]). 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 Currently the patient appears comfortable. He is unable to give any relevant information due to a severe developmental delay. Patient is currently post-operative day #14 and has been displaying increased leukocytosis since the surgery. Patient himself is intubated and ventilated. He was brought to MICU and remain here since. He required intubation and ventilation. Signs of aspiration pneumonia. On meropenem for now. Persistent leukocytosis. Patient in critical condition. Right IJ placed by MICU team. Case discussed with Dr. Pringle and Dr. Molina. The patient is on Meropenem and Flagyl for antibiotic coverage. Leukocytosis remains elevated at 35.4 today. Patient remains in critical condition but seems to have no further deterioration. Patient did receive 6 U of PRBCs, 4 U of FFP, and 1 U of platelets during the first 24 hours in ICU. Surgery has asked for a C. diff study which is negative. Melena and blood clots from rectum have slowed down considerably. Patient has an extremely poor prognosis. There has been no improvement of the patient's mental status over the past few days. The patient has been essentially non-responsive. Still very high leukocytosis. Currently off pressors and sedation. Poorly responsive. Very poor prognosis. Remains intubated and ventilated. Attempts to wean off ventilator. Mentally, no improvement. No family available. Objective - Vital Signs/Intake and Output Vital Signs (last 24 hours): Temp Pulse Resp BP Pulse Ox 98.6 F 98 H 34 H 131/70 97 06/05/16 04:00 06/05/16 16:00 06/04/16 08:00 06/05/16 15:00 06/05/16 15:09 Intake and Output: 06/05/16 06/05/16 06:59 18:59 Intake Total 806 Output Total 1000 Balance -194 - Medications Medications: Current Medications Acetaminophen (Tylenol 325mg Tab) 650 mg PO Q4H PRN PRN Reason: FEVER, PAIN Albuterol/Ipratropium (Duoneb 3 Mg/0.5 Mg (3 Ml) Ud) 3 ml IH [id number] SHARIF Last Admin: 06/05/16 02:20 Dose: 3 ml Metronidazole (Flagyl) 100 mls @ 100 mls/hr IVPB Q8 SHARIF PRN Reason: Protocol Last Admin: 06/05/16 13:40 Dose: 100 mls/hr Vancomycin HCl 1 gm/ Dextrose 250 mls @ 166.667 mls/hr IVPB Q12 SHARIF Last Admin: 06/05/16 10:57 Dose: 166.667 mls/hr Dexmedetomidine HCl (Precedex 4 Mcg/Ml (100 Ml)) 100 mls @ 3.645 mls/hr IV .Q24H PRN; Protocol; 0.2 MCG/KG/HR PRN Reason: Agitation Last Admin: 06/05/16 09:05 Dose: 12.756 mls/hr Meropenem 1 gm/ Sodium (Chloride) 100 mls @ 100 mls/hr IVPB Q8 SHARIF PRN Reason: Protocol Last Admin: 06/05/16 13:41 Dose: 100 mls/hr Insulin Human Lispro (Humalog Med) 0 units SC ACHS SHARIF PRN Reason: Protocol Last Admin: 06/05/16 11:39 Dose: Not Given Methylprednisolone (Solu-Medrol) 40 mg IVP DAILY [facility] Last Admin: 06/05/16 11:06 Dose: 40 mg Pantoprazole Sodium (Protonix Inj) 40 mg IVP Q12 [facility] Last Admin: 06/05/16 11:06 Dose: 40 mg - Labs Labs: 06/05/16 05:30 06/05/16 05:30 PT 16.7 Seconds (9.9-11.8) H 05/27/16 17:35 INR 1.55 (0.93-1.08) H 05/27/16 17:35 APTT 28.1 Seconds (23.7-30.8) 05/27/16 17:35 - Constitutional Appears: Non-toxic, No Acute Distress, Chronically Ill - Head Exam Head Exam: NORMOCEPHALIC Additional comments: intubated and ventilated - Eye Exam Eye Exam: EOMI, PERRL Pupil Exam: NORMAL ACCOMODATION, PERRL - ENT Exam ENT Exam: Mucous Membranes Moist, Normal External Ear Exam, TM's Normal Bilaterally - Neck Exam Neck Exam: Full ROM, Normal Inspection - Respiratory Exam Respiratory Exam: Clear to Ausculation Bilateral, NORMAL BREATHING PATTERN. absent: Rales, Rhonchi, Wheezes - Cardiovascular Exam Cardiovascular Exam: REGULAR RHYTHM, RRR, +S1, +S2 - GI/Abdominal Exam GI & Abdominal Exam: Soft, Normal Bowel Sounds. absent: Distended, Tenderness - Extremities Exam Additional comments: thin and cachetic. edema +1-2 of the bilateral upper extremities. Scrotal swelling. mild edema of the lower extremities. - Neurological Exam Additional comments: Intubated, ventilated, and poorly responsive. - Psychiatric Exam Additional comments: Intubated, ventilated, and poorly responsive. Assessment and Plan - Assessment and Plan (Free Text) Assessment: 85 yo male with cecal mass and bilateral hernia had exploratory laparotomy with right hemicolectomy. The patient is unable to give any significant information when speaking with him. He is not complaining of pain. The patient leukocytosis remains elevated at 35.4. There is a mild left shift to the leukocytosis. Supportive care. Silva cultures sent. Had Proteus in urine culture over a week ago but more recent urine culture is negative for growth. No growth in recent cultures so far. C. Diff studies negative. Currently on Meropenem and Flagyl for antibiotic coverage. Supportive care. Extremely poor prognosis with care bordering on futility at this point. No improvement in mental status over the past few days. Remains in MICU and required intubation and ventilation. On antibiotics of Vancomycin, Meropenem, and Flagyl currently. Awaiting repeat cultures - negative to date at 5+ days. No further surgical interventions. Possible aspiration pneumonia. Bleed at anastomotic site. Patient is hemodynamically stable. CT when patient stable enough to do so. He is currently off pressors and sedation. Repeat Abdominal X-ray shows resolvement of SBO portion of disease. Patient remains critically ill and has an extremely poor prognosis. He remains intubated and ventilated. There are attempts to wean off ventilator. No family available for decision making for the patient. Persistent high leukocytosis. Hernias... incarcerated? Thank you for allowing me to participate in the care of the patient, we will follow with you.
--- NOTE | 2016-06-05 20:07 | PN ---
DATE: 06/05/2016 ADDENDUM This patient was seen and evaluated earlier today. The patient still remains on vent. PHYSICAL EXAMINATION: VITAL SIGNS: Temperature is 98.7, pulse 75, blood pressure 164/91. HEENT: Atraumatic, anicteric. Intubated on vent. NECK: Supple. HEART: S1, S2 heard. LUNGS: Bilateral air entry present. ABDOMEN: Soft. Surgical incision and dressing noticed. There is right inguinal scrotal swelling. EXTREMITIES: No clubbing, no cyanosis. The patient has antiembolic stocking. LABORATORY DATA: WBC 35.4, hemoglobin 10.7, hematocrit 35, platelets 405. IMPRESSION AND PLAN: This is an 86-year-old patient status post right hemicolectomy. Postop course complicated by the sepsis, a small-bowel obstruction and GI bleeding. Presently, still remains on ve nt. Waiting for the family decision regarding . Hemoglobin and hematocrit remains stable. Co ntinue the antibiotics as per ID. Will continue to closely follow up his care and suggest further john copeland based on the clinical course. Ann Luna MD cc: [id number] TT: 06/05/2016 20:06:12 Confirmation # [id number] Dictation # [id number] cortez
[2016-06-06] MEDS: Albuterol-Ipratrop 3 mg / 0.5 (3 ml) UD IH SCH ×4 (01:30→19:35)
[2016-06-06] MEDS: metroNIDAZOLE IV 500 mg/100 ml 100 ML IVPB SCH ×3 (05:30→21:47)
[2016-06-06] MEDS: Meropenem 1 GM in Sodium Chloride 0.9% 100 ML IVPB SCH ×2 (05:31→13:46)
[2016-06-06 07:00] LABS: BASO # 0.02 K/mm3 (0.0-2.0); BASO % 0.1 % (0.0-3.0); EOS # 0.1 (0.0-0.7); EOS % 0.3 % (1.5-5.0); GRAN # 34.27 (1.4-6.5); GRAN % 92.5 % (50.0-68.0); HEMATOCRIT 36.8 % (42.0-52.0); LYMPH # 0.9 (1.2-3.4); LYMPH % 2.3 % (22.0-35.0); MEAN CELL VOLUME 92.7 fL (80.0-105.0); MEAN CORPUSCULAR HGB CONC 30.2 g/dl (31.0-37.0); MEAN PLATELET VOLUME 12.8 fl (7.0-11.0); MONO # 1.8 (0.1-0.6); MONO % 4.8 % (1.0-6.0); PLATELET COUNT 478 10^3/uL (120.0-450.0); RED CELL DISTRIBUTION WIDTH 19.4 % (11.5-14.5)
[2016-06-06 07:32] LABS: ALB/GLOB RATIO 0.6 (1.1-1.8); ALKALINE PHOSPHATASE 128 U/L (38-133); ALT/SGPT 47 U/L (7-56); AST/SGOT 60 U/L (15-59); BILIRUBIN,TOTAL 1.3 mg/dL (0.2-1.3); BLOOD UREA NITROGEN 25 mg/dL (7-21); CALCIUM 7.7 mg/dL (8.4-10.5); CARBON DIOXIDE 31 mmol/L (21-33); CHLORIDE 108 mmol/L (98-107); GFR AFRICAN-AMERICAN > 60; GLUCOSE,RANDOM 92 mg/dL (70-110); POTASSIUM 3.9 mmol/L (3.6-5.0); SODIUM 145 mmol/L (132-148); TOTAL PROTEIN 5.3 g/dL (5.8-8.3)
[2016-06-06 07:38] LABS: ADD MANUAL DIFF? NO
[2016-06-06] MEDS: Insulin Lispro (humaLOG) MEDIUM Coverage SC SCH ×3 (08:57→22:00)
[2016-06-06] MEDS: Vancomycin 1 GM in Dextrose 5% In Water 250 ML IVPB SCH ×2 (09:26→21:58)
[2016-06-06] MEDS: MethylPREDNISolone 40 mg Vial IVP SCH (09:46)
--- NOTE | 2016-06-06 10:46 | PN ---
DATE: 06/06/2016 The patient is seen in the CCU. His white count is elevated, but in general, he is doing very well. He is still intubated on Precedex. His vital signs though are fine. He is having bowel movements. Tube feedings about a liter a day. His abdomen is soft, nontender. His wound is unremarkable. He is to have a trach done. Multiple attempts to get in touch with the family have been unsuccessful, w e will continue to try. Alberto Peterson MD cc: [id number] TT: 06/06/2016 10:46:32 Confirmation # [id number] Dictation # [id number]
[2016-06-06] MEDS ORDERED: MethylPREDNISolone 40 mg Vial IVP SCH (10:54)
--- NOTE | 2016-06-06 11:44 | PN ---
DATE: 06/06/2016 NEUROLOGY PROGRESS NOTE SUBJECTIVE: The patient is lying on the bed, in no acute distress. PHYSICAL EXAMINATION: VITAL SIGNS: His blood pressure is 1____2/83. Heart rate 86 per minute, breathing at a rate of 16 p er minute. Temperature is 98.4 degrees Fahrenheit. HEENT: Head is normocephalic, atraumatic. NECK: Supple. There are no carotid bruits. LUNGS: Clear. CARDIOVASCULAR: S1 and S2 audible. No murmurs. ABDOMEN: Soft, nontender. Bowel sounds are present. NEUROLOGIC EXAMINATION: MENTAL STATUS: The patient intermittently tries to open eyes spontaneously. Does not follow any com mands. CRANIAL NERVES: Pupils are 3 mm bilaterally reactive to light. Positive doll's eye movement. Posit carri corneal reflex. Positive gag reflex. He does not withdraw any extremity to noxious painful stim alix. Plantar reflexes are absent. LABORATORY DATA: Labs reviewed show WBC of 37.0, hemoglobin 11.1, hematocrit 36.8, platelets of 478. His sodium is 145, potassium 3.9, chloride 108, carbon dioxide 31, BUN of 25, creatinine 0.6, and g lucose of 92. IMPRESSION: 1. Altered mental status secondary to toxic metabolic encephalopathy. 2. Sepsis. 3. Respiratory failure. RECOMMENDATIONS: 1. The patient has shown minimal improvement in neurologic status, with at times the patient is spon taneously opening the eyes. 2. The patient to be continued on IV antibiotics. 3. The patient to be continued on ventilator support. 4. The prognosis appears guarded. 5. Please continue supportive care and other treatment. Thank you for the opportunity to participate in the care of this patient. Sofía Zepeda MD cc: [phone] TT: 06/06/2016 11:43:48 Confirmation # [id number] Dictation # [id number] kate
--- NOTE | 2016-06-06 11:51 | PN ---
DATE: 06/06/2016 The patient seen and examined at bedside. He is poorly responsive even to painful stimuli. He was tried on pressure support 10/5/60%; however, his respiratory rate started to increase and rapid shallow breathing index also tomás to more than 105. The patient is not on any pressors. He is on Precedex 0.7 mcg/kg per hour. PHYSICAL EXAMINATION: VITAL SIGNS: On that, heart rate 83, oxygen saturation 96%. End-tidal CO2 on the monitor of 39, respiratory rate 35-40, blood pressure 138/64. HEAD AND NECK: Atraumatic. LUNGS: A few crackles bilaterally. HEART: Regular rate and rhythm. S1, S2. ABDOMEN: Soft, nontender, nondistended. MUSCULOSKELETAL: No C/C/E. NEUROLOGIC: The patient was not observed [id number] upper or lower extremity. LABORATORY DATA: WBC 37, hemoglobin 11.1, platelet count 478. Sodium 145, potassium 3.9, chloride 108, carbon dioxide 31, BUN 25, creatinine 0.6, glucose 87, AST 60, ALT 47. . MEDICATIONS: DuoNeb every 6, Precedex, Flagyl, regular insulin sliding scale medium protocol, meropenem, Protonix 40 mg IV q. 12, Solu-Medrol 40 mg IV daily , Tylenol p.r.n., vancomycin. ASSESSMENT AND PLAN: This is an 86-year-old gentleman with resolved hemorrhagic shock and synchronous upper gastrointestinal bleed complicated by aspiration pneumonia/pneumonitis with subsequent adult respiratory distress syndrome requiring intubation, protective lung ventilation strategy and neuromuscular blockade at one point. At present time, his ventilatory support requirements substantially decreased. However, he was not able to tolerate some pressure support for more than half an hour. His mental status related to critical illness (toxic metabolic encephalopathy) in the setting of developmental delay makes his ability to protect his airways at best questionable. Also he is in VDRF. The patient remained intubated for more than 10 days and we will proceed with early tracheotomy. I spoke with Dr. Peterson about that who is in agreement as well. 1. Neurologic: The patient is on minimal sedation with Precedex. His mental status remains very altered. I will continue to taper Precedex and see if the patient will be more responsive. Precedex, however, should not interfere with his respiratory status and ventilatory performance. Patient likely has toxic metabolic encephalopathy 2. Pulmonary: The patient made substantial strides toward improvement over the last 1 week; however, he failed weaning attempts today as well. He is off of neuromuscular blockade and off of sedation, except for Precedex. We will continue to make sure that his Vt does not exceed 6 mL per predicted body weight and plateau pressure less than 30. We will continue with conservative fluid management, head of bed elevated more than 35 degrees, VAP bundle. CXR shows b/l fluffy infiltrate and some air bronchograms can be seen even on CXR. Will continue to wean 3. Cardiovascular: The patient is hemodynamically stable when on PRVC; however , during the trial of pressure support, there were multiple PVCs and PACs. 4. Gastrointestinal: No signs of upper or lower gastrointestinal bleed. The patient is on gastrointestinal prophylaxis. Hemoglobin stable. CAT scan of the abdomen and pelvis did not reveal intraabdominal abscess. There were multiple pulmonary consolidations and ground-glass opacities in both upper lobes including lingular segment of the left upper lobe. There was mucosal thickening of multiple loops of the small bowel in right inguinal hernia sac; however, no bowel obstruction. 5. Infectious disease. Leukocytosis is concerning; however, he is on broad- spectrum antibiotics. Most likely source would be pneumonia or pneumonitis. Sysytemic steroids for early ARDS may have also contributed. The patient, however, is afebrile and remains clinically stable. His blood culture and urine culture remain negative. 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 We will start taper his steroids (today down to 20 mg daily) 6. Renal: The patient has good urine output and his renal function is stable. We will continue with euvolemia, euglycemia. We will continue to target normothermia and oxygen saturation more than 90%. We will continue with deep venous thrombosis and gastrointestinal prophylaxis. ccm time 40 min Javier Molina MD cc: [id number] TT: 06/06/2016 11:51:47 Confirmation # [id number] Dictation # [id number] jessica GOFF
[2016-06-06] MEDS: Meropenem 1g/NS 100mL IVPB 100 ML IVPB SCH ×2 (13:52→21:50)
--- NOTE | 2016-06-06 14:02 | PN ---
DATE: 06/06/2016 This 86-year-old male was examined at his bedside in ICU bed 1 with his nurse, Madelin Thacker. The patient remains unresponsive in the setting of aspiration pneumonia and toxic metabolic encephalopathy. He is receiving IV antibiotics under the direction of Dr. Fuentes Victoria from infectious disease and chest x-ray shows an extensive new opacity in the upper right lung suspicious for pneumonia and an increasing opacity in his left lung base. No significant pleural effusion was identified and no pneumothorax was apparent. The patient still has had no family members reached regarding code status or consent for tracheostomy or PEG tube and he remains critically ill in the setting of toxic metabolic encephalopathy, sepsis and respiratory failure. PHYSICAL EXAMINATION: VITAL SIGNS: Temperature 98.4, respirations 20, pulse 86, blood pressure 118/ 44 with a pulse ox of 96%. He is on 60% FiO2 and 6 of PEEP. HEAD: Normocephalic, atraumatic. EYES: No icterus. NECK: Supple. ET tube in place. HEART: S1, S2. LUNGS: With rhonchi bilaterally. ABDOMEN: Soft, nontender. EXTREMITIES: He is wearing anti-embolism stockings and SCD compression stockings. VASCULAR: Limbs warm to touch. PSYCHOLOGIC: Unresponsive. NEUROLOGIC: Unresponsive. LABORATORY DATA: White count 37,000, hemoglobin 11.1, hematocrit 36.8, platelets 478,000. Blood gas shows pH 7.46, pCO2 of 45, pO2 of 96 and bicarb of 33 on an FiO2 of 60 and 6 of PEEP. Sodium 145, K 3.9, chloride 108, bicarb 31, BUN 25, creatinine 0.6, random blood sugar is 87, bilirubin is 1.3, AST is 60, ALT is 47, alk phos 128. IMPRESSION: An 86-year-old male with respiratory failure, aspiration pneumonia , acute respiratory distress syndrome, sepsis, toxic metabolic encephalopathy, leukocytosis, anemia of acute illness, GI bleeding, stress gastritis, status post gastrointestinal bleeding presumed secondary to the right hemicolectomy anastomotic site, status post cecal carcinoma surgery, adenocarcinoma. PLAN: To continue Duo-Nebulizers, IV Flagyl, meropenem and vancomycin under the direction and duration of Dr. Victoria. He continues on insulin coverage, IV Protonix q. 12, Solu-Medrol 20 mg IV daily. He is requiring ventilatory support. He is being fed through his NG tube. He remains on aspiration and fall precautions. He is on skin precautions. He has anti-embolism stockings. He is receiving bedside physical therapy as well as skin care. He will be monitored with serial labs and x-rays. Administrative consent may be necessary for tracheostomy and PEG tube if a family member cannot be reached. He remains full code in the absence of a family member allowing DNR and his overall prognosis remains poor. Approximately one hour was spent in the care, coordination of care, review of care and discussion of care with all co-consultants today including Dr. Alberto Peterson from surgery. Codi Pringle MD cc: [id number] TT: 06/06/2016 14:01:06 Confirmation # [id number] Dictation # [id number] mn MTDD
--- NOTE | 2016-06-06 17:56 | CP.PCM.PN ---
Subjective - Date & Time of Evaluation Date of Evaluation: 06/06/16 Time of Evaluation: 16:45 - Subjective Subjective: Infectious Disease Follow Up: June 06, 2016 85 yo male with initial presentation for abdominal pain and abnormal CT scan sent from [facility] facility (I think [facility] [place] [place]). 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 Currently the patient appears comfortable. He is unable to give any relevant information due to a severe developmental delay. Patient is currently post-operative day #14 and has been displaying increased leukocytosis since the surgery. Patient himself is intubated and ventilated. He was brought to MICU and remain here since. He required intubation and ventilation. Signs of aspiration pneumonia. On meropenem for now. Persistent leukocytosis. Patient in critical condition. Right IJ placed by MICU team. Case discussed with Dr. Pringle and Dr. Molina. The patient is on Meropenem and Flagyl for antibiotic coverage. Leukocytosis remains elevated at 37.0 today. Patient remains in critical condition but seems to have no further deterioration. Patient did receive 6 U of PRBCs, 4 U of FFP, and 1 U of platelets during the first 24 hours in ICU. Surgery has asked for a C. diff study which is negative. Melena and blood clots from rectum have slowed down considerably. Patient has an extremely poor prognosis. There has been no improvement of the patient's mental status over the past few days. The patient has been essentially non-responsive. Still very high leukocytosis. Multiple potential reasons for increased leukocytosis including high dose steroids. On the whole, the patient is afebrile and improving respiratory sigala. Mentally no improvement at all. Currently off pressors and sedation. Poorly responsive. Very poor prognosis. Remains intubated and ventilated. Attempts to wean off ventilator. Mentally, no improvement. No family available. Objective - Vital Signs/Intake and Output Vital Signs (last 24 hours): Temp Pulse Resp BP Pulse Ox 98.4 F 62 27 H 88/40 L 97 06/06/16 04:00 06/06/16 15:00 06/06/16 07:15 06/06/16 15:00 06/06/16 15:00 Intake and Output: 06/06/16 06/06/16 06:59 18:59 Intake Total 650 Output Total 1100 Balance -450 - Medications Medications: Current Medications Albuterol/Ipratropium (Duoneb 3 Mg/0.5 Mg (3 Ml) Ud) 3 ml IH [id number] [facility] Last Admin: 06/06/16 13:10 Dose: 3 ml Metronidazole (Flagyl) 100 mls @ 100 mls/hr IVPB Q8 [facility] PRN Reason: Protocol Last Admin: 06/06/16 13:57 Dose: 100 mls/hr Vancomycin HCl 1 gm/ Dextrose 250 mls @ 166.667 mls/hr IVPB Q12 [facility] Last Admin: 06/06/16 09:26 Dose: 166.667 mls/hr Dexmedetomidine HCl (Precedex 4 Mcg/Ml (100 Ml)) 100 mls @ 3.645 mls/hr IV .Q24H PRN; Protocol; 0.2 MCG/KG/HR PRN Reason: Agitation Last Admin: 06/05/16 18:41 Dose: 12.756 mls/hr MEROPENEM-0.9% SODIUM CHLORIDE (Meropenem 1g/Ns 100ml Ivpb) 100 mls @ 100 mls/ hr IVPB Q8 [facility] PRN Reason: Protocol Last Admin: 06/06/16 13:52 Dose: 100 mls/hr Insulin Human Lispro (Humalog Med) 0 units SC ACHS [facility] PRN Reason: Protocol Last Admin: 06/06/16 13:44 Dose: Not Given Methylprednisolone (Solu-Medrol) 20 mg IVP DAILY [facility] Pantoprazole Sodium (Protonix Inj) 40 mg IVP Q12 [facility] Last Admin: 06/06/16 09:47 Dose: 40 mg - Labs Labs: 06/06/16 06:46 06/06/16 06:46 PT 16.7 Seconds (9.9-11.8) H 05/27/16 17:35 INR 1.55 (0.93-1.08) H 05/27/16 17:35 APTT 28.1 Seconds (23.7-30.8) 05/27/16 17:35 - Constitutional Appears: Non-toxic, No Acute Distress, Chronically Ill - Head Exam Head Exam: NORMOCEPHALIC Additional comments: intubated and ventilated - Eye Exam Eye Exam: EOMI, PERRL Pupil Exam: NORMAL ACCOMODATION, PERRL - ENT Exam ENT Exam: Mucous Membranes Moist, Normal External Ear Exam, TM's Normal Bilaterally - Neck Exam Neck Exam: Full ROM, Normal Inspection - Respiratory Exam Respiratory Exam: Clear to Ausculation Bilateral, NORMAL BREATHING PATTERN. absent: Rales, Rhonchi, Wheezes - Cardiovascular Exam Cardiovascular Exam: REGULAR RHYTHM, RRR, +S1, +S2 - GI/Abdominal Exam GI & Abdominal Exam: Soft, Normal Bowel Sounds. absent: Distended, Tenderness - Extremities Exam Additional comments: thin and cachetic. edema +1-2 of the bilateral upper extremities. Scrotal swelling. mild edema of the lower extremities. - Neurological Exam Additional comments: Intubated, ventilated, and poorly responsive. - Psychiatric Exam Additional comments: Intubated, ventilated, and poorly responsive. Assessment and Plan - Assessment and Plan (Free Text) Assessment: 85 yo male with cecal mass and bilateral hernia had exploratory laparotomy with right hemicolectomy. The patient is unable to give any significant information when speaking with him. He is not complaining of pain. The patient leukocytosis remains elevated at 37.0. There is a mild left shift to the leukocytosis. Supportive care. Silva cultures sent. Had Proteus in urine culture over a week ago but more recent urine culture is negative for growth. No growth in recent cultures so far. C. Diff studies negative. Currently on Meropenem and Flagyl for antibiotic coverage. Supportive care. Extremely poor prognosis with care bordering on futility at this point. No improvement in mental status over the past few days. Remains in MICU and required intubation and ventilation. On antibiotics of Vancomycin, Meropenem, and Flagyl currently. Awaiting repeat cultures - negative to date at 5+ days. No further surgical interventions. Possible aspiration pneumonia. Bleed at anastomotic site. Patient is hemodynamically stable. CT when patient stable enough to do so. He is currently off pressors and sedation. Repeat Abdominal X-ray shows resolvement of SBO portion of disease. Patient remains critically ill and has an extremely poor prognosis. He remains intubated and ventilated. There are attempts to wean off ventilator. No family available for decision making for the patient. Persistent high leukocytosis. Hernias... incarcerated? Thank you for allowing me to participate in the care of the patient, we will follow with you.
[2016-06-07] MEDS: Albuterol-Ipratrop 3 mg / 0.5 (3 ml) UD IH SCH ×4 (01:30→19:20)
[2016-06-07] MEDS: metroNIDAZOLE IV 500 mg/100 ml 100 ML IVPB SCH ×3 (05:41→21:23)
[2016-06-07] MEDS: Meropenem 1g/NS 100mL IVPB 100 ML IVPB SCH ×3 (05:43→21:23)
[2016-06-07 05:44] LABS: ARTERIAL BLOOD GAS HCO3 32.5 mmol/L (21-28); ARTERIAL BLOOD GAS O2 CAPACITY 16.6 mL/dl (16-24); ARTERIAL BLOOD GAS O2 CONTENT 16.4 ML/dl (15-23); ARTERIAL BLOOD GAS PH 7.38 (7.35-7.45); HHB 1.1 % (0-5); METHEMOGLOBIN 0.9 % (0.0-3.0)
[2016-06-07 06:01] LABS: MEAN CELL VOLUME 91.6 fL (80.0-105.0); MEAN CORPUSCULAR HEMOGLOBIN 28.3 pg (25.0-35.0); MEAN CORPUSCULAR HGB CONC 30.9 g/dl (31.0-37.0); MEAN PLATELET VOLUME 12.2 fl (7.0-11.0); PLATELET COUNT 472 10^3/uL (120.0-450.0); RED CELL DISTRIBUTION WIDTH 19.3 % (11.5-14.5)
[2016-06-07 06:16] LABS: ADD MANUAL DIFF? YES; WHITE BLOOD COUNT 33.1 10^3/ul (4.5-11.0)
[2016-06-07 06:21] LABS: ALB/GLOB RATIO 0.6 (1.1-1.8); ALKALINE PHOSPHATASE 152 U/L (38-133); ALT/SGPT 59 U/L (7-56); AST/SGOT 98 U/L (15-59); BILIRUBIN,TOTAL 0.9 mg/dL (0.2-1.3); BLOOD UREA NITROGEN 26 mg/dL (7-21); CALCIUM 7.6 mg/dL (8.4-10.5); CARBON DIOXIDE 30 mmol/L (21-33); CHLORIDE 108 mmol/L (98-107); GFR AFRICAN-AMERICAN > 60; GLUCOSE,RANDOM 120 mg/dL (70-110); POTASSIUM 3.8 mmol/L (3.6-5.0); SODIUM 143 mmol/L (132-148); TOTAL PROTEIN 5.2 g/dL (5.8-8.3)
[2016-06-07 07:03] LABS: NEUTROPHIL 92 % (50.0-70.0)
[2016-06-07 07:06] LABS: PLATELET ESTIMATE HIGH (NORMAL)
--- NOTE | 2016-06-07 08:18 | RAD ---
HISTORY: intubated COMPARISON: No prior. FINDINGS: LUNGS: In situ ETT tip of which lies approximately 3.1 cm above flako. NGT is present, the tip of which has not been included on this study the distal aspect does lie below EG junction. Right IJ central venous line with tip in the SVC unchanged. Diffuse bilateral infiltrates again noted also appear stable. PLEURA: No significant pleural effusion identified, no pneumothorax apparent. CARDIOVASCULAR: Normal. OSSEOUS STRUCTURES: No significant abnormalities. VISUALIZED UPPER ABDOMEN: Normal. OTHER FINDINGS: None. IMPRESSION: Support lines and tubes as above. Persistent bilateral infiltrates unchanged
[2016-06-07] MEDS: Vancomycin 1 GM in Dextrose 5% In Water 250 ML IVPB SCH ×2 (10:17→22:03)
[2016-06-07] MEDS: Insulin Lispro (humaLOG) MEDIUM Coverage SC SCH ×3 (10:22→22:11)
--- NOTE | 2016-06-07 10:34 | PN ---
DATE: 06/07/2016 The patient is lying on the bed, in no acute distress, on a ventilator. PHYSICAL EXAMINATION: VITAL SIGNS: His blood pressure is 116/53, heart rate is 91 per minute, breathing at a rate of 24 pe r minute and temperature is 99 degrees Fahrenheit. HEENT: Head is normocephalic, atraumatic. NECK: Supple. There are no carotid bruits. LUNGS: Clear. CARDIOVASCULAR: S1, S2 audible. No murmurs. ABDOMEN: Soft, nontender, bowel sounds are present. NEUROLOGIC EXAMINATION: MENTAL STATUS: The patient spontaneously opens his eyes. He does not follow any commands. He grima tyshawn to pain. CRANIAL NERVES: Pupils are 3 mm bilaterally, reactive to light. Visual carranza appear to be full to threat. There is positive doll's eye movement. There is no facial asymmetry. SENSORY: He does not withdraw any extremities to noxious painful stimuli; however, grimaces to pain. MOTOR: Plantars no response. LABORATORIES: Reviewed, shows WBC 33.1, hemoglobin of 10.5, hematocrit 34.0 and platelets of 472. S odium is 143, potassium 3.8, chloride 108, carbon dioxide content of 30, BUN of 26, creatinine is 0.5 and glucose of 120. IMPRESSION: 1. Toxic metabolic encephalopathy. 2. Sepsis. 3. Respiratory failure. RECOMMENDATIONS: 1. The patient seems to be more alert today compared to yesterday. 2. The patient to be continued on IV antibiotics. 3. The patient to have ventilatory support. 4. The patient to have bedside physical therapy. 5. Please continue supportive care and other treatment. Thank you for the opportunity to participate in the care of this patient. Sofía Zepeda MD cc: [id number] TT: 06/07/2016 10:34:07 Confirmation # [id number] Dictation # [id number] en
[2016-06-07] MEDS ORDERED: MethylPREDNISolone 40 mg Vial IVP SCH (11:40)
--- NOTE | 2016-06-07 12:46 | PN ---
DATE: 05/30/2016 SUBJECTIVE: Seen and examined at the bedside earlier today. The patient remains intubated and lionel ating oropharyngeal feedings. No residuals reported. The patient is more responsive to voice and st imuli. The patient is reported to have had green stool. No reports of any overt GI bleed. VITAL SIGNS: Temperature is 99, blood pressure 109/61, pulse is 96-98 on O2 saturation. LABORATORY DATA: WBC is 33.1. H and H is 10.5 and 34.0. Platelets are 472. Sodium 143, K is 3.8, BUN 26, creatinine 0.5, total bilirubin 0.9, AST 98, ALT 59, alkaline phosphatase is 152. LFTs are n oted to be elevated. He had a chest x-ray which was compared to 06/05 and this shows persistent bilat eral infiltrates that are unchanged. No pneumothorax. PHYSICAL EXAMINATION: HEENT: Sclera is anicteric. NECK: Supple. CARDIAC: S1, S2. LUNGS: Sounds with decreased breath sounds, but good air entry, no rales or wheeze. ABDOMEN: With bowel sounds, soft healing incision. Inguinal scrotal swelling. EXTREMITIES: Positive upper, lower extremity edema. He has some edema. NEUROLOGIC: The patient is intubated, but he is more responsive, opening eyes to voice and touch but not verbal. ASSESSMENT: This patient is an 86-year-old male status post right hemicolectomy with a complicated p ostoperative course, sepsis, small-bowel obstruction and gastrointestinal bleed. The patient with me tabolic encephalopathy, respiratory failure. He remains on the ventilator. I spoke to nursing staff who report that patient will likely be going for a percutaneous endoscopic gastrostomy and trach kamilah orrow. Still not able to get in touch with patient's family members. The patient's tube feedings wi ll be changed to ____. It is going at 30 mL an hour now. The patient remains on Precedex. He is on intravenous antibiotics of meropenem, Flagyl, and vancomycin. Continue gastrointestinal prophylaxis . He is on Protonix q.12. His LFTs are noted to be elevated. It could be multifactorial between me dications. Consider congestion. We will continue to follow as per infectious disease, surgery and o ncology. The patient seen and case discussed with Dr. Luna. Henrietta KIRBY cc: [id number] TT: 06/07/2016 12:45:53 Confirmation # [id number] Dictation # [id number] sn
--- NOTE | 2016-06-07 13:20 | CP.PCM.PN ---
Subjective - Date & Time of Evaluation Date of Evaluation: 06/07/16 Time of Evaluation: 13:18 - Subjective Subjective: Surgery: Dr. Peterson Pt seen and examined. Per nursing no acute events overnight. Pt is more alert today. Arousable, does not follow commands. Objective - Vital Signs/Intake and Output Vital Signs (last 24 hours): Temp Pulse Resp BP Pulse Ox 99 F 96 H 24 109/61 98 06/07/16 04:00 06/07/16 09:24 06/07/16 06:00 06/07/16 09:00 06/07/16 09:24 Intake and Output: 06/07/16 06/07/16 06:59 18:59 Intake Total 1453 Output Total 600 Balance 853 - Medications Medications: Current Medications Albuterol/Ipratropium (Duoneb 3 Mg/0.5 Mg (3 Ml) Ud) 3 ml IH [id number] [facility] Last Admin: 06/07/16 13:16 Dose: 3 ml Metronidazole (Flagyl) 100 mls @ 100 mls/hr IVPB Q8 [facility] PRN Reason: Protocol Last Admin: 06/07/16 05:41 Dose: 100 mls/hr Vancomycin HCl 1 gm/ Dextrose 250 mls @ 166.667 mls/hr IVPB Q12 [facility] Last Admin: 06/07/16 10:17 Dose: 166.667 mls/hr Dexmedetomidine HCl (Precedex 4 Mcg/Ml (100 Ml)) 100 mls @ 3.645 mls/hr IV .Q24H PRN; Protocol; 0.2 MCG/KG/HR PRN Reason: Agitation Last Titration: 06/07/16 03:00 Dose: 0.6 mcg/kg/hr MEROPENEM-0.9% SODIUM CHLORIDE (Meropenem 1g/Ns 100ml Ivpb) 100 mls @ 100 mls/ hr IVPB Q8 [facility] PRN Reason: Protocol Last Admin: 06/07/16 05:43 Dose: 100 mls/hr Insulin Human Lispro (Humalog Med) 0 units SC ACHS [facility] PRN Reason: Protocol Last Admin: 06/07/16 10:22 Dose: Not Given Methylprednisolone (Solu-Medrol) 10 mg IVP DAILY [facility] Pantoprazole Sodium (Protonix Inj) 40 mg IVP Q12 [facility] Last Admin: 06/07/16 10:15 Dose: 40 mg - Labs Labs: 06/07/16 05:50 06/07/16 05:50 PT 16.7 Seconds (9.9-11.8) H 05/27/16 17:35 INR 1.55 (0.93-1.08) H 05/27/16 17:35 APTT 28.1 Seconds (23.7-30.8) 05/27/16 17:35 - Constitutional Appears: Non-toxic, No Acute Distress, Chronically Ill - Head Exam Head Exam: ATRAUMATIC, NORMOCEPHALIC - Eye Exam Eye Exam: EOMI - ENT Exam ENT Exam: Mucous Membranes Dry - Neck Exam Neck Exam: Full ROM - Respiratory Exam Respiratory Exam: NORMAL BREATHING PATTERN. absent: Accessory Muscle Use, Respiratory Distress - GI/Abdominal Exam GI & Abdominal Exam: Soft. absent: Distended, Firm, Guarding, Rigid, Tenderness Additional comments: midline incision C/D/I large reducible B/L inguinal hernias - Extremities Exam Extremities Exam: absent: Calf Tenderness, Pedal Edema - Neurological Exam Neurological Exam: Awake. absent: Alert, Oriented x3 Assessment and Plan - Assessment and Plan (Free Text) Assessment: 85M w. cecal mass, s/p ex-lap w. R hemicolectomy, POD#16 -Path: adenocarcinoma -Post-op bleed likely at anastomosis site, resolved -Pt will need trach and gastrostomy tube, several attempts have been made to reach nephrosmery, Servando Potter, most recently this morning, at [phone] (cell) inbox full, and at [phone] (work) again inbox is full, message was left w. hotel receptionist asking Mr. Potter to return phone call -If unable to reach dulce will plan for OR tomorrow w. administrative consent -Hold tube feeds this evening -d/w attending Mily PGY2
--- NOTE | 2016-06-07 13:49 | PN ---
DATE: 06/07/2016 This 86-year-old male was examined in ICU bed 1. His case was reviewed with his nurse in detail. The patient opens his eyes, but has no purposeful response and has no movement to painful stimuli. There has been no response from family members who have been contacted by multiple consultants and social service and a certified letter that was sent to his next of kin apparently was undeliverable. This patient remains intubated, receiving NG tube feedings and is still ventilatory dependent because of respiratory failure in the setting of aspiration pneumonia and ARDS. awake overnight monitor shows a normal sinus rhythm. PHYSICAL EXAMINATION: VITAL SIGNS: Temperature is 99, respirations are 28, pulse is 96, blood pressure 109/61 with a pulse ox of 98% on 60% FiO2 with 6 of PEEP. I's and O's : 1453 in and 600 mL out to date. HEAD: Normocephalic, atraumatic. EYES: No icterus. MOUTH: With ET tube and NG tube in place. NECK: Supple. HEART: S1, S2. LUNGS: With rhonchi and occasional wheezing. ABDOMEN: Soft. No palpable organomegaly. EXTREMITIES: He is wearing anti-embolism stockings and sequential compression device stockings. No edema. VASCULAR: Legs warm to touch. PSYCHOLOGICAL: Unresponsive, eyes are open. NEUROLOGIC: No purposeful movement, no movement of arms or legs to noxious stimuli. White count 33,100, hemoglobin 10.5, hematocrit 34.0, platelets 472,000. Blood gas: pH 7.38, pCO2 55, pO2 108, bicarbonate 32 on 60% FiO2 and 6 of PEEP. Sodium 143, K 3.8, chloride 108, bicarb 30, BUN 26, creatinine 0.5, random blood sugar is 120, bilirubin 0.9, AST 98, ALT 59, alkaline phosphatase 152. NG tube emesis was positive. Chest x-ray shows persistent bilateral infiltrates unchanged with all port lines and tubes intact. IMPRESSION: An 86-year-old male, status post surgery for cecal carcinoma, adenocarcinoma, with complications of postoperative gastrointestinal bleeding, presumed secondary at the anastomotic site as well as stress gastritis, complicated by aspiration pneumonia, respiratory failure, acute respiratory distress syndrome, toxic metabolic encephalopathy, sepsis, persistent ventilatory dependency because of respiratory failure and multiple imbalances including leukocytosis, anemia, hypoxemia, shock liver, sepsis, septic and hemorrhagic shock and chronic obstructive pulmonary disease. PLAN: The patient continues on DuoNeb nebulizer therapy, pulmonary toiletry, insulin coverage before mealtime and at bedtime and NG tube feeds with aspiration and fall precautions and skin care being monitored as well as anti- embolism protection with SCD compression stockings. He continues on IV antibiotics under the direction of Dr. Victoria, which at the present time include vancomycin, meropenem and Flagyl. He continues on IV Protonix, tapering doses of Solu-Medrol and patient will need to be considered for administrative consent for both tracheostomy and surgical PEG tube placement. The patient's overall prognosis is dismal. He remains a full code in the absence of family members who can render his case DNR. He will continue to be treated compassionately and supportively, and overall prognosis is poor. Approximately one hour was spent in the care, coordination of care, review of care and discussion of care regarding this critically ill patient with nursing, social service and co-consultants involved. No family members can be reached to date. Codi Pringle MD cc: [id number] TT: 06/07/2016 13:49:13 Confirmation # [id number] Dictation # [id number] en MTDD
--- NOTE | 2016-06-07 14:24 | CP.CCUPN ---
<Roger Britton - Last Filed: 06/07/16 14:24> CCU Subjective - Physician Review Subjective (Free Text): Pt s&e w ICU attending. Pt is on sedation, intubated. Precedex stopped. fio2 60 , 6, 20, 350 changed to CPAP 60% 5 today . On tube feed. watery bilious BM. No blood. Pt is more arousable. Spontaneaously opening eyes. Doesn't response to pain stimuli, doesn't follow commands. 06/07/16 14:24 CCU Objective - Vital Signs / Intake & Output Intake and Output (Last 8hrs): Intake & Output 06/06/16 06/07/16 06/07/16 22:59 06:59 14:59 Intake Total 1870 1453 Output Total 900 600 Balance 970 853 Weight 155 lb 14.4 oz Intake: IV 650 693 Right Internal Jugular 650 693 Tube Feeding 640 360 Other 580 400 Output: Urine 800 600 2-way Urethral 800 600 Stool 100 Emesis 0 Other: Voiding Method Indwelling Catheter Indwelling Catheter # Bowel Movements 2 - Physical Exam Head: Positive for: Atraumatic, Normocephalic. Negative for: Ecchymosis Pupils: Positive for: PERRL Extroacular Muscles: Positive for: EOMI Conjunctiva: Negative for: Injected, Icteric Mouth: Positive for: Moist Mucous Membranes Pharnyx: Positive for: Normal. Negative for: ERYTHEMA Nose (Internal): Positive for: Normal Inspection, No Active Bleeding Neck: Positive for: Normal Range of Motion Respiratory/Chest: Positive for: Respiratory Distress, Other (Intubated. ). Negative for: Tachypneic Cardiovascular: Positive for: Regular Rate and Rhythm, Normal S1, S2 Abdomen: Positive for: Normal Bowel Sounds, Hernias, Other (Incision C/D/I). Negative for: Tenderness, Distention, Peritoneal Signs, Rebound, Guarding Rectal: Positive for: Other (Rectal tube : 350 bilious fluids/24hrs) Genitourinary Male: Positive for: Testicle Tenderness, Hernias, Testicle Swelling, Other (Large [id number] R inguinal hernia: irreducible. 10x5cm L inguinal hernia : irreducible.Gleason 1.5L /24hrs). Negative for: Normal External Genitalia Upper Extremity: Positive for: Edema, Swelling. Negative for: Erythema Lower Extremity: Positive for: Edema, Swelling. Negative for: Cyanosis Neurological: Positive for: Other (no withdrawl from pain ) Skin: Positive for: Warm, Dry Psychiatric: Negative for: Alert, Oriented x 3, Normal Insight - Medications Active Medications: Active Medications Generic Name Dose Route Start Last Admin Trade Name Freq PRN Reason Stop Dose Admin Albuterol/Ipratropium 3 ml 05/30/16 14:00 06/07/16 13:16 Duoneb 3 Mg/0.5 Mg (3 Ml) Ud IH 3 ml [id number] SHARIF Administration Metronidazole 100 mls @ 100 mls/hr 05/24/16 08:15 06/07/16 05:41 Flagyl IVPB 100 mls/hr Q8 SHARIF Administration Protocol Vancomycin HCl 1 gm/ Dextrose 250 mls @ 166.667 mls/hr 06/02/16 22:00 06/07/16 10:17 IVPB 166.667 mls/hr Q12 SHARIF Administration Dexmedetomidine HCl 100 mls @ 3.645 mls/hr 06/02/16 14:15 06/07/16 03:00 Precedex 4 Mcg/Ml (100 Ml) IV 0.6 mcg/kg/hr .Q24H PRN Titration Agitation Protocol 0.2 MCG/KG/HR MEROPENEM-0.9% SODIUM CHLORIDE 100 mls @ 100 mls/hr 06/06/16 09:08 06/07/16 05: 43 Meropenem 1g/Ns 100ml Ivpb IVPB 100 mls/hr Q8 SHARIF Administration Protocol Insulin Human Lispro 0 units 05/31/16 22:00 06/07/16 10:22 Humalog Med SC Not Given ACHS SHARIF Protocol Methylprednisolone 10 mg 06/07/16 11:40 Solu-Medrol IVP DAILY SHARIF Pantoprazole Sodium 40 mg 06/01/16 10:00 06/07/16 10:15 Protonix Inj IVP 40 mg Q12 SHARIF Administration - Patient Studies Lab Studies: Lab Studies 06/07/16 06/07/16 06/06/16 Range/Units 05:50 05:00 21:52 WBC 33.1 H* (4.5-11.0) 10^3/ul RBC 3.71 (3.5-6.1) 10^6/uL Hgb 10.5 L (14.0-18.0) gm/dL Hct 34.0 L (42.0-52.0) % MCV 91.6 (80.0-105.0) fL MCH 28.3 (25.0-35.0) pg MCHC 30.9 L (31.0-37.0) g/dl RDW 19.3 H (11.5-14.5) % Plt Count 472 H (120.0-450.0) 10^3/uL MPV 12.2 H (7.0-11.0) fl Neutrophils % (Manual) 92 H (50.0-70.0) % Lymphocytes % (Manual) 4 L (22.0-35.0) % Monocytes % (Manual) 4 (1.0-6.0) % Platelet Evaluation High (NORMAL) pCO2 55 H (35-45) mm/Hg pO2 108.0 H (80-100) mm/Hg HCO3 32.5 H (21-28) mmol/L ABG pH 7.38 (7.35-7.45) ABG Total CO2 34.2 H (22-28) mmol.L ABG O2 Saturation 98.9 H (95-98) % ABG O2 Content 16.4 (15-23) ML/dl ABG Base Excess 6.0 H (-2.0-3.0) mmol/L ABG Hemoglobin 12.0 (11.7-17.4) g/dL ABG Carboxyhemoglobin 2.0 H (0.5-1.5) % POC ABG HHb (Measured) 1.1 (0-5) % ABG Methemoglobin 0.9 (0.0-3.0) % ABG O2 Capacity 16.6 (16-24) mL/dl Hgb O2 Saturation 96.0 (95.0-98.0) % FiO2 60.0 % Sodium 143 (132-148) mmol/L Potassium 3.8 (3.6-5.0) mmol/L Chloride 108 H (98-107) mmol/L Carbon Dioxide 30 (21-33) mmol/L Anion Gap 9 L (10-20) BUN 26 H (7-21) mg/dL Creatinine 0.5 (0.5-1.4) mg/dL Est GFR ( Amer) > 60 Est GFR (Non-Af Amer) > 60 POC Glucose (mg/dL) 149 H (65-110) mg/dL Random Glucose 120 H (70-110) mg/dL Calcium 7.6 L (8.4-10.5) mg/dL Total Bilirubin 0.9 (0.2-1.3) mg/dL AST 98 H (15-59) U/L ALT 59 H (7-56) U/L Alkaline Phosphatase 152 H (38-133) U/L Total Protein 5.2 L (5.8-8.3) g/dL Albumin 2.0 L (3.0-4.8) g/dL Globulin 3.1 gm/dL Albumin/Globulin Ratio 0.6 L (1.1-1.8) Procalcitonin 0.17 L (0.19-0.49) NG/ML 06/06/16 Range/Units 16:19 WBC (4.5-11.0) 10^3/ul RBC (3.5-6.1) 10^6/uL Hgb (14.0-18.0) gm/dL Hct (42.0-52.0) % MCV (80.0-105.0) fL MCH (25.0-35.0) pg MCHC (31.0-37.0) g/dl RDW (11.5-14.5) % Plt Count (120.0-450.0) 10^3/uL MPV (7.0-11.0) fl Neutrophils % (Manual) (50.0-70.0) % Lymphocytes % (Manual) (22.0-35.0) % Monocytes % (Manual) (1.0-6.0) % Platelet Evaluation (NORMAL) pCO2 (35-45) mm/Hg pO2 (80-100) mm/Hg HCO3 (21-28) mmol/L ABG pH (7.35-7.45) ABG Total CO2 (22-28) mmol.L ABG O2 Saturation (95-98) % ABG O2 Content (15-23) ML/dl ABG Base Excess (-2.0-3.0) mmol/L ABG Hemoglobin (11.7-17.4) g/dL ABG Carboxyhemoglobin (0.5-1.5) % POC ABG HHb (Measured) (0-5) % ABG Methemoglobin (0.0-3.0) % ABG O2 Capacity (16-24) mL/dl Hgb O2 Saturation (95.0-98.0) % FiO2 % Sodium (132-148) mmol/L Potassium (3.6-5.0) mmol/L Chloride (98-107) mmol/L Carbon Dioxide (21-33) mmol/L Anion Gap (10-20) BUN (7-21) mg/dL Creatinine (0.5-1.4) mg/dL Est GFR ( Amer) Est GFR (Non-Af Amer) POC Glucose (mg/dL) 149 H (65-110) mg/dL Random Glucose (70-110) mg/dL Calcium (8.4-10.5) mg/dL Total Bilirubin (0.2-1.3) mg/dL AST (15-59) U/L ALT (7-56) U/L Alkaline Phosphatase (38-133) U/L Total Protein (5.8-8.3) g/dL Albumin (3.0-4.8) g/dL Globulin gm/dL Albumin/Globulin Ratio (1.1-1.8) Procalcitonin (0.19-0.49) NG/ML Laboratory Results - last 24 hr 06/06/16 06/06/16 06/07/16 16:19 21:52 05:00 WBC RBC Hgb Hct MCV MCH MCHC RDW Plt Count MPV Neutrophils % (Manual) Lymphocytes % (Manual) Monocytes % (Manual) Platelet Evaluation pCO2 55 H pO2 108.0 H HCO3 32.5 H ABG pH 7.38 ABG Total CO2 34.2 H ABG O2 Saturation 98.9 H ABG O2 Content 16.4 ABG Base Excess 6.0 H ABG Hemoglobin 12.0 ABG Carboxyhemoglobin 2.0 H POC ABG HHb (Measured) 1.1 ABG Methemoglobin 0.9 ABG O2 Capacity 16.6 Hgb O2 Saturation 96.0 FiO2 60.0 Sodium Potassium Chloride Carbon Dioxide Anion Gap BUN Creatinine Est GFR ( Amer) Est GFR (Non-Af Amer) POC Glucose (mg/dL) 149 H 149 H Random Glucose Calcium Total Bilirubin AST ALT Alkaline Phosphatase Total Protein Albumin Globulin Albumin/Globulin Ratio Procalcitonin 06/07/16 05:50 WBC 33.1 H* RBC 3.71 Hgb 10.5 L Hct 34.0 L MCV 91.6 MCH 28.3 MCHC 30.9 L RDW 19.3 H Plt Count 472 H MPV 12.2 H Neutrophils % (Manual) 92 H Lymphocytes % (Manual) 4 L Monocytes % (Manual) 4 Platelet Evaluation High pCO2 pO2 HCO3 ABG pH ABG Total CO2 ABG O2 Saturation ABG O2 Content ABG Base Excess ABG Hemoglobin ABG Carboxyhemoglobin POC ABG HHb (Measured) ABG Methemoglobin ABG O2 Capacity Hgb O2 Saturation FiO2 Sodium 143 Potassium 3.8 Chloride 108 H Carbon Dioxide 30 Anion Gap 9 L BUN 26 H Creatinine 0.5 Est GFR ( Amer) > 60 Est GFR (Non-Af Amer) > 60 POC Glucose (mg/dL) Random Glucose 120 H Calcium 7.6 L Total Bilirubin 0.9 AST 98 H ALT 59 H Alkaline Phosphatase 152 H Total Protein 5.2 L Albumin 2.0 L Globulin 3.1 Albumin/Globulin Ratio 0.6 L Procalcitonin 0.17 L Fingerstick Blood Sugar Results: 130 Review of Systems - Review of Systems Systems not reviewed;Unavailable: Intubated Critical Care Progress Note - Ventilator Checklist Head of Bed 30 Degrees: Yes Daily Sedation Vacation: No PUD Prophalyxis: Yes DVT Prophylaxis: Yes - Nutrition Nutrition: Nutrition Category Date Time Status NPO past midnight [NPO Diet] [DIET] Diets 06/07/16 Lunch Ordered Assessment/Plan - Assessment and Plan (Free Text) Assessment: The patient is a 66 year old man with a history of developmental delay, iron deficiency anemia, and degenerative arthritis who was admitted to [facility] on with bilateral, non-reducible inguinal hernias and a CT-scan showing a large cecal mass, concerning for malignancy. As a result, he underwent an exploratory laparotomy and right hemicolectomy (with pathology of cecal mass still pending) . Because of the hemicolectomy, and the large size of the patients bilateral inguinal hernias could not be repaired during the procedure. Post-operatively, the patient developed marked leukocytosis which is being treated with IV Merrem , vanco and Flagyl by ID consult. The CT scan shows an incarcerated right hernia sac with secondary small bowel obstruction, which general surgery manually reduced but reccuring. The bleeding scan shows active bleeding most likely from the sigmoid colon. Bleeding resolved. Pt intubated. Hypoxic respiratory failure ventilator dependent 2/2 aspiration pneumonia and ARDS Toxic metabolic encephalopathy Hemorrhagic shock 2/2 GI bleed: resolved. off pressors Neuro: Minimal response Mental Retardation Maintain normothermia EEG: Severe bihemispheric cerebral dysfunction CT: Old ischemia -Morphine, Ativan PRN -off sedation: Precedex Neuro following CV: Hemodynamically stable: Off pressors Maintain MAP >65 Pulm: Able to withstand PS sbt trial x 90 minutes. CXR : b/l infiltration Maintain Sp02>90 Plateau pressure <30 PaO2 >55% Vent setting at 60% fio2 5 ABX per ID Duoneb Wean vent Planned for tracheostomy/gastrostomy tomorrow by surgery GI: Colon CA: S/P R nimo for SBO and cecal mass: Path-Invasive adenoCA of colon 4x5cm T3N0 Bloody BM: resolved, billious diarrhea now. Tube feed w OGT: Fold tube feed after midnight Protonix IV 40mg Hold PO meds Hold hepatin sub Q, may resume s/p surgery tomorrow GI on board Heme: 6 PRBC given WBC 33 today hgb: 10.5 Transfuse if Hgb <8 Heme/Onc consult for Colon CA persistent leukocytosis Renal/: Urine output 1.5L /24hrs. Cr 0.5 Hernia recurrent bilaterally Continue to monitor electrolytes will replace/replete as needed Maintain euvolemia ID: Urine cx 05/16 : Proteus sensitive for cefetpime and Cipro, Sputum cx: Yeast Leukocystosis 33 today. Vanc/Merrem ID on board Endo: SSI , Accucheck q2 Maintain euglycemia GI ppx: PTX DVT ppx: SCDs Disposition: Guarded. Contact family for possible DNR/DNI Case seen, reviewed and discussed with attending <Javier Molina - Last Filed: 06/07/16 15:48> CCU Objective - Vital Signs / Intake & Output Intake and Output (Last 8hrs): Intake & Output 06/07/16 06/07/16 06/07/16 06:59 14:59 22:59 Intake Total 1453 Output Total 600 Balance 853 Weight 155 lb 14.4 oz Intake: IV 693 Right Internal Jugular 693 Tube Feeding 360 Other 400 Output: Urine 600 2-way Urethral 600 Other: Voiding Method Indwelling Catheter # Bowel Movements 2 - Medications Active Medications: Active Medications Generic Name Dose Route Start Last Admin Trade Name Freq PRN Reason Stop Dose Admin Albuterol/Ipratropium 3 ml 05/30/16 14:00 06/07/16 13:16 Duoneb 3 Mg/0.5 Mg (3 Ml) Ud IH 3 ml [id number] SHARIF Administration Metronidazole 100 mls @ 100 mls/hr 05/24/16 08:15 06/07/16 15:00 Flagyl IVPB 100 mls/hr Q8 SHARIF Administration Protocol Vancomycin HCl 1 gm/ Dextrose 250 mls @ 166.667 mls/hr 06/02/16 22:00 06/07/16 10:17 IVPB 166.667 mls/hr Q12 SHARIF Administration Dexmedetomidine HCl 100 mls @ 3.645 mls/hr 06/02/16 14:15 06/07/16 03:00 Precedex 4 Mcg/Ml (100 Ml) IV 0.6 mcg/kg/hr .Q24H PRN Titration Agitation Protocol 0.2 MCG/KG/HR MEROPENEM-0.9% SODIUM CHLORIDE 100 mls @ 100 mls/hr 06/06/16 09:08 06/07/16 14: 30 Meropenem 1g/Ns 100ml Ivpb IVPB 100 mls/hr Q8 SHARIF Administration Protocol Insulin Human Lispro 0 units 05/31/16 22:00 06/07/16 12:37 Humalog Med SC Not Given ACHS SHARIF Protocol Methylprednisolone 10 mg 06/07/16 11:40 Solu-Medrol IVP DAILY SHARIF Pantoprazole Sodium 40 mg 06/01/16 10:00 06/07/16 10:15 Protonix Inj IVP 40 mg Q12 SHARIF Administration - Patient Studies Lab Studies: Lab Studies 06/07/16 06/07/16 06/06/16 Range/Units 05:50 05:00 21:52 WBC 33.1 H* (4.5-11.0) 10^3/ul RBC 3.71 (3.5-6.1) 10^6/uL Hgb 10.5 L (14.0-18.0) gm/dL Hct 34.0 L (42.0-52.0) % MCV 91.6 (80.0-105.0) fL MCH 28.3 (25.0-35.0) pg MCHC 30.9 L (31.0-37.0) g/dl RDW 19.3 H (11.5-14.5) % Plt Count 472 H (120.0-450.0) 10^3/uL MPV 12.2 H (7.0-11.0) fl Neutrophils % (Manual) 92 H (50.0-70.0) % Lymphocytes % (Manual) 4 L (22.0-35.0) % Monocytes % (Manual) 4 (1.0-6.0) % Platelet Evaluation High (NORMAL) pCO2 55 H (35-45) mm/Hg pO2 108.0 H (80-100) mm/Hg HCO3 32.5 H (21-28) mmol/L ABG pH 7.38 (7.35-7.45) ABG Total CO2 34.2 H (22-28) mmol.L ABG O2 Saturation 98.9 H (95-98) % ABG O2 Content 16.4 (15-23) ML/dl ABG Base Excess 6.0 H (-2.0-3.0) mmol/L ABG Hemoglobin 12.0 (11.7-17.4) g/dL ABG Carboxyhemoglobin 2.0 H (0.5-1.5) % POC ABG HHb (Measured) 1.1 (0-5) % ABG Methemoglobin 0.9 (0.0-3.0) % ABG O2 Capacity 16.6 (16-24) mL/dl Hgb O2 Saturation 96.0 (95.0-98.0) % FiO2 60.0 % Sodium 143 (132-148) mmol/L Potassium 3.8 (3.6-5.0) mmol/L Chloride 108 H (98-107) mmol/L Carbon Dioxide 30 (21-33) mmol/L Anion Gap 9 L (10-20) BUN 26 H (7-21) mg/dL Creatinine 0.5 (0.5-1.4) mg/dL Est GFR ( Amer) > 60 Est GFR (Non-Af Amer) > 60 POC Glucose (mg/dL) 149 H (65-110) mg/dL Random Glucose 120 H (70-110) mg/dL Calcium 7.6 L (8.4-10.5) mg/dL Total Bilirubin 0.9 (0.2-1.3) mg/dL AST 98 H (15-59) U/L ALT 59 H (7-56) U/L Alkaline Phosphatase 152 H (38-133) U/L Total Protein 5.2 L (5.8-8.3) g/dL Albumin 2.0 L (3.0-4.8) g/dL Globulin 3.1 gm/dL Albumin/Globulin Ratio 0.6 L (1.1-1.8) Procalcitonin 0.17 L (0.19-0.49) NG/ML // Range/Units 16:19 WBC (4.5-11.0) 10^3/ul RBC (3.5-6.1) 10^6/uL Hgb (14.0-18.0) gm/dL Hct (42.0-52.0) % MCV (80.0-105.0) fL MCH (25.0-35.0) pg MCHC (31.0-37.0) g/dl RDW (11.5-14.5) % Plt Count (120.0-450.0) 10^3/uL MPV (7.0-11.0) fl Neutrophils % (Manual) (50.0-70.0) % Lymphocytes % (Manual) (22.0-35.0) % Monocytes % (Manual) (1.0-6.0) % Platelet Evaluation (NORMAL) pCO2 (35-45) mm/Hg pO2 (80-100) mm/Hg HCO3 (21-28) mmol/L ABG pH (7.35-7.45) ABG Total CO2 (22-28) mmol.L ABG O2 Saturation (95-98) % ABG O2 Content (15-23) ML/dl ABG Base Excess (-2.0-3.0) mmol/L ABG Hemoglobin (11.7-17.4) g/dL ABG Carboxyhemoglobin (0.5-1.5) % POC ABG HHb (Measured) (0-5) % ABG Methemoglobin (0.0-3.0) % ABG O2 Capacity (16-24) mL/dl Hgb O2 Saturation (95.0-98.0) % FiO2 % Sodium (132-148) mmol/L Potassium (3.6-5.0) mmol/L Chloride (98-107) mmol/L Carbon Dioxide (21-33) mmol/L Anion Gap (10-20) BUN (7-21) mg/dL Creatinine (0.5-1.4) mg/dL Est GFR ( Amer) Est GFR (Non-Af Amer) POC Glucose (mg/dL) 149 H (65-110) mg/dL Random Glucose (70-110) mg/dL Calcium (8.4-10.5) mg/dL Total Bilirubin (0.2-1.3) mg/dL AST (15-59) U/L ALT (7-56) U/L Alkaline Phosphatase (38-133) U/L Total Protein (5.8-8.3) g/dL Albumin (3.0-4.8) g/dL Globulin gm/dL Albumin/Globulin Ratio (1.1-1.8) Procalcitonin (0.19-0.49) NG/ML Laboratory Results - last 24 hr 06/06/16 06/06/16 06/07/16 16:19 21:52 05:00 WBC RBC Hgb Hct MCV MCH MCHC RDW Plt Count MPV Neutrophils % (Manual) Lymphocytes % (Manual) Monocytes % (Manual) Platelet Evaluation pCO2 55 H pO2 108.0 H HCO3 32.5 H ABG pH 7.38 ABG Total CO2 34.2 H ABG O2 Saturation 98.9 H ABG O2 Content 16.4 ABG Base Excess 6.0 H ABG Hemoglobin 12.0 ABG Carboxyhemoglobin 2.0 H POC ABG HHb (Measured) 1.1 ABG Methemoglobin 0.9 ABG O2 Capacity 16.6 Hgb O2 Saturation 96.0 FiO2 60.0 Sodium Potassium Chloride Carbon Dioxide Anion Gap BUN Creatinine Est GFR ( Amer) Est GFR (Non-Af Amer) POC Glucose (mg/dL) 149 H 149 H Random Glucose Calcium Total Bilirubin AST ALT Alkaline Phosphatase Total Protein Albumin Globulin Albumin/Globulin Ratio Procalcitonin 06/07/16 05:50 WBC 33.1 H* RBC 3.71 Hgb 10.5 L Hct 34.0 L MCV 91.6 MCH 28.3 MCHC 30.9 L RDW 19.3 H Plt Count 472 H MPV 12.2 H Neutrophils % (Manual) 92 H Lymphocytes % (Manual) 4 L Monocytes % (Manual) 4 Platelet Evaluation High pCO2 pO2 HCO3 ABG pH ABG Total CO2 ABG O2 Saturation ABG O2 Content ABG Base Excess ABG Hemoglobin ABG Carboxyhemoglobin POC ABG HHb (Measured) ABG Methemoglobin ABG O2 Capacity Hgb O2 Saturation FiO2 Sodium 143 Potassium 3.8 Chloride 108 H Carbon Dioxide 30 Anion Gap 9 L BUN 26 H Creatinine 0.5 Est GFR ( Amer) > 60 Est GFR (Non-Af Amer) > 60 POC Glucose (mg/dL) Random Glucose 120 H Calcium 7.6 L Total Bilirubin 0.9 AST 98 H ALT 59 H Alkaline Phosphatase 152 H Total Protein 5.2 L Albumin 2.0 L Globulin 3.1 Albumin/Globulin Ratio 0.6 L Procalcitonin 0.17 L Critical Care Progress Note - Nutrition Nutrition: Nutrition Category Date Time Status NPO past midnight [NPO Diet] [DIET] Diets 06/07/16 Lunch Ordered Addendum Addendum: 06/07/16 15:47 patient was seen and examined at bedside with Dr. roger Britton. please see Dr. Molina note
--- NOTE | 2016-06-07 17:39 | PN ---
DATE: 06/07/2016 The patient seen and examined at bedside. He is on Precedex 0.5 mcg per kilogram per hour; however, it was decreased down to 0.2 mcg per kilogram per hour. He is on pressure support 5/5. His rapid shallow breathing index is 19. He is pulling about 350 mL of tidal volume and his respiratory rate 29-32. PHYSICAL EXAMINATION: VITAL SIGNS: Heart rate 105, blood pressure 136/65, oxygen saturation 98% on 60 % FIO2, end tidal CO2 on the monitor 38. HEAD AND NECK: Atraumatic. The patient opens eyes on commands; however, unable to communicate more than that. LUNGS: A few crackles bilaterally. HEART: Regular rate and rhythm. S1, S2 normal. ABDOMEN: Soft, nontender, nondistended. MUSCULOSKELETAL: Trace bilateral pedal and ankle edema. NEUROLOGIC: The patient has decreased muscle tone (? critical care polymyopathy , polyneuropathy). SKIN: Moist. PSYCHIATRIC: The patient a little bit more alert today. LABORATORY DATA: WBC of 33.1 down from 37.0, hemoglobin 10.5, platelet count 472. Sodium 143, potassium 3.8, chloride 108, carbon dioxide 30, BUN 6, creatinine 0.5, glucose 120, AST 98, ALT 59. MEDICATIONS: DuoNeb every 6, Precedex , Flagyl, regular insulin sliding scale medium protocol, meropenem, Protonix, Solu-Medrol 20 mg IV daily (down to 10 mg IV daily), vancomycin. ASSESSMENT AND PLAN: This is an 86-year-old gentleman with ventilator- dependent respiratory failure, status post severe adult respiratory distress syndrome due to aspiration pneumonitis/pneumonia. The patient initially had hemorrhagic shock due to bleeding from the anastomotic site from the recent surgery; however, that has resolved and the patient is hemodynamically stable at the present time. It appears that he has started to tolerate pressure support trial a little bit longer. He, however, at present time, would not be able to control his airways had he been extubated. The patient is going for tracheostomy and percutaneous endoscopic gastrostomy tomorrow and we will continue to wean him off mechanical ventilation. Meanwhile attempts to contact his closest family members ongoing; however, so far, unsuccessful. 1. Neurologic: The patient has toxic metabolic encephalopathy due to his critical illness. We are tapering down Precedex and now it is at 0.2 mcg per kilogram per hour. The goal is to stop all sedation altogether today. The patient appears to be a little bit more alert today. 2. Pulmonary: The patient tolerated pressure support 5/5 with FIO2 60% for about 1 hour now and we will continue the trial. We will continue with conservative fluid and oxygen management. We will continue with head of bed elevated more than 35 degrees, VAP bundle. The patient is on broad-spectrum antibiotics. Trach in am. 3. Cardiovascular: The patient is hemodynamically relatively stable with only mild tachycardia at 107. 4. Gastrointestinal: The patient tolerates enteral nutrition well. However, he had some diarrhea. C.diff was negative. We will switch enteral formula to Vital AF to help to improve diarrhea. 5. Infectious disease: The patient is on broad-spectrum antibiotics. Infectious component to his bilateral fluffy infiltrates cannot be ruled out. Infectious disease service is following him as well. We will also follow up on procalcitonin level. 6. Endocrine: We will continue to target euglycemia for additional muscle protective effect. The patient does have what appears to critical illness polyneuropathy/polymyopathy. We will continue to taper down his steroids that we initiated for early adult respiratory distress syndrome. Today's dose of Solu-Medrol will be down to 10 mg IV daily. 7. Renal: The patient has good urine output and his creatinine level appears to be normal. 8. AVA: CIP: maintain euvolemia, euglycemia, early mobilization if/when mental status allows, PT We will continue to target euvolemia, euglycemia, normothermia and oxygen saturation more than 90%. We will continue with deep venous thrombosis and gastrointestinal prophylaxis. The patient's hemoglobin is stable and no signs of active bleeding present. ccm time 40 min Javier Molina MD cc: [id number] TT: 06/07/2016 17:39:07 Confirmation # [id number] Dictation # [id number] [id number]
[2016-06-07] MEDS: Vitamins A & D Oint UD Foilpak TOP PRN (18:00)
[2016-06-07] MEDS: Dexmedetomidine HCl 4mcg/ml 100 ML IV PRN (20:36)
--- NOTE | 2016-06-07 22:09 | CP.PCM.PN ---
Subjective - Date & Time of Evaluation Date of Evaluation: 06/07/16 Time of Evaluation: 20:15 - Subjective Subjective: Infectious Disease Follow Up: June 07, 2016 85 yo male with initial presentation for abdominal pain and abnormal CT scan sent from [facility] facility (I think [facility] [place]). 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 Currently the patient appears comfortable. He is unable to give any relevant information due to a severe developmental delay. Patient is currently post-operative day #14 and has been displaying increased leukocytosis since the surgery. Patient himself is intubated and ventilated. He was brought to MICU and remain here since. He required intubation and ventilation. Signs of aspiration pneumonia. On meropenem for now. Persistent leukocytosis. Patient in critical condition. Right IJ placed by MICU team. Case discussed with Dr. Pringle and Dr. Molina. The patient is on Meropenem and Flagyl for antibiotic coverage. Leukocytosis remains elevated at 37.0 today. Patient remains in critical condition but seems to have no further deterioration. Patient did receive 6 U of PRBCs, 4 U of FFP, and 1 U of platelets during the first 24 hours in ICU. Surgery has asked for a C. diff study which is negative. Melena and blood clots from rectum have slowed down considerably. Patient has an extremely poor prognosis. There has been no improvement of the patient's mental status over the past few days. The patient has been essentially non-responsive. Still very high leukocytosis. Multiple potential reasons for increased leukocytosis including high dose steroids. On the whole, the patient is afebrile and improving respiratory sigala. Mentally no improvement at all. Currently off pressors and sedation. Poorly responsive. Very poor prognosis. Remains intubated and ventilated. Attempts to wean off ventilator. Mentally, no improvement. No family available. Occasionally open eyes but no meaningful interaction. Objective - Vital Signs/Intake and Output Vital Signs (last 24 hours): Temp Pulse Resp BP Pulse Ox 98.0 F 92 H 31 H 111/54 L 97 06/07/16 20:00 06/07/16 20:52 06/07/16 12:00 06/07/16 20:00 06/07/16 20:52 Intake and Output: 06/07/16 06/08/16 18:59 06:59 Intake Total 1290 Output Total 950 Balance 340 - Medications Medications: Current Medications Albuterol/Ipratropium (Duoneb 3 Mg/0.5 Mg (3 Ml) Ud) 3 ml IH [id number] [facility] Last Admin: 06/07/16 19:20 Dose: 3 ml Metronidazole (Flagyl) 100 mls @ 100 mls/hr IVPB Q8 [facility] PRN Reason: Protocol Last Admin: 06/07/16 21:23 Dose: 100 mls/hr Vancomycin HCl 1 gm/ Dextrose 250 mls @ 166.667 mls/hr IVPB Q12 [facility] Last Admin: 06/07/16 10:17 Dose: 166.667 mls/hr Dexmedetomidine HCl (Precedex 4 Mcg/Ml (100 Ml)) 100 mls @ 3.645 mls/hr IV .Q24H PRN; Protocol; 0.2 MCG/KG/HR PRN Reason: Agitation Last Titration: 06/07/16 21:21 Dose: 0.6 mcg/kg/hr MEROPENEM-0.9% SODIUM CHLORIDE (Meropenem 1g/Ns 100ml Ivpb) 100 mls @ 100 mls/ hr IVPB Q8 [facility] PRN Reason: Protocol Last Admin: 06/07/16 21:23 Dose: 100 mls/hr Insulin Human Lispro (Humalog Med) 0 units SC ACHS [facility] PRN Reason: Protocol Last Admin: 06/07/16 12:37 Dose: Not Given Methylprednisolone (Solu-Medrol) 10 mg IVP DAILY [facility] Pantoprazole Sodium (Protonix Inj) 40 mg IVP Q12 [facility] Last Admin: 06/07/16 21:24 Dose: 40 mg Vitamin A (Vitamin A & D Oint Ud Foilpak) 1 ea TOP Q12H PRN PRN Reason: Apply to dry lips - Labs Labs: 06/07/16 05:50 06/07/16 05:50 PT 16.7 Seconds (9.9-11.8) H 05/27/16 17:35 INR 1.55 (0.93-1.08) H 05/27/16 17:35 APTT 28.1 Seconds (23.7-30.8) 05/27/16 17:35 - Constitutional Appears: Non-toxic, No Acute Distress, Cachectic, Chronically Ill - Head Exam Additional comments: intubated and ventilated. - Eye Exam Eye Exam: EOMI, PERRL Pupil Exam: NORMAL ACCOMODATION, PERRL - ENT Exam ENT Exam: Mucous Membranes Moist, Normal External Ear Exam, TM's Normal Bilaterally - Neck Exam Neck Exam: Full ROM, Normal Inspection - Respiratory Exam Respiratory Exam: Clear to Ausculation Bilateral, NORMAL BREATHING PATTERN. absent: Rales, Rhonchi, Wheezes - Cardiovascular Exam Cardiovascular Exam: REGULAR RHYTHM, RRR, +S1, +S2 - GI/Abdominal Exam GI & Abdominal Exam: Soft, Normal Bowel Sounds. absent: Distended, Tenderness - Extremities Exam Additional comments: thin and cachetic. edema +1-2 of the bilateral upper extremities. Scrotal swelling. mild edema of the lower extremities. - Neurological Exam Additional comments: Intubated, ventilated, and poorly responsive. - Psychiatric Exam Additional comments: Intubated, ventilated, and poorly responsive. Assessment and Plan - Assessment and Plan (Free Text) Assessment: 85 yo male with cecal mass and bilateral hernia had exploratory laparotomy with right hemicolectomy. The patient is unable to give any significant information when speaking with him. He is not complaining of pain. The patient leukocytosis remains elevated at 37.0. There is a mild left shift to the leukocytosis. Supportive care. Silva cultures sent. Had Proteus in urine culture over a week ago but more recent urine culture is negative for growth. No growth in recent cultures so far. C. Diff studies negative. Currently on Meropenem and Flagyl for antibiotic coverage. Supportive care. Extremely poor prognosis with care bordering on futility at this point. No improvement in mental status over the past few days. Remains in MICU and required intubation and ventilation. On antibiotics of Vancomycin, Meropenem, and Flagyl currently. Awaiting repeat cultures - negative to date at 5+ days. No further surgical interventions. Possible aspiration pneumonia. Bleed at anastomotic site. Patient is hemodynamically stable. CT when patient stable enough to do so. He is currently off pressors and sedation. Repeat Abdominal X-ray shows resolvement of SBO portion of disease. Patient remains critically ill and has an extremely poor prognosis. He remains intubated and ventilated. There are attempts to wean off ventilator. No family available for decision making for the patient. Persistent high leukocytosis. Hernias... incarcerated? Thank you for allowing me to participate in the care of the patient, we will follow with you.
[2016-06-08] MEDS: Albuterol-Ipratrop 3 mg / 0.5 (3 ml) UD IH SCH ×3 (01:17→20:00)
[2016-06-08] MEDS: metroNIDAZOLE IV 500 mg/100 ml 100 ML IVPB SCH ×2 (05:09→22:11)
[2016-06-08] MEDS: Meropenem 1g/NS 100mL IVPB 100 ML IVPB SCH ×2 (05:11→22:12)
[2016-06-08] MEDS: Dexmedetomidine HCl 4mcg/ml 100 ML IV PRN ×2 (05:16→08:59)
[2016-06-08 05:31] LABS: ARTERIAL BLOOD GAS HCO3 34.3 mmol/L (21-28); ARTERIAL BLOOD GAS O2 CAPACITY 13.2 mL/dl (16-24); ARTERIAL BLOOD GAS O2 CONTENT 13.1 ML/dl (15-23); ARTERIAL BLOOD GAS PH 7.48 (7.35-7.45); ARTERIAL BLOOD HGB O2 SAT 95.8 % (95.0-98.0); HHB 1.1 % (0-5); METHEMOGLOBIN 1.1 % (0.0-3.0)
[2016-06-08 06:15] LABS: BASO # 0.01 K/mm3 (0.0-2.0); EOS # 0.2 (0.0-0.7); EOS % 0.9 % (1.5-5.0); GRAN # 19.04 (1.4-6.5); GRAN % 90.2 % (50.0-68.0); HEMATOCRIT 29.3 % (42.0-52.0); LYMPH # 0.6 (1.2-3.4); LYMPH % 2.7 % (22.0-35.0); MEAN CELL VOLUME 92.1 fL (80.0-105.0); MEAN CORPUSCULAR HEMOGLOBIN 29.6 pg (25.0-35.0); MEAN CORPUSCULAR HGB CONC 32.1 g/dl (31.0-37.0); MEAN PLATELET VOLUME 12.1 fl (7.0-11.0); MONO # 1.3 (0.1-0.6); MONO % 6.2 % (1.0-6.0); PLATELET COUNT 394 10^3/uL (120.0-450.0); WHITE BLOOD COUNT 21.1 10^3/ul (4.5-11.0)
[2016-06-08 06:36] LABS: ALB/GLOB RATIO 0.6 (1.1-1.8); ALKALINE PHOSPHATASE 118 U/L (38-133); ALT/SGPT 48 U/L (7-56); AST/SGOT 55 U/L (15-59); BLOOD UREA NITROGEN 22 mg/dL (7-21); CALCIUM 7.3 mg/dL (8.4-10.5); CARBON DIOXIDE 33 mmol/L (21-33); CHLORIDE 107 mmol/L (98-107); GFR AFRICAN-AMERICAN > 60; GLUCOSE,RANDOM 88 mg/dL (70-110); PHOSPHOROUS 2.2 mg/dL (2.5-4.5); POTASSIUM 3.7 mmol/L (3.6-5.0); SODIUM 142 mmol/L (132-148); TOTAL PROTEIN 4.7 g/dL (5.8-8.3)
[2016-06-08 07:08] LABS: ADD MANUAL DIFF? NO
[2016-06-08] MEDS: Insulin Lispro (humaLOG) MEDIUM Coverage SC SCH ×3 (08:54→22:04)
[2016-06-08] MEDS: Vancomycin 1 GM in Dextrose 5% In Water 250 ML IVPB SCH ×2 (09:01→22:06)
[2016-06-08] MEDS: Vitamins A & D Oint UD Foilpak TOP PRN (09:07)
--- NOTE | 2016-06-08 09:26 | RAD ---
HISTORY: intubated COMPARISON: Comparison is made to the previous study dated 06/07/2016 FINDINGS: LUNGS: Persistent patchy opacities more prominent at the left lower lung. The ET tube is seen at appropriate position. PLEURA: No significant pleural effusion identified, no pneumothorax apparent. CARDIOVASCULAR: No evidence of significant cardiomegaly. OSSEOUS STRUCTURES: No significant abnormalities. VISUALIZED UPPER ABDOMEN: The NG tube seen extending to the abdomen. OTHER FINDINGS: Right jugular central line is seen in place. IMPRESSION: No evidence of significant interval change. Appropriate position of the support devices.
[2016-06-08 09:41] LABS: INR 1.43 (0.93-1.08); PARTIAL THROMBOPLASTIN TIME 31.8 Seconds (23.7-30.8)
[2016-06-08] MEDS ORDERED: MethylPREDNISolone 40 mg Vial IVP SCH (10:00)
--- NOTE | 2016-06-08 10:44 | PN ---
DATE: 06/08/2016 The patient is seen and examined at bedside. He is on Precedex 0.7 mg/kg per hour. He is on PRBC in anticipation of going for tracheotomy, 350/20/60. The patient is off of any pressors. PHYSICAL EXAMINATION: VITAL SIGNS: Heart rate 83, oxygen saturation 96%, respiratory rate 27, end- tidal CO2 on the monitor 40, blood pressure 125/67. HEAD AND NECK: Atraumatic. LUNGS: Clear to auscultation bilaterally. HEART: Regular rate and rhythm. S1, S2 distant. ABDOMEN: Soft, nontender, nondistended. MUSCULOSKELETAL: No C/C/E. NEUROLOGIC: The patient is sedated and is not observed moving all extremities spontaneously. SKIN: Moist. PSYCHIATRIC: The patient is sedated. LABORATORY DATA: WBC 21.1 - down from 33.1, hemoglobin 9.4, platelet count 394. Sodium 142, potassium 3.7, chloride 107, carbon dioxide 33, BUN 22, creatinine 0.5, glucose 88. AST 55, ALT 48. Procalcitonin is 0.17. Blood gas today: 7.48/46/111 on 60% FiO2. MEDICATIONS: DuoNeb every 6, Precedex, Flagyl, regular insulin sliding scale medium protocol, meropenem, Protonix, Solu-Medrol 10 mg IV daily, vancomycin, and vitamin A and D topical. ASSESSMENT AND PLAN: This is an 86-year-old gentleman with resolved hemorrhagic shock whose intensive care unit course was complicated by severe acute respiratory distress syndrome due to aspiration pneumonia/pneumonitis due to synchronous upper gastrointestinal bleed and inability to protect airways. At present time, his acute respiratory distress syndrome substantially improved. He was tolerating pressure support for more than an hour yesterday. He is going for trach and surgical gastrostomy tube today. We will continue with protective lung ventilation strategy. However, we will continue weaning him from mechanical ventilation once trach is done. We will also wean his sedation. Hopefully, once trach is done, his comfort level will substantially improve, which allows wean off precedex as well. The patient's procalcitonin has continued to decline. I will touch base with Dr. Church about peeling off antibiotics. We will continue to trend his procalcitonin. His leukocytosis has substantially improved. He is afebrile at present time. Attempts to get in touch with his family for the advance directives so far are unsuccessful. The patient is n.p.o. for the procedure. However, once gastrostomy tube is done , we will resume enteral nutrition. The patient does need physical therapy even if only for passive motion range. We will also maintain euvolemia and euglycemia to expedite resolution of critical illness polyneuropathy/ polymyopathy. Renally-sigala, the patient is stable. He is making good urine, and his creatinine is within normal limits. Endocrine-sigala, we will maintain euglycemia , and we will continue to taper off his steroids that were initiated for early acute respiratory distress syndrome. Cardiovascular-sigala, the patient is hemodynamically stable. We will continue with deep venous thrombosis and gastrointestinal prophylaxis. Once trach and percutaneous endoscopic gastrostomy tube done, I will touch base with surgery for clearance for heparin subQ. ccm time 40 min Javier Molina MD cc: [id number] TT: 06/08/2016 10:43:43 Confirmation # [id number] Dictation # [id number] jn MTDD
[2016-06-08] MEDS ORDERED: Bupivacaine 0.5% Inj(30mL) ONE (11:00)
[2016-06-08] MEDS ORDERED: Lidocaine 1% Inj (20ml) ONE (11:00)
[2016-06-08] MEDS ORDERED: Propofol 10 mg/ml Inj (20 ML) ONE (11:05)
[2016-06-08] MEDS ORDERED: ePHEDrine 50 mg/ml Inj ONE (11:05)
[2016-06-08] MEDS ORDERED: Phenylephrine 10 mg/ml Inj ONE (11:05)
[2016-06-08] MEDS ORDERED: Midazolam 2 MG/2 ML VIAL ONE (11:06)
[2016-06-08] MEDS ORDERED: Rocuronium 10 mg/ml (5 ml) ONE ×2 (11:23→12:52)
--- NOTE | 2016-06-08 13:45 | PCM.SURG1 ---
Surgeon's Initial Post Op Note - Surgeon's Notes Surgeon: Nicholas Editorial Specialist: Mily Coredro Pre-Operative Diagnosis: dysphagia/Lack of airway control Operative Findings: trachea and Stomach Post-Operative Diagnosis: Dysphagia/ lack of airway control Operation Performed: Tracheostomy and Gastrostomy Specimen/Specimens Removed: n/a Estimated Blood Loss: EBL {In ML}: 20 Date of Surgery/Procedure: 06/08/16 Time of Surgery/Procedure: 12:00
--- NOTE | 2016-06-08 13:47 | PN ---
DATE: 06/08/2016 This 86-year-old male was examined at his bedside, bed 1, ICU. Case was discussed with Dr. Javier Molina and Dr. Fuentes Victoria from infectious disease and Dr. Alberto Peterson from surgery. The patient is on schedule for tracheostomy and surgically placed G-tube because of respiratory failure and need for pulmonary toiletry. The patient remains unresponsive. He has no purposeful movements. He is unresponsive to verbal or noxious stimuli and to date, no family members have been able to be reached regarding discussion of the patient's management including code status or consents for current procedures. He remains in a normal sinus rhythm on the monitor. PHYSICAL EXAMINATION: VITAL SIGNS: Temperature 98.2, respirations 28, pulse 86, blood pressure 110/ 44 with a pulse ox of 99%. He is on 60% FiO2 and 6 of PEEP. I's and O's, 1004 mL in, 600 mL out. HEAD: Normocephalic, atraumatic. EYES: No icterus. EARS: Clear. THROAT: ET tube in place. NECK: Supple. HEART: S1, S2. No pathological rubs, murmurs, or gallops. LUNGS: With occasional rhonchi. ABDOMEN: Soft. EXTREMITIES: No edema. He is wearing anti-embolism stockings. SKIN: Warm and dry. VASCULAR: Legs warm to touch. PSYCHOLOGICAL: Unresponsive. NEUROLOGICAL: Unresponsive. LABORATORIES: White count 21,100, hemoglobin 9.4, hematocrit 29.3, platelets 394,000. Blood gas, pH 7.48, pCO2 46, pO2 111, bicarb 35. Sodium 142, K 3.7, chloride 107, bicarbonate 33, BUN 22, creatinine 0.5, random blood sugar 88, magnesium 2.0, bilirubin 1.0, AST 55, ALT 48, alkaline phosphatase 118. Chest x-ray shows no change in bilateral infiltrates. 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 PLAN: At present is to proceed with tracheostomy and surgically placed PEG tube. He will continue as discussed with Dr. Go on IV vancomycin, meropenem and Flagyl. He continues on tapering doses of Solu-Medrol. He continues on IV Protonix 40 mg q. 12, insulin sliding scale before meals and at bedtime, DuoNeb nebulizers q. 6, ventilatory support, aspiration precautions, fall precautions, and sequential compression devices, anti-embolisms stockings. He is receiving bedside physical therapy, pulmonary toiletry. He will have serial labs, serial blood gases and will need social service to arrange disposition for this critically ill male. Overall prognosis is guarded. Approximately 1 hour was spent in the care, coordination of care and discussion of care of this patient with nursing staff and co-consultants including hematology/oncology, palliative care, GI, surgery, infectious disease and neurology. Codi Pringle MD cc: [id number] TT: 06/08/2016 13:46:16 Confirmation # [id number] Dictation # [id number] en MTDD
--- NOTE | 2016-06-08 14:30 | RAD ---
PROCEDURE: Chest portable HISTORY: s/p tracheostomy/gastrostomy COMPARISON: June 08, 2016. 05:19. TECHNIQUE: Technique: Single view portable semi erect @ 13:55. FINDINGS: Tracheostomy device replaces endotracheal tube identified previously. Stable multifocal infiltrates primarily right upper lobe and left lower lobe. Venous access catheter in stable, satisfactory position. Removal of support apparatus since the prior study: Nasogastric tube removed in the interim. IMPRESSION: Satisfactory position of recently replaced endotracheal tube with tracheostomy device. Otherwise no interval change.
--- NOTE | 2016-06-08 19:06 | CP.PCM.PN ---
Subjective - Date & Time of Evaluation Date of Evaluation: 06/08/16 Time of Evaluation: 17:30 - Subjective Subjective: Infectious Disease Follow Up: June 08, 2016 85 yo male with initial presentation for abdominal pain and abnormal CT scan sent from [facility] facility (I think [facility] [place]). 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 Currently the patient appears comfortable. He is unable to give any relevant information due to a severe developmental delay. Patient is currently post-operative day #14 and has been displaying increased leukocytosis since the surgery. Patient himself is intubated and ventilated. He was brought to MICU and remain here since. He required intubation and ventilation. Signs of aspiration pneumonia. On meropenem for now. Persistent leukocytosis. Patient in critical condition. Right IJ placed by MICU team. Case discussed with Dr. Pringle and Dr. Molina. The patient is on Meropenem and Flagyl for antibiotic coverage. Leukocytosis remains elevated at 37.0 today. Patient remains in critical condition but seems to have no further deterioration. Patient did receive 6 U of PRBCs, 4 U of FFP, and 1 U of platelets during the first 24 hours in ICU. Surgery has asked for a C. diff study which is negative. Melena and blood clots from rectum have slowed down considerably. Patient has an extremely poor prognosis. There has been no improvement of the patient's mental status over the past few days. The patient has been essentially non-responsive. Still very high leukocytosis. Multiple potential reasons for increased leukocytosis including high dose steroids. On the whole, the patient is afebrile and improving respiratory sigala. Mentally no improvement at all. Currently off pressors and sedation. Poorly responsive. Very poor prognosis. Remains intubated and ventilated. Attempts to wean off ventilator. Mentally, no improvement. No family available. Occasionally open eyes but no meaningful interaction. Went for tracheotomy and PEG placement today. Objective - Vital Signs/Intake and Output Vital Signs (last 24 hours): Temp Pulse Resp BP Pulse Ox 98.2 F 86 28 H 95/51 L 99 06/08/16 04:00 06/08/16 10:00 06/08/16 08:06 06/08/16 10:00 06/08/16 10:00 Intake and Output: 06/08/16 06/08/16 06:59 18:59 Intake Total 1004 Output Total 600 Balance 404 - Medications Medications: Current Medications Albuterol/Ipratropium (Duoneb 3 Mg/0.5 Mg (3 Ml) Ud) 3 ml IH [id number] [facility] Last Admin: 06/08/16 07:06 Dose: 3 ml Heparin Sodium (Porcine) (Heparin) 5,000 units SC Q12 [facility] PRN Reason: Protocol Metronidazole (Flagyl) 100 mls @ 100 mls/hr IVPB Q8 [facility] PRN Reason: Protocol Last Admin: 06/08/16 05:09 Dose: 100 mls/hr Vancomycin HCl 1 gm/ Dextrose 250 mls @ 166.667 mls/hr IVPB Q12 [facility] Last Admin: 06/08/16 09:01 Dose: 166.667 mls/hr Dexmedetomidine HCl (Precedex 4 Mcg/Ml (100 Ml)) 100 mls @ 3.645 mls/hr IV .Q24H PRN; Protocol; 0.2 MCG/KG/HR PRN Reason: Agitation Last Admin: 06/08/16 08:59 Dose: 12.756 mls/hr MEROPENEM-0.9% SODIUM CHLORIDE (Meropenem 1g/Ns 100ml Ivpb) 100 mls @ 100 mls/ hr IVPB Q8 [facility] PRN Reason: Protocol Last Admin: 06/08/16 05:11 Dose: 100 mls/hr Insulin Human Lispro (Humalog Med) 0 units SC ACHS [facility] PRN Reason: Protocol Last Admin: 06/08/16 13:38 Dose: Not Given Morphine Sulfate (Morphine) 4 mg IVP Q4H PRN PRN Reason: Pain, moderate (4-7) Pantoprazole Sodium (Protonix Inj) 40 mg IVP Q12 [facility] Last Admin: 06/08/16 09:02 Dose: 40 mg Vitamin A (Vitamin A & D Oint Ud Foilpak) 1 ea TOP Q12H PRN PRN Reason: Apply to dry lips Last Admin: 06/08/16 09:07 Dose: 1 ea - Labs Labs: 06/08/16 06:00 06/08/16 06:00 PT 15.4 Seconds (9.9-11.8) H 06/08/16 08:18 INR 1.43 (0.93-1.08) H 06/08/16 08:18 APTT 31.8 Seconds (23.7-30.8) H 06/08/16 08:18 - Constitutional Appears: Non-toxic, No Acute Distress, Cachectic, Chronically Ill - Head Exam Additional comments: intubated and ventilated. - Eye Exam Eye Exam: EOMI, PERRL Pupil Exam: NORMAL ACCOMODATION, PERRL - ENT Exam ENT Exam: Mucous Membranes Moist, Normal External Ear Exam, TM's Normal Bilaterally - Neck Exam Neck Exam: Full ROM, Normal Inspection - Respiratory Exam Respiratory Exam: Clear to Ausculation Bilateral - Cardiovascular Exam Cardiovascular Exam: REGULAR RHYTHM, RRR, +S1, +S2 - GI/Abdominal Exam GI & Abdominal Exam: Soft, Normal Bowel Sounds Additional comments: PEG in place. - Extremities Exam Additional comments: thin and cachetic. edema +1-2 of the bilateral upper extremities. Scrotal swelling. mild edema of the lower extremities. - Neurological Exam Additional comments: Intubated, ventilated, and poorly responsive. - Psychiatric Exam Additional comments: Intubated, ventilated, and poorly responsive. Assessment and Plan - Assessment and Plan (Free Text) Assessment: 85 yo male with cecal mass and bilateral hernia had exploratory laparotomy with right hemicolectomy. The patient is unable to give any significant information when speaking with him. He is not complaining of pain. The patient leukocytosis remains elevated at 37.0. There is a mild left shift to the leukocytosis. Supportive care. Silva cultures sent. Had Proteus in urine culture over a week ago but more recent urine culture is negative for growth. No growth in recent cultures so far. C. Diff studies negative. Currently on Meropenem and Flagyl for antibiotic coverage. Supportive care. Extremely poor prognosis with care bordering on futility at this point. No improvement in mental status over the past few days. Remains in MICU and required intubation and ventilation. On antibiotics of Vancomycin, Meropenem, and Flagyl currently. Awaiting repeat cultures - negative to date at 5+ days. No further surgical interventions. Possible aspiration pneumonia. Bleed at anastomotic site. Patient is hemodynamically stable. CT when patient stable enough to do so. He is currently off pressors and sedation. Repeat Abdominal X-ray shows resolvement of SBO portion of disease. Patient remains critically ill and has an extremely poor prognosis. He remains intubated and ventilated. There are attempts to wean off ventilator. No family available for decision making for the patient. Persistent high leukocytosis. The patient has gone for PEG and trach placement today. Thank you for allowing me to participate in the care of the patient, we will follow with you.
[2016-06-08] MEDS: Morphine 4 mg/ml ISec IVP PRN (22:35)
[2016-06-09] MEDS: Morphine 4 mg/ml ISec IVP PRN ×2 (03:29→15:58)
[2016-06-09] MEDS: metroNIDAZOLE IV 500 mg/100 ml 100 ML IVPB SCH ×4 (05:10→21:25)
[2016-06-09] MEDS: Meropenem 1g/NS 100mL IVPB 100 ML IVPB SCH ×3 (05:10→21:23)
[2016-06-09 05:41] LABS: ARTERIAL BLOOD GAS O2 CAPACITY 18.8 mL/dl (16-24); ARTERIAL BLOOD GAS PH 7.42 (7.35-7.45); ARTERIAL BLOOD HGB O2 SAT 92.9 % (95.0-98.0); CARBOXYHEMOGLOBIN 2.3 % (0.5-1.5); HHB 4.2 % (0-5); METHEMOGLOBIN 0.7 % (0.0-3.0)
[2016-06-09 06:11] LABS: ADD MANUAL DIFF? NO
[2016-06-09 06:36] LABS: BASO # 0.01 K/mm3 (0.0-2.0); BASO % 0.1 % (0.0-3.0); EOS # 0.1 (0.0-0.7); EOS % 0.3 % (1.5-5.0); GRAN # 16.41 (1.4-6.5); GRAN % 89.3 % (50.0-68.0); HEMATOCRIT 28.4 % (42.0-52.0); LYMPH # 0.5 (1.2-3.4); LYMPH % 2.7 % (22.0-35.0); MEAN CELL VOLUME 92.5 fL (80.0-105.0); MEAN CORPUSCULAR HEMOGLOBIN 28.3 pg (25.0-35.0); MEAN CORPUSCULAR HGB CONC 30.6 g/dl (31.0-37.0); MEAN PLATELET VOLUME 12.3 fl (7.0-11.0); MONO # 1.4 (0.1-0.6); MONO % 7.6 % (1.0-6.0); PLATELET COUNT 392 10^3/uL (120.0-450.0); RED CELL DISTRIBUTION WIDTH 19.1 % (11.5-14.5); WHITE BLOOD COUNT 18.4 10^3/ul (4.5-11.0)
[2016-06-09] MEDS: Albuterol-Ipratrop 3 mg / 0.5 (3 ml) UD IH SCH ×3 (07:01→20:00)
[2016-06-09 07:28] LABS: ALB/GLOB RATIO 0.6 (1.1-1.8); ALKALINE PHOSPHATASE 120 U/L (38-133); ALT/SGPT 44 U/L (7-56); AST/SGOT 52 U/L (15-59); BILIRUBIN,TOTAL 1.3 mg/dL (0.2-1.3); BLOOD UREA NITROGEN 18 mg/dL (7-21); CALCIUM 7.1 mg/dL (8.4-10.5); CARBON DIOXIDE 32 mmol/L (21-33); CHLORIDE 105 mmol/L (98-107); GFR AFRICAN-AMERICAN > 60; GLUCOSE,RANDOM 97 mg/dL (70-110); PHOSPHOROUS 2.3 mg/dL (2.5-4.5); POTASSIUM 3.7 mmol/L (3.6-5.0); SODIUM 142 mmol/L (132-148); TOTAL PROTEIN 4.5 g/dL (5.8-8.3)
[2016-06-09] MEDS: Insulin Lispro (humaLOG) MEDIUM Coverage SC SCH ×4 (07:40→22:11)
--- NOTE | 2016-06-09 07:58 | CP.CCUPN ---
<Roger Britton - Last Filed: 06/09/16 10:47> CCU Subjective - Physician Review Subjective (Free Text): Pt s&e w ICU attending. Pt is on sedation and on vent. Vent changed to pressure control 60% 03/08 14. On tube feed. watery bilious BM. No blood. Pt is spontaneaously opening eyes. Doesn't response to pain stimuli, doesn't follow commands. 06/09/16 10:47 CCU Objective - Vital Signs / Intake & Output Vital Signs (Last 4 hours): Vital Signs Temp Pulse Resp BP Pulse Ox 06/09/16 07:51 98.1 F 06/09/16 07:21 79 29 H 95/51 L 95 06/09/16 07:06 28 H 96 06/09/16 06:00 86 95/51 L 95 06/09/16 05:54 78 96 06/09/16 05:53 77 96 06/09/16 05:00 81 92/38 L 95 06/09/16 04:45 81 99/47 L 95 06/09/16 04:35 85 92 L 06/09/16 04:29 87 91 L 06/09/16 04:26 89 90 L 06/09/16 04:04 95 H 93 L 06/09/16 04:03 81 96/50 L 91 L 06/09/16 04:00 98.8 F 82 79/39 L 92 L Intake and Output (Last 8hrs): Intake & Output 06/08/16 06/09/16 06/09/16 22:59 06:59 14:59 Intake Total 600 650 Output Total 700 750 Balance -100 -100 Intake: IV 600 650 Right Internal Jugular 600 650 Oral 0 0 Tube Feeding 0 TPN/PPN 0 Output: Gastric Amount 0 Stomach 0 Urine 700 750 2-way Urethral 700 750 Emesis 0 Other: Voiding Method Indwelling Catheter # Bowel Movements 50 100 - Physical Exam Head: Positive for: Atraumatic, Normocephalic. Negative for: Ecchymosis Pupils: Positive for: PERRL Extroacular Muscles: Positive for: EOMI Conjunctiva: Negative for: Injected, Icteric Mouth: Positive for: Moist Mucous Membranes Pharnyx: Positive for: Normal. Negative for: ERYTHEMA Nose (Internal): Positive for: Normal Inspection, No Active Bleeding Neck: Positive for: Normal Range of Motion Respiratory/Chest: Positive for: Respiratory Distress, Other (tracheostomy ). Negative for: Tachypneic Cardiovascular: Positive for: Regular Rate and Rhythm, Normal S1, S2 Abdomen: Positive for: Normal Bowel Sounds, Hernias, Other (Incision C/D/I). Negative for: Tenderness, Distention, Peritoneal Signs, Rebound, Guarding Rectal: Positive for: Other (Rectal tube) Genitourinary Male: Positive for: Testicle Tenderness, Hernias, Testicle Swelling, Other (Large [id number] R inguinal hernia: irreducible. 10x5cm L inguinal hernia : irreducible.Gleason 1L /24hrs). Negative for: Normal External Genitalia Upper Extremity: Positive for: Edema, Swelling. Negative for: Erythema Lower Extremity: Positive for: Edema, Swelling. Negative for: Cyanosis Neurological: Positive for: Other (no withdrawl from pain ) Skin: Positive for: Warm, Dry Psychiatric: Negative for: Alert, Oriented x 3, Normal Insight - Medications Active Medications: Active Medications Generic Name Dose Route Start Last Admin Trade Name Freq PRN Reason Stop Dose Admin Albuterol/Ipratropium 3 ml 05/30/16 14:00 06/09/16 07:01 Duoneb 3 Mg/0.5 Mg (3 Ml) Ud IH 3 ml [id number] SHARIF Administration Heparin Sodium (Porcine) 5,000 units 06/08/16 22:00 06/08/16 22:10 Heparin SC 5,000 units Q12 SHARIF Administration Protocol Metronidazole 100 mls @ 100 mls/hr 05/24/16 08:15 06/09/16 05:10 Flagyl IVPB 100 mls/hr Q8 SHARIF Administration Protocol Vancomycin HCl 1 gm/ Dextrose 250 mls @ 166.667 mls/hr 06/02/16 22:00 06/08/16 22:06 IVPB 166.667 mls/hr Q12 SHARIF Administration Dexmedetomidine HCl 100 mls @ 3.645 mls/hr 06/02/16 14:15 06/09/16 03:41 Precedex 4 Mcg/Ml (100 Ml) IV 0.6 mcg/kg/hr .Q24H PRN Titration Agitation Protocol 0.2 MCG/KG/HR MEROPENEM-0.9% SODIUM CHLORIDE 100 mls @ 100 mls/hr 06/06/16 09:08 06/09/16 05: 10 Meropenem 1g/Ns 100ml Ivpb IVPB 100 mls/hr Q8 SHARIF Administration Protocol Insulin Human Lispro 0 units 05/31/16 22:00 06/09/16 07:40 Humalog Med SC Not Given ACHS SHARIF Protocol Morphine Sulfate 4 mg 06/08/16 13:49 06/09/16 03:29 Morphine IVP 4 mg Q4H PRN Administration Pain, moderate (4-7) Pantoprazole Sodium 40 mg 06/01/16 10:00 06/08/16 22:11 Protonix Inj IVP 40 mg Q12 SHARIF Administration Vitamin A 1 ea 06/07/16 16:02 06/08/16 09:07 Vitamin A & D Oint Ud Foilpak TOP 1 ea Q12H PRN Administration Apply to dry lips - Patient Studies Lab Studies: Lab Studies 06/09/16 06/09/16 06/08/16 Range/Units 06:00 05:20 21:56 WBC 18.4 H (4.5-11.0) 10^3/ul RBC 3.07 L (3.5-6.1) 10^6/uL Hgb 8.7 L (14.0-18.0) gm/dL Hct 28.4 L (42.0-52.0) % MCV 92.5 (80.0-105.0) fL MCH 28.3 (25.0-35.0) pg MCHC 30.6 L (31.0-37.0) g/dl RDW 19.1 H (11.5-14.5) % Plt Count 392 (120.0-450.0) 10^3/uL MPV 12.3 H (7.0-11.0) fl Gran % 89.3 H (50.0-68.0) % Lymph % (Auto) 2.7 L (22.0-35.0) % Brooks % (Auto) 7.6 H (1.0-6.0) % Eos % (Auto) 0.3 L (1.5-5.0) % Baso % (Auto) 0.1 (0.0-3.0) % Gran # 16.41 H (1.4-6.5) Lymph # 0.5 L (1.2-3.4) Brooks # 1.4 H (0.1-0.6) Eos # 0.1 (0.0-0.7) Baso # 0.01 (0.0-2.0) K/mm3 PT (9.9-11.8) Seconds INR (0.93-1.08) APTT (23.7-30.8) Seconds pCO2 54 H (35-45) mm/Hg pO2 69.0 L (80-100) mm/Hg HCO3 35.0 H (21-28) mmol/L ABG pH 7.42 (7.35-7.45) ABG Total CO2 36.7 H (22-28) mmol.L ABG O2 Saturation 95.7 (95-98) % ABG O2 Content 18.0 (15-23) ML/dl ABG Base Excess 8.7 H (-2.0-3.0) mmol/L ABG Hemoglobin 13.8 (11.7-17.4) g/dL ABG Carboxyhemoglobin 2.3 H (0.5-1.5) % POC ABG HHb (Measured) 4.2 (0-5) % ABG Methemoglobin 0.7 (0.0-3.0) % ABG O2 Capacity 18.8 (16-24) mL/dl Hgb O2 Saturation 92.9 L (95.0-98.0) % FiO2 60.0 % Sodium 142 (132-148) mmol/L Potassium 3.7 (3.6-5.0) mmol/L Chloride 105 (98-107) mmol/L Carbon Dioxide 32 (21-33) mmol/L Anion Gap 9 L (10-20) BUN 18 (7-21) mg/dL Creatinine 0.6 (0.5-1.4) mg/dL Est GFR ( Amer) > 60 Est GFR (Non-Af Amer) > 60 POC Glucose (mg/dL) 86 (65-110) mg/dL Random Glucose 97 (70-110) mg/dL Calcium 7.1 L (8.4-10.5) mg/dL Phosphorus 2.3 L (2.5-4.5) mg/dL Magnesium 2.0 (1.7-2.2) mg/dL Total Bilirubin 1.3 (0.2-1.3) mg/dL AST 52 (15-59) U/L ALT 44 (7-56) U/L Alkaline Phosphatase 120 (38-133) U/L Total Protein 4.5 L (5.8-8.3) g/dL Albumin 1.7 L (3.0-4.8) g/dL Globulin 2.9 gm/dL Albumin/Globulin Ratio 0.6 L (1.1-1.8) Blood Type Antibody Screen Crossmatch BBK History Checked 06/08/16 06/07/16 Range/Units 08:18 20:40 WBC (4.5-11.0) 10^3/ul RBC (3.5-6.1) 10^6/uL Hgb (14.0-18.0) gm/dL Hct (42.0-52.0) % MCV (80.0-105.0) fL MCH (25.0-35.0) pg MCHC (31.0-37.0) g/dl RDW (11.5-14.5) % Plt Count (120.0-450.0) 10^3/uL MPV (7.0-11.0) fl Gran % (50.0-68.0) % Lymph % (Auto) (22.0-35.0) % Brooks % (Auto) (1.0-6.0) % Eos % (Auto) (1.5-5.0) % Baso % (Auto) (0.0-3.0) % Gran # (1.4-6.5) Lymph # (1.2-3.4) Brooks # (0.1-0.6) Eos # (0.0-0.7) Baso # (0.0-2.0) K/mm3 PT 15.4 H (9.9-11.8) Seconds INR 1.43 H (0.93-1.08) APTT 31.8 H (23.7-30.8) Seconds pCO2 (35-45) mm/Hg pO2 (80-100) mm/Hg HCO3 (21-28) mmol/L ABG pH (7.35-7.45) ABG Total CO2 (22-28) mmol.L ABG O2 Saturation (95-98) % ABG O2 Content (15-23) ML/dl ABG Base Excess (-2.0-3.0) mmol/L ABG Hemoglobin (11.7-17.4) g/dL ABG Carboxyhemoglobin (0.5-1.5) % POC ABG HHb (Measured) (0-5) % ABG Methemoglobin (0.0-3.0) % ABG O2 Capacity (16-24) mL/dl Hgb O2 Saturation (95.0-98.0) % FiO2 % Sodium (132-148) mmol/L Potassium (3.6-5.0) mmol/L Chloride (98-107) mmol/L Carbon Dioxide (21-33) mmol/L Anion Gap (10-20) BUN (7-21) mg/dL Creatinine (0.5-1.4) mg/dL Est GFR ( Amer) Est GFR (Non-Af Amer) POC Glucose (mg/dL) (65-110) mg/dL Random Glucose (70-110) mg/dL Calcium (8.4-10.5) mg/dL Phosphorus (2.5-4.5) mg/dL Magnesium (1.7-2.2) mg/dL Total Bilirubin (0.2-1.3) mg/dL AST (15-59) U/L ALT (7-56) U/L Alkaline Phosphatase (38-133) U/L Total Protein (5.8-8.3) g/dL Albumin (3.0-4.8) g/dL Globulin gm/dL Albumin/Globulin Ratio (1.1-1.8) Blood Type O POSITIVE Antibody Screen Negative Crossmatch See Detail BBK History Checked Patient has bt Laboratory Results - last 24 hr 06/07/16 06/08/16 06/08/16 20:40 08:18 21:56 WBC RBC Hgb Hct MCV MCH MCHC RDW Plt Count MPV Gran % Lymph % (Auto) Brooks % (Auto) Eos % (Auto) Baso % (Auto) Gran # Lymph # Brooks # Eos # Baso # PT 15.4 H INR 1.43 H APTT 31.8 H pCO2 pO2 HCO3 ABG pH ABG Total CO2 ABG O2 Saturation ABG O2 Content ABG Base Excess ABG Hemoglobin ABG Carboxyhemoglobin POC ABG HHb (Measured) ABG Methemoglobin ABG O2 Capacity Hgb O2 Saturation FiO2 Sodium Potassium Chloride Carbon Dioxide Anion Gap BUN Creatinine Est GFR ( Amer) Est GFR (Non-Af Amer) POC Glucose (mg/dL) 86 Random Glucose Calcium Phosphorus Magnesium Total Bilirubin AST ALT Alkaline Phosphatase Total Protein Albumin Globulin Albumin/Globulin Ratio Blood Type O POSITIVE Antibody Screen Negative Crossmatch See Detail BBK History Checked Patient has bt 06/09/16 06/09/16 05:20 06:00 WBC 18.4 H RBC 3.07 L Hgb 8.7 L Hct 28.4 L MCV 92.5 MCH 28.3 MCHC 30.6 L RDW 19.1 H Plt Count 392 MPV 12.3 H Gran % 89.3 H Lymph % (Auto) 2.7 L Brooks % (Auto) 7.6 H Eos % (Auto) 0.3 L Baso % (Auto) 0.1 Gran # 16.41 H Lymph # 0.5 L Brooks # 1.4 H Eos # 0.1 Baso # 0.01 PT INR APTT pCO2 54 H pO2 69.0 L HCO3 35.0 H ABG pH 7.42 ABG Total CO2 36.7 H ABG O2 Saturation 95.7 ABG O2 Content 18.0 ABG Base Excess 8.7 H ABG Hemoglobin 13.8 ABG Carboxyhemoglobin 2.3 H POC ABG HHb (Measured) 4.2 ABG Methemoglobin 0.7 ABG O2 Capacity 18.8 Hgb O2 Saturation 92.9 L FiO2 60.0 Sodium 142 Potassium 3.7 Chloride 105 Carbon Dioxide 32 Anion Gap 9 L BUN 18 Creatinine 0.6 Est GFR ( Amer) > 60 Est GFR (Non-Af Amer) > 60 POC Glucose (mg/dL) Random Glucose 97 Calcium 7.1 L Phosphorus 2.3 L Magnesium 2.0 Total Bilirubin 1.3 AST 52 ALT 44 Alkaline Phosphatase 120 Total Protein 4.5 L Albumin 1.7 L Globulin 2.9 Albumin/Globulin Ratio 0.6 L Blood Type Antibody Screen Crossmatch BBK History Checked Fingerstick Blood Sugar Results: 99 Review of Systems - Review of Systems Systems not reviewed;Unavailable: Respiratory Distress Critical Care Progress Note - Ventilator Checklist Head of Bed 30 Degrees: Yes - Nutrition Nutrition: Nutrition Category Date Time Status NPO past midnight [NPO Diet] [DIET] Diets 06/07/16 Lunch Ordered Assessment/Plan - Assessment and Plan (Free Text) Assessment: The patient is a 66 year old man with a history of developmental delay, iron deficiency anemia, and degenerative arthritis who was admitted [place] [facility] [place] with bilateral, non-reducible inguinal hernias and a CT-scan showing a large cecal mass, concerning for malignancy. As a result, he underwent an exploratory laparotomy and right hemicolectomy (with pathology of cecal mass still pending) . Because of the hemicolectomy, and the large size of the patients bilateral inguinal hernias could not be repaired during the procedure. Post-operatively, the patient developed marked leukocytosis which is being treated with IV Merrem , vanco and Flagyl by ID consult. The CT scan shows an incarcerated right hernia sac with secondary small bowel obstruction, which general surgery manually reduced but reccuring. The bleeding scan shows active bleeding most likely from the sigmoid colon. Bleeding resolved. Pt intubated. Hypoxic respiratory failure ventilator dependent 2/2 aspiration pneumonia and ARDS Toxic metabolic encephalopathy Hemorrhagic shock 2/2 GI bleed: resolved. off pressors POD1 s/p Trach and gastrostomy tube Neuro: Improved responsiveness AAO x0 Mental Retardation Maintain normothermia EEG: Severe bihemispheric cerebral dysfunction CT: Old ischemia -Morphine PRN -off sedation: Precedex Neuro following CV: Hemodynamically stable: Off pressors Maintain MAP >65 Pulm: Able to withstand PS sbt trial x 90 minutes. CXR : b/l infiltration Maintain Sp02>90 Plateau pressure <30 PaO2 >55% ABX per ID Duoneb Wean vent GI: Colon CA: S/P R nimo for SBO and cecal mass: Path-Invasive adenoCA of colon 4x5cm T3N0 Bloody BM: resolved, billious diarrhea now. Tube feed w OGT: Fold tube feed after midnight Protonix IV 40mg ok to resume PO meds hepatin sub Q Tube feed: [facility] on board Heme: 6 PRBC given WBC 18 today trending down Transfuse if Hgb <8 Heme/Onc consult for Colon CA persistent leukocytosis Renal/: Urine output 1.5L /24hrs. Cr 0.5 Hernia recurrent bilaterally Continue to monitor electrolytes will replace/replete as needed Maintain euvolemia ID: Urine cx 05/16 : Proteus sensitive for cefetpime and Cipro, Sputum cx: Yeast Leukocystosis 18 today. Vanc/Merrem ID on board Endo: Accucheck q2 Maintain euglycemia GI ppx: PTX DVT ppx: SCDs Disposition: Likely LTAC. Contact family for possible DNR Case seen, reviewed and discussed with attending <Albert Mojica - Last Filed: 06/09/16 11:17> CCU Objective - Vital Signs / Intake & Output Vital Signs (Last 4 hours): Vital Signs Temp Pulse Resp BP Pulse Ox 06/09/16 10:00 136/68 06/09/16 09:59 102 H 96 06/09/16 09:01 92 H 137/52 L 98 06/09/16 09:00 108 H 06/09/16 08:00 73 96/54 L 97 06/09/16 07:51 98.1 F 06/09/16 07:31 75 98/68 L 97 06/09/16 07:29 77 84/55 L 95 06/09/16 07:21 79 29 H 95/51 L 95 Intake and Output (Last 8hrs): Intake & Output 06/08/16 06/09/16 06/09/16 22:59 06:59 14:59 Intake Total 600 650 Output Total 700 750 Balance -100 -100 Intake: IV 600 650 Right Internal Jugular 600 650 Oral 0 0 Tube Feeding 0 TPN/PPN 0 Output: Gastric Amount 0 Stomach 0 Urine 700 750 2-way Urethral 700 750 Emesis 0 Other: Voiding Method Indwelling Catheter # Bowel Movements 50 100 - Medications Active Medications: Active Medications Generic Name Dose Route Start Last Admin Trade Name Lenq PRN Reason Stop Dose Admin Albuterol/Ipratropium 3 ml 05/30/16 14:00 06/09/16 07:01 Duoneb 3 Mg/0.5 Mg (3 Ml) Ud IH 3 ml [id number] SHARIF Administration Ascorbic Acid 500 mg 06/09/16 10:30 Vitamin C Liq PO DAILY SHARIF Heparin Sodium (Porcine) 5,000 units 06/08/16 22:00 06/09/16 09:33 Heparin SC 5,000 units Q12 SHARIF Administration Protocol Metronidazole 100 mls @ 100 mls/hr 05/24/16 08:15 06/09/16 05:10 Flagyl IVPB 100 mls/hr Q8 SHARIF Administration Protocol Vancomycin HCl 1 gm/ Dextrose 250 mls @ 166.667 mls/hr 06/02/16 22:00 06/08/16 22:06 IVPB 166.667 mls/hr Q12 SHARIF Administration MEROPENEM-0.9% SODIUM CHLORIDE 100 mls @ 100 mls/hr 06/06/16 09:08 06/09/16 05: 10 Meropenem 1g/Ns 100ml Ivpb IVPB 100 mls/hr Q8 SHARIF Administration Protocol Potassium Phosphate 15 mmole/ 255 mls @ 42.5 mls/hr 06/09/16 10:56 Sodium Chloride IVPB 06/09/16 16:55 ONCE ONE Insulin Human Lispro 0 units 05/31/16 22:00 06/09/16 07:40 Humalog Med SC Not Given ACHS SHARIF Protocol Morphine Sulfate 4 mg 06/08/16 13:49 06/09/16 03:29 Morphine IVP 4 mg Q4H PRN Administration Pain, moderate (4-7) Pantoprazole Sodium 40 mg 06/01/16 10:00 06/09/16 09:33 Protonix Inj IVP 40 mg Q12 SHARIF Administration Vitamin A 1 ea 06/07/16 16:02 06/08/16 09:07 Vitamin A & D Oint Ud Foilpak TOP 1 ea Q12H PRN Administration Apply to dry lips - Patient Studies Lab Studies: Lab Studies 06/09/16 06/09/16 06/09/16 Range/Units 11:09 07:26 06:00 WBC 18.4 H (4.5-11.0) 10^3/ul RBC 3.07 L (3.5-6.1) 10^6/uL Hgb 8.7 L (14.0-18.0) gm/dL Hct 28.4 L (42.0-52.0) % MCV 92.5 (80.0-105.0) fL MCH 28.3 (25.0-35.0) pg MCHC 30.6 L (31.0-37.0) g/dl RDW 19.1 H (11.5-14.5) % Plt Count 392 (120.0-450.0) 10^3/uL MPV 12.3 H (7.0-11.0) fl Gran % 89.3 H (50.0-68.0) % Lymph % (Auto) 2.7 L (22.0-35.0) % Brooks % (Auto) 7.6 H (1.0-6.0) % Eos % (Auto) 0.3 L (1.5-5.0) % Baso % (Auto) 0.1 (0.0-3.0) % Gran # 16.41 H (1.4-6.5) Lymph # 0.5 L (1.2-3.4) Brooks # 1.4 H (0.1-0.6) Eos # 0.1 (0.0-0.7) Baso # 0.01 (0.0-2.0) K/mm3 pCO2 (35-45) mm/Hg pO2 (80-100) mm/Hg HCO3 (21-28) mmol/L ABG pH (7.35-7.45) ABG Total CO2 (22-28) mmol.L ABG O2 Saturation (95-98) % ABG O2 Content (15-23) ML/dl ABG Base Excess (-2.0-3.0) mmol/L ABG Hemoglobin (11.7-17.4) g/dL ABG Carboxyhemoglobin (0.5-1.5) % POC ABG HHb (Measured) (0-5) % ABG Methemoglobin (0.0-3.0) % ABG O2 Capacity (16-24) mL/dl Hgb O2 Saturation (95.0-98.0) % FiO2 % Sodium 142 (132-148) mmol/L Potassium 3.7 (3.6-5.0) mmol/L Chloride 105 (98-107) mmol/L Carbon Dioxide 32 (21-33) mmol/L Anion Gap 9 L (10-20) BUN 18 (7-21) mg/dL Creatinine 0.6 (0.5-1.4) mg/dL Est GFR ( Amer) > 60 Est GFR (Non-Af Amer) > 60 POC Glucose (mg/dL) 143 H 99 (65-110) mg/dL Random Glucose 97 (70-110) mg/dL Calcium 7.1 L (8.4-10.5) mg/dL Phosphorus 2.3 L (2.5-4.5) mg/dL Magnesium 2.0 (1.7-2.2) mg/dL Total Bilirubin 1.3 (0.2-1.3) mg/dL AST 52 (15-59) U/L ALT 44 (7-56) U/L Alkaline Phosphatase 120 (38-133) U/L Total Protein 4.5 L (5.8-8.3) g/dL Albumin 1.7 L (3.0-4.8) g/dL Globulin 2.9 gm/dL Albumin/Globulin Ratio 0.6 L (1.1-1.8) 06/09/16 06/08/16 06/08/16 Range/Units 05:20 21:56 16:26 WBC (4.5-11.0) 10^3/ul RBC (3.5-6.1) 10^6/uL Hgb (14.0-18.0) gm/dL Hct (42.0-52.0) % MCV (80.0-105.0) fL MCH (25.0-35.0) pg MCHC (31.0-37.0) g/dl RDW (11.5-14.5) % Plt Count (120.0-450.0) 10^3/uL MPV (7.0-11.0) fl Gran % (50.0-68.0) % Lymph % (Auto) (22.0-35.0) % Brooks % (Auto) (1.0-6.0) % Eos % (Auto) (1.5-5.0) % Baso % (Auto) (0.0-3.0) % Gran # (1.4-6.5) Lymph # (1.2-3.4) Brooks # (0.1-0.6) Eos # (0.0-0.7) Baso # (0.0-2.0) K/mm3 pCO2 54 H (35-45) mm/Hg pO2 69.0 L (80-100) mm/Hg HCO3 35.0 H (21-28) mmol/L ABG pH 7.42 (7.35-7.45) ABG Total CO2 36.7 H (22-28) mmol.L ABG O2 Saturation 95.7 (95-98) % ABG O2 Content 18.0 (15-23) ML/dl ABG Base Excess 8.7 H (-2.0-3.0) mmol/L ABG Hemoglobin 13.8 (11.7-17.4) g/dL ABG Carboxyhemoglobin 2.3 H (0.5-1.5) % POC ABG HHb (Measured) 4.2 (0-5) % ABG Methemoglobin 0.7 (0.0-3.0) % ABG O2 Capacity 18.8 (16-24) mL/dl Hgb O2 Saturation 92.9 L (95.0-98.0) % FiO2 60.0 % Sodium (132-148) mmol/L Potassium (3.6-5.0) mmol/L Chloride (98-107) mmol/L Carbon Dioxide (21-33) mmol/L Anion Gap (10-20) BUN (7-21) mg/dL Creatinine (0.5-1.4) mg/dL Est GFR ( Amer) Est GFR (Non-Af Amer) POC Glucose (mg/dL) 86 176 H (65-110) mg/dL Random Glucose (70-110) mg/dL Calcium (8.4-10.5) mg/dL Phosphorus (2.5-4.5) mg/dL Magnesium (1.7-2.2) mg/dL Total Bilirubin (0.2-1.3) mg/dL AST (15-59) U/L ALT (7-56) U/L Alkaline Phosphatase (38-133) U/L Total Protein (5.8-8.3) g/dL Albumin (3.0-4.8) g/dL Globulin gm/dL Albumin/Globulin Ratio (1.1-1.8) 06/08/16 06/08/16 06/07/16 Range/Units 11:14 07:16 22:05 WBC (4.5-11.0) 10^3/ul RBC (3.5-6.1) 10^6/uL Hgb (14.0-18.0) gm/dL Hct (42.0-52.0) % MCV (80.0-105.0) fL MCH (25.0-35.0) pg MCHC (31.0-37.0) g/dl RDW (11.5-14.5) % Plt Count (120.0-450.0) 10^3/uL MPV (7.0-11.0) fl Gran % (50.0-68.0) % Lymph % (Auto) (22.0-35.0) % Brooks % (Auto) (1.0-6.0) % Eos % (Auto) (1.5-5.0) % Baso % (Auto) (0.0-3.0) % Gran # (1.4-6.5) Lymph # (1.2-3.4) Brooks # (0.1-0.6) Eos # (0.0-0.7) Baso # (0.0-2.0) K/mm3 pCO2 (35-45) mm/Hg pO2 (80-100) mm/Hg HCO3 (21-28) mmol/L ABG pH (7.35-7.45) ABG Total CO2 (22-28) mmol.L ABG O2 Saturation (95-98) % ABG O2 Content (15-23) ML/dl ABG Base Excess (-2.0-3.0) mmol/L ABG Hemoglobin (11.7-17.4) g/dL ABG Carboxyhemoglobin (0.5-1.5) % POC ABG HHb (Measured) (0-5) % ABG Methemoglobin (0.0-3.0) % ABG O2 Capacity (16-24) mL/dl Hgb O2 Saturation (95.0-98.0) % FiO2 % Sodium (132-148) mmol/L Potassium (3.6-5.0) mmol/L Chloride (98-107) mmol/L Carbon Dioxide (21-33) mmol/L Anion Gap (10-20) BUN (7-21) mg/dL Creatinine (0.5-1.4) mg/dL Est GFR ( Amer) Est GFR (Non-Af Amer) POC Glucose (mg/dL) 132 H 97 111 H (65-110) mg/dL Random Glucose (70-110) mg/dL Calcium (8.4-10.5) mg/dL Phosphorus (2.5-4.5) mg/dL Magnesium (1.7-2.2) mg/dL Total Bilirubin (0.2-1.3) mg/dL AST (15-59) U/L ALT (7-56) U/L Alkaline Phosphatase (38-133) U/L Total Protein (5.8-8.3) g/dL Albumin (3.0-4.8) g/dL Globulin gm/dL Albumin/Globulin Ratio (1.1-1.8) Laboratory Results - last 24 hr 06/07/16 06/08/16 06/08/16 22:05 07:16 11:14 WBC RBC Hgb Hct MCV MCH MCHC RDW Plt Count MPV Gran % Lymph % (Auto) Brooks % (Auto) Eos % (Auto) Baso % (Auto) Gran # Lymph # Brooks # Eos # Baso # pCO2 pO2 HCO3 ABG pH ABG Total CO2 ABG O2 Saturation ABG O2 Content ABG Base Excess ABG Hemoglobin ABG Carboxyhemoglobin POC ABG HHb (Measured) ABG Methemoglobin ABG O2 Capacity Hgb O2 Saturation FiO2 Sodium Potassium Chloride Carbon Dioxide Anion Gap BUN Creatinine Est GFR ( Amer) Est GFR (Non-Af Amer) POC Glucose (mg/dL) 111 H 97 132 H Random Glucose Calcium Phosphorus Magnesium Total Bilirubin AST ALT Alkaline Phosphatase Total Protein Albumin Globulin Albumin/Globulin Ratio 06/08/16 06/08/16 06/09/16 16:26 21:56 05:20 WBC RBC Hgb Hct MCV MCH MCHC RDW Plt Count MPV Gran % Lymph % (Auto) Brooks % (Auto) Eos % (Auto) Baso % (Auto) Gran # Lymph # Brooks # Eos # Baso # pCO2 54 H pO2 69.0 L HCO3 35.0 H ABG pH 7.42 ABG Total CO2 36.7 H ABG O2 Saturation 95.7 ABG O2 Content 18.0 ABG Base Excess 8.7 H ABG Hemoglobin 13.8 ABG Carboxyhemoglobin 2.3 H POC ABG HHb (Measured) 4.2 ABG Methemoglobin 0.7 ABG O2 Capacity 18.8 Hgb O2 Saturation 92.9 L FiO2 60.0 Sodium Potassium Chloride Carbon Dioxide Anion Gap BUN Creatinine Est GFR ( Amer) Est GFR (Non-Af Amer) POC Glucose (mg/dL) 176 H 86 Random Glucose Calcium Phosphorus Magnesium Total Bilirubin AST ALT Alkaline Phosphatase Total Protein Albumin Globulin Albumin/Globulin Ratio 06/09/16 06/09/16 06/09/16 06:00 07:26 11:09 WBC 18.4 H RBC 3.07 L Hgb 8.7 L Hct 28.4 L MCV 92.5 MCH 28.3 MCHC 30.6 L RDW 19.1 H Plt Count 392 MPV 12.3 H Gran % 89.3 H Lymph % (Auto) 2.7 L Brooks % (Auto) 7.6 H Eos % (Auto) 0.3 L Baso % (Auto) 0.1 Gran # 16.41 H Lymph # 0.5 L Brooks # 1.4 H Eos # 0.1 Baso # 0.01 pCO2 pO2 HCO3 ABG pH ABG Total CO2 ABG O2 Saturation ABG O2 Content ABG Base Excess ABG Hemoglobin ABG Carboxyhemoglobin POC ABG HHb (Measured) ABG Methemoglobin ABG O2 Capacity Hgb O2 Saturation FiO2 Sodium 142 Potassium 3.7 Chloride 105 Carbon Dioxide 32 Anion Gap 9 L BUN 18 Creatinine 0.6 Est GFR ( Amer) > 60 Est GFR (Non-Af Amer) > 60 POC Glucose (mg/dL) 99 143 H Random Glucose 97 Calcium 7.1 L Phosphorus 2.3 L Magnesium 2.0 Total Bilirubin 1.3 AST 52 ALT 44 Alkaline Phosphatase 120 Total Protein 4.5 L Albumin 1.7 L Globulin 2.9 Albumin/Globulin Ratio 0.6 L Attending/Attestation - Attestation I have personally seen and examined this patient.: Yes I have fully participated in the care of the patient.: Yes I have reviewed all pertinent clinical information: Yes Notes (Text): 06/09/16 11:15 The patient was seen and examined at the bedside. Patient care was discussed with resident Medical records, lab studies, and imaging were reviewed and management issues were discussed and formulated. Last 24H events reviewed. Agree with above treatment plans as outlined in 's note with addition of the following: -hemodynamic monitoring to maintain MAP>65 -mechanical ventilation and o2 supplementation to maintain Spo2 >90 Pao2>60 -monitor for TV 6ml\kg IBW and plateau pressure <30 -ABG in AM reviewed -vent mode changed to Pressure control 18\5 to alleviate air hunger -continue broad spectrum Abx as per ID team ; f\u cultures and levels -f\u Bun\Cr and U\o -monitor and replace e-lites -d\c precedex -neurology team f\u -tube feeds and aspiration precautions -surgical team f\u -DVT \ PUD prophylaxis CCM f\u 35min
--- NOTE | 2016-06-09 09:15 | CP.PCM.PN ---
Subjective - Date & Time of Evaluation Date of Evaluation: 06/09/16 Time of Evaluation: 09:12 - Subjective Subjective: Surgery: Dr. Peterson Pt seen and examined. Per nursing no acute events overnight. Pt remains intubated. Unresponsive. Objective - Vital Signs/Intake and Output Vital Signs (last 24 hours): Temp Pulse Resp BP Pulse Ox 98.1 F 79 29 H 95/51 L 95 06/09/16 07:51 06/09/16 07:21 06/09/16 07:21 06/09/16 07:21 06/09/16 07:21 Intake and Output: 06/09/16 06/09/16 06:59 18:59 Intake Total 650 Output Total 750 Balance -100 - Medications Medications: Current Medications Albuterol/Ipratropium (Duoneb 3 Mg/0.5 Mg (3 Ml) Ud) 3 ml IH [id number] [facility] Last Admin: 06/09/16 07:01 Dose: 3 ml Heparin Sodium (Porcine) (Heparin) 5,000 units SC Q12 SHARIF PRN Reason: Protocol Last Admin: 06/08/16 22:10 Dose: 5,000 units Metronidazole (Flagyl) 100 mls @ 100 mls/hr IVPB Q8 SHARIF PRN Reason: Protocol Last Admin: 06/09/16 05:10 Dose: 100 mls/hr Vancomycin HCl 1 gm/ Dextrose 250 mls @ 166.667 mls/hr IVPB Q12 [facility] Last Admin: 06/08/16 22:06 Dose: 166.667 mls/hr Dexmedetomidine HCl (Precedex 4 Mcg/Ml (100 Ml)) 100 mls @ 3.645 mls/hr IV .Q24H PRN; Protocol; 0.2 MCG/KG/HR PRN Reason: Agitation Last Titration: 06/09/16 03:41 Dose: 0.6 mcg/kg/hr MEROPENEM-0.9% SODIUM CHLORIDE (Meropenem 1g/Ns 100ml Ivpb) 100 mls @ 100 mls/ hr IVPB Q8 SHARIF PRN Reason: Protocol Last Admin: 06/09/16 05:10 Dose: 100 mls/hr Insulin Human Lispro (Humalog Med) 0 units SC ACHS SHARIF PRN Reason: Protocol Last Admin: 06/09/16 07:40 Dose: Not Given Morphine Sulfate (Morphine) 4 mg IVP Q4H PRN PRN Reason: Pain, moderate (4-7) Last Admin: 06/09/16 03:29 Dose: 4 mg Pantoprazole Sodium (Protonix Inj) 40 mg IVP Q12 SHARIF Last Admin: 06/08/16 22:11 Dose: 40 mg Vitamin A (Vitamin A & D Oint Ud Foilpak) 1 ea TOP Q12H PRN PRN Reason: Apply to dry lips Last Admin: 06/08/16 09:07 Dose: 1 ea - Labs Labs: 06/09/16 06:00 06/09/16 06:00 PT 15.4 Seconds (9.9-11.8) H 06/08/16 08:18 INR 1.43 (0.93-1.08) H 06/08/16 08:18 APTT 31.8 Seconds (23.7-30.8) H 06/08/16 08:18 - Constitutional Appears: Non-toxic, No Acute Distress - Head Exam Head Exam: ATRAUMATIC, NORMOCEPHALIC - ENT Exam ENT Exam: Mucous Membranes Dry - Neck Exam Additional comments: s/p trach, no hematoma - Respiratory Exam Additional comments: intubated - GI/Abdominal Exam GI & Abdominal Exam: Soft. absent: Distended, Firm, Guarding, Rigid, Tenderness , Rebound Additional comments: gastrostomy tube in place, midline incision C/D/I, large B/L inguinal hernias - Neurological Exam Neurological Exam: absent: Alert, Awake Assessment and Plan - Assessment and Plan (Free Text) Assessment: 86M w. cecal mass, s/p ex-lap w. R hemicolectomy, POD#17, w. respiratory failure , s/p open trach and gastrostomy POD#1 -Path: adenocarcinoma -Post-op bleed likely at anastomosis site, resolved -Ok to use gastrostomy for tube feeds -trach, will remove dressing POD#2 and will remove sutures POD#10 -c/w current medical management -d/w attending Mily PGY2
[2016-06-09] MEDS: Vancomycin 1 GM in Dextrose 5% In Water 250 ML IVPB SCH ×2 (10:00→22:50)
--- NOTE | 2016-06-09 10:19 | RAD ---
PROCEDURE: Portable chest. HISTORY: intubated COMPARISON: Multiple serial examinations preceding the most recent study: June 08, 2016. TECHNIQUE: Technique: Single view portable semi erect @ 05:23. FINDINGS: Satisfactory position of venous access catheter, tracheostomy device. Stable multifocal infiltrates. Stable left pleural effusion. IMPRESSION: No significant interval change compared to the prior examination(s).
[2016-06-09] MEDS ORDERED: Phytonadione 10 MG in Sodium Chloride 0.9% 50 ML IV ONE (10:26)
[2016-06-09] MEDS ORDERED: Ascorbic Acid 500 mg/5 ml Liq(50 ml) PO SCH (10:30)
[2016-06-09] MEDS ORDERED: Potassium Phosphate 15 MMOLE in Sodium Chloride 0.9% 250 ML IVPB ONE (10:56)
--- NOTE | 2016-06-09 16:48 | CP.PCM.PN ---
Subjective - Date & Time of Evaluation Date of Evaluation: 06/09/16 Time of Evaluation: 15:30 - Subjective Subjective: Infectious Disease Follow Up: June 09, 2016 85 yo male with initial presentation for abdominal pain and abnormal CT scan sent from [facility] facility (I think [facility]). 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 Currently the patient appears comfortable. He is unable to give any relevant information due to a severe developmental delay. Patient has been displaying increased leukocytosis since the surgery. Patient himself is intubated and ventilated. At best, he open his eyes spontaneously but make no meaningful interactions. 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 He has been in the MICU for over 2 weeks. He remains intubated and ventilated. The patient received tracheotomy and PEG placement. Patient has an extremely poor prognosis. There has been no improvement of the patient's mental status over the past few days. The patient has been essentially non-responsive. Still very high leukocytosis. Multiple potential reasons for increased leukocytosis including high dose steroids. On the whole, the patient is afebrile and improving respiratory sigala. Mentally no improvement at all. Currently off pressors. Poorly responsive. Very poor prognosis. Remains intubated and ventilated. Attempts to wean off ventilator. Mentally, no improvement. No family available. Occasionally open eyes but no meaningful interaction. Objective - Vital Signs/Intake and Output Vital Signs (last 24 hours): Temp Pulse Resp BP Pulse Ox 99.7 F H 103 H 30 H 142/64 96 06/09/16 15:49 06/09/16 15:49 06/09/16 15:49 06/09/16 15:49 06/09/16 15:49 Intake and Output: 06/09/16 06/09/16 06:59 18:59 Intake Total 650 Output Total 750 200 Balance -100 -200 - Medications Medications: Current Medications Albuterol/Ipratropium (Duoneb 3 Mg/0.5 Mg (3 Ml) Ud) 3 ml IH [id number] [facility] Last Admin: 06/09/16 13:03 Dose: 3 ml Heparin Sodium (Porcine) (Heparin) 5,000 units SC Q12 SHARIF PRN Reason: Protocol Last Admin: 06/09/16 09:33 Dose: 5,000 units Metronidazole (Flagyl) 100 mls @ 100 mls/hr IVPB Q8 SHARIF PRN Reason: Protocol Last Admin: 06/09/16 14:00 Dose: 100 mls/hr Vancomycin HCl 1 gm/ Dextrose 250 mls @ 166.667 mls/hr IVPB Q12 [facility] Last Admin: 06/09/16 10:00 Dose: 166.667 mls/hr MEROPENEM-0.9% SODIUM CHLORIDE (Meropenem 1g/Ns 100ml Ivpb) 100 mls @ 100 mls/ hr IVPB Q8 SHARIF PRN Reason: Protocol Last Admin: 06/09/16 13:22 Dose: 100 mls/hr Potassium Phosphate 15 mmole/ (Sodium Chloride) 255 mls @ 42.5 mls/hr IVPB ONCE ONE Stop: 06/09/16 16:55 Last Admin: 06/09/16 12:02 Dose: 42.5 mls/hr Insulin Human Lispro (Humalog Med) 0 units SC ACHS SHARIF PRN Reason: Protocol Last Admin: 06/09/16 16:25 Dose: Not Given Morphine Sulfate (Morphine) 4 mg IVP Q4H PRN PRN Reason: Pain, moderate (4-7) Last Admin: 06/09/16 15:58 Dose: 4 mg Pantoprazole Sodium (Protonix Inj) 40 mg IVP Q12 [facility] Last Admin: 06/09/16 09:33 Dose: 40 mg Vitamin A (Vitamin A & D Oint Ud Foilpak) 1 ea TOP Q12H PRN PRN Reason: Apply to dry lips Last Admin: 06/08/16 09:07 Dose: 1 ea - Labs Labs: 06/09/16 06:00 06/09/16 06:00 PT 15.4 Seconds (9.9-11.8) H 06/08/16 08:18 INR 1.43 (0.93-1.08) H 06/08/16 08:18 APTT 31.8 Seconds (23.7-30.8) H 06/08/16 08:18 - Constitutional Appears: Chronically Ill - Head Exam Additional comments: tracheotomy and ventilated. - Eye Exam Eye Exam: EOMI, PERRL - ENT Exam ENT Exam: Mucous Membranes Moist, Normal External Ear Exam, TM's Normal Bilaterally Additional comments: tracheotomy and ventilated. - Neck Exam Additional comments: tracheotomy and ventilated. - Respiratory Exam Respiratory Exam: absent: Rales, Rhonchi, Wheezes Additional comments: tracheotomy and ventilated. - Cardiovascular Exam Cardiovascular Exam: REGULAR RHYTHM, RRR, +S1, +S2 - GI/Abdominal Exam GI & Abdominal Exam: Soft, Normal Bowel Sounds. absent: Distended, Tenderness - Neurological Exam Neurological Exam: absent: Oriented x3 Additional comments: tracheotomy and ventilated. Poorly responsive. spontaneously opens eyes. - Psychiatric Exam Additional comments: tracheotomy and ventilated. Poorly responsive. spontaneously opens eyes. Assessment and Plan - Assessment and Plan (Free Text) Assessment: 85 yo male with cecal mass and bilateral hernia had exploratory laparotomy with right hemicolectomy. The patient is unable to give any significant information when speaking with him. He is not complaining of pain. The patient leukocytosis remains elevated but improved at 18.4. There is a mild left shift to the leukocytosis. Supportive care. Adenocarcinoma in cecal mass pathology. Silva cultures sent. Had Proteus in urine culture over a week ago but more recent urine culture is negative for growth. No growth in recent cultures so far. C. Diff studies negative. Currently on Meropenem and Flagyl for antibiotic coverage. Supportive care. Extremely poor prognosis with care bordering on futility at this point. No improvement in mental status over the past few days. Remains in MICU and required intubation and ventilation. On antibiotics of Vancomycin, Meropenem, and Flagyl currently. Awaiting repeat cultures - negative to date at 5+ days. No further surgical interventions. Possible aspiration pneumonia. Bleed at anastomotic site. Patient is hemodynamically stable. CT when patient stable enough to do so. He is currently off pressors. Repeat Abdominal X-ray shows resolvement of SBO portion of disease. Patient remains critically ill and has an extremely poor prognosis. He remains intubated and ventilated. There are attempts to wean off ventilator. No family available for decision making for the patient. Persistent high leukocytosis. The patient has gone for PEG and trach placement yesterday. Thank you for allowing me to participate in the care of the patient, we will follow with you.
--- NOTE | 2016-06-09 20:09 | PN ---
DATE: 06/09/2016 This 86-year-old male was examined at his bedside. His case was reviewed in detail with his nurse, Orly Knutson. The patient is status post tracheostomy and surgically PEG tube placement, and he is being started on PEG tube feeds with Jevity, and is being suctioned through his tracheostomy. He remains unresponsive. He opens his eyes without purposeful focusing. He remains ventilatory dependent and is currently on 60% FIO2 with 5 of PEEP. He remains hypoxemic. His vital signs show temperature 97.3, pulse 96, blood pressure 136/62, respirations 30. I's and O's: 650 in, 750 out. PHYSICAL EXAMINATION: HEAD: Normocephalic, atraumatic. EYES: No icterus. NECK: Supple. HEART: S1, S2. LUNGS: With rhonchi with wheezing that clears with suctioning. ABDOMEN: Soft. SCROTAL: With bilateral inguinal hernias. VASCULAR: Legs warm to touch. He is wearing antiembolism SCD stockings. SKIN: Without rash. NEUROLOGICAL: Unresponsive to painful stimuli. PSYCHOLOGICAL: No purposeful focusing. LABORATORIES: White count 18,400, hemoglobin 8.7, hematocrit 28.4, platelets 392,000. Blood gas: pH 7.42, pCO2 of 54, pO2 of 69, bicarb 35 on an FiO2 of 60. Sodium 142, K 3.7, chloride 105, bicarb 39, BUN 18, creatinine 0.6. Random blood sugar was 143. Magnesium 2.0, bilirubin 1.3. AST 52, ALT 44, alk phos 120. Chest x-ray shows persistent bilateral infiltrates. 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 PLAN: The patient continues on DuoNeb nebulizer therapy, with suctioning through trach IV Flagyl, IV meropenem, and IV vancomycin under the direction of Dr. Victoria who will determine duration and dosing. The patient has been cleared by surgery to resume subQ heparin for DVT prophylaxis. He continues on insulin coverage a.c. meals and at bedtime. He is on IV Protonix 40 mg IV q. 12. He remains on aspiration precautions, fall precautions, skin precautions, tube feeds, bedside physical therapy. academic services coordinator involved in attempting to locate a vent facility for his ultimate disposition. Overall prognosis is, indeed, guarded and poor. There is no family available to discuss DNR code status, and the patient's previous paperwork had revealed that he wanted Full Code measures which are being respected at this time. Greater than 1 hour was spent in the care, coordination of care, review of care with the nursing, co-consultants, social service regarding this gravely ill patient at present. Codi Pringle MD cc: [id number] TT: 06/09/2016 20:08:49 Confirmation # [id number] Dictation # [id number] MTDD
[2016-06-10] MEDS: Albuterol-Ipratrop 3 mg / 0.5 (3 ml) UD IH SCH ×4 (02:40→20:06)
--- NOTE | 2016-06-10 03:18 | PN ---
DATE: 06/09/2016 SUBJECTIVE: This patient was seen and evaluated earlier, discussed with the nursing staff. The markel ent remains on vent, status post tracheostomy, status post surgical gastrostomy, remains in bed on ve nt. Eyes open and with no focus. PHYSICAL EXAMINATION: VITAL SIGNS: Afebrile, blood pressure 148/58, pulse 92 per minute. HEENT: Atraumatic, anicteric. NECK: Supple. HEART: . LUNGS: Bilateral air entry present. ABDOMEN: Feeding tube present and also surgical scar noted in the abdomen. Scrotal hernia present o n the right side. LABORATORY DATA: WBC count elevated to 18.4, hemoglobin 8.7, BUN 18, creatinine 1.6. IMPRESSION: Sepsis, bilateral lung infiltrate. This 86-year-old patient with status post right hemicolectomy for cecal carcinoma had multiple postop erative complications. The patient did have a small-bowel obstruction secondary to inguinal and scro jane hernia, developed a small constriction, gastrointestinal bleeding, sepsis, possible aspiration pn eumonia. Unable to reach the family yet. RECOMMENDATIONS: 1. Continue the feeding tube. 2. Followup of the hemoglobin and hematocrit. 3. Empiric PPI prophylaxis. 4. Continue antibiotics as per ID. 5. Follow up the hemoglobin and hematocrit. Hemoglobin is 8.7 We will continue to closely follow up his care and suggest further management based on the clinical c ourse. Ann Luna MD cc: [id number] TT: 06/10/2016 03:18:38 Confirmation # [id number] Dictation # [id number] vn
[2016-06-10] MEDS: metroNIDAZOLE IV 500 mg/100 ml 100 ML IVPB SCH ×3 (05:08→21:03)
[2016-06-10 05:31] LABS: HEMATOCRIT 30.2 % (42.0-52.0); MEAN CELL VOLUME 90.7 fL (80.0-105.0); MEAN CORPUSCULAR HEMOGLOBIN 28.8 pg (25.0-35.0); MEAN CORPUSCULAR HGB CONC 31.8 g/dl (31.0-37.0); PLATELET COUNT 460 10^3/uL (120.0-450.0); RED CELL DISTRIBUTION WIDTH 18.9 % (11.5-14.5); WHITE BLOOD COUNT 19.9 10^3/ul (4.5-11.0)
[2016-06-10 05:38] LABS: ADD MANUAL DIFF? YES
[2016-06-10 05:42] LABS: ALB/GLOB RATIO 0.6 (1.1-1.8); ALKALINE PHOSPHATASE 164 U/L (38-133); ALT/SGPT 36 U/L (7-56); AST/SGOT 59 U/L (15-59); BLOOD UREA NITROGEN 17 mg/dL (7-21); CALCIUM 7.3 mg/dL (8.4-10.5); CARBON DIOXIDE 31 mmol/L (21-33); CHLORIDE 106 mmol/L (98-107); GFR AFRICAN-AMERICAN > 60; GLUCOSE,RANDOM 101 mg/dL (70-110); MAGNESIUM 1.9 mg/dL (1.7-2.2); PHOSPHOROUS 1.9 mg/dL (2.5-4.5); POTASSIUM 3.6 mmol/L (3.6-5.0); SODIUM 142 mmol/L (132-148); TOTAL PROTEIN 5.2 g/dL (5.8-8.3)
[2016-06-10] MEDS ORDERED: Potassium Phosphate 15 MMOLE in Sodium Chloride 0.9% 250 ML IVPB ONE ×2 (06:22→07:28)
[2016-06-10] MEDS: Insulin Lispro (humaLOG) MEDIUM Coverage SC SCH ×4 (07:38→22:07)
--- NOTE | 2016-06-10 09:02 | CP.CCUPN ---
CCU Subjective - Physician Review Events Since Last Encounter (Free Text): 06/10/16 08:58 No acute events. S/P tracheostomy and PEG Moving all ext but not following any commands or tracking with eyes. Plans for SBT today p.s 12 Low grade fevers today, CX pending, on ABX CCU Objective - Vital Signs / Intake & Output Vital Signs (Last 4 hours): Vital Signs Temp Pulse Resp BP Pulse Ox 06/10/16 08:07 101.5 F H 122 H 24 106/61 98 06/10/16 08:00 126 H 06/10/16 07:00 117 H 105/61 99 06/10/16 06:00 125 H 106/58 L 99 06/10/16 05:03 118 H 94 L 06/10/16 05:00 119 H 111/39 L 93 L Intake and Output (Last 8hrs): Intake & Output 06/09/16 06/10/16 06/10/16 22:59 06:59 14:59 Intake Total 1150 790 Output Total 600 Balance 1150 190 Intake: IV 550 Right Internal Jugular 550 Tube Feeding 150 240 Other 1000 Output: Urine 500 Urethral (Gleason) 500 Stool 100 Other: Voiding Method Indwelling Catheter Indwelling Catheter # Voids Urethral (Gleason) 400 - Physical Exam Head: Positive for: Atraumatic, Normocephalic. Negative for: Ecchymosis Pupils: Positive for: PERRL Extroacular Muscles: Positive for: EOMI Conjunctiva: Negative for: Injected, Icteric Mouth: Positive for: Moist Mucous Membranes, Dry Pharnyx: Positive for: Normal. Negative for: ERYTHEMA Nose (Internal): Positive for: Normal Inspection, No Active Bleeding Neck: Positive for: Normal Range of Motion (Tracheostomy in place ) Respiratory/Chest: Positive for: Clear to Auscultation, Good Air Exchange, Respiratory Distress, Other (tracheostomy ). Negative for: Tachypneic Cardiovascular: Positive for: Regular Rate and Rhythm, Normal S1, S2 Abdomen: Positive for: Normal Bowel Sounds (post surgical changes ), Hernias, Other (Incision C/D/I). Negative for: Tenderness, Distention, Peritoneal Signs , Rebound, Guarding Rectal: Positive for: Other (Rectal tube) Genitourinary Male: Positive for: Testicle Tenderness, Hernias, Testicle Swelling, Other (Large [id number] R inguinal hernia: irreducible. 10x5cm L inguinal hernia : irreducible.Gleason 1L /24hrs). Negative for: Normal External Genitalia Back: Positive for: Normal Inspection Upper Extremity: Positive for: Normal Inspection, Edema, Swelling. Negative for : Erythema Lower Extremity: Positive for: Normal Inspection, Edema, Swelling. Negative for : Cyanosis Neurological: Positive for: CN II-XII Intact, Other (no withdrawl from pain ) Skin: Positive for: Warm, Dry Psychiatric: Negative for: Alert, Oriented x 3, Normal Insight - Medications Active Medications: Active Medications Generic Name Dose Route Start Last Admin Trade Name Freq PRN Reason Stop Dose Admin Albuterol/Ipratropium 3 ml 05/30/16 14:00 06/10/16 07:23 Duoneb 3 Mg/0.5 Mg (3 Ml) Ud IH 3 ml [id number] SHARIF Administration Heparin Sodium (Porcine) 5,000 units 06/08/16 22:00 06/09/16 21:25 Heparin SC 5,000 units Q12 SHARIF Administration Protocol Metronidazole 100 mls @ 100 mls/hr 05/24/16 08:15 06/10/16 05:08 Flagyl IVPB 100 mls/hr Q8 SHARIF Administration Protocol Vancomycin HCl 1 gm/ Dextrose 250 mls @ 166.667 mls/hr 06/02/16 22:00 06/09/16 22:50 IVPB 166.667 mls/hr Q12 SHARIF Administration MEROPENEM-0.9% SODIUM CHLORIDE 100 mls @ 100 mls/hr 06/06/16 09:08 06/09/16 21: 23 Meropenem 1g/Ns 100ml Ivpb IVPB 100 mls/hr Q8 SHARIF Administration Protocol Potassium Phosphate 15 mmole/ 255 mls @ 42.5 mls/hr 06/10/16 06:22 06/10/16 07: 35 Sodium Chloride IVPB 06/10/16 12:21 42.5 mls/hr ONCE ONE Administration Potassium Phosphate 15 mmole/ 255 mls @ 42.5 mls/hr 06/10/16 07:28 Sodium Chloride IVPB 06/10/16 13:27 ONCE ONE Insulin Human Lispro 0 units 05/31/16 22:00 06/10/16 07:38 Humalog Med SC Not Given ACHS SHARIF Protocol Lorazepam 2 mg 06/09/16 19:05 06/09/16 19:06 Ativan IVP 2 mg Q4H PRN Administration Anxiety Protocol Morphine Sulfate 4 mg 06/08/16 13:49 06/09/16 15:58 Morphine IVP 4 mg Q4H PRN Administration Pain, moderate (4-7) Pantoprazole Sodium 40 mg 06/01/16 10:00 06/09/16 21:25 Protonix Inj IVP 40 mg Q12 SHARIF Administration Vitamin A 1 ea 06/07/16 16:02 06/08/16 09:07 Vitamin A & D Oint Ud Foilpak TOP 1 ea Q12H PRN Administration Apply to dry lips - Patient Studies Lab Studies: Lab Studies 06/10/16 06/09/16 06/09/16 Range/Units 05:15 11:09 07:26 WBC 19.9 H (4.5-11.0) 10^3/ul RBC 3.33 L (3.5-6.1) 10^6/uL Hgb 9.6 L (14.0-18.0) gm/dL Hct 30.2 L (42.0-52.0) % MCV 90.7 (80.0-105.0) fL MCH 28.8 (25.0-35.0) pg MCHC 31.8 (31.0-37.0) g/dl RDW 18.9 H (11.5-14.5) % Plt Count 460 H (120.0-450.0) 10^3/uL MPV 12.0 H (7.0-11.0) fl Sodium 142 (132-148) mmol/L Potassium 3.6 (3.6-5.0) mmol/L Chloride 106 (98-107) mmol/L Carbon Dioxide 31 (21-33) mmol/L Anion Gap 9 L (10-20) BUN 17 (7-21) mg/dL Creatinine 0.5 (0.5-1.4) mg/dL Est GFR ( Amer) > 60 Est GFR (Non-Af Amer) > 60 POC Glucose (mg/dL) 143 H 99 (65-110) mg/dL Random Glucose 101 (70-110) mg/dL Calcium 7.3 L (8.4-10.5) mg/dL Phosphorus 1.9 L (2.5-4.5) mg/dL Magnesium 1.9 (1.7-2.2) mg/dL Total Bilirubin 1.0 (0.2-1.3) mg/dL AST 59 (15-59) U/L ALT 36 (7-56) U/L Alkaline Phosphatase 164 H (38-133) U/L Total Protein 5.2 L (5.8-8.3) g/dL Albumin 2.0 L (3.0-4.8) g/dL Globulin 3.2 gm/dL Albumin/Globulin Ratio 0.6 L (1.1-1.8) 06/08/16 06/08/16 06/08/16 Range/Units 16:26 11:14 07:16 WBC (4.5-11.0) 10^3/ul RBC (3.5-6.1) 10^6/uL Hgb (14.0-18.0) gm/dL Hct (42.0-52.0) % MCV (80.0-105.0) fL MCH (25.0-35.0) pg MCHC (31.0-37.0) g/dl RDW (11.5-14.5) % Plt Count (120.0-450.0) 10^3/uL MPV (7.0-11.0) fl Sodium (132-148) mmol/L Potassium (3.6-5.0) mmol/L Chloride (98-107) mmol/L Carbon Dioxide (21-33) mmol/L Anion Gap (10-20) BUN (7-21) mg/dL Creatinine (0.5-1.4) mg/dL Est GFR ( Amer) Est GFR (Non-Af Amer) POC Glucose (mg/dL) 176 H 132 H 97 (65-110) mg/dL Random Glucose (70-110) mg/dL Calcium (8.4-10.5) mg/dL Phosphorus (2.5-4.5) mg/dL Magnesium (1.7-2.2) mg/dL Total Bilirubin (0.2-1.3) mg/dL AST (15-59) U/L ALT (7-56) U/L Alkaline Phosphatase (38-133) U/L Total Protein (5.8-8.3) g/dL Albumin (3.0-4.8) g/dL Globulin gm/dL Albumin/Globulin Ratio (1.1-1.8) 06/07/16 Range/Units 22:05 WBC (4.5-11.0) 10^3/ul RBC (3.5-6.1) 10^6/uL Hgb (14.0-18.0) gm/dL Hct (42.0-52.0) % MCV (80.0-105.0) fL MCH (25.0-35.0) pg MCHC (31.0-37.0) g/dl RDW (11.5-14.5) % Plt Count (120.0-450.0) 10^3/uL MPV (7.0-11.0) fl Sodium (132-148) mmol/L Potassium (3.6-5.0) mmol/L Chloride (98-107) mmol/L Carbon Dioxide (21-33) mmol/L Anion Gap (10-20) BUN (7-21) mg/dL Creatinine (0.5-1.4) mg/dL Est GFR ( Amer) Est GFR (Non-Af Amer) POC Glucose (mg/dL) 111 H (65-110) mg/dL Random Glucose (70-110) mg/dL Calcium (8.4-10.5) mg/dL Phosphorus (2.5-4.5) mg/dL Magnesium (1.7-2.2) mg/dL Total Bilirubin (0.2-1.3) mg/dL AST (15-59) U/L ALT (7-56) U/L Alkaline Phosphatase (38-133) U/L Total Protein (5.8-8.3) g/dL Albumin (3.0-4.8) g/dL Globulin gm/dL Albumin/Globulin Ratio (1.1-1.8) Laboratory Results - last 24 hr 06/07/16 06/08/16 06/08/16 22:05 07:16 11:14 WBC RBC Hgb Hct MCV MCH MCHC RDW Plt Count MPV Sodium Potassium Chloride Carbon Dioxide Anion Gap BUN Creatinine Est GFR ( Amer) Est GFR (Non-Af Amer) POC Glucose (mg/dL) 111 H 97 132 H Random Glucose Calcium Phosphorus Magnesium Total Bilirubin AST ALT Alkaline Phosphatase Total Protein Albumin Globulin Albumin/Globulin Ratio 06/08/16 06/09/16 06/09/16 16:26 07:26 11:09 WBC RBC Hgb Hct MCV MCH MCHC RDW Plt Count MPV Sodium Potassium Chloride Carbon Dioxide Anion Gap BUN Creatinine Est GFR ( Amer) Est GFR (Non-Af Amer) POC Glucose (mg/dL) 176 H 99 143 H Random Glucose Calcium Phosphorus Magnesium Total Bilirubin AST ALT Alkaline Phosphatase Total Protein Albumin Globulin Albumin/Globulin Ratio 06/10/16 05:15 WBC 19.9 H RBC 3.33 L Hgb 9.6 L Hct 30.2 L MCV 90.7 MCH 28.8 MCHC 31.8 RDW 18.9 H Plt Count 460 H MPV 12.0 H Sodium 142 Potassium 3.6 Chloride 106 Carbon Dioxide 31 Anion Gap 9 L BUN 17 Creatinine 0.5 Est GFR ( Amer) > 60 Est GFR (Non-Af Amer) > 60 POC Glucose (mg/dL) Random Glucose 101 Calcium 7.3 L Phosphorus 1.9 L Magnesium 1.9 Total Bilirubin 1.0 AST 59 ALT 36 Alkaline Phosphatase 164 H Total Protein 5.2 L Albumin 2.0 L Globulin 3.2 Albumin/Globulin Ratio 0.6 L Fingerstick Blood Sugar Results: 95 Review of Systems - Review of Systems Systems not reviewed;Unavailable: Intubated Critical Care Progress Note - Ventilator Checklist Head of Bed 30 Degrees: Yes Daily Sedation Vacation: Yes Daily Assessment of Readiness to Wean: Yes Daily Spontaneous Breathing Trial: Yes PUD Prophalyxis: Yes DVT Prophylaxis: Yes Assessment/Plan - Assessment and Plan (Free Text) Assessment: Resolved ARDS and Septic Shock S/P Tracheostomy and PEg placment Daily SBT trails. currently on PS 12 On BD, Chest PT. On empiric abx w/ Vancomycin and Falgyl, with improvements in WBC. SBP WNL off all Vasopressors. No new cx positive for infection. DVT P w/ Heparin SQ, PPI Feeding continued per Surgery. Awaiting Social work to talk to POA about Placement in [place]. cc time 45 min
[2016-06-10] MEDS: Vancomycin 1 GM in Dextrose 5% In Water 250 ML IVPB SCH ×2 (09:35→21:35)
[2016-06-10 09:42] LABS: BAND 2 % (0-2); NEUTROPHIL 83 % (50.0-70.0)
[2016-06-10 09:43] LABS: ANISOCYTOSIS 1+; HYPOCHROMIA 1+; OVALOCYTES SLIGHT; PLATELET ESTIMATE HIGH (NORMAL); POIKILOCYTOSIS SLIGHT; POLYCHROMASIA SLIGHT; TEAR DROP CELLS SLIGHT
[2016-06-10 11:41] LABS: URINE BILIRUBIN NEGATIVE (NEGATIVE); URINE BLOOD SMALL (NEGATIVE); URINE GLUCOSE (UA) NEGATIVE (NEGATIVE); URINE KETONE 15 mg/dL (NEGATIVE); URINE LEUKOCYTE ESTERASE NEGATIVE Leu/uL (NEGATIVE); URINE PROTEIN 30 mg/dL (<30 mg/dL); URINE UROBILINOGEN 0.2 E.U./dL (<1 E.U./dL)
[2016-06-10 11:42] LABS: URINE APPEARANCE SLIGHT-CLOUDY (CLEAR); URINE COLOR YELLOW (YELLOW)
[2016-06-10 11:48] LABS: URINE BACTERIA TRACE (NEG); URINE EPITHELIAL CELLS 0 - 2 /hpf (0-5); URINE WBC 0 - 2 /hpf (0-6)
--- NOTE | 2016-06-10 12:25 | CP.PCM.PN ---
Subjective - Date & Time of Evaluation Date of Evaluation: 06/10/16 Time of Evaluation: 12:18 - Subjective Subjective: SURGERY NOTE FOR DR. HERBERT 86M seen and examined at bedside. Patient is on mechanical vent via trach. Unresponsive. Objective - Vital Signs/Intake and Output Vital Signs (last 24 hours): Temp Pulse Resp BP Pulse Ox 99.8 F H 120 H 24 127/62 94 L 06/10/16 11:53 06/10/16 10:08 06/10/16 08:07 06/10/16 10:08 06/10/16 10:08 Intake and Output: 06/10/16 06/10/16 06:59 18:59 Intake Total 790 Output Total 600 Balance 190 - Medications Medications: Current Medications Acetaminophen (Tylenol 650mg/20.3ml Solution Ud) 650 mg PO Q6H PRN PRN Reason: Fever >100.4 F Albuterol/Ipratropium (Duoneb 3 Mg/0.5 Mg (3 Ml) Ud) 3 ml IH [id number] [facility] Last Admin: 06/10/16 07:23 Dose: 3 ml Heparin Sodium (Porcine) (Heparin) 5,000 units SC Q12 SHARIF PRN Reason: Protocol Last Admin: 06/10/16 09:36 Dose: 5,000 units Metronidazole (Flagyl) 100 mls @ 100 mls/hr IVPB Q8 SHARIF PRN Reason: Protocol Last Admin: 06/10/16 05:08 Dose: 100 mls/hr Vancomycin HCl 1 gm/ Dextrose 250 mls @ 166.667 mls/hr IVPB Q12 [facility] Last Admin: 06/10/16 09:35 Dose: 166.667 mls/hr MEROPENEM-0.9% SODIUM CHLORIDE (Meropenem 1g/Ns 100ml Ivpb) 100 mls @ 100 mls/ hr IVPB Q8 SHARIF PRN Reason: Protocol Last Admin: 06/09/16 21:23 Dose: 100 mls/hr Potassium Phosphate 15 mmole/ (Sodium Chloride) 255 mls @ 42.5 mls/hr IVPB ONCE ONE Stop: 06/10/16 12:21 Last Admin: 06/10/16 07:35 Dose: 42.5 mls/hr Potassium Phosphate 15 mmole/ (Sodium Chloride) 255 mls @ 42.5 mls/hr IVPB ONCE ONE Stop: 06/10/16 13:27 Insulin Human Lispro (Humalog Med) 0 units SC ACHS SHARIF PRN Reason: Protocol Last Admin: 06/10/16 07:38 Dose: Not Given Lorazepam (Ativan) 2 mg IVP Q4H PRN; Protocol PRN Reason: Anxiety Last Admin: 06/09/16 19:06 Dose: 2 mg Morphine Sulfate (Morphine) 4 mg IVP Q4H PRN PRN Reason: Pain, moderate (4-7) Last Admin: 06/09/16 15:58 Dose: 4 mg Pantoprazole Sodium (Protonix Inj) 40 mg IVP Q12 SHARIF Last Admin: 06/10/16 09:36 Dose: 40 mg Vitamin A (Vitamin A & D Oint Ud Foilpak) 1 ea TOP Q12H PRN PRN Reason: Apply to dry lips Last Admin: 06/08/16 09:07 Dose: 1 ea - Labs Labs: 06/10/16 05:15 06/10/16 05:15 PT 15.4 Seconds (9.9-11.8) H 06/08/16 08:18 INR 1.43 (0.93-1.08) H 06/08/16 08:18 APTT 31.8 Seconds (23.7-30.8) H 06/08/16 08:18 - Head Exam Head Exam: ATRAUMATIC - ENT Exam Additional comments: Trach in place. - Respiratory Exam Respiratory Exam: Clear to Ausculation Bilateral, NORMAL BREATHING PATTERN - Cardiovascular Exam Cardiovascular Exam: REGULAR RHYTHM, +S1, +S2 - GI/Abdominal Exam GI & Abdominal Exam: Soft. absent: Distended, Firm, Guarding, Rigid Additional comments: gastrostomy tube in place, patient having feeds via G-tube. midline incision CDI. Aliza in place. Large b/l inguinal hernias - Neurological Exam Neurological Exam: absent: Alert, Awake - Skin Skin Exam: Dry, Intact, Normal Color, Warm Assessment and Plan - Assessment and Plan (Free Text) Assessment: 86M w. cecal mass, s/p ex-lap w. R hemicolectomy, POD#18, w. respiratory failure , s/p open trach and gastrostomy POD#2 -Path: adenocarcinoma -Post-op bleed likely at anastomosis site, resolved -continue Tube feeds -trach, will remove dressing POD#2 and will remove sutures POD#10 -c/w current medical management Further recs discuss with Dr. Nicholas Cordero, PGY1
--- NOTE | 2016-06-10 12:25 | PN ---
DATE: 06/10/2016 This 86-year-old male was examined at his bedside and his case was reviewed with his nurse, Lyssa Elizabeth. The patient has an elevated temperature this morning of 101.5. He is currently tachycardic and remains ventilatory dependent secondary to respiratory failure in the setting of aspiration pneumonia and ARDS. I have requested his nurse obtain a stat blood culture, urine culture and stool for C. diff toxin which she has sent and I have asked her to discuss current antibiotics and adjustment of them if needed with Dr. Victoria from infectious disease. The patient remains unresponsive. He now has a surgically placed PEG tube for feedings and meds. He remains unable to be weaned from the ventilator to date. PHYSICAL EXAMINATION: VITAL SIGNS: Temperature of 101.5, respirations 24, pulse 122, blood pressure 106/61, pulse ox 98% on 60% FIO2 and 6 of PEEP. I's and O's, 790 in and 600 mL out, thus far today. HEAD: Normocephalic, atraumatic. EYES: No icterus. EARS: Clear. THROAT: Noninjected. NECK: Supple. HEART: Rapid S1, S2. LUNGS: With occasional rhonchi bilaterally. ABDOMEN: Soft. PEG tube in place. EXTREMITIES: Legs without edema. SKIN: Without rash. He is wearing SCD anti-embolism stockings. VASCULAR: Legs warm to touch. PSYCHOLOGICAL: Unresponsive. NEUROLOGIC: Unresponsive to noxious stimuli. LABORATORY DATA: White count 19,900, hemoglobin 9.6, hematocrit 30.2, platelets 460,000. Sodium 142, K 3.6, chloride 106, bicarbonate 31, BUN 17, creatinine 0.5, random blood sugar was 101. Bilirubin 1.0, AST 59, ALT 36, alkaline phosphatase 164. Latest blood gas pH 7.42, pO2 69, pCO2 of 54, bicarbonate 35. IMPRESSION: An 86-year-old male, unresponsive, status post septic shock, hemorrhagic shock, gastrointestinal bleeding secondary to presumed bleeding at the anastomotic site of his right hemicolectomy for cecal adenocarcinoma, also with stress gastritis, aspiration pneumonia ARDS, respiratory failure requiring tracheostomy and vent support, now with a surgically placed percutaneous endoscopic gastrostomy tube with comorbidities of chronic obstructive pulmonary disease, anemia of gastrointestinal bleeding, anemia of chronic disease, hyperglycemia, for which he receives insulin coverage a.c. meals and at bedtime , sepsis, peptic ulcer disease, leukocytosis and toxic metabolic encephalopathy. PLAN: The patient has no next of kin that can be reached. He remains a FULL CODE. He continues on IV antibiotics under the direction of Dr. Fuentes Victoria, who I have asked to reevaluate today in light of his new fever. He continues on IV Protonix 40 mg IV q. 12 hours. Heparin has been approved 5000 units subQ q. 12 by surgery to prevent DVT. He remains on duo nebulizers for pulmonary toiletry and social service is involved in arranging for a ventilatory rehab facility. He remains FULL CODE. He will be treated in a supportive compassionate way. His overall prognosis is guarded. Approximately one hour was spent in the care, coordination of care, review of care and discussion of this patient's care with co-consultants, nursing and social service. Codi Pringle MD cc: [phone] TT: 06/10/2016 12:24:21 Confirmation # [id number] Dictation # [id number] cortez GOFF
[2016-06-10] MEDS: Meropenem 1g/NS 100mL IVPB 100 ML IVPB SCH ×2 (14:54→21:03)
--- NOTE | 2016-06-10 16:05 | CP.PCM.PN ---
Subjective - Date & Time of Evaluation Date of Evaluation: 06/10/16 Time of Evaluation: 15:00 - Subjective Subjective: Infectious Disease Follow Up: June 10, 2016 85 yo male with initial presentation for abdominal pain and abnormal CT scan sent from [facility] facility (I think [facility] [place]). 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 Currently the patient appears comfortable. He is unable to give any relevant information due to a severe developmental delay. Patient has been displaying increased leukocytosis since the surgery. Patient himself is intubated and ventilated. At best, he open his eyes spontaneously but make no meaningful interactions. 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 He has been in the MICU for over 2 weeks. He remains intubated and ventilated. The patient received tracheotomy and PEG placement. Patient has an extremely poor prognosis. There has been no improvement of the patient's mental status over the past few days. The patient has been essentially non-responsive. Still very high leukocytosis. Multiple potential reasons for increased leukocytosis including high dose steroids. On the whole, the patient was afebrile and stable respiratory sigala. Mentally no improvement at all. Currently off pressors. Poorly responsive. Very poor prognosis. Remains intubated and ventilated. Attempts to wean off ventilator. Mentally, no improvement. No family available. Occasionally open eyes but no meaningful interaction. There was a fever of 101.5 F this morning. Could potentially be reactive to the trach and PEG procedure (within 48 hours). If occurs again, will reculture. Objective - Vital Signs/Intake and Output Vital Signs (last 24 hours): Temp Pulse Resp BP Pulse Ox 99.8 F H 120 H 24 127/62 94 L 06/10/16 11:53 06/10/16 10:08 06/10/16 08:07 06/10/16 10:08 06/10/16 10:08 Intake and Output: 06/10/16 06/10/16 06:59 18:59 Intake Total 790 Output Total 600 Balance 190 - Medications Medications: Current Medications Acetaminophen (Tylenol 650mg/20.3ml Solution Ud) 650 mg PO Q6H PRN PRN Reason: Fever >100.4 F Albuterol/Ipratropium (Duoneb 3 Mg/0.5 Mg (3 Ml) Ud) 3 ml IH [id number] SHARIF Last Admin: 06/10/16 13:29 Dose: 3 ml Heparin Sodium (Porcine) (Heparin) 5,000 units SC Q12 [facility]ARIF PRN Reason: Protocol Last Admin: 06/10/16 09:36 Dose: 5,000 units Metronidazole (Flagyl) 100 mls @ 100 mls/hr IVPB Q8 SHAR[facility] PRN Reason: Protocol Last Admin: 06/10/16 14:54 Dose: 100 mls/hr Vancomycin HCl 1 gm/ Dextrose 250 mls @ 166.667 mls/hr IVPB Q12 [facility] Last Admin: 06/10/16 09:35 Dose: 166.667 mls/hr MEROPENEM-0.9% SODIUM CHLORIDE (Meropenem 1g/Ns 100ml Ivpb) 100 mls @ 100 mls/ hr IVPB Q8 SHARIF PRN Reason: Protocol Last Admin: 06/10/16 14:54 Dose: 100 mls/hr Insulin Human Lispro (Humalog Med) 0 units SC ACHS [facility] PRN Reason: Protocol Last Admin: 06/10/16 07:38 Dose: Not Given Lorazepam (Ativan) 2 mg IVP Q4H PRN; Protocol PRN Reason: Anxiety Last Admin: 06/09/16 19:06 Dose: 2 mg Morphine Sulfate (Morphine) 4 mg IVP Q4H PRN PRN Reason: Pain, moderate (4-7) Last Admin: 06/09/16 15:58 Dose: 4 mg Pantoprazole Sodium (Protonix Inj) 40 mg IVP Q12 [facility] Last Admin: 06/10/16 09:36 Dose: 40 mg Vitamin A (Vitamin A & D Oint Ud Foilpak) 1 ea TOP Q12H PRN PRN Reason: Apply to dry lips Last Admin: 06/08/16 09:07 Dose: 1 ea - Labs Labs: 06/10/16 05:15 06/10/16 05:15 PT 15.4 Seconds (9.9-11.8) H 06/08/16 08:18 INR 1.43 (0.93-1.08) H 06/08/16 08:18 APTT 31.8 Seconds (23.7-30.8) H 06/08/16 08:18 - Constitutional Appears: Chronically Ill - Head Exam Additional comments: intubated and ventilated. - Eye Exam Eye Exam: EOMI, PERRL Pupil Exam: NORMAL ACCOMODATION, PERRL - ENT Exam ENT Exam: Mucous Membranes Moist, Normal External Ear Exam, TM's Normal Bilaterally Additional comments: intubated and ventilated. - Neck Exam Additional comments: intubated and ventilated. - Respiratory Exam Respiratory Exam: absent: Rales, Rhonchi, Wheezes Additional comments: intubated and ventilated. - Cardiovascular Exam Cardiovascular Exam: REGULAR RHYTHM, RRR, +S1, +S2 - GI/Abdominal Exam GI & Abdominal Exam: Soft, Normal Bowel Sounds. absent: Distended, Tenderness - Extremities Exam Extremities Exam: Full ROM, Normal Inspection - Neurological Exam Neurological Exam: absent: Alert, Awake, CN II-XII Intact, Oriented x3 Additional comments: tracheotomy and ventilated. Poorly responsive. spontaneously opens eyes. - Psychiatric Exam Additional comments: tracheotomy and ventilated. Poorly responsive. spontaneously opens eyes. - Skin Additional comments: tracheotomy and ventilated. Poorly responsive. spontaneously opens eyes. Assessment and Plan - Assessment and Plan (Free Text) Assessment: 85 yo male with cecal mass and bilateral hernia had exploratory laparotomy with right hemicolectomy. The patient is unable to give any significant information when speaking with him. He is not complaining of pain. The patient leukocytosis remains elevated at 19.9. Supportive care. Adenocarcinoma in cecal mass pathology. Silva cultures sent. Had Proteus in urine culture over a week ago but more recent urine culture is negative for growth. No growth in recent cultures so far. C. Diff studies negative. Currently on Meropenem and Flagyl for antibiotic coverage. Supportive care. Extremely poor prognosis with care bordering on futility at this point. No improvement in mental status over the past few days. Remains in MICU and required intubation and ventilation. On antibiotics of Vancomycin, Meropenem, and Flagyl currently. Awaiting repeat cultures - negative to date at 5+ days. No further surgical interventions. Possible aspiration pneumonia. Bleed at anastomotic site. Patient is hemodynamically stable. CT when patient stable enough to do so. He is currently off pressors. Repeat Abdominal X-ray shows resolvement of SBO portion of disease. Patient remains critically ill and has an extremely poor prognosis. He remains intubated and ventilated. There are attempts to wean off ventilator. No family available for decision making for the patient. Persistent high leukocytosis. The patient had PEG and trach placed. Fevers one episode up to 101.5 F. If another fever occurs, repeat cultures. Thank you for allowing me to participate in the care of the patient, we will follow with you.
[2016-06-11] MEDS: Albuterol-Ipratrop 3 mg / 0.5 (3 ml) UD IH SCH ×5 (01:30→20:43)
[2016-06-11] MEDS: metroNIDAZOLE IV 500 mg/100 ml 100 ML IVPB SCH ×3 (05:07→22:13)
[2016-06-11] MEDS: Meropenem 1g/NS 100mL IVPB 100 ML IVPB SCH (05:07)
[2016-06-11 05:24] LABS: ALB/GLOB RATIO 0.6 (1.1-1.8); ALKALINE PHOSPHATASE 165 U/L (38-133); ALT/SGPT 32 U/L (7-56); AST/SGOT 58 U/L (15-59); BILIRUBIN,TOTAL 0.6 mg/dL (0.2-1.3); BLOOD UREA NITROGEN 14 mg/dL (7-21); CALCIUM 7.2 mg/dL (8.4-10.5); CARBON DIOXIDE 31 mmol/L (21-33); CHLORIDE 105 mmol/L (98-107); GFR AFRICAN-AMERICAN > 60; GLUCOSE,RANDOM 106 mg/dL (70-110); HEMATOCRIT 28.6 % (42.0-52.0); MEAN CELL VOLUME 90.5 fL (80.0-105.0); MEAN CORPUSCULAR HEMOGLOBIN 28.5 pg (25.0-35.0); MEAN CORPUSCULAR HGB CONC 31.5 g/dl (31.0-37.0); MEAN PLATELET VOLUME 11.8 fl (7.0-11.0); PLATELET COUNT 458 10^3/uL (120.0-450.0); POTASSIUM 3.6 mmol/L (3.6-5.0); RED CELL DISTRIBUTION WIDTH 19.1 % (11.5-14.5); SODIUM 139 mmol/L (132-148); TOTAL PROTEIN 5.3 g/dL (5.8-8.3); WHITE BLOOD COUNT 20.5 10^3/ul (4.5-11.0)
[2016-06-11 05:27] LABS: ADD MANUAL DIFF? YES
[2016-06-11 05:51] LABS: BAND 2 % (0-2)
[2016-06-11 05:52] LABS: ANISOCYTOSIS 1+; EOSINOPHIL 3 % (0.0-3.0); HYPOCHROMIA 1+; LARGE PLATELETS PRESENT; NEUTROPHIL 85 % (50.0-70.0); PLATELET ESTIMATE HIGH (NORMAL)
[2016-06-11] MEDS: Insulin Lispro (humaLOG) MEDIUM Coverage SC SCH ×4 (07:35→22:56)
--- NOTE | 2016-06-11 09:36 | CP.CCUPN ---
CCU Subjective - Physician Review Events Since Last Encounter (Free Text): 06/11/16 09:32 No acute events. Remains normotensive and afebrile in the past 24 hrs No improvements in Mental status thus far. CCU Objective - Vital Signs / Intake & Output Intake and Output (Last 8hrs): Intake & Output 06/10/16 06/11/16 06/11/16 22:59 06:59 14:59 Intake Total 900 1010 Output Total 420 575 Balance 480 435 Weight 164 lb 6.4 oz Intake: IV 650 Right Internal Jugular 650 Tube Feeding 450 360 Other 450 Output: Urine 400 575 Urethral (Gleason) 400 575 Stool 20 Other: Voiding Method Indwelling Catheter - Physical Exam Physical Exam Limitations: Positive for: Altered Mental Status Head: Positive for: Atraumatic, Normocephalic. Negative for: Ecchymosis Pupils: Positive for: PERRL Extroacular Muscles: Positive for: EOMI Conjunctiva: Negative for: Injected, Icteric Mouth: Positive for: Moist Mucous Membranes, Dry Pharnyx: Positive for: Normal. Negative for: ERYTHEMA Nose (Internal): Positive for: Normal Inspection, No Active Bleeding Neck: Positive for: Normal Range of Motion (Tracheostomy in place ) Respiratory/Chest: Positive for: Clear to Auscultation, Good Air Exchange Cardiovascular: Positive for: Regular Rate and Rhythm, Normal S1, S2 Abdomen: Positive for: Normal Bowel Sounds (post surgical changes ), Hernias, Other (Incision C/D/I). Negative for: Tenderness, Distention, Peritoneal Signs , Rebound, Guarding Rectal: Positive for: Other (Rectal tube) Genitourinary Male: Positive for: Testicle Tenderness, Hernias, Testicle Swelling, Other (Large 76p96cm R inguinal hernia: irreducible. 10x5cm L inguinal hernia : irreducible.Gleason 1L /24hrs). Negative for: Normal External Genitalia Back: Positive for: Normal Inspection Upper Extremity: Positive for: Normal Inspection, Edema, Swelling. Negative for : Erythema Lower Extremity: Positive for: Normal Inspection, Edema, Swelling. Negative for : Cyanosis Neurological: Positive for: CN II-XII Intact, Normal Cerebellar Funct (non verbal. doesn't open eyes or follw commands ) Skin: Positive for: Warm, Dry Psychiatric: Negative for: Alert, Oriented x 3, Normal Insight - Medications Active Medications: Active Medications Generic Name Dose Route Start Last Admin Trade Name Freq PRN Reason Stop Dose Admin Acetaminophen 650 mg 06/10/16 11:35 Tylenol 650mg/20.3ml Solution Ud PO Q6H PRN Fever >100.4 F Albuterol/Ipratropium 3 ml 05/30/16 14:00 06/11/16 07:39 Duoneb 3 Mg/0.5 Mg (3 Ml) Ud IH 3 ml [id number] SHARIF Administration Heparin Sodium (Porcine) 5,000 units 06/08/16 22:00 06/10/16 21:04 Heparin SC 5,000 units Q12 SHARIF Administration Protocol Metronidazole 100 mls @ 100 mls/hr 05/24/16 08:15 06/11/16 05:07 Flagyl IVPB 100 mls/hr Q8 SHARIF Administration Protocol Vancomycin HCl 1 gm/ Dextrose 250 mls @ 166.667 mls/hr 06/02/16 22:00 06/10/16 21:35 IVPB 166.667 mls/hr Q12 SHARIF Administration MEROPENEM-0.9% SODIUM CHLORIDE 100 mls @ 100 mls/hr 06/06/16 09:08 06/11/16 05: 07 Meropenem 1g/Ns 100ml Ivpb IVPB 100 mls/hr Q8 SHARIF Administration Protocol Insulin Human Lispro 0 units 05/31/16 22:00 06/10/16 22:07 Humalog Med SC Not Given ACHS SHARIF Protocol Lorazepam 2 mg 06/09/16 19:05 06/09/16 19:06 Ativan IVP 2 mg Q4H PRN Administration Anxiety Protocol Morphine Sulfate 4 mg 06/08/16 13:49 06/09/16 15:58 Morphine IVP 4 mg Q4H PRN Administration Pain, moderate (4-7) Pantoprazole Sodium 40 mg 06/01/16 10:00 06/10/16 21:05 Protonix Inj IVP 40 mg Q12 SHARIF Administration Vitamin A 1 ea 06/07/16 16:02 06/08/16 09:07 Vitamin A & D Oint Ud Foilpak TOP 1 ea Q12H PRN Administration Apply to dry lips - Patient Studies Lab Studies: Microbiology Studies 06/10/16 11:12 Urine Culture - Final Urine,Gleason No Growth (<1,000 CFU/ML) Lab Studies 06/11/16 06/10/16 06/10/16 Range/Units 05:00 16:18 11:12 WBC 20.5 H (4.5-11.0) 10^3/ul RBC 3.16 L (3.5-6.1) 10^6/uL Hgb 9.0 L (14.0-18.0) gm/dL Hct 28.6 L (42.0-52.0) % MCV 90.5 (80.0-105.0) fL MCH 28.5 (25.0-35.0) pg MCHC 31.5 (31.0-37.0) g/dl RDW 19.1 H (11.5-14.5) % Plt Count 458 H (120.0-450.0) 10^3/uL MPV 11.8 H (7.0-11.0) fl Neutrophils % (Manual) 85 H (50.0-70.0) % Band Neutrophils % 2 (0-2) % Lymphocytes % (Manual) 2 L (22.0-35.0) % Monocytes % (Manual) 8 H (1.0-6.0) % Eosinophils % (Manual) 3 (0.0-3.0) % Platelet Evaluation High (NORMAL) Large Platelets Present Polychromasia Hypochromasia 1+ Poikilocytosis (manual Anisocytosis (manual) 1+ Tear Drop Cells Ovalocytes Sodium 139 (132-148) mmol/L Potassium 3.6 (3.6-5.0) mmol/L Chloride 105 (98-107) mmol/L Carbon Dioxide 31 (21-33) mmol/L Anion Gap 7 L (10-20) BUN 14 (7-21) mg/dL Creatinine 0.5 (0.5-1.4) mg/dL Est GFR ( Amer) > 60 Est GFR (Non-Af Amer) > 60 POC Glucose (mg/dL) 132 H (65-110) mg/dL Random Glucose 106 (70-110) mg/dL Calcium 7.2 L (8.4-10.5) mg/dL Total Bilirubin 0.6 (0.2-1.3) mg/dL AST 58 (15-59) U/L ALT 32 (7-56) U/L Alkaline Phosphatase 165 H (38-133) U/L Total Protein 5.3 L (5.8-8.3) g/dL Albumin 1.9 L (3.0-4.8) g/dL Globulin 3.4 gm/dL Albumin/Globulin Ratio 0.6 L (1.1-1.8) Urine Color Yellow (YELLOW) Urine Appearance Slight-cloudy (CLEAR) Urine pH 7.0 (4.7-8.0) Ur Specific [place] 1.025 (1.005-1.035) Urine Protein 30 H (<30 mg/dL) mg/dL Urine Glucose (UA) Negative (NEGATIVE) mg/dL Urine Ketones 15 H (NEGATIVE) mg/dL Urine Blood Small H (NEGATIVE) Urine Nitrate Negative (NEGATIVE) Urine Bilirubin Negative (NEGATIVE) Urine Urobilinogen 0.2 (<1 E.U./dL) E.U./dL Ur Leukocyte Esterase Negative (NEGATIVE) Aakash/uL Urine RBC 1 - 3 (0-2) /hpf Urine WBC 0 - 2 (0-6) /hpf Ur Epithelial Cells 0 - 2 (0-5) /hpf Urine Bacteria Trace (NEG) 06/10/16 Range/Units 05:15 WBC (4.5-11.0) 10^3/ul RBC (3.5-6.1) 10^6/uL Hgb (14.0-18.0) gm/dL Hct (42.0-52.0) % MCV (80.0-105.0) fL MCH (25.0-35.0) pg MCHC (31.0-37.0) g/dl RDW (11.5-14.5) % Plt Count (120.0-450.0) 10^3/uL MPV (7.0-11.0) fl Neutrophils % (Manual) 83 H (50.0-70.0) % Band Neutrophils % 2 (0-2) % Lymphocytes % (Manual) 10 L (22.0-35.0) % Monocytes % (Manual) 5 (1.0-6.0) % Eosinophils % (Manual) (0.0-3.0) % Platelet Evaluation High (NORMAL) Large Platelets Polychromasia Slight Hypochromasia 1+ Poikilocytosis (manual Slight Anisocytosis (manual) 1+ Tear Drop Cells Slight Ovalocytes Slight Sodium (132-148) mmol/L Potassium (3.6-5.0) mmol/L Chloride (98-107) mmol/L Carbon Dioxide (21-33) mmol/L Anion Gap (10-20) BUN (7-21) mg/dL Creatinine (0.5-1.4) mg/dL Est GFR ( Amer) Est GFR (Non-Af Amer) POC Glucose (mg/dL) (65-110) mg/dL Random Glucose (70-110) mg/dL Calcium (8.4-10.5) mg/dL Total Bilirubin (0.2-1.3) mg/dL AST (15-59) U/L ALT (7-56) U/L Alkaline Phosphatase (38-133) U/L Total Protein (5.8-8.3) g/dL Albumin (3.0-4.8) g/dL Globulin gm/dL Albumin/Globulin Ratio (1.1-1.8) Urine Color (YELLOW) Urine Appearance (CLEAR) Urine pH (4.7-8.0) Ur Specific [place] (1.005-1.035) Urine Protein (<30 mg/dL) mg/dL Urine Glucose (UA) (NEGATIVE) mg/dL Urine Ketones (NEGATIVE) mg/dL Urine Blood (NEGATIVE) Urine Nitrate (NEGATIVE) Urine Bilirubin (NEGATIVE) Urine Urobilinogen (<1 E.U./dL) E.U./dL Ur Leukocyte Esterase (NEGATIVE) Aakash/uL Urine RBC (0-2) /hpf Urine WBC (0-6) /hpf Ur Epithelial Cells (0-5) /hpf Urine Bacteria (NEG) Laboratory Results - last 24 hr 06/10/16 06/10/16 06/10/16 05:15 11:12 16:18 WBC RBC Hgb Hct MCV MCH MCHC RDW Plt Count MPV Neutrophils % (Manual) 83 H Band Neutrophils % 2 Lymphocytes % (Manual) 10 L Monocytes % (Manual) 5 Eosinophils % (Manual) Platelet Evaluation High Large Platelets Polychromasia Slight Hypochromasia 1+ Poikilocytosis (manual Slight Anisocytosis (manual) 1+ Tear Drop Cells Slight Ovalocytes Slight Sodium Potassium Chloride Carbon Dioxide Anion Gap BUN Creatinine Est GFR ( Amer) Est GFR (Non-Af Amer) POC Glucose (mg/dL) 132 H Random Glucose Calcium Total Bilirubin AST ALT Alkaline Phosphatase Total Protein Albumin Globulin Albumin/Globulin Ratio Urine Color Yellow Urine Appearance Slight-cloudy Urine pH 7.0 Ur Specific [place] 1.025 Urine Protein 30 H Urine Glucose (UA) Negative Urine Ketones 15 H Urine Blood Small H Urine Nitrate Negative Urine Bilirubin Negative Urine Urobilinogen 0.2 Ur Leukocyte Esterase Negative Urine RBC 1 - 3 Urine WBC 0 - 2 Ur Epithelial Cells 0 - 2 Urine Bacteria Trace 06/11/16 05:00 WBC 20.5 H RBC 3.16 L Hgb 9.0 L Hct 28.6 L MCV 90.5 MCH 28.5 MCHC 31.5 RDW 19.1 H Plt Count 458 H MPV 11.8 H Neutrophils % (Manual) 85 H Band Neutrophils % 2 Lymphocytes % (Manual) 2 L Monocytes % (Manual) 8 H Eosinophils % (Manual) 3 Platelet Evaluation High Large Platelets Present Polychromasia Hypochromasia 1+ Poikilocytosis (manual Anisocytosis (manual) 1+ Tear Drop Cells Ovalocytes Sodium 139 Potassium 3.6 Chloride 105 Carbon Dioxide 31 Anion Gap 7 L BUN 14 Creatinine 0.5 Est GFR ( Amer) > 60 Est GFR (Non-Af Amer) > 60 POC Glucose (mg/dL) Random Glucose 106 Calcium 7.2 L Total Bilirubin 0.6 AST 58 ALT 32 Alkaline Phosphatase 165 H Total Protein 5.3 L Albumin 1.9 L Globulin 3.4 Albumin/Globulin Ratio 0.6 L Urine Color Urine Appearance Urine pH Ur Specific [place] Urine Protein Urine Glucose (UA) Urine Ketones Urine Blood Urine Nitrate Urine Bilirubin Urine Urobilinogen Ur Leukocyte Esterase Urine RBC Urine WBC Ur Epithelial Cells Urine Bacteria Fingerstick Blood Sugar Results: 130 Review of Systems - Review of Systems Systems not reviewed;Unavailable: Altered Mental Status Assessment/Plan - Assessment and Plan (Free Text) Assessment: 86 y/o M w/ resolved ARDS and Septic shock Currently s/p Tracheostomy and PEG placement. On Daily SBT trials , today lasted 20 minutes ps 12 before RR >35 Yesterday had fever spike, currently on Broad spectrum abx per I.D without any new cx findings. Continues to have some minimal watery stools Family POA have not made any decisions thus far. Awaiting social work to find placement for NH cc time 45 min
[2016-06-11] MEDS: Acetaminophen 650mg/20.3ml solution UD PO PRN (10:00)
[2016-06-11] MEDS: Vancomycin 1 GM in Dextrose 5% In Water 250 ML IVPB SCH ×2 (10:04→22:14)
--- NOTE | 2016-06-11 12:30 | PN ---
DATE: 06/11/2016 This 86-year-old male remains hospitalized in critical care bed #1. He remains unresponsive to verba l or noxious stimuli. He now has a tracheostomy and a surgically placed PEG and is awaiting social s ervice placement to a ventilatory rehab facility. 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 The patient has been unable to be weaned from the ventil ator to date. He has had complications of toxic metabolic encephalopathy. He remains unresponsive w ith no purposeful movement and now has a tracheostomy and surgically placed PEG for all feeding, flui ds and meds. He remains on IV antibiotics under the direction of Dr. Victoria with whom I have discussed t his case in detail and who will be deciding on the ultimate meds and duration of course. There have been no reports of hemoptysis, hematemesis, or bright red blood per rectum, and no family members hav e been able to be contacted during his ICU course to date. He remains a full code as per his previo healthcare proxy and will be awaiting social service placement. PHYSICAL EXAMINATION: VITAL SIGNS: Temperature 99.6, respirations 25, pulse 112, blood pressure 121/63 with a pulse ox of 98% on 60% FIO2, with I's and O's of 1010 mL in and 575 mL out. HEAD: Normocephalic, atraumatic. EYES: No icterus. NECK: Supple. HEART: S1, S2. LUNGS: With occasional rhonchi bilaterally. ABDOMEN: With PEG tube in place, soft. EXTREMITIES: Wearing anti-embolism stockings. SKIN: Without rash. NEUROLOGIC: Unchanged. PSYCHOLOGICAL: Unresponsive. VASCULAR: Legs warm to touch. LABORATORY DATA: White count 20,500, hemoglobin 9, hematocrit 28.6, platelets 458,000. Sodium 139, potassium 3.6, chloride 100, bicarb 31, BUN 14, creatinine 0.5, random blood sugar is 106, bilirubin 0.6, AST 58, ALT 32, alk phos 165. 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 PLAN: At present is to continue pulmonary toiletry, DuoNeb nebulizers, IV antibiotics under the dire ction of Dr. Victoria from infectious disease, which presently include Flagyl, meropenem and vancomycin, conn bcu heparin, which has been approved by surgery for DVT prophylaxis, insulin coverage, a.c. meals and at bedtime. He is being fed with Jevity through his PEG with water flushes as tolerated. He contin ues on IV Protonix q. 12. Palliative care follows the patient as well. He remains on aspiration pre cautions, fall precautions. SCD anti-embolism stockings and ultimate plan will be for placement in a respiratory ventilatory rehab when social service can accomplish this goal overall prognosis remains poor. The patient remains full code at the present time. Approximately 1 hour was spent in the care, coordination of care and discussion of care with the nurs ing co-consultants and social service. Codi Pringle MD cc: [phone] TT: 06/11/2016 12:29:49 Confirmation # [id number] Dictation # [id number] an
--- NOTE | 2016-06-11 14:06 | CP.PCM.PN ---
Subjective - Date & Time of Evaluation Date of Evaluation: 06/11/16 Time of Evaluation: 13:15 - Subjective Subjective: Infectious Disease Follow Up: June 11, 2016 85 yo male with initial presentation for abdominal pain and abnormal CT scan sent from [facility] facility (I think [facility] [place]). 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 Currently the patient appears comfortable. He is unable to give any relevant information due to a severe developmental delay. Patient has been displaying increased leukocytosis since the surgery. Patient himself is intubated and ventilated. At best, he open his eyes spontaneously but make no meaningful interactions. 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 He has been in the MICU for over 2 weeks. He remains intubated and ventilated. The patient received tracheotomy and PEG placement. Patient has an extremely poor prognosis. There has been no improvement of the patient's mental status over the past few days. The patient has been essentially non-responsive. Still very high leukocytosis. Multiple potential reasons for increased leukocytosis including high dose steroids. On the whole, the patient was afebrile and stable respiratory sigala. Mentally no improvement at all. Currently off pressors. Poorly responsive. Very poor prognosis. Remains intubated and ventilated. Attempts to wean off ventilator. Mentally, no improvement. No family available. Occasionally open eyes but no meaningful interaction. There was a fever of 101.5 F this morning. Recultured. Stopped Meropenem and Started Amikacin. Objective - Vital Signs/Intake and Output Vital Signs (last 24 hours): Temp Pulse Resp BP Pulse Ox 99.6 F 112 H 25 H 121/63 98 06/11/16 11:49 06/11/16 11:49 06/11/16 11:49 06/11/16 11:49 06/11/16 11:49 Intake and Output: 06/11/16 06/11/16 06:59 18:59 Intake Total 1010 Output Total 575 Balance 435 - Medications Medications: Current Medications Acetaminophen (Tylenol 650mg/20.3ml Solution Ud) 650 mg PO Q6H PRN PRN Reason: Fever >100.4 F Last Admin: 06/11/16 10:00 Dose: 650 mg Albuterol/Ipratropium (Duoneb 3 Mg/0.5 Mg (3 Ml) Ud) 3 ml IH [id number] [facility] Last Admin: 06/11/16 13:02 Dose: 3 ml Heparin Sodium (Porcine) (Heparin) 5,000 units SC Q12 SHARIF PRN Reason: Protocol Last Admin: 06/11/16 10:04 Dose: 5,000 units Metronidazole (Flagyl) 100 mls @ 100 mls/hr IVPB Q8 SHARIF PRN Reason: Protocol Last Admin: 06/11/16 05:07 Dose: 100 mls/hr Vancomycin HCl 1 gm/ Dextrose 250 mls @ 166.667 mls/hr IVPB Q12 [facility] Last Admin: 06/11/16 10:04 Dose: 166.667 mls/hr Amikacin Sulfate 500 mg/ (Sodium Chloride) 102 mls @ 204 mls/hr IVPB Q8 SHARIF PRN Reason: Protocol Insulin Human Lispro (Humalog Med) 0 units SC ACHS SHARIF PRN Reason: Protocol Last Admin: 06/11/16 11:46 Dose: Not Given Lorazepam (Ativan) 2 mg IVP Q4H PRN; Protocol PRN Reason: Anxiety Last Admin: 06/09/16 19:06 Dose: 2 mg Morphine Sulfate (Morphine) 4 mg IVP Q4H PRN PRN Reason: Pain, moderate (4-7) Last Admin: 06/09/16 15:58 Dose: 4 mg Pantoprazole Sodium (Protonix Inj) 40 mg IVP Q12 [facility] Last Admin: 06/11/16 10:04 Dose: 40 mg Vitamin A (Vitamin A & D Oint Ud Foilpak) 1 ea TOP Q12H PRN PRN Reason: Apply to dry lips Last Admin: 06/08/16 09:07 Dose: 1 ea - Labs Labs: 06/11/16 05:00 06/11/16 05:00 PT 15.4 Seconds (9.9-11.8) H 06/08/16 08:18 INR 1.43 (0.93-1.08) H 06/08/16 08:18 APTT 31.8 Seconds (23.7-30.8) H 06/08/16 08:18 - Constitutional Appears: Chronically Ill - Head Exam Additional comments: intubated and ventilated. - Eye Exam Eye Exam: EOMI, PERRL Pupil Exam: NORMAL ACCOMODATION, PERRL - ENT Exam Additional comments: intubated and ventilated. - Neck Exam Additional comments: intubated and ventilated. - Respiratory Exam Respiratory Exam: absent: Rales, Rhonchi, Wheezes Additional comments: intubated and ventilated. - Cardiovascular Exam Cardiovascular Exam: REGULAR RHYTHM, RRR, +S1, +S2 - GI/Abdominal Exam GI & Abdominal Exam: Soft, Normal Bowel Sounds. absent: Distended, Tenderness - Extremities Exam Additional comments: mild edema all extremities - Neurological Exam Neurological Exam: absent: Alert, Awake Additional comments: tracheotomy and ventilated. Poorly responsive. spontaneously opens eyes. - Psychiatric Exam Additional comments: tracheotomy and ventilated. Poorly responsive. spontaneously opens eyes. - Skin Skin Exam: Intact Assessment and Plan - Assessment and Plan (Free Text) Assessment: 85 yo male with cecal mass and bilateral hernia had exploratory laparotomy with right hemicolectomy. The patient is unable to give any significant information when speaking with him. He is not complaining of pain. The patient leukocytosis remains elevated at 19.9. Supportive care. Adenocarcinoma in cecal mass pathology. Silva cultures sent. Had Proteus in urine culture over a week ago but more recent urine culture is negative for growth. No growth in recent cultures so far. C. Diff studies negative. Currently on Meropenem and Flagyl for antibiotic coverage. Supportive care. Extremely poor prognosis with care bordering on futility at this point. No improvement in mental status over the past few days. Remains in MICU and required intubation and ventilation. On antibiotics of Vancomycin, Meropenem, and Flagyl currently. Awaiting repeat cultures - negative to date at 5+ days. No further surgical interventions. Possible aspiration pneumonia. Bleed at anastomotic site. Patient is hemodynamically stable. CT when patient stable enough to do so. He is currently off pressors. Repeat Abdominal X-ray shows resolvement of SBO portion of disease. Patient remains critically ill and has an extremely poor prognosis. He remains intubated and ventilated. There are attempts to wean off ventilator. No family available for decision making for the patient. Persistent high leukocytosis. The patient had PEG and trach placed. Fevers each morning one episode up to 101.5 F the last two days. Stopped meropenem and started Amikacin. Thank you for allowing me to participate in the care of the patient, we will follow with you.
--- NOTE | 2016-06-11 14:46 | CP.PCM.PN ---
Subjective - Date & Time of Evaluation Date of Evaluation: 06/11/16 Time of Evaluation: 14:43 - Subjective Subjective: Surgery: Dr. Peterson Pt seen and examined. No acute events overnight. Remains intubated. Unresponsive. Objective - Vital Signs/Intake and Output Vital Signs (last 24 hours): Temp Pulse Resp BP Pulse Ox 99.6 F 112 H 25 H 121/63 98 06/11/16 11:49 06/11/16 11:49 06/11/16 11:49 06/11/16 11:49 06/11/16 11:49 Intake and Output: 06/11/16 06/11/16 06:59 18:59 Intake Total 1010 Output Total 575 Balance 435 - Medications Medications: Current Medications Acetaminophen (Tylenol 650mg/20.3ml Solution Ud) 650 mg PO Q6H PRN PRN Reason: Fever >100.4 F Last Admin: 06/11/16 10:00 Dose: 650 mg Albuterol/Ipratropium (Duoneb 3 Mg/0.5 Mg (3 Ml) Ud) 3 ml IH [id number] SHARIF Last Admin: 06/11/16 13:02 Dose: 3 ml Heparin Sodium (Porcine) (Heparin) 5,000 units SC Q12 SHARIF PRN Reason: Protocol Last Admin: 06/11/16 10:04 Dose: 5,000 units Metronidazole (Flagyl) 100 mls @ 100 mls/hr IVPB Q8 SHARIF PRN Reason: Protocol Last Admin: 06/11/16 05:07 Dose: 100 mls/hr Vancomycin HCl 1 gm/ Dextrose 250 mls @ 166.667 mls/hr IVPB Q12 SHAR[facility] Last Admin: 06/11/16 10:04 Dose: 166.667 mls/hr Amikacin Sulfate 500 mg/ (Sodium Chloride) 102 mls @ 204 mls/hr IVPB Q8 SHARIF PRN Reason: Protocol Insulin Human Lispro (Humalog Med) 0 units SC ACHS SHARIF PRN Reason: Protocol Last Admin: 06/11/16 11:46 Dose: Not Given Lorazepam (Ativan) 2 mg IVP Q4H PRN; Protocol PRN Reason: Anxiety Last Admin: 06/09/16 19:06 Dose: 2 mg Morphine Sulfate (Morphine) 4 mg IVP Q4H PRN PRN Reason: Pain, moderate (4-7) Last Admin: 06/09/16 15:58 Dose: 4 mg Pantoprazole Sodium (Protonix Inj) 40 mg IVP Q12 SHARIF Last Admin: 06/11/16 10:04 Dose: 40 mg Vitamin A (Vitamin A & D Oint Ud Foilpak) 1 ea TOP Q12H PRN PRN Reason: Apply to dry lips Last Admin: 06/08/16 09:07 Dose: 1 ea - Labs Labs: 06/11/16 05:00 06/11/16 05:00 PT 15.4 Seconds (9.9-11.8) H 06/08/16 08:18 INR 1.43 (0.93-1.08) H 06/08/16 08:18 APTT 31.8 Seconds (23.7-30.8) H 06/08/16 08:18 - Constitutional Appears: Non-toxic, No Acute Distress, Chronically Ill - Head Exam Head Exam: ATRAUMATIC, NORMOCEPHALIC - Eye Exam Eye Exam: absent: Scleral icterus - ENT Exam ENT Exam: Mucous Membranes Dry - Respiratory Exam Additional comments: intubated, s/p trach, trach site C/D/I, no hematoma - GI/Abdominal Exam GI & Abdominal Exam: Soft. absent: Distended, Firm, Guarding, Rigid, Tenderness Additional comments: midline incision C/D/I, L side gastrostomy tube in place, site C/D/I - Extremities Exam Extremities Exam: absent: Calf Tenderness, Pedal Edema - Neurological Exam Neurological Exam: absent: Alert, Awake, Oriented x3 Assessment and Plan - Assessment and Plan (Free Text) Assessment: 86M w. cecal mass, s/p ex-lap w. R hemicolectomy, POD#20 and trach and gastrostomy tube palcement, POD#3 -Path: adenocarcinoma -Post-op bleed likely at anastomosis site, resolved -continue Tube feeds -trach, remove sutures POD#10 -c/w current medical management -will d/w attending Mily PGY2
--- NOTE | 2016-06-11 20:15 | PN ---
DATE: 06/11/2016 SUBJECTIVE: This patient was seen and evaluated earlier. The patient remains on the vent. Opening his eyes with non-focussed off the pressures. PHYSICAL EXAMINATION: VITAL SIGNS: T-max 101.5, blood pressure 121/63, O2 saturation 98%, pulse 110. HEENT: Atraumatic, anicteric. NECK: Status post tracheostomy. LUNGS: Bilateral air entry present. ABDOMEN: PEG tube present. GENITOURINARY: Had a right inguinal scrotal hernia. LABORATORY DATA: WBC 20.5, hemoglobin 9, hematocrit 28.6 and platelets . Chemistry: Albumin 1 .9, creatinine 0.5. Repeat cultures done. IMPRESSION: This 86-year-old patient is status post right hemicolectomy for adenocarcinoma of the ce cum. Postop course complicated by small-bowel obstruction, gastrointestinal bleeding, status post ca rdiac arrest, presently vent dependent. Mental status shows no significant improvement. The patient did spike a temperature again. Recultured and on antibiotics as per ID. Will continue to follow e patient. Thank you very much for allowing me to participate in the care of the patient. Ann Luna MD cc: [phone] TT: 06/11/2016 20:14:34 Confirmation # [id number] Dictation # [id number] ashwini
[2016-06-12] MEDS: metroNIDAZOLE IV 500 mg/100 ml 100 ML IVPB SCH ×3 (05:32→21:21)
[2016-06-12 05:39] LABS: BASO # 0.01 K/mm3 (0.0-2.0); EOS # 0.2 (0.0-0.7); EOS % 0.8 % (1.5-5.0); GRAN # 18.34 (1.4-6.5); GRAN % 86.4 % (50.0-68.0); HEMATOCRIT 28.9 % (42.0-52.0); LYMPH # 0.9 (1.2-3.4); MEAN CELL VOLUME 90.9 fL (80.0-105.0); MEAN CORPUSCULAR HEMOGLOBIN 28.3 pg (25.0-35.0); MEAN CORPUSCULAR HGB CONC 31.1 g/dl (31.0-37.0); MEAN PLATELET VOLUME 11.7 fl (7.0-11.0); MONO # 1.9 (0.1-0.6); MONO % 8.8 % (1.0-6.0); PLATELET COUNT 443 10^3/uL (120.0-450.0); RED CELL DISTRIBUTION WIDTH 19.3 % (11.5-14.5); WHITE BLOOD COUNT 21.3 10^3/ul (4.5-11.0)
[2016-06-12 05:48] LABS: ADD MANUAL DIFF? NO
[2016-06-12 06:44] LABS: ALB/GLOB RATIO 0.6 (1.1-1.8); ALKALINE PHOSPHATASE 161 U/L (38-133); ALT/SGPT 34 U/L (7-56); AST/SGOT 62 U/L (15-59); BILIRUBIN,TOTAL 0.6 mg/dL (0.2-1.3); BLOOD UREA NITROGEN 14 mg/dL (7-21); CALCIUM 7.2 mg/dL (8.4-10.5); CARBON DIOXIDE 31 mmol/L (21-33); CHLORIDE 106 mmol/L (98-107); GFR AFRICAN-AMERICAN > 60; GLUCOSE,RANDOM 108 mg/dL (70-110); POTASSIUM 3.5 mmol/L (3.6-5.0); SODIUM 143 mmol/L (132-148); TOTAL PROTEIN 5.3 g/dL (5.8-8.3)
[2016-06-12] MEDS: Albuterol-Ipratrop 3 mg / 0.5 (3 ml) UD IH SCH ×3 (07:37→19:42)
[2016-06-12] MEDS: Insulin Lispro (humaLOG) MEDIUM Coverage SC SCH ×4 (08:10→22:07)
--- NOTE | 2016-06-12 08:10 | CP.CCUPN ---
<Roger Britton - Last Filed: 06/12/16 09:22> CCU Subjective - Physician Review Subjective (Free Text): Pt s&e w ICU attending. Pt is off sedation, on vent. Vent changed to pressure control 60% 20/6 . On tube feed. watery BM. No blood. Pt is spontaneaously opening eyes. Doesn't response to pain stimuli, doesn't follow commands. Awaiting for placement. No fever in 24hrs. Pt kept failing ventilator weaning. Continue to have secretions. 06/12/16 09:22 CCU Objective - Vital Signs / Intake & Output Vital Signs (Last 4 hours): Vital Signs Pulse Resp BP Pulse Ox 06/12/16 07:30 38 H 95 06/12/16 05:00 100 H 123/47 L 98 Intake and Output (Last 8hrs): Intake & Output 06/11/16 06/12/16 06/12/16 22:59 06:59 14:59 Intake Total 270 1010 Output Total 350 1400 Balance -80 -390 Weight 159 lb 14.4 oz Intake: IV 650 Right Internal Jugular 650 Tube Feeding 70 360 Other 200 Output: Urine 350 400 Urethral (Gleason) 350 400 Stool 1000 Other: Voiding Method Indwelling Catheter # Bowel Movements 2 - Physical Exam Head: Positive for: Atraumatic, Normocephalic. Negative for: Ecchymosis Pupils: Positive for: PERRL Conjunctiva: Negative for: Injected, Icteric Mouth: Positive for: Dry Pharnyx: Positive for: Normal. Negative for: ERYTHEMA Nose (Internal): Positive for: Normal Inspection, No Active Bleeding Neck: Positive for: Normal Range of Motion (Tracheostomy in place ) Respiratory/Chest: Positive for: Clear to Auscultation, Good Air Exchange, Other (trach collar in place) Cardiovascular: Positive for: Normal S1, S2, Tachycardic Abdomen: Positive for: Normal Bowel Sounds (post surgical changes ), Hernias, Other (Incision C/D/I). Negative for: Tenderness, Distention, Peritoneal Signs , Rebound, Guarding Rectal: Positive for: Other (Rectal tube) Genitourinary Male: Positive for: Testicle Tenderness, Hernias, Testicle Swelling, Other (Large [id number] R inguinal hernia: irreducible. 10x5cm L inguinal hernia : irreducible.Gleason 1L /24hrs). Negative for: Normal External Genitalia Back: Positive for: Normal Inspection Upper Extremity: Positive for: Edema, Swelling. Negative for: Erythema Lower Extremity: Positive for: Edema, Swelling. Negative for: Cyanosis Skin: Positive for: Warm, Dry Psychiatric: Negative for: Alert, Oriented x 3, Normal Insight - Medications Active Medications: Active Medications Generic Name Dose Route Start Last Admin Trade Name Freq PRN Reason Stop Dose Admin Acetaminophen 650 mg 06/10/16 11:35 06/11/16 10:00 Tylenol 650mg/20.3ml Solution Ud PO 650 mg Q6H PRN Administration Fever >100.4 F Albuterol/Ipratropium 3 ml 05/30/16 14:00 06/12/16 07:37 Duoneb 3 Mg/0.5 Mg (3 Ml) Ud IH 3 ml [id number] SHARIF Administration Heparin Sodium (Porcine) 5,000 units 06/08/16 22:00 06/11/16 22:34 Heparin SC 5,000 units Q12 SHARIF Administration Protocol Metronidazole 100 mls @ 100 mls/hr 05/24/16 08:15 06/12/16 05:32 Flagyl IVPB 100 mls/hr Q8 SHARIF Administration Protocol Vancomycin HCl 1 gm/ Dextrose 250 mls @ 166.667 mls/hr 06/02/16 22:00 06/11/16 22:14 IVPB 166.667 mls/hr Q12 SHARIF Administration Amikacin Sulfate 500 mg/ 102 mls @ 204 mls/hr 06/11/16 14:00 06/12/16 05:41 Sodium Chloride IVPB 204 mls/hr Q8 SHARIF Administration Protocol Potassium Chloride 100 mls @ 50 mls/hr 06/12/16 07:30 Potassium Chloride 20 Meq/100 Ml IVPB 06/12/16 11:29 Q2H SHARIF Insulin Human Lispro 0 units 05/31/16 22:00 06/11/16 22:56 Humalog Med SC Not Given ACHS SHARIF Protocol Lorazepam 2 mg 06/09/16 19:05 06/09/16 19:06 Ativan IVP 2 mg Q4H PRN Administration Anxiety Protocol Metoprolol Tartrate 5 mg 06/12/16 03:45 Lopressor IVP Q4H PRN Heart rate Morphine Sulfate 4 mg 06/08/16 13:49 06/09/16 15:58 Morphine IVP 4 mg Q4H PRN Administration Pain, moderate (4-7) Pantoprazole Sodium 40 mg 06/01/16 10:00 06/11/16 22:34 Protonix Inj IVP 40 mg Q12 SHARIF Administration Vitamin A 1 ea 06/07/16 16:02 06/08/16 09:07 Vitamin A & D Oint Ud Foilpak TOP 1 ea Q12H PRN Administration Apply to dry lips - Patient Studies Lab Studies: Microbiology Studies 06/10/16 12:00 Blood Culture - Preliminary Blood-Venous NO GROWTH AFTER 24 HOURS 06/10/16 11:50 Blood Culture - Preliminary Blood-Venous NO GROWTH AFTER 24 HOURS 06/10/16 11:12 Urine Culture - Final Urine,Gleason No Growth (<1,000 CFU/ML) Lab Studies 06/12/16 06/11/16 06/11/16 Range/Units 05:20 21:28 16:04 WBC 21.3 H (4.5-11.0) 10^3/ul RBC 3.18 L (3.5-6.1) 10^6/uL Hgb 9.0 L (14.0-18.0) gm/dL Hct 28.9 L (42.0-52.0) % MCV 90.9 (80.0-105.0) fL MCH 28.3 (25.0-35.0) pg MCHC 31.1 (31.0-37.0) g/dl RDW 19.3 H (11.5-14.5) % Plt Count 443 (120.0-450.0) 10^3/uL MPV 11.7 H (7.0-11.0) fl Gran % 86.4 H (50.0-68.0) % Lymph % (Auto) 4.0 L (22.0-35.0) % Lucas % (Auto) 8.8 H (1.0-6.0) % Eos % (Auto) 0.8 L (1.5-5.0) % Baso % (Auto) 0.0 (0.0-3.0) % Gran # 18.34 H (1.4-6.5) Lymph # 0.9 L (1.2-3.4) Lucas # 1.9 H (0.1-0.6) Eos # 0.2 (0.0-0.7) Baso # 0.01 (0.0-2.0) K/mm3 Sodium 143 (132-148) mmol/L Potassium 3.5 L (3.6-5.0) mmol/L Chloride 106 (98-107) mmol/L Carbon Dioxide 31 (21-33) mmol/L Anion Gap 10 (10-20) BUN 14 (7-21) mg/dL Creatinine 0.6 (0.5-1.4) mg/dL Est GFR ( Amer) > 60 Est GFR (Non-Af Amer) > 60 POC Glucose (mg/dL) 101 103 (65-110) mg/dL Random Glucose 108 (70-110) mg/dL Calcium 7.2 L (8.4-10.5) mg/dL Total Bilirubin 0.6 (0.2-1.3) mg/dL AST 62 H (15-59) U/L ALT 34 (7-56) U/L Alkaline Phosphatase 161 H (38-133) U/L Total Protein 5.3 L (5.8-8.3) g/dL Albumin 1.9 L (3.0-4.8) g/dL Globulin 3.4 gm/dL Albumin/Globulin Ratio 0.6 L (1.1-1.8) Crossmatch 06/11/16 06/11/16 06/10/16 Range/Units 11:20 07:26 21:33 WBC (4.5-11.0) 10^3/ul RBC (3.5-6.1) 10^6/uL Hgb (14.0-18.0) gm/dL Hct (42.0-52.0) % MCV (80.0-105.0) fL MCH (25.0-35.0) pg MCHC (31.0-37.0) g/dl RDW (11.5-14.5) % Plt Count (120.0-450.0) 10^3/uL MPV (7.0-11.0) fl Gran % (50.0-68.0) % Lymph % (Auto) (22.0-35.0) % Lucas % (Auto) (1.0-6.0) % Eos % (Auto) (1.5-5.0) % Baso % (Auto) (0.0-3.0) % Gran # (1.4-6.5) Lymph # (1.2-3.4) Lucas # (0.1-0.6) Eos # (0.0-0.7) Baso # (0.0-2.0) K/mm3 Sodium (132-148) mmol/L Potassium (3.6-5.0) mmol/L Chloride (98-107) mmol/L Carbon Dioxide (21-33) mmol/L Anion Gap (10-20) BUN (7-21) mg/dL Creatinine (0.5-1.4) mg/dL Est GFR ( Amer) Est GFR (Non-Af Amer) POC Glucose (mg/dL) 128 H 83 130 H (65-110) mg/dL Random Glucose (70-110) mg/dL Calcium (8.4-10.5) mg/dL Total Bilirubin (0.2-1.3) mg/dL AST (15-59) U/L ALT (7-56) U/L Alkaline Phosphatase (38-133) U/L Total Protein (5.8-8.3) g/dL Albumin (3.0-4.8) g/dL Globulin gm/dL Albumin/Globulin Ratio (1.1-1.8) Crossmatch 06/10/16 06/10/16 06/09/16 Range/Units 11:12 07:14 22:07 WBC (4.5-11.0) 10^3/ul RBC (3.5-6.1) 10^6/uL Hgb (14.0-18.0) gm/dL Hct (42.0-52.0) % MCV (80.0-105.0) fL MCH (25.0-35.0) pg MCHC (31.0-37.0) g/dl RDW (11.5-14.5) % Plt Count (120.0-450.0) 10^3/uL MPV (7.0-11.0) fl Gran % (50.0-68.0) % Lymph % (Auto) (22.0-35.0) % Lucas % (Auto) (1.0-6.0) % Eos % (Auto) (1.5-5.0) % Baso % (Auto) (0.0-3.0) % Gran # (1.4-6.5) Lymph # (1.2-3.4) Lucas # (0.1-0.6) Eos # (0.0-0.7) Baso # (0.0-2.0) K/mm3 Sodium (132-148) mmol/L Potassium (3.6-5.0) mmol/L Chloride (98-107) mmol/L Carbon Dioxide (21-33) mmol/L Anion Gap (10-20) BUN (7-21) mg/dL Creatinine (0.5-1.4) mg/dL Est GFR ( Amer) Est GFR (Non-Af Amer) POC Glucose (mg/dL) 149 H 95 120 H (65-110) mg/dL Random Glucose (70-110) mg/dL Calcium (8.4-10.5) mg/dL Total Bilirubin (0.2-1.3) mg/dL AST (15-59) U/L ALT (7-56) U/L Alkaline Phosphatase (38-133) U/L Total Protein (5.8-8.3) g/dL Albumin (3.0-4.8) g/dL Globulin gm/dL Albumin/Globulin Ratio (1.1-1.8) Crossmatch 06/09/16 06/07/16 Range/Units 16:23 20:40 WBC (4.5-11.0) 10^3/ul RBC (3.5-6.1) 10^6/uL Hgb (14.0-18.0) gm/dL Hct (42.0-52.0) % MCV (80.0-105.0) fL MCH (25.0-35.0) pg MCHC (31.0-37.0) g/dl RDW (11.5-14.5) % Plt Count (120.0-450.0) 10^3/uL MPV (7.0-11.0) fl Gran % (50.0-68.0) % Lymph % (Auto) (22.0-35.0) % Lucas % (Auto) (1.0-6.0) % Eos % (Auto) (1.5-5.0) % Baso % (Auto) (0.0-3.0) % Gran # (1.4-6.5) Lymph # (1.2-3.4) Lucas # (0.1-0.6) Eos # (0.0-0.7) Baso # (0.0-2.0) K/mm3 Sodium (132-148) mmol/L Potassium (3.6-5.0) mmol/L Chloride (98-107) mmol/L Carbon Dioxide (21-33) mmol/L Anion Gap (10-20) BUN (7-21) mg/dL Creatinine (0.5-1.4) mg/dL Est GFR ( Amer) Est GFR (Non-Af Amer) POC Glucose (mg/dL) 119 H (65-110) mg/dL Random Glucose (70-110) mg/dL Calcium (8.4-10.5) mg/dL Total Bilirubin (0.2-1.3) mg/dL AST (15-59) U/L ALT (7-56) U/L Alkaline Phosphatase (38-133) U/L Total Protein (5.8-8.3) g/dL Albumin (3.0-4.8) g/dL Globulin gm/dL Albumin/Globulin Ratio (1.1-1.8) Crossmatch See Detail Laboratory Results - last 24 hr 06/07/16 06/09/16 06/09/16 20:40 16:23 22:07 WBC RBC Hgb Hct MCV MCH MCHC RDW Plt Count MPV Gran % Lymph % (Auto) Lucas % (Auto) Eos % (Auto) Baso % (Auto) Gran # Lymph # Lucas # Eos # Baso # Sodium Potassium Chloride Carbon Dioxide Anion Gap BUN Creatinine Est GFR ( Amer) Est GFR (Non-Af Amer) POC Glucose (mg/dL) 119 H 120 H Random Glucose Calcium Total Bilirubin AST ALT Alkaline Phosphatase Total Protein Albumin Globulin Albumin/Globulin Ratio Crossmatch See Detail 06/10/16 06/10/16 06/10/16 07:14 11:12 21:33 WBC RBC Hgb Hct MCV MCH MCHC RDW Plt Count MPV Gran % Lymph % (Auto) Lucas % (Auto) Eos % (Auto) Baso % (Auto) Gran # Lymph # Lucas # Eos # Baso # Sodium Potassium Chloride Carbon Dioxide Anion Gap BUN Creatinine Est GFR ( Amer) Est GFR (Non-Af Amer) POC Glucose (mg/dL) 95 149 H 130 H Random Glucose Calcium Total Bilirubin AST ALT Alkaline Phosphatase Total Protein Albumin Globulin Albumin/Globulin Ratio Crossmatch 06/11/16 06/11/16 06/11/16 07:26 11:20 16:04 WBC RBC Hgb Hct MCV MCH MCHC RDW Plt Count MPV Gran % Lymph % (Auto) Lucas % (Auto) Eos % (Auto) Baso % (Auto) Gran # Lymph # Lucas # Eos # Baso # Sodium Potassium Chloride Carbon Dioxide Anion Gap BUN Creatinine Est GFR ( Amer) Est GFR (Non-Af Amer) POC Glucose (mg/dL) 83 128 H 103 Random Glucose Calcium Total Bilirubin AST ALT Alkaline Phosphatase Total Protein Albumin Globulin Albumin/Globulin Ratio Crossmatch 06/11/16 06/12/16 21:28 05:20 WBC 21.3 H RBC 3.18 L Hgb 9.0 L Hct 28.9 L MCV 90.9 MCH 28.3 MCHC 31.1 RDW 19.3 H Plt Count 443 MPV 11.7 H Gran % 86.4 H Lymph % (Auto) 4.0 L Lucas % (Auto) 8.8 H Eos % (Auto) 0.8 L Baso % (Auto) 0.0 Gran # 18.34 H Lymph # 0.9 L Lucas # 1.9 H Eos # 0.2 Baso # 0.01 Sodium 143 Potassium 3.5 L Chloride 106 Carbon Dioxide 31 Anion Gap 10 BUN 14 Creatinine 0.6 Est GFR ( Amer) > 60 Est GFR (Non-Af Amer) > 60 POC Glucose (mg/dL) 101 Random Glucose 108 Calcium 7.2 L Total Bilirubin 0.6 AST 62 H ALT 34 Alkaline Phosphatase 161 H Total Protein 5.3 L Albumin 1.9 L Globulin 3.4 Albumin/Globulin Ratio 0.6 L Crossmatch Fingerstick Blood Sugar Results: 101 Review of Systems - Review of Systems Systems not reviewed;Unavailable: Altered Mental Status Critical Care Progress Note - Ventilator Checklist Head of Bed 30 Degrees: Yes Daily Sedation Vacation: No Daily Assessment of Readiness to Wean: Yes Assessment/Plan - Assessment and Plan (Free Text) Assessment: The patient is a 66 year old man with a history of developmental delay, iron deficiency anemia, and degenerative arthritis who was admitted to [facility] on with bilateral, non-reducible inguinal hernias and a CT-scan showing a large cecal mass, concerning for malignancy. As a result, he underwent an exploratory laparotomy and right hemicolectomy (with pathology of cecal mass still pending) . Because of the hemicolectomy, and the large size of the patients bilateral inguinal hernias could not be repaired during the procedure. Post-operatively, the patient developed marked leukocytosis. The CT scan shows an incarcerated right hernia sac with secondary small bowel obstruction, which general surgery manually reduced but reccuring. The bleeding scan shows active bleeding most likely from the sigmoid colon. Bleeding resolved. Hypoxic respiratory failure ventilator dependent 2/2 aspiration pneumonia and ARDS Toxic metabolic encephalopathy Hemorrhagic shock 2/2 GI bleed: resolved. off pressors POD4 s/p Trach and gastrostomy tube Neuro: Improved responsiveness AAO x0 Mental Retardation Maintain normothermia EEG: Severe bihemispheric cerebral dysfunction CT: Old ischemia -Morphine PRN-Atjivan PRN -off sedation: Precedex Neuro following CV: Hemodynamically stable: Off pressors Maintain MAP >65 Lopressor Pulm: Able to withstand PS sbt trial x 90 minutes. CXR : b/l infiltration Maintain Sp02>90 Plateau pressure <30 PaO2 >55% ABX per ID Duoneb Wean vent : On Daily SBT trials GI: Colon CA: S/P R nimo for SBO and cecal mass: Path-Invasive adenoCA of colon 4x5cm T3N0 Bloody BM: resolved, billious diarrhea now. Tube feed Protonix IV 40mg ok to resume PO meds hepatin sub Q GI on board Heme: 6 PRBC given WBC 21.3 today trending down Transfuse if Hgb <8 Heme/Onc consult for Colon CA persistent leukocytosis Renal/: Urine output 1L /24hrs. 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 Amikacin/Vanc/Merrem ID on board f/u cx Endo: Accucheck q2 Maintain euglycemia GI ppx: PTX DVT ppx: SCDs, sub Q hep Disposition: Likely LTAC. Contact family for possible DNR Case seen, reviewed and discussed with attending <Herbie Zepeda MD H - Last Filed: 06/12/16 11:03> CCU Objective - Vital Signs / Intake & Output Vital Signs (Last 4 hours): Vital Signs Temp Resp Pulse Ox 06/12/16 08:00 99.9 F H 06/12/16 07:30 38 H 95 Intake and Output (Last 8hrs): Intake & Output 06/11/16 06/12/16 06/12/16 22:59 06:59 14:59 Intake Total 270 1010 Output Total 350 1400 Balance -80 -390 Weight 159 lb 14.4 oz Intake: IV 650 Right Internal Jugular 650 Tube Feeding 70 360 Other 200 Output: Urine 350 400 Urethral (Gleason) 350 400 Stool 1000 Other: Voiding Method Indwelling Catheter # Bowel Movements 2 - Medications Active Medications: Active Medications Generic Name Dose Route Start Last Admin Trade Name Freq PRN Reason Stop Dose Admin Acetaminophen 650 mg 06/10/16 11:35 06/12/16 08:54 Tylenol 650mg/20.3ml Solution Ud PO 650 mg Q6H PRN Administration Fever >100.4 F Albuterol/Ipratropium 3 ml 05/30/16 14:00 06/12/16 07:37 Duoneb 3 Mg/0.5 Mg (3 Ml) Ud IH 3 ml [id number] SHARIF Administration Heparin Sodium (Porcine) 5,000 units 06/08/16 22:00 06/12/16 09:50 Heparin SC 5,000 units Q12 SHARIF Administration Protocol Hydromorphone HCl 0.5 mg 06/12/16 09:34 Dilaudid IVP Q4H PRN Agitation Metronidazole 100 mls @ 100 mls/hr 05/24/16 08:15 06/12/16 05:32 Flagyl IVPB 100 mls/hr Q8 SHARIF Administration Protocol Vancomycin HCl 1 gm/ Dextrose 250 mls @ 166.667 mls/hr 06/02/16 22:00 06/12/16 09:45 IVPB 166.667 mls/hr Q12 SHARIF Administration Amikacin Sulfate 500 mg/ 102 mls @ 204 mls/hr 06/11/16 14:00 06/12/16 05:41 Sodium Chloride IVPB 204 mls/hr Q8 SHARIF Administration Protocol Potassium Chloride 100 mls @ 50 mls/hr 06/12/16 07:30 06/12/16 08:15 Potassium Chloride 20 Meq/100 Ml IVPB 06/12/16 11:29 50 mls/hr Q2H SHARIF Administration Insulin Human Lispro 0 units 05/31/16 22:00 06/12/16 08:10 Humalog Med SC Not Given ACHS SHARIF Protocol Lorazepam 2 mg 06/09/16 19:05 06/09/16 19:06 Ativan IVP 2 mg Q4H PRN Administration Anxiety Protocol Metoprolol Tartrate 5 mg 06/12/16 03:45 Lopressor IVP Q4H PRN Heart rate Morphine Sulfate 4 mg 06/08/16 13:49 06/12/16 08:54 Morphine IVP 4 mg Q4H PRN Administration Pain, moderate (4-7) Pantoprazole Sodium 40 mg 06/01/16 10:00 06/12/16 09:48 Protonix Inj IVP 40 mg Q12 SHARIF Administration Vitamin A 1 ea 06/07/16 16:02 06/08/16 09:07 Vitamin A & D Oint Ud Foilpak TOP 1 ea Q12H PRN Administration Apply to dry lips - Patient Studies Lab Studies: Microbiology Studies 06/10/16 11:00 C. difficile Antigen & Toxin A,B (M - Final Stool 06/10/16 12:00 Blood Culture - Preliminary Blood-Venous NO GROWTH AFTER 24 HOURS 06/10/16 11:50 Blood Culture - Preliminary Blood-Venous NO GROWTH AFTER 24 HOURS 06/10/16 11:12 Urine Culture - Final Urine,Gleason No Growth (<1,000 CFU/ML) Lab Studies 06/12/16 06/11/16 06/11/16 Range/Units 05:20 21:28 16:04 WBC 21.3 H (4.5-11.0) 10^3/ul RBC 3.18 L (3.5-6.1) 10^6/uL Hgb 9.0 L (14.0-18.0) gm/dL Hct 28.9 L (42.0-52.0) % MCV 90.9 (80.0-105.0) fL MCH 28.3 (25.0-35.0) pg MCHC 31.1 (31.0-37.0) g/dl RDW 19.3 H (11.5-14.5) % Plt Count 443 (120.0-450.0) 10^3/uL MPV 11.7 H (7.0-11.0) fl Gran % 86.4 H (50.0-68.0) % Lymph % (Auto) 4.0 L (22.0-35.0) % Lucas % (Auto) 8.8 H (1.0-6.0) % Eos % (Auto) 0.8 L (1.5-5.0) % Baso % (Auto) 0.0 (0.0-3.0) % Gran # 18.34 H (1.4-6.5) Lymph # 0.9 L (1.2-3.4) Lucas # 1.9 H (0.1-0.6) Eos # 0.2 (0.0-0.7) Baso # 0.01 (0.0-2.0) K/mm3 Sodium 143 (132-148) mmol/L Potassium 3.5 L (3.6-5.0) mmol/L Chloride 106 (98-107) mmol/L Carbon Dioxide 31 (21-33) mmol/L Anion Gap 10 (10-20) BUN 14 (7-21) mg/dL Creatinine 0.6 (0.5-1.4) mg/dL Est GFR ( Amer) > 60 Est GFR (Non-Af Amer) > 60 POC Glucose (mg/dL) 101 103 (65-110) mg/dL Random Glucose 108 (70-110) mg/dL Calcium 7.2 L (8.4-10.5) mg/dL Total Bilirubin 0.6 (0.2-1.3) mg/dL AST 62 H (15-59) U/L ALT 34 (7-56) U/L Alkaline Phosphatase 161 H (38-133) U/L Total Protein 5.3 L (5.8-8.3) g/dL Albumin 1.9 L (3.0-4.8) g/dL Globulin 3.4 gm/dL Albumin/Globulin Ratio 0.6 L (1.1-1.8) 03/26/17 03/26/17 03/25/17 Range/Units 11:20 07:26 21:33 WBC (4.5-11.0) 10^3/ul RBC (3.5-6.1) 10^6/uL Hgb (14.0-18.0) gm/dL Hct (42.0-52.0) % MCV (80.0-105.0) fL MCH (25.0-35.0) pg MCHC (31.0-37.0) g/dl RDW (11.5-14.5) % Plt Count (120.0-450.0) 10^3/uL MPV (7.0-11.0) fl Gran % (50.0-68.0) % Lymph % (Auto) (22.0-35.0) % Lucas % (Auto) (1.0-6.0) % Eos % (Auto) (1.5-5.0) % Baso % (Auto) (0.0-3.0) % Gran # (1.4-6.5) Lymph # (1.2-3.4) Lucas # (0.1-0.6) Eos # (0.0-0.7) Baso # (0.0-2.0) K/mm3 Sodium (132-148) mmol/L Potassium (3.6-5.0) mmol/L Chloride (98-107) mmol/L Carbon Dioxide (21-33) mmol/L Anion Gap (10-20) BUN (7-21) mg/dL Creatinine (0.5-1.4) mg/dL Est GFR ( Amer) Est GFR (Non-Af Amer) POC Glucose (mg/dL) 128 H 83 130 H (65-110) mg/dL Random Glucose (70-110) mg/dL Calcium (8.4-10.5) mg/dL Total Bilirubin (0.2-1.3) mg/dL AST (15-59) U/L ALT (7-56) U/L Alkaline Phosphatase (38-133) U/L Total Protein (5.8-8.3) g/dL Albumin (3.0-4.8) g/dL Globulin gm/dL Albumin/Globulin Ratio (1.1-1.8) 06/10/16 06/10/16 06/09/16 Range/Units 11:12 07:14 22:07 WBC (4.5-11.0) 10^3/ul RBC (3.5-6.1) 10^6/uL Hgb (14.0-18.0) gm/dL Hct (42.0-52.0) % MCV (80.0-105.0) fL MCH (25.0-35.0) pg MCHC (31.0-37.0) g/dl RDW (11.5-14.5) % Plt Count (120.0-450.0) 10^3/uL MPV (7.0-11.0) fl Gran % (50.0-68.0) % Lymph % (Auto) (22.0-35.0) % Lucas % (Auto) (1.0-6.0) % Eos % (Auto) (1.5-5.0) % Baso % (Auto) (0.0-3.0) % Gran # (1.4-6.5) Lymph # (1.2-3.4) Lucas # (0.1-0.6) Eos # (0.0-0.7) Baso # (0.0-2.0) K/mm3 Sodium (132-148) mmol/L Potassium (3.6-5.0) mmol/L Chloride (98-107) mmol/L Carbon Dioxide (21-33) mmol/L Anion Gap (10-20) BUN (7-21) mg/dL Creatinine (0.5-1.4) mg/dL Est GFR ( Amer) Est GFR (Non-Af Amer) POC Glucose (mg/dL) 149 H 95 120 H (65-110) mg/dL Random Glucose (70-110) mg/dL Calcium (8.4-10.5) mg/dL Total Bilirubin (0.2-1.3) mg/dL AST (15-59) U/L ALT (7-56) U/L Alkaline Phosphatase (38-133) U/L Total Protein (5.8-8.3) g/dL Albumin (3.0-4.8) g/dL Globulin gm/dL Albumin/Globulin Ratio (1.1-1.8) 06/09/ Range/Units 16:23 WBC (4.5-11.0) 10^3/ul RBC (3.5-6.1) 10^6/uL Hgb (14.0-18.0) gm/dL Hct (42.0-52.0) % MCV (80.0-105.0) fL MCH (25.0-35.0) pg MCHC (31.0-37.0) g/dl RDW (11.5-14.5) % Plt Count (120.0-450.0) 10^3/uL MPV (7.0-11.0) fl Gran % (50.0-68.0) % Lymph % (Auto) (22.0-35.0) % Lucas % (Auto) (1.0-6.0) % Eos % (Auto) (1.5-5.0) % Baso % (Auto) (0.0-3.0) % Gran # (1.4-6.5) Lymph # (1.2-3.4) Lucas # (0.1-0.6) Eos # (0.0-0.7) Baso # (0.0-2.0) K/mm3 Sodium (132-148) mmol/L Potassium (3.6-5.0) mmol/L Chloride (98-107) mmol/L Carbon Dioxide (21-33) mmol/L Anion Gap (10-20) BUN (7-21) mg/dL Creatinine (0.5-1.4) mg/dL Est GFR ( Amer) Est GFR (Non-Af Amer) POC Glucose (mg/dL) 119 H (65-110) mg/dL Random Glucose (70-110) mg/dL Calcium (8.4-10.5) mg/dL Total Bilirubin (0.2-1.3) mg/dL AST (15-59) U/L ALT (7-56) U/L Alkaline Phosphatase (38-133) U/L Total Protein (5.8-8.3) g/dL Albumin (3.0-4.8) g/dL Globulin gm/dL Albumin/Globulin Ratio (1.1-1.8) Laboratory Results - last 24 hr 06/09/16 06/09/16 06/10/16 16:23 22:07 07:14 WBC RBC Hgb Hct MCV MCH MCHC RDW Plt Count MPV Gran % Lymph % (Auto) Lucas % (Auto) Eos % (Auto) Baso % (Auto) Gran # Lymph # Lucas # Eos # Baso # Sodium Potassium Chloride Carbon Dioxide Anion Gap BUN Creatinine Est GFR ( Amer) Est GFR (Non-Af Amer) POC Glucose (mg/dL) 119 H 120 H 95 Random Glucose Calcium Total Bilirubin AST ALT Alkaline Phosphatase Total Protein Albumin Globulin Albumin/Globulin Ratio 06/10/16 06/10/16 06/11/16 11:12 21:33 07:26 WBC RBC Hgb Hct MCV MCH MCHC RDW Plt Count MPV Gran % Lymph % (Auto) Lucas % (Auto) Eos % (Auto) Baso % (Auto) Gran # Lymph # Lucas # Eos # Baso # Sodium Potassium Chloride Carbon Dioxide Anion Gap BUN Creatinine Est GFR ( Amer) Est GFR (Non-Af Amer) POC Glucose (mg/dL) 149 H 130 H 83 Random Glucose Calcium Total Bilirubin AST ALT Alkaline Phosphatase Total Protein Albumin Globulin Albumin/Globulin Ratio 06/11/16 06/11/16 06/11/16 11:20 16:04 21:28 WBC RBC Hgb Hct MCV MCH MCHC RDW Plt Count MPV Gran % Lymph % (Auto) Lucas % (Auto) Eos % (Auto) Baso % (Auto) Gran # Lymph # Lucas # Eos # Baso # Sodium Potassium Chloride Carbon Dioxide Anion Gap BUN Creatinine Est GFR ( Amer) Est GFR (Non-Af Amer) POC Glucose (mg/dL) 128 H 103 101 Random Glucose Calcium Total Bilirubin AST ALT Alkaline Phosphatase Total Protein Albumin Globulin Albumin/Globulin Ratio 06/12/16 05:20 WBC 21.3 H RBC 3.18 L Hgb 9.0 L Hct 28.9 L MCV 90.9 MCH 28.3 MCHC 31.1 RDW 19.3 H Plt Count 443 MPV 11.7 H Gran % 86.4 H Lymph % (Auto) 4.0 L Lucas % (Auto) 8.8 H Eos % (Auto) 0.8 L Baso % (Auto) 0.0 Gran # 18.34 H Lymph # 0.9 L Lucas # 1.9 H Eos # 0.2 Baso # 0.01 Sodium 143 Potassium 3.5 L Chloride 106 Carbon Dioxide 31 Anion Gap 10 BUN 14 Creatinine 0.6 Est GFR ( Amer) > 60 Est GFR (Non-Af Amer) > 60 POC Glucose (mg/dL) Random Glucose 108 Calcium 7.2 L Total Bilirubin 0.6 AST 62 H ALT 34 Alkaline Phosphatase 161 H Total Protein 5.3 L Albumin 1.9 L Globulin 3.4 Albumin/Globulin Ratio 0.6 L Attending/Attestation - Attestation I have personally seen and examined this patient.: Yes I have fully participated in the care of the patient.: Yes I have reviewed all pertinent clinical information: Yes Notes (Text): 06/12/16 11:00 Resolved septic Shock and ARDS S/P trachesotomy and PEG placement S/P abdominal surgery for Colon adenocarcinoma On multiple abx due to recent fever spikes, despite negative blood cx's.Need to follow adverse effects of ABX. I.D following patient Daily SBT trilas done , today patient was unstable and not able to participate. Had to be given pain/ sedation medications. No future surgical plans. Continuing PEG feeds. Awaiting [facility] placement from social work and awaiting POA to make further decisions. cc time 45 min
[2016-06-12] MEDS: Potassium Chloride 20 mEq 100 ML IVPB SCH ×2 (08:15→12:26)
[2016-06-12] MEDS: Morphine 4 mg/ml ISec IVP PRN (08:54)
[2016-06-12] MEDS: Acetaminophen 650mg/20.3ml solution UD PO PRN (08:54)
[2016-06-12] MEDS ORDERED: HYDROmorphone 0.5 mg/0.5 ml ISec IVP PRN (09:34)
[2016-06-12] MEDS: Vancomycin 1 GM in Dextrose 5% In Water 250 ML IVPB SCH ×2 (09:45→21:23)
--- NOTE | 2016-06-12 09:52 | CP.PCM.PN ---
Subjective - Date & Time of Evaluation Date of Evaluation: 06/12/16 Time of Evaluation: 09:47 - Subjective Subjective: SURGICAL PROGRESS NOTE FOR DR. HERBERT Pt is seen & examined at bedside. No acute events overnight. Trach and Gleason in place. Patient is retracting to pain. Objective - Vital Signs/Intake and Output Vital Signs (last 24 hours): Temp Pulse Resp BP Pulse Ox 99.9 F H 126 H 38 H 141/63 95 06/12/16 08:00 06/12/16 07:00 06/12/16 07:30 06/12/16 07:00 06/12/16 07:30 Intake and Output: 06/12/16 06/12/16 06:59 18:59 Intake Total 1010 Output Total 1400 Balance -390 - Medications Medications: Current Medications Acetaminophen (Tylenol 650mg/20.3ml Solution Ud) 650 mg PO Q6H PRN PRN Reason: Fever >100.4 F Last Admin: 06/12/16 08:54 Dose: 650 mg Albuterol/Ipratropium (Duoneb 3 Mg/0.5 Mg (3 Ml) Ud) 3 ml IH [id number] SHARIF Last Admin: 06/12/16 07:37 Dose: 3 ml Heparin Sodium (Porcine) (Heparin) 5,000 units SC Q12 SHARIF PRN Reason: Protocol Last Admin: 06/11/16 22:34 Dose: 5,000 units Hydromorphone HCl (Dilaudid) 0.5 mg IVP Q4H PRN PRN Reason: Agitation Metronidazole (Flagyl) 100 mls @ 100 mls/hr IVPB Q8 SHARIF PRN Reason: Protocol Last Admin: 06/12/16 05:32 Dose: 100 mls/hr Vancomycin HCl 1 gm/ Dextrose 250 mls @ 166.667 mls/hr IVPB Q12 SHARIF Last Admin: 06/11/16 22:14 Dose: 166.667 mls/hr Amikacin Sulfate 500 mg/ (Sodium Chloride) 102 mls @ 204 mls/hr IVPB Q8 SHARIF PRN Reason: Protocol Last Admin: 06/12/16 05:41 Dose: 204 mls/hr Potassium Chloride (Potassium Chloride 20 Meq/100 Ml) 100 mls @ 50 mls/hr IVPB Q2H SHARIF Stop: 06/12/16 11:29 Last Admin: 06/12/16 08:15 Dose: 50 mls/hr Insulin Human Lispro (Humalog Med) 0 units SC ACHS SHARIF PRN Reason: Protocol Last Admin: 06/12/16 08:10 Dose: Not Given Lorazepam (Ativan) 2 mg IVP Q4H PRN; Protocol PRN Reason: Anxiety Last Admin: 06/09/16 19:06 Dose: 2 mg Metoprolol Tartrate (Lopressor) 5 mg IVP Q4H PRN PRN Reason: Heart rate Morphine Sulfate (Morphine) 4 mg IVP Q4H PRN PRN Reason: Pain, moderate (4-7) Last Admin: 06/12/16 08:54 Dose: 4 mg Pantoprazole Sodium (Protonix Inj) 40 mg IVP Q12 SHARIF Last Admin: 06/11/16 22:34 Dose: 40 mg Vitamin A (Vitamin A & D Oint Ud Foilpak) 1 ea TOP Q12H PRN PRN Reason: Apply to dry lips Last Admin: 06/08/16 09:07 Dose: 1 ea - Labs Labs: 06/12/16 05:20 06/12/16 05:20 PT 15.4 Seconds (9.9-11.8) H 06/08/16 08:18 INR 1.43 (0.93-1.08) H 06/08/16 08:18 APTT 31.8 Seconds (23.7-30.8) H 06/08/16 08:18 - Constitutional Appears: Non-toxic, No Acute Distress - Respiratory Exam Respiratory Exam: absent: Accessory Muscle Use, Respiratory Distress - GI/Abdominal Exam GI & Abdominal Exam: Soft. absent: Firm, Rigid Additional comments: B/L inguinal hernia noted - Neurological Exam Neurological Exam: Alert, Awake, Oriented x3 - Psychiatric Exam Psychiatric exam: Normal Affect, Normal Mood - Skin Skin Exam: Dry, Intact, Normal Color, Warm Assessment and Plan - Assessment and Plan (Free Text) Assessment: 86M w. cecal mass, s/p ex-lap w. R hemicolectomy, POD#20 and trach and gastrostomy tube placement, POD#4 -Path: adenocarcinoma -Post-op bleed likely at anastomosis site, resolved -continue Tube feeds -trach, remove sutures POD#10 -c/w current medical management -will d/w attending -Consider LTAC placement -No further surgical intervention at this time Will discuss with attending Dr. Herbert for further recs. Jyoti Griffin PGY1
[2016-06-12 11:10] LABS: ARTERIAL BLOOD GAS HCO3 31.3 mmol/L (21-28); ARTERIAL BLOOD GAS O2 CAPACITY 11.2 mL/dl (16-24); ARTERIAL BLOOD GAS O2 CONTENT 11.1 ML/dl (15-23); ARTERIAL BLOOD GAS PH 7.45 (7.35-7.45); ARTERIAL BLOOD HGB O2 SAT 97.1 % (95.0-98.0); CARBOXYHEMOGLOBIN 1.6 % (0.5-1.5); HHB 0.8 % (0-5); METHEMOGLOBIN 0.6 % (0.0-3.0)
--- NOTE | 2016-06-12 11:24 | PN ---
DATE: 06/12/2016 HISTORY: Seen and examined at the bedside. The patient is status post trach, on vent. Also, PEG wi th Pulmocare at 30 mL an hour. No reports of any high residuals, with watery BMs. No reports of ove rt GI bleed. The patient is not tolerating vent weaning. VITAL SIGNS: Temperature is 99.9, blood pressure is 141/63, pulse 110, oxygen saturation 95%. LABORATORY DATA: Today, WBC is 21.3, H and H is 9.0 and 28.9, platelets of 443. Sodium 143, K is 3. 5, BUN 14, creatinine is 0.6. Total bilirubin is 0.6, AST 62, ALT 34, alkaline phosphatase is 161. PHYSICAL EXAMINATION: HEENT: Sclerae anicteric. NECK: Supple. CARDIAC: S1, S2. NECK: Positive tracheostomy. LUNGS: Decreased breath sounds, with positive air entry bilaterally. ABDOMEN: Bowel sounds positive. PEG tube in place. Insertion site is dry and intact. GENITOURINARY: Positive right inguinal scrotal hernia. 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 PLAN: The patient is on IV antibiotics as per ID. She is also on DVT prophylaxis, heparin q. 12. C ontinue PPI on Protonix 40 q. 12. If hypokalemic can receive potassium replacement. The patient is awaiting placement. Seen and discussed with Dr. Luna, who is covering rounds. Henrietta KIRBY cc: [id number] TT: 06/12/2016 11:23:32 Confirmation # [id number] Dictation # [id number] jn
--- NOTE | 2016-06-12 12:27 | PN ---
DATE: 06/12/2016 INTENSIVE CARE PROGRESS NOTE This 86-year-old male was examined at his bedside in ICU, bed 1. Case was reviewed with his nurse, Yoana. The patient remains vent-dependent. He has failed weaning trials. He has a tracheostomy in place and a surgically-placed PEG tube as well. The patient remains unresponsive to verbal or noxious stimuli and is being followed for toxic metabolic encephalopathy. He is in a normal sinus rhythm on the monitor. PHYSICAL EXAMINATION: VITAL SIGNS: Temperature 98.9, respirations 30, pulse 92, blood pressure 114/ 52 with an FiO2 of 60%, PEEP of 6, and O2 saturation of 97%. I's and O's are 1010 mL in and 1400 mL out so far today. HEAD: Normocephalic, atraumatic. EYES: No icterus. NECK: Supple. HEART: Regular S1, S2. LUNGS: With occasional rhonchi. ABDOMEN: Soft. PEG tube in place. VASCULAR: Legs are warm to touch. He is wearing anti-embolism SCD stockings. SKIN: Without rash. NEUROLOGIC: Unresponsive. PSYCHOLOGIC: Unresponsive. SCROTUM: Bilateral inguinal hernias. LABORATORY DATA: White count 21,300, hemoglobin 9, hematocrit 28.9, platelets 443,000. Sodium 143, K 3.5, chloride 106, bicarb 31. BUN 14, creatinine 0.6. Random blood sugar was 108. Bilirubin 0.6, AST 62, ALT 34, alk phos 161. IMPRESSION: An 86-year-old male status post right hemicolectomy for adenocarcinoma of the cecum with postoperative complication of gastrointestinal bleeding, presumed secondary to the anastomotic site, as well as stress gastritis and aspiration pneumonia, respiratory failure, and acute respiratory distress syndrome, also with comorbidities of leukocytosis, anemia, sepsis, toxic metabolic encephalopathy, failure to wean from the vent and stress gastritis. PLAN: The patient continues on IV antibiotics under the direction of Dr. Fuentes Victoria including IV amikacin, IV Flagyl, and IV vancomycin - dose and duration decided by Dr. Victoria. The patient continues on duo nebulizer therapy, pulmonary toiletry, heparin 5000 units subQ q. 12 as per surgery, insulin coverage a.c. meals and at bedtime, PEG tube feeds with Jevity at 30 mL per hour , being adjusted as tolerated, as well as PEG tube water flushes with aspiration precautions. He also continues on IV Protonix. He is scheduled for serial labs. He has failed all weaning trials to date. He remains on aspiration precautions and fall precautions. He is wearing anti-embolism stockings and having skin care and sequential compression device anti-embolism support stockings, bedside physical therapy for range of motion, and social service is attempting to place this patient in a vent rehab. Unfortunately, no family member can be reached regarding further discussion of his case, care, and code status, and he remains a full code as a result of the above and his previous wishes on his advanced directives in the past. Overall prognosis is poor. Codi Pringle MD cc: [phone] TT: 06/12/2016 12:26:33 Confirmation # [id number] Dictation # [id number] jn MTDD
--- NOTE | 2016-06-12 18:31 | CP.PCM.PN ---
Subjective - Date & Time of Evaluation Date of Evaluation: 06/12/16 Time of Evaluation: 18:00 - Subjective Subjective: Infectious Disease Follow Up: June 12, 2016 85 yo male with initial presentation for abdominal pain and abnormal CT scan sent from [facility] facility (I think [facility] [place]). 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 Currently the patient appears comfortable. He is unable to give any relevant information due to a severe developmental delay. Patient has been displaying increased leukocytosis since the surgery. Patient himself is intubated and ventilated. At best, he open his eyes spontaneously but make no meaningful interactions. 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 He has been in the MICU for over 2 weeks. He remains intubated and ventilated. The patient received tracheotomy and PEG placement. Patient has an extremely poor prognosis. There has been no improvement of the patient's mental status over the past few days. The patient has been essentially non-responsive. Still very high leukocytosis. Multiple potential reasons for increased leukocytosis including high dose steroids. On the whole, the patient was afebrile and stable respiratory sigala. Mentally no improvement at all. Currently off pressors. Poorly responsive. Very poor prognosis. Remains intubated and ventilated. Attempts to wean off ventilator. Mentally, no improvement. No family available. Occasionally open eyes but no meaningful interaction. Afebrile the past 24 hours. Recultured - but no growth in the past 24-48 hours. Stopped Meropenem and Started Amikacin yesterday. Objective - Vital Signs/Intake and Output Vital Signs (last 24 hours): Temp Pulse Resp BP Pulse Ox 97.8 F 99 H 38 H 109/53 L 98 06/12/16 16:00 06/12/16 12:32 06/12/16 07:30 06/12/16 11:00 06/12/16 11:00 Intake and Output: 06/12/16 06/12/16 06:59 18:59 Intake Total 1010 Output Total 1400 Balance -390 - Medications Medications: Current Medications Acetaminophen (Tylenol 650mg/20.3ml Solution Ud) 650 mg PO Q6H PRN PRN Reason: Fever >100.4 F Last Admin: 06/12/16 08:54 Dose: 650 mg Albuterol/Ipratropium (Duoneb 3 Mg/0.5 Mg (3 Ml) Ud) 3 ml IH [id number] [facility] Last Admin: 06/12/16 13:44 Dose: 3 ml Heparin Sodium (Porcine) (Heparin) 5,000 units SC Q12 SHARIF PRN Reason: Protocol Last Admin: 06/12/16 09:50 Dose: 5,000 units Hydromorphone HCl (Dilaudid) 0.5 mg IVP Q4H PRN PRN Reason: Agitation Metronidazole (Flagyl) 100 mls @ 100 mls/hr IVPB Q8 SHARIF PRN Reason: Protocol Last Admin: 06/12/16 15:29 Dose: 100 mls/hr Vancomycin HCl 1 gm/ Dextrose 250 mls @ 166.667 mls/hr IVPB Q12 [facility] Last Admin: 06/12/16 09:45 Dose: 166.667 mls/hr Amikacin Sulfate 500 mg/ (Sodium Chloride) 102 mls @ 204 mls/hr IVPB Q8 SHARIF PRN Reason: Protocol Last Admin: 06/12/16 14:46 Dose: 204 mls/hr Insulin Human Lispro (Humalog Med) 0 units SC ACHS SHARIF PRN Reason: Protocol Last Admin: 06/12/16 17:20 Dose: Not Given Lorazepam (Ativan) 2 mg IVP Q4H PRN; Protocol PRN Reason: Anxiety Last Admin: 06/09/16 19:06 Dose: 2 mg Metoprolol Tartrate (Lopressor) 5 mg IVP Q4H PRN PRN Reason: Heart rate Pantoprazole Sodium (Protonix Inj) 40 mg IVP Q12 [facility] Last Admin: 06/12/16 09:48 Dose: 40 mg Vitamin A (Vitamin A & D Oint Ud Foilpak) 1 ea TOP Q12H PRN PRN Reason: Apply to dry lips Last Admin: 06/08/16 09:07 Dose: 1 ea - Labs Labs: 06/12/16 05:20 06/12/16 05:20 PT 15.4 Seconds (9.9-11.8) H 06/08/16 08:18 INR 1.43 (0.93-1.08) H 06/08/16 08:18 APTT 31.8 Seconds (23.7-30.8) H 06/08/16 08:18 - Constitutional Appears: No Acute Distress, Chronically Ill - Head Exam Additional comments: intubated and ventilated - Eye Exam Eye Exam: EOMI, PERRL Pupil Exam: NORMAL ACCOMODATION, PERRL Additional comments: intubated and ventilated - ENT Exam ENT Exam: Normal External Ear Exam, TM's Normal Bilaterally - Neck Exam Neck Exam: Full ROM, Normal Inspection - Respiratory Exam Respiratory Exam: absent: Rales, Rhonchi, Wheezes Additional comments: intubated and ventilated. - Cardiovascular Exam Cardiovascular Exam: REGULAR RHYTHM, RRR, +S1, +S2 - GI/Abdominal Exam GI & Abdominal Exam: Soft, Normal Bowel Sounds. absent: Distended, Tenderness - Extremities Exam Additional comments: mild edema all extremities - Neurological Exam Additional comments: tracheotomy and ventilated. Poorly responsive. spontaneously opens eyes. - Psychiatric Exam Additional comments: tracheotomy and ventilated. Poorly responsive. spontaneously opens eyes. Assessment and Plan - Assessment and Plan (Free Text) Assessment: 85 yo male with cecal mass and bilateral hernia had exploratory laparotomy with right hemicolectomy. The patient is unable to give any significant information when speaking with him. He is not complaining of pain. The patient leukocytosis remains elevated at 19.9. Supportive care. Adenocarcinoma in cecal mass pathology. Silva cultures sent. Had Proteus in urine culture over a week ago but more recent urine culture is negative for growth. No growth in recent cultures so far. C. Diff studies negative. Currently on Meropenem and Flagyl for antibiotic coverage. Supportive care. Extremely poor prognosis with care bordering on futility at this point. No improvement in mental status over the past few days. Remains in MICU and required intubation and ventilation. On antibiotics of Vancomycin, Meropenem, and Flagyl currently. Awaiting repeat cultures - negative to date at 5+ days. No further surgical interventions. Possible aspiration pneumonia. Bleed at anastomotic site. Patient is hemodynamically stable. CT when patient stable enough to do so. He is currently off pressors. Repeat Abdominal X-ray shows resolvement of SBO portion of disease. Patient remains critically ill and has an extremely poor prognosis. He remains intubated and ventilated. There are attempts to wean off ventilator. No family available for decision making for the patient. Persistent high leukocytosis. The patient had PEG and trach placed. Afebrile the past 24 hours today. Stopped meropenem and started Amikacin yesterday. Cultures to date have been negative. Thank you for allowing me to participate in the care of the patient, we will follow with you.
[2016-06-12] MEDS: Metoprolol 1 mg/ml Inj IVP PRN (21:23)
[2016-06-13] MEDS: Albuterol-Ipratrop 3 mg / 0.5 (3 ml) UD IH SCH ×3 (02:30→13:12)
[2016-06-13] MEDS: metroNIDAZOLE IV 500 mg/100 ml 100 ML IVPB SCH ×2 (05:17→13:34)
[2016-06-13 05:27] LABS: ARTERIAL BLOOD GAS HCO3 31.8 mmol/L (21-28); ARTERIAL BLOOD GAS O2 CAPACITY 12.1 mL/dl (16-24); ARTERIAL BLOOD GAS PH 7.42 (7.35-7.45); ARTERIAL BLOOD HGB O2 SAT 96.8 % (95.0-98.0); HHB 0.5 % (0-5); METHEMOGLOBIN 0.7 % (0.0-3.0)
[2016-06-13 06:42] LABS: ALB/GLOB RATIO 0.6 (1.1-1.8); ALKALINE PHOSPHATASE 117 U/L (38-133); ALT/SGPT 29 U/L (7-56); AST/SGOT 45 U/L (15-59); BASO # 0.01 K/mm3 (0.0-2.0); BASO % 0.1 % (0.0-3.0); BILIRUBIN,TOTAL 0.7 mg/dL (0.2-1.3); BLOOD UREA NITROGEN 11 mg/dL (7-21); CALCIUM 7.3 mg/dL (8.4-10.5); CARBON DIOXIDE 31 mmol/L (21-33); CHLORIDE 107 mmol/L (98-107); EOS % 0.2 % (1.5-5.0); GFR AFRICAN-AMERICAN > 60; GLUCOSE,RANDOM 79 mg/dL (70-110); GRAN # 18.37 (1.4-6.5); HEMATOCRIT 27.5 % (42.0-52.0); LYMPH # 0.7 (1.2-3.4); LYMPH % 3.3 % (22.0-35.0); MEAN CELL VOLUME 92.3 fL (80.0-105.0); MEAN CORPUSCULAR HEMOGLOBIN 28.5 pg (25.0-35.0); MEAN CORPUSCULAR HGB CONC 30.9 g/dl (31.0-37.0); MEAN PLATELET VOLUME 11.3 fl (7.0-11.0); MONO # 0.9 (0.1-0.6); MONO % 4.4 % (1.0-6.0); PLATELET COUNT 405 10^3/uL (120.0-450.0); POTASSIUM 3.8 mmol/L (3.6-5.0); RED CELL DISTRIBUTION WIDTH 19.7 % (11.5-14.5); SODIUM 144 mmol/L (132-148); TOTAL PROTEIN 5.3 g/dL (5.8-8.3)
[2016-06-13 06:46] LABS: ADD MANUAL DIFF? NO
[2016-06-13] MEDS: Insulin Lispro (humaLOG) MEDIUM Coverage SC SCH ×3 (07:30→16:30)
--- NOTE | 2016-06-13 07:46 | CP.PCM.PN ---
Subjective - Date & Time of Evaluation Date of Evaluation: 06/13/16 Time of Evaluation: 07:15 - Subjective Subjective: Pt seen and evaluated at bedside. Not responsive, afebrile. PEG tube leaking overnight, so feeds stopped. Objective - Vital Signs/Intake and Output Vital Signs (last 24 hours): Temp Pulse Resp BP Pulse Ox 98.7 F 122 H 41 H 122/50 L 96 06/13/16 04:00 06/13/16 04:35 06/13/16 07:19 06/13/16 03:00 06/13/16 07:19 Intake and Output: 06/13/16 06/13/16 06:59 18:59 Intake Total 650 Output Total 600 Balance 50 - Medications Medications: Current Medications Acetaminophen (Tylenol 650mg/20.3ml Solution Ud) 650 mg PO Q6H PRN PRN Reason: Fever >100.4 F Last Admin: 06/12/16 08:54 Dose: 650 mg Albuterol/Ipratropium (Duoneb 3 Mg/0.5 Mg (3 Ml) Ud) 3 ml IH [id number] SHARIF Last Admin: 06/13/16 07:07 Dose: 3 ml Heparin Sodium (Porcine) (Heparin) 5,000 units SC Q12 SHARIF PRN Reason: Protocol Last Admin: 06/12/16 21:22 Dose: 5,000 units Hydromorphone HCl (Dilaudid) 0.5 mg IVP Q4H PRN PRN Reason: Agitation Metronidazole (Flagyl) 100 mls @ 100 mls/hr IVPB Q8 SHARIF PRN Reason: Protocol Last Admin: 06/13/16 05:17 Dose: 100 mls/hr Vancomycin HCl 1 gm/ Dextrose 250 mls @ 166.667 mls/hr IVPB Q12 SHARIF Last Admin: 06/12/16 21:23 Dose: 166.667 mls/hr Amikacin Sulfate 500 mg/ (Sodium Chloride) 102 mls @ 204 mls/hr IVPB Q8 SHARIF PRN Reason: Protocol Last Admin: 06/13/16 05:17 Dose: 204 mls/hr Insulin Human Lispro (Humalog Med) 0 units SC ACHS SHARIF PRN Reason: Protocol Last Admin: 06/12/16 22:07 Dose: Not Given Lorazepam (Ativan) 2 mg IVP Q4H PRN; Protocol PRN Reason: Anxiety Last Admin: 06/09/16 19:06 Dose: 2 mg Metoprolol Tartrate (Lopressor) 5 mg IVP Q4H PRN PRN Reason: Heart rate Last Admin: 06/12/16 21:23 Dose: 5 mg Pantoprazole Sodium (Protonix Inj) 40 mg IVP Q12 SHARIF Last Admin: 06/12/16 21:23 Dose: 40 mg Vitamin A (Vitamin A & D Oint Ud Foilpak) 1 ea TOP Q12H PRN PRN Reason: Apply to dry lips Last Admin: 06/08/16 09:07 Dose: 1 ea - Labs Labs: 06/13/16 06:00 06/13/16 06:00 PT 15.4 Seconds (9.9-11.8) H 06/08/16 08:18 INR 1.43 (0.93-1.08) H 06/08/16 08:18 APTT 31.8 Seconds (23.7-30.8) H 06/08/16 08:18 - Additional Findings Additional findings: - Constitutional Appears: Non-toxic, No Acute Distress - Respiratory Exam Respiratory Exam: absent: Accessory Muscle Use, Respiratory Distress - GI/Abdominal Exam GI & Abdominal Exam: Soft. absent: Firm, Rigid Additional comments: B/L inguinal hernia noted - Neurological Exam Neurological Exam: Alert, Awake, Oriented x3 - Psychiatric Exam Psychiatric exam: Normal Affect, Normal Mood - Skin Skin Exam: Dry, Intact, Normal Color, Warm Assessment and Plan - Assessment and Plan (Free Text) Plan: 86M w. cecal mass, s/p ex-lap w. R hemicolectomy, POD#22 (05/22/2016) and trach and gastrostomy tube placement, POD#5 (06/08/2016) -Path: adenocarcinoma -Post-op bleed likely at anastomosis site, resolved -trach, remove sutures POD#10, 06/18/2016 -c/w current medical management -will d/w attending -LTAC placement -No further surgical intervention at this time Will discuss with attending Dr. Peterson for further recs. Soledad Britton PGY1
--- NOTE | 2016-06-13 08:32 | RAD ---
HISTORY: intubated COMPARISON: 06/09/2016 FINDINGS: There is stable position of the tracheostomy tube. The right IJV line terminates at the cavoatrial junction. LUNGS: There is persistent airspace disease in both upper lobes, more confluent and extensive on the right. There is also airspace disease in both lower lobes, worse on the left. PLEURA: No significant pleural effusion identified, no pneumothorax apparent. CARDIOVASCULAR: Normal. OSSEOUS STRUCTURES: No significant abnormalities. VISUALIZED UPPER ABDOMEN: Normal. OTHER FINDINGS: None. IMPRESSION: Stable position of tracheostomy tube and a right IJV line. Persistent multifocal pneumonia, worse in the right upper lobe.
--- NOTE | 2016-06-13 09:44 | CP.CCUPN ---
<Roger Britton - Last Filed: 06/13/16 09:47> CCU Subjective - Physician Review Subjective (Free Text): Pt s&e w ICU attending. Pt is off sedation, on vent. On tube feed. watery BM. No blood. Pt is spontaneaously opening eyes. response to some pain stimuli, doesn't follow commands. Awaiting for placement. No fever in 24hrs. Pt kept failing ventilator weaning. Continue to have secretions. CCU Objective - Vital Signs / Intake & Output Vital Signs (Last 4 hours): Vital Signs Temp Pulse Resp BP Pulse Ox 06/13/16 08:01 124 H 06/13/16 08:00 98.7 F 124 H 24 96 06/13/16 07:19 41 H 96 06/13/16 06:00 128 H 39 H 125/58 L 96 Intake and Output (Last 8hrs): Intake & Output 06/12/16 06/13/16 06/13/16 22:59 06:59 14:59 Intake Total 1430 650 Output Total 525 600 Balance 905 50 Weight 159 lb 6.4 oz Intake: IV 650 650 Right Internal Jugular 650 650 Tube Feeding 380 Other 400 Output: Urine 525 500 Urethral (Gleason) 525 500 Stool 100 Other: Voiding Method Indwelling Catheter Indwelling Catheter - Physical Exam Head: Positive for: Atraumatic, Normocephalic. Negative for: Ecchymosis Pupils: Positive for: PERRL Extroacular Muscles: Positive for: EOMI Conjunctiva: Negative for: Injected, Icteric Mouth: Positive for: Dry Pharnyx: Positive for: Normal. Negative for: ERYTHEMA Nose (Internal): Positive for: Normal Inspection, No Active Bleeding Neck: Positive for: Normal Range of Motion (Tracheostomy in place ) Respiratory/Chest: Positive for: Clear to Auscultation, Good Air Exchange, Other (trach collar in place) Cardiovascular: Positive for: Normal S1, S2 Abdomen: Positive for: Normal Bowel Sounds (post surgical changes ), Hernias, Other (Incision C/D/I). Negative for: Tenderness, Distention, Peritoneal Signs , Rebound, Guarding Rectal: Positive for: Other (Rectal tube) Genitourinary Male: Positive for: Testicle Tenderness, Hernias, Testicle Swelling, Other (Large [id number] R inguinal hernia: irreducible. 10x5cm L inguinal hernia : irreducible.Gleason 1L /24hrs). Negative for: Normal External Genitalia Back: Positive for: Normal Inspection Upper Extremity: Positive for: Edema, Swelling. Negative for: Erythema Lower Extremity: Positive for: Edema, Swelling. Negative for: Cyanosis Skin: Positive for: Warm, Dry Psychiatric: Negative for: Alert, Oriented x 3, Normal Insight - Medications Active Medications: Active Medications Generic Name Dose Route Start Last Admin Trade Name Freq PRN Reason Stop Dose Admin Acetaminophen 650 mg 06/10/16 11:35 06/12/16 08:54 Tylenol 650mg/20.3ml Solution Ud PO 650 mg Q6H PRN Administration Fever >100.4 F Albuterol/Ipratropium 3 ml 05/30/16 14:00 06/13/16 07:07 Duoneb 3 Mg/0.5 Mg (3 Ml) Ud IH 3 ml [id number] SHARIF Administration Heparin Sodium (Porcine) 5,000 units 06/08/16 22:00 06/13/16 09:26 Heparin SC 5,000 units Q12 SHARIF Administration Protocol Hydromorphone HCl 0.5 mg 06/12/16 09:34 Dilaudid IVP Q4H PRN Agitation Metronidazole 100 mls @ 100 mls/hr 05/24/16 08:15 06/13/16 05:17 Flagyl IVPB 100 mls/hr Q8 SHARIF Administration Protocol Vancomycin HCl 1 gm/ Dextrose 250 mls @ 166.667 mls/hr 06/02/16 22:00 06/12/16 21:23 IVPB 166.667 mls/hr Q12 SHARIF Administration Amikacin Sulfate 500 mg/ 102 mls @ 204 mls/hr 06/11/16 14:00 06/13/16 05:17 Sodium Chloride IVPB 204 mls/hr Q8 SHARIF Administration Protocol Insulin Human Lispro 0 units 05/31/16 22:00 06/13/16 07:30 Humalog Med SC Not Given ACHS SHARIF Protocol Lorazepam 2 mg 06/09/16 19:05 06/09/16 19:06 Ativan IVP 2 mg Q4H PRN Administration Anxiety Protocol Metoprolol Tartrate 5 mg 06/12/16 03:45 06/12/16 21:23 Lopressor IVP 5 mg Q4H PRN Administration Heart rate Pantoprazole Sodium 40 mg 06/01/16 10:00 06/13/16 09:26 Protonix Inj IVP 40 mg Q12 SHARIF Administration Vitamin A 1 ea 06/07/16 16:02 06/08/16 09:07 Vitamin A & D Oint Ud Foilpak TOP 1 ea Q12H PRN Administration Apply to dry lips - Patient Studies Lab Studies: Microbiology Studies 06/10/16 12:00 Blood Culture - Preliminary Blood-Venous NO GROWTH AFTER 48 HOURS 06/10/16 11:50 Blood Culture - Preliminary Blood-Venous NO GROWTH AFTER 48 HOURS 06/10/16 11:00 C. difficile Antigen & Toxin A,B (M - Final Stool Lab Studies 06/13/16 06/13/16 06/13/16 Range/Units 07:22 06:00 05:15 WBC 20.0 H (4.5-11.0) 10^3/ul RBC 2.98 L (3.5-6.1) 10^6/uL Hgb 8.5 L (14.0-18.0) gm/dL Hct 27.5 L (42.0-52.0) % MCV 92.3 (80.0-105.0) fL MCH 28.5 (25.0-35.0) pg MCHC 30.9 L (31.0-37.0) g/dl RDW 19.7 H (11.5-14.5) % Plt Count 405 (120.0-450.0) 10^3/uL MPV 11.3 H (7.0-11.0) fl Gran % 92.0 H (50.0-68.0) % Lymph % (Auto) 3.3 L (22.0-35.0) % [place] % (Auto) 4.4 (1.0-6.0) % Eos % (Auto) 0.2 L (1.5-5.0) % Baso % (Auto) 0.1 (0.0-3.0) % Gran # 18.37 H (1.4-6.5) Lymph # 0.7 L (1.2-3.4) [place] # 0.9 H (0.1-0.6) Eos # 0.0 (0.0-0.7) Baso # 0.01 (0.0-2.0) K/mm3 pCO2 49 H (35-45) mm/Hg pO2 108.0 H (80-100) mm/Hg HCO3 31.8 H (21-28) mmol/L ABG pH 7.42 (7.35-7.45) ABG Total CO2 33.3 H (22-28) mmol.L ABG O2 Saturation 99.5 H (95-98) % ABG O2 Content 12.0 L (15-23) ML/dl ABG Base Excess 6.5 H (-2.0-3.0) mmol/L ABG Hemoglobin 8.7 L (11.7-17.4) g/dL ABG Carboxyhemoglobin 2.0 H (0.5-1.5) % POC ABG HHb (Measured) 0.5 (0-5) % ABG Methemoglobin 0.7 (0.0-3.0) % ABG O2 Capacity 12.1 L (16-24) mL/dl Hgb O2 Saturation 96.8 (95.0-98.0) % FiO2 60.0 % Sodium 144 (132-148) mmol/L Potassium 3.8 (3.6-5.0) mmol/L Chloride 107 (98-107) mmol/L Carbon Dioxide 31 (21-33) mmol/L Anion Gap 10 (10-20) BUN 11 (7-21) mg/dL Creatinine 0.5 (0.5-1.4) mg/dL Est GFR ( Amer) > 60 Est GFR (Non-Af Amer) > 60 POC Glucose (mg/dL) 75 (65-110) mg/dL Random Glucose 79 (70-110) mg/dL Calcium 7.3 L (8.4-10.5) mg/dL Total Bilirubin 0.7 (0.2-1.3) mg/dL AST 45 (15-59) U/L ALT 29 (7-56) U/L Alkaline Phosphatase 117 (38-133) U/L Total Protein 5.3 L (5.8-8.3) g/dL Albumin 1.9 L (3.0-4.8) g/dL Globulin 3.4 gm/dL Albumin/Globulin Ratio 0.6 L (1.1-1.8) 06/12/16 06/12/1617 Range/Units 22:02 16:11 11:02 WBC (4.5-11.0) 10^3/ul RBC (3.5-6.1) 10^6/uL Hgb (14.0-18.0) gm/dL Hct (42.0-52.0) % MCV (80.0-105.0) fL MCH (25.0-35.0) pg MCHC (31.0-37.0) g/dl RDW (11.5-14.5) % Plt Count (120.0-450.0) 10^3/uL MPV (7.0-11.0) fl Gran % (50.0-68.0) % Lymph % (Auto) (22.0-35.0) % [place] % (Auto) (1.0-6.0) % Eos % (Auto) (1.5-5.0) % Baso % (Auto) (0.0-3.0) % Gran # (1.4-6.5) Lymph # (1.2-3.4) [place] # (0.1-0.6) Eos # (0.0-0.7) Baso # (0.0-2.0) K/mm3 pCO2 (35-45) mm/Hg pO2 (80-100) mm/Hg HCO3 (21-28) mmol/L ABG pH (7.35-7.45) ABG Total CO2 (22-28) mmol.L ABG O2 Saturation (95-98) % ABG O2 Content (15-23) ML/dl ABG Base Excess (-2.0-3.0) mmol/L ABG Hemoglobin (11.7-17.4) g/dL ABG Carboxyhemoglobin (0.5-1.5) % POC ABG HHb (Measured) (0-5) % ABG Methemoglobin (0.0-3.0) % ABG O2 Capacity (16-24) mL/dl Hgb O2 Saturation (95.0-98.0) % FiO2 % Sodium (132-148) mmol/L Potassium (3.6-5.0) mmol/L Chloride (98-107) mmol/L Carbon Dioxide (21-33) mmol/L Anion Gap (10-20) BUN (7-21) mg/dL Creatinine (0.5-1.4) mg/dL Est GFR ( Amer) Est GFR (Non-Af Amer) POC Glucose (mg/dL) 99 111 H 142 H (65-110) mg/dL Random Glucose (70-110) mg/dL Calcium (8.4-10.5) mg/dL Total Bilirubin (0.2-1.3) mg/dL AST (15-59) U/L ALT (7-56) U/L Alkaline Phosphatase (38-133) U/L Total Protein (5.8-8.3) g/dL Albumin (3.0-4.8) g/dL Globulin gm/dL Albumin/Globulin Ratio (1.1-1.8) 06/12/16 06/12/16 Range/Units 11:00 07:12 WBC (4.5-11.0) 10^3/ul RBC (3.5-6.1) 10^6/uL Hgb (14.0-18.0) gm/dL Hct (42.0-52.0) % MCV (80.0-105.0) fL MCH (25.0-35.0) pg MCHC (31.0-37.0) g/dl RDW (11.5-14.5) % Plt Count (120.0-450.0) 10^3/uL MPV (7.0-11.0) fl Gran % (50.0-68.0) % Lymph % (Auto) (22.0-35.0) % [place] % (Auto) (1.0-6.0) % Eos % (Auto) (1.5-5.0) % Baso % (Auto) (0.0-3.0) % Gran # (1.4-6.5) Lymph # (1.2-3.4) [place] # (0.1-0.6) Eos # (0.0-0.7) Baso # (0.0-2.0) K/mm3 pCO2 45 (35-45) mm/Hg pO2 128.0 H (80-100) mm/Hg HCO3 31.3 H (21-28) mmol/L ABG pH 7.45 (7.35-7.45) ABG Total CO2 32.7 H (22-28) mmol.L ABG O2 Saturation 99.2 H (95-98) % ABG O2 Content 11.1 L (15-23) ML/dl ABG Base Excess 6.6 H (-2.0-3.0) mmol/L ABG Hemoglobin 7.9 L (11.7-17.4) g/dL ABG Carboxyhemoglobin 1.6 H (0.5-1.5) % POC ABG HHb (Measured) 0.8 (0-5) % ABG Methemoglobin 0.6 (0.0-3.0) % ABG O2 Capacity 11.2 L (16-24) mL/dl Hgb O2 Saturation 97.1 (95.0-98.0) % FiO2 60.0 % Sodium (132-148) mmol/L Potassium (3.6-5.0) mmol/L Chloride (98-107) mmol/L Carbon Dioxide (21-33) mmol/L Anion Gap (10-20) BUN (7-21) mg/dL Creatinine (0.5-1.4) mg/dL Est GFR ( Amer) Est GFR (Non-Af Amer) POC Glucose (mg/dL) 101 (65-110) mg/dL Random Glucose (70-110) mg/dL Calcium (8.4-10.5) mg/dL Total Bilirubin (0.2-1.3) mg/dL AST (15-59) U/L ALT (7-56) U/L Alkaline Phosphatase (38-133) U/L Total Protein (5.8-8.3) g/dL Albumin (3.0-4.8) g/dL Globulin gm/dL Albumin/Globulin Ratio (1.1-1.8) Laboratory Results - last 24 hr 06/12/16 06/12/16 06/12/16 07:12 11:00 11:02 WBC RBC Hgb Hct MCV MCH MCHC RDW Plt Count MPV Gran % Lymph % (Auto) [place] % (Auto) Eos % (Auto) Baso % (Auto) Gran # Lymph # [place] # Eos # Baso # pCO2 45 pO2 128.0 H HCO3 31.3 H ABG pH 7.45 ABG Total CO2 32.7 H ABG O2 Saturation 99.2 H ABG O2 Content 11.1 L ABG Base Excess 6.6 H ABG Hemoglobin 7.9 L ABG Carboxyhemoglobin 1.6 H POC ABG HHb (Measured) 0.8 ABG Methemoglobin 0.6 ABG O2 Capacity 11.2 L Hgb O2 Saturation 97.1 FiO2 60.0 Sodium Potassium Chloride Carbon Dioxide Anion Gap BUN Creatinine Est GFR ( Amer) Est GFR (Non-Af Amer) POC Glucose (mg/dL) 101 142 H Random Glucose Calcium Total Bilirubin AST ALT Alkaline Phosphatase Total Protein Albumin Globulin Albumin/Globulin Ratio 06/12/16 06/12/16 06/13/16 16:11 22:02 05:15 WBC RBC Hgb Hct MCV MCH MCHC RDW Plt Count MPV Gran % Lymph % (Auto) [place] % (Auto) Eos % (Auto) Baso % (Auto) Gran # Lymph # [place] # Eos # Baso # pCO2 49 H pO2 108.0 H HCO3 31.8 H ABG pH 7.42 ABG Total CO2 33.3 H ABG O2 Saturation 99.5 H ABG O2 Content 12.0 L ABG Base Excess 6.5 H ABG Hemoglobin 8.7 L ABG Carboxyhemoglobin 2.0 H POC ABG HHb (Measured) 0.5 ABG Methemoglobin 0.7 ABG O2 Capacity 12.1 L Hgb O2 Saturation 96.8 FiO2 60.0 Sodium Potassium Chloride Carbon Dioxide Anion Gap BUN Creatinine Est GFR ( Amer) Est GFR (Non-Af Amer) POC Glucose (mg/dL) 111 H 99 Random Glucose Calcium Total Bilirubin AST ALT Alkaline Phosphatase Total Protein Albumin Globulin Albumin/Globulin Ratio 06/13/16 06/13/16 06:00 07:22 WBC 20.0 H RBC 2.98 L Hgb 8.5 L Hct 27.5 L MCV 92.3 MCH 28.5 MCHC 30.9 L RDW 19.7 H Plt Count 405 MPV 11.3 H Gran % 92.0 H Lymph % (Auto) 3.3 L [place] % (Auto) 4.4 Eos % (Auto) 0.2 L Baso % (Auto) 0.1 Gran # 18.37 H Lymph # 0.7 L [place] # 0.9 H Eos # 0.0 Baso # 0.01 pCO2 pO2 HCO3 ABG pH ABG Total CO2 ABG O2 Saturation ABG O2 Content ABG Base Excess ABG Hemoglobin ABG Carboxyhemoglobin POC ABG HHb (Measured) ABG Methemoglobin ABG O2 Capacity Hgb O2 Saturation FiO2 Sodium 144 Potassium 3.8 Chloride 107 Carbon Dioxide 31 Anion Gap 10 BUN 11 Creatinine 0.5 Est GFR ( Amer) > 60 Est GFR (Non-Af Amer) > 60 POC Glucose (mg/dL) 75 Random Glucose 79 Calcium 7.3 L Total Bilirubin 0.7 AST 45 ALT 29 Alkaline Phosphatase 117 Total Protein 5.3 L Albumin 1.9 L Globulin 3.4 Albumin/Globulin Ratio 0.6 L Fingerstick Blood Sugar Results: 75 Review of Systems - Review of Systems Systems not reviewed;Unavailable: Altered Mental Status Critical Care Progress Note - Ventilator Checklist Head of Bed 30 Degrees: Yes Daily Sedation Vacation: No Daily Assessment of Readiness to Wean: Yes Assessment/Plan - Assessment and Plan (Free Text) Assessment: The patient is a 66 year old man with a history of developmental delay, iron deficiency anemia, and degenerative arthritis who was admitted to [facility] on with bilateral, non-reducible inguinal hernias and a CT-scan showing a large cecal mass, concerning for malignancy. As a result, he underwent an exploratory laparotomy and right hemicolectomy (with pathology of cecal mass still pending) . Because of the hemicolectomy, and the large size of the patients bilateral inguinal hernias could not be repaired during the procedure. Post-operatively, the patient developed marked leukocytosis. The CT scan shows an incarcerated right hernia sac with secondary small bowel obstruction, which general surgery manually reduced but reccuring. The bleeding scan shows active bleeding most likely from the sigmoid colon. Bleeding resolved. Hypoxic respiratory failure ventilator dependent 2/2 aspiration pneumonia and ARDS Toxic metabolic encephalopathy Hemorrhagic shock 2/2 GI bleed: resolved. off pressors POD5 s/p Trach and gastrostomy tube Neuro: Improved responsiveness AAO x0 Mental Retardation Maintain normothermia EEG: Severe bihemispheric cerebral dysfunction CT: Old ischemia -Dilaudid PRN-Ativan PRN -off sedation: Precedex Neuro following CV: Hemodynamically stable: Off pressors Maintain MAP >65 Lopressor Pulm: Able to withstand PS sbt trial x 90 minutes. CXR : b/l infiltration Maintain Sp02>90 Plateau pressure <30 PaO2 >55% ABX per ID Duoneb Wean vent : On Daily SBT trials GI: Colon CA: S/P R nimo for SBO and cecal mass: Path-Invasive adenoCA of colon 4x5cm T3N0 Bloody BM: resolved, billious diarrhea now. Tube feed Protonix IV 40mg ok to resume PO meds hepatin sub Q GI on board Heme: 6 PRBC given WBC 21.3 today trending down Transfuse if Hgb <8 Heme/Onc consult for Colon CA persistent leukocytosis Renal/: Urine output 1L /24hrs. 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 Amikacin/Vanc/Merrem ID on board f/u cx Endo: Accucheck q2 Maintain euglycemia SSI GI ppx: PTX DVT ppx: SCDs, sub Q hep Disposition: Likely LTAC. Contact family for possible DNR Case seen, reviewed and discussed with attending <Duane BARRERA,Herbie H - Last Filed: 06/13/16 14:48> CCU Objective - Vital Signs / Intake & Output Vital Signs (Last 4 hours): Vital Signs Temp Pulse Resp BP Pulse Ox 06/13/16 14:00 110 H 06/13/16 13:00 110 H 92/47 L 94 L 06/13/16 12:00 99 F 106 H 28 H 118/53 L 92 L 06/13/16 11:02 107 H 93 L 06/13/16 11:00 120 H 89/53 L 94 L Intake and Output (Last 8hrs): Intake & Output 06/12/16 06/13/16 06/13/16 22:59 06:59 14:59 Intake Total 1430 650 Output Total 525 600 Balance 905 50 Weight 159 lb 6.4 oz Intake: IV 650 650 Right Internal Jugular 650 650 Tube Feeding 380 Other 400 Output: Urine 525 500 Urethral (Gleason) 525 500 Stool 100 Other: Voiding Method Indwelling Catheter Indwelling Catheter - Medications Active Medications: Active Medications Generic Name Dose Route Start Last Admin Trade Name Freq PRN Reason Stop Dose Admin Acetaminophen 650 mg 06/10/16 11:35 06/12/16 08:54 Tylenol 650mg/20.3ml Solution Ud PO 650 mg Q6H PRN Administration Fever >100.4 F Albuterol/Ipratropium 3 ml 05/30/16 14:00 06/13/16 13:12 Duoneb 3 Mg/0.5 Mg (3 Ml) Ud IH 3 ml [id number] SHARIF Administration Heparin Sodium (Porcine) 5,000 units 06/08/16 22:00 06/13/16 09:26 Heparin SC 5,000 units Q12 SHARIF Administration Protocol Hydromorphone HCl 0.5 mg 06/12/16 09:34 Dilaudid IVP Q4H PRN Agitation Metronidazole 100 mls @ 100 mls/hr 05/24/16 08:15 06/13/16 13:34 Flagyl IVPB 100 mls/hr Q8 SHARIF Administration Protocol Vancomycin HCl 1 gm/ Dextrose 250 mls @ 166.667 mls/hr 06/02/16 22:00 06/13/16 09:56 IVPB 166.667 mls/hr Q12 SHARIF Administration Amikacin Sulfate 500 mg/ 102 mls @ 204 mls/hr 06/11/16 14:00 06/13/16 05:17 Sodium Chloride IVPB 204 mls/hr Q8 SHARIF Administration Protocol Insulin Human Lispro 0 units 05/31/16 22:00 06/13/16 11:41 Humalog Med SC Not Given ACHS SHARIF Protocol Lorazepam 2 mg 06/09/16 19:05 06/13/16 13:42 Ativan IVP 2 mg Q4H PRN Administration Anxiety Protocol Metoprolol Tartrate 5 mg 06/12/16 03:45 06/12/16 21:23 Lopressor IVP 5 mg Q4H PRN Administration Heart rate Pantoprazole Sodium 40 mg 06/01/16 10:00 06/13/16 09:26 Protonix Inj IVP 40 mg Q12 SHARIF Administration Vitamin A 1 ea 06/07/16 16:02 06/08/16 09:07 Vitamin A & D Oint Ud Foilpak TOP 1 ea Q12H PRN Administration Apply to dry lips - Patient Studies Lab Studies: Microbiology Studies 06/10/16 12:00 Blood Culture - Preliminary Blood-Venous NO GROWTH AFTER 3 DAYS 06/10/16 11:50 Blood Culture - Preliminary Blood-Venous NO GROWTH AFTER 3 DAYS Lab Studies 06/13/16 06/13/16 06/13/16 Range/Units 11:29 07:22 06:00 WBC 20.0 H (4.5-11.0) 10^3/ul RBC 2.98 L (3.5-6.1) 10^6/uL Hgb 8.5 L (14.0-18.0) gm/dL Hct 27.5 L (42.0-52.0) % MCV 92.3 (80.0-105.0) fL MCH 28.5 (25.0-35.0) pg MCHC 30.9 L (31.0-37.0) g/dl RDW 19.7 H (11.5-14.5) % Plt Count 405 (120.0-450.0) 10^3/uL MPV 11.3 H (7.0-11.0) fl Gran % 92.0 H (50.0-68.0) % Lymph % (Auto) 3.3 L (22.0-35.0) % [place] % (Auto) 4.4 (1.0-6.0) % Eos % (Auto) 0.2 L (1.5-5.0) % Baso % (Auto) 0.1 (0.0-3.0) % Gran # 18.37 H (1.4-6.5) Lymph # 0.7 L (1.2-3.4) [place] # 0.9 H (0.1-0.6) Eos # 0.0 (0.0-0.7) Baso # 0.01 (0.0-2.0) K/mm3 pCO2 (35-45) mm/Hg pO2 (80-100) mm/Hg HCO3 (21-28) mmol/L ABG pH (7.35-7.45) ABG Total CO2 (22-28) mmol.L ABG O2 Saturation (95-98) % ABG O2 Content (15-23) ML/dl ABG Base Excess (-2.0-3.0) mmol/L ABG Hemoglobin (11.7-17.4) g/dL ABG Carboxyhemoglobin (0.5-1.5) % POC ABG HHb (Measured) (0-5) % ABG Methemoglobin (0.0-3.0) % ABG O2 Capacity (16-24) mL/dl Hgb O2 Saturation (95.0-98.0) % FiO2 % Sodium 144 (132-148) mmol/L Potassium 3.8 (3.6-5.0) mmol/L Chloride 107 (98-107) mmol/L Carbon Dioxide 31 (21-33) mmol/L Anion Gap 10 (10-20) BUN 11 (7-21) mg/dL Creatinine 0.5 (0.5-1.4) mg/dL Est GFR ( Amer) > 60 Est GFR (Non-Af Amer) > 60 POC Glucose (mg/dL) 106 75 (65-110) mg/dL Random Glucose 79 (70-110) mg/dL Calcium 7.3 L (8.4-10.5) mg/dL Total Bilirubin 0.7 (0.2-1.3) mg/dL AST 45 (15-59) U/L ALT 29 (7-56) U/L Alkaline Phosphatase 117 (38-133) U/L Total Protein 5.3 L (5.8-8.3) g/dL Albumin 1.9 L (3.0-4.8) g/dL Globulin 3.4 gm/dL Albumin/Globulin Ratio 0.6 L (1.1-1.8) 06/13/16 06/12/16 06/12/16 Range/Units 05:15 22:02 16:11 WBC (4.5-11.0) 10^3/ul RBC (3.5-6.1) 10^6/uL Hgb (14.0-18.0) gm/dL Hct (42.0-52.0) % MCV (80.0-105.0) fL MCH (25.0-35.0) pg MCHC (31.0-37.0) g/dl RDW (11.5-14.5) % Plt Count (120.0-450.0) 10^3/uL MPV (7.0-11.0) fl Gran % (50.0-68.0) % Lymph % (Auto) (22.0-35.0) % [place] % (Auto) (1.0-6.0) % Eos % (Auto) (1.5-5.0) % Baso % (Auto) (0.0-3.0) % Gran # (1.4-6.5) Lymph # (1.2-3.4) [place] # (0.1-0.6) Eos # (0.0-0.7) Baso # (0.0-2.0) K/mm3 pCO2 49 H (35-45) mm/Hg pO2 108.0 H (80-100) mm/Hg HCO3 31.8 H (21-28) mmol/L ABG pH 7.42 (7.35-7.45) ABG Total CO2 33.3 H (22-28) mmol.L ABG O2 Saturation 99.5 H (95-98) % ABG O2 Content 12.0 L (15-23) ML/dl ABG Base Excess 6.5 H (-2.0-3.0) mmol/L ABG Hemoglobin 8.7 L (11.7-17.4) g/dL ABG Carboxyhemoglobin 2.0 H (0.5-1.5) % POC ABG HHb (Measured) 0.5 (0-5) % ABG Methemoglobin 0.7 (0.0-3.0) % ABG O2 Capacity 12.1 L (16-24) mL/dl Hgb O2 Saturation 96.8 (95.0-98.0) % FiO2 60.0 % Sodium (132-148) mmol/L Potassium (3.6-5.0) mmol/L Chloride (98-107) mmol/L Carbon Dioxide (21-33) mmol/L Anion Gap (10-20) BUN (7-21) mg/dL Creatinine (0.5-1.4) mg/dL Est GFR ( Amer) Est GFR (Non-Af Amer) POC Glucose (mg/dL) 99 111 H (65-110) mg/dL Random Glucose (70-110) mg/dL Calcium (8.4-10.5) mg/dL Total Bilirubin (0.2-1.3) mg/dL AST (15-59) U/L ALT (7-56) U/L Alkaline Phosphatase (38-133) U/L Total Protein (5.8-8.3) g/dL Albumin (3.0-4.8) g/dL Globulin gm/dL Albumin/Globulin Ratio (1.1-1.8) 06/12/16 06/12/16 Range/Units 11:02 07:12 WBC (4.5-11.0) 10^3/ul RBC (3.5-6.1) 10^6/uL Hgb (14.0-18.0) gm/dL Hct (42.0-52.0) % MCV (80.0-105.0) fL MCH (25.0-35.0) pg MCHC (31.0-37.0) g/dl RDW (11.5-14.5) % Plt Count (120.0-450.0) 10^3/uL MPV (7.0-11.0) fl Gran % (50.0-68.0) % Lymph % (Auto) (22.0-35.0) % [place] % (Auto) (1.0-6.0) % Eos % (Auto) (1.5-5.0) % Baso % (Auto) (0.0-3.0) % Gran # (1.4-6.5) Lymph # (1.2-3.4) [place] # (0.1-0.6) Eos # (0.0-0.7) Baso # (0.0-2.0) K/mm3 pCO2 (35-45) mm/Hg pO2 (80-100) mm/Hg HCO3 (21-28) mmol/L ABG pH (7.35-7.45) ABG Total CO2 (22-28) mmol.L ABG O2 Saturation (95-98) % ABG O2 Content (15-23) ML/dl ABG Base Excess (-2.0-3.0) mmol/L ABG Hemoglobin (11.7-17.4) g/dL ABG Carboxyhemoglobin (0.5-1.5) % POC ABG HHb (Measured) (0-5) % ABG Methemoglobin (0.0-3.0) % ABG O2 Capacity (16-24) mL/dl Hgb O2 Saturation (95.0-98.0) % FiO2 % Sodium (132-148) mmol/L Potassium (3.6-5.0) mmol/L Chloride (98-107) mmol/L Carbon Dioxide (21-33) mmol/L Anion Gap (10-20) BUN (7-21) mg/dL Creatinine (0.5-1.4) mg/dL Est GFR ( Amer) Est GFR (Non-Af Amer) POC Glucose (mg/dL) 142 H 101 (65-110) mg/dL Random Glucose (70-110) mg/dL Calcium (8.4-10.5) mg/dL Total Bilirubin (0.2-1.3) mg/dL AST (15-59) U/L ALT (7-56) U/L Alkaline Phosphatase (38-133) U/L Total Protein (5.8-8.3) g/dL Albumin (3.0-4.8) g/dL Globulin gm/dL Albumin/Globulin Ratio (1.1-1.8) Laboratory Results - last 24 hr 06/12/16 06/12/16 06/12/16 07:12 11:02 16:11 WBC RBC Hgb Hct MCV MCH MCHC RDW Plt Count MPV Gran % Lymph % (Auto) [place] % (Auto) Eos % (Auto) Baso % (Auto) Gran # Lymph # [place] # Eos # Baso # pCO2 pO2 HCO3 ABG pH ABG Total CO2 ABG O2 Saturation ABG O2 Content ABG Base Excess ABG Hemoglobin ABG Carboxyhemoglobin POC ABG HHb (Measured) ABG Methemoglobin ABG O2 Capacity Hgb O2 Saturation FiO2 Sodium Potassium Chloride Carbon Dioxide Anion Gap BUN Creatinine Est GFR ( Amer) Est GFR (Non-Af Amer) POC Glucose (mg/dL) 101 142 H 111 H Random Glucose Calcium Total Bilirubin AST ALT Alkaline Phosphatase Total Protein Albumin Globulin Albumin/Globulin Ratio 06/12/16 06/13/16 06/13/16 22:02 05:15 06:00 WBC 20.0 H RBC 2.98 L Hgb 8.5 L Hct 27.5 L MCV 92.3 MCH 28.5 MCHC 30.9 L RDW 19.7 H Plt Count 405 MPV 11.3 H Gran % 92.0 H Lymph % (Auto) 3.3 L [place] % (Auto) 4.4 Eos % (Auto) 0.2 L Baso % (Auto) 0.1 Gran # 18.37 H Lymph # 0.7 L [place] # 0.9 H Eos # 0.0 Baso # 0.01 pCO2 49 H pO2 108.0 H HCO3 31.8 H ABG pH 7.42 ABG Total CO2 33.3 H ABG O2 Saturation 99.5 H ABG O2 Content 12.0 L ABG Base Excess 6.5 H ABG Hemoglobin 8.7 L ABG Carboxyhemoglobin 2.0 H POC ABG HHb (Measured) 0.5 ABG Methemoglobin 0.7 ABG O2 Capacity 12.1 L Hgb O2 Saturation 96.8 FiO2 60.0 Sodium 144 Potassium 3.8 Chloride 107 Carbon Dioxide 31 Anion Gap 10 BUN 11 Creatinine 0.5 Est GFR ( Amer) > 60 Est GFR (Non-Af Amer) > 60 POC Glucose (mg/dL) 99 Random Glucose 79 Calcium 7.3 L Total Bilirubin 0.7 AST 45 ALT 29 Alkaline Phosphatase 117 Total Protein 5.3 L Albumin 1.9 L Globulin 3.4 Albumin/Globulin Ratio 0.6 L 06/13/16 06/13/16 07:22 11:29 WBC RBC Hgb Hct MCV MCH MCHC RDW Plt Count MPV Gran % Lymph % (Auto) [place] % (Auto) Eos % (Auto) Baso % (Auto) Gran # Lymph # [place] # Eos # Baso # pCO2 pO2 HCO3 ABG pH ABG Total CO2 ABG O2 Saturation ABG O2 Content ABG Base Excess ABG Hemoglobin ABG Carboxyhemoglobin POC ABG HHb (Measured) ABG Methemoglobin ABG O2 Capacity Hgb O2 Saturation FiO2 Sodium Potassium Chloride Carbon Dioxide Anion Gap BUN Creatinine Est GFR ( Amer) Est GFR (Non-Af Amer) POC Glucose (mg/dL) 75 106 Random Glucose Calcium Total Bilirubin AST ALT Alkaline Phosphatase Total Protein Albumin Globulin Albumin/Globulin Ratio Attending/Attestation - Attestation I have personally seen and examined this patient.: Yes I have fully participated in the care of the patient.: Yes I have reviewed all pertinent clinical information: Yes Notes (Text): 06/13/16 14:45 Opens eyes but no tracking. neuro status mildly improved. Tachycardia today , not able to perfrom SBT PS trial today. Tolerating tube feeding. Abx course greater than 14 days, possible stop today per ID and PCP No further surgical plans. s/p tracheostomy and PEG placement Prn sedation/ pain management Colon adenocarcinoma without any further treatment planed per ONC. plans awaiting LTAC placement cc time 45 min case d/w with consultants and PCP
[2016-06-13] MEDS: Vancomycin 1 GM in Dextrose 5% In Water 250 ML IVPB SCH (09:56)
--- NOTE | 2016-06-13 11:49 | PN ---
DATE: 06/13/2016 This 86-year-old male remains hospitalized in ICU bed 1. He remains unresponsive to verbal commands. He has no purposeful response or movement. He is status post trach and PEG tube placement, and remains ventilatory dependent. He has failed all weaning attempts, and is now being readied for transfer to a long-term vent facility. PHYSICAL EXAMINATION: Temperature 98.7, respirations 24, pulse 105, blood pressure 90/41, pulse ox 99 % on 60% FIO2. Intake is 650, output was 600 to date. environmental monitoring technician shows NSR. HEAD: Normocephalic, atraumatic. EYES: No icterus. NECK: Supple. Tracheostomy in place. HEART: Regular S1, S2. LUNGS: With occasional rhonchi bilaterally. ABDOMEN: Soft. PEG tube in place. EXTREMITIES: No clubbing, no cyanosis, no edema. He is wearing sequential compression device stockings. VASCULAR: Legs warm to touch. PSYCHOLOGICAL: Unresponsive. NEUROLOGIC: No purposeful movement. LABORATORIES: White count 20,000, hemoglobin 8.5, hematocrit 27.5, platelets 405,000. pH blood gas 7.42, pCO2 of 49, pO2 of 108, bicarb 31, on 60% FIO2 and 6 of PEEP with an O2 sat of 97%. Sodium 144, K 3.8, chloride 107, bicarb 31, BUN 11, creatinine 0.5. Random blood sugar 75. All liver function testing is normal including bilirubin 0.7, AST 45, ALT 29, alk phos 117. IMPRESSION: An 86-year-old male status post right hemicolectomy for adenocarcinoma of the colon complicated by postoperative hemorrhage, presumed secondary to the anastomotic site, as well as stress gastritis aspiration pneumonia, respiratory failure, acute respiratory distress syndrome, septic shock, now with persistent leukocytosis, chronic obstructive pulmonary disease, inability to wean off the ventilator, toxic metabolic encephalopathy, anemia of chronic disease, hyperglycemia, sepsis. PLAN: The patient continues on PEG tube feeds, ventilatory support. IV antibiotics under the direction of Dr. Victoria from infectious disease including vancomycin, amikacin, and Flagyl. He continues on duo nebulizers via his tracheostomy, suctioning, chest PT, subQ heparin, insulin coverage, IV Protonix. He is having serial chest x-rays. He remains on aspiration and fall precautions. Skin Care, He continues wearing sequential compression device anti -embolism stockings. I have spoken to social service. They are readying the patient for transfer to a long-term care facility that can support him on a ventilator. He remains a Full Code. No family is available to discuss DNR with, and overall prognosis remains poor. The patient will be continued to be treated in a conservative and compassionate way. Codi Pringle MD cc: [id number] TT: 06/13/2016 11:49:26 Confirmation # [id number] Dictation # [id number] jn MTDD
[2016-06-13 16:01] VITALS: RESP 21; TEMP 98.5
--- NOTE | 2016-06-13 16:12 | PN ---
DATE: 06/13/2016 Seen and examined at the bedside earlier today. The patient's feeding tube site is reported to be leaking at the insertion site. The tube feedings are currently on hold. No reports of any overt GI bleed. The patient has Flexi- Seal for watery diarrhea. He did have stool for C. diff sent, resulted yesterday as negative stool for C. diff. No reports of overt GI bleed. VITAL SIGNS: Temperature is 98.7, his blood pressure is 110/46, pulse 104, 96 oxygen saturation. LABORATORY DATA: WBC is 20.0, H and H is 8.5 and 27.5, platelets are 405. Sodium is 144, K is 3.8, BUN 11, creatinine 0.5. LFTs are within normal limits. He had a chest x-ray today which shows stable position of tracheostomy tube and a right IJ V-line, present multifocal pneumonia worse in the right upper lobe. PHYSICAL EXAMINATION: HEENT: Sclera is anicteric. NECK: Supple. CARDIAC: S1, S2. LUNGS: Sounds with positive for rhonchi, did not hear any wheezing. ABDOMEN: With bowel sounds. It is soft. His midline sutures are in place. No erythema or discharge noted. His feeding tube is in place. Did not see any drainage at the present time. There is dressing around it. EXTREMITIES: No edema. He has bilateral upper extremity edema. NEUROLOGIC: The patient was not responsive, but may ____. ASSESSMENT: This is an 86-year-old male who has adenocarcinoma of the colon. He had a right hemicolectomy with postop hemorrhage, thought to have bleeding at the anastomotic site. The patient also now with pneumonia, respiratory failure. He is status post trach, difficult to wean off the ventilator. He has septic shock with continued leukocytosis, anemia. PLAN: His G tube feedings are currently on hold,site leaking, as per surgery. He is on IV antibiotics, on Protonix q.12. He is also on DVT prophylaxis, heparin. Awaiting placement to LTAC. The patient was seen and case discussed with Dr. Luna. Henrietta KIRBY cc: [phone] TT: 06/13/2016 16:11:29 Confirmation # [id number] Dictation # [id number] MTDD
[2016-06-13] MEDS: Metoprolol 1 mg/ml Inj IVP PRN (17:32)
[2016-06-13 17:36] VITALS: BP 132/62
[2016-06-13 18:03] VITALS: O2SAT 92
[2016-06-13 18:04] VITALS: PULSE 103
--- NOTE | 2016-06-13 21:00 | CP.PCM.PN ---
Subjective - Date & Time of Evaluation Date of Evaluation: 06/13/16 Time of Evaluation: 17:00 - Subjective Subjective: Infectious Disease Follow Up: June 13, 2016 85 yo male with initial presentation for abdominal pain and abnormal CT scan sent from [facility] facility (I think [facility]). 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 Currently the patient appears comfortable. He is unable to give any relevant information due to a severe developmental delay. Patient has been displaying increased leukocytosis since the surgery. Patient himself is intubated and ventilated. At best, he open his eyes spontaneously but make no meaningful interactions. 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 He has been in the MICU for over 2 weeks. He remains intubated and ventilated. The patient received tracheotomy and PEG placement. Patient has an extremely poor prognosis. There has been no improvement of the patient's mental status over the past few days. The patient has been essentially non-responsive. Still very high leukocytosis. Multiple potential reasons for increased leukocytosis including high dose steroids. On the whole, the patient was afebrile and stable respiratory sigala. Mentally no improvement at all. Currently off pressors. Poorly responsive. Very poor prognosis. Remains intubated and ventilated. Attempts to wean off ventilator. Mentally, no improvement. No family available. Occasionally open eyes but no meaningful interaction. Afebrile the past 24 hours. Recultured - but no growth in the past 24-48 hours. On Amikacin. Objective - Vital Signs/Intake and Output Vital Signs (last 24 hours): Temp Pulse Resp BP Pulse Ox 98.5 F 103 H 21 132/62 92 L 06/13/16 15:59 06/13/16 18:00 06/13/16 15:59 06/13/16 17:32 06/13/16 17:00 Intake and Output: 06/13/16 06/14/16 18:59 06:59 Intake Total 510 Output Total 660 Balance -150 - Labs Labs: 06/13/16 06:00 06/13/16 06:00 PT 15.4 Seconds (9.9-11.8) H 06/08/16 08:18 INR 1.43 (0.93-1.08) H 06/08/16 08:18 APTT 31.8 Seconds (23.7-30.8) H 06/08/16 08:18 - Constitutional Appears: Chronically Ill - Head Exam Additional comments: trach and ventilated - Eye Exam Eye Exam: EOMI, PERRL Pupil Exam: NORMAL ACCOMODATION, PERRL (c) - ENT Exam Additional comments: trach and ventilated - Neck Exam Additional comments: trach and ventilated - Respiratory Exam Additional comments: trach and ventilated - Cardiovascular Exam Cardiovascular Exam: REGULAR RHYTHM, RRR, +S1, +S2 Additional comments: PEG in place - Extremities Exam Additional comments: mild edema all extremities - Neurological Exam Additional comments: tracheotomy and ventilated. Poorly responsive. spontaneously opens eyes. - Psychiatric Exam Additional comments: tracheotomy and ventilated. Poorly responsive. spontaneously opens eyes. Assessment and Plan - Assessment and Plan (Free Text) Assessment: 85 yo male with cecal mass and bilateral hernia had exploratory laparotomy with right hemicolectomy. The patient is unable to give any significant information when speaking with him. He is not complaining of pain. The patient leukocytosis remains elevated at 19.9. Supportive care. Adenocarcinoma in cecal mass pathology. Silva cultures sent. Had Proteus in urine culture over a week ago but more recent urine culture is negative for growth. No growth in recent cultures so far. C. Diff studies negative. Currently on Meropenem and Flagyl for antibiotic coverage. Supportive care. Extremely poor prognosis with care bordering on futility at this point. No improvement in mental status over the past few days. Remains in MICU and required intubation and ventilation. On antibiotics of Vancomycin, Meropenem, and Flagyl currently. Awaiting repeat cultures - negative to date at 5+ days. No further surgical interventions. Possible aspiration pneumonia. Bleed at anastomotic site. Patient is hemodynamically stable. CT when patient stable enough to do so. He is currently off pressors. Repeat Abdominal X-ray shows resolvement of SBO portion of disease. Patient remains critically ill and has an extremely poor prognosis. He remains intubated and ventilated. There are attempts to wean off ventilator. No family available for decision making for the patient. Persistent high leukocytosis. The patient had PEG and trach placed. Afebrile the past 48 hours since starting amikacin. On Amikacin to give total of 5 days. stop all other antibiotiucs. Cultures to date have been negative. Thank you for allowing me to participate in the care of the patient, we will follow with you.
--- NOTE | 2016-06-14 09:46 | DS ---
FINAL DIAGNOSES: Status post right hemicolectomy for cecal adenocarcinoma of the colon, complications including postoperative hemorrhage presumed secondary at the anastomotic site, with resultant anemia, hemorrhagic shock, septic shock , stress gastritis, aspiration pneumonia, acute respiratory distress syndrome, respiratory failure, metabolic encephalopathy, persistent unresponsive state, chronic obstructive pulmonary disease, hyperglycemia, persistent leukocytosis, persistent anemia, inability to wean off the ventilator. DISPOSITION: A ventilatory facility in a [place], [place]. DISCHARGE MEDICATION PROFILE: Amikacin 500 mg IV q. 8 hours for an additional 3 days, then discontinue; DuoNeb via trach q. 6 hours, suction p.r.n., heparin 5000 units subQ q. 12, Humalog medium dose insulin coverage a.c. mealtime and at bedtime, Protonix 40 mg IV q. 12. SUMMARY: This 86-year-old male was admitted to [facility] with a cecal carcinoma for which he underwent right hemicolectomy that was complicated by postoperative bleeding, hemorrhagic shock, septic shock, stress gastritis, and aspiration pneumonia, ARDS, and respiratory failure. His intensive care course was stormy. He required blood cell transfusion, fresh frozen plasma, platelet transfusion, and became unresponsive, ventilatory dependent, and then subsequently underwent a tracheostomy and a PEG tube placement. All attempts to reach any next of kin were unsuccessful. The patient's previous Advanced Directive has stated he wanted all aggressive measures taken for advanced life support, which were honored. At the time of his transfer to the long-term care ventilatory facility temperature was 98.5, respiratory rate 21, pulse 100, and blood pressure 132/62 , with a pulse ox of 92% on an FiO2 of 60% and 6 of PEEP. Final laboratories showed white count 20,000, hemoglobin 8.5, hematocrit 27.5, platelets 405,000. Sodium 144, K 3.8, chloride 107, bicarb 31, BUN 11, creatinine 0.5. Random blood sugar 106. All liver function testing was normal including bilirubin 0.7, AST 45, ALT 29, and alk phos 117. His final microbiology studies showed urine with no growth. Stool C. diff toxin, antigen , and antibody negative. Blood cultures no growth, and stool cultures negative. Case was discussed with Dr. Fuentes Victoria from infectious disease. He recommended an additional 3 days of IV amikacin, then for this antibiotic to be discontinued. The patient was cleared by the client service coordinator for transfer via ambulance to the LTAC facility. Overall prognosis remains guarded. No family members could be reached throughout his hospital course postoperatively, despite multiple attempts by social service, including phone calls, certified letters, et al. His prognosis remains extremely poor. Codi Pringle MD cc: [phone] TT: 06/14/2016 09:45:52 jn MTDD
--- NOTE | 2016-06-20 10:55 | OP ---
PROCEDURE DATE: 06/08/2016 The patient is seen in the operating room. The consent was obtained from another physician, as we we re unable to get in touch with the family at all through multiple attempts over the course of a week. It was done because of urgency. He has been intubated for several weeks. The consent being affirmed in the best way possible, the neck was hyperextended, but the neck was josé antonio y stiff. A transverse incision was made through the skin and subcutaneous tissues, and the midline i dentified nicely. We got into some bleeding in the fat pad above the thyroid. This was cauterized, swept down, exposing the trachea, which was pulled up as much as possible. Going through the second and third ring, a core was taken out of the trachea, and the dilator was placed, and #[address]ced nicely with good breath sounds and CO2 confirmation. It was sutured in place in 4 positions, an d the operation then resumed. Gastrostomy was placed. A midline incision was made through skin and subcutaneous tissues. The stomach was identified and pulled into the wound with [place] and gentle dissection. A #24 gastrostomy tube was placed through a ____ incision in the left upper quadrant. I t was placed into the stomach through 2 concentric pursestrings. It was inflated, irrigated, dried, and pursestrings applied. A Dorene was then fashioned with 4 stitches of 0 Vicryl on 3 sides, which w ere left untied, and positioned correctly. When we were satisfied, these were pulled up and tied ser ially, and anterior fourth stitch was then placed. It was flushed, irrigated. There was no issue. The incision was closed with running #1 PDS above and below and tied in the middle. The patient tolerated the procedure well. After the skin was closed with fabiana, the patient was ta valorie back to the ICU. X-ray confirmed good position. Alberto Peterson MD cc: [phone] TT: 06/20/2016 10:55:15 jn
== END 2016-06-13 20:28 | DRG 3 ==
LOC: ED 09:26 → ERH 13:11 → 5RSO 14:43 → CCU 05-25 21:21
PROVIDERS: ADMIT Internal Medicine; ATTEND Internal Medicine
PROC: 0DTF0ZZ Resection of Right Large Intestine, Open Approach (ICD-10-PCS; principal; 2016-05-22 12:00)
PROC: 30233N1 Transfusion of Nonautologous Red Blood Cells into Peripheral Vein, Percutaneous Approach (ICD-10-PCS; 2016-05-23)
PROC: 5A1955Z Respiratory Ventilation, Greater than 96 Consecutive Hours (ICD-10-PCS; 2016-05-26)
PROC: 05HM33Z Insertion of Infusion Device into Right Internal Jugular Vein, Percutaneous Approach (ICD-10-PCS; 2016-05-26)
PROC: 03H633Z Insertion of Infusion Device into Left Axillary Artery, Percutaneous Approach (ICD-10-PCS; 2016-05-26)
PROC: 0BH17EZ Insertion of Endotracheal Airway into Trachea, Via Natural or Artificial Opening (ICD-10-PCS; 2016-05-26)
PROC: 30233K1 Transfusion of Nonautologous Frozen Plasma into Peripheral Vein, Percutaneous Approach (ICD-10-PCS; 2016-05-26)
PROC: 30233R1 Transfusion of Nonautologous Platelets into Peripheral Vein, Percutaneous Approach (ICD-10-PCS; 2016-05-26)
PROC: 3E0F7GC Introduction of Other Therapeutic Substance into Respiratory Tract, Via Natural or Artificial Opening (ICD-10-PCS; 2016-05-26)
PROC: 3E0336Z Introduction of Nutritional Substance into Peripheral Vein, Percutaneous Approach (ICD-10-PCS; 2016-05-28)
PROC: 0B110F4 Bypass Trachea to Cutaneous with Tracheostomy Device, Open Approach (ICD-10-PCS; 2016-06-08)
PROC: 0DH60UZ Insertion of Feeding Device into Stomach, Open Approach (ICD-10-PCS; 2016-06-08)
PROC: 3E0G76Z Introduction of Nutritional Substance into Upper GI, Via Natural or Artificial Opening (ICD-10-PCS; 2016-06-09)
DX: C18.0 Malignant neoplasm of cecum (principal); J69.0 Pneumonitis due to inhalation of food and vomit; K72.00 Acute and subacute hepatic failure without coma; R65.21 Severe sepsis with septic shock; G62.81 Critical illness polyneuropathy; G92 Toxic encephalopathy; A41.9 Sepsis, unspecified organism; E87.0 Hyperosmolality and hypernatremia; K29.61 Other gastritis with bleeding; J80 Acute respiratory distress syndrome; N39.0 Urinary tract infection, site not specified; K91.841 Postprocedural hemorrhage of a digestive system organ or structure following other procedure; D68.9 Coagulation defect, unspecified; Z99.11 Dependence on respirator [ventilator] status; K91.3 Postprocedural intestinal obstruction; K40.30 Unilateral inguinal hernia, with obstruction, without gangrene, not specified as recurrent; F03.90 Unspecified dementia, unspecified severity, without behavioral disturbance, psychotic disturbance, mood disturbance, and anxiety; F79 Unspecified intellectual disabilities; K40.20 Bilateral inguinal hernia, without obstruction or gangrene, not specified as recurrent; K64.8 Other hemorrhoids; K57.90 Diverticulosis of intestine, part unspecified, without perforation or abscess without bleeding; K22.5 Diverticulum of esophagus, acquired; M19.90 Unspecified osteoarthritis, unspecified site; D50.0 Iron deficiency anemia secondary to blood loss (chronic); F41.1 Generalized anxiety disorder; F81.9 Developmental disorder of scholastic skills, unspecified; I49.3 Ventricular premature depolarization; I49.1 Atrial premature depolarization; E87.6 Hypokalemia; E83.42 Hypomagnesemia; J44.9 Chronic obstructive pulmonary disease, unspecified; Z87.891 Personal history of nicotine dependence